=== PATIENT | male | born 1955 | race Caucasian/White ===

== ENCOUNTER → 2018-04-10 08:11 | Outpatient (CLI) | payer OTHER, SELFPAY ==
[2018-04-10 12:08] LABS: Absolute Lymphocyte Count 0.51 X10^3/ul (0.83-4.51); Absolute Neutrophil Count 2.6 X10^3/uL (2.0-7.7); Basophil# 0.02 X10^3/uL; Basophil% 0.5 % (0-1); Eosinophil# 0.17 X10^3/uL; Eosinophils% 4.5 % (0-5); Hematocrit 43.4 % (40-54); Hemoglobin 14.4 g/dl (13.0-16.5); Lymphocyte # 0.51 X10^3/ul (4.0); Lymphocyte % 13.5 % (19-41); Mean Corp Hgb Conc 33.2 g/gl (32-36); Mean Corpuscular Hgb 30.3 pg (27.0-32.0); Mean Corpuscular Volume 91.2 fL (80-94); Mean Platelet Vol. 11.1 fl (6.2-12.0); Monocyte# 0.42 X10^3/uL; Monocyte% 11.1 % (0-10); Neutrophil # 2.64 X10^3/uL (2.7-7.7); Neutrophil % 69.9 % (47-70); Platelet Count 196 K/mm3 (150-450); RBC Distribution Width CV 12.9 % (11.6-14.6); RBC Distribution Width SD 42.3 fl (35.1-43.9); Red Blood Count 4.76 M/mm3 (4.6-6.2); White Blood Count 3.8 K/mm3 (4.4-11.0)
[2018-04-10 12:10] LABS: Differential Indicated SCAN CRITERIA MET; POSITIVE COUNT NO; POSITIVE DIFFERENTIAL YES; POSITIVE MORPHOLOGY NO
[2018-04-10 12:25] LABS: Microalbumin,Random Urine 34.3 mg/L (NO RANGE EST.); Microalbumin:Creatinine Ratio 13.5 mg/g CRE (<30 mg/g CRE)
[2018-04-10 12:38] LABS: Platelet Estimate ADEQUATE (ADEQ); Platelet Morphology LARGE
[2018-04-10 12:39] LABS: Red Cell Morphology NORM C+C NORMAL (NORM C&C)
[2018-04-10 12:45] LABS: Hemoglobin A1c 6.4 % (4.2-6.3)
[2018-04-10 13:00] LABS: ALB/GLOB Ratio 1.1 RATIO (0.9-2.4); AST(SGOT) 25 U/L (15-37); Alanine Aminotransfer ALT/SGPT 38 U/L (16-61); Albumin, Serum 3.9 g/dL (3.2-5.0); Alkaline Phosphatase 65 U/L (45-117); Anion Gap 10 (5-15); BUN 17 mg/dL (7-18); BUN/Creat Ratio 16.2 RATIO (10-20); Calcium,Total 8.9 mg/dL (8.5-10.1); Chloride 104 mmol/L (98-107); Cholesterol 177 mg/dL (200); Creatinine, Serum 1.05 mg/dL (0.70-1.30); EST Glomerular Filtration Rate 76 mL/min (>60); Est Glom Filt Rate - Afr Amer 91 mL/min (>60); Globulin 3.7 g/dL (2.2-4.2); Glucose 123 mg/dL (74-106); High Density Lipoprotein 43 mg/dL; PSA,Total - Annual Screen 2.21 ng/mL (0.00-4.00); Potassium 3.9 mmol/L (3.5-5.1); Protein, Total 7.6 g/dL (6.4-8.2); Sodium Level 141 mmol/L (136-145); Triglycerides 83 mg/dL; Uric Acid 6.8 mg/dL (3.5-7.2); Very Low Density Lipoprotein 17 mg/dL (5-40)
== END ==
PROVIDERS: Family Provider Family Medicine; PCP Family Medicine; Visit Provider Family Medicine
DX: E11.9 Type 2 diabetes mellitus without complications (principal); I10 Essential (primary) hypertension; Z12.5 Encounter for screening for malignant neoplasm of prostate; M10.9 Gout, unspecified; Z78.9 Other specified health status
CPT/HCPCS: 36415; 80053; 80061; 82043; 82570; 83036; 84153; 84550; 85025; G0103

== ENCOUNTER → 2019-05-28 08:13 | Outpatient (CLI) | payer MEDICARE, OTHER, SELFPAY ==
[2016-09-01 06:32] VITALS: BMI 24.3
[2019-05-28 09:01] LABS: Absolute Lymphocyte Count 0.53 X10^3/uL (0.83-4.51); Absolute Neutrophil Count 4.1 X10^3/uL (2.0-7.7); Basophil# 0.03 X10^3/uL; Basophil% 0.6 % (0-1); Eosinophil# 0.18 X10^3/uL; Eosinophils% 3.3 % (0-5); Hematocrit 42.1 % (40-54); Hemoglobin 13.7 g/dL (13.0-16.5); Lymphocyte # 0.53 X10^3/ul (4.0); Lymphocyte % 9.7 % (19-41); Mean Corp Hgb Conc 32.5 g/dL (32-36); Mean Corpuscular Hgb 29.5 pg (27.0-32.0); Mean Corpuscular Volume 90.5 fL (80-94); Monocyte# 0.57 X10^3/uL; Monocyte% 10.5 % (0-10); NRBC Flagged by Analyzer 0 % (0-5); Neutrophil # 4.11 X10^3/uL (2.7-7.7); Neutrophil % 75.3 % (47-70); POSITIVE DIFFERENTIAL YES; Platelet Count 189 K/mm3 (150-450); RBC Distribution Width CV 12.8 % (11.6-14.6); RBC Distribution Width SD 42.1 fl (35.1-43.9); Red Blood Count 4.65 M/mm3 (4.6-6.2); White Blood Count 5.5 K/mm3 (4.4-11.0)
[2019-05-28 09:05] LABS: Differential Indicated SCAN CRITERIA MET
[2019-05-28 09:29] LABS: ALB/GLOB Ratio 1.2 RATIO (0.9-2.4); AST(SGOT) 23 U/L (15-37); Alanine Aminotransfer ALT/SGPT 53 U/L (16-61); Albumin, Serum 3.9 g/dL (3.2-5.0); Alkaline Phosphatase 69 U/L (45-117); Anion Gap 4 (5-15); BUN 19 mg/dL (7-18); BUN/Creat Ratio 17.8 RATIO (10-20); Calcium,Total 9.2 mg/dL (8.5-10.1); Chloride 106 mmol/L (98-107); Creatinine, Serum 1.07 mg/dL (0.70-1.30); EST Glomerular Filtration Rate 74 mL/min (>60); Est Glom Filt Rate - Afr Amer 89 mL/min (>60); Globulin 3.3 g/dL (2.2-4.2); Glucose 149 mg/dL (74-106); PSA,Total - Annual Screen 2.44 ng/mL (0.00-4.00); Potassium 3.5 mmol/L (3.5-5.1); Protein, Total 7.2 g/dL (6.4-8.2); Sodium Level 139 mmol/L (136-145)
[2019-05-28 09:30] LABS: Hemoglobin A1c 6.7 % (4.2-6.3)
[2019-05-28 09:36] LABS: Microalbumin,Random Urine 37.4 mg/L (NO RANGE EST.); Microalbumin:Creatinine Ratio 9.6 mg/g CRE (<30 mg/g CRE)
== END ==
LOC: LAB.FUTURE 08:19 → BFHLAB 08:39
PROVIDERS: Family Provider Family Medicine; PCP Family Medicine; Visit Provider Family Medicine
DX: Z00.00 Encounter for general adult medical examination without abnormal findings (principal); I10 Essential (primary) hypertension; E11.9 Type 2 diabetes mellitus without complications; M10.9 Gout, unspecified; Z12.5 Encounter for screening for malignant neoplasm of prostate
CPT/HCPCS: 36415; 80053; 82043; 82570; 83036; 84153; 84550; 85025; G0103

== ENCOUNTER → 2020-05-11 09:56 | Outpatient (CLI) | payer MEDICARE, OTHER, SELFPAY ==
[2020-05-11 12:59] LABS: Anion Gap 7 (5-15); BUN 17 mg/dL (7-18); Calcium,Total 9.6 mg/dL (8.5-10.1); Chloride 100 mmol/L (98-107); Creatinine, Serum 1.21 mg/dL (0.70-1.30); EST Glomerular Filtration Rate 64 mL/min (>60); Est Glom Filt Rate - Afr Amer 77 mL/min (>60); Glucose 164 mg/dL (74-106); Potassium 3.5 mmol/L (3.5-5.1); Sodium Level 138 mmol/L (136-145)
== END ==
PROVIDERS: PCP Family Medicine; Visit Provider Family Medicine
DX: I10 Essential (primary) hypertension (principal)
CPT/HCPCS: 36415; 80048

== ENCOUNTER → 2020-08-03 12:09 | Outpatient (CLI) | payer MEDICARE, OTHER, SELFPAY ==
--- NOTE | 2020-08-03 12:17 | EKG12_ITS ---
Test Reason : PREOP Blood Pressure : / mmHG Vent. Rate : 071 BPM Atrial Rate : 071 BPM P-R Int : 168 ms QRS Dur : 102 ms QT Int : 410 ms P-R-T Axes : 083 047 041 degrees QTc Int : 445 ms Normal sinus rhythm Nonspecific ST abnormality Abnormal ECG Confirmed by VIRIDIANA WHEAT, SANGITA ([id number]), features editor CHELSEA HARRINGTON ([id number]) on 08/04/2020 10:46:27 AM Referred By: Edmundo Nguyen Confirmed By:SANGITA KEMP MD
--- NOTE | 2020-08-03 12:17 | RAD_ITS ---
STUDY: X-RAY CHEST REASON FOR EXAM: Male, 65 years old. PRE OP TECHNIQUE: PA and lateral views of the chest. COMPARISON: None. FINDINGS: Hyperinflation. There is no demonstrated pleural abnormality. Normal size heart. Normal mediastinum and reyna. There is prominence of the pulmonary hilar arteries without peripheral pulmonary vascular congestion, suggesting pulmonary hypertension. Normal visualized aortic arch and descending thoracic aorta. There is a dextroscoliosis of the thoracic spine. Prior rotator cuff surgery of the left shoulder. There is no demonstrated abnormality of the visualized soft tissue structures of the upper abdomen. RAD/Chest PA and Lateral IMPRESSION: Hyperinflation. The lungs are clear. Electronically Signed: Bossman Oliveira MD at 13:52 EDT , Service support ,
[2020-08-03 13:45] LABS: Absolute Lymphocyte Count 0.59 X10^3/uL (0.83-4.51); Absolute Neutrophil Count 2.8 X10^3/uL (2.0-7.7); Basophil# 0.03 X10^3/uL; Basophil% 0.7 % (0-1); Eosinophil# 0.11 X10^3/uL; Eosinophils% 2.7 % (0-5); Hematocrit 41.9 % (40-54); Hemoglobin 13.9 g/dL (13.0-16.5); Lymphocyte # 0.59 X10^3/ul (4.0); Lymphocyte % 14.6 % (19-41); Mean Corp Hgb Conc 33.2 g/dL (32-36); Mean Corpuscular Hgb 30.5 pg (27.0-32.0); Mean Corpuscular Volume 92.1 fL (80-94); Mean Platelet Vol. 11.5 fl (6.2-12.0); Monocyte# 0.51 X10^3/uL; Monocyte% 12.6 % (0-10); NRBC Flagged by Analyzer 0 % (0-5); Neutrophil # 2.79 X10^3/uL (2.7-7.7); Neutrophil % 68.9 % (47-70); POSITIVE DIFFERENTIAL YES; Platelet Count 207 K/mm3 (150-450); RBC Distribution Width CV 12.3 % (11.6-14.6); RBC Distribution Width SD 41.6 fl (35.1-43.9); Red Blood Count 4.55 M/mm3 (4.6-6.2); White Blood Count 4.1 K/mm3 (4.4-11.0)
[2020-08-03 13:47] LABS: Differential Indicated SCAN CRITERIA MET
[2020-08-03 13:48] LABS: International Normalized Ratio 1.1; Prothrombin Time (Protime)PT. 13.1 SECONDS (11.7-14.9)
[2020-08-03 13:49] LABS: Partial Thromboplast Time 33.9 Seconds (24.1-36.2)
[2020-08-03 14:04] LABS: Differential Comment SCANNED
[2020-08-03 14:10] LABS: Anion Gap 5 (5-15); BUN 16 mg/dL (7-18); BUN/Creat Ratio 14.3 RATIO (10-20); Calcium,Total 9.5 mg/dL (8.5-10.1); Chloride 100 mmol/L (98-107); Creatinine, Serum 1.12 mg/dL (0.70-1.30); EST Glomerular Filtration Rate 70 mL/min (>60); Est Glom Filt Rate - Afr Amer 84 mL/min (>60); Glucose 163 mg/dL (74-106); Potassium 3.3 mmol/L (3.5-5.1); Sodium Level 138 mmol/L (136-145)
[2020-08-03 15:41] LABS: Probe Check PASS; Specimen Processing Control PASS
[2020-08-04 11:37] LABS: Pathologist Review Reviewed
== END ==
PROVIDERS: PCP Family Medicine; Referring Provider Orthopaedic Surgery; Visit Provider Orthopaedic Surgery
DX: Z01.818 Encounter for other preprocedural examination (principal); E11.9 Type 2 diabetes mellitus without complications; Z11.59 Encounter for screening for other viral diseases
CPT/HCPCS: 36415; 71046; 80048; 83036; 85025; 85610; 85730; 87635; 93005; C9803; U0002

== ENCOUNTER → 2020-08-28 15:33 | Outpatient (CLI) | payer MEDICARE, OTHER, SELFPAY ==
[2016-09-01 06:32] VITALS: BMI 24.3
== END ==
PROVIDERS: PCP Family Medicine; Visit Provider Orthopaedic Surgery
DX: Z98.890 Other specified postprocedural states (principal)
CPT/HCPCS: 87070; 87205

== ENCOUNTER 2020-11-15 06:11 | Emergency (ER) | payer MEDICARE, OTHER, SELFPAY ==
[2020-11-15 06:11] VITALS: BP 167/77; PULSE 68; RESP 16; TEMP 36.6; O2SAT 99; BMI 24.3
--- NOTE | 2020-11-15 06:27 | CT_ITS ---
STUDY: CT BRAIN WITHOUT CONTRAST REASON FOR EXAM: Male, 65 years old. vertigo RADIATION DOSAGE (If Supplied By Facility): CTDIvol = ( 44.99 ) mGy, DLP = ( 779.24 ) mGycm TECHNIQUE: Transaxial CT imaging of the brain was performed without administration of intravenous contrast material. Individualized dose optimization techniques were used for this CT. COMPARISON: 03/29/2014 FINDINGS: Normal soft tissue structures. Normal calvarium. Normal size ventricles and extra-axial spaces for the patient''s age. Normal white matter tracts of the cerebral hemispheres. Normal basal ganglia and thalami. Normal brainstem. Normal cerebellum. There is no intracranial hemorrhage. There are no findings of an acute ischemic infarction. Normal visualized paranasal sinuses. CT/Brain/Head without Contrast IMPRESSION: Normal unenhanced CT scan of the brain. Electronically Signed: Nikolai Mcdaniel MD at 7:19 EDT Tel , Service support ,
--- NOTE | 2020-11-15 06:28 | EKG12_ITS ---
Test Reason : DIZZINESS Blood Pressure : / mmHG Vent. Rate : 063 BPM Atrial Rate : 063 BPM P-R Int : 184 ms QRS Dur : 102 ms QT Int : 454 ms P-R-T Axes : 055 054 033 degrees QTc Int : 464 ms Normal sinus rhythm Nonspecific ST abnormality Abnormal ECG Confirmed by VIRIDIANA WHEAT, SANGITA ([id number]), health editor CHELSEA HARRINGTON ([id number]) on 11/18/2020 9:17:23 AM Referred By: JEVON Confirmed By:SANGITA KEMP MD
--- NOTE | 2020-11-15 06:31 | EX.ED.DYSGE1 ---
HPI History of Present Illness Chief Complaint: Dizziness Narrative Narrative: Patient presents with vertigo. This started this morning when he woke up he felt off balance. He feels like he cannot walk in a straight line. He has no vision changes. He has no weakness or paresthesias or confusion or any other neurological symptoms. [facility] Medical History (Updated 11/15/20 @ 06:[address] Kulwant Painter MD) Diabetes History of kidney stones Hypertension Lumbar stenosis Home Medications metformin 1,000 mg PO BIDCM 02/06/15 [History Last Taken 09/01/16] diltiazem HCl 240 mg PO DAILY 11/15/20 [History Last Taken Unknown] dulaglutide [Trulicity] 1.5 mg SUBCUT QWEEK 11/15/20 [History Last Taken 11/11/20] hydrochlorothiazide 25 mg PO DAILY 11/15/20 [History Last Taken Unknown] sitagliptin [Januvia] 100 mg PO DAILY 11/15/20 [History Last Taken Unknown] Allergy/AdvReac Type Severity Reaction Status Date / Time No Known Allergies Allergy Verified 11/15/20 06:15 Social History Smoking Status: Never smoker ROS ROS ED ROS Narrative Past medical history: Reviewed, includes diabetes, hypertension Medications: Reviewed Social history: Noncontributory Review of systems: All systems negative except as indicated General: No fever Eyes: No visual changes ENT: No upper airway congestion, normal voice Neck: No neck pain Cardiovascular: No chest pain Respiratory: No shortness of breath or cough Gastrointestinal: No abdominal pain, nausea vomiting or diarrhea Genitourinary: No dysuria Musculoskeletal: Denies myalgias no difficulty with ambulation Skin: No rash Neurological: No memory loss, confusion or any focal weakness. Vertigo as in HPI Psych: No recent behavioral changes Hematologic: No easy bleeding or easy bruising EXAM Physical Exam Narrative Exam Narrative: Physical exam General: Patient appears uncomfortable Head: Normocephalic, Atraumatic Eyes: Conjunctiva not pale ENT: Moist mucous membranes Neck: Supple, Nontender, No lymphadenopathy Cardiovascular: Regular rate, Regular rhythm Respiratory: No distress, CTA bilaterally Abdomen: Soft, Nontender, Nondistended Back: Nontender, Normal Inspection. Negative for: CVA tenderness Extremities: Nontender, No edema Skin: Normal color, No rash Neurological: Alert, Normal Strength, Normal Sensation. He has normal [id number], normal Romberg test. Psychological: Normal affect Const Vital Signs: 11/15/20 06:11 11/15/20 06:24 Temperature 97.8 F Temperature Source Oral Pulse Rate 68 Respiratory Rate 16 Respiratory Effort Normal Non-Labored Respiratory Pattern Normal Blood Pressure 167/77 H Blood Pressure Mean 107 Pulse Ox 99 Oxygen Delivery Method Room Air MDM MDM MDM Narrative Medical decision making narrative: Patient will be treated symptomatically, I will check a CT of the head, however because of his risk factors he will need an MRI. Patient care will be turned over to the oncoming ED physician. Discharge Plan Triage Chief Complaint: Dizziness ED Provider: Kulwant Painter Dx/Rx/DC Orders Clinical Impression: Vertigo Prescriptions: No Action metformin 1,000 MG tablet 1,000 mg PO BIDCM RF: 0 diltiazem HCl 240 mg Capsule,Extended Release 24 Hr 240 mg PO DAILY RF: 0 Januvia 100 mg Tablet 100 mg PO DAILY RF: 0 Trulicity 1.5 mg/0.5 mL Pen Injector 1.5 mg SUBCUT QWEEK RF: 0 hydrochlorothiazide 25 mg tablet 25 mg PO DAILY RF: 0 Primary Care Provider: Yury Orozco Referrals: Yury Orozco DO [Primary Care Provider] -
[2020-11-15] MEDS: Ondansetron 4 MG/2 ML Vial IV (06:42)
[2020-11-15] MEDS: 0.9% Normal Saline 1,000 ML 1000 ML IV (06:42)
[2020-11-15] MEDS: Meclizine HCl 25 MG Tablet PO (06:42)
[2020-11-15 06:53] LABS: Absolute Lymphocyte Count 0.53 X10^3/uL (0.83-4.51); Absolute Neutrophil Count 3.4 X10^3/uL (2.0-7.7); Basophil# 0.02 X10^3/uL; Basophil% 0.4 % (0-1); Eosinophil# 0.17 X10^3/uL; Eosinophils% 3.7 % (0-5); Hematocrit 39.7 % (40-54); Hemoglobin 13.4 g/dL (13.0-16.5); Lymphocyte # 0.53 X10^3/ul (0.83-4.51); Lymphocyte % 11.6 % (19-41); Mean Corp Hgb Conc 33.8 g/dL (32-36); Mean Corpuscular Hgb 30.5 pg (27.0-32.0); Mean Corpuscular Volume 90.4 fL (80-94); Mean Platelet Vol. 12.1 fl (6.2-12.0); Monocyte# 0.44 X10^3/uL; Monocyte% 9.6 % (0-10); NRBC Flagged by Analyzer 0 % (0-5); Neutrophil # 3.38 X10^3/uL (2.7-7.7); Neutrophil % 74.3 % (47-70); POSITIVE DIFFERENTIAL YES; Platelet Count 300 K/mm3 (150-450); RBC Distribution Width CV 12.2 % (11.6-14.6); RBC Distribution Width SD 40.3 fl (35.1-43.9); Red Blood Count 4.39 M/mm3 (4.6-6.2); White Blood Count 4.6 K/mm3 (4.4-11.0)
[2020-11-15 06:54] LABS: Differential Indicated SCAN CRITERIA MET
[2020-11-15 07:13] LABS: Troponin-I HS 7.2 pg/mL (3.0-78.5)
[2020-11-15 07:19] LABS: Differential Comment SCANNED
[2020-11-15 07:40] LABS: ALB/GLOB Ratio 1.1 RATIO (0.9-2.4); AST(SGOT) 29 U/L (15-37); Alanine Aminotransfer ALT/SGPT 38 U/L (16-61); Albumin, Serum 3.9 g/dL (3.2-5.0); Alkaline Phosphatase 68 U/L (45-117); Anion Gap 8 (5-15); BUN 21 mg/dL (7-18); BUN/Creat Ratio 19.6 RATIO (10-20); Calcium,Total 9.1 mg/dL (8.5-10.1); Chloride 101 mmol/L (98-107); Creatinine, Serum 1.07 mg/dL (0.70-1.30); EST Glomerular Filtration Rate 73 mL/min (>60); Est Glom Filt Rate - Afr Amer 89 mL/min (>60); Estimated Creatinine Clearance 83.37 ml/min; Globulin 3.4 g/dL (2.2-4.2); Glucose 214 mg/dL (74-106); Potassium 3.4 mmol/L (3.5-5.1); Protein, Total 7.3 g/dL (6.4-8.2); Sodium Level 138 mmol/L (136-145)
[2020-11-15 08:30] VITALS: BP 150/80; PULSE 61; RESP 15; O2SAT 97
--- NOTE | 2020-11-15 09:11 | PCM.CONS.GEN ---
Assessment & Plan Assessment/Plan (1) Vertigo: PLAN: 1. acute vertigo Symptoms now resolved With the previous history of similar symptoms, this is now resolved symptoms, his fatigue nystagmus. This is all consistent with benign paroxysmal positional vertigo. I will feel it is necessary for the patient, and have further imaging to rule out stroke as I feel the likelihood of this being stroke is extremely slim. I explained this to the patient and his and informed that we could bring him in to get an MRI but would like to be of low yield and I recommended discharge home with as needed meclizine and did recommend a checks and videos out in regards to performing the Aline maneuver in case this were to be protracted make a plan to try this at home. They are completely fine with going home. I did advise that he follow-up with his primary care physician in the next coming weeks just to make sure this continues to do okay in regards to this vertigo. Patient medically stable to be discharged. Discussed with Dr. Kay. HPI Consult Data Date of Consult: 11/15/20 HPI Narrative Reason for Consultation: dizziness HPI Narrative: CHANO MACEDO, is a 65 M who presents presents after waking up acutely dizzy. Patient was diaphoretic and nauseated but no vomiting. Symptoms were concerning and brought him to the emergency room. Patient received and also drawn as well as meclizine. Patient is currently feeling better at this time. Patient had similar symptoms years ago though is vertigo and these felt very similar. [facility] Medical History Diabetes History of kidney stones Hypertension Lumbar stenosis Home Medications metformin 1,000 mg PO BIDCM 02/06/15 [History Last Taken 09/01/16] diltiazem HCl 240 mg PO DAILY 11/15/20 [History Last Taken Unknown] dulaglutide [Trulicity] 1.5 mg SUBCUT QWEEK 11/15/20 [History Last Taken 11/11/20] hydrochlorothiazide 25 mg PO DAILY 11/15/20 [History Last Taken Unknown] meclizine 25 mg PO Q8H PRN PRN #20 tab 11/15/20 [Rx Last Taken Unknown] sitagliptin [Januvia] 100 mg PO DAILY 11/15/20 [History Last Taken Unknown] Allergy/AdvReac Type Severity Reaction Status Date / Time No Known Allergies Allergy Verified 11/15/20 06:15 Social History (Updated 11/15/20 @ 09:[address] Giancarlo Parker, DO) Smoking Status: Never smoker alcohol intake: never ROS ROS Narrative All review of systems were negative except as mentioned above in the history of present illness and the other review of systems. Physical Exam Const alert, no apparent distress, average body habitus and healthy appearing General Appearance: cooperative HEENT normocephalic, head/scalp atraumatic, hearing grossly normal bilaterally, moist oral mucous membranes and dentition normal Eyes PERRL and EOMs intact bilaterally Eyes Narrative: Patient did have bilateral nystagmus but more pronounced on the right but the nystagmus fatigued bilaterally. Resp normal respiratory effort, no use of accessory muscles and clear to auscultation bilaterally Cardio regular rate, regular rhythm, S1 normal heart sound and S2 normal heart sound GI normal to inspection, nondistended, normoactive bowel sounds, soft to palpation, non-tender and non-distended Extremity normal to inspection Neuro Sensorium / Orientation: awake Psych affect normal Lab / Micro Data Attestation: I reviewed the patient's lab results. Result Diagrams: 11/15/20 06:45 11/15/20 07:15 Labs: Laboratory Results - last 24 hr 11/15/20 11/15/20 11/15/20 06:45 06:45 06:45 WBC 4.6 RBC 4.39 L Hgb 13.4 Hct 39.7 L MCV 90.4 MCH 30.5 MCHC 33.8 RDW Std Deviation 40.3 RDW Coeff of Susy 12.2 Plt Count 300 MPV 12.1 H Immature Gran % (Auto) 0.400 Neut % (Auto) 74.3 H Lymph % (Auto) 11.6 L [place] % (Auto) 9.6 Eos % (Auto) 3.7 Baso % (Auto) 0.4 Absolute Neuts (auto) 3.4 Absolute Lymphs (auto) 0.53 L Nucleated RBC % 0 Differential Comment SCANNED Sodium Cancelled Potassium Cancelled Chloride Cancelled Carbon Dioxide Cancelled Anion Gap Cancelled BUN Cancelled Creatinine Cancelled Estim Creat Clear Calc Cancelled Est GFR (MDRD) Af Amer Cancelled Est GFR (MDRD) Non-Af Cancelled BUN/Creatinine Ratio Cancelled Glucose Cancelled Calcium Cancelled Total Bilirubin Cancelled AST Cancelled ALT Cancelled Alkaline Phosphatase Cancelled Troponin I High Sens 7.2 Total Protein Cancelled Albumin Cancelled Globulin Cancelled Albumin/Globulin Ratio Cancelled 11/15/20 07:15 WBC RBC Hgb Hct MCV MCH MCHC RDW Std Deviation RDW Coeff of Susy Plt Count MPV Immature Gran % (Auto) Neut % (Auto) Lymph % (Auto) [place] % (Auto) Eos % (Auto) Baso % (Auto) Absolute Neuts (auto) Absolute Lymphs (auto) Nucleated RBC % Differential Comment Sodium 138 Potassium 3.4 L Chloride 101 Carbon Dioxide 29.0 Anion Gap 8 BUN 21 H Creatinine 1.07 Estim Creat Clear Calc 83.37 Est GFR (MDRD) Af Amer 89 Est GFR (MDRD) Non-Af 73 BUN/Creatinine Ratio 19.6 Glucose 214 H Calcium 9.1 Total Bilirubin 0.50 AST 29 ALT 38 Alkaline Phosphatase 68 Troponin I High Sens Total Protein 7.3 Albumin 3.9 Globulin 3.4 Albumin/Globulin Ratio 1.1 EKG Initial EKG: Attestation: I personally reviewed and interpreted this EKG as follows: Prior EKG tracings: available for review EKG Rhythm Intrepretation: Sinus Rhythm Radiology Impression Brain CT 11/15/20 06:27 IMPRESSION: Normal unenhanced CT scan of the brain. Electronically Signed: Nikolai Mcdaniel MD at 7:19 EDT Tel , Service support , Charges/Coding Visit Charges Office Visits / Consults: [id number] OP Consult L3
[2020-11-15 09:19] VITALS: BP 171/82; PULSE 63; RESP 18; O2SAT 97
== END 2020-11-15 09:37 | disposition home or self-care (01) ==
PROVIDERS: Emergency Medicine; Emergency Provider Emergency Medicine; PCP Family Medicine
DX: R42 Dizziness and giddiness (principal); E11.9 Type 2 diabetes mellitus without complications; Z79.84 Long term (current) use of oral hypoglycemic drugs; Z79.899 Other long term (current) drug therapy; Z87.442 Personal history of urinary calculi
CPT/HCPCS: 70450; 80053; 84484; 85025; 93005; 96374; 99285; J7030; A4216; J2405

== ENCOUNTER → 2022-02-15 | Outpatient (CLI) | payer MEDICARE, OTHER, SELFPAY ==
[2022-02-15 12:28] LABS: Absolute Lymphocyte Count 0.57 X10^3/uL (0.83-4.51); Absolute Neutrophil Count 2.9 X10^3/uL (2.0-7.7); Basophil# 0.04 X10^3/uL; Eosinophil# 0.16 X10^3/uL; Eosinophils% 3.8 % (0-5); Hematocrit 41.4 % (40-54); Hemoglobin 13.6 g/dL (13.0-16.5); Lymphocyte # 0.57 X10^3/ul (0.83-4.51); Lymphocyte % 13.6 % (19-41); Mean Corp Hgb Conc 32.9 g/dL (32-36); Mean Corpuscular Hgb 30.5 pg (27.0-32.0); Mean Corpuscular Volume 92.8 fL (80-94); Mean Platelet Vol. 11.1 fl (6.2-12.0); Monocyte# 0.47 X10^3/uL; Monocyte% 11.2 % (0-10); NRBC Flagged by Analyzer 0 % (0-5); Neutrophil # 2.92 X10^3/uL (2.7-7.7); Neutrophil % 69.9 % (47-70); POSITIVE DIFFERENTIAL YES; Platelet Count 251 K/mm3 (150-450); RBC Distribution Width CV 12.1 % (11.6-14.6); RBC Distribution Width SD 41.3 fl (35.1-43.9); Red Blood Count 4.46 M/mm3 (4.6-6.2); White Blood Count 4.2 K/mm3 (4.4-11.0)
[2022-02-15 12:30] LABS: Differential Indicated SCAN CRITERIA MET
[2022-02-15 13:07] LABS: Platelet Estimate ADEQUATE (ADEQ); Red Cell Morphology NORM C+C NORMAL (NORM C&C)
[2022-02-15 13:09] LABS: ALB/GLOB Ratio 1.1 RATIO (0.9-2.4); AST(SGOT) 16 U/L (15-37); Alanine Aminotransfer ALT/SGPT 36 U/L (16-61); Alkaline Phosphatase 60 U/L (45-117); Anion Gap 8 (5-15); BUN 17 mg/dL (7-18); BUN/Creat Ratio 15.2 RATIO (10-20); Calcium,Total 9.7 mg/dL (8.5-10.1); Chloride 103 mmol/L (98-107); Cholesterol 198 mg/dL (200); Creatinine, Serum 1.12 mg/dL (0.70-1.30); EST Glomerular Filtration Rate 69 mL/min (>60); Est Glom Filt Rate - Afr Amer 84 mL/min (>60); Globulin 3.6 g/dL (2.2-4.2); Glucose 152 mg/dL (74-106); High Density Lipoprotein 40 mg/dL; PSA,Total - Annual Screen 3.19 ng/mL (0.00-4.00); Potassium 4.3 mmol/L (3.5-5.1); Protein, Total 7.6 g/dL (6.4-8.2); Sodium Level 139 mmol/L (136-145); Triglycerides 119 mg/dL; Very Low Density Lipoprotein 24 mg/dL (5-40)
[2022-02-15 13:20] LABS: Microalbumin,Random Urine 9.4 mg/L (NO RANGE EST.); Microalbumin:Creatinine Ratio 3.6 mg/g CRE (<30 mg/g CRE)
[2022-02-15 13:26] LABS: Hemoglobin A1c 6.6 % (3.8-5.6)
[2022-02-16 13:39] LABS: Pathologist Review Reviewed
== END | disposition home or self-care (01) ==
LOC: BFHLAB 08:41
PROVIDERS: PCP Family Medicine; Referring Provider Family Medicine; Visit Provider Family Medicine
DX: E11.9 Type 2 diabetes mellitus without complications (principal); I10 Essential (primary) hypertension; Z12.5 Encounter for screening for malignant neoplasm of prostate
CPT/HCPCS: 36415; 80053; 80061; 82043; 82570; 83036; 84153; 85025; G0103

== ENCOUNTER → 2023-02-23 | Outpatient (CLI) | payer MEDICARE, OTHER, SELFPAY ==
[2023-02-23 12:21] LABS: Absolute Neutrophil Count 4.5 X10^3/uL (2.0-7.7); Basophil# 0.02 X10^3/uL; Basophil% 0.3 % (0-1); Eosinophil# 0.15 X10^3/uL; Eosinophils% 2.5 % (0-5); Hematocrit 40.4 % (40-54); Hemoglobin 13.3 g/dL (13.0-16.5); Lymphocyte % 11.7 % (19-41); Mean Corp Hgb Conc 32.9 g/dL (32-36); Mean Corpuscular Hgb 30.4 pg (27.0-32.0); Mean Corpuscular Volume 92.4 fL (80-94); Mean Platelet Vol. 10.8 fl (6.2-12.0); NRBC Flagged by Analyzer 0 % (0-5); Platelet Count 268 K/mm3 (150-450); RBC Distribution Width CV 12.2 % (11.6-14.6); RBC Distribution Width SD 41.1 fl (35.1-43.9); Red Blood Count 4.37 M/mm3 (4.6-6.2)
[2023-02-23 12:39] LABS: Vitamin B12 445 pg/mL (211-911)
[2023-02-23 12:48] LABS: AST(SGOT) 17 U/L (15-37); Alanine Aminotransfer ALT/SGPT 36 U/L (16-61); Albumin, Serum 3.8 g/dL (3.2-5.0); Alkaline Phosphatase 72 U/L (45-117); Anion Gap 6 (5-15); BUN 19 mg/dL (7-18); BUN/Creat Ratio 15.7 RATIO (10-20); Calcium,Total 9.4 mg/dL (8.5-10.1); Chloride 103 mmol/L (98-107); Cholesterol 174 mg/dL (200); Creatinine, Serum 1.21 mg/dL (0.70-1.30); EST Glomerular Filtration Rate 63 mL/min (>60); Est Glom Filt Rate - Afr Amer 77 mL/min (>60); Globulin 3.7 g/dL (2.2-4.2); Glucose 141 mg/dL (74-106); High Density Lipoprotein 37 mg/dL; PSA,Total - Annual Screen 2.98 ng/mL (0.00-4.00); Potassium 3.5 mmol/L (3.5-5.1); Protein, Total 7.5 g/dL (6.4-8.2); Sodium Level 139 mmol/L (136-145); T4 Free Direct 1.09 ng/dL (0.76-1.46); Thyroid Stim Hormone (TSH) 1.17 uIU/mL (0.358-3.74); Triglycerides 133 mg/dL; Very Low Density Lipoprotein 27 mg/dL (5-40)
[2023-02-23 13:06] LABS: Microalbumin,Random Urine 9.7 mg/L (NO RANGE EST.); Microalbumin:Creatinine Ratio 3.8 mg/g CRE (<30 mg/g CRE)
[2023-02-23 18:24] LABS: Hemoglobin A1c 6.7 % (3.8-5.6)
== END | disposition home or self-care (01) ==
LOC: BFHLAB 11:13
PROVIDERS: PCP Family Medicine; Visit Provider Family Medicine
DX: E11.9 Type 2 diabetes mellitus without complications (principal); I10 Essential (primary) hypertension; Z12.5 Encounter for screening for malignant neoplasm of prostate
CPT/HCPCS: 36415; 80053; 80061; 82043; 82570; 82607; 83036; 84153; 84439; 84443; 85025; G0103

== ENCOUNTER → 2024-02-27 | Outpatient (CLI) | payer MEDICARE, OTHER, SELFPAY ==
[2024-02-27 12:28] LABS: Absolute Lymphocyte Count 0.84 X10^3/uL (0.83-4.51); Absolute Neutrophil Count 4.4 X10^3/uL (2.0-7.7); Basophil# 0.04 X10^3/uL; Basophil% 0.7 % (0-1); Eosinophil# 0.13 X10^3/uL; Eosinophils% 2.2 % (0-5); Hemoglobin 13.1 g/dL (13.0-16.5); Lymphocyte # 0.84 X10^3/ul (0.83-4.51); Lymphocyte % 14.1 % (19-41); Mean Corp Hgb Conc 32.8 g/dL (32-36); Mean Corpuscular Hgb 30.5 pg (27.0-32.0); Mean Corpuscular Volume 93.2 fL (80-94); Mean Platelet Vol. 11.3 fl (6.2-12.0); Monocyte# 0.54 X10^3/uL; NRBC Flagged by Analyzer 0 % (0-5); Neutrophil # 4.37 X10^3/uL (2.7-7.7); Neutrophil % 73.2 % (47-70); Platelet Count 269 K/mm3 (150-450); RBC Distribution Width CV 12.6 % (11.6-14.6); RBC Distribution Width SD 43.2 fl (35.1-43.9); Red Blood Count 4.29 M/mm3 (4.6-6.2)
[2024-02-27 12:37] LABS: Hemoglobin A1c 7.1 % (3.8-5.6)
[2024-02-27 12:42] LABS: ALB/GLOB Ratio 1.1 RATIO (0.9-2.4); AST(SGOT) 14 U/L (15-37); Alanine Aminotransfer ALT/SGPT 28 U/L (16-61); Alkaline Phosphatase 68 U/L (45-117); Anion Gap 6 (5-15); BUN 31 mg/dL (7-18); BUN/Creat Ratio 24.4 RATIO (10-20); Chloride 105 mmol/L (98-107); Cholesterol 195 mg/dL (200); Creatinine, Serum 1.27 mg/dL (0.70-1.30); EST Glomerular Filtration Rate 60 mL/min (>60); Est Glom Filt Rate - Afr Amer 72 mL/min (>60); Globulin 3.5 g/dL (2.2-4.2); Glucose 158 mg/dL (74-106); High Density Lipoprotein 44 mg/dL; Potassium 4.6 mmol/L (3.5-5.1); Protein, Total 7.5 g/dL (6.4-8.2); Sodium Level 141 mmol/L (136-145); Triglycerides 97 mg/dL; Very Low Density Lipoprotein 19 mg/dL (5-40)
[2024-02-27 13:09] LABS: Microalbumin,Random Urine 6.5 mg/L (NO RANGE EST.)
== END | disposition home or self-care (01) ==
LOC: BFHLAB 10:07
PROVIDERS: PCP Family Medicine; Referring Provider Family Medicine; Visit Provider Family Medicine
DX: E11.9 Type 2 diabetes mellitus without complications (principal); I10 Essential (primary) hypertension
CPT/HCPCS: 36415; 80053; 80061; 82043; 82570; 83036; 85025

== ENCOUNTER → 2024-12-05 | Outpatient (CLI) | payer MEDICARE, OTHER, SELFPAY ==
--- NOTE | 2024-12-05 16:35 | STRESSREP ---
Stress Test Report Exercise stress test. 69-year-old man with a history of dyspnea on exertion Stress protocol: Resting EKG demonstrates normal sinus rhythm with a rate of 73 bpm resting blood pressure is 122/80 mmHg. The patient exercised according to the regular Jarrod protocol for a total duration of 6 minutes attaining a maximum heart rate of 129 bpm which was 86% of maximum predicted heart rate; the maximum workload was 7 metabolic equivalents. At rest there were no ST or T wave changes noted to suggest ischemia and at peak exercise [address] depression were noted in leads II, III and aVF V5 and V6 associated with premature ventricular complexes especially during recovery. The patient did not experience any chest discomfort but shortness of breath was noted. The peak blood pressure was 174/80 mmHg. Rate-pressure product was 19,000. Conclusion: Exercise stress test with EKG changes suggestive of ischemia at a moderate workload. Mild functional aerobic impairment. Premature ventricular complexes noted during exercise.
== END | disposition home or self-care (01) ==
LOC: CVS 09:54
PROVIDERS: PCP Family Medicine; Referring Provider Family Medicine; Visit Provider Family Medicine
DX: R06.09 Other forms of dyspnea (principal)
CPT/HCPCS: 93017

== ENCOUNTER → 2024-12-11 | Outpatient (CLI) | payer MEDICARE, OTHER, SELFPAY ==
--- NOTE | 2024-12-11 14:06 | RAD_ITS ---
PROCEDURE: CHEST PA AND LATERAL 12/11/2024 REASON FOR EXAM: LOVING TECHNIQUE: CHEST PA AND LATERAL COMPARISON: PA and lateral chest 08/03/2020. RAD/Chest PA and Lateral IMPRESSION: Degenerative changes of the spine and dextroscoliosis again noted. Lungs appear clear of acute disease. No pleural effusion or pneumothorax is noted. The cardiomediastinal silhouette is stable, without evidence of cardiomegaly. No acute process is seen. Reading Location: [place] [id number]
[2024-12-11 14:35] LABS: Hematocrit 38.2 % (40-54); Hemoglobin 13.0 g/dL (13.0-16.5); Immature Granulocytes Count 0.080 X10^3/uL (0.0-0.0); Mean Corp Hgb Conc 34.0 g/dL (32-36); Mean Corpuscular Volume 91.6 fL (80-94); Mean Platelet Vol. 10.4 fl (6.2-12.0); NRBC Flagged by Analyzer 0 % (0-5); Platelet Count 289 K/mm3 (150-450); RBC Distribution Width CV 12.2 % (11.6-14.6); RBC Distribution Width SD 40.8 fl (35.1-43.9); Red Blood Count 4.17 M/mm3 (4.6-6.2); White Blood Count 8.6 K/mm3 (4.4-11.0)
[2024-12-11 15:54] LABS: Anion Gap 14 (5-15); BUN 25 mg/dL (4-19); BUN/Creat Ratio 20.8 RATIO (10-20); Calcium,Total 9.8 mg/dL (7.6-11.0); Carbon Dioxide 26.9 mmol/L (21.0-32.0); Chloride 99 mmol/L (98-108); Glucose 141 mg/dL (70-99); Potassium 3.9 mmol/L (3.3-5.1)
== END | disposition home or self-care (01) ==
LOC: RAD 14:05
PROVIDERS: PCP Family Medicine; Referring Provider Physician Assistant Medical; Visit Provider Physician Assistant Medical
DX: R94.39 Abnormal result of other cardiovascular function study (principal); R09.89 Other specified symptoms and signs involving the circulatory and respiratory systems; R06.09 Other forms of dyspnea
CPT/HCPCS: 36415; 71046; 80048; 85025

== ENCOUNTER 2024-12-25 06:55 | Day surgery (SDC) | payer MEDICARE, OTHER, SELFPAY ==
[2024-12-24 07:58] VITALS: BMI 24.5
--- OUTSIDE RECORDS SUMMARY | 2024-12-25 06:58 | XMS RPT_ITS | CCD ---
Author Organization [facility] Inform ion Partnership [facility] Care Team Providers Care Laster Hand Name Role Phone Pam LUKE, Dr. Cotton Primary Care Provider [phone] Pam LUKE, Dr. Cotton Attending Provider [phone] Pam LUKE, Dr. Cotton Referring Provider [phone] Pam LUKE, Dr. Cotton Other Provider Teri WHEAT, Dr. Ritter Attending Provider Radha Gutierrez Attending Provider [phone] Radha Gutierrez Referring Provider [phone] Radha Gutierrez Attending Unavail able Radha Gutierrez Referring Unavail able Yury Orozco Primary Care Unavailable PamYury hernandez Attending Unavailable PamYury Referring Unavailable PamYury Primary Care Unavailable PamYury hernandez Referring Unavailable Pam, Yury Primary Care Unavailable Yury Orozco Attending Unavailable Stone Williamson Attending Unavailable Teri [place] Referring Unavailable Pam, Yury Primary Care Unavailable PamYury Attending Unavailable Pam, Yury Referring Unavailable Pam, Yury Primary Care Unavailable Teri, Stone Attending Unavailable Pam, Yury Referring Unavailable Pam, Yury Primary Care Unavailable PamYury hernandez Consulting Unavailable Pam, Yury Referring Unavailable Radha Gutierrez Attending Unavail able PamYury hernandez Primary Care Unavailable Allergies Allergy Classification Reported Allergen(s) Allergy Type Date of Onset Reaction(s) Facility (3 sources) Enalapril Drug Allergy 12-11-2024 [facility] (3 sources) Pravastatin Drug Allergy 12-11-2024 fatigue [facility] (3 sources) rosuvastatin Drug Allergy 12-11-2024 fatigue [facility] (1 source) Enalapril Drug Allergy 12-11-2024 [facility] (1 source) Pravastatin Drug Allergy 12-11-2024 [facility] (1 source) rosuvastatin Drug Allergy 12-11-2024 [facility] Medications Current Medications Medication Drug Class(es) Dates Sig (Normalized) Sig (Original) aspirin 81 mg delayed release oral tablet (3 sources) Platelet Aggregation Inhibitor, Nonsteroidal Anti-inflammatory Drug Start: 12-11-2024 take 1 tablet by mouth once daily Aspirin (Adult Aspirin Regimen) 81 mg tablet,delayed release (DR/EC) Active 81 mg PO daily December 11, 2024 12:00am cholecalciferol 0.05 mg oral capsule (3 sources) Vitamin D Start: 12-11-2024 take 1 capsule by mouth once daily Cholecalciferol (Vitamin D3) 50 mcg (2,000 unit) capsule Active 50 ug PO daily December 11, 2024 12:00am 24 hr dilTIAZem hydrochloride 360 mg extended release oral capsule (8 sources) Calcium Channel Colleen Start: 12-11-2024 take 1 capsule by mouth every twenty-four hours Diltiazem Hcl 360 mg capsule,extended release 24hr Active mg PO December 11, 2024 12:00am Start: 11-15-2020 End: 12-11-2024 take 1 capsule by mouth once daily Diltiazem Hcl 240 mg Capsule,Extended Release 24 Hr Discontinued 240 mg PO DAILY November 15, 2020 12:00am December 11, 2024 7:59am ezetimibe 10 mg oral tablet (3 sources) Dietary Cholesterol Absorption Inhibitor Start: 12-11-2024 take 1 tablet by mouth once daily Ezetimibe (Zetia) 10 mg tablet Active 10 mg PO daily 06 04December 11, 2024 12:00am famotidine 40 mg oral tablet (3 sources) Histamine-2 Receptor Antagonist Start: 12-11-2024 take 1 tablet by mouth once daily Famotidine 40 mg tablet Active 40 mg PO daily December 11, 2024 12:00am glimepiride 2 mg oral tablet (6 sources) Sulfonylurea Start: 12-11-2024 End: 12-11-2024 take 1 tablet by mouth once daily Glimepiride 2 mg tablet Active 2 mg PO DAILY December 11, 2024 1:01pm hydroCHLOROthiazide 25 mg oral tablet (5 sources) Thiazide Diuretic Start: 11-15-2020 take 1 tablet by mouth once daily Hydrochlorothiazide 25 mg tablet Active 25 mg PO DAILY November 15, 2020 12:00am losartan potassium 100 mg oral tablet (3 sources) Angiotensin 2 Receptor Colleen Start: 12-11-2024 take 1 tablet by mouth once daily Losartan 100 mg tablet Active 100 mg PO daily December 11, 2024 12:00am metFORMIN hydrochloride 500 mg oral tablet (8 sources) Biguanide Start: 12-11-2024 Metformin 500 mg tablet Active mg PO December 11, 2024 12:00am Start: 02-06-2015 End: 12-11-2024 take 1 tablet by mouth twice daily at mealtime Metformin 1,000 MG tablet Discontinued 1000 mg PO TWICE DAILY WITH MEALS February 06, 2015 12:00am December 11, 2024 7:57am Multivitamin tablet (3 sources) Start: 12-11-2024 Multivitamin t ablet Active 1 {tbl} PO EVERY MORNING December 11, 2024 12:00am Semaglutide (3 sources) Start: 12-11-2024 Semaglutide (O zempic) 1 mg/dose (4 mg/3 mL) pen injector Active mg SC December 11, 2024 12:00am Type 2 diabetic ubidecarenone 100 mg oral capsule (3 sources) Start: 12-11-2024 take 10 capsules by mouth once daily Coenzyme Q10 100 mg capsule Active 100 mg PO daily December 11, 2024 12:00am Completed/Discontinued Medications Medication Drug Class(es) Dates Sig (Normalized) Sig (Original) 0.5 ml dulaglutide 3 mg/ml auto-injector (5 sources) GLP-1 Receptor Agonist Start: 11-15-2020 End: 12-11-2024 Dulaglutide (Trulicity) 1.5 mg/0.5 mL Pen Injector Discontinued 1.5 mg SC EVERY WEEK November 15, 2020 12:00am December 11, 2024 7:58am meclizine hydrochloride 25 mg oral tablet (5 sources) Antiemetic Start: 11-15-2020 End: 12-11-2024 take 1 tablet by mouth every eight hours as needed for dizziness Meclizine 25 MG tablet Discontinued 25 mg PO EVERY 8 HOURS NEEDED as needed for Dizziness 20 0 November 15, 2020 12:00am December 11, 2024 7:59am rosuvastatin calcium 5 mg oral tablet (3 sources) HMG-CoA Reductase Inhibitor Start: 12-11-2024 End: 12-11-2024 take 1 tablet by mouth once daily Rosuvastatin 5 mg tablet Discontinued 5 mg PO daily December 11, 2024 12:00am December 11, 2024 1:00pm SITagliptin 100 mg oral tablet (5 sources) Dipeptidyl Peptidase 4 Inhibitor Start: 11-15-2020 End: 12-11-2024 take 1 tablet by mouth once daily Sitagliptin Phosphate (Januvia) 100 mg Tablet Discontinued 100 mg PO DAILY November 15, 2020 12:00am December 11, 2024 7:59am Problems Problem Classification Problem Date Documented Date Episodic/Chronic Conditions associated with dizziness or vertigo (5 sources) Vertigo; Translations: [Dizziness and giddiness] 11-15-2020 Episodic Diabetes mellitus without complication (5 sources) Diabetes mellitus; Translations: [Type 2 diabetes mellitus without complications] Onset: 03-20-2024 12-11-2024 Chronic Disorders of lipid metabolism (6 sources) Hyperlipidemia; Translations: [Hyperlipidemia, unspecified] 12-11-2024 Chronic Esophageal disorders (3 sources) Gastroesophageal reflux disease; Translations: [Gastro-esophageal reflux disease without esophagitis] 12-11-2024 Chronic Essential hypertension (7 sources) Hypertensive disorder; Translations: [Essential (primary) hypertension] Onset: 12-11-2024 12-11-2024 Chronic Other circulatory disease (6 sources) Carotid bruit; Translations: [Other specified symptoms and signs involving the circulatory and respiratory systems] 12-11-2024 Episodic Other circulatory disease (1 source) Other specified symptoms and signs involving the circulatory and respiratory systems; Translations: [Other specified symptoms and signs involving the circulatory and respiratory systems] Onset: 12-11-2024 Episodic Other lower respiratory disease (6 sources) Dyspnea on exertion; Translations: [Other forms of dyspnea] 12-11-2024 Episodic Other lower respiratory disease (2 sources) Other forms of dyspnea; Translations: [Other forms of dyspnea] Onset: 12-11-2024 Episodic Other screening for suspected conditions (not mental disorders or infectious disease) (8 sources) Cardiovascular stress test abnormal; Translations: [Abnormal result of other cardiovascular function study] Onset: 12-11-2024 12-11-2024 Episodic Results Test Name Value Interpretation Reference Range Facility Absolute lymphocyte countOrd ered By: Radha Adame on 12-11-2024 Lymphocytes Auto (Unsp spec) [#/Vol] 1.08 10*3/uL 0.83-4.51 [facility] Absolute neutrophil countOrd ered By: Radha Adame on 12-11-2024 Neutrophils (Bld) [#/Vol] 6.5 10*3/uL 2.0-7.7 [facility] Anion gap in Serum or Plasma Ordered By: Radha Adame on 12-11-2024 Anion gap [Moles/Vol] 14 mmol/L 5-15 [facility] Automated lymphocyte count a s percentage of total leukocytesOrdered By: Radha Adame on 12-11-2024 Lymphocytes/100 WBC Auto (Unsp spec) 12.5 % Low 19-41 [facility] BUN/creatinine ratioOrdered By: Radha Adame on 12-11-2024 Urea nitrogen/Creatinine [Mass ratio] 20.8 mg/mg High 10-20 [facility] Basic Metabolic Profile (BMP )on 12-11-2024 BUN/CRE 20.8 RATIO High 10-20 [facility] Comment on above: Performed By: #### L 500.2500, L100.0100 #### [facility] [address] [place], [address] Calcium [Mass/Vol] 9.8 mg/dL Normal 7.6-11.0 [facility] Comment on above: Performed By: #### L 500.2500, L100.0100 #### [facility] [address] [place], [address] Chloride [Moles/Vol] 99 mmol/L Normal 98-108 [facility] Comment on above: Performed By: #### L 500.2500, L100.0100 #### [facility] [address] [place], [address] CO2 [Moles/Vol] 26.9 mmol/L Normal 21.0-32.0 [facility] Comment on above: Performed By: #### L 500.2500, L100.0100 #### [facility] [address] [place], [address] Creatinine [Mass/Vol] 1.19 mg/dL Normal 0.70-1.20 [facility] Comment on above: Performed By: #### L 500.2500, L100.0100 #### [facility] [address] [place], [address] GAP 14 Normal 5-15 [facility] Comment on above: Performed By: #### L 500.2500, L100.0100 #### [facility] [address] [place], [address] GFR/1.73 sq M.predicted among non-blacks MDRD (S/P/Bld) [Vol rate/Area] 66 mL/min/{1.73_m2} Normal >60 [facility] Comment on above: Result Comment: mL/m in/1.73m2 CKD-EPI Creatinine Equation (2020) Performed By: #### L 500.2500, L100.0100 #### [facility] [address] [place], [address] Glucose [Mass/Vol] 141 mg/dL High 70-99 [facility] Comment on above: Performed By: #### L 500.2500, L100.0100 #### [facility] [address] [place], [address] Potassium [Moles/Vol] 3.9 mmol/L Normal 3.3-5.1 [facility] Comment on above: Result Comment: Hemo lysis present, Results??could be affected. ?? Performed By: #### L 500.2500, L100.0100 #### [facility] [address] [place], [address] Sodium [Moles/Vol] 139 mmol/L Normal 133-145 [facility] Comment on above: Performed By: #### L 500.2500, L100.0100 #### [facility] [address] [place], [address] Urea nitrogen [Mass/Vol] 25 mg/dL High 4-19 [facility] Comment on above: Performed By: #### L 500.2500, L100.0100 #### [facility] [address] [place], [address] Basophil percentageOrdered B y: Radha Adame on 12-11-2024 Basophils/100 WBC (Bld) 0.3 % 0-1 [facility] CBC W/Diff, Automatedon Absolute Lymph 1.08 X10 3/uL Normal 0.83-4.51 [facility] Comment on above: Performed By: #### L 500.2500, L100.0100 #### [facility] [address] [place], [address] Absolute Neut 6.5 X10 3/uL Normal 2.0-7.7 [facility] Comment on above: Performed By: #### L 500.2500, L100.0100 #### [facility] [address] [place], [address] Basophils/100 WBC (Bld) 0.3 % Normal 0-1 [facility] Comment on above: Performed By: #### L 500.2500, L100.0100 #### [facility] [address] [place], [address] Eosinophils/100 WBC (Bld) 1.4 % Normal 0-5 [facility] Comment on above: Performed By: #### L 500.2500, L100.0100 #### [facility] [address] [place], [address] Erythrocyte distribution width (RBC) [Ratio] 12.2 % Normal 11.6-14.6 [facility] Comment on above: Performed By: #### L 500.2500, L100.0100 #### [facility] [address] [place], [address] Hematocrit (Bld) [Volume fraction] 38.2 % Low 40-54 [facility] Comment on above: Performed By: #### L 500.2500, L100.0100 #### [facility] [address] [place], [address] Hemoglobin (Bld) [Mass/Vol] 13.0 g/dL Normal 13.0-16.5 [facility] Comment on above: Performed By: #### L 500.2500, L100.0100 #### [facility] [address] [place], [address] IG% 0.900 Normal 0.0-0.9 [facility] Comment on above: Result Comment: IG% - Immature Granulocytes (promyelocytes, myelocytes and metamyelocytes) > 1% indicates that a LEFT SHIFT is Present. Performed By: #### L 500.2500, L100.0100 #### [facility] [address] [place], [address] Lymphocytes/100 WBC (Bld) 12.5 % Low 19-41 [facility] Comment on above: Performed By: #### L 500.2500, L100.0100 #### [facility] [address] [place], [address] MCH (RBC) [Entitic mass] 31.2 pg Normal 27.0-32.0 [facility] Comment on above: Performed By: #### L 500.2500, L100.0100 #### [facility] [address] [place], [address] MCHC (RBC) [Mass/Vol] 34.0 g/dL Normal 32-36 [facility] Comment on above: Performed By: #### L 500.2500, L100.0100 #### [facility] [address] [place], [address] MCV (RBC) [Entitic vol] 91.6 fL Normal 80-94 [facility] Comment on above: Performed By: #### L 500.2500, L100.0100 #### [facility] [address] [place], [address] Monocytes/100 WBC (Bld) 10.1 % High 0-10 [facility] Comment on above: Performed By: #### L 500.2500, L100.0100 #### [facility] [address] [place], [address] Neutrophils/100 WBC (Bld) 74.8 % High 47-70 [facility] Comment on above: Performed By: #### L 500.2500, L100.0100 #### [facility] [address] [place], [address] Nucleated RBC (Bld) [#/Vol] 0 10*3/uL Normal 0-5 [facility] Comment on above: Performed By: #### L 500.2500, L100.0100 #### [facility] [address] [place], [address] Platelet mean volume (Bld) [Entitic vol] 10.4 fL Normal 6.2-12.0 [facility] Comment on above: Performed By: #### L 500.2500, L100.0100 #### [facility] [address] [place], [address] Platelets (Bld) [#/Vol] 289 10*3/uL Normal 150-450 [facility] Comment on above: Performed By: #### L 500.2500, L100.0100 #### [facility] [address] [place], [address] RBC (Bld) [#/Vol] 4.17 10*6/uL Low 4.6-6.2 [facility] Comment on above: Performed By: #### L 500.2500, L100.0100 #### [facility] [address] [place], [address] RDW SD 40.8 fl Normal 35.1-43.9 [facility] Comment on above: Performed By: #### L 500.2500, L100.0100 #### [facility] [address] [place], [address] WBC (Bld) [#/Vol] 8.6 10*3/uL Normal 4.4-11.0 [facility] Comment on above: Performed By: #### L 500.2500, L100.0100 #### [facility] [address] [place], [address] Carbon dioxide, total [Moles /volume] in Central venous bloodOrdered By: Radha Adame on 12-11-2024 CO2 [Moles/Vol] 26.9 mmol/L 21.0-32.0 [facility] Chest PA and Lateralon 12-11 Chest PA and Lateral [facility] [address] [place] [address] Chest PA and Lateral MR#: [id number] Acct: [id number] Name: CHANO MACEDO Rep #: [id number] : 1955 M 69 From: Timothy Clark PCP: Dr. Yury Orozco, DO Status: REG CLI Study: Chest PA and Lateral Date of Exam: 12/11/24 Exam# [id number] Ordering Dr: Radha Adame PA PA ADDENDUM by Dr. Manuel Masters MD on 12/12/24 at 0406 . Reading Location: [place] [address] 12/12/24 0406 Date cc: Dr. Yury Orozco DO; GWYN Olivares * Signed PROCEDURE: CHEST PA AND LATERAL 12/11/2024 REASON FOR EXAM: LOVING TECHNIQUE: CHEST PA AND LATERAL COMPARISON: PA and lateral chest 08/03/2020. RAD/Chest PA and Lateral IMPRESSION: Degenerative changes of the spine and dextroscoliosis again noted. Lungs appear clear of acute disease. No pleural effusion or pneumothorax is noted. The cardiomediastinal silhouette is stable, without evidence of cardiomegaly. No acute process is seen. Reading Location: [place] [address] CC: Dr. Yury Orozco DO; GWYN Olivares Latex Dipper: Signed Normal [facility] Chloride assayOrdered By: Neida Adame on 12-11-2024 Chloride [Moles/Vol] 99 mmol/L 98-108 [facility] Eosinophil percentageOrdered By: Radha Adame on 12-11-2024 Eosinophils/100 WBC (Bld) 1.4 % 0-5 [facility] Erythrocyte distribution wid th ratioOrdered By: Radha Adame on 12-11-2024 Erythrocyte distribution width (RBC) [Ratio] 12.2 % 11.6-14.6 [facility] Erythrocyte distribution wid th standard deviationOrdered By: Radha Adame on 12-11-2024 Erythrocyte distribution width (RBC) [Ratio] 40.8 fl 35.1-43.9 [facility] Glomerular filtration rate ( GFR) estimation/1.73 sq m using serum, plasma, or whole bOrdered By: Radha Adame on 12-11-2024 GFR/1.73 sq M.predicted among non-blacks MDRD (S/P/Bld) [Vol rate/Area] 66 mL/min/{1.73_m2} >60 [facility] Comment on above: mL/min/1.73m2 CKD-EP I Creatinine Equation (2020) Hematocrit Auto (Bld) [Volum e fraction]Ordered By: Radha Adame on 12-11-2024 Hematocrit (Bld) [Volume fraction] 38.2 % Low 40-54 [facility] Hemoglobin measurementOrdere d By: Radha Adame on 12-11-2024 Hemoglobin (Bld) [Mass/Vol] 13.0 g/dL 13.0-16.5 [facility] Immature granulocytes/100 WB C Auto (Bld)Ordered By: Radha Adame on 12-11-2024 Immature granulocytes/100 WBC (Bld) 0.900 % 0.0-0.9 [facility] Comment on above: IG% - Immature Granu locytes (promyelocytes, myelocytes and metamyelocytes) > 1% indicates that a LEFT SHIFT is Present. MCV (mean corpuscular volume ) determinationOrdered By: Radha Adame on 12-11-2024 MCV (RBC) [Entitic vol] 91.6 fL 80-94 [facility] Mean corpuscular hemoglobin (MCH) determinationOrdered By: Radha Adame on 12-11-2024 MCH (RBC) [Entitic mass] 31.2 pg 27.0-32.0 [facility] Mean corpuscular hemoglobin concentration (MCHC) determinationOrdered By: Radha Adame on 12-11-2024 MCHC (RBC) [Mass/Vol] 34.0 g/dL 32-36 [facility] Mean platelet volume determi nationOrdered By: Radha Adame on 12-11-2024 Platelet mean volume (Bld) [Entitic vol] 10.4 fL 6.2-12.0 [facility] Monocyte percentageOrdered B y: Radha Adame on 12-11-2024 Monocytes/100 WBC (Bld) 10.1 % High 0-10 [facility] Neutrophil percentageOrdered By: Radha Adame on 12-11-2024 Neutrophils/100 WBC (Bld) 74.8 % High 47-70 [facility] Nucleated red blood cell per centageOrdered By: Radha Adame on 12-11-2024 Nucleated RBC/100 WBC (Bld) [Ratio] 0 % 0-5 [facility] Platelet countOrdered By: Neida Adame on 12-11-2024 Platelets (Bld) [#/Vol] 289 10*3/uL 150-450 [facility] Potassium measurement (mass/ volume)Ordered By: Radha Adame on 12-11-2024 Potassium (Unsp spec) [Mass/Vol] 3.9 mmol/L 3.3-5.1 [facility] Comment on above: Hemolysis present, R esults could be affected. RBC Auto (Bld) [#/Vol]Ordere d By: Radha Adame on 12-11-2024 RBC (Bld) [#/Vol] 4.17 10*6/uL Low 4.6-6.2 [facility] Serum creatinine measurement (mass/volume)Ordered By: Radha Adame on 12-11-2024 Creatinine [Mass/Vol] 1.19 mg/dL 0.70-1.20 [facility] Serum glucose measurement (m ass/volume)Ordered By: Radha Adame on 12-11-2024 Glucose [Mass/Vol] 141 mg/dL High 70-99 [facility] Serum or plasma calcium shea urement (mass/volume)Ordered By: Radha Adame on 12-11-2024 Calcium [Mass/Vol] 9.8 mg/dL 7.6-11.0 [facility] Serum or plasma urea nitroge n measurement (mass/volume)Ordered By: Radha Adame on 12-11-2024 Urea nitrogen [Mass/Vol] 25 mg/dL High 4-19 [facility] Sodium levelOrdered By: Kris Adame on 12-11-2024 Sodium [Moles/Vol] 139 mmol/L 133-145 [facility] White blood cell (WBC) count Ordered By: Radha Adame on 12-11-2024 WBC (Bld) [#/Vol] 8.6 10*3/uL 4.4-11.0 [facility] Cardiovascular stress test r eportOrdered By: Stone Williamson on 12-05-2024 Study report [facility] [address] [place] [address] MR#: [id number] Acct: [id number] Name: CHANO MACEDO Rep #: [id number] : 1955 69 From: Stone Williamson MD Primary Care: Dr. Yury Orozco DO Statu s: REG CLI Referring Dr: Yuyr Orozco DO Sex: M C Stress Test Report Exercise stress test. 69-year-old man with a history of dyspnea on exertion Stress protocol: Resting EKG demonstrates normal sinus rhythm with a rate of 73 bpm resting bloodpressure is 122/80 mmHg. The patient exercised according to the regular Jarrod protocol for a total duration of 6 minutes attaining a maximum heart rate of 129bpm which was 86% of maximum predicted heart rate; the maximum workload was 7 metabolic equivalents. At rest there were no ST or T wave changes noted to suggest ischemia and at peak exercise [address] depression were noted in leads II, III and aVF V5 and V6 associated with premature ventricular complexes especially during recovery. The patient did not experience any chest discomfort but shortness of breath was noted. The peak blood pressure was 174/80 mmHg. Rate-pressure product was 19,000. Conclusion: Exercise stress test with EKG changes suggestive of ischemia at a moderate workload. Mild functional aerobic impairment. Premature ventricular complexes noted during exercise. 12/05/241637 Date _ Stone Williamson MD CC: Dr. Yury Orozco DO ~ Date Dictated: 12/05/241634 Date Transcribed: 12/05/241634 Latex Dipper: CO Signed [facility] Work Phone: Stress Reporton 12-05-2024 Stress Report [facility] [address] [place] [address] MR#: [id number] Acct: [id number] Name: CHANO MACEDO Rep #: [id number] : 1955 69 From: Stone Williamson MD Primary Care: Dr. Yury Orozco DO Status: REG CLI Referring Dr: Yury Orozco DO Sex: M C Stress Test Report Exercise stress test. 69-year-old man with a history of dyspnea on exertion Stress protocol: Resting EKG demonstrates normal sinus rhythm with a rate of 73 bpm resting blood pressure is 122/80 mmHg. The patient exercised according to the regular Jarrod protocol for a total duration of 6 minutes attaining a maximum heart rate of 129 bpm which was 86% of maximum predicted heart rate; the maximum workload was 7 metabolic equivalents. At rest there were no ST or T wave changes noted to suggest ischemia and at peak exercise [address] depression were noted in leads II, III and aVF V5 and V6 associated with premature ventricular complexes especially during recovery. The patient did not experience any chest discomfort but shortness of breath was noted. The peak blood pressure was 174/80 mmHg. Rate-pressure product was 19,000. Conclusion: Exercise stress test with EKG changes suggestive of ischemia at a moderate workload. Mild functional aerobic impairment. Premature ventricular complexes noted during exercise. 12/05/241637 Date Stone Williamson MD CC: Dr. Yury Orozco, DO Date Dictated: 12/05/241634 Date Transcribed: 12/05/241634 Latex Dipper: CO Signed Normal [facility] CBC W/Diff, Automatedon 10-2 Absolute Lymph 0.84 X10 3/uL Normal 0.83-4.51 [facility] Comment on above: Performed By: #### L 100.0100, L502.0250, L500.4050, L501.9985, L500.4100 #### [facility] [address] [place], [place], [id number] Absolute Neut 4.4 X10 3/uL Normal 2.0-7.7 [facility] Comment on above: Performed By: #### L 100.0100, L502.0250, L500.4050, L501.9985, L500.4100 #### [facility] [address] [place], [address] Basophils/100 WBC (Bld) 0.7 % Normal 0-1 [facility] Comment on above: Performed By: #### L 100.0100, L502.0250, L500.4050, L501.9985, L500.4100 #### [facility] [address] [place], [address] Eosinophils/100 WBC (Bld) 2.2 % Normal 0-5 [facility] Comment on above: Performed By: #### L 100.0100, L502.0250, L500.4050, L501.9985, L500.4100 #### [facility] [address] [place], [address] Erythrocyte distribution width (RBC) [Ratio] 12.6 % Normal 11.6-14.6 [facility] Comment on above: Performed By: #### L 100.0100, L502.0250, L500.4050, L501.9985, L500.4100 #### [facility] [address] [place], [address] Hematocrit (Bld) [Volume fraction] 40.0 % Normal 40-54 [facility] Comment on above: Performed By: #### L 100.0100, L502.0250, L500.4050, L501.9985, L500.4100 #### [facility] [address] [place], [address] Hemoglobin (Bld) [Mass/Vol] 13.1 g/dL Normal 13.0-16.5 [facility] Comment on above: Performed By: #### L 100.0100, L502.0250, L500.4050, L501.9985, L500.4100 #### [facility] [address] [place], [address] IG% 0.800 Normal 0.0-0.9 [facility] Comment on above: Result Comment: IG% - Immature Granulocytes (promyelocytes, myelocytes and metamyelocytes) > 1% indicates that a LEFT SHIFT is Present. Performed By: #### L 100.0100, L502.0250, L500.4050, L501.9985, L500.4100 #### [facility] [address] [place], [address] Lymphocytes/100 WBC (Bld) 14.1 % Low 19-41 [facility] Comment on above: Performed By: #### L 100.0100, L502.0250, L500.4050, L501.9985, L500.4100 #### [facility] [address] [place], [address] MCH (RBC) [Entitic mass] 30.5 pg Normal 27.0-32.0 [facility] Comment on above: Performed By: #### L 100.0100, L502.0250, L500.4050, L501.9985, L500.4100 #### [facility] [address] [place], [address] MCHC (RBC) [Mass/Vol] 32.8 g/dL Normal 32-36 [facility] Comment on above: Performed By: #### L 100.0100, L502.0250, L500.4050, L501.9985, L500.4100 #### [facility] [address] [place], [address] MCV (RBC) [Entitic vol] 93.2 fL Normal 80-94 [facility] Comment on above: Performed By: #### L 100.0100, L502.0250, L500.4050, L501.9985, L500.4100 #### [facility] [address] [place], [address] Monocytes/100 WBC (Bld) 9.0 % Normal 0-10 [facility] Comment on above: Performed By: #### L 100.0100, L502.0250, L500.4050, L501.9985, L500.4100 #### [facility] [address] [place], [address] Neutrophils/100 WBC (Bld) 73.2 % High 47-70 [facility] Comment on above: Performed By: #### L 100.0100, L502.0250, L500.4050, L501.9985, L500.4100 #### [facility] [address] [place], [address] Nucleated RBC (Bld) [#/Vol] 0 10*3/uL Normal 0-5 [facility] Comment on above: Performed By: #### L 100.0100, L502.0250, L500.4050, L501.9985, L500.4100 #### [facility] [address] [place], [address] Platelet mean volume (Bld) [Entitic vol] 11.3 fL Normal 6.2-12.0 [facility] Comment on above: Performed By: #### L 100.0100, L502.0250, L500.4050, L501.9985, L500.4100 #### [facility] [address] [place], [address] Platelets (Bld) [#/Vol] 269 10*3/uL Normal 150-450 [facility] Comment on above: Performed By: #### L 100.0100, L502.0250, L500.4050, L501.9985, L500.4100 #### [facility] [address] [place], [address] RBC (Bld) [#/Vol] 4.29 10*6/uL Low 4.6-6.2 [facility] Comment on above: Performed By: #### L 100.0100, L502.0250, L500.4050, L501.9985, L500.4100 #### [facility] [address] [place], [address] RDW SD 43.2 fl Normal 35.1-43.9 [facility] Comment on above: Performed By: #### L 100.0100, L502.0250, L500.4050, L501.9985, L500.4100 #### [facility] [address] [place], [address] WBC (Bld) [#/Vol] 6.0 10*3/uL Normal 4.4-11.0 [facility] Comment on above: Performed By: #### L 100.0100, L502.0250, L500.4050, L501.9985, L500.4100 #### [facility] [address] [place], [address] Comprehensive Metabolic Prof [facility] 02-27-2024 Albumin [Mass/Vol] 4.0 g/dL Normal 3.2-5.0 [facility] Comment on above: Performed By: #### L 100.0100, L502.0250, L500.4050, L501.9985, L500.4100 #### [facility] [address] [place], [address] Albumin/Globulin [Mass ratio] 1.1 {ratio} Normal 0.9-2.4 [facility] Comment on above: Performed By: #### L 100.0100, L502.0250, L500.4050, L501.9985, L500.4100 #### [facility] [address] [place], [address] ALK P 68 U/L Normal 45-117 [facility] Comment on above: Performed By: #### L 100.0100, L502.0250, L500.4050, L501.9985, L500.4100 #### [facility] [address] [place], [address] ALT [Catalytic activity/Vol] 28 U/L Normal 16-61 [facility] Comment on above: Performed By: #### L 100.0100, L502.0250, L500.4050, L501.9985, L500.4100 #### [facility] [address] [place], [address] AST [Catalytic activity/Vol] 14 U/L Low 15-37 [facility] Comment on above: Performed By: #### L 100.0100, L502.0250, L500.4050, L501.9985, L500.4100 #### [facility] [address] [place], [address] Bilirubin [Mass/Vol] 0.40 mg/dL Normal 0.20-1.00 [facility] Comment on above: Result Comment: For patients on eltrombopag therapy, use of Dimension Smith TBIL is not recommended. Performed By: #### L 100.0100, L502.0250, L500.4050, L501.9985, L500.4100 #### [facility] [address] [place], [address] BUN/CRE 24.4 RATIO High 10-20 [facility] Comment on above: Performed By: #### L 100.0100, L502.0250, L500.4050, L501.9985, L500.4100 #### [facility] [address] [place], [address] CA,Total 10.0 mg/dL Normal 8.5-10.1 [facility] Comment on above: Performed By: #### L 100.0100, L502.0250, L500.4050, L501.9985, L500.4100 #### [facility] [address] [place], [address] Chloride [Moles/Vol] 105 mmol/L Normal 98-107 [facility] Comment on above: Performed By: #### L 100.0100, L502.0250, L500.4050, L501.9985, L500.4100 #### [facility] [address] [place], [address] CO2 [Moles/Vol] 29.0 mmol/L Normal 21.0-32.0 [facility] Comment on above: Performed By: #### L 100.0100, L502.0250, L500.4050, L501.9985, L500.4100 #### [facility] [address] [place], [address] Creatinine [Mass/Vol] 1.27 mg/dL Normal 0.70-1.30 [facility] Comment on above: Result Comment: The validity of the calculated GFR GFRAA in patients over 70 years has not been determined. Clinical correlation is essential. Performed By: #### L 100.0100, L502.0250, L500.4050, L501.9985, L500.4100 #### [facility] [address] [place], [address] EST GFR - AA 72 mL/min Normal >60 [facility] Comment on above: Result Comment: Afri can Tunisian GFR Calc Performed By: #### L 100.0100, L502.0250, L500.4050, L501.9985, L500.4100 #### [facility] [address] [place], [address] GAP 6 Normal 5-15 [facility] Comment on above: Performed By: #### L 100.0100, L502.0250, L500.4050, L501.9985, L500.4100 #### [facility] [address] [place], [address] GFR/1.73 sq M.predicted among non-blacks MDRD (S/P/Bld) [Vol rate/Area] 60 mL/min/{1.73_m2} Normal >60 [facility] Comment on above: Result Comment: Non- GFR Calc Performed By: #### L 100.0100, L502.0250, L500.4050, L501.9985, L500.4100 #### [facility] [address] [place], [address] Globulin (S) [Mass/Vol] 3.5 g/dL Normal 2.2-4.2 [facility] Comment on above: Performed By: #### L 100.0100, L502.0250, L500.4050, L501.9985, L500.4100 #### [facility] [address] [place], [address] Glucose [Mass/Vol] 158 mg/dL High 74-106 [facility] Comment on above: Result Comment: Fast ing Glucose result greater than or equal to 126 mg/dL suggests DIABETES MELLITUS per A.D.A. criteria. Performed By: #### L 100.0100, L502.0250, L500.4050, L501.9985, L500.4100 #### [facility] [address] [place], [address] Potassium [Moles/Vol] 4.6 mmol/L Normal 3.5-5.1 [facility] Comment on above: Performed By: #### L 100.0100, L502.0250, L500.4050, L501.9985, L500.4100 #### [facility] [address] [place], [address] Sodium [Moles/Vol] 141 mmol/L Normal 136-145 [facility] Comment on above: Performed By: #### L 100.0100, L502.0250, L500.4050, L501.9985, L500.4100 #### [facility] [address] [place], [address] T PROT 7.5 g/dL Normal 6.4-8.2 [facility] Comment on above: Performed By: #### L 100.0100, L502.0250, L500.4050, L501.9985, L500.4100 #### [facility] [address] [place], [address] Urea nitrogen [Mass/Vol] 31 mg/dL High 7-18 [facility] Comment on above: Performed By: #### L 100.0100, L502.0250, L500.4050, L501.9985, L500.4100 #### [facility] [address] [place], [address] Hemoglobin A1con 02-27-2024 HbA1c (Bld) [Mass fraction] 7.1 % High 3.8-5.6 [facility] Comment on above: Result Comment: Norm al < 5.7 % Prediabetic 5.7 - 6.4 % Diabetic >or= 6.5 % Please note range changes. Performed By: #### L 100.0100, L502.0250, L500.4050, L501.9985, L500.4100 #### [facility] [address] [place], [address] Lipid Profileon 02-27-2024 Cholesterol [Mass/Vol] 195 mg/dL Normal 200 [facility] Comment on above: Result Comment: <200 mg/dL Desirable 200-240 mg/dL Borderline >240 mg/dL High Risk Performed By: #### L 100.0100, L502.0250, L500.4050, L501.9985, L500.4100 #### [facility] [address] [place], [address] Cholesterol in HDL [Mass/Vol] 44 mg/dL Normal [facility] Comment on above: Result Comment: The drugs N-Acetylcysteine and Metamizole may falsely depress this assay. Reference Range HDL <40 mg/dL Low HDL Cholesterol HDL >or= 60 mg/dL High HDL Cholesterol Performed By: #### L 100.0100, L502.0250, L500.4050, L501.9985, L500.4100 #### [facility] [address] [place], [address] Cholesterol in LDL [Mass/Vol] 132 mg/dL High 0-130 [facility] Comment on above: Performed By: #### L 100.0100, L502.0250, L500.4050, L501.9985, L500.4100 #### [facility] [address] [place], [address] Cholesterol in VLDL [Mass/Vol] 19 mg/dL Normal 5-40 [facility] Comment on above: Performed By: #### L 100.0100, L502.0250, L500.4050, L501.9985, L500.4100 #### [facility] [address] [place], [address] Triglyceride [Mass/Vol] 97 mg/dL Normal [facility] Comment on above: Result Comment: The drugs N-Acetylcysteine and Metamizole may falsely depress this assay. Serum Triglycerides Reference Interval Normal <150 mg/dL Borderline high 150 - 199 mg/dL High 200 - 499 mg/dL Very High > or = 500 mg/dL Performed By: #### L 100.0100, L502.0250, L500.4050, L501.9985, L500.4100 #### [facility] [address] [place], [address] Microalb:Creat Ratio,Random URon 02-27-2024 Creatinine [Mass/Vol] 128.00 mg/dL Normal NO RANGE EST . [facility] Comment on above: Performed By: #### L 100.0100, L502.0250, L500.4050, L501.9985, L500.4100 #### [facility] [address] [place], [address] MALB:CRE 5.0 mg/g CRE Normal <30 mg/g CRE [facility] Comment on above: Performed By: #### L 100.0100, L502.0250, L500.4050, L501.9985, L500.4100 #### [facility] [address] [place], [address] MICROALBUMIN,UR 6.5 mg/L Normal NO RANGE EST. [facility] Comment on above: Performed By: #### L 100.0100, L502.0250, L500.4050, L501.9985, L500.4100 #### [facility] [address] [place], [address] Absolute lymphocyte countOrd ered By: Yury IslasPam on 02-23-2023 Lymphocytes Auto (Unsp spec) [#/Vol] 0.70 10*3/uL 0.83-4.51 [facility] Basophil percentageOrdered B y: Yury Pam on 02-23-2023 Basophils/100 WBC (Bld) 0.3 % 0-1 [facility] Bilirubin [Mass/Vol] 0.50 mg/dL 0.20-1.00 [facility] Comment on above: For patients on eltr ombopag therapy, use of Dimension Smith TBIL is not recommended. Chloride [Moles/Vol] 103 mmol/L 98-107 [facility] Cholesterol [Mass/Vol] 174 mg/dL <200 [facility] Comment on above: <200 mg/dL Desirable 200-240 mg/dL Borderline >240 mg/dL High Risk Eosinophils/100 WBC (Bld) 2.5 % 0-5 [facility] Glucose [Mass/Vol] 141 mg/dL 74-106 [facility] Comment on above: Fasting Glucose resu lt greater than or equal to 126 mg/dL suggests DIABETES MELLITUS per A.D.A. criteria. Neutrophils (Bld) [#/Vol] 4.5 10*3/uL 2.0-7.7 [facility] Neutrophils/100 WBC (Bld) 75.0 % 47-70 [facility] Potassium [Moles/Vol] 3.5 mmol/L 3.5-5.1 [facility] Protein [Mass/Vol] 7.5 g/dL 6.4-8.2 [facility] Sodium [Moles/Vol] 139 mmol/L 136-145 [facility] Triglyceride [Mass/Vol] 133 mg/dL <199 [facility] Comment on above: The drugs N-Acetylcy steine and Metamizole may falsely depress this assay.Serum Triglycerides Reference Interval Normal <150 mg/dL Borderline high 150 - 199 mg/dL High 200 - 499 mg/dL Very High > or = 500 mg/dL WBC (Bld) [#/Vol] 6.0 10*3/uL 4.4-11.0 [facility] Blood erythrocytes count (nu mber/volume)Ordered By: Yury Orozco on 02-23-2023 RBC (Bld) [#/Vol] 4.37 10*6/uL 4.6-6.2 [facility] Blood hemoglobin measurement (mass/volume)Ordered By: Yury Orozco on 02-23-2023 Hemoglobin (Bld) [Mass/Vol] 13.3 g/dL 13.0-16.5 [facility] Blood lymphocytes/100 leukoc ytesOrdered By: Yury Orozco on 02-23-2023 Lymphocytes/100 WBC (Bld) 11.7 % 19-41 [facility] Blood monocytes/100 leukocyt esOrdered By: Yury Orozco on 02-23-2023 Monocytes/100 WBC (Bld) 10.0 % 0-10 [facility] Blood platelet mean volumeOr dered By: Yury Orozco on 02-23-2023 Platelet mean volume (Bld) [Entitic vol] 10.8 fL 6.2-12.0 [facility] Determination of erythrocyte mean corpuscular volume (MCV)Ordered By: Yury Orozco on 02-23-2023 MCV (RBC) [Entitic vol] 92.4 fL 80-94 [facility] Hematocrit Auto (Bld) [Volum e fraction]Ordered By: Yury Orozco on 02-23-2023 Hematocrit (Bld) [Volume fraction] 40.4 % 40-54 [facility] - Chemistry and C hemistry - challengeOrdered By: Yury Orozco on 02-23-2023 ALP [Catalytic activity/Vol] 72 U/L 45-117 [facility] ALT [Catalytic activity/Vol] 36 U/L 16-61 [facility] CO2 [Moles/Vol] 30.0 mmol/L 21.0-32.0 [facility] Cobalamin (Vitamin B12) [Mass/Vol] 445 pg/mL 211-911 [facility] Free T4 [Mass/Vol] 1.09 ng/dL 0.76-1.46 [facility] Globulin (S) [Mass/Vol] 3.7 g/dL 2.2-4.2 [facility] Urea nitrogen/Creatinine [Mass ratio] 15.7 mg/mg 10-20 [facility] - Hematology and Cell countsOrdered By: Yury Orozco on 02-23-2023 Erythrocyte distribution width (RBC) [Entitic vol] 41.1 fL 35.1-43.9 [facility] Erythrocyte distribution width (RBC) [Ratio] 12.2 % 11.6-14.6 [facility] Immature granulocytes/100 WBC (Bld) 0.500 % 0.0-0.9 [facility] Comment on above: IG% - Immature Granu locytes (promyelocytes, myelocytes and metamyelocytes) > 1% indicates that a LEFT SHIFT is Present. MCH (RBC) [Entitic mass] 30.4 pg 27.0-32.0 [facility] Nucleated RBC/100 WBC (Bld) [Ratio] 0 % 0-5 [facility] MCHC Auto (RBC) [Mass/Vol]Or dered By: Yury Orozco on 02-23-2023 MCHC (RBC) [Mass/Vol] 32.9 g/dL 32-36 [facility] No Panel InformationOrdered By: Yury Orozco on 02-23-2023 Estimated GFR (MDRD) Amer 77 mL/min >60 [facility] Comment on above: GFR Calc Estimated GFR (MDRD) Non-Af Amer 63 mL/min >60 [facility] Comment on above: Non- GFR Calc Prostate Specific Antigen Screen 2.98 ng/mL 0.00-4.00 [facility] Comment on above: This test was perfor med using the TPSA assay method [facility]. Values obtained with differentassay methods cannot be used interchangably.When changing PSA assays in the course of monitoring apatient, additional sequential testing should be carriedout to confirm baseline values. Thyroid Stimulating Hormone (TSH) 1.17 uIU/mL 0.358-3.74 [facility] Urine Microalbumin/Creatinine Ratio 3.8 mg/g CRE <30 [facility] Platelets bldOrdered By: Jaylin Orozco on 02-23-2023 Platelets (Bld) [#/Vol] 268 10*3/uL 150-450 [facility] Serum or plasma albumin shea urement (mass/volume)Ordered By: Yury Orozco on 02-23-2023 Albumin [Mass/Vol] 3.8 g/dL 3.2-5.0 [facility] Serum or plasma albumin/glob ulin mass ratioOrdered By: Yury Orozco on 02-23-2023 Albumin/Globulin [Mass ratio] 1.0 {ratio} 0.9-2.4 [facility] Serum or plasma calcium shea urement (mass/volume)Ordered By: Yury Orozco on 02-23-2023 Calcium [Mass/Vol] 9.4 mg/dL 8.5-10.1 [facility] Serum or plasma cholesterol in HDL measurement (mass/volume)Ordered By: Yury Orozco on 02-23-2023 Cholesterol in HDL [Mass/Vol] 37 mg/dL >40 [facility] Comment on above: The drugs N-Acetylcy steine and Metamizole may falsely depress this assay. Reference Range HDL <40 mg/dL Low HDL Cholesterol HDL >or= 60 mg/dL High HDL Cholesterol Serum or plasma cholesterol in VLDL measurement (mass/volume)Ordered By: Yury Orozco on 02-23-2023 Cholesterol in VLDL [Mass/Vol] 27 mg/dL 5-40 [facility] Serum or plasma creatinine m easurement (mass/volume)Ordered By: Yury Orozco on 02-23-2023 Creatinine [Mass/Vol] 1.21 mg/dL 0.70-1.30 [facility] Comment on above: The validity of the calculated GFR & GFRAA in patients over 70 years has not been determined. Clinical correlation is essential. Serum or plasma low density lipoprotein (LDL) cholesterol measurement (mass/volume)Ordered By: Yury Orozco on 02-23-2023 Cholesterol in LDL [Mass/Vol] 110 mg/dL 0-130 [facility] Serum or plasma urea nitroge n measurement (mass/volume)Ordered By: Yury Orozco on 02-23-2023 Urea nitrogen [Mass/Vol] 19 mg/dL 7-18 [facility] Thin prep Papanicolaou smear with manual screeningOrdered By: Yury Orozco on 02-23-2023 Thin prep Papanicolaou smear with manual screening 17 U/L 15-37 [facility] Thin prep Papanicolaou smear with manual screening 6 5-15 [facility] Thin prep Papanicolaou smear with manual screening 9.7 mg/L NO RANGE EST. [facility] Urine creatinine measurement (mass/volume)Ordered By: Yury Orozco on 02-23-2023 Creatinine (U) [Mass/Vol] 253.00 mg/dL NO RANGE EST. [facility] Whole blood hemoglobin A1c/t otal hemoglobin ratio (mass fraction)Ordered By: Yury Orozco on 02-23-2023 HbA1c (Bld) [Mass fraction] 6.7 % 3.8-5.6 [facility] Comment on above: Normal < 5.7 % Predi abetic 5.7 - 6.4 % Diabetic >or= 6.5 % Please note range changes. Absolute lymphocyte counton 02-15-2022 Lymphocytes Auto (Unsp spec) [#/Vol] 0.57 10*3/uL 0.83-4.51 [facility] Work Phone: Basophil percentageon 2021 Basophils/100 WBC (Bld) 1.0 % 0-1 [facility] Work Phone: Bilirubin [Mass/Vol] 0.60 mg/dL 0.20-1.00 [facility] Work Phone: Comment on above: For patients on eltr ombopag therapy, use of Dimension Smith TBIL is not recommended. Chloride [Moles/Vol] 103 mmol/L 98-107 [facility] Work Phone: Cholesterol [Mass/Vol] 198 mg/dL <200 [facility] Work Phone: Comment on above: <200 mg/dL Desirable 200-240 mg/dL Borderline >240 mg/dL High Risk Eosinophils/100 WBC (Bld) 3.8 % 0-5 [facility] Work Phone: Glucose [Mass/Vol] 152 mg/dL 74-106 [facility] Work Phone: Comment on above: Fasting Glucose resu lt greater than or equal to 126 mg/dL suggests DIABETES MELLITUS per A.D.A. criteria. Neutrophils (Bld) [#/Vol] 2.9 10*3/uL 2.0-7.7 [facility] Work Phone: Neutrophils/100 WBC (Bld) 69.9 % 47-70 [facility] Work Phone: [phone] Potassium [Moles/Vol] 4.3 mmol/L 3.5-5.1 [facility] Work Phone: [phone] Protein [Mass/Vol] 7.6 g/dL 6.4-8.2 [facility] Work Phone: [phone] Sodium [Moles/Vol] 139 mmol/L 136-145 [facility] Work Phone: [phone] Triglyceride [Mass/Vol] 119 mg/dL <199 [facility] Work Phone: Comment on above: The drugs N-Acetylcy steine and Metamizole may falsely depress this assay.Serum Triglycerides Reference Interval Normal <150 mg/dL Borderline high 150 - 199 mg/dL High 200 - 499 mg/dL Very High > or = 500 mg/dL WBC (Bld) [#/Vol] 4.2 10*3/uL 4.4-11.0 [facility] Work Phone: Blood erythrocytes count (nu mber/volume)on 02-15-2022 RBC (Bld) [#/Vol] 4.46 10*6/uL 4.6-6.2 [facility] Work Phone: [phone] Blood hemoglobin measurement (mass/volume)on 02-15-2022 Hemoglobin (Bld) [Mass/Vol] 13.6 g/dL 13.0-16.5 [facility] Work Phone: Blood lymphocytes/100 leukoc yteson 02-15-2022 Lymphocytes/100 WBC (Bld) 13.6 % 19-41 [facility] Work Phone: Blood manual differential co mment interpretation (narrative result)on 02-15-2022 Manual differential comment Toby (Bld) [Interp] See comment [facility] Work Phone: Comment on above: LYMPHOPENIA NOTED Blood monocytes/100 leukocyt eson 02-15-2022 Monocytes/100 WBC (Bld) 11.2 % 0-10 [facility] Work Phone: Blood platelet adequacy dete ction by light microscopyon 02-15-2022 Platelets LM Ql (Bld) ADEQUATE ADEQ [facility] Work Phone: [phone] Blood platelet mean volumeon 02-15-2022 Platelet mean volume (Bld) [Entitic vol] 11.1 fL 6.2-12.0 [facility] Work Phone: Determination of erythrocyte mean corpuscular volume (MCV)on 02-15-2022 MCV (RBC) [Entitic vol] 92.8 fL 80-94 [facility] Work Phone: Hematocrit Auto (Bld) [Volum e fraction]on 02-15-2022 Hematocrit (Bld) [Volume fraction] 41.4 % 40-54 [facility] Work Phone: Laboratory - Chemistry and C hemistry - challengeon 02-15-2022 ALP [Catalytic activity/Vol] 60 U/L 45-117 [facility] Work Phone: ALT [Catalytic activity/Vol] 36 U/L 16-61 [facility] Work Phone: [phone] CO2 [Moles/Vol] 28.0 mmol/L 21.0-32.0 [facility] Work Phone: Globulin (S) [Mass/Vol] 3.6 g/dL 2.2-4.2 [facility] Work Phone: [phone] Urea nitrogen/Creatinine [Mass ratio] 15.2 mg/mg 10-20 [facility] Work Phone: [phone] Laboratory - Hematology and Cell countson 02-15-2022 Erythrocyte distribution width (RBC) [Entitic vol] 41.3 fL 35.1-43.9 [facility] Work Phone: [phone] Erythrocyte distribution width (RBC) [Ratio] 12.1 % 11.6-14.6 [facility] Work Phone: [phone] Immature granulocytes/100 WBC (Bld) 0.500 % 0.0-0.9 [facility] Work Phone: [phone] Comment on above: IG% - Immature Granu locytes (promyelocytes, myelocytes and metamyelocytes) > 1% indicates that a LEFT SHIFT is Present. MCH (RBC) [Entitic mass] 30.5 pg 27.0-32.0 [facility] Work Phone: [phone] Nucleated RBC/100 WBC (Bld) [Ratio] 0 % 0-5 [facility] Work Phone: [phone] MCHC Auto (RBC) [Mass/Vol]on 02-15-2022 MCHC (RBC) [Mass/Vol] 32.9 g/dL 32-36 [facility] Work Phone: [phone] No Panel Informationon 02-15 Estimated GFR (MDRD) Amer 84 mL/min >60 [facility] Work Phone: [phone] Comment on above: GFR Calc Estimated GFR (MDRD) Non-Af Amer 69 mL/min >60 [facility] Work Phone: [phone] Comment on above: Non- GFR Calc Prostate Specific Antigen Screen 3.19 ng/mL 0.00-4.00 [facility] Work Phone: [phone] Comment on above: This test was perfor med using the TPSA assay method for the[employer] chemistry system. Values obtained with differentassay methods cannot be used interchangably.When changing PSA assays in the course of monitoring apatient, additional sequential testing should be carriedout to confirm baseline values. Urine Microalbumin/Creatinine Ratio 3.6 mg/g CRE <30 [facility] Work Phone: Platelets bldon 02-15-2022 Platelets (Bld) [#/Vol] 251 10*3/uL 150-450 [facility] Work Phone: RBC morphologyon 02-15-2022 RBC morphology finding Nom (Bld) NORM C+C NORMAL NORM C&C [facility] Work Phone: [phone] Review by pathologiston 02-05 Pathologist review Toby (Unsp spec) [Interp] Reviewed [facility] Work Phone: Comment on above: Previous reported re sult: Karime petit Edited by: VIJAY on 02/16/22:1339 AMENDED REPORT 02/16/22 4055 PATH REV previously reported as: Karime petit Serum or plasma albumin shea urement (mass/volume)on 02-15-2022 Albumin [Mass/Vol] 4.0 g/dL 3.2-5.0 [facility] Work Phone: [phone] Serum or plasma albumin/glob ulin mass ratioon 02-15-2022 Albumin/Globulin [Mass ratio] 1.1 {ratio} 0.9-2.4 [facility] Work Phone: [phone] Serum or plasma calcium shea urement (mass/volume)on 02-15-2022 Calcium [Mass/Vol] 9.7 mg/dL 8.5-10.1 [facility] Work Phone: Serum or plasma cholesterol in HDL measurement (mass/volume)on 02-15-2022 Cholesterol in HDL [Mass/Vol] 40 mg/dL >40 [facility] Work Phone: [phone] Comment on above: The drugs N-Acetylcy steine and Metamizole may falsely depress this assay. Reference Range HDL <40 mg/dL Low HDL Cholesterol HDL >or= 60 mg/dL High HDL Cholesterol Serum or plasma cholesterol in VLDL measurement (mass/volume)on 02-15-2022 Cholesterol in VLDL [Mass/Vol] 24 mg/dL 5-40 [facility] Work Phone: Serum or plasma creatinine m easurement (mass/volume)on 02-15-2022 Creatinine [Mass/Vol] 1.12 mg/dL 0.70-1.30 [facility] Work Phone: Comment on above: The validity of the calculated GFR & GFRAA in patients over 70 years has not been determined. Clinical correlation is essential. Serum or plasma low density lipoprotein (LDL) cholesterol measurement (mass/volume)on 02-15-2022 Cholesterol in LDL [Mass/Vol] 134 mg/dL 0-130 [facility] Work Phone: Serum or plasma urea nitroge n measurement (mass/volume)on 02-15-2022 Urea nitrogen [Mass/Vol] 17 mg/dL 7-18 [facility] Work Phone: Thin prep Papanicolaou smear with manual screeningon 02-15-2022 Thin prep Papanicolaou smear with manual screening 16 U/L 15-37 [facility] Work Phone: Thin prep Papanicolaou smear with manual screening 8 5-15 [facility] Work Phone: Thin prep Papanicolaou smear with manual screening 9.4 mg/L NO RANGE EST. [facility] Work Phone: Urine creatinine measurement (mass/volume)on 02-15-2022 Creatinine (U) [Mass/Vol] 257.00 mg/dL NO RANGE EST. [facility] Work Phone: Whole blood hemoglobin A1c/t otal hemoglobin ratio (mass fraction)on 02-15-2022 HbA1c (Bld) [Mass fraction] 6.6 % 3.8-5.6 [facility] Work Phone: Comment on above: Normal < 5.7 % Predi abetic 5.7 - 6.4 % Diabetic >or= 6.5 % Please note range changes. Vital Signs Date Time Vital Sign Value Performing Clinician Celio peguero 12-11-2024 08:01-0400 Body height 193.[address] Yury Orozco DO Work Phone: [facility] 12-11-2024 08:01-0400 Body mass index (BMI) [Ratio] 24.5 kg/m2 Dr. Yury Orozco DO Work Phone: [facility] 12-11-2024 08:01-0400 Body weight 91.[address] Yury Orozco DO Work Phone: [facility] 12-11-2024 08:01-0400 Diastolic blood pressure 72 mm[Hg] Dr. Yury Orozco DO Work Phone: [facility] 12-11-2024 08:01-0400 Heart rate 77 /min Dr. Yury Orozco DO Work Phone: [facility] 12-11-2024 08:01-0400 Respiratory rate 18 /min Dr. Yury Orozco DO Work Phone: [facility] 12-11-2024 08:01-0400 Systolic blood pressure 127 mm[Hg] Dr. Yury Orozco DO Work Phone: [facility] Encounters Encounter Date Encounter Type Care Provider Facility Start: 02-24-2025 ambulatory Yury Orozco Facility: [facility] Start: 12-25-2024 ambulatory Stone Williamson Facility:[facility] Start: 12-11-2024 End: 12-11-[address] Yury Orozco DO Work Phone: -Radiology [facility] Start: 12-11-2024 End: 12-11-2024 Patient encounter procedure Radha PASCAL -Radiology [facility] Work Phone: Start: 12-11-2024 End: 12-11-2024 Patient encounter procedure Radha PASCAL -[facility] Work Phone: Start: 12-11-2024 End: 12-11-[address] Yury Orozco DO Work Phone: -[facility] Start: 12-11-2024 End: 12-11-2024 ambulatory Radha PASCAL Facility:[facility] Start: 12-05-2024 ambulatory Stone Williamson Facility:[facility] Start: 12-05-2024 Non-patient / Non-visit Dr. Tabitha WHEAT -[facility] Start: 12-05-2024 End: 12-05-[address] Yury Orozco DO Work Phone: -Cardiovascular Services Start: 12-05-2024 End: 12-05-[address] Yury Orozco DO -Cardiovascular Services Work Phone: Start: 12-05-2024 End: 12-05-2024 ambulatory Yury Orozco Facility:[facility] Start: 02-27-2024 End: 02-27-2024 ambulatory Yury Pam Facility:[facility] Start: 02-23-2023 End: 02-23-2023 ambulatory [facility] Work Phone: Start: 02-23-2023 End: 02-23-2023 [facility] Start: 02-15-2022 End: 02-15-2022 ambulatory [facility] Work Phone: Start: 02-15-2022 End: 02-15-2022 [facility] Procedures Date Procedure Procedure Detail Performing Clinician Start: 12-11-2024 X-ray of chest, PA a nd lateral views Dr. Yury Orozco DO Work Phone: Plan of Treatment Date Care Activity Detail Author Basic metabolic 2008 panel with ionized calcium - Serum or Plasma [facility] CBC W Auto Differential panel - Blood [facility] US Carotid arteries [facility] XR Chest PA and Lateral [facility] Payers Date Payer Category Payer Medicare [id number] 2024 Self-pay [id number] 2024 Unknown [id number] 2015 Unknown [id number] Unknown [id number] 2.16.8 [id number] Unknown [id number] 2.16.8 [id number] Unknown [id number] 2.16.8 [id number] Unknown [id number] 2.16.8 [id number] Unknown [id number] 2.16.8 [id number] Unknown [id number] 2.16.8 [id number] Unknown [id number] 2.16.8 [id number] Social History Date Type Detail Facility Start: 11-15-2020 Tobacco smoking stat [facility] Unknown if ever smoked [facility] Start: 1955 Sex Assigned At Male W [facility] Start: [facility]15[facility] Radiology Diagnostic study note 12-12-2024 Note Date & Type Note Facility 12-12-2024 Radiology Diagnostic study note [facility] Imaging Services [address], [place] [address] Chest PA and Lateral MR#: [id number] Acct: [id number] Name: CHANO MACEDO Rep #: [id number] : 1955 M 69 From: Nahun Palafox MD PCP: Dr. Yury Orozco, DO Status: REG CLI Study:Chest PA and Lateral Date of Exam: 12/11/24 Exam# [id number] Ordering Dr: Radha Santiago PA ADDENDUM by Dr. Manuel Masters MD on 12/12/24 at 0406 . Reading Location: [facility] 12/12/24 0406 Date cc: Dr. Yury Orozco DO; GWYN Olivares ~* Signed PROCEDURE: CHEST PA AND LATERAL 12/11/2024 REASON FOR EXAM: LOVING TECHNIQUE: CHEST PA AND LATERAL COMPARISON: PA and lateral chest 08/03/2020. RAD/Chest PA and Lateral IMPRESSION: Degenerative changes of the spine and dextroscoliosis again noted. Lungs appear clear of acute disease. No pleural effusion or pneumothorax is noted. The cardiomediastinal silhouette is stable, without evidence of cardiomegaly. No acute process is seen. Reading Location: [facility] CC: Dr. Yury Orozco DO; GWYN Olivares ~ Latex Dipper: Signed [facility] Evaluation note 12-11-2024 Note Date & Type Note Facility 12-11-2024 Evaluation note Diagnosis Onset Date Resolution Abnormal stress test acute 2024 12:51pm LOVING (dyspnea on exertion) acute December 11, 2024 12:51pm Hyperlipidemia acute December 12:51pm Left carotid bruit acute December 11, 2024 12:51pm Hypertension chronic December 11, 2024 12:51pm [facility] Work Phone: Evaluation note Note Date & Type Note Facility Evaluation note No assessment information availa ble [facility] Work Phone: Evaluation note Note Date & Type Note Facility Evaluation note Diagnosis Onset Date Resolution Abnormal stress test acute 2024 12:51pm LOVING (dyspnea on exertion) acute December 11, 2024 12:51pm Hyperlipidemia acute December 12:51pm Left carotid bruit acute December 11, 2024 12:51pm Hypertension chronic December 11, 2024 12:51pm [facility] Work Phone: Reason for referral (narrative) Note Date & Type Note Facility Reason for referral (narrative) No reason for referral information available [facility] Work Phone: Advance Directives No Advanced Directives Records Found Advance Directive Response Recorded Date/ Time Living Will Yes November 15, 2020 6:14am Power of Reel Tender Yes November 15 6:14am Chief Complaint and Reason for Visit Chief Complaint Admit Date DYSPNEA December 05, 2024 9:52 am DYSPNEA December 05, 2024 4:35 pm POS. STRESS (PAM) December 11, 2024 12:51pm Reason for Visit Admit Date Abnormal stress test December 11, 2024 12 :51pm LOVING (dyspnea on exertion) December 11 12:51pm Hyperlipidemia December 11, 2024 12: 51pm Left carotid bruit December 11, 2024 12: 51pm Hypertension December 11, 2024 12: 51pm Chief Complaint Admit Date DYSPNEA December 05, 2024 9:52 am DYSPNEA December 05, 2024 4:35 pm POS. STRESS (PAM) December 11, 2024 12:51pm EORDERS December 11, 2024 2:0 4pm Family History No Family History Records Found Relationship Condition Age at Onset Recorded Date/T marilee father Coronary artery disease Unknown Malignant neoplasm Unknown mother Diabetes mellitus Unknown brother Coronary artery disease Unknown Summary Purpose Additional Source Comments Goals (unrecognized section and content) Goals may be documented in a n alternate sectionGoals may be documented in an alternate sectionGoals may be documented in an alternate sectionGoals may be documented in an alternate sectionGoals may be documented in an alternate section Care Teams (unrecognized sec tion and content) Team Status: Active Member Role Status Dates Dr. Yury Orozco DO Family Provider Active Dr. Yury Orozco DO Primary Care Provider Active Team Status: Inactive Member Role Status Dates Dr. Yury Orozco DO Primary Care Provider, Attendin g Provider Active Team Status: Active Member Role/Relationship Status Dates Dr. Yury Orozco DO Primary Care Provider Active Team Status: Active Member Role/Relationship Status Dates Dr. Yury Orozco DO Primary Care Provider Active Start: December 05, 2024 Dr. Yury Orozco DO Attending Provider Active Start: December 05, 2024 Dr. Yury Orozco DO Referring Provider Active Start: December 05, 2024 Team Status: Active Member Role/Relationship Status Dates Dr. Yury Orozco DO Primary Care Provider Active Start: December 05, 2024 Dr. Yury Orozco DO Referring Provider Active Start: December 05, 2024 Dr. Yury Orozco DO Other Provider Active Sta rt: December 05, 2024 Dr. Stone Williamson MD Attending Provider Active S tart: December 05, 2024 Team Status: Inactive Member Role/Relationship Status Dates Dr. Yury Orozco DO Primary Care Provider Active Start: December 11, 2024 End: December 11, 2024 Dr. Yury Orozco DO Referring Provider Active Start: December 11, 2024 End: December 11, 2024 GWYN Preciado Attending Provider Active Start: December 11, 2024 End: December 11, 2024 Team Status: Inactive Member Role/Relationship Status Dates Dr. Yury Orozco DO Primary Care Provider Active Start: December 05, 2024 End: December 05, 2024 Dr. Yury Orozco DO Attending Provider Active Start: December 05, 2024 End: December 05, 2024 Dr. Yury Orozco DO Referring Provider Active Start: December 05, 2024 End: December 05, 2024 Team Status: Active Member Role/Relationship Status Dates Dr. Yury Orozco DO Primary Care Provider Active Start: December 11, 2024 GWYN Preciado Attending Provider Active Start: December 11, 2024 GWYN Preciado Referring Provider Active Start: December 11, 2024 Team Status: Inactive Member Role/Relationship Status Dates Dr. Yury Orozco DO Primary Care Provider Active Start: December 11, 2024 End: December 11, 2024 GWYN Preciado Attending Provider Active Start: December 11, 2024 End: December 11, 2024 GWYN Preciado Referring Provider Active Start: December 11, 2024 End: December 11, 2024 (unrecognized sect ion and content) No Status Records Found INFORMATION SOURCE (unrecogn ized section and content) DATE CREATED AUTHOR 12/24/2024 [facility] FOR RECORDS PERTAINING TO PATIENTS WHO ARE OR HAVE BEEN ENROLLED IN A CHEMICAL DEPENDENCY/SUBSTANCEABUSE PROGRAM, SOME INFORMATION MAY BE OMITTED. This clinical summary was aggregated from multiple sources. Caution should be exercised in using it in the provision of clinical care. This summary normalizes information from multiple sources, and as a consequence, information in this document may materially change the coding, format and clinical context of patient data. In addition, data may be omitted in some cases. CLINICAL DECISIONS SHOULD BE BASED ON THE PRIMARY CLINICAL RECORDS. [facility] [employer] [facility]. provides no warranty or guarantee of the accuracy or completeness of information in this document.
--- NOTE | 2024-12-25 08:30 | CL.D_ITS ---
Patient Name: CHANO MACEDO Study Date: 12/25/2024 Performing: Stone Williamson MD Ht: 76 inches 193.04 cm : 1955 Wt: 202.01 lbs 91.63 kg Age: 69 Gender: male BSA: 2.22 PROCEDURE(S) PERFORMED DC01-(84969)LHC/COR/LV CLINICAL PROFILE AND INDICATIONS Indications: Suspected CAD Heart Failure: None Stress/Imaging Standard Exercise Stress Test: Yes Result: Positive Intermediate Risk CAD Presentations: Stable angina. 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 RECOMMENDATIONS Will consider aggressive medical therapy versus surgical opinion. DESCRIPTION OF PROCEDURE The patient arrived to the procedure lab. The risks and benefits of the procedure as well as a full description of our services here and current unavailability of surgical backup were fully explained to the patient and/or their significant other prior to the catheterization. The Timeout was completed, verifying the correct patient and procedure. The patient's procedural site was prepped and draped in the usual fashion. Local anesthetic was given subcutaneously to right radial region with Lidocaine 2%. Using a modified Seldinger technique, arterial access was obtained via the right radial artery, a 6Fr sheath was inserted. Left Coronary Artery selective angiography was performed in multiple views using a 5 Fr. 4.0 Ruby catheter. Right Coronary Artery selective angiography was then performed in multiple views using a 5 Fr. 4.0 Ruby catheter. Left Ventriculography was performed in MASTERS projection using a 5 Fr. Pigtail catheter. LV to AO pullback pressures were then recorded.The arterial sheath was pulled and a TR Band was applied for hemostasis. 10cc air CORONARY ANGIOGRAPHY DOMINANCE: Co- Dominant LEFT HEART ASSESSMENT Left Ventricular Ejection Fraction: by LV Gram 45 % Anterior Hypokinesis - Mild. Lateral Hypokinesis - Moderate Depressed Left Ventricular systolic function LEFT MAIN: Angiographically normal LEFT ANTERIOR DESCENDING ARTERY: This vessel is calcified in the proximal and mid segment with moderate disease of approximately 70% involving long segment. The second diagonal ostium also has a 70% stenosis. The rest of the vessel appears to be mildly diseased only. Podd-ha-omuke collaterals are noted. CIRCUMFLEX ARTERY: Mild calcification, Codominant vessel. The proximal circumflex artery has a 70 to 80% stenotic lesion in the first obtuse marginal branch is subtotally occluded in the second obtuse marginal branch is calcified with a long 80% occlusion. Distal circumflex has mild disease and [id number] collaterals are noted. RIGHT CORONARY ARTERY: Codominant vessel and totally occluded in the midsegment. Distal collateralization is noted. COLLATERAL FLOW: Collateral flow from Left to Right COMPLICATIONS No Complications PROCEDURE MEDICATIONS Fentanyl 50 mcg IV Versed 1 mg IV Versed 1 mg IV Oxygen: 2 L/min via nasal cannula Heparin given IA 12/25/2024 08:01:32 Verapamil 2.5mg, Ntg 100mcgs, 3000 units of Heparin given IA 12/25/2024 08:01:32 SUMMARY OF HEMODYNAMIC DATA Time AIR REST ECG 07:52:18 Art 132/63 (84) 08:03:50 AO 132/69 (98) SA 08:07:00 LV 124/4, 12 08:15:07 LV 121/3, 9 08:15:14 Signed By Stone Williamson MD On 12/25/2024 08:30:06 Stone Williamson MD
== END 2024-12-25 10:00 | disposition home or self-care (01) ==
PROVIDERS: PCP Family Medicine; Referring Provider Internal Medicine Cardiovascular Disease; Visit Provider Internal Medicine Cardiovascular Disease
DX: I25.10 Atherosclerotic heart disease of native coronary artery without angina pectoris (principal); E11.9 Type 2 diabetes mellitus without complications; I10 Essential (primary) hypertension; R94.39 Abnormal result of other cardiovascular function study; R09.89 Other specified symptoms and signs involving the circulatory and respiratory systems; E78.5 Hyperlipidemia, unspecified; K21.9 Gastro-esophageal reflux disease without esophagitis; Z79.82 Long term (current) use of aspirin; Z79.84 Long term (current) use of oral hypoglycemic drugs; Z79.85 Long-term (current) use of injectable non-insulin antidiabetic drugs; Z79.899 Other long term (current) drug therapy
CPT/HCPCS: 93458; 99152; 99153; C1769; Q9967; C1894

== ENCOUNTER → 2025-01-16 | Outpatient (CLI) | payer MEDICARE, OTHER, SELFPAY ==
--- NOTE | 2025-01-16 12:50 | ECHOD_ITS ---
Reason For Study Reason For Study: ASHD Procedure This was a 2D Doppler, Color Flow transthoracic echocardiogram. Exam performed in department. Left Ventricle Normal LV size. Mid cavitary false tendon noted. Left ventricular systolic function is normal. The left ventricular ejection fraction is 55 %. Stage 1 diastolic dysfunction. No regional wall motion abnormalities noted. Right Ventricle Normal RV size. Normal systolic function. Atria Normal left atrium. Normal right atrium. Mitral Valve Normal mitral valve. Tricuspid Valve Normal tricuspid valve. Mild tricuspid valve insufficiency. Aortic Valve Normal aortic valve. Trisinus/trileaflet aortic valve. Pulmonic Valve Normal pulmonic valve. Great Vessels Normal aortic root. The pulmonary artery is normal size. Normal inferior vena cava. Pericardium/Pleural No pericardial effusion. MMode/2D Measurements & Calculations LVIDd: 4.8 cm IVSd: 1.2 cm Ao root diam: 3.5 cm LVIDs: 3.6 cm LVPWd: 1.1 cm RVDd: 3.0 cm FS: 25.7 % LAV(MOD-bp): 41.4 ml LVAd ap4: 27.8 cm2 SV(MOD-sp4): 29.2 ml LAV(MOD-bp) Indexed: 18.9 ml/m2 LVLd ap4: 8.9 cm SI(MOD-sp4): 13.3 ml/m2 LAV(MOD-sp2): 30.0 ml EDV(MOD-sp4): 74.0 ml LAV(MOD-sp4): 47.5 ml EDV(sp4-el): 74.5 ml LVAs ap4: 19.9 cm2 LVLs ap4: 7.7 cm ESV(MOD-sp4): 44.8 ml ESV(sp4-el): 43.6 ml EF(MOD-sp4): 39.5 % EF(sp4-el): 41.4 % SV(sp4-el): 30.8 ml LA A4 area: 17.3 cm2 LA dimension(2D): 3.6 cm RA A4 area: 16.3 cm2 Time Measurements MV dec time: 0.25 sec Doppler Measurements & Calculations MV E max carlos: 58.8 cm/sec Lat Peak E' Carlos: 11.4 cm/sec Med Peak E' Carlos: 10.1 cm/sec MV A max carlos: 99.8 cm/sec E/E' lat: 5.1 E/E' med: 5.8 MV E/A: 0.59 MV V2 max: 107.6 cm/sec Ao V2 max: 141.0 cm/sec MV max P.7 mmHg MV dec slope: 231.3 cm/sec2 Ao max P.0 mmHg MV V2 mean: 73.9 cm/sec Ao V2 mean: 103.1 cm/sec MV mean P.4 mmHg Ao mean P.7 mmHg MV V2 VTI: 31.8 cm Ao V2 VTI: 30.3 cm AV (velocity ratio): 0.89 LV V1 max: 133.8 cm/sec PA V2 max: 96.1 cm/sec LV V1 max P.2 mmHg PA V2 mean: 71.1 cm/sec LV V1 mean P.3 mmHg LV V1 mean: 98.2 cm/sec LV V1 VTI: 27.0 cm ECHO/Echo Complete Interpretation Summary Normal LV size. Left ventricular systolic function is normal. The left ventricular ejection fraction is 55 %. Stage 1 diastolic dysfunction. Ordering Physician: Giancarlo Herrera Referring Physician: Giancarlo Herrera Performed By: Violeta Le RCS
== END | disposition home or self-care (01) ==
LOC: CVS 12:47
PROVIDERS: PCP Family Medicine; Referring Provider Thoracic Surgery (Cardiothoracic Vascular Surgery); Visit Provider Thoracic Surgery (Cardiothoracic Vascular Surgery)
DX: I25.110 Atherosclerotic heart disease of native coronary artery with unstable angina pectoris (principal)
CPT/HCPCS: 93306

== ENCOUNTER → 2025-01-23 | Outpatient (CLI) | payer MEDICARE, OTHER, SELFPAY ==
--- NOTE | 2025-01-23 07:31 | CDU_ITS ---
Reason For Study Reason For Study: Bruit Rt. Velocities/BP Lt. Velocities/BP Prox CCA 71/9.5 cm/sec. Prox CCA 72.4/12.8 cm/sec. Mid CCA 72.1/17.1 cm/sec. Mid CCA 161.6/34.2 cm/sec. Dist CCA 114.3/13.9 cm/sec. Dist CCA 105.2/30.3 cm/sec. Bulb, 132.1/18.8 cm/sec. Prox ICA 81.8/16.7 cm/sec. Prox ICA 127.1/15.1 cm/sec. Mid ICA 63.3/19.3 cm/sec. Mid ICA 67.7/23.7 cm/sec. Dist ICA 52.3/16 cm/sec. Dist ICA 65.5/22.6 cm/sec. Lt. ICA/CCA = 0.51. Rt. ICA/CCA = 1.76. Prox ECA 148.4/14.5 cm/sec. Prox ECA 155.6/10.8 cm/sec. Lt. Vert. 52.5/14.7 cm/sec. Rt. Vert. 45.9/12.7 cm/sec. Right Extracranial There is homogeneous, smooth atherosclerotic plaque noted in the right common carotid artery. There is heterogeneous, irregular atherosclerotic plaque noted in the right internal carotid artery. There is intimal thickening but no significant atherosclerotic plaque noted in the right external carotid artery. Antegrade flow is noted in the right vertebral artery. There is homogeneous, irregular atherosclerotic plaque noted in the right bulb. Left Extracranial There is homogeneous, smooth atherosclerotic plaque noted in the left common carotid artery. There is heterogeneous, irregular atherosclerotic plaque noted in the left internal carotid artery. There is intimal thickening but no significant atherosclerotic plaque noted in the left external carotid artery. Antegrade flow is noted in the left vertebral artery. Procedure Carotid Duplex 15253. This is a Carotid Duplex examination using B-mode, color flow and specral Doppler. Exam performed in department. VL/Carotid Duplex Ultrasound Interpretation Summary Moderate (50-69%) stenosis right extracranial internal carotid. Mild (<50%) karishma nosis left extracranial internal carotid. Flow within the vertebral arteries is antegrade bilaterally. Ordering Physician: Giancarlo Herrera Referring Physician: Yury Orozco Performed By: Shavon Hurt RVT
--- OUTSIDE RECORDS SUMMARY | 2025-01-23 07:48 | XMS RPT_ITS | CCD ---
Author Organization [facility] Care Team Providers Care Online Content Coordinator Name Role Phone Dr. Miriam Orozco DO Primary Care Provider Dr. Miriam Orozco DO Attending Provider Dr. Miriam Orozco DO Referring Provider [phone] Pam LUKE, Dr. Cottno Other Provider Dr. Stone Williamson MD Attending Provider [phone] Radha Gutierrez Attending Provider Radha Gutierrez Referring Provider [phone] Dr. Stone Williamson MD Referring Provider [phone] Miriam Orozco Primary Care Provider HERRERA, RONNIE Attending Unavailable MIRIAM OROZCO Primary Care Unavailable HERRERA, RONNIE Attending Unavailable STONE WILLIAMSON Referring Unavailable MIRIAM OROZCO Primary Care Unavailable Dr. Ronnie Herrera MD Attending Provider Dr. Ronnie Herrera MD Referring Provider Miriam Orozco Primary Care Unavailable Stone Williamson Attending Unavailable Miriam Orozco Primary Care Unavailable PamMiriam hernandez Referring Unavailable Radha Gutierrez Attending Unavail able Miriam Orozco Primary Care Unavailable Herrera, Ronnie Referring Unavailable Herrera, Ronnie Attending Unavailable Radha Gutierrez Consulting Unavail able Miriam Orozco Referring Unavailable PamMiriam hernandez Attending Unavailable Pam, Miriam Primary Care Unavailable Pam, Miriam Primary Care Unavailable Herrera, Ronnie Attending Unavailable Herrera, Ronnie Referring Unavailable PamMiriam hernandez Primary Care Unavailable Teri, [place] Referring Unavailable Teri, Stone Attending Unavailable Miriam Orozco Primary Care Unavailable Radha Gutierrez Referring Unavail able Radha Gutierrez Attending Unavail able Miriam Orozco Referring Unavailable Miriam Orozco Attending Unavailable Miriam Orozco Primary Care Unavailable PamMiriam hernandez Referring Unavailable Miriam Orozco Attending Unavailable Miriam Orozco Primary Care Unavailable Miriam Orozco Primary Care Unavailable Teri, Stone Attending Unavailable Miriam Orozco Referring Unavailable Teri, [place] Attending Unavailable Miriam Orozco Consulting Unavailable Miriam Orozco Primary Care Unavailable Allergies Allergy Classification Reported Allergen(s) Allergy Type Date of Onset Reaction(s) Facility (10 sources) Enalapril Drug Allergy 12-11-2024 [facility] (10 sources) Pravastatin Drug Allergy 12-11-2024 [facility] (10 sources) rosuvastatin Drug Allergy 12-11-2024 [facility] (1 source) Enalapril Drug Allergy 12-11-2024 [facility] (1 source) Pravastatin Drug Allergy 12-11-2024 [facility] (1 source) rosuvastatin Drug Allergy 12-11-2024 [facility] Medications Current Medications Medication Drug Class(es) Dates Sig (Normalized) Sig (Original) aspirin 81 mg delayed release oral tablet (10 sources) Platelet Aggregation Inhibitor, Nonsteroidal Anti-inflammatory Drug Start: 12-11-2024 take 1 tablet by mouth once daily Aspirin (Adult Aspirin Regimen) 81 mg tablet,delayed release (DR/EC) Active 81 mg PO daily December 11, 2024 12:00am chlorhexidine gluconate 1.2 mg/ml mouthwash (1 source) Start: 01-14-2025 End: 01-14-2025 chlorhexidine (Peridex) 0.12 % solution Use 15 mL in the mouth or throat Once for 1 dose. Swish for 30 seconds and spit out the night before surgery. Do not swallow. 15 mL 01/14/2025 01/14/2025 Active cholecalciferol 0.05 mg oral capsule (10 sources) Vitamin D Start: 12-11-2024 take 1 capsule by mouth once daily Cholecalciferol (Vitamin D3) 50 mcg (2,000 unit) capsule Active 50 ug PO daily December 11, 2024 12:00am 24 hr dilTIAZem hydrochloride 360 mg extended release oral capsule (18 sources) Calcium Channel Colleen Start: 12-11-2024 take 1 capsule by mouth every twenty-four hours Diltiazem Hcl 360 mg capsule,extended release 24hr Active mg PO December 11, 2024 12:00am Start: 07-31-2024 take 1 capsule by mo [facility] once daily, then take 1 capsule by mouth every twenty-four hours dilTIAZem CD (Cardizem CD) 360 MG 24 hr capsule Take 360 mg by mouth daily. 07/31/2024 Active Start: 11-15-2020 End: 12-11-2024 take 1 capsule by mouth once daily Diltiazem Hcl 240 mg Capsule,Extended Release 24 Hr Discontinued 240 mg PO DAILY November 15, 2020 12:00am December 11, 2024 7:59am ezetimibe 10 mg oral tablet (10 sources) Dietary Cholesterol Absorption Inhibitor Start: 12-11-2024 take 1 tablet by mouth once daily Ezetimibe (Zetia) 10 mg tablet Active 10 mg PO daily 06 04December 11, 2024 12:00am famotidine 40 mg oral tablet (10 sources) Histamine-2 Receptor Antagonist Start: 12-11-2024 take 1 tablet by mouth once daily Famotidine 40 mg tablet Active 40 mg PO daily December 11, 2024 12:00am glimepiride 2 mg oral tablet (16 sources) Sulfonylurea Start: 12-11-2024 End: 12-11-2024 take 1 tablet by mouth once daily Glimepiride 2 mg tablet Active 2 mg PO DAILY December 11, 2024 1:01pm hydroCHLOROthiazide 25 mg oral tablet (12 sources) Thiazide Diuretic Start: 11-15-2020 take 1 tablet by mouth once daily hydroCHLOROthiazide (HYDRODiuril) 25 MG tablet Take 25 mg by mouth daily. 12/30/2024 Active losartan potassium 100 mg oral tablet (10 sources) Angiotensin 2 Receptor Colleen Start: 12-11-2024 take 1 tablet by mouth once daily Losartan 100 mg tablet Active 100 mg PO daily December 11, 2024 12:00am metFORMIN hydrochloride 500 mg oral tablet (18 sources) Biguanide Start: 12-11-2024 Metformin 500 mg tablet Active mg PO December 11, 2024 12:00am Start: 02-06-2015 End: 12-11-2024 take 1 tablet by mouth twice daily at mealtime Metformin 1,000 MG tablet Discontinued 1000 mg PO TWICE DAILY WITH MEALS February 06, 2015 12:00am December 11, 2024 7:57am Multivitamin tablet (6 sources) Start: 12-11-2024 Multivitamin tablet Active 1 {tbl} PO EVERY MORNING December 11, 2024 12:00am mupirocin 0.02 mg/mg topical ointment (1 source) RNA Synthetase Inhibitor Antibacterial Start: 01-14-2025 mupirocin (Bactroban) 2 % ointment Using a q-tip, place small fingertip size amount into each nostril the night before surgery. Do not occlude nasal passage. 1 g 01/14/2025 Active Ozempic, 1 MG/DOSE, 4 MG/3ML solution pen-injector (4 sources) inject 1 mg by subcutaneous injection every week Ozempic, 1 MG/DOSE, 4 MG/3ML solution pen-injector Inject 1 mg under the skin 1 (one) time per week. Active Semaglutide (6 sources) Start: 12-11-2024 Semaglutide (Ozempic) 1 mg/dose (4 mg/3 mL) pen injector Active mg SC December 11, 2024 12:00am Type 2 diabetic ubidecarenone 100 mg oral capsule (6 sources) Start: 12-11-2024 take 10 capsules by mouth once daily Coenzyme Q10 100 mg capsule Active 100 mg PO daily December 11, 2024 12:00am ubidecarenone 100 mg / vitamin e 5 unt oral capsule (4 sources) Start: 12-11-2024 take 1 capsule by mouth once daily coenzyme Q-10 100 MG capsule Take 100 mg by mouth daily. 12/11/2024 Active Completed/Discontinued Medications Medication Drug Class(es) Dates Sig (Normalized) Sig (Original) 0.5 ml dulaglutide 3 mg/ml auto-injector (8 sources) GLP-1 Receptor Agonist Start: 11-15-2020 End: 12-11-2024 Dulaglutide (Trulicity) 1.5 mg/0.5 mL Pen Injector Discontinued 1.5 mg SC EVERY WEEK November 15, 2020 12:00am December 11, 2024 7:58am meclizine hydrochloride 25 mg oral tablet (8 sources) Antiemetic Start: 11-15-2020 End: 12-11-2024 take 1 tablet by mouth every eight hours as needed for dizziness Meclizine 25 MG tablet Discontinued 25 mg PO EVERY 8 HOURS NEEDED as needed for Dizziness 20 0 November 15, 2020 12:00am December 11, 2024 7:59am rosuvastatin calcium 5 mg oral tablet (6 sources) HMG-CoA Reductase Inhibitor Start: 12-11-2024 End: 12-11-2024 take 1 tablet by mouth once daily Rosuvastatin 5 mg tablet Discontinued 5 mg PO daily December 11, 2024 12:00am December 11, 2024 1:00pm SITagliptin 100 mg oral tablet (8 sources) Dipeptidyl Peptidase 4 Inhibitor Start: 11-15-2020 End: 12-11-2024 take 1 tablet by mouth once daily Sitagliptin Phosphate (Januvia) 100 mg Tablet Discontinued 100 mg PO DAILY November 15, 2020 12:00am December 11, 2024 7:59am Problems Problem Classification Problem Date Documented Date Episodic/Chronic Conditions associated with dizziness or vertigo (8 sources) Vertigo; Translations: [Dizziness and giddiness] 11-15-2020 Episodic Coronary atherosclerosis and other heart disease (15 sources) Coronary arteriosclerosis; Translations: [Atherosclerotic heart disease of [place] coronary artery without angina pectoris] Onset: 01-14-2025 Chronic Diabetes mellitus with complications (4 sources) Insulin treated type 2 diabetes mellitus; Translations: [Type 2 diabetes mellitus with other circulatory complications] Onset: 01-14-2025 01-14-2025 Chronic Diabetes mellitus without complication (8 sources) Diabetes mellitus; Translations: [Type 2 diabetes mellitus without complications] Onset: 03-20-2024 12-11-2024 Chronic Disorders of lipid metabolism (12 sources) Hyperlipidemia; Translations: [Hyperlipidemia, unspecified] 12-11-2024 Chronic Esophageal disorders (6 sources) Gastroesophageal reflux disease; Translations: [Gastro-esophageal reflux disease without esophagitis] 12-11-2024 Chronic Essential hypertension (13 sources) Hypertensive disorder; Translations: [Essential (primary) hypertension] Onset: 12-11-2024 12-11-2024 Chronic Other aftercare (2 sources) 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; Translations: [correction (current) use of insulin (HCC)] Onset: 01-14-2025 Episodic Other circulatory disease (12 sources) Carotid bruit; Translations: [Other specified symptoms and signs involving the circulatory and respiratory systems] 12-11-2024 Episodic Other circulatory disease (2 sources) Other specified symptoms and signs involving the circulatory and respiratory systems; Translations: [Other specified symptoms and signs involving the circulatory and respiratory systems] Onset: 12-11-2024 Episodic Other lower respiratory disease (12 sources) Dyspnea on exertion; Translations: [Other forms of dyspnea] 12-11-2024 Episodic Other lower respiratory disease (2 sources) Other forms of dyspnea; Translations: [Other forms of dyspnea] Onset: 01-01-2025 Episodic Other screening for suspected conditions (not mental disorders or infectious disease) (14 sources) Cardiovascular stress test abnormal; Translations: [Abnormal result of other cardiovascular function study] Onset: 12-11-2024 12-11-2024 Episodic Unclassified (3 sources) Abnormal cardiovascular stress test Unclassified (3 sources) R94.39 - Abnormal result of other cardiovascular function study,I25.10 - Atherosclerotic heart disease of [place] coronary artery without angina pectoris Results Test Name Value Interpretation Reference Range Facility [id number] 01-20-2025 [id number] Medication List Accurate as of January 20, 2025 10:55 AM. Always use your most recent med list. aspirin 81 MG EC tablet Medication Adjustments for Surgery: Take morning of surgery cholecalciferol 50 MCG (1999 UT) capsule Commonly known as: Vitamin D-3 Medication Adjustments for Surgery: Hold morning of surgery coenzyme Q-10 100 MG capsule Medication Adjustments for Surgery: Other (Comment) Notes to patient: Continue holding until after surgery dilTIAZem CD 360 MG 24 hr capsule Commonly known as: Cardizem CD Medication Adjustments for Surgery: Take morning of surgery ezetimibe 10 MG tablet Commonly known as: Zetia Medication Adjustments for Surgery: Hold morning of surgery famotidine 40 MG tablet Commonly known as: Pepcid Medication Adjustments for Surgery: Take morning of surgery glimepiride 2 MG tablet Commonly known as: Amaryl Medication Adjustments for Surgery: Hold morning of surgery hydroCHLOROthiazide 25 MG tablet Commonly known as: HYDRODiuril Medication Adjustments for Surgery: Hold morning of surgery losartan 100 MG tablet Commonly known as: Cozaar Medication Adjustments for Surgery: Hold morning of surgery metFORMIN 500 MG tablet Commonly known as: Glucophage Medication Adjustments for Surgery: Stop 2 days before surgery multivitamin tablet Medication Adjustments for Surgery: Hold morning of surgery mupirocin 2 % ointment Commonly known as: Bactroban Using a q-tip, place small fingertip size amount into each nostril the night before surgery. Do not occlude nasal passage. Medication Adjustments for Surgery: Take night before surgery Ozempic (1 MG/DOSE) 4 MG/3ML solution pen-injector Generic drug: semaglutide Medication Adjustments for Surgery: Other (Comment) Notes to patient: STOP 7 DAYS PRIOR TO SURGERY. LAST DOSE WAS SUNDAY 01/14 ADDITIONAL INSTRUCTIONS: You may take Tylenol for pain. NO NSAIDS such as Motrin, Ibuprofen, Advil, Aleve or Naprosyn for 7 days prior to surgery or longer if instructed by your surgeon. IF YOU TAKE BLOOD THINNERS OR ASPIRIN: CONTINUE TAKING YOUR ASPIRIN field support rep Hibiclens (chlorahexadine soap) from any pharmacy or drug store. It is avaible over the counter. Shower with Hibiclens the night before and morning of surgery. Wear clean clothes to bed and put clean linen on the bed the night before surgery. No, lotion, powder, deodorant or body sprays. No hair products. Remove all jewelry and leave it at home. Wear loose comfortable clothing to go home in. You may brush your teeth morning of surgery. Do not wear contacts day of surgery. No marijuana (THC), smoking or alcohol for 24 hours prior to surgery. Please arrange for a responsible adult to drive you home after your surgery and that there is a responsible adult with you for 24 hours post discharge. Follow any instructions given to you by Dr. Herrera. If you have specific questions, please call your surgeon. We encourage you to write down any questions you may have for the surgeon, anesthesiologist, or other members of the surgical team and bring it with you the day of surgery. You will receive a call the day before your surgery to verify your arrival time and date. You will be asked to arrive at least two hours prior to your scheduled surgery time. Please bring photo ID and insurance information. DIET: NO food after midnight. You may have clear liquids up to 2 hours prior to surgery including: -water -apple or cranberry juice -black coffee or clear tea -soda/carbonated beverage -sports drinks (Gatorade, Powerade) NO orange juice, creamer, milk or dairy. NO soup, broth, or jello. NO candy, mints, or gum. Have up to 16 ounces of your favorite clear fluid, preferably a sports drink such as Gatorade or Powerade up to 2 hours before your surgery start time. For patients with diabetes, please opt for a zero sugar fluid. PARKING: NETWORK CONTROL OPERATORS SUPERVISOR AND PARKING IN THE MAIN DECK ARE FREE DAY OF SURGERY. PARKING IN THE DECK-- AFTER PARKING TAKE THE ELEVATOR TO LEVEL ONE AND TAKE THE BRIDGE TO THE HOSPITAL. GO TO THE RIGHT AND GO AROUND THE CORNER TO THE SAME DAY SURGERY DESK AND CHECK IN THERE. IF GOING IN THE MAIN ENTRANCE-- TURN LEFT AND GO DOWN THE [place]APPELL TO THE H ELEVATORS AND TAKE THEM TO ONE, LEFT OFF THE ELEVATOR AND GO AROUND TO THE SAME DAY DESK AND CHECK IN. Normal [facility] 36on 01-16-2025 36 Patient had the TTE done at [facility] today, having carotid US done 01/23 at [facility]. Exam requests canceled at [facility] sent 01/[address] [facility] Echo Completeon 01-16-2025 Echo Complete [facility] [address] [place] [address] Echo Complete 01/16/25 1309 MR#: [id number] Acct: [id number] Name: RYAN WICK Rep #: [id number] : 1955 69 From: Stone Williamson MD Attending Dr: Dr. Ronnie Herrera MD Status: DEP CLI Ordering Dr: Ronnie Herrera MD Date: 01/16/25 Location: [facility] Sex: M C Admitted: Reason For Study Reason For Study: ASHD Procedure This was a 2D Doppler, Color Flow transthoracic echocardiogram. Exam performed in department. Left Ventricle Normal LV size. Mid cavitary false tendon noted. Left ventricular systolic function is normal. The left ventricular ejection fraction is 55 %. Stage 1 diastolic dysfunction. No regional wall motion abnormalities noted. Right Ventricle Normal RV size. Normal systolic function. Atria Normal left atrium. Normal right atrium. Mitral Valve Normal mitral valve. Tricuspid Valve Normal tricuspid valve. Mild tricuspid valve insufficiency. Aortic Valve Normal aortic valve. Trisinus/trileaflet aortic valve. Pulmonic Valve Normal pulmonic valve. Great Vessels Normal aortic root. The pulmonary artery is normal size. Normal inferior vena cava. Pericardium/Pleural No pericardial effusion. MMode/2D Measurements Calculations LVIDd: 4.8 cm IVSd: 1.2 cm Ao root diam: 3.5 cm LVIDs: 3.6 cm LVPWd: 1.1 cm RVDd: 3.0 cm FS: 25.7 % LAV(MOD-bp): 41.4 ml LVAd ap4: 27.8 cm2 SV(MOD-sp4): 29.2 ml LAV(MOD-bp) Indexed: 18.9 ml/m2 LVLd ap4: 8.9 cm SI(MOD-sp4): 13.3 ml/m2 LAV(MOD-sp2): 30.0 ml EDV(MOD-sp4): 74.0 ml LAV(MOD-sp4): 47.5 ml EDV(sp4-el): 74.5 ml LVAs ap4: 19.9 cm2 LVLs ap4: 7.7 cm ESV(MOD-sp4): 44.8 ml ESV(sp4-el): 43.6 ml EF(MOD-sp4): 39.5 % EF(sp4-el): 41.4 % SV(sp4-el): 30.8 ml LA A4 area: 17.3 cm2 LA dimension(2D): 3.6 cm RA A4 area: 16.3 cm2 Time Measurements MV dec time: 0.25 sec Doppler Measurements Calculations MV E max carlos: 58.8 cm/sec Lat Peak E' Carlos: 11.4 cm/sec Med Peak E' Carlos: 10.1 cm/sec MV A max carlos: 99.8 cm/sec E/E' lat: 5.1 E/E' med: 5.8 MV E/A: 0.59 MV V2 max: 107.6 cm/sec Ao V2 max: 141.0 cm/sec MV max P.7 mmHg MV dec slope: 231.3 cm/sec2 Ao max P.0 mmHg MV V2 mean: 73.9 cm/sec Ao V2 mean: 103.1 cm/sec MV mean P.4 mmHg Ao mean P.7 mmHg MV V2 VTI: 31.8 cm Ao V2 VTI: 30.3 cm AV (velocity ratio): 0.89 LV V1 max: 133.8 cm/sec PA V2 max: 96.1 cm/sec LV V1 max P.2 mmHg PA V2 mean: 71.1 cm/sec LV V1 mean P.3 mmHg LV V1 mean: 98.2 cm/sec LV V1 VTI: 27.0 cm ECHO/Echo Complete Interpretation Summary Normal LV size. Left ventricular systolic function is normal. The left ventricular ejection fraction is 55 %. Stage 1 diastolic dysfunction. Ordering Physician: Ronnie Herrera Referring Physician: Ronnie Herrera Performed By: Violeta Le RCS 01/22/25637 Date Stone Wliliamson MD CC: Dr. Ronnie Herrera MD; Dr. 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 Instructed to hold NSAIDS 7 days prior to surgery. All other medications per PAT protocol. Pharmacy confirmed. All questions answered. Normal [facility] Progress Note [facility] CARDIOVASCULAR [facility] THORACIC SURGERY [address] [facility] [address] Dept: [phone] Dept Loc: [phone] Visit type: New Reason for Visit: Multivessel coronary artery disease-evaluate for CABG Assessment and plan 69-year-old patient with diabetes mellitus who has had exertional dyspnea underwent a stress test which was abnormal. A subsequent cardiac catheterization revealed multivessel coronary artery disease with a chronically occluded right coronary artery (with collateral reconstitution via [id number] collaterals), and 90% stenosis at the ostium of an obtuse marginal branch of the circumflex coronary artery, and a 70% proximal stenosis of the LAD. Multiple strategies for management were discussed including medical therapy, PCI/stent, and coronary bypass surgery. In a 69-year-old patient with diabetes and proximal LAD disease, we recommended coronary bypass surgery as the most durable solution that will result in the fewest number of postprocedural interventions. His perioperative risk was discussed and delineated in the STS risk calculator below. His operation would consist of a left internal mammary artery graft to the LAD, a vein graft to the distal right coronary artery system, and a vein graft to the obtuse marginal coronary artery with a proximal stenosis. He will require preprocedure evaluation with carotid ultrasound, surface echo, and a noncontrast CT scan of the chest. His lower extremities appear quite healthy; therefore, vein mapping will not be necessary. STS Risk Calculator Procedure Type: Isolated CABG Perioperative Outcome Estimate % Operative Mortality 0.56% Morbidity & Mortality 3.42% Stroke 0.632% Renal Failure 0.525% Reoperation 1.59% Prolonged Ventilation 1.64% Deep Sternal Wound Infection 0.129% Long Hospital Stay (>14 days) 1.91% Short Hospital Stay (<6 days)* 63.7% History of Present Illness Ryan Wick is a 69 y.o. male referred by Dr. Williamson for CABG. Per note, pt saw PCP with complaints of shortness of breath on exertion. A stress test was ordered which was abnormal with EKG changes suggestive of ischemia at a moderate workload. Pt was then referred to Cardiology who ordered a heart catheterization which pt underwent on 12/25/24 and demonstrated triple-vessel disease with severe disease involving the circumflex and RCA, moderately severe disease involving LAD with mild LV systolic dysfunction. A1C drawn in December 2024 was 6.7%. Pt is here now for an evaluation. Past Medical History Past Medical History: Diagnosis Date Diabetes mellitus (HCC) GERD (gastroesophageal reflux disease) Gout History of kidney stones Hyperlipidemia Hypertension Lumbar stenosis Osteoarthritis Past Surgical History Past Surgical History: Procedure Laterality Date BACK SURGERY KNEE SURGERY Right ROTATOR CUFF REPAIR Bilateral Family History Family History Problem Relation Name Age of Onset Diabetes Mother Coronary artery disease Father Melanoma Father Heart Surgery Father Coronary artery disease Brother Social History Social History Tobacco Use Smoking status: Never Smokeless tobacco: Never Substance Use Topics Alcohol use: Never Drug use: Never Allergies Allergies Allergen Reactions Enalapril Cough Rosuvastatin Other Reaction(s): fatigue Pravastatin Other Reaction(s): fatigue Medications Current Outpatient Medications: aspirin 81 MG EC tablet, Take 81 mg by mouth daily., Disp: , Rfl: cholecalciferol (Vitamin D-3) 50 MCG (1999 UT) capsule, Take 50 mcg by mouth daily., Disp: , Rfl: coenzyme Q-10 100 MG capsule, Take 100 mg by mouth daily., Disp: , Rfl: dilTIAZem CD (Cardizem CD) 360 MG 24 hr capsule, Take 360 mg by mouth daily., Disp: , Rfl: ezetimibe (Zetia) 10 MG tablet, Take 10 mg by mouth daily., Disp: , Rfl: famotidine (Pepcid) 40 MG tablet, Take 40 mg by mouth daily., Disp: , Rfl: glimepiride (Amaryl) 2 MG tablet, Take 2 mg by mouth daily., Disp: , Rfl: hydroCHLOROthiazide (HYDRODiuril) 25 MG tablet, Take 25 mg by mouth daily., Disp: , Rfl: losartan (Cozaar) 100 MG tablet, Take 100 mg by mouth daily., Disp: , Rfl: metFORMIN (Glucophage) 500 MG tablet, Take 500 mg by mouth daily (with breakfast)., Disp: , Rfl: Ozempic, 1 MG/DOSE, 4 MG/3ML solution pen-injector, Inject 1 mg under the skin 1 (one) time per week., Disp: , Rfl: Review of Systems Review of Systems Constitutional: Positive for fatigue. Respiratory: Positive for shortness of breath (on exertion). All other systems reviewed and are negative. Physical Exam Vitals: BP (!) 142/77 (BP Location: Left arm, Patient Position: Sitting, BP Cuff Size: Large adult) Pulse 67 Ht 1.93 m (6' 4) Wt 91.6 kg (202 lb) BMI 24.59 kg/m? Physical Exam Constitutional: General: He is not in acute distress. Appearance: Normal appearanc (more content not included)... Normal [facility] Cardiac Cath Diagnosticon Cardiac Cath Diagnostic [facility] Imaging Services [address] [place] [address] Cardiac Cath Diagnostic MR#: [id number] Acct: [id number] Name: RYAN WICK Rep #: [id number] : 1955 69 From: Stone Williamson MD PCP: Dr. Miriam Orozco, DO Status:[place] [facility] [place] Patient Name: RYAN WICK Study Date: 12/25/2024 Performing: Stone Williamson MD Ht: 76 inches 193.04 cm : 1955 Wt: 202.01 lbs 91.63 kg Age: 69 Gender: male BSA: 2.22 PROCEDURE(S) PERFORMED DC01-([id number])LHC/COR/LV CLINICAL PROFILE AND INDICATIONS Indications: Suspected CAD Heart Failure: None Stress/Imaging Standard Exercise Stress Test: Yes Result: Positive Intermediate Risk CAD Presentations: Stable angina. 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 RECOMMENDATIONS Will consider aggressive medical therapy versus surgical opinion. DESCRIPTION OF PROCEDURE The patient arrived to the procedure lab. The risks and benefits of the procedure as well as a full description of our services here and current unavailability of surgical backup were fully explained to the patient and/or their significant other prior to the catheterization. The Timeout was completed, verifying the correct patient and procedure. The patient's procedural site was prepped and draped in the usual fashion. Local anesthetic was given subcutaneously to right radial region with Lidocaine 2%. Using a modified Seldinger technique, arterial access was obtained via the right radial artery, a 6Fr sheath was inserted. Left Coronary Artery selective angiography was performed in multiple views using a 5 Fr. 4.0 [place] catheter. Right Coronary Artery selective angiography was then performed in multiple views using a 5 Fr. 4.0 [place] catheter. Left Ventriculography was performed in MASTERS projection using a 5 Fr. Pigtail catheter. LV to AO pullback pressures were then recorded.The arterial sheath was pulled and a TR Band was applied for hemostasis. 10cc air CORONARY ANGIOGRAPHY DOMINANCE: Co- Dominant LEFT HEART ASSESSMENT Left Ventricular Ejection Fraction: by LV Gram 45 % Anterior Hypokinesis - Mild. Lateral Hypokinesis - Moderate Depressed Left Ventricular systolic function LEFT MAIN: Angiographically normal LEFT ANTERIOR DESCENDING ARTERY: This vessel is calcified in the proximal and mid segment with moderate disease of approximately 70% involving long segment. The second diagonal ostium also has a 70% stenosis. The rest of the vessel appears to be mildly diseased only. [id number]-[id number] collaterals are noted. CIRCUMFLEX ARTERY: Mild calcification, Codominant vessel. The proximal circumflex artery has a 70 to 80% stenotic lesion in the first obtuse marginal branch is subtotally occluded in the second obtuse marginal branch is calcified with a long 80% occlusion. Distal circumflex has mild disease and [id number] collaterals are noted. RIGHT CORONARY ARTERY: Codominant vessel and totally occluded in the midsegment. Distal collateralization is noted. COLLATERAL FLOW: Collateral flow from Left to Right COMPLICATIONS No Complications PROCEDURE MEDICATIONS Fentanyl 50 mcg IV Versed 1 mg IV Versed 1 mg IV Oxygen: 2 L/min via nasal cannula Heparin given IA 12/25/2024 08:01:32 Verapamil 2.5mg, Ntg 100mcgs, 3000 units of Heparin given IA 12/25/2024 08:01:32 SUMMARY OF HEMODYNAMIC DATA Time AIR REST ECG 07:52:18 Art 132/63 (84) 08:03:50 AO 132/69 (98) SA 08:07:00 LV 124/4, 12 08:15:07 LV 121/3, 9 08:15:14 Signed By Stone Williamson MD On 12/25/2024 08:30:06 Stone Williamson MD 12/25/24 0830 Date Stone Williamson MD Cosigner Signature: Date (if indicated) CC: Dr. Stone Williamson MD; Dr. Miriam Orozco DO Date Dictated: 12/25/24 0758 Date Transcribed: 12/25/24829 Wood Tool Maker: [place] Signed Normal [facility] Cardiac catheterization repo rtOrdered By: Stone Williamson on 12-25-2024 Cardiac catheterization study [facility] Imaging Services [address] [place] [address] Cardiac Cath Diagnostic MR#: [id number] Acct: [id number] Name: RYAN WICK Rep #:[id number] : 1955 69 From: Stone Williamson MD PCP: Dr. Miriam Orozco DO Status:REG [facility] [place] Patient Name: RYAN WICK Study Date: 12/25/2024 Performing: Stone Williamson MD Ht: 76 inches 193.04 cm : 1955 Wt: 202.01 lbs 91.63 kg Age: 69 Gender: male BSA: 2.22 PROCEDURE(S) PERFORMED DC01-(31850)LHC/COR/LV CLINICAL PROFILE AND INDICATIONS Indications: Suspected CAD Heart Failure: None Stress/Imaging Standard Exercise Stress Test: Yes Result: Positive Intermediate Risk CAD Presentations: Stable angina. 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 RECOMMENDATIONS Will consider aggressive medical therapy versus surgical opinion. DESCRIPTION OF PROCEDURE The patient arrived to the procedure lab. The risks and benefits of the procedure as well as a full description of our services here and current unavailability of surgical backup were fully explained to the patient and/or their significant other prior to the catheterization. The Timeout was completed, verifying the correct patient and procedure. The patient's procedural site was prepped and draped in the usual fashion. Local anesthetic was given subcutaneously to right radial region with Lidocaine 2%. Using a modified Seldinger technique, arterial access was obtained via the right radial artery, a 6Fr sheath was inserted. Left Coronary Artery selective angiography was performed in multiple views using a 5 Fr. 4.0 [place] catheter. Right Coronary Artery selective angiography was then performed in multiple views using a 5 Fr. 4.0 [place] catheter. Left Ventriculography was performed in MASTERS projection using a 5 Fr. Pigtail catheter. LV to AO pullback pressures were then recorded.The arterial sheath was pulled and a TR Band was applied for hemostasis. 10cc air CORONARY ANGIOGRAPHY DOMINANCE: Co- Dominant LEFT HEART ASSESSMENT Left Ventricular Ejection Fraction: by LV Gram 45 % Anterior Hypokinesis - Mild. Lateral Hypokinesis - Moderate Depressed Left Ventricular systolic function LEFT MAIN: Angiographically normal LEFT ANTERIOR DESCENDING ARTERY: This vessel is calcified in the proximal and mid segment with moderate disease of approximately 70% involving long segment. The second diagonal ostium also has a 70% stenosis. The rest of the vessel appears to be mildly diseased only. [id number] collaterals are noted. CIRCUMFLEX ARTERY: Mild calcification, Codominant vessel. The proximal circumflex artery has a 70 to 80% stenotic lesion in the first obtuse marginal branch is subtotally occluded in the second obtuse marginal branch is calcified with a long 80% occlusion. Distal circumflex has mild disease and agmr-[id number] collaterals are noted. RIGHT CORONARY ARTERY: Codominant vessel and totally occluded in the midsegment. Distal collateralization is noted. COLLATERAL FLOW: Collateral flow from Left to Right COMPLICATIONS No Complications PROCEDURE MEDICATIONS Fentanyl 50 mcg IV Versed 1 mg IV Versed 1 mg IV Oxygen: 2 L/min via nasal cannula Heparin given IA 12/25/2024 08:01:32 Verapamil 2.5mg, Ntg 100mcgs, 3000 units of Heparin given IA 12/25/2024 08:01:32 SUMMARY OF HEMODYNAMIC DATA Time AIR REST ECG 07:52:18 Art 132/63 (84) 08:03:50 AO 132/69 (98) SA 08:07:00 LV 124/4, 12 08:15:07 LV 121/3, 9 08:15:14 Signed By Stone Williamson MD On 12/25/2024 08:30:06 Teri, [place] MD 12/25/24829 Date _ Stone Williamson MD Cosigner Signature: Date (if indicated) CC: Dr. Stone Williamson MD; Dr. Miriam Orozco DO ~ Date Dictated: 12/25/24757 Date Transcribed: 12/25/24829 Wood Tool Maker: [place] Signed [facility] Work Phone: Absolute lymphocyte countOrd ered By: Radha Adame on 12-11-2024 Lymphocytes Auto (Unsp spec) [#/Vol] 1.08 10*3/uL 0.83-4.51 [facility] Absolute neutrophil countOrd ered By: Radha Adame on 12-11-2024 Neutrophils (Bld) [#/Vol] 6.5 10*3/uL 2.0-7.7 [facility] Anion gap in Serum or Plasma Ordered By: Radha Adame on 12-11-2024 Anion gap [Moles/Vol] 14 mmol/L 5-15 [facility] Automated lymphocyte count a s percentage of total leukocytesOrdered By: Radha Adame on 12-11-2024 Lymphocytes/100 WBC Auto (Unsp spec) 12.5 % Low 19-41 [facility] BUN/creatinine ratioOrdered By: Radha Adame on 12-11-2024 Urea nitrogen/Creatinine [Mass ratio] 20.8 mg/mg High 02-24 [facility] Basic Metabolic Profile (BMP )on 12-11-2024 BUN/CRE 20.8 RATIO High 02-24 [facility] Comment on above: Performed By: #### L 500.2500, L100.0100 #### [facility] Laboratory [facility] [place], [address] Calcium [Mass/Vol] 9.8 mg/dL Normal 7.6-11.0 [facility] Comment on above: Performed By: #### L 500.2500, L100.0100 #### [facility] [address] [place], [address] Chloride [Moles/Vol] 99 mmol/L Normal 98-108 [facility] Comment on above: Performed By: #### L 500.2500, L100.0100 #### [facility] [address] [place], [address] CO2 [Moles/Vol] 26.9 mmol/L Normal 21.0-32.0 [facility] Comment on above: Performed By: #### L 500.2500, L100.0100 #### [facility] [address] [place], [address] Creatinine [Mass/Vol] 1.19 mg/dL Normal 0.70-1.20 [facility] Comment on above: Performed By: #### L 500.2500, L100.0100 #### [facility] [address] [place], [address] GAP 14 Normal 5-15 [facility] Comment on above: Performed By: #### L 500.2500, L100.0100 #### [facility] [address] [place], [address] GFR/1.73 sq M.predicted among non-blacks MDRD (S/P/Bld) [Vol rate/Area] 66 mL/min/{1.73_m2} Normal >60 [facility] Comment on above: Result Comment: mL/m in/1.73m2 CKD-EPI Creatinine Equation (2020) Performed By: #### L 500.2500, L100.0100 #### [facility] [address] [place], [address] Glucose [Mass/Vol] 141 mg/dL High 70-99 [facility] Comment on above: Performed By: #### L 500.2500, L100.0100 #### [facility] [address] [place], [address] Potassium [Moles/Vol] 3.9 mmol/L Normal 3.3-5.1 [facility] Comment on above: Result Comment: Hemo lysis present, Results??could be affected. ?? Performed By: #### L 500.2500, L100.0100 #### [facility] [address] [place], [address] Sodium [Moles/Vol] 139 mmol/L Normal 133-145 [facility] Comment on above: Performed By: #### L 500.2500, L100.0100 #### [facility] [address] [place], [address] Urea nitrogen [Mass/Vol] 25 mg/dL High 4-19 [facility] Comment on above: Performed By: #### L 500.2500, L100.0100 #### [facility] [address] [place], [address] Basophil percentageOrdered B y: Radha Adame on 12-11-2024 Basophils/100 WBC (Bld) 0.3 % 0-1 [facility] CBC W/Diff, Automatedon 08-0 Absolute Lymph 1.08 X10 3/uL Normal 0.83-4.51 [facility] Comment on above: Performed By: #### L 500.2500, L100.0100 #### [facility] [address] [place], [address] Absolute Neut 6.5 X10 3/uL Normal 2.0-7.7 [facility] Comment on above: Performed By: #### L 500.2500, L100.0100 #### [facility] [address] [place], [address] Basophils/100 WBC (Bld) 0.3 % Normal 0-1 [facility] Comment on above: Performed By: #### L 500.2500, L100.0100 #### [facility] [address] [place], [address] Eosinophils/100 WBC (Bld) 1.4 % Normal 0-5 [facility] Comment on above: Performed By: #### L 500.2500, L100.0100 #### [facility] [address] [place], [address] Erythrocyte distribution width (RBC) [Ratio] 12.2 % Normal 11.6-14.6 [facility] Comment on above: Performed By: #### L 500.2500, L100.0100 #### [facility] [address] [place], [address] Hematocrit (Bld) [Volume fraction] 38.2 % Low 40-54 [facility] Comment on above: Performed By: #### L 500.2500, L100.0100 #### [facility] [address] [place], [address] Hemoglobin (Bld) [Mass/Vol] 13.0 g/dL Normal 13.0-16.5 [facility] Comment on above: Performed By: #### L 500.2500, L100.0100 #### [facility] [address] [place], [address] IG% 0.900 Normal 0.0-0.9 [facility] Comment on above: Result Comment: IG% - Immature Granulocytes (promyelocytes, myelocytes and metamyelocytes) > 1% indicates that a LEFT SHIFT is Present. Performed By: #### L 500.2500, L100.0100 #### [facility] [address] [place], [address] Lymphocytes/100 WBC (Bld) 12.5 % Low 19-41 [facility] Comment on above: Performed By: #### L 500.2500, L100.0100 #### [facility] [address] [place], [address] MCH (RBC) [Entitic mass] 31.2 pg Normal 27.0-32.0 [facility] Comment on above: Performed By: #### L 500.2500, L100.0100 #### [facility] [address] [place], [address] MCHC (RBC) [Mass/Vol] 34.0 g/dL Normal 32-36 [facility] Comment on above: Performed By: #### L 500.2500, L100.0100 #### [facility] [address] [place], [address] MCV (RBC) [Entitic vol] 91.6 fL Normal 80-94 [facility] Comment on above: Performed By: #### L 500.2500, L100.0100 #### [facility] [address] [place], [address] Monocytes/100 WBC (Bld) 10.1 % High 0-10 [facility] Comment on above: Performed By: #### L 500.2500, L100.0100 #### [facility] [address] [place], [address] Neutrophils/100 WBC (Bld) 74.8 % High 47-70 [facility] Comment on above: Performed By: #### L 500.2500, L100.0100 #### [facility] [address] [place], [address] Nucleated RBC (Bld) [#/Vol] 0 10*3/uL Normal 0-5 [facility] Comment on above: Performed By: #### L 500.2500, L100.0100 #### [facility] [address] [place], [address] Platelet mean volume (Bld) [Entitic vol] 10.4 fL Normal 6.2-12.0 [facility] Comment on above: Performed By: #### L 500.2500, L100.0100 #### [facility] [address] [place], [address] Platelets (Bld) [#/Vol] 289 10*3/uL Normal 150-450 [facility] Comment on above: Performed By: #### L 500.2500, L100.0100 #### [facility] [address] [place], [address] RBC (Bld) [#/Vol] 4.17 10*6/uL Low 4.6-6.2 [facility] Comment on above: Performed By: #### L 500.2500, L100.0100 #### [facility] [address] [place], [address] RDW SD 40.8 fl Normal 35.1-43.9 [facility] Comment on above: Performed By: #### L 500.2500, L100.0100 #### [facility] [address] [place], [address] WBC (Bld) [#/Vol] 8.6 10*3/uL Normal 4.4-11.0 [facility] Comment on above: Performed By: #### L 500.2500, L100.0100 #### [facility] [address] [place], [address] Carbon dioxide, total [Moles /volume] in Central venous bloodOrdered By: Radha Adame on 12-11-2024 CO2 [Moles/Vol] 26.9 mmol/L 21.0-32.0 [facility] Cardiology Visit Reporton Cardiology Visit Report [facility] [address] [place] [address] OFFICE VISIT Date of Service: 12/11/24 MR#: [id number] Acct: [id number] Name: RYAN WICK Rep #: [id number] : 1955 Provider: GWYN Oliveros Age/Sex: 69/M Location: [facility] [place] [place] [facility] Status: Signed HPI HPI History of Present Illness Details: Ryan Wick is a 69 year old gentleman that presents here today to establish care for an abnormal stress. Patient does have shortness of breath with activity. He is also more short of breath with exertion. This is new or over the last few months. He did mention this to his primary care doctor and did undergo a stress test which is abnormal. That is why he is here today. Intake Vital Signs 11/15/20 06:11 12/11/24 08:01 Height 6 ft 4 in 6 ft 4 in Weight: 202 lb BMI 24.5 BP 127/72 H Blood Pressure Location Lt brachial Position Sitting Respiration 18 Pulse 77 Pulse Source Monitor Intake Visit Reasons: POS. STRESS ([facility]) Business Communications Instructor Required: No Accompanied by: Is patient in pain?: No Allergies pravastatin Allergy (Verified 12/11/24 13:04) fatigue enalapril Adverse Reaction (Intermediate, Verified 12/11/24 13:04) cough rosuvastatin (From Crestor) Adverse Reaction (Intermediate, Verified 12/11/24 13:21) fatigue Medications ???Medication ???Instructions ???Recorded ???Confirmed ???Type hydrochlorothiazide 25 mg tablet 25 mg PO DAILY 11/15/20 12/25/24 H istory aspirin 81 mg tablet,delayed 81 mg PO QDAY 12/11/24 12/25/24 Hi story release (Adult Aspirin Regimen) cholecalciferol (vitamin D3) 50 50 mcg PO QDAY 12/11/24 12/24/24 H istory mcg (2,000 unit) capsule coenzyme Q10 100 mg capsule 100 mg PO QDAY 12/11/24 12/24/24 H istory diltiazem HCl 360 mg mg PO 12/11/24 12/11/24 History capsule,extended release 24 hr ezetimibe 10 mg tablet (Zetia) 10 mg PO QDAY #30 tabs 12/11/24 Rx famotidine 40 mg tablet 40 mg PO QDAY 12/11/24 12/24/24 Hi story glimepiride 2 mg tablet 2 mg PO DAILY 12/11/24 12/25/24 Hi story losartan 100 mg tablet 100 mg PO QDAY 12/11/24 12/25/24 H istory metformin 500 mg tablet mg PO 12/11/24 12/11/24 History multivitamin 1 tab PO QAM 12/11/24 12/24/24 His tory semaglutide 1 mg/dose (4 mg/3 mL) mg subcut Type 2 diabetic 5 12/11/24 History subcutaneous pen injector (Ozempic) Have you fallen in the past year?: No PFSH Medical History (Updated 12/25/24 @ 09:[address] Stone Williamson MD) LOVING (dyspnea on exertion) Hyperlipidemia Osteoarthritis Gout GERD (gastroesophageal reflux disease) Lumbar stenosis History of kidney stones Diabetes Hypertension Surgical History (Updated 12/11/24 @ 07:50 by Radha PASCAL, PA) History of back surgery H/O right knee surgery S/P right rotator cuff repair S/P left rotator cuff repair Family History (Updated 12/11/24 @ 13:18 by Radha PASCAL, PA) Father CAD (coronary artery disease) Cancer melanoma Mother Diabetes Brother CAD (coronary artery disease) Social History (Updated 11/15/20 @ 09:[address] Ronnie Parker DO) Smoking Status: Never smoker alcohol intake: never ROS Const Const: Negative for fatigue or weakness Eyes Eyes: Negative for change in vision ENT ENT: Negative for dizziness or balance problems Cardio Chest Pain: No Palpitations: No Edema: None Resp Respiratory: Positive for SOB with activity (walking up flights of steps, noticed in the last few weeks. ) and other (more SOB mote noticed with yard work ); Negative for SOB at rest or SOB orthopnea SOB lying down GI GI: Negative nausea or heartburn Musc Musc: Negative for balance problems Neuro Neuro: Negative for dizziness, lightheadedness, near syncope, syncope or weakness Endo Endo: Negative for fatigue Cardiology Exam Const Appearance: cooperative, no acute distress and well developed Orientation: alert, awake and oriented x3 Head Head: normocephalic and atraumatic Mouth: moist mucous membranes Eyes General: appearance normal, both eyes and all related structures Conjunctivae: conjunctivae normal Pupils: PERRL EOM: EOM intact bilaterally Neck Neck: normal visual inspection, no lymphadenopathy and no JVD Carotids: bruit Left Neck Mass: Negative Neck mass Chest Chest inspection: normal inspection of the chest and symmetric chest movement Auscultation: Bilateral: Clear to Auscultation Cardio Palpation: normal PMI Rate: regular rate Rhythm: regular rhythm Heart sounds: S1 normal and S2 normal; Negative rub, gallop or murmur GI GI: normal to inspection, soft, no hepatosplenomegaly and bowel sounds present; Negative tender Neuro General: patient alert, patient awake, patient orient (more content not included)... Normal [facility] Chest PA and Lateralon 12-11 Chest PA and Lateral [facility] Imaging Services [address] [place], [place] [address] Chest PA and Lateral MR#: [id number] Acct: [id number] Name: RYAN WICK Rep #: [id number] : 1955 M 69 From: Timothy Clark PCP: Dr. Miriam Orozco DO Status: REG CLI Study: Chest PA and Lateral Date of Exam: 12/11/24 Exam# [id number] Ordering Dr: Radha Adame PA ADDENDUM by Dr. Manuel Masters MD on 12/12/24 at 0406 . Reading Location: [facility] 12/12/24 0406 Date cc: Dr. Miriam Orozco DO; GWYN Olivares * Signed PROCEDURE: [...] No acute process is seen. Reading Location: [facility] CC: Dr. Miriam Orozco DO; GWYN Olivares Wood Tool Maker: Signed Normal [facility] Chloride assayOrdered By: Neida Adame on 12-11-2024 Chloride [Moles/Vol] 99 mmol/L 98-108 [facility] Eosinophil percentageOrdered By: Radha Adame on 12-11-2024 Eosinophils/100 WBC (Bld) 1.4 % 0-5 [facility] Erythrocyte distribution wid th ratioOrdered By: Radha Adame on 12-11-2024 Erythrocyte distribution width (RBC) [Ratio] 12.2 % 11.6-14.6 [facility] Erythrocyte distribution wid th standard deviationOrdered By: Radha Adame on 12-11-2024 Erythrocyte distribution width (RBC) [Ratio] 40.8 fl 35.1-43.9 [facility] Glomerular filtration rate ( GFR) estimation/1.73 sq m using serum, plasma, or whole bOrdered By: Radha Adame on 12-11-2024 GFR/1.73 sq M.predicted among non-blacks MDRD (S/P/Bld) [Vol rate/Area] 66 mL/min/{1.73_m2} >60 [facility] Comment on above: mL/min/1.73m2 CKD-EP I Creatinine Equation (2020) Hematocrit Auto (Bld) [Volum e fraction]Ordered By: Radha Adame on 12-11-2024 Hematocrit (Bld) [Volume fraction] 38.2 % Low 40-54 [facility] Hemoglobin measurementOrdere d By: Radha Adame on 12-11-2024 Hemoglobin (Bld) [Mass/Vol] 13.0 g/dL 13.0-16.5 [facility] Immature granulocytes/100 WB C Auto (Bld)Ordered By: Radha Adame on 12-11-2024 Immature granulocytes/100 WBC (Bld) 0.900 % 0.0-0.9 [facility] Comment on above: IG% - Immature Granu locytes (promyelocytes, myelocytes and metamyelocytes) > 1% indicates that a LEFT SHIFT is Present. MCV (mean corpuscular volume ) determinationOrdered By: Radha Adame on 12-11-2024 MCV (RBC) [Entitic vol] 91.6 fL 80-94 [facility] Mean corpuscular hemoglobin (MCH) determinationOrdered By: Radha Adame on 12-11-2024 MCH (RBC) [Entitic mass] 31.2 pg 27.0-32.0 [facility] Mean corpuscular hemoglobin concentration (MCHC) determinationOrdered By: Radha Adame on 12-11-2024 MCHC (RBC) [Mass/Vol] 34.0 g/dL 32-36 [facility] Mean platelet volume determi nationOrdered By: Radha Adame on 12-11-2024 Platelet mean volume (Bld) [Entitic vol] 10.4 fL 6.2-12.0 [facility] Monocyte percentageOrdered B y: Radha Adame on 12-11-2024 Monocytes/100 WBC (Bld) 10.1 % High 0-10 [facility] Neutrophil percentageOrdered By: Radha Adame on 12-11-2024 Neutrophils/100 WBC (Bld) 74.8 % High 47-70 [facility] Nucleated red blood cell per centageOrdered By: Radha Adame on 12-11-2024 Nucleated RBC/100 WBC (Bld) [Ratio] 0 % 0-5 [facility] Platelet countOrdered By: Neida Adame on 12-11-2024 Platelets (Bld) [#/Vol] 289 10*3/uL 150-450 [facility] Potassium measurement (mass/ volume)Ordered By: Radha Adame on 12-11-2024 Potassium (Unsp spec) [Mass/Vol] 3.9 mmol/L 3.3-5.1 [facility] Comment on above: Hemolysis present, R esults could be affected. RBC Auto (Bld) [#/Vol]Ordere d By: Radha Adame on 12-11-2024 RBC (Bld) [#/Vol] 4.17 10*6/uL Low 4.6-6.2 [facility] Serum creatinine measurement (mass/volume)Ordered By: Radha Adame on 12-11-2024 Creatinine [Mass/Vol] 1.19 mg/dL 0.70-1.20 [facility] Serum glucose measurement (m ass/volume)Ordered By: Radha Adame on 12-11-2024 Glucose [Mass/Vol] 141 mg/dL High 70-99 [facility] Serum or plasma calcium shea urement (mass/volume)Ordered By: Radha Adame on 12-11-2024 Calcium [Mass/Vol] 9.8 mg/dL 7.6-11.0 [facility] Serum or plasma urea nitroge n measurement (mass/volume)Ordered By: Radha Adame on 12-11-2024 Urea nitrogen [Mass/Vol] 25 mg/dL High 4-19 [facility] Sodium levelOrdered By: Kris Adame on 12-11-2024 Sodium [Moles/Vol] 139 mmol/L 133-145 [facility] White blood cell (WBC) count Ordered By: Radha Adame on 12-11-2024 WBC (Bld) [#/Vol] 8.6 10*3/uL 4.4-11.0 [facility] Cardiovascular stress test r eportOrdered By: Stone Williamson on 12-05-2024 Study report [facility] [address] [place] [address] MR#: [id number] Acct: [id number] Name: RYAN WICK Rep #: [id number] : 1955 69 From: Stone Williamson MD Primary Care: Dr. Miriam Orozco DO Statu s: REG CLI Referring Dr: Miriam Orozco DO Sex: M C Stress Test [...] Date _ Stone Williamson MD CC: Dr. Miriam Orozco, ~ Date Dictated: 12/05/241634 Date Transcribed: 12/05/241634 [employer]: [place] Signed [facility] Work Phone: Stress Reporton 12-05-2024 Stress Report [facility] [address] [place] [id number] MR#: [id number] Acct: [id number] Name: RYAN WICK Rep #: [id number] : 1955 69 From: Stone Williamson MD Primary Care: Dr. Miriam Orozco DO Status: REG CLI Referring Dr: Miriam Orozco DO Sex: M C Stress Test [...] 12/05/241637 Date Stone Williamson MD CC: Dr. Miriam Orozco, DO Date Dictated: 12/05/241634 Date Transcribed: 12/05/241634 [employer]: [place] Signed Normal [facility] CBC W/Diff, Automatedon 10-2 Absolute Lymph 0.84 X10 3/uL Normal 0.83-4.51 [facility] Comment on above: Performed By: #### L 100.0100, L502.0250, L500.4050, L501.9985, L500.4100 #### [facility] [address] [place], [address] Absolute Neut 4.4 X10 3/uL Normal 2.0-7.7 [facility] Comment on above: Performed By: #### L 100.0100, L502.0250, L500.4050, L501.9985, L500.4100 #### [facility] [address] [place], [address] Basophils/100 WBC (Bld) 0.7 % Normal 0-1 [facility] Comment on above: Performed By: #### L 100.0100, L502.0250, L500.4050, L501.9985, L500.4100 #### [facility] [address] [place], [address] Eosinophils/100 WBC (Bld) 2.2 % Normal 0-5 [facility] Comment on above: Performed By: #### L 100.0100, L502.0250, L500.4050, L501.9985, L500.4100 #### [facility] [address] [place], [address] Erythrocyte distribution width (RBC) [Ratio] 12.6 % Normal 11.6-14.6 [facility] Comment on above: Performed By: #### L 100.0100, L502.0250, L500.4050, L501.9985, L500.4100 #### [facility] [address] [place], [address] Hematocrit (Bld) [Volume fraction] 40.0 % Normal 40-54 [facility] Comment on above: Performed By: #### L 100.0100, L502.0250, L500.4050, L501.9985, L500.4100 #### [facility] [address] [place], [address] Hemoglobin (Bld) [Mass/Vol] 13.1 g/dL Normal 13.0-16.5 [facility] Comment on above: Performed By: #### L 100.0100, L502.0250, L500.4050, L501.9985, L500.4100 #### [facility] [address] [place], [address] IG% 0.800 Normal 0.0-0.9 [facility] Comment on above: Result Comment: IG% - Immature Granulocytes (promyelocytes, myelocytes and metamyelocytes) > 1% indicates that a LEFT SHIFT is Present. Performed By: #### L 100.0100, L502.0250, L500.4050, L501.9985, L500.4100 #### [facility] [address] [place], [address] Lymphocytes/100 WBC (Bld) 14.1 % Low 19-41 [facility] Comment on above: Performed By: #### L 100.0100, L502.0250, L500.4050, L501.9985, L500.4100 #### [facility] [address] [place], [address] MCH (RBC) [Entitic mass] 30.5 pg Normal 27.0-32.0 [facility] Comment on above: Performed By: #### L 100.0100, L502.0250, L500.4050, L501.9985, L500.4100 #### [facility] [address] [place], [address] MCHC (RBC) [Mass/Vol] 32.8 g/dL Normal 32-36 [facility] Comment on above: Performed By: #### L 100.0100, L502.0250, L500.4050, L501.9985, L500.4100 #### [facility] [address] [place], [address] MCV (RBC) [Entitic vol] 93.2 fL Normal 80-94 [facility] Comment on above: Performed By: #### L 100.0100, L502.0250, L500.4050, L501.9985, L500.4100 #### [facility] [address] [place], [address] Monocytes/100 WBC (Bld) 9.0 % Normal 0-10 [facility] Comment on above: Performed By: #### L 100.0100, L502.0250, L500.4050, L501.9985, L500.4100 #### [facility] [address] [place], [address] Neutrophils/100 WBC (Bld) 73.2 % High 47-70 [facility] Comment on above: Performed By: #### L 100.0100, L502.0250, L500.4050, L501.9985, L500.4100 #### [facility] [address] [place], [address] Nucleated RBC (Bld) [#/Vol] 0 10*3/uL Normal 0-5 [facility] Comment on above: Performed By: #### L 100.0100, L502.0250, L500.4050, L501.9985, L500.4100 #### [facility] [address] [place], [address] Platelet mean volume (Bld) [Entitic vol] 11.3 fL Normal 6.2-12.0 [facility] Comment on above: Performed By: #### L 100.0100, L502.0250, L500.4050, L501.9985, L500.4100 #### [facility] [address] [place], [address] Platelets (Bld) [#/Vol] 269 10*3/uL Normal 150-450 [facility] Comment on above: Performed By: #### L 100.0100, L502.0250, L500.4050, L501.9985, L500.4100 #### [facility] [address] [place], [address] RBC (Bld) [#/Vol] 4.29 10*6/uL Low 4.6-6.2 [facility] Comment on above: Performed By: #### L 100.0100, L502.0250, L500.4050, L501.9985, L500.4100 #### [facility] [address] [place], [address] RDW SD 43.2 fl Normal 35.1-43.9 [facility] Comment on above: Performed By: #### L 100.0100, L502.0250, L500.4050, L501.9985, L500.4100 #### [facility] [address] [place], [address] WBC (Bld) [#/Vol] 6.0 10*3/uL Normal 4.4-11.0 [facility] Comment on above: Performed By: #### L 100.0100, L502.0250, L500.4050, L501.9985, L500.4100 #### [facility] [address] [place], [address] Comprehensive Metabolic Prof ilon 02-27-2024 Albumin [Mass/Vol] 4.0 g/dL Normal 3.2-5.0 [facility] Comment on above: Performed By: #### L 100.0100, L502.0250, L500.4050, L501.9985, L500.4100 #### [facility] [address] [place], [address] Albumin/Globulin [Mass ratio] 1.1 {ratio} Normal 0.9-2.4 [facility] Comment on above: Performed By: #### L 100.0100, L502.0250, L500.4050, L501.9985, L500.4100 #### [facility] [address] [place], [address] ALK P 68 U/L Normal 45-117 [facility] Comment on above: Performed By: #### L 100.0100, L502.0250, L500.4050, L501.9985, L500.4100 #### [facility] [address] [place], [address] ALT [Catalytic activity/Vol] 28 U/L Normal 16-61 [facility] Comment on above: Performed By: #### L 100.0100, L502.0250, L500.4050, L501.9985, L500.4100 #### [facility] [address] [place], [address] AST [Catalytic activity/Vol] 14 U/L Low 15-37 [facility] Comment on above: Performed By: #### L 100.0100, L502.0250, L500.4050, L501.9985, L500.4100 #### [facility] [address] [place], [address] Bilirubin [Mass/Vol] 0.40 mg/dL Normal 0.20-1.00 [facility] Comment on above: Result Comment: For patients on eltrombopag therapy, use of Dimension [place] TBIL is not recommended. Performed By: #### L 100.0100, L502.0250, L500.4050, L501.9985, L500.4100 #### [facility] [address] [place], [address] BUN/CRE 24.4 RATIO High 10-20 [facility] Comment on above: Performed By: #### L 100.0100, L502.0250, L500.4050, L501.9985, L500.4100 #### [facility] [address] [place], [address] CA,Total 10.0 mg/dL Normal 8.5-10.1 [facility] Comment on above: Performed By: #### L 100.0100, L502.0250, L500.4050, L501.9985, L500.4100 #### [facility] [address] [place], [address] Chloride [Moles/Vol] 105 mmol/L Normal 98-107 [facility] Comment on above: Performed By: #### L 100.0100, L502.0250, L500.4050, L501.9985, L500.4100 #### [facility] [address] [place], [address] CO2 [Moles/Vol] 29.0 mmol/L Normal 21.0-32.0 [facility] Comment on above: Performed By: #### L 100.0100, L502.0250, L500.4050, L501.9985, L500.4100 #### [facility] [address] [place], [address] Creatinine [Mass/Vol] 1.27 mg/dL Normal 0.70-1.30 [facility] Comment on above: Result Comment: The validity of the calculated GFR GFRAA in patients over 70 years has not been determined. Clinical correlation is essential. Performed By: #### L 100.0100, L502.0250, L500.4050, L501.9985, L500.4100 #### [facility] [address] [place], [address] EST GFR - AA 72 mL/min Normal >60 [facility] Comment on above: Result Comment: Afri can Citizen [place] GFR Calc Performed By: #### L 100.0100, L502.0250, L500.4050, L501.9985, L500.4100 #### [facility] [address] [place], [address] GAP 6 Normal 5-15 [facility] Comment on above: Performed By: #### L 100.0100, L502.0250, L500.4050, L501.9985, L500.4100 #### [facility] [address] [place], [place], [address] GFR/1.73 sq M.predicted among non-blacks MDRD (S/P/Bld) [Vol rate/Area] 60 mL/min/{1.73_m2} Normal >60 [facility] Comment on above: Result Comment: Non- GFR Calc Performed By: #### L 100.0100, L502.0250, L500.4050, L501.9985, L500.4100 #### [facility] [address] [place], [place], [address] Globulin (S) [Mass/Vol] 3.5 g/dL Normal 2.2-4.2 [facility] Comment on above: Performed By: #### L 100.0100, L502.0250, L500.4050, L501.9985, L500.4100 #### [facility] [address] [place], [address] Glucose [Mass/Vol] 158 mg/dL High 74-106 [facility] Comment on above: Result Comment: Fast ing Glucose result greater than or equal to 126 mg/dL suggests DIABETES MELLITUS per A.D.A. criteria. Performed By: #### L 100.0100, L502.0250, L500.4050, L501.9985, L500.4100 #### [facility] [address] [place], [address] Potassium [Moles/Vol] 4.6 mmol/L Normal 3.5-5.1 [facility] Comment on above: Performed By: #### L 100.0100, L502.0250, L500.4050, L501.9985, L500.4100 #### [facility] [address] [place], [address] Sodium [Moles/Vol] 141 mmol/L Normal 136-145 [facility] Comment on above: Performed By: #### L 100.0100, L502.0250, L500.4050, L501.9985, L500.4100 #### [facility] [address] [place], [address] T PROT 7.5 g/dL Normal 6.4-8.2 [facility] Comment on above: Performed By: #### L 100.0100, L502.0250, L500.4050, L501.9985, L500.4100 #### [facility] [address] [place], [address] Urea nitrogen [Mass/Vol] 31 mg/dL High 7-18 [facility] Comment on above: Performed By: #### L 100.0100, L502.0250, L500.4050, L501.9985, L500.4100 #### [facility] [address] [place], [address] Hemoglobin A1con 02-27-2024 HbA1c (Bld) [Mass fraction] 7.1 % High 3.8-5.6 [facility] Comment on above: Result Comment: Norm al < 5.7 % Prediabetic 5.7 - 6.4 % Diabetic >or= 6.5 % Please note range changes. Performed By: #### L 100.0100, L502.0250, L500.4050, L501.9985, L500.4100 #### [facility] [address] [place], [address] Lipid Profileon 02-27-2024 Cholesterol [Mass/Vol] 195 mg/dL Normal 200 [facility] Comment on above: Result Comment: <200 mg/dL Desirable 200-240 mg/dL Borderline >240 mg/dL High Risk Performed By: #### L 100.0100, L502.0250, L500.4050, L501.9985, L500.4100 ####[facility] [address] [place], [address] Cholesterol in HDL [Mass/Vol] 44 mg/dL Normal [facility] Comment on above: Result Comment: The drugs N-Acetylcysteine and Metamizole may falsely depress this assay. Reference Range HDL <40 mg/dL Low HDL Cholesterol HDL >or= 60 mg/dL High HDL Cholesterol Performed By: #### L 100.0100, L502.0250, L500.4050, L501.9985, L500.4100 ####[facility] [address] [place], [address] Cholesterol in LDL [Mass/Vol] 132 mg/dL High 0-130 [facility] Comment on above: Performed By: #### L 100.0100, L502.0250, L500.4050, L501.9985, L500.4100 ####[facility] [address] [place], [address] Cholesterol in VLDL [Mass/Vol] 19 mg/dL Normal 5-40 [facility] Comment on above: Performed By: #### L 100.0100, L502.0250, L500.4050, L501.9985, L500.4100 ####[facility] [address] [place], [address] Triglyceride [Mass/Vol] 97 mg/dL Normal [facility] Comment on above: Result Comment: The drugs N-Acetylcysteine and Metamizole may falsely depress this assay. Serum Triglycerides Reference Interval Normal <150 mg/dL Borderline high 150 - 199 mg/dL High 200 - 499 mg/dL Very High > or = 500 mg/dL Performed By: #### L 100.0100, L502.0250, L500.4050, L501.9985, L500.4100 ####[facility] [address] [place], [address] Microalb:Creat Ratio,Random URon 02-27-2024 Creatinine [Mass/Vol] 128.00 mg/dL Normal NO RAN GE EST. [facility] Comment on above: Performed By: #### L 100.0100, L502.0250, L500.4050, L501.9985, L500.4100 ####[facility] [address] [place], [address] MALB:CRE 5.0 mg/g CRE Normal <30 mg/g CRE [facility] Comment on above: Performed By: #### L 100.0100, L502.0250, L500.4050, L501.9985, L500.4100 ####[facility] [address] [place], [address] MICROALBUMIN,UR 6.5 mg/L Normal NO RANGE EST. [facility] Comment on above: Performed By: #### L 100.0100, L502.0250, L500.4050, L501.9985, L500.4100 ####[facility] [address] [place], [address] Absolute lymphocyte countOrd ered By: Miriam Orozco on 02-23-2023 Lymphocytes Auto (Unsp spec) [#/Vol] 0.70 10*3/uL 0.83-4.51 [facility] Basophil percentageOrdered B y: Miriam Orozco on 02-23-2023 Basophils/100 WBC (Bld) 0.3 % 0-1 [facility] Bilirubin [Mass/Vol] 0.50 mg/dL 0.20-1.00 [facility] Comment on above: For patients on eltr ombopag therapy, use of Dimension [place] TBIL is not recommended. Chloride [Moles/Vol] 103 mmol/L 98-107 [facility] Cholesterol [Mass/Vol] 174 mg/dL <200 [facility] Comment on above: <200 mg/dL Desirable 200-240 mg/dL Borderline >240 mg/dL High Risk Eosinophils/100 WBC (Bld) 2.5 % 0-5 [facility] Glucose [Mass/Vol] 141 mg/dL 74-106 [facility] Comment on above: Fasting Glucose resu lt greater than or equal to 126 mg/dL suggests DIABETES MELLITUS per A.D.A. criteria. Neutrophils (Bld) [#/Vol] 4.5 10*3/uL 2.0-7.7 [facility] Neutrophils/100 WBC (Bld) 75.0 % 47-70 [facility] Potassium [Moles/Vol] 3.5 mmol/L 3.5-5.1 [facility] Protein [Mass/Vol] 7.5 g/dL 6.4-8.2 [facility] Sodium [Moles/Vol] 139 mmol/L 136-145 [facility] Triglyceride [Mass/Vol] 133 mg/dL <199 [facility] Comment on above: The drugs N-Acetylcy steine and Metamizole may falsely depress this assay.Serum Triglycerides Reference Interval Normal <150 mg/dL Borderline high 150 - 199 mg/dL High 200 - 499 mg/dL Very High > or = 500 mg/dL WBC (Bld) [#/Vol] 6.0 10*3/uL 4.4-11.0 [facility] Blood erythrocytes count (nu mber/volume)Ordered By: Miriam Orozco on 02-23-2023 RBC (Bld) [#/Vol] 4.37 10*6/uL 4.6-6.2 [facility] Blood hemoglobin measurement (mass/volume)Ordered By: Miriam Orozco on 02-23-2023 Hemoglobin (Bld) [Mass/Vol] 13.3 g/dL 13.0-16.5 [facility] Blood lymphocytes/100 leukoc ytesOrdered By: Miriam Orozco on 02-23-2023 Lymphocytes/100 WBC (Bld) 11.7 % 19-41 [facility] Blood monocytes/100 leukocyt esOrdered By: Miriam Orozco on 02-23-2023 Monocytes/100 WBC (Bld) 10.0 % 0-10 [facility] Blood platelet mean volumeOr dered By: Miriam Orozco on 02-23-2023 Platelet mean volume (Bld) [Entitic vol] 10.8 fL 6.2-12.0 [facility] Determination of erythrocyte mean corpuscular volume (MCV)Ordered By: Miriam Orozco on 02-23-2023 MCV (RBC) [Entitic vol] 92.4 fL 80-94 [facility] Hematocrit Auto (Bld) [Volum e fraction]Ordered By: Miriam Orozco on 02-23-2023 Hematocrit (Bld) [Volume fraction] 40.4 % 40-54 [facility] - Chemistry and C hemistry - challengeOrdered By: Miriam Orozco on 02-23-2023 ALP [Catalytic activity/Vol] 72 U/L 45-117 [facility] ALT [Catalytic activity/Vol] 36 U/L 16-61 [facility] CO2 [Moles/Vol] 30.0 mmol/L 21.0-32.0 [facility] Cobalamin (Vitamin B12) [Mass/Vol] 445 pg/mL 211-911 [facility] Free T4 [Mass/Vol] 1.09 ng/dL 0.76-1.46 [facility] Globulin (S) [Mass/Vol] 3.7 g/dL 2.2-4.2 [facility] Urea nitrogen/Creatinine [Mass ratio] 15.7 mg/mg 10-20 [facility] - Hematology and Cell countsOrdered By: Miriam Orozco on 02-23-2023 Erythrocyte distribution width (RBC) [Entitic vol] 41.1 fL 35.1-43.9 [facility] Erythrocyte distribution width (RBC) [Ratio] 12.2 % 11.6-14.6 [facility] Immature granulocytes/100 WBC (Bld) 0.500 % 0.0-0.9 [facility] Comment on above: IG% - Immature Granu locytes (promyelocytes, myelocytes and metamyelocytes) > 1% indicates that a LEFT SHIFT is Present. MCH (RBC) [Entitic mass] 30.4 pg 27.0-32.0 [facility] Nucleated RBC/100 WBC (Bld) [Ratio] 0 % 0-5 [facility] MCHC Auto (RBC) [Mass/Vol]Or dered By: Miriam Orozco on 02-23-2023 MCHC (RBC) [Mass/Vol] 32.9 g/dL 32-36 [facility] No Panel InformationOrdered By: Miriam Orozco on 02-23-2023 Estimated GFR (MDRD) Amer 77 mL/min >60 [facility] Comment on above: GFR Calc Estimated GFR (MDRD) Non-Af Amer 63 mL/min >60 [facility] Comment on above: Non- GFR Calc Prostate Specific Antigen Screen 2.98 ng/mL 0.00-4.00 [facility] Comment on above: This test was perfor med using the TPSA assay method for the[facility] chemistry system. Values obtained with differentassay methods cannot be used interchangably.When changing PSA assays in the course of monitoring apatient, additional sequential testing should be carriedout to confirm baseline values. Thyroid Stimulating Hormone (TSH) 1.17 uIU/mL 0.358-3.74 [facility] Urine Microalbumin/Creatinine Ratio 3.8 mg/g CRE <30 [facility] Platelets bldOrdered By: Jaylin Orozco on 02-23-2023 Platelets (Bld) [#/Vol] 268 10*3/uL 150-450 [facility] Serum or plasma albumin shea urement (mass/volume)Ordered By: Miriam Orozco on 02-23-2023 Albumin [Mass/Vol] 3.8 g/dL 3.2-5.0 [facility] Serum or plasma albumin/glob ulin mass ratioOrdered By: Miriam Orozco on 02-23-2023 Albumin/Globulin [Mass ratio] 1.0 {ratio} 0.9-2.4 [facility] Serum or plasma calcium shea urement (mass/volume)Ordered By: Miriam Orozco on 02-23-2023 Calcium [Mass/Vol] 9.4 mg/dL 8.5-10.1 [facility] Serum or plasma cholesterol in HDL measurement (mass/volume)Ordered By: Miriam Orozco on 02-23-2023 Cholesterol in HDL [Mass/Vol] 37 mg/dL >40 [facility] Comment on above: The drugs N-Acetylcy steine and Metamizole may falsely depress this assay. Reference Range HDL <40 mg/dL Low HDL Cholesterol HDL >or= 60 mg/dL High HDL Cholesterol Serum or plasma cholesterol in VLDL measurement (mass/volume)Ordered By: Miriam Orozco on 02-23-2023 Cholesterol in VLDL [Mass/Vol] 27 mg/dL 5-40 [facility] Serum or plasma creatinine m easurement (mass/volume)Ordered By: Miriam Orozco on 02-23-2023 Creatinine [Mass/Vol] 1.21 mg/dL 0.70-1.30 [facility] Comment on above: The validity of the calculated GFR & GFRAA in patients over 70 years has not been determined. Clinical correlation is essential. Serum or plasma low density lipoprotein (LDL) cholesterol measurement (mass/volume)Ordered By: Miriam Orozco on 02-23-2023 Cholesterol in LDL [Mass/Vol] 110 mg/dL 0-130 [facility] Serum or plasma urea nitroge n measurement (mass/volume)Ordered By: Miriam Orozco on 02-23-2023 Urea nitrogen [Mass/Vol] 19 mg/dL 7-18 [facility] Thin prep Papanicolaou smear with manual screeningOrdered By: Miriam Orozco on 02-23-2023 Thin prep Papanicolaou smear with manual screening 17 U/L 15-37 [facility] Thin prep Papanicolaou smear with manual screening 6 5-15 [facility] Thin prep Papanicolaou smear with manual screening 9.7 mg/L NO RANGE EST. [facility] Urine creatinine measurement (mass/volume)Ordered By: Miriam Orozco on 02-23-2023 Creatinine (U) [Mass/Vol] 253.00 mg/dL NO RANGE EST. [facility] Whole blood hemoglobin A1c/t otal hemoglobin ratio (mass fraction)Ordered By: Miriam Orozco on 02-23-2023 HbA1c (Bld) [Mass fraction] 6.7 % 3.8-5.6 [facility] Comment on above: Normal < 5.7 % Predi abetic 5.7 - 6.4 % Diabetic >or= 6.5 % Please note range changes. Absolute lymphocyte counton 02-15-2022 Lymphocytes Auto (Unsp spec) [#/Vol] 0.57 10*3/uL 0.83-4.51 [facility] Work Phone: Basophil percentageon 2021 Basophils/100 WBC (Bld) 1.0 % 0-1 [facility] Work Phone: Bilirubin [Mass/Vol] 0.60 mg/dL 0.20-1.00 [facility] Work Phone: Comment on above: For patients on eltr ombopag therapy, use of Dimension [place] TBIL is not recommended. Chloride [Moles/Vol] 103 mmol/L 98-107 [facility] Work Phone: Cholesterol [Mass/Vol] 198 mg/dL <200 [facility] Work Phone: Comment on above: <200 mg/dL Desirable 200-240 mg/dL Borderline >240 mg/dL High Risk Eosinophils/100 WBC (Bld) 3.8 % 0-5 [facility] Work Phone: Glucose [Mass/Vol] 152 mg/dL 74-106 [facility] Work Phone: Comment on above: Fasting Glucose resu lt greater than or equal to 126 mg/dL suggests DIABETES MELLITUS per A.D.A. criteria. Neutrophils (Bld) [#/Vol] 2.9 10*3/uL 2.0-7.7 [facility] Work Phone: Neutrophils/100 WBC (Bld) 69.9 % 47-70 [facility] Work Phone: [phone] Potassium [Moles/Vol] 4.3 mmol/L 3.5-5.1 [facility] Work Phone: [phone] Protein [Mass/Vol] 7.6 g/dL 6.4-8.2 [facility] Work Phone: [phone] Sodium [Moles/Vol] 139 mmol/L 136-145 [facility] Work Phone: [phone] Triglyceride [Mass/Vol] 119 mg/dL <199 [facility] Work Phone: [phone] Comment on above: The drugs N-Acetylcy steine and Metamizole may falsely depress this assay.Serum Triglycerides Reference Interval Normal <150 mg/dL Borderline high 150 - 199 mg/dL High 200 - 499 mg/dL Very High > or = 500 mg/dL WBC (Bld) [#/Vol] 4.2 10*3/uL 4.4-11.0 [facility] Work Phone: Blood erythrocytes count (nu mber/volume)on 02-15-2022 RBC (Bld) [#/Vol] 4.46 10*6/uL 4.6-6.2 [facility] Work Phone: Blood hemoglobin measurement (mass/volume)on 02-15-2022 Hemoglobin (Bld) [Mass/Vol] 13.6 g/dL 13.0-16.5 [facility] Work Phone: Blood lymphocytes/100 leukoc yteson 02-15-2022 Lymphocytes/100 WBC (Bld) 13.6 % 19-41 [facility] Work Phone: Blood manual differential co mment interpretation (narrative result)on 02-15-2022 Manual differential comment Toby (Bld) [Interp] See comment [facility] Work Phone: Comment on above: LYMPHOPENIA NOTED Blood monocytes/100 leukocyt eson 02-15-2022 Monocytes/100 WBC (Bld) 11.2 % 0-10 [facility] Work Phone: Blood platelet adequacy dete ction by light microscopyon 02-15-2022 Platelets LM Ql (Bld) ADEQUATE ADEQ [facility] Work Phone: Blood platelet mean volumeon 02-15-2022 Platelet mean volume (Bld) [Entitic vol] 11.1 fL 6.2-12.0 [facility] Work Phone: Determination of erythrocyte mean corpuscular volume (MCV)on 02-15-2022 MCV (RBC) [Entitic vol] 92.8 fL 80-94 [facility] Work Phone: Hematocrit Auto (Bld) [Volum e fraction]on 02-15-2022 Hematocrit (Bld) [Volume fraction] 41.4 % 40-54 [facility] Work Phone: Laboratory - Chemistry and C hemistry - challengeon 02-15-2022 ALP [Catalytic activity/Vol] 60 U/L 45-117 [facility] Work Phone: ALT [Catalytic activity/Vol] 36 U/L 16-61 [facility] Work Phone: CO2 [Moles/Vol] 28.0 mmol/L 21.0-32.0 [facility] Work Phone: Globulin (S) [Mass/Vol] 3.6 g/dL 2.2-4.2 [facility] Work Phone: Urea nitrogen/Creatinine [Mass ratio] 15.2 mg/mg 10-20 [facility] Work Phone: Laboratory - Hematology and Cell countson 02-15-2022 Erythrocyte distribution width (RBC) [Entitic vol] 41.3 fL 35.1-43.9 [facility] Work Phone: Erythrocyte distribution width (RBC) [Ratio] 12.1 % 11.6-14.6 [facility] Work Phone: Immature granulocytes/100 WBC (Bld) 0.500 % 0.0-0.9 [facility] Work Phone: Comment on above: IG% - Immature Granu locytes (promyelocytes, myelocytes and metamyelocytes) > 1% indicates that a LEFT SHIFT is Present. MCH (RBC) [Entitic mass] 30.5 pg 27.0-32.0 [facility] Work Phone: Nucleated RBC/100 WBC (Bld) [Ratio] 0 % 0-5 [facility] Work Phone: MCHC Auto (RBC) [Mass/Vol]on 02-15-2022 MCHC (RBC) [Mass/Vol] 32.9 g/dL 32-36 [facility] Work Phone: No Panel Informationon 02-15 Estimated GFR (MDRD) Amer 84 mL/min >60 [facility] Work Phone: Comment on above: GFR Calc Estimated GFR (MDRD) Non-Af Amer 69 mL/min >60 [facility] Work Phone: Comment on above: Non- GFR Calc Prostate Specific Antigen Screen 3.19 ng/mL 0.00-4.00 [facility] Work Phone: Comment on above: This test was perfor med using the TPSA assay method for the[employer] chemistry system. Values obtained with differentassay methods cannot be used interchangably.When changing PSA assays in the course of monitoring apatient, additional sequential testing should be carriedout to confirm baseline values. Urine Microalbumin/Creatinine Ratio 3.6 mg/g CRE <30 [facility] Work Phone: Platelets bldon 02-15-2022 Platelets (Bld) [#/Vol] 251 10*3/uL 150-450 [facility] Work Phone: RBC morphologyon 02-15-2022 RBC morphology finding Nom (Bld) NORM C+C NORMAL NORM C&C [facility] Work Phone: Review by pathologiston 02-05 Pathologist review Toby (Unsp spec) [Interp] Reviewed [facility] Work Phone: Comment on above: Previous reported re sult: Karime petit Edited by: RGOOD on 02/16/22:1339 AMENDED REPORT 02/16/22 993 PATH REV previously reported as: Karime petit Serum or plasma albumin shea urement (mass/volume)on 02-15-2022 Albumin [Mass/Vol] 4.0 g/dL 3.2-5.0 [facility] Work Phone: Serum or plasma albumin/glob ulin mass ratioon 02-15-2022 Albumin/Globulin [Mass ratio] 1.1 {ratio} 0.9-2.4 [facility] Work Phone: Serum or plasma calcium shea urement (mass/volume)on 02-15-2022 Calcium [Mass/Vol] 9.7 mg/dL 8.5-10.1 [facility] Work Phone: Serum or plasma cholesterol in HDL measurement (mass/volume)on 02-15-2022 Cholesterol in HDL [Mass/Vol] 40 mg/dL >40 [facility] Work Phone: Comment on above: The drugs N-Acetylcy steine and Metamizole may falsely depress this assay. Reference Range HDL <40 mg/dL Low HDL Cholesterol HDL >or= 60 mg/dL High HDL Cholesterol Serum or plasma cholesterol in VLDL measurement (mass/volume)on 02-15-2022 Cholesterol in VLDL [Mass/Vol] 24 mg/dL 5-40 [facility] Work Phone: Serum or plasma creatinine m easurement (mass/volume)on 02-15-2022 Creatinine [Mass/Vol] 1.12 mg/dL 0.70-1.30 [facility] Work Phone: Comment on above: The validity of the calculated GFR & GFRAA in patients over 70 years has not been determined. Clinical correlation is essential. Serum or plasma low density lipoprotein (LDL) cholesterol measurement (mass/volume)on 02-15-2022 Cholesterol in LDL [Mass/Vol] 134 mg/dL 0-130 [facility] Work Phone: Serum or plasma urea nitroge n measurement (mass/volume)on 02-15-2022 Urea nitrogen [Mass/Vol] 17 mg/dL 7-18 [facility] Work Phone: Thin prep Papanicolaou smear with manual screeningon 02-15-2022 Thin prep Papanicolaou smear with manual screening 16 U/L 15-37 [facility] Work Phone: Thin prep Papanicolaou smear with manual screening 8 5-15 [facility] Work Phone: Thin prep Papanicolaou smear with manual screening 9.4 mg/L NO RANGE EST. [facility] Work Phone: Urine creatinine measurement (mass/volume)on 02-15-2022 Creatinine (U) [Mass/Vol] 257.00 mg/dL NO RANGE EST. [facility] Work Phone: Whole blood hemoglobin A1c/t otal hemoglobin ratio (mass fraction)on 02-15-2022 HbA1c (Bld) [Mass fraction] 6.6 % 3.8-5.6 [facility] Work Phone: Comment on above: Normal < 5.7 % Predi abetic 5.7 - 6.4 % Diabetic >or= 6.5 % Please note range changes. Vital Signs Date Time Vital Sign Value Performing Clinician Celio peguero 01-14-2025 08:02-0400 Diastolic blood pressure 77 mm[Hg] Ronnie Herrera MD Work Phone: [email or web address] 01-14-2025 08:02-0400 Heart rate 67 /min Ronnie Herrera MD Work Phone: [email or web address] 01-14-2025 08:02-0400 Systolic blood pressure 142 mm[Hg] Ronnie Herrera MD Work Phone: [employer] 01-14-2025 07:59-0400 Body height 193 cm Ronnie Herrera MD Work Phone: [email or web address] 01-14-2025 07:59-0400 Body mass index (BMI) [Ratio] 24.59 kg/m2 Ronnie Herrera MD Work Phone: [facility] 01-14-2025 07:59-0400 Body weight 91.63 kg Ronnie Herrera MD Work Phone: [facility] 12-25-2024 07:14-0400 Body height 193.[address] Miriam Orozco DO Work Phone: [facility] 12-25-2024 07:14-0400 Body weight 91.[address] Miriam Orozco DO Work Phone: [facility] 12-24-2024 07:58-0400 Body mass index (BMI) [Ratio] 24.5 kg/m2 Dr. Miriam Orozco DO Work Phone: [facility] 12-11-2024 08:01-0400 Body height 193.[address] Miriam Orozco DO Work Phone: [facility] 12-11-2024 08:01-0400 Body mass index (BMI) [Ratio] 24.5 kg/m2 Dr. Miriam Orozco DO Work Phone: [facility] 12-11-2024 08:01-0400 Body weight 91.[address] Miriam Orozco DO Work Phone: [facility] 12-11-2024 08:01-0400 Diastolic blood pressure 72 mm[Hg] Dr. Miriam Orozco DO Work Phone: [facility] 12-11-2024 08:01-0400 Heart rate 77 /min Dr. Miriam Orozco DO Work Phone: [facility] 12-11-2024 08:01-0400 Respiratory rate 18 /min Dr. Miriam Orozco DO Work Phone: [facility] 12-11-2024 08:01-0400 Systolic blood pressure 127 mm[Hg] Dr. Miriam Orozco DO Work Phone: [facility] Encounters Encounter Date Encounter Type Care Provider Facility Start: 02-24-2025 ambulatory Miriam Orozco Facility: [facility] Start: 01-23-2025 ambulatory Miriam IslasPam Facility: [facility] Start: 01-20-2025 End: 01-20-2025 ambulatory RONNIE HERRERA [facility] Start: 01-16-2025 End: 01-16-[address] Miriam Orozco DO Work Phone: -Cardiovascular Services Start: 01-16-2025 End: 01-16-[address] Ronnie Herrera MD -Cardiovascular Services Work Phone: Start: 01-16-2025 End: 01-16-2025 ambulatory Miriam Pam Facility:[facility] Start: 01-14-2025 End: 01-14-2025 Admission to same day surgery center Angela Mandel [employer] HE[employer] NURSE PRACTITIONER - [employer] Work Phone: [facility] Thor[facility] Comment on above: CAD in [place] artery (Primary Dx); Coronary artery disease due to calcified coronary lesion Start: 01-14-2025 End: 01-14-2025 Telephone encounter Ronnie Herrera MD Work Phone: [facility] Comment on above: Surgery Scheduling Start: 01-14-2025 End: 01-14-2025 Office outpatient new 60 minutes Ronnie Herrera MD Work Phone: [facility] Comment on above: Coronary artery dise ase due to calcified coronary lesion (Primary Dx); Type 2 diabetes mellitus with other circulatory complication, with long-term current use of insulin (HCC) Start: 01-14-2025 End: 01-14-2025 ambulatory Angeal Mandel [employer] N[employer]SE PRACTITIONER - [employer] Work Phone: [facility] Thoracic Surgery - [place] Start: 12-25-2024 Non-patient / Non-visit Dr. Stone Williamson MD -[facility] Start: 12-25-[address] Miriam garces DO Work Phone: -[facility] Start: 12-25-2024 End: 12-25-2024 Admission to same day surgery center Dr. Stone Williamson MD -[facility]/Special Procedures Work Phone: Start: 12-25-2024 End: 12-25-[address] Miriam Orozco DO Work Phone: -[facility]/Special Procedures Start: 12-11-2024 End: 12-11-[address] Miriam Orozco DO Work Phone: -Radiology [facility] Start: 12-11-2024 End: 12-11-2024 Patient encounter procedure Radha Adame PA -Radiology [facility] Work Phone: Start: 12-11-2024 End: 12-11-2024 Patient encounter procedure Radha Adame PA -[facility] Work Phone: Start: 12-11-2024 End: 12-11-[address] Miriam Orozco DO Work Phone: -[facility] Start: 12-11-2024 End: 12-11-2024 ambulatory Miriam Pam Facility:[facility] Start: 12-05-2024 ambulatory Miriam [facility] Facility: [facility] Start: 12-05-2024 Non-patient / Non-visit Dr. Stone Williamson MD -[facility] Start: 12-05-2024 End: 12-05-[address] Miriam Orozco DO Work Phone: -Cardiovascular Services Start: 12-05-2024 End: 12-05-[address] Miriam Orozco DO -Cardiovascular Services Work Phone: Start: 12-05-2024 End: 12-05-2024 ambulatory Miriam Orozco Facility:[facility] Start: 02-27-2024 End: 02-27-2024 ambulatory Miriam [facility] Facility:[facility] Start: 02-23-2023 End: 02-23-2023 ambulatory [facility] Work Phone: Start: 02-23-2023 End: 02-23-2023 Patient encounter procedure [facility]-Kelvin Crowder [facility] Start: 02-15-2022 End: 02-15-2022 ambulatory [facility] Work Phone: Start: 02-15-2022 End: 02-15-2022 Patient encounter procedure [facility]-Laboratory, Kelvin Warren [facility] Procedures Date Procedure Procedure Detail Performing Clinician Start: 12-11-2024 X-ray of chest, PA a nd lateral views Dr. Miriam Orozco DO Work Phone: Plan of Treatment Date Care Activity Detail Author Start: 01-27-2025 End: 01-27-2025 Admission to same day surgery center 01/27/2025 7:30 AM EDT - 01/27/2025 12:30 PM EDT Surgery [facility] MAIN [place] [address] [place] [address] Ronnie Herrera MD [address] [address] CORONARY ARTERY BYPASS GRAFT [34389 (CPT )] [facility] Comment on above: CORONARY ARTERY BYPA SS GRAFT [36841 (CPT )] Start: 01-27-2025 End: 01-27-2025 Cabg w/arterial graft three arterial grafts CORONARY ARTERY BYPASS GRAFT Atherosclerotic heart disease of [place] coronary artery with other forms of angina pectoris (HCC) 01/27/2025 7:30 AM EDT [facility] Operating Room Start: 01-27-2025 End: 01-27-2025 Echo transesophag r-t 2d w/prb img acquisj i&r ECHOCARDIOGRAM, TRANSESOPHAGEAL Atherosclerotic heart disease of [place] coronary artery with other forms of angina pectoris (HCC) 01/27/2025 7:30 AM EDT [facility] Operating Room Start: 01-27-2025 Subsequent hospital visit by physician 01/27/2025 7:30 AM EDT Hospital Encounter [facility] MA[facility] OR [address] [place] [address] Ronnie Herrera MD [address] [address] [facility] OR Start: 01-20-2025 End: 01-20-2025 Admission to establishment 01/20/2025 10:00 AM EDT Pre-Admission Testing [facility] Pre-Admit Testing [address] [place] [address] Ronnie Herrera MD [address] [place] [address] [facility] Pre-Admit Testing Start: 01-06-2025 COVID-19 Vaccine ( season) COVID-19 Vaccine ( season) [facility] Start: 01-06-2025 Influenza vaccination Influenza Vacc ine (#1) [facility] Start: 12-25-2024 Patient discharge [facility] Start: 2014 RSV Immunization for Adults (1 - Risk 60-74 years 1-dose series) RSV Immunization for Adults (1 - Risk 60-74 years 1-dose series) [facility] Start: 2004 Zoster Vaccines (1 o f 2) Zoster Vaccines (1 of 2) [facility] Start: 1973 DTaP/Tdap/Td Vaccine s (1 - Tdap) DTaP/Tdap/Td Vaccines (1 - Tdap) [facility] Start: 1972 Diabetes: Estimated Glomerular Filtration Rate for [facility]ney Health Diabetes: Estimated Glomerular Filtration Rate for Kidney Health [facility] Start: 1972 Diabetes: Urine Albumin-Creatinine Ratio for Kidney Health Diabetes: Urine Albumin-Creatinine Ratio for Kidney Health [facility] Start: 1972 Hepatitis C screening Hepatitis C Sc reening [facility] Start: 1966 Depression Screening Depression Scre ening [facility] Start: 1964 Diabetic foot examination Diabetes: Foot Exam [facility] Start: 1964 Glaucoma screening Diabetes: R etinopathy Screening [facility] Start: 1964 Preventive dental service Diabetes: Dental Exam [facility] Start: 1954 Hemoglobin A1c measurement Diabetes: Hemoglobin A1C [facility] Start: 1954 Lipid panel Lipid Panel [facility] Start: 1954 Medicare Annual Wellness (AWV) Medicare Annual Wellness (AWV) [facility] Start: 1954 Screening for malign ant neoplasm of colon [facility] Basic metabolic 2008 panel with ionized calcium - Serum or Plasma [facility] CBC W Auto Different ial panel - Blood [facility] US Carotid arteries [facility] XR Chest PA and Lateral os [facility] Immunizations Immunization Date Immunization Notes Care Provider Anupam luis 01-11-2024 influenza virus vacc ine, unspecified formulation Ronnie Herrera MD Work Phone: [email or web address] Payers Date Payer Category Payer Medicare supplementa l policy (as second payer) MMO MEDICARE SUPPLEMENT [id number] 2024 Self-pay [id number] 2024 Unknown [id number] 2019 Medicare MEDICARE PART A AND B [id number] 2019 Medicare [id number] 2015 Unknown [id number] Unknown [id number] Unknown [id number] Unknown [id number] Unknown [id number] Unknown [id number] Unknown [id number] Unknown [id number] Unknown [id number] Unknown [id number] Unknown [id number] Unknown [id number] Social History Date Type Detail Facility Start: 11-15-2020 Tobacco smoking stat [facility] Unknown if ever smoked [facility] Start: 1955 Sex Assigned At Male [facility] Start: 11-15-2020 End: 12-25-2024 Tobacco smoking status VAIS Never smoked tobacco (finding) [facility] Start: 01-14-2025 Tobacco use and exposure Smokeless tobacco non-user [facility] Start: 01-14-2025 Alcoholic beverage intake Lifetime non-drinker (finding) [facility] Start: 01-14-2025 History of Social function [facility] Start: 01-14-2025 Tobacco use panel [facility] Start: 1955 Sex assigned at Not on file [facility] Start: 12-06-2021 Sex Male (finding) [facility] Clinical Notes 12-11-2024 to 01-14-2025 Telephone Encounter - Angela Mandel, [employer] NURSE PRACTITIONER - [employer]IAN LOC[employer]IVE - 01/14/2025 11:09 AM EDTTelephone Encounter - Angela HARMONY Aranda CNP - 01/14/2025 11:09 AM EDT Note Date & Type Note Facility 01-14-2025 Telephone encounter Note Surg proc orders placed Angela HARMONY Aranda CNP 01/14/25 [facility] 01-14-2025 Miscellaneous Notes Surg proc orders placed Angela HARMONY Aranda CNP 01/14/25 Prep for Procedure Order Request: 01/14/25 Surgeon: Herrera Surgery/Procedure: CABG,ANA M Diagnosis: CAD Plan Admit: yes PAT Appointment: TBS Date if yes: Phone call Date of Surgery/Procedure: 01/27/25 7:30 am Medications: [] Hold as directed by CTS: [x] Per PAT protocol Medication needed prescribed: [] None [x] Nasal ointment and mouth rinse [] Other: documented in this encounter [facility] 01-14-2025 Note Prep for Procedure O rder Request: 01/14/25 Surgeon: Herrera Surgery/Procedure: CABG,ANA M Diagnosis: CAD Plan Admit: yes PAT Appointment: TBS Date if yes: Phone call Date of Surgery/Procedure: 01/27/25 7:30 am Medications: [] Hold as directed by CTS: [x] Per PAT protocol Medication needed prescribed: [] None [x] Nasal ointment and mouth rinse [] Other: [facility] 01-14-2025 Telephone encounter Note Prep for Procedure Order Request: 01/14/25 Surgeon: Herrera Surgery/Procedure: CABG,ANA M Diagnosis: CAD Plan Admit: yes PAT Appointment: TBS Date if yes: Phone call Date of Surgery/Procedure: 01/27/25 7:30 am Medications: [] Hold as directed by CTS: [x] Per PAT protocol Medication needed prescribed: [] None [x] Nasal ointment and mouth rinse [] Other: [facility] 01-14-2025 Note Orders Placed This E ncounter Procedures Transthoracic echocardiogram (TTE) complete with contrast, bubble, strain, and 3D PRN Standing Status: Future Expected Date: 01/14/2025 Expiration Date: 01/14/2027 Contrast Enhancement (Bubble Study, Definity, Optison) may be used if criteria listed in established evidence-based protocol has been identified.: Contrast and bubble study per evidence based protocol Vascular US carotid artery duplex bilateral Standing Status: Future Expected Date: 01/14/2025 Expiration Date: 01/14/2027 [facility] 01-14-2025 History of Presen t illness Narrative Images from the original note were not included. [facility] CARDIOVASCULAR & THORACIC SURGERY [address] [facility] [address] Dept: [phone] Dept Loc: [phone] Visit type: New Reason for Visit: Multivessel coronary artery disease-evaluate for CABG Assessment and plan 69-year-old patient with diabetes mellitus who has had exertional dyspnea underwent a stress test which was abnormal. A subsequent cardiac catheterization revealed multivessel coronary artery disease with a chronically occluded right coronary artery (with collateral reconstitution via [id number] collaterals), and 90% stenosis at the ostium of an obtuse marginal branch of the circumflex coronary artery, and a 70% proximal stenosis of the LAD. Multiple strategies for management were discussed including medical therapy, PCI/stent, and coronary bypass surgery. In a 69-year-old patient with diabetes and proximal LAD disease, we recommended coronary bypass surgery as the most durable solution that will result in the fewest number of postprocedural interventions. His perioperative risk was discussed and delineated in the STS risk calculator below. His operation would consist of a left internal mammary artery graft to the LAD, a vein graft to the distal right coronary artery system, and a vein graft to the obtuse marginal coronary artery with a proximal stenosis. He will require preprocedure evaluation with carotid ultrasound, surface echo, and a noncontrast CT scan of the chest. His lower extremities appear quite healthy; therefore, vein mapping will not be necessary. STS Risk Calculator Procedure Type: Isolated CABG Perioperative Outcome Estimate % Operative Mortality 0.56% Morbidity & Mortality 3.42% Stroke 0.632% Renal Failure 0.525% Reoperation 1.59% Prolonged Ventilation 1.64% Deep Sternal Wound Infection 0.129% Long Hospital Stay (>14 days) 1.91% Short Hospital Stay (<6 days)* 63.7% History of Present Illness Ryan Wick is a 69 y.o. male referred by Dr. Williamson for CABG. Per note, pt saw PCP with complaints of shortness of breath on exertion. A stress test was ordered which was abnormal with EKG changes suggestive of ischemia at a moderate workload. Pt was then referred to Cardiology who ordered a heart catheterization which pt underwent on 12/25/24 and demonstrated triple-vessel disease with severe disease involving the circumflex and RCA, moderately severe disease involving LAD with mild LV systolic dysfunction. A1C drawn in December 2024 was 6.7%. Pt is here now for an evaluation. Past Medical History Past Medical History: Diagnosis Date Diabetes mellitus (HCC) GERD (gastroesophageal reflux disease) Gout History of kidney stones Hyperlipidemia Hypertension Lumbar stenosis Osteoarthritis Past Surgical History Past Surgical History: Procedure Laterality Date BACK SURGERY KNEE SURGERY Right ROTATOR CUFF REPAIR Bilateral Family History Family History Problem Relation Name Age of Onset Diabetes Mother Coronary artery disease Father Melanoma Father Heart Surgery Father Coronary artery disease Brother Social History Social History Tobacco Use Smoking status: Never Smokeless tobacco: Never Substance Use Topics Alcohol use: Never Drug use: Never Allergies Allergies Allergen Reactions Enalapril Cough Rosuvastatin Other Reaction(s): fatigue Pravastatin Other Reaction(s): fatigue Medications Current Outpatient Medications: aspirin 81 MG EC tablet, Take 81 mg by mouth daily., Disp: , Rfl: cholecalciferol (Vitamin D-3) 50 MCG (1999) capsule, Take 50 mcg by mouth daily., Disp: , Rfl: coenzyme Q-10 100 MG capsule, Take 100 mg by mouth daily., Disp: , Rfl: dilTIAZem CD (Cardizem CD) 360 MG 24 hr capsule, Take 360 mg by mouth daily., Disp: , Rfl: ezetimibe (Zetia) 10 MG tablet, Take 10 mg by mouth daily., Disp: , Rfl: famotidine (Pepcid) 40 MG tablet, Take 40 mg by mouth daily., Disp: , Rfl: glimepiride (Amaryl) 2 MG tablet, Take 2 mg by mouth daily., Disp: , Rfl: hydroCHLOROthiazide (HYDRODiuril) 25 MG tablet, Take 25 mg by mouth daily., Disp: , Rfl: losartan (Cozaar) 100 MG tablet, Take 100 mg by mouth daily., Disp: , Rfl: metFORMIN (Glucophage) 500 MG tablet, Take 500 mg by mouth daily (with breakfast)., Disp: , Rfl: Ozempic, 1 MG/DOSE, 4 MG/3ML solution pen-injector, Inject 1 mg under the skin 1 (one) time per week., Disp: , Rfl: Review of Systems Review of Systems Constitutional: Positive for fatigue. Respiratory: Positive for shortness of breath (on exertion). All other systems reviewed and are negative. Physical Exam Vitals: BP (!) 142/77 (BP Location: Left arm, Patient Position: Sitting, BP Cuff Size: Large adult) Pulse 67 Ht 1.93 m (6' 4) Wt 91.6 kg (202 lb) BMI 24.59 kg/m Physical Exam Constitutional: General: He is not in acute distress. Appearance: Normal appearance. He is normal weight. He is not ill-appearing, toxic-appearing or diaphoretic. HENT: Head: Normocephalic. Eyes: Extraocular Movements: Extraocular movements intact. Cardiovascular: Rate and Rhythm: Normal rate and regular rhythm. Heart sounds: No murmur heard. No friction rub. No gallop. Pulmonary: Effort: Pulmonary effort is normal. No respiratory distress. Breath sounds: Normal breath sounds. No stridor. No wheezing, rhonchi or rales. Chest: Chest wall: No tenderness. Abdominal: General: Abdomen is flat. Musculoskeletal: General: Normal range of motion. Cervical back: Normal range of motion. Skin: General: Skin is warm and dry. Neurological: General: No focal deficit present. Mental Status: He is alert. Psychiatric: Mood and Affect: Mood normal. Behavior: Behavior normal. Thought Content: Thought content normal. Judgment: Judgment normal. Labs No results found for: WBC, HGB, PLT, NA, K, CREATININE Imaging Heart Catheterization 12/25/24 Chest Xray 12/12/24 Stress Test 12/05/24 Patient Care Team: PCP: Miriam Orozco, DO Cardiology: Stone Williamson MD ?? Comorbidity & SKILLED NURSING/CC Extraction Cardiac Multivessel CAD with chronic RCA occlusion ICD-10: I25.10 (atherosclerotic heart disease), I25.82 (chronic total occlusion) Evidence: cath showing RCA DAMAGE ASSESSOR, LAD 70% proximal stenosis, OM1 90% ostial. ? Well documented. Mild LV systolic dysfunction ICD-10: I51.9 or I42.x (if further defined) Evidence: cath report: mild LV systolic dysfunction. EF 45% via cardiac cath (needed for heart failure coding). Hypertension ICD-10: I10 Evidence: PMH, BP 142/77, meds (HCTZ, losartan). Hyperlipidemia ICD-10: E78.x Evidence: PMH, on ezetimibe. History of CAD intervention (PCI) ICD-10: Z95.5 (presence of coronary stent) Evidence: prior LAD/LCx stents. Metabolic/Endocrine Diabetes mellitus (on oral + injectable therapy) ICD-10: E11.9 (Type 2 DM), E11.65 (DM with hyperglycemia if uncontrolled) Evidence: PMH, meds (metformin, glimepiride, Ozempic), A1c 6.7%. Complication status ? coronary artery disease is present ICD-10: M10.9 (gout, unspecified) Evidence: PMH. Osteoarthritis, lumbar stenosis ICD-10: M19.90, M48.06 (lumbar) Not major risk factors but relevant for comorbidity capture. GERD ICD-10: K21.9 Evidence: PMH, on famotidine. History of kidney stones ICD-10: N20.0 (calculus of kidney) Evidence: PMH. Family History Diabetes (mother), CAD (father, brother), heart surgery (father). ICD-10: Z82.49 (family history of ischemic heart disease), Z83.3 (family history of diabetes). Social No tobacco, no alcohol, no drugs. Important negative risk factors. Allergies Enalapril ? cough Rosuvastatin, pravastatin ? fatigue Not comorbidities but impact med management. ?? SKILLED NURSING/CC Capture Class Condition ICD-10 Evidence Missing Specificity SKILLED NURSING None currently -- -- No acute renal failure, no resp failure, no shock documented CC Diabetes mellitus (Type 2) E11.9 A1c 6.7, on oral + GLP-1 Specify if complications present CC Mild LV systolic dysfunction ? possible CHF I50.x Cath report: mild LV dysfunction Clarify EF & HF type/acuity CC Hypertension I10 PMH, BP 142/77 No end-organ link CC Hyperlipidemia E78.x PMH None CC GERD K21.9 PMH None CC Anemia, malnutrition, CKD, COPD, KIRBY -- Not documented Query if present Disclaimer INFORMED CONSENT:The nature and purpose of the proposed treatment or procedure have been discussed. The risks and benefits of the proposed treatment or procedures have been reviewed. Alternatives have been reviewed in addition to the risks and benefits of not receiving treatments or undergoing procedures. Pursuant to this discussion, the patient agrees to undergo the proposed treatment or procedure. Captured images seen in this note from are not a substitute for a comprehensive interpretation of the entire data set as reflected by the interpreting physician with regard to radiology, echocardiography, and other diagnostic images. This note may have been dictated using [employer] Medical Practice Edition 2.6 and/or [employer] [place] Voice Recognition Feature. The document was proofread, however unrecognized voice recognition business ethics professor errors may be present. documented in this encounter [facility] 12-12-2024 Radiology Diagnostic study note [facility] Imaging Services [facility] [place], [place] [address] Chest PA and Lateral MR#: [id number] Acct: [id number] Name: RYAN WICK Rep #: [id number] : 1955 M 69 From: Nahun Palafox MD PCP: Dr. Miriam Orozco, DO Status: REG CLI Study:Chest PA and Lateral Date of Exam: 12/11/24 Exam# [id number] Ordering Dr: Radha Santiago PA ADDENDUM by Dr. Manuel Masters MD on 12/12/24 at 0406 . Reading Location: [facility] 12/12/24 0406 Date cc: Dr. Miriam Orozco DO; GWYN Olivares ~* Signed PROCEDURE: [...] No acute process is seen. Reading Location: [place] [address] CC: Dr. Miriam Orozco DO; GWYN Olivares ~ Wood Tool Maker: Signed [facility] 12-11-2024 Evaluation note Diagnosis Onset Date Resolution Abnormal stress test acute 2024 12:51pm LOVING (dyspnea on exertion) acute December 11, 2024 12:51pm Hyperlipidemia acute December 12:51pm Left carotid bruit acute December 11, 2024 12:51pm Hypertension chronic December 11, 2024 12:51pm [facility] Work Phone: Evaluation noteNo assessment information available [facility] Work Phone: Evaluation note* Diagnosis Onset Date Resolution Status Admit Date Abnormal stress test acute 2024 12:51pm LOVING (dyspnea on exertion) acute December 11, 2024 12:51pm Hyperlipidemia acute December 12:51pm Left carotid bruit acute December 11, 2024 12:51pm Hypertension chronic December 11, 2024 12:51pm [facility] Work Phone: Evaluation note* Diagnosis Coronary artery disease due to calcified coronary lesion- Primary Type 2 diabetes mellitus with other circulatory complication, 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 Discharge instructionsAmbulatory Orders* Cardiovascular/Thoracic Surgery Location: None Selected [facility] Work Phone: Reason for referral (narrative)No reason for referral [facility] Work Phone: Advance Directives No Advanced Directives Records Found Advance Directive Response Recorded Date/ Time Living Will Yes November 15, 2020 6:14am Power of Ground Host/Hostess Yes November 15 6:14am Advance Directive Response Recorded Date/ Time Advance Directives on File Yes Augus 2024 7:14am Living Will Yes December 25 7:14am Do you have a Healthcare Pow er of Ground Host/Hostess? Yes December 25, 2024 7:14am Name of Medical Power of Ground Host/Hostess Gela Roe davis December 25, 2024 7:14am Advance Directives Yes December 25, 2024 7:14am Chief Complaint and Reason for Visit Chief [...] 12:51pm EORDERS December 11, 2024 2:0 4pm Chief Complaint Admit Date DYSPNEA December 05, 2024 9:52 am DYSPNEA December 05, 2024 4:35 pm POS. STRESS (PAM) December 11, 2024 12:51pm EORDERS December 11, 2024 2:0 4pm ABN STRESS December 25, 2024 6: 55am Referral Order December 25, 2024 9: 46am Chief Complaint Admit Date DYSPNEA December 05, 2024 9:52 am DYSPNEA December 05, 2024 4:35 pm POS. STRESS (PAM) December 11, 2024 12:51pm EORDERS December 11, 2024 2:0 4pm ABN STRESS December 25, 2024 6: 55am Referral Order December 25, 2024 9: 46am I25.110 Atherosclerotic heart disease of [place] January 16, 2025 12:46pm Family History No Family History Records Found [...] Status: Active Member Role Status Dates Dr. Miriam Orozco DO Family Provider Active Dr. Miriam Orozco DO Primary Care Provider Active Team Status: Inactive Member Role Status Dates Dr. Miriam Orozco DO Primary Care Provider, Attendin g Provider Active Team Status: Active Member Role/Relationship Status Dates Dr. Miriam Orozco DO Primary Care Provider Active Team Status: Active Member Role/Relationship Status Dates Dr. Miriam Orozco DO Primary Care Provider Active Start: December 05, 2024 Dr. Miriam Orozco DO Attending Provider Active Start: December 05, 2024 Dr. Miriam Orozco DO Referring Provider Active Start: December 05, 2024 Team Status: Active Member Role/Relationship Status Dates Dr. Miriam Orozco DO Primary Care Provider Active Start: December 05, 2024 Dr. Miriam Orozco DO Referring Provider Active Start: December 05, 2024 Dr. Miriam Orozco DO Other Provider Active Sta rt: December 05, 2024 Dr. Stone Williamson MD Attending Provider Active S tart: December 05, 2024 Team Status: Inactive Member Role/Relationship Status Dates Dr. Miriam Orozco DO Primary Care Provider Active Start: December 11, 2024 End: December 11, 2024 Dr. Miriam Orozco DO Referring Provider Active Start: December 11, 2024 End: December 11, 2024 Radha Adame PA, PA Attending Provider Active Start: December 11, 2024 End: December 11, 2024 Team Status: Inactive Member Role/Relationship Status Dates Dr. Miriam Orozco DO Primary Care Provider Active Start: December 05, 2024 End: December 05, 2024 Dr. Miriam Orozco DO Attending Provider Active Start: December 05, 2024 End: December 05, 2024 Dr. Miriam Orozco DO Referring Provider Active Start: December 05, 2024 End: December 05, 2024 Team Status: Active Member Role/Relationship Status Dates Dr. Miriam Orozco DO Primary Care Provider Active Start: December 11, 2024 aRdha Adame PA, PA Attending Provider Active Start: December 11, 2024 Radha Adame PA, PA Referring Provider Active Start: December 11, 2024 Team Status: Inactive Member Role/Relationship Status Dates Dr. Miriam Orozco DO Primary Care Provider Active Start: December 11, 2024 End: December 11, 2024 Radha Adame PA, PA Attending Provider Active Start: December 11, 2024 End: December 11, 2024 Radha Adame PA, PA Referring Provider Active Start: December 11, 2024 End: December 11, 2024 Team Status: Active Member Role/Relationship Status Dates Dr. Miriam Orozco DO Primary Care Provider Active Start: December 25, 2024 Dr. Stone Williamson MD Attending Provider Active S tart: December 25, 2024 Dr. Stone Williamson MD Referring Provider Active S tart: December 25, 2024 Team Status: Active Member Role/Relationship Status Dates Dr. Miriam Orozco DO Primary Care Provider Active Start: December 25, 2024 Dr. Stone Williamson MD Attending Provider Active S tart: December 25, 2024 Team Status: Inactive Member Role/Relationship Status Dates Dr. Miriam Orozco DO Primary Care Provider Active Start: December 25, 2024 End: December 25, 2024 Dr. Stone Williamson MD Attending Provider Active S tart: December 25, 2024 End: December 25, 2024 Dr. Stone Williamson MD Referring Provider Active S tart: December 25, 2024 End: December 25, 2024 Online Content Coordinator Relationship Specialty Start Date End Date Miriam Orozco [address] [place] [address] PCP - General Family Medicine 01/14/25 Online Content Coordinator Relationship Specialty Start Date End Date Pam Miriam Angie [address] [place] [address] PCP - General Family Medicine 01/14/25 Team Status: Inactive Member Role/Relationship Status Dates Dr. Miriam Orozco DO Primary Care Provider Active Start: January 16, 2025 End: January 16, 2025 Dr. Ronnie Herrera MD Attending Provider Active Start: January 16, 2025 End: January 16, 2025 Dr. Ronnie Herrera MD Referring Provider Active Start: January 16, 2025 End: January 16, 2025 Reason for Visit (unrecogniz ed section and content) Reason Comments New Patient Specialty Diagnoses / Procedures Referred By Contac t Referred To Contact Cardiothoracic Surgery Diagnoses Abnormal result of other cardiovascular function study Atherosclerotic heart disease of [place] coronary artery without angina pectoris Procedures CT OFFICE/OUTPATIENT NEW HIGH MDM 60 MINUTES Stone Williamson [address] [place] [address] Phone: tel: fax: Ronnie Herrera MD [address] [facility] [address] [place] [address] Phone: tel:[phone] fax:[phone] Referral ID Status Reason Start Date Expiration Date Visits Re quested Visits Authorized [id number] Closed 12/31/2024 12/31/2025 1 1 Reason Onset Date Comments Surgery Scheduling 01/14/2025 (unrecognized sect ion and content) No Status Records FoundNo Status Records Found INFORMATION SOURCE (unrecogn ized section and content) DATE CREATED AUTHOR [facility]/21/20[email or web address] DATE CREATED AUTHOR AUTHOR'S AMA ATION 01/23/2025 [facility] FOR RECORDS PERTAINING TO PATIENTS WHO ARE [...] BE BASED ON THE PRIMARY CLINICAL RECORDS. [email or web address] provides no warranty or guarantee of the accuracy or completeness of information in this document.
== END | disposition home or self-care (01) ==
LOC: CVS 07:27
PROVIDERS: PCP Family Medicine; Referring Provider Thoracic Surgery (Cardiothoracic Vascular Surgery); Visit Provider Thoracic Surgery (Cardiothoracic Vascular Surgery)
DX: R09.89 Other specified symptoms and signs involving the circulatory and respiratory systems (principal)
CPT/HCPCS: 93880

== ENCOUNTER 2025-02-09 21:27 | Inpatient (IN) | payer MEDICARE, OTHER, SELFPAY ==
[2025-02-09 21:28] VITALS: BP 175/86; PULSE 73; RESP 18; TEMP 36.1; O2SAT 100; BMI 237.1
[2025-02-09 21:30] VITALS: BP 171/84; PULSE 67; RESP 13; TEMP 36.1; O2SAT 97
[2025-02-09 22:14] LABS: Hematocrit 30.5 % (40-54); Hemoglobin 10.1 g/dL (13.0-16.5); Immature Granulocytes Count 0.180 X10^3/uL (0.0-0.0); Mean Corp Hgb Conc 33.1 g/dL (32-36); Mean Corpuscular Volume 92.4 fL (80-94); Mean Platelet Vol. 9.6 fl (6.2-12.0); NRBC Flagged by Analyzer 0 % (0-5); Platelet Count 487 K/mm3 (150-450); RBC Distribution Width CV 12.7 % (11.6-14.6); RBC Distribution Width SD 42.5 fl (35.1-43.9); Red Blood Count 3.30 M/mm3 (4.6-6.2); White Blood Count 10.3 K/mm3 (4.4-11.0)
[2025-02-09 22:19] LABS: Mucous, Urine 0 SEEN /hpf (<or=2+)
[2025-02-09 22:23] LABS: Color, Urine Yellow (Yellow); Glucose, Dipstick Normal (Normal); Ketone-Dipstick Negative (Negative); Leukocyte Esterase-Dipstick Negative /ul (Negative); Nitrite-Dipstick Negative (Negative); Occult Blood-Urine Negative /ul (Negative); Protein-Dipstick 30 mg/dl (Negative); Specific Gravity, Urine 1.020 (1.002-1.030); Urine Bilirubin Dipstick Negative (Negative)
[2025-02-09 22:28] LABS: Prothrombin Time (Protime)PT. 14.5 SECONDS (11.7-14.9)
[2025-02-09 22:29] LABS: Partial Thromboplast Time 39.7 Seconds (24.1-36.2)
[2025-02-09 22:30] VITALS: BP 173/75; PULSE 65; RESP 14; TEMP 36.1; O2SAT 95
[2025-02-09] MEDS: 0.9% Normal Saline (1000mL) 1,000 ML 125 ML IV (22:30)
[2025-02-09 22:32] LABS: AST(SGOT) 22 U/L (<=37); Alanine Aminotransfer ALT/SGPT 20 U/L (<=46); Albumin, Serum 3.8 g/dL (3.4-4.8); Alkaline Phosphatase 106 U/L (40-129); Anion Gap 15 (5-15); BUN 17 mg/dL (4-19); BUN/Creat Ratio 13.3 RATIO (10-20); Calcium,Total 9.8 mg/dL (7.6-11.0); Carbon Dioxide 22.5 mmol/L (21.0-32.0); Chloride 100 mmol/L (98-108); Estimated Creatinine Clearance 311.35 ml/min (50-250); Globulin 3.2 g/dL (2.2-4.2); Glucose 152 mg/dL (70-99); Magnesium 1.5 mg/dL (1.5-2.2); Potassium 4.1 mmol/L (3.3-5.1)
--- OUTSIDE RECORDS SUMMARY | 2025-02-09 22:37 | XMS RPT_ITS | CCD ---
Author Organization [facility] Care Team Providers Care Director Of Physiotherapy Services Name Role Phone Dr. Miriam Gomez DO Primary Care Provider Dr. Miriam Gomez DO Attending Provider [phone] Dr. Miriam Gomez DO Referring Provider [phone] Jason ULKE, Dr. Cotton Other Provider Dr. Stone Williamson MD Attending Provider Radha Gutierrez Attending Provider Radha Gutierrez Referring Provider Teri WHEAT, Dr. Ritter Referring Provider Miriam Gomez Primary Care Provider Dr. Ronnie Herrera MD Attending Provider Dr. Ronnie Herrera MD Referring Provider [phone] Miriam Gomez Primary Care Unavailable Miriam Gomez Attending Unavailable Miriam Gomez Referring Unavailable HerreraRonnie Referring Unavailable HerreraRonnie Attending Unavailable JasonMiriam hernandez Primary Care Unavailable Miriam Gomez Primary Care Unavailable Stone Williamson Attending Unavailable Stone Williamson Referring Unavailable JasonMiriam hernandez Primary Care Unavailable Radha Gutierrez Attending Unavail able Radha Gutierrez Referring Unavail able Miriam Gomez Primary Care Unavailable JasonMiriam hernandez Attending Unavailable Miriam Gomez Referring Unavailable JasonMiriam hernandez Primary Care Unavailable Miriam Gomez Attending Unavailable Miriam Gomez Referring Unavailable Radha Gutierrez Consulting Unavail able Herrera, Ronnie Attending Unavailable Herrera, Ronnie Referring Unavailable Jason, Miriam Primary Care Unavailable Jason, Miriam Primary Care Unavailable Jason, Miriam Consulting Unavailable Teri, [place] Attending Unavailable Jason, Miriam Referring Unavailable Teri, [place] Attending Unavailable Jason, Miriam Primary Care Unavailable Teri, [place] Attending Unavailable Jason, Miriam Primary Care Unavailable Jason, Miriam Primary Care Unavailable Radha Gutierrez Attending Unavail able Jason, Miriam Referring Unavailable HERRERA, RONNIE Attending Unavailable JASON, MIRIAM Primary Care Unavailable HERRERA, RONNIE Attending Unavailable TERI, STONE Referring Unavailable JASON, MIRIAM Primary Care Unavailable HERRERA, RONNIE Admitting Unavailable HERRERA, RONNIE Attending Unavailable JASON, MIRIAM Primary Care Unavailable ZMEILI, MARTELL Consulting Unavailable Miriam Gomez A Primary Care Provider [phone] Jack OWENS, Nelly Unavailable Unavailable Jason LUKE, Dr. Cotton Primary Care Physician Dr. Miriam Gomez DO Attending Physician Dr. Miriam Gomez DO Nurse Practitioner Dr. Stone Williamson MD Attending Physician Radha Gutierrez Attending Physician Dr. Ronnie Herrera MD Attending Physician Radha Gutierrez Nurse Practitioner Benny WHEAT, Dr. Ke Adams Attending Physician Allergies Allergy Classification Reported Allergen(s) Allergy Type Date of Onset Reaction(s) Facility (15 sources) Enalapril Drug Allergy 12-11-2024 [facility] (15 sources) Pravastatin Drug Allergy 12-11-2024 [facility] (15 sources) rosuvastatin Drug Allergy 12-11-2024 [facility] (1 source) Enalapril Drug Allergy 12-11-2024 [facility] (1 source) Pravastatin Drug Allergy 12-11-2024 [facility] (1 source) rosuvastatin Drug Allergy 12-11-2024 [facility] Medications Current Medications Medication Drug Class(es) Dates Sig (Normalized) Sig (Original) acetaminophen 500 mg oral tablet (4 sources) Start: 02-04-2025 take 1000 mg by mouth every eight hours as needed for pain and pain Start: 01-29-2025 End: 02-04-2025 take 1 tablet by mouth every eight hours amiodarone hydrochloride 200 mg oral tablet (4 sources) Antiarrhythmic Start: 02-01-2025 End: 03-18-2025 cholecalciferol 0.05 mg oral capsule (15 sources) Vitamin D Start: 12-11-2024 24 hr dilTIAZem hydrochloride 360 mg extended release oral capsule (20 sources) Calcium Channel Aleksander Start: 07-31-2024 End: 02-04-2025 take 1 capsule by mouth every twenty-four hours Start: 07-31-2024 take 1 capsule by mo ut once daily, then take 1 capsule by mouth every twenty-four hours dilTIAZem CD (Cardizem CD) 360 MG 24 hr capsule Take 360 mg by mouth daily. 07/31/2024 Suspended Start: 11-15-2020 End: 12-11-2024 take 1 capsule by mouth once daily Diltiazem Hcl 240 mg Capsule,Extended Release 24 Hr Discontinued 240 mg PO DAILY November 15, 2020 12:00am December 11, 2024 7:59am famotidine 40 mg oral tablet (15 sources) Histamine-2 Receptor Antagonist Start: 12-11-2024 take 40 mg by mouth every twenty-four hours as needed for gastroesophageal reflux disease furosemide 40 mg oral tablet (8 sources) Loop Diuretic Start: 02-05-2025 End: 02-10-2025 Start: 02-03-2025 End: 02-04-2025 Start: 01-31-2025 End: 02-03-2025 glimepiride 2 mg oral tablet (20 sources) Sulfonylurea Start: 12-11-2024 End: 12-11-2024 take 1 tablet by mouth once daily metFORMIN hydrochloride 500 mg oral tablet (20 sources) Biguanide Start: 12-11-2024 Metformin 500 mg tablet Active mg PO December 11, 2024 12:00am Start: 02-06-2015 End: 12-11-2024 take 1 tablet by mouth twice daily at mealtime Metformin 1,000 MG tablet Discontinued 1000 mg PO TWICE DAILY WITH MEALS February 06, 2015 12:00am December 11, 2024 7:57am take 1 tablet by melanie th three times daily at mealtime metFORMIN (Glucophage) 500 MG tablet Take 500 mg by mouth 3 times daily (with meals). Suspended methocarbamol 500 mg oral tablet (4 sources) Muscle Relaxant Start: 01-30-2025 End: 02-14-2025 take 1000 mg by mouth every eight hours as needed metoprolol tartrate 50 mg oral tablet (8 sources) beta-Adrenergic Aleksander Start: 02-01-2025 End: 04-05-2025 Start: 01-30-2025 End: 02-01-2025 Multivitamin tablet (7 sources) Start: 12-11-2024 Start: 12-11-2024 Multivitamin t ablet Active 1 {tbl} PO EVERY MORNING December 11, 2024 12:00am oxyCODONE hydrochloride 5 mg oral tablet (2 sources) Opioid Agonist Start: 02-04-2025 End: 02-09-2025 microencapsulated potassium chloride 20 meq extended release oral tablet (4 sources) Start: 02-04-2025 End: 02-09-2025 Start: 01-30-2025 End: 02-04-2025 Semaglutide (7 sources) Start: 12-11-2024 Start: 12-11-2024 Semaglutide (O zempic) 1 mg/dose (4 mg/3 mL) pen injector Active mg SC December 11, 2024 12:00am Type 2 diabetic ubidecarenone 100 mg oral ca psule (7 sources) Start: 12-11-2024 take 10 capsules by mouth once daily ubidecarenone 100 mg / vitam in e 5 unt oral capsule (8 sources) Start: 12-11-2024 (2 sources) (2 sources) Completed/Discontinued Medications Medication Drug Class(es) Dates Sig (Normalized) Sig (Original) 20 ml albumin human, half-way 250 mg/ml injection (5 sources) Human Serum Albumin Start: 01-29-2025 End: 02-04-2025 Start: 01-29-2025 End: 01-29-2025 IntraVENous, As needed, Star ting on Mon01/29/25 at 1403, Anesthesia Intraprocedure albuterol 0.833 mg/ml / ipratropium bromide 0.167 mg/ml inhalation solution (2 sources) Anticholinergic, beta2-Adrenergic Agonist Start: 01-29-2025 End: 02-04-2025 ALPRAZolam 0.25 mg disintegrating oral tablet (2 sources) Benzodiazepine Start: 01-29-2025 End: 01-29-2025 aminocaproic acid (Amicar) 10g in sodium chloride 0.9% 290 mL infusion (1 source) Start: 01-29-2025 End: 01-29-2025 IntraVENous, As needed, Starting on Mon01/29/25 at 1255, Anesthesia Intraprocedure aspirin 81 mg chewable tablet (17 sources) Platelet Aggregation Inhibitor, Nonsteroidal Anti-inflammatory Drug Start: 01-30-2025 End: 02-04-2025 Start: 12-11-2024 10 ml calcium chloride 100 mg/ml prefilled syringe (1 source) Start: 01-29-2025 End: 01-29-2025 IntraVENous, As needed, Starting on Mon01/29/25 at 1503, Anesthesia Intraprocedure calcium chloride 0.0014 meq/ml / potassium chloride 0.004 meq/ml / sodium chloride 0.103 meq/ml / sodium lactate 0.028 meq/ml injectable solution (4 sources) Start: 01-29-2025 End: 02-04-2025 100 ml calcium gluconate 20 mg/ml injection (2 sources) Start: 01-29-2025 End: 02-04-2025 ceFAZolin 1000 mg injection (1 source) Cephalosporin Antibacterial Start: 01-29-2025 End: 01-29-2025 IntraVENous, As needed, Starting on Mon01/29/25 at 1244, Anesthesia Intraprocedure ceFAZolin (Ancef) 2,000 mg in sodium chloride 0.9 % 100 mL IVPB (2 sources) Start: 01-29-2025 End: 01-31-2025 take 2000 mg intravenously every eight hours Chlorhexidine (7 sources) Start: 01-30-2025 End: 02-03-2025 Start: 01-29-2025 End: 02-04-2025 Start: 01-14-2025 End: 01-14-2025 chlorhexidine (Peridex) 0.12 % solution Use 15 mL in the mouth or throat Once for 1 dose. Swish for 30 seconds and spit out the night before surgery. Do not swallow. 15 mL 01/14/2025 01/14/2025 Active cholecalciferol 9.52 unt/ml / glucose 357 mg/ml oral gel (2 sources) Vitamin D Start: 01-29-2025 End: 02-04-2025 100 ml dexmedetomidine 0.004 mg/ml injection (2 sources) Central alpha-2 Adrenergic Agonist Start: 01-29-2025 End: 01-30-2025 docusate sodium 50 mg / sennosides, half-way 8.6 mg oral tablet (2 sources) Start: 01-29-2025 End: 02-04-2025 0.5 ml dulaglutide 3 mg/ml auto-injector (9 sources) GLP-1 Receptor Agonist Start: 11-15-2020 End: 12-11-2024 Dulaglutide (Trulicity) 1.5 mg/0.5 mL Pen Injector Discontinued 1.5 mg SC EVERY WEEK November 15, 2020 12:00am December 11, 2024 7:58am 0.4 ml enoxaparin sodium 100 mg/ml prefilled syringe (2 sources) Low Molecular Weight Heparin Start: 01-30-2025 End: 02-04-2025 1 ml ePHEDrine sulfate 50 mg/ml injection (1 source) alpha-Adrenergic Agonist, beta-Adrenergic Agonist, Norepinephrine Releasing Agent Start: 01-29-2025 End: 01-29-2025 IntraVENous, As needed, Starting on Mon01/29/25 at 1306, Anesthesia Intraprocedure 10 ml esmolol hydrochloride 10 mg/ml injection (1 source) beta-Adrenergic Aleksander Start: 01-29-2025 End: 01-29-2025 IntraVENous, As needed, Starting on Mon01/29/25 at 1205, Anesthesia Intraprocedure 20 ml etomidate 2 mg/ml injection (1 source) General Anesthetic Start: 01-29-2025 End: 01-29-2025 IntraVENous, As needed, Starting on Mon01/29/25 at 1205, Anesthesia Intraprocedure ezetimibe 10 mg oral tablet (17 sources) Dietary Cholesterol Absorption Inhibitor Start: 12-11-2024 End: 02-04-2025 20 ml fentaNYL 0.05 mg/ml injection (1 source) Opioid Agonist Start: 01-29-2025 End: 01-29-2025 IntraVENous, As needed, Starting on Mon01/29/25 at 1205, Anesthesia Intraprocedure glucagon (rdna) 1 mg injection (2 sources) Antihypoglycemic Agent Start: 01-29-2025 End: 02-04-2025 50 ml glucose 50 mg/ml injection (4 sources) Start: 01-29-2025 End: 02-04-2025 Start: 01-29-2025 End: 02-04-2025 1 ml glycopyrrolate 0.2 mg/ml injection (1 source) Start: 01-29-2025 End: 01-29-2025 IntraVENous, As needed, Starting on Mon01/29/25 at 1304, Anesthesia Intraprocedure 1 ml heparin sodium, porcine 1000 unt/ml injection (1 source) Unfractionated Heparin, Anti-coagulant Start: 01-29-2025 End: 01-29-2025 IntraVENous, As needed, Starting on Mon01/29/25 at 1327, Anesthesia Intraprocedure hydroCHLOROthiazide 25 mg oral tablet (17 sources) Thiazide Diuretic Start: 11-15-2020 End: 02-04-2025 1 ml HYDROmorphone hydrochloride 1 mg/ml cartridge (2 sources) Opioid Agonist Start: 01-29-2025 End: 01-29-2025 Start: 01-29-2025 End: 01-29-2025 insulin glargine 100 unt/ml injectable solution (10 sources) Insulin Analog Start: 01-31-2025 End: 02-04-2025 insulin lispro 100 unt/ml injectable solution (12 sources) Insulin Analog Start: 01-31-2025 End: 02-04-2025 100 ml insulin, regular, human 1 unt/ml injection (3 sources) Insulin Start: 01-29-2025 End: 01-31-2025 1 ml ketorolac tromethamine 15 mg/ml cartridge (2 sources) Nonsteroidal Anti-inflammatory Drug, Cyclooxygenase Inhibitor Start: 02-01-2025 End: 02-01-2025 take 15 mg intravenously every six hours lidocaine 0.04 mg/mg medicated patch (4 sources) Antiarrhythmic, Amide Local Anesthetic Start: 01-29-2025 End: 02-04-2025 Start: 01-29-2025 End: 01-29-2025 Infiltration, As needed, Sta rting on Mon01/29/25 at 1439, Anesthesia Intraprocedure Start: 01-29-2025 End: 01-29-2025 IntraVENous, As needed, Star ting on Mon01/29/25 at 1205, Anesthesia Intraprocedure losartan potassium 100 mg oral tablet (15 sources) Angiotensin 2 Receptor Aleksander Start: 12-11-2024 End: 02-04-2025 magnesium hydroxide 80 mg/ml oral suspension (2 sources) Start: 02-01-2025 End: 02-03-2025 meclizine hydrochloride 25 mg oral tablet (9 sources) Antiemetic Start: 11-15-2020 End: 12-11-2024 take 1 tablet by mouth every eight hours as needed for dizziness Meclizine 25 MG tablet Discontinued 25 mg PO EVERY 8 HOURS NEEDED as needed for Dizziness 20 0 November 15, 2020 12:00am December 11, 2024 7:59am melatonin 3 mg oral tablet (2 sources) Start: 02-03-2025 End: 02-04-2025 2 ml midazolam 1 mg/ml injection (1 source) Benzodiazepine Start: 01-29-2025 End: 01-29-2025 IntraVENous, As needed, Starting on Mon01/29/25 at 1150, Anesthesia Intraprocedure 1 ml morphine sulfate 4 mg/ml cartridge (2 sources) Opioid Agonist Start: 01-29-2025 End: 01-29-2025 Start: 01-29-2025 End: 01-29-2025 Multiple Vitamin (multivitamin) tablet (1 source) take 1 tablet by mouth once daily Multiple Vitamin (multivitamin) tablet Take 1 tablet by mouth daily. Suspended mupirocin 0.02 mg/mg topical ointment (9 sources) RNA Synthetase Inhibitor Antibacterial Start: 01-30-20 End: 02-03-20 Start: 01-29-2025 End: 01-29-2025 Start: 01-14-2025 End: 02-04-2025 Start: 01-14-2025 mupirocin (Yusra troban) 2 % ointment Using a q-tip, place small fingertip size amount into each nostril the night before surgery. Do not occlude nasal passage. 1 g 01/14/2025 Suspended 1 ml naloxone hydrochloride 0.4 mg/ml injection (2 sources) Opioid Antagonist Start: 01-29-2025 End: 02-04-2025 norepinephrine (Levophed) 16 mg in 0.9% sodium chloride 250 mL infusion (weight based) (premix) (2 sources) Start: 01-29-2025 End: 01-30-2025 Ozempic, 1 MG/DOSE, 4 MG/3ML solution pen-injector (6 sources) inject 1 mg by subcutaneous injection every week in the morning Ozempic, 1 MG/DOSE, 4 MG/3ML solution pen-injector Inject 1 mg under the skin 1 (one) time per week. Tuesdays or Wednesdays am Suspended inject 1 mg by subcu taneous injection every week in the morning Ozempic, 1 MG/DOSE, 4 MG/3ML solution pen-injector Inject 1 mg under the skin 1 (one) time per week. Tuesdays or Wednesdays am Active inject 1 mg by subcu taneous injection every week Ozempic, 1 MG/DOSE, 4 MG/3ML solution pen-injector Inject 1 mg under the skin 1 (one) time per week. Active pantoprazole 40 mg delayed release oral tablet (2 sources) Proton Pump Inhibitor Start: 01-30-2025 End: 02-04-2025 pantoprazole (ProtoNix) 40 mg in sodium chloride (PF) 0.9 % 10 mL injection (2 sources) Start: 01-30-2025 End: 01-30-2025 perfusion prime builder (1 source) Start: 01-29-2025 End: 01-29-2025 Perfusion, Continuous PRN, Starting on Mon01/29/25 at 1353, Anesthesia Intraprocedure Phenylephrine HCl (Pressors) 1 MG/10ML injection (1 source) Start: 01-29-2025 End: 01-29-2025 IntraVENous, As needed, Starting on Mon01/29/25 at 1303, Anesthesia Intraprocedure polyethylene glycol 3350 10227 mg powder for oral solution (2 sources) Osmotic Laxative Start: 01-29-2025 End: 02-04-2025 prochlorperazine 5 mg/ml injectable solution (2 sources) Phenothiazine Start: 01-30-2025 End: 02-04-2025 take 5 mg intravenously every eight hours as needed for nausea and vomiting 100 ml propofol 10 mg/ml injection (3 sources) General Anesthetic Start: 01-29-2025 End: 01-30-2025 25 ml protamine sulfate (half-way) 10 mg/ml injection (1 source) Start: 01-29-2025 End: 01-29-2025 IntraVENous, As needed, Starting on Mon01/29/25 at 1509, Anesthesia Intraprocedure rocuronium bromide 10 mg/ml injectable solution (1 source) Nondepolarizing Neuromuscular Aleksander Start: 01-29-2025 End: 01-29-2025 IntraVENous, As needed, Starting on Mon01/29/25 at 1205, Anesthesia Intraprocedure rosuvastatin calcium 5 mg oral tablet (7 sources) HMG-CoA Reductase Inhibitor Start: 12-11-2024 End: 12-11-2024 take 1 tablet by mouth once daily Rosuvastatin 5 mg tablet Discontinued 5 mg PO daily December 11, 2024 12:00am December 11, 2024 1:00pm SITagliptin 100 mg oral tablet (9 sources) Dipeptidyl Peptidase 4 Inhibitor Start: 11-15-2020 End: 12-11-2024 take 1 tablet by mouth once daily Sitagliptin Phosphate (Januvia) 100 mg Tablet Discontinued 100 mg PO DAILY November 15, 2020 12:00am December 11, 2024 7:59am 5 ml sodium chloride 9 mg/ml injection (7 sources) Start: 01-29-2025 End: 02-01-2025 Start: 01-29-2025 End: 02-03-2025 take 5-40 mL intraluminal route every eight hours Start: 01-29-2025 End: 01-29-2025 5 ml sugammadex 100 mg/ml injection (2 sources) Start: 01-29-2025 End: 01-29-2025 (8 sources) Start: 02-03-2025 End: 02-04-2025 take 5 mg by mouth every six hours as needed for pain [Order 1 Start] Name: oxyCODONE (Roxicodone) immediate release tablet 5 mg Signed Summary: 5 mg, Oral, Every 6 hours PRN, moderate pain (4-6), Starting on Mon02/03/25 at 0730 [Order 1 End] [Order 2 Start] Name: oxyCODONE (Roxicodone) immediate release tablet 10 mg Signed Summary: 10 mg, Oral, Every 6 hours PRN, severe pain (7-10), Starting on Mon02/03/25 at 0730 [Order 2 End] Start: 01-29-2025 End: 02-04-2025 [Order 1 Start] Name: kiran ium sulfate IVPB premix 2,000 mg Signed Summary: 2,000 mg, IntraVENous, at 25 mL/hr, Administer over 2 Hours, As needed, Per Magnesium Replacement Protocol, Starting on Mon01/29/25 at 1621, Recovery & On Unit, Mg Lab Replacement Action 1.4-1.6 2 gram IVPB x 1 doses 1.0-1.3 4 gram IVPB x 1 doses Less than 1.0 CALL PHYSICIAN and 4 gram IVPB x 1 doses Infuse at 1 gram/hr. Repeat Mag level next AM. Not for use in Patients with CrCl less than 30 mL/min. [Order 1 End] [Order 2 Start] Name: magnesium sulfate IVPB 4,000 mg Signed Summary: 4,000 mg, IntraVENous, at 25 mL/hr, Administer over 4 Hours, As needed, Per Magnesium Replacement Protocol, Starting on Mon01/29/25 at 1621, Recovery & On Unit, Mg Lab Replacement Action 1.4-1.6 2 gram IVPB x 1 doses 1.0-1.3 4 gram IVPB x 1 doses Less than 1.0 CALL PHYSICIAN and 4 gram IVPB x 1 doses Infuse at 1 gram/hr. Repeat Mag level next AM. Not for use in Patients with CrCl less than 30 mL/min. [Order 2 End] Start: 01-29-2025 End: 02-04-2025 [Order 1 Start] Name: kianna ium chloride IVPB 20 mEq Signed Summary: 20 mEq, IntraVENous, at 50 mL/hr, Administer over 1 Hours, 3 times daily PRN, hypokalemia, Starting on Mon01/29/25 at 1621, Recovery & On Unit, For Central Line Use Only K Lab Replacement Action 3.1-3.5 20 mEq IVPB x 2 doses 2.7-3.0 20 mEq IVPB x 2 doses (40 mEq Total) less than 2.7 CALL PROVIDER and administer 20 mEq IVPB x 2 doses (40 mEq Total) Infuse at 20 mEq/hr Repeat Potassium lab 1 hour after final administration. Protocol not for use in Patients with CrCl less than 30mL/min For central line administration only. [Order 1 End] [Order 2 Start] Name: potassium chloride 20 mEq in NS 250 mL IVPB (premix) Signed Summary: 20 mEq, IntraVENous, Administer over 2 Hours, Every 8 hours PRN, hypokalemia, Starting on Mon01/29/25 at 1621, Recovery & On Unit, For Peripheral Line Use K Lab Replacement Action 3.1-3.5 20 mEq IVPB x 1 doses 2.7-3.0 40 mEq IVPB x 1 doses less than 2.7 CALL PROVIDER and administer 40 mEq IVPB x 1 dose Infuse at 10 mEq/hr Repeat Potassium lab 1 hour after administration. Protocol not for use in Patients with CrCl less than 30mL/min [Order 2 End] [Order 3 Start] Name: potassium chloride 40 mEq in NS 500 mL IVPB (premix) Signed Summary: 40 mEq, IntraVENous, at 125 mL/hr, Administer over 4 Hours, 3 times daily PRN, hypokalemia, Starting on Mon01/29/25 at 1621, Recovery & On Unit, For Peripheral Line Use. K Lab Replacement Action 3.1-3.5 20 mEq IVPB x 1 doses 2.7-3.0 40 mEq IVPB x 1 doses less than 2.7 CALL PROVIDER and administer 40 mEq IVPB x 1 dose Infuse at 10 mEq/hr Repeat Potassium lab 1 hour after administration. Protocol not for use in Patients with CrCl less than 30mL/min [Order 3 End] Start: 01-29-2025 End: 02-04-2025 take 4 mg by mouth every eight hours as needed for nausea and vomiting [Order 1 Start] Name: ondansetron ODT (Zofran-ODT) disintegrating tablet 4 mg Signed Summary: 4 mg, Oral, Every 8 hours PRN, nausea, vomiting, Starting on Mon01/29/25 at 1621, Recovery & On Unit, 1st Line. If inadequate response within 60 minutes, proceed to next-line agent or contact provider if no further options ordered. Patient should allow tablet to dissolve on tongue. Do not remove from blister pack until just before administering. [Order 1 End] [Order 2 Start] Name: ondansetron (Zofran) injection 4 mg Signed Summary: 4 mg, IntraVENous, Every 6 hours PRN, nausea, vomiting, Starting on Mon01/29/25 at 1621, Recovery & On Unit, 1st Line. Give IV if patient is unable to take orally. If inadequate response within 60 minutes, proceed to next-line agent or contact provider if no further options ordered. [Order 2 End] (2 sources) Start: 01-29-2025 End: 01-29-2025 Problems Problem Classification Problem Date Documented Date Episodic/Chronic Conditions associated with dizziness or vertigo (9 sources) Vertigo; Translations: [Dizziness and giddiness] 11-15-2020 Episodic Coronary atherosclerosis and other heart disease (20 sources) Coronary arteriosclerosis; Translations: [Atherosclerotic heart disease of [place] coronary artery without angina pectoris] Onset: 01-14-2025 Chronic Diabetes mellitus with complications (4 sources) Insulin treated type 2 diabetes mellitus; Translations: [Type 2 diabetes mellitus with other circulatory complications] Onset: 01-14-2025 01-14-2025 Chronic Diabetes mellitus without complication (9 sources) Diabetes mellitus; Translations: [Type 2 diabetes mellitus without complications] Onset: 03-20-2024 12-11-2024 Chronic Disorders of lipid metabolism (14 sources) Hyperlipidemia; Translations: [Hyperlipidemia, unspecified] 12-11-2024 Chronic Esophageal disorders (7 sources) Gastroesophageal reflux disease; Translations: [Gastro-esophageal reflux disease without esophagitis] 12-11-2024 Chronic Essential hypertension (15 sources) Hypertensive disorder; Translations: [Essential (primary) hypertension] Onset: 12-11-2024 12-11-2024 Chronic Other aftercare (2 sources) skilled nursing (current) use of insulin; Translations: [skilled nursing (current) use of insulin (HCC)] Onset: 01-14-2025 Episodic Other circulatory disease (14 sources) Carotid bruit; Translations: [Other specified symptoms and signs involving the circulatory and respiratory systems] 12-11-2024 Episodic Other circulatory disease (1 source) Other specified symptoms and signs involving the circulatory and respiratory systems; Translations: [Other specified symptoms and signs involving the circulatory and respiratory systems] Onset: 01-28-2025 Episodic Other lower respiratory disease (14 sources) Dyspnea on exertion; Translations: [Other forms of dyspnea] 12-11-2024 Episodic Other lower respiratory disease (2 sources) Other forms of dyspnea; Translations: [Other forms of dyspnea] Onset: 01-01-2025 Episodic Other screening for suspected conditions (not mental disorders or infectious disease) (17 sources) Cardiovascular stress test abnormal; Translations: [Abnormal result of other cardiovascular function study] Onset: 12-11-2024 12-11-2024 Episodic Unclassified (3 sources) Abnormal cardiovascular stress test Unclassified (4 sources) R94.39 - Abnormal result of other cardiovascular function study,I25.10 - Atherosclerotic heart disease of [place] coronary artery without angina pectoris Results Test Name Value Interpretation Reference Range Facility BASIC METABOLIC PANELon 09-3 Anion gap [Moles/Vol] 9 mmol/L Normal 3-13 [facility] Comment on above: Performed By: #### L [id number], [id number] ####[place] Mason: HIPOLITO WOODS ([id number])[facility])[address] [place] [address] Calcium [Mass/Vol] 9.1 mg/dL Normal 8.8-10.0 [facility] Comment on above: Performed By: #### L [id number], [id number] ####[place] Mason: HIPOLITO WOODS ([id number])[facility] ([facility])[address] [place] [address] Chloride [Moles/Vol] 104 mmol/L Normal 98-[address] [facility] Comment on above: Performed By: #### L AB15, [id number] ####[place] Mason: HIPOLITO WOODS ([id number])[facility])[address] [place] [address] CO2 [Moles/Vol] 24 mmol/L Normal 23-31 [facility] Comment on above: Performed By: #### L AB15, [id number] ####Monument Mason: HIPOLITO WOODS ([id number])[facility])[address] [place] [address] Creatinine [Mass/Vol] 1.03 mg/dL Normal 0.72-1.25 [facility] Comment on above: Performed By: #### L AB15, [id number] ####Monument Mason: HIPOLITO [id number])[facility])[address] [place] [address] GLOMERULAR FILTRATION RATE ML/MIN/1.73 SQ M.PREDICTED 78.1 mL/min/1.73m*2 Normal >60.0 [facility] Comment on above: Result Comment: Calc ulation based on the Chronic Kidney Disease Epidemiology Collaboration (CKD-EPI) equation refit without adjustment for race Performed By: #### L AB15, [id number] ####Monument Mason: HIPOLITO WOODS ([id number])[facility])[address] [place] [address] Glucose [Mass/Vol] 182 mg/dL High 82-115 [facility] Comment on above: Performed By: #### L AB15, [id number] ####Monument Mason: HIPOLITO WOODS ([id number])[address] Potassium [Moles/Vol] 3.7 mmol/L Normal 3.5-5.1 [facility] Comment on above: Result Comment: [facility] potassium values may be up to 0.5 mmol/L lower than serum values. Performed By: #### L AB15, [id number] ####Monument Mason: HIPOLITO WOODS ([id number])[facility])[address] [place] [address] [place] Sodium [Moles/Vol] 137 mmol/L Normal 136-145 [facility] Comment on above: Performed By: #### L AB15, [id number] ####Monument Mason: HIPOLITO WOODS ([id number])[facility])[address] [place] [address] [place] Urea nitrogen [Mass/Vol] 22 mg/dL Normal 9-23 [facility] Comment on above: Performed By: #### L AB15, [id number] ####Monument Mason: HIPOLITO WOODS ([id number])[facility])[address] [place] [address] Basic metabolic 1998 panelon 02-04-2025 Anion gap [Moles/Vol] 9 mmol/L 3 - 13 mmol/L [facility] Calcium [Mass/Vol] 9.1 mg/dL 8.8 - 10. 0 mg/dL [facility] Chloride [Moles/Vol] 104 mmol/L 98 - 10 7 mmol/L [facility] CO2 [Moles/Vol] 24 mmol/L 23 - 31 mmol/L [facility] Creatinine [Mass/Vol] 1.03 mg/dL 0.72 - 1.25 mg/dL [facility] GFR/1.73 sq M.predicted (S/P/Bld) [Vol rate/Area] 78.1 mL/min - PINF [facility] Glucose [Mass/Vol] 182 mg/dL High 82 - 115 mg/dL [facility] Interpretation and review of laboratory results Abnormal [facility] Potassium [Moles/Vol] 3.7 mmol/L 3.5 - 5.1 mmol/L [facility] Sodium [Moles/Vol] 137 mmol/L 136 - 145 mmol/L [facility] Urea nitrogen [Mass/Vol] 22 mg/dL 9 - 23 mg/d L [facility] CALCIUM, IONIZEDon CALCIUM IONIZED 4.50 mg/dL Normal 4.30-5.20 [facility] Comment on above: Order Comment: Obtai n PRN and check ionized Ca level if serum Ca level less than 8.0 Performed By: #### L AB54 ####Monument Mason: HIPOLITO WOODS ([id number])[address] PH, IONIZED CALCIUM 7.46 Normal 7.31-7.46 [facility] Comment on above: Order Comment: Obtai n PRN and check ionized Ca level if serum Ca level less than 8.0 Performed By: #### L AB54 ####Monument Mason: HIPOLITO WOODS ([id number])[address] CBC (HEMOGRAM)on 02-04-2025 Erythrocyte distribution width (RBC) [Ratio] 12.8 % Normal 11.5-15.0 [facility] Comment on above: Performed By: #### L AB103, LAB15 #### Monument Mason: HIPOLITO WOODS ([id number]) [facility] [address] [place] [address] Hematocrit (Bld) [Volume fraction] 26.9 % Low 40.0-52.0 [facility] Comment on above: Performed By: #### L AB103, LAB15 #### Monument Mason: HIPOLITO WOODS ([id number]) [facility] ([facility]) [address] [place] [address] Hemoglobin (Bld) [Mass/Vol] 8.9 g/dL Low 13.0-18.0 [facility] Comment on above: Performed By: #### L AB103, LAB15 #### Monument Mason: HIPOLITO WOODS ([id number]) [facility]) [address] [place] [address] MCH (RBC) [Entitic mass] 31.1 pg Normal 26.0-34.0 [facility] Comment on above: Performed By: #### L AB103, LAB15 #### Monument Mason: HIPOLITO WOODS ([id number]) [facility] ([facility]) [address] [place] [address] MCHC 33.1 % Normal 30.5-36.0 [facility] Comment on above: Performed By: #### L AB103, LAB15 #### Monument Mason: HIPOLITO WOODS ([id number]) [facility] ([facility]) [address] [place] [address] MCV (RBC) [Entitic vol] 94.1 fL Normal 77.0-99.0 [facility] Comment on above: Performed By: #### L AB103, LAB15 #### Monument Mason: HIPOLITO WOODS ([id number]) [facility] ([facility]) [address] [place] [address] Platelet mean volume (Bld) [Entitic vol] 10.4 fL Normal 9.0-12.7 [facility] Comment on above: Performed By: #### L AB103, LAB15 #### Monument Mason: HIOPLITO WOODS ([id number]) [facility]) [address] [place] [address] Platelets (Bld) [#/Vol] 285 10*3/uL Normal 140-440 [facility] Comment on above: Performed By: #### L AB103, LAB15 #### Monument Mason: HIPOLITO WOODS ([id number]) [facility] ([facility]) [address] [place] [address] RBC (Bld) [#/Vol] 2.86 10*6/uL Low 4.40-5.90 [facility] Comment on above: Performed By: #### L AB103, LAB15 #### Monument Mason: HIPOLITO WOODS ([id number]) [facility] ([facility]) [address] [place] [address] WBC (Bld) [#/Vol] 6.7 10*3/uL Normal 3.6-10.7 [facility] Comment on above: Performed By: #### L AB103, LAB15 #### Monument Mason: HIPOLITO WOODS ([id number]) [facility] ([facility]) [address] [place] [address] CBC panel Auto (Bld)Ordered By: German Aguilera on 02-04-2025 Erythrocyte distribution width (RBC) [Ratio] 12.8 % 11.5 - 15.0 % [facility] Hematocrit (Bld) [Volume fraction] 26.9 % Low 40.0 - 52.0 % [facility] Hemoglobin (Bld) [Mass/Vol] 8.9 g/dL Low 13.0 - 18.0 g/dL [facility] Interpretation and review of laboratory results Abnormal [facility] MCH (RBC) [Entitic mass] 31.1 pg 26. 0 - 34.0 pg [facility] MCHC (RBC) [Mass/Vol] 33.1 % 30.5 - 36.0 % [facility] MCV (RBC) [Entitic vol] 94.1 fL 77.0 - 99.0 fL [facility] Platelet mean volume (Bld) [Entitic vol] 10.4 fL 9.0 - 12.7 fL [facility] Platelets (Bld) [#/Vol] 285 10*3/uL 140 - 440 10*3/uL [facility] RBC (Bld) [#/Vol] 2.86 10*6/uL Low 4.40 - 5.9 0 10*6/uL [facility] WBC (Bld) [#/Vol] 6.7 10*3/uL 3.6 - 10.7 10*3/uL [facility] Calcium.ionized [Moles/Vol]O rdered By: Beronica Hill on 02-04-2025 Calcium.ionized (Bld) [Moles/Vol] 4.5 mg/dL 4.30 - 5.20 mg/dL [facility] Interpretation and review of laboratory results Normal [facility] PH, IONIZED CALCIUM 7.46 7.31 - 7.46 [facility] Laboratory - Chemistry and C hemistry - challengeon 02-04-2025 Glucose [Mass/Vol] 208 mg/dL High 70 - 100 mg/dL [facility] Magnesium [Mass/Vol] 1.8 mg/dL 1.6 - 2 .6 mg/dL [facility] MAGNESIUMon 02-04-2025 Magnesium [Mass/Vol] 1.8 mg/dL Normal 1.6-2.6 [facility] Comment on above: Result Comment: TOM Peterson COMMENTS: Higher values can be expected in females during menses. Performed By: #### L AB15, [id number] ####Monument Mason: HIPOLITO WOODS ([id number])[address] Magnesium [Mass/Vol]on 02-04 Interpretation and review of laboratory results Normal [facility] No Panel Informationon 02-04 Interpretation and review of laboratory results Abnormal [facility] Progress Noteon 02-04-2025 Progress Note Department of Internal Medicine Division of Endocrinology, Diabetes, & Metabolism Endocrinology Note Patient Name: Ryan Macedo : 1955 AGE: 69 y.o. Room/Bed: T1-121/T1-121 A Admission Date: 01/29/2025 Visit Date: 02/04/2025 Reason for Endocrine Consult: post heart Provider/Team Requesting Consult: cts PCP: MIRIAM GOMEZ Outpt Travel Assistant: No ASSESSMENT: Stress hyperglycemia DM2 with hyperglycemia without longterm insulin CABGx3 Htn/hld/cad PLAN: -Blood sugar variable - Continue lantus 22 daily - Keep Humalog to moderate sliding scale meals - Keep Humalog 10/10/10 units tid meals No insulin on discharge ICU goal <180 GMF goal <150 POCT BG ACHS Hypoglycemia management per protocol Carb controlled diet ANTICIPATED ENDOCRINE HOME GOING RECOMMENDATIONS: Optimized for Discharge from Endocrine standpoint: Yes Home Going Endocrine Rx Recommendations-- Continue Home regimen glimepiride, metformin, Ozempic (Discussed with patient to discuss with his PCP outpatient to stop his glimepiride, and increase Ozempic to 2 mg) Outpatient consider SGLT2 possibly Has home glucometer already Outpt Follow Up-- PCP SUBJECTIVE/HPI: CHIEF COMPLAINT: No chief complaint on file. S/p CABGx3 Noted hx of DM2 upon chart review, sees PCP for this. Not on insulin only oral medications No history of thyroid disease 02-04: Blood sugar variable, elevated this morning drinking regular Coke Counseled against drinking regular Coke or eating donuts Ate all of his breakfast Denies nausea vomiting abdominal pain Plan is for discharge today he will follow-up closely with his family doctor for his diabetes Interval events 02-03: Blood sugar elevated, insulin adjusted today Awake alert ambulating in room up in bathroom Vitals are stable Did eat a bagel this morning for breakfast No nausea vomiting noted Spoke with team and family in the room interval 02/02 Appetite improving, no abd pain, n/v. at bedside. POC glucose and insulin administration for last 24h reviewed. Interval 02/01 Ate bkfast, no abd pain, n/v. at bedside. POC glucose and insulin administration for last 24h reviewed. Interval events -: BGL stable on insulin gtt 1.5/hr-plan to tx off Up awake VSS RA Walking in halls CT in place Ate small bfast- burundian toast No nv noted Spoke with team Family present BGL below Stable on insulin gtt 3/hr No A1c in chart or Care Everywhere order placed to check lab level add on No pressors are currently on Patient is awake alert extubated VSS RA Family in room Confirmed his home diabetes medication regimen, sees PCP for this He is already on a GLP-1, states he has never been on Jardiance or Farxiga before Has a home glucometer, states that his ranges between 80-100 recently, no noted lows Did have some nausea vomiting this morning, had a few bites of breakfast X 2 chest tubes are in place Spoke with team Type of DM: 2 Onset of DM: Over 25 years ago Home DM Medication Regimen: glimipiride 2 mg daily, metformin 500 mg tid (2 tabs a.m., 1 tab lunch, 2 tabs p.m.), ozempic 1 mg weekly on Wednesdays DM control (last A1c/glucose data): Lab Results Component Value Date HGBA1C 6.8 (H) 01/30/2025 Glucose Date/Time Value Ref Range Status 02/04/2025 07:21 AM 208 (H) 70 - 100 mg/dL Final 02/03/2025 06:02 PM 187 (H) 70 - 100 mg/dL Final 02/03/2025 11:39 AM 290 (H) 70 - 100 mg/dL Final 02/03/2025 07:18 AM 220 (H) 70 - 100 mg/dL Final 02/02/2025 04:20 PM 240 (H) 70 - 100 mg/dL Final 02/02/2025 11:29 AM 289 (H) 70 - 100 mg/dL Final Review of Systems ROS negative except for those mentioned in HPI. OBJECTIVE: Vitals: 02/04/25 0100 02/04/25 0200 02/04/25 0300 02/04/25 0600 BP: 132/71 114/60 BP Location: Right arm Patient Position: Lying Pulse: 66 63 64 Resp: 18 Temp: 36.9 ?C (98.5 ?F) TempSrc: Temporal SpO2: 94% 94% 97% Weight: 206 lb 2.1 oz (93.5 kg) Height: Physical Exam Vitals and nursing note reviewed. Constitutional: General: He is not in acute distress. Appearance: He is not toxic-appearing or diaphoretic. Cardiovascular: Rate and Rhythm: Normal rate. Pulmonary: Effort: Pulmonary effort is normal. Abdominal: Tenderness: There is no guarding. Musculoskeletal: Cervical back: Normal range of motion. Skin: General: Skin is warm and dry. Coloration: Skin is pale. Comments: Intact incision Neurological: Mental Status: He is oriented to person, place, and time. Mental status is at baseline. Psychiatric: Mood and Affect: Mood normal. 24 hour intake/output:No intake or output data in the 24 hours ending 02/04/25 0904 Diet: Adult diet Regular; No Added Salt (3-4 gm); 5 carb choices (75 gm/meal) Medications (as per EMR): HomeMeds: Current Outpatient Medications Medication Instructions aspirin 81 mg, Daily cholecalciferol (VITAMIN D-3) 50 mcg, Pramod (more content not included)... Normal [facility] XR CHEST 1 VIEWon 02-04-2025 XR CHEST 1 VIEW Patient Name: RYAN MACEDO : 1955 Exam Date/Time: 02/04/2025 05:18 Procedure: XR CHEST 1 VIEW Ordering Provider: SHEIKH ANDREW Reason For Exam: Shortness of breath PORTABLE CHEST X-RAY CLINICAL INDICATION: Shortness of breath A portable frontal view of the chest was obtained. COMPARISON: 02/03/2025 FINDINGS: Heart size is at the upper limits of normal. Sternotomy wires are again noted. Mediastinal drain and bilateral chest tubes have been withdrawn. There is no evidence of pneumothorax. There is streaky bilateral basilar atelectasis, overall similar to the prior study. There are likely trace pleural effusions, also unchanged. No new areas of consolidation are seen. There are degenerative changes of the thoracic spine with dextroscoliosis. IMPRESSION: Mediastinal drain and bilateral chest tubes have been removed. Aeration within the lungs is grossly unchanged. Report Dictated on Electronically Signed By: Mark Anthony Frausto MD Electronically Signed Date/Time: 02/04/2025 7:48 AM EDT Normal [facility] XR Chest Single viewon 02-04 [facility] Radiology Study observation (narrative) [facility] XR Chest Single viewOrdered By: Mark Anthony Frausto on 02-04-2025 [facility] BASIC METABOLIC PANELon 01-07 Anion gap [Moles/Vol] 5 mmol/L Normal 3-13 [facility] Comment on above: Performed By: #### L AB103, LAB15 ####Monument Mason: HIPOLITO WOODS ([id number])[facility] [place] [address] [place] Calcium [Mass/Vol] 7.6 mg/dL Low 8.8-10.0 [facility] Comment on above: Performed By: #### L AB103, LAB15 ####Monument Mason: HIPOLITO WOODS ([id number])[facility] [place] [address] [place] Chloride [Moles/Vol] 111 mmol/L High 98-[address] [facility] Comment on above: Performed By: #### L AB103, LAB15 ####Monument Mason: HIPOLITO WOODS ([id number])[facility] ([facility])[address] [place] [address] CO2 [Moles/Vol] 22 mmol/L Low 23-31 [facility] Comment on above: Performed By: #### L AB103, LAB15 ####Monument Mason: HIPOLITO WOODS ([id number])[facility] ([facility])[address] [place] [address] Creatinine [Mass/Vol] 0.86 mg/dL Normal 0.72-1.25 [facility] Comment on above: Performed By: #### L AB103, LAB15 ####Monument Mason: HIPOLITO WOODS ([id number])[facility] ([facility])[address] [place] [address] GLOMERULAR FILTRATION RATE ML/MIN/1.73 SQ M.PREDICTED >90.0 Normal >60.0 [facility] Comment on above: Result Comment: Calc ulation based on the Chronic Kidney Disease Epidemiology Collaboration (CKD-EPI) equation refit without adjustment for race Performed By: #### L AB103, LAB15 ####Monument Mason: HIPOLITO WOODS ([id number])[facility] ([facility])[address] [place] [address] [place] Glucose [Mass/Vol] 200 mg/dL High 82-115 [facility] Comment on above: Performed By: #### L AB103, LAB15 ####Monument Mason: HIPOLITO WOODS ([id number])[facility] [place] [address] Potassium [Moles/Vol] 3.4 mmol/L Low 3.5-5.1 [facility] Comment on above: Result Comment: [facility] potassium values may be up to 0.5 mmol/L lower than serum values. Performed By: #### L AB103, LAB15 ####Monument Mason: HIPOLITO WOODS ([id number])[facility] ([facility])[address] [place] [address] Sodium [Moles/Vol] 138 mmol/L Normal 136-145 [facility] Comment on above: Performed By: #### L AB103, LAB15 ####Monument Mason: HIPOLITO WOODS ([id number])[facility] ([facility])[address] [place] [address] Urea nitrogen [Mass/Vol] 24 mg/dL High 9-23 [facility] Comment on above: Performed By: #### L AB103, LAB15 ####Monument Mason: HIPOLITO WOODS ([id number])[facility] [place] [address] Basic metabolic 1998 panelon 02-03-2025 Anion gap [Moles/Vol] 5 mmol/L 3 - 13 mmol/L [facility] Calcium [Mass/Vol] 7.6 mg/dL Low 8.8 - 10. 0 mg/dL [facility] Chloride [Moles/Vol] 111 mmol/L High 98 - 10 7 mmol/L [facility] CO2 [Moles/Vol] 22 mmol/L Low 23 - 31 mmol/L [facility] Creatinine [Mass/Vol] 0.86 mg/dL 0.72 - 1.25 mg/dL [facility] GFR/1.73 sq M.predicted (S/P/Bld) [Vol rate/Area] - PINF [facility] Glucose [Mass/Vol] 200 mg/dL High 82 - 115 mg/dL [facility] Interpretation and review of laboratory results Abnormal [facility] Potassium [Moles/Vol] 3.4 mmol/L Low 3.5 - 5.1 mmol/L [facility] Sodium [Moles/Vol] 138 mmol/L 136 - 145 mmol/L [facility] Urea nitrogen [Mass/Vol] 24 mg/dL High 9 - 23 mg/d L [facility] CBC (HEMOGRAM)on 02-03-2025 Erythrocyte distribution width (RBC) [Ratio] 12.7 % Normal 11.5-15.0 [facility] Comment on above: Performed By: #### L AB294 ####Monument Mason: HIPOLITO WOODS ([id number])[facility])[address] [place] [address] Hematocrit (Bld) [Volume fraction] 23.0 % Low 40.0-52.0 [facility] Comment on above: Performed By: #### L AB294 ####Monument Mason: HIPOLITO WOODS ([id number])[address] Hemoglobin (Bld) [Mass/Vol] 7.5 g/dL Low 13.0-18.0 [facility] Comment on above: Performed By: #### L AB294 ####Monument Mason: HIPOLITO WOODS ([id number])[address] MCH (RBC) [Entitic mass] 31.0 pg Normal 26.0-34.0 [facility] Comment on above: Performed By: #### L AB294 ####Monument Mason: HIPOLITO WOODS ([id number])[address] MCHC 32.6 % Normal 30.5-36.0 [facility] Comment on above: Performed By: #### L AB294 ####Monument Mason: HIPOLITO WOODS ([id number])[address] MCV (RBC) [Entitic vol] 95.0 fL Normal 77.0-99.0 [facility] Comment on above: Performed By: #### L AB294 ####Monument Mason: HIPOLITO [id number])[facility] [address] Platelet mean volume (Bld) [Entitic vol] 10.6 fL Normal 9.0-12.7 [facility] Comment on above: Performed By: #### L AB294 ####Monument Mason: HIPOLITO WOODS ([id number])[facility] ([facility])[address] [place] [address] Platelets (Bld) [#/Vol] 213 10*3/uL Normal 140-440 [facility] Comment on above: Performed By: #### L AB294 ####Monument Mason: HIPOLITO WOODS ([id number])[facility] ([facility])[address] [place] [address] RBC (Bld) [#/Vol] 2.42 10*6/uL Low 4.40-5.90 [facility] Comment on above: Performed By: #### L AB294 ####Monument Mason: HIPOLITO WOODS ([id number])[facility] ([facility])[address] [place] [address] WBC (Bld) [#/Vol] 5.7 10*3/uL Normal 3.6-10.7 [facility] Comment on above: Performed By: #### L AB294 ####Monument Mason: HIPOLITO WOODS ([id number])[facility] ([facility])[address] [place] [address] CBC panel Auto (Bld)on 02-03 Erythrocyte distribution width (RBC) [Ratio] 12.7 % 11.5 - 15.0 % [facility] Hematocrit (Bld) [Volume fraction] 23 % Low 40.0 - 52.0 % [facility] Hemoglobin (Bld) [Mass/Vol] 7.5 g/dL Low 13.0 - 18.0 g/dL [facility] Interpretation and review of laboratory results Abnormal [facility] MCH (RBC) [Entitic mass] 31 pg 26. 0 - 34.0 pg [facility] MCHC (RBC) [Mass/Vol] 32.6 % 30.5 - 36.0 % [facility] MCV (RBC) [Entitic vol] 95 fL 77.0 - 99.0 fL [facility] Platelet mean volume (Bld) [Entitic vol] 10.6 fL 9.0 - 12.7 fL [facility] Platelets (Bld) [#/Vol] 213 10*3/uL 140 - 440 10*3/uL [facility] RBC (Bld) [#/Vol] 2.42 10*6/uL Low 4.40 - 5.9 0 10*6/uL [facility] WBC (Bld) [#/Vol] 5.7 10*3/uL 3.6 - 10.7 10*3/uL [facility] Laboratory - Chemistry and C hemistry - challengeon 02-03-2025 Glucose [Mass/Vol] 187 mg/dL High 70 - 100 mg/dL [facility] Glucose [Mass/Vol] 290 mg/dL High 70 - 100 mg/dL [facility] Glucose [Mass/Vol] 220 mg/dL High 70 - 100 mg/dL [facility] Magnesium [Mass/Vol] 1.6 mg/dL 1.6 - 2 .6 mg/dL [facility] MAGNESIUMon 02-03-2025 Magnesium [Mass/Vol] 1.6 mg/dL Normal 1.6-2.6 [facility] Comment on above: Result Comment: TOM Peterson COMMENTS: Higher values can be expected in females during menses. Performed By: #### L AB103, LAB15 ####Monument Mason: HIPOLITO WOODS ([id number])[facility] ([address] Magnesium [Mass/Vol]on 02-03 Interpretation and review of laboratory results Normal [facility] No Panel Informationon 02-03 Interpretation and review of laboratory results Abnormal [facility] Interpretation and review of laboratory results Abnormal [facility] Interpretation and review of laboratory results Abnormal [facility] Nursing Noteon 02-03-2025 Nursing Note Wound Care consulted for Pressure Injury Prevention. Pt's Marcin= 20, pt is no longer at risk at this time. Skin Care Precaution order set in place. Dietitian consult in place. PT/OT consults in place. Will continue to follow peripherally. Please vocera or secure chat message with any questions. Tatiana ISLASN, RN [facility] Progress Noteon 02-03-2025 Progress Note OCCUPATIONAL THERAPY [facility] Name/MRN: Ryna Macedo ([id number]) Date: 02/03/2025 Pt is alert and oriented to where they can understand that therapy was being offered to them. Evaluation was offered and patient refused. The reason stated by patient for refusal was due to feeling tired/fatigued. The therapist explained the proposed treatment, the expected benefits and outcome of the treatment and possible medical consequences/risks of refusal. Fam Dorsey OT [facility] Progress Note PHYSICAL THERAPY [facility] Treatment Note Name/MRN: Ryan Macedo ([id number]) Date of : 1955 Age: 69 y.o. Room/Bed: T1-121/T1-121 A Discharge Recommendation: Home with assist PRN, Home with Home health PT Equipment Needed: Yes Mobility Devices: Walker Walker: Rolling Prior Level of Function Prior Level of ADL Function: Independent Prior Level of Mobility: Independent; Device: None Prior Level of Transfers: Independent Assessment Pt requires CGA for ambulation, SBA for transfers and gait. No PT goals met this session. Recommend home with assist and HHPT. Subjective Pt is sitting up in the chair, agrees to PT. Pain: Wick-Erickson Pain Ratin = Hurts a little bit Pain Location: chest/incision Medical Precautions: No active isolations Proper PPE donned/doffed in accordance with facility standards. Fall Risk: Staley Fall Risk Score: 35 (Medium Risk) Precautions/Restricti ons: Sternal Precautions: No lifting greater than 10 lbs. Ok for modified UE precautions using Keep Your Move in the Tube technique Lines/Drains/Airways: x2 chest tubes, sanchez, tele, on RA initially, R I.I triple lumen Overall Cognitive Status: WFL Overall Orientation Status: Oriented to Place and Oriented to Person Family/Caregiver Present: none Objective Transfers/Mobility Sit to stand: SBA Stand to sit: SBA Ambulation Ambulation 1 Assistive device(s) used: None Assist level: Contact Guard Distance (ft): 100 ft x 2, 150 ft Balance During Session: Static stand without device with SBA Stairs Stairs 1 Assistive device(s) used: None Assist level: SBA # of steps: 4 Rails: right Additional factors: reciprocal going up, reciprocal going down Plan Continue acute PT per plan of care. Safety/Education Safety Safety Devices in place: All fall risk precautions in place, call light within reach, left in chair, and no alarms engaged upon entry Restraints: No Education Education Given To: patient Education Provided: PT Role, PT Goals, Gait Training, Plan of Care, Home Exercise Program, Precautions, Transfer Training, and Discharge Recommendations Education Method: Verbal Barriers to Learning: None Education Outcome: Verbalized Understanding and Continued Education Needed Outcome Measures AM-PAC AM-PAC Inpatient Mobility Raw Score : 17 AM-PAC Inpatient Mobility Raw Score (No Stairs) : 14 JH-HLM JH-HLM Scale: Walked 250 ft or more (i.e. several laps on unit) Goals Patient Stated Goal: To reduce pain and nausea and be Indep again Encounter Problems Encounter Problems (Active) Cardiac Patient will perform bed mobility with independence in order to improve independence and prepare for out of bed mobility. (Not Addressed) Start: 01/30/25 Expected End: 02/13/25 Patient will complete sit to stand transfer with independence to none in order to improve safety and prepare for out of bed mobility. (Progressing) Start: 01/30/25 Expected End: 02/13/25 Patient will ambulate 300 feet or ambulate 5 minutes with modified independence with RPE of 14 or lower. (Progressing) Start: 01/30/25 Expected End: 02/13/25 Patient will ascend and descend 4 # stairs with modified independence rail for balance only. (Progressing) Start: 01/30/25 Expected End: 02/13/25 Patient will be independent with P&C exercises. (Progressing) Start: 01/30/25 Expected End: 02/13/25 Patient will be independent with managing secretions and home walking program. (Progressing) Start: 01/30/25 Expected End: 02/13/25 Therapy Time Individual Co-treatment Time In 1057 Time Out 1115 Minutes 18 Timed Code Treatment Minutes: (gt) Miguelina Ortiz PTA [facility] Progress Note - Attestation signed by Martell Mora MD at 02/03/2025 1:47 PM I have personally performed a face to face diagnostic evaluation on this patient. In addition, I have reviewed the resident's/SAW SETTER/SAS CLINICAL PROGRAMMER's care plan and agree with those findings I have performed a substantive portion of the the medical decision making. My findings are as follows: Patient takes 2 mg daily at 12 with metformin and Ozempic 1 mg weekly A1c before surgery 6.8% Reported reasonable blood sugar readings at home Status post CABG Now on basal bolus insulin during hospitalization Blood sugar readings are elevated Vitals: BP 124/62 (BP Location: Right arm, Patient Position: Sitting) Pulse 62 Temp 36.2 ?C (97.2 ?F) (Temporal) Resp 16 Ht 6' 4 (1.93 m) Wt 207 lb 3.7 oz (94 kg) SpO2 98% BMI 25.23 kg/m? 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 I counseled patient in the future that is appropriate to consider increasing Ozempic to 2 mg weekly and discontinuing the glimepiride. Also he could benefit from SGLT2 inhibitor I spent 35 minutes with the pt which involved in coordination of care, medical evaluation, review of records, and/or counseling of the pt regarding his/her condition/disease state/prognosis on the date of this note. Old records including available PCP, ED notes and or other specialists notes are reviewed. LABs and/or imaging are reviewed as detailed in the resident's/SAW SETTER/SAS CLINICAL PROGRAMMER's note Department of Internal Medicine Division of Endocrinology, Diabetes, & Metabolism Endocrinology Note Patient Name: Ryan Macedo : 1955 AGE: 69 y.o. Room/Bed: T1-121/T1-121 A Admission Date: 01/29/2025 Visit Date: 02/03/2025 Reason for Endocrine Consult: post heart Provider/Team Requesting Consult: cts PCP: MIRIAM GOMEZ Outpt Travel Assistant: No ASSESSMENT: Stress hyperglycemia DM2 with hyperglycemia without exterminator termite insulin CABGx3 Htn/hld/cad PLAN: -Blood sugar elevated -Increase lantus 220 daily -Increase Humalog to moderate sliding scale meals -Increase Humalog 10/10/10 units tid meals ICU goal <180 GMF goal <150 POCT BG ACHS Hypoglycemia management per protocol Carb controlled diet ANTICIPATED ENDOCRINE HOME GOING RECOMMENDATIONS: Optimized for Discharge from Endocrine standpoint: No Home Going Endocrine Rx Recommendations-- TBD-Home regimen glimepiride, metformin, Ozempic Consider SGLT2 possibly Has home glucometer already Outpt Follow Up-- PCP SUBJECTIVE/HPI: CHIEF COMPLAINT: No chief complaint on file. S/p CABGx3 Noted hx of DM2 upon chart review, sees PCP for this. Not on insulin only oral medications No history of thyroid disease Interval events 02-03: Blood sugar elevated, insulin adjusted today Awake alert ambulating in room up in bathroom Vitals are stable Did eat a bagel this morning for breakfast No nausea vomiting noted Spoke with team and family in the room interval 02/02 Appetite improving, no abd pain, n/v. at bedside. POC glucose and insulin administration for last 24h reviewed. Interval 02/01 Ate bkfast, no abd pain, n/v. at bedside. POC glucose and insulin administration for last 24h reviewed. Interval events 01-31: BGL stable on insulin gtt 1.5/hr-plan to tx off Up awake VSS RA Walking in halls CT in place Ate small bfast- burundian toast No nv noted Spoke with team Family present BGL below Stable on insulin gtt 3/hr No A1c in chart or Care Everywhere order placed to check lab level add on No pressors are currently on Patient is awake alert extubated VSS RA Family in room Confirmed his home diabetes medication regimen, sees PCP for this He is already on a GLP-1, states he has never been on Jardiance or Farxiga before Has a home glucometer, states that his ranges between 80-100 recently, no noted lows Did have some nausea vomiting this morning, had a few bites of breakfast X 2 chest tubes are in place Spoke with team Type of DM: 2 Onset of DM: Over 25 years ago Home DM Medication Regimen: glimipiride 2 mg daily, metformin 500 mg tid (2 tabs a.m., 1 tab lunch, 2 tabs p.m.), ozempic 1 mg weekly on Wednesdays DM control (last A1c/glucose data): (more content not included)... Normal [facility] Progress Note Chest tubes assessed , no air leak. Chest tube removed without issues. Discussed with nursing and patient. Angela Mandel, OUTDOOR FITNESS TRAINER - ELECTRICAL ENGINEERING PROFESSOR 02/03/25 Normal [facility] XR CHEST 1 VIEWon 02-03-2025 XR CHEST 1 VIEW Patient Name: RYAN MACEDO : 1955 Exam Date/Time: 02/03/2025 05:15 Procedure: XR CHEST 1 VIEW Ordering Provider: SHEIKH ANDREW Reason For Exam: Shortness of breath CHEST - PORTABLE: CLINICAL INDICATION: Shortness of breath. TECHNIQUE: Portable AP COMPARISON: One day ago FINDINGS: Tubes, lines and devices: Chest tubes and mediastinal drain Heart/Mediastinum: Unchanged Lungs/Pleura: No new consolidation. There is some increased density at the lung bases, probably atelectasis The costophrenic angles are obscured. IMPRESSION: Atelectasis remains at the lung bases Report Dictated on Electronically Signed By: Edmundo Cordoba MD Electronically Signed Date/Time: 02/03/2025 5:58 AM EDT Normal [facility] XR Chest Single viewon 02-03 [facility] Radiology Study observation (narrative) [facility] BASIC METABOLIC PANELon 01-07 Anion gap [Moles/Vol] 12 mmol/L Normal 3-13 [facility] Comment on above: Performed By: #### L AB103, LAB15 #### Monument Mason: HIPOLITO WOODS ([id number]) [facility] [address] [place] [address] Calcium [Mass/Vol] 8.9 mg/dL Normal 8.8-10.0 [facility] Comment on above: Performed By: #### L AB103, LAB15 #### Monument Mason: HIPOLITO WOODS ([id number]) [facility] [address] [place] [address] Chloride [Moles/Vol] 103 mmol/L Normal 98-[address] [facility] Comment on above: Performed By: #### L AB103, LAB15 #### Monument Mason: HIPOLITO WOODS ([id number]) [facility] [address] [place] [address] CO2 [Moles/Vol] 21 mmol/L Low 23-31 [facility] Comment on above: Performed By: #### L AB103, LAB15 #### Monument Mason: HIPOLITO WOODS ([id number]) [facility] [address] [place] [address] Creatinine [Mass/Vol] 1.10 mg/dL Normal 0.72-1.25 [facility] Comment on above: Performed By: #### L AB103, LAB15 #### Monument Mason: HIPOLITO WOODS ([id number]) [facility] [address] [place] [address] GLOMERULAR FILTRATION RATE ML/MIN/1.73 SQ M.PREDICTED 72.2 mL/min/1.73m*2 Normal >60.0 [facility] Comment on above: Result Comment: Calc ulation based on the Chronic Kidney Disease Epidemiology Collaboration (CKD-EPI) equation refit without adjustment for race Performed By: #### L AB103, LAB15 #### Monument Mason: HIPOLITO WOODS ([id number]) [facility] [address] [place] [address] [place] Glucose [Mass/Vol] 336 mg/dL High 82-115 [facility] Comment on above: Performed By: #### L AB103, LAB15 #### Monument Mason: HIPOLITO WOODS ([id number]) [facility] ([facility]) [address] [place] [address] Potassium [Moles/Vol] 3.7 mmol/L Normal 3.5-5.1 [facility] Comment on above: Result Comment: [facility] potassium values may be up to 0.5 mmol/L lower than serum values. Performed By: #### L AB103, LAB15 #### Monument Mason: HIPOLITO WOODS ([id number]) [facility] ([facility]) [address] [place] [address] Sodium [Moles/Vol] 136 mmol/L Normal 136-145 [facility] Comment on above: Performed By: #### L AB103, LAB15 #### Monument Mason: HIPOLITO WOODS ([id number]) [facility] [address] [place] [address] [place] Urea nitrogen [Mass/Vol] 25 mg/dL High 9-23 [facility] Comment on above: Performed By: #### L AB103, LAB15 #### Monument Mason: HIPOLITO WOODS ([id number]) [facility] [address] [place] [address] Anion gap [Moles/Vol] 7 mmol/L Normal 3-13 [facility] Comment on above: Performed By: #### L AB103, LAB15 #### Monument Mason: HIPOLITO WOODS ([id number]) [facility] [address] [place] [address] [place] Calcium [Mass/Vol] 7.8 mg/dL Low 8.8-10.0 [facility] Comment on above: Performed By: #### L AB103, LAB15 #### Monument Mason: HIPOLITO WOODS ([id number]) [facility] ([facility]) [address] [place] [address] [place] Chloride [Moles/Vol] 109 mmol/L High 98-[address] [facility] Comment on above: Performed By: #### L AB103, LAB15 #### Monument Mason: HIPOLITO WOODS ([id number]) [facility]) [address] [place] [address] CO2 [Moles/Vol] 22 mmol/L Low 23-31 [facility] Comment on above: Performed By: #### L AB103, LAB15 #### Monument Mason: HIPOLITO WOODS ([id number]) [facility] ([facility]) [address] [place] [address] Creatinine [Mass/Vol] 0.95 mg/dL Normal 0.72-1.25 [facility] Comment on above: Performed By: #### L AB103, LAB15 #### Monument Mason: HIPOLITO WOODS ([id number]) [facility] ([facility]) [address] [place] [address] [place] GLOMERULAR FILTRATION RATE ML/MIN/1.73 SQ M.PREDICTED 86.1 mL/min/1.73m*2 Normal >60.0 [facility] Comment on above: Result Comment: Calc ulation based on the Chronic Kidney Disease Epidemiology Collaboration (CKD-EPI) equation refit without adjustment for race Performed By: #### L AB103, LAB15 #### Monument Mason: HIPOLITO WOODS ([id number]) [facility] ([facility]) [address] [place] [address] [place] Glucose [Mass/Vol] 194 mg/dL High 82-115 [facility] Comment on above: Performed By: #### L AB103, LAB15 #### Monument Mason: HIPOLITO WOODS ([id number]) [facility]) [address] [place] [address] [place] Potassium [Moles/Vol] 3.3 mmol/L Low 3.5-5.1 [facility] Comment on above: Result Comment: [facility] potassium values may be up to 0.5 mmol/L lower than serum values. Performed By: #### L AB103, LAB15 #### Monument Mason: HIPOLITO WOODS ([id number]) [facility] [address] [place] [address] Sodium [Moles/Vol] 138 mmol/L Normal 136-145 [facility] Comment on above: Performed By: #### L AB103, LAB15 #### Monument Mason: HIPOLITO WOODS ([id number]) [facility] ([facility]) [address] [place] [address] Urea nitrogen [Mass/Vol] 24 mg/dL High 9-23 [facility] Comment on above: Performed By: #### L AB103, LAB15 #### Monument Mason: HIPOLITO WOODS ([id number]) [facility] [address] [place] [address] Basic metabolic 1998 panelon 02-02-2025 Anion gap [Moles/Vol] 12 mmol/L 3 - 13 mmol/L [facility] Calcium [Mass/Vol] 8.9 mg/dL 8.8 - 10. 0 mg/dL [facility] Chloride [Moles/Vol] 103 mmol/L 98 - 10 7 mmol/L [facility] CO2 [Moles/Vol] 21 mmol/L Low 23 - 31 mmol/L [facility] Creatinine [Mass/Vol] 1.1 mg/dL 0.72 - 1.25 mg/dL [facility] GFR/1.73 sq M.predicted (S/P/Bld) [Vol rate/Area] 72.2 mL/min - PINF [facility] Glucose [Mass/Vol] 336 mg/dL High 82 - 115 mg/dL [facility] Interpretation and review of laboratory results Abnormal [facility] Potassium [Moles/Vol] 3.7 mmol/L 3.5 - 5.1 mmol/L [facility] Sodium [Moles/Vol] 136 mmol/L 136 - 145 mmol/L [facility] Urea nitrogen [Mass/Vol] 25 mg/dL High 9 - 23 mg/d L [facility] Anion gap [Moles/Vol] 7 mmol/L 3 - 13 mmol/L [facility] Calcium [Mass/Vol] 7.8 mg/dL Low 8.8 - 10. 0 mg/dL [facility] Chloride [Moles/Vol] 109 mmol/L High 98 - 10 7 mmol/L [facility] CO2 [Moles/Vol] 22 mmol/L Low 23 - 31 mmol/L [facility] Creatinine [Mass/Vol] 0.95 mg/dL 0.72 - 1.25 mg/dL [facility] GFR/1.73 sq M.predicted (S/P/Bld) [Vol rate/Area] 86.1 mL/min - PINF [facility] Glucose [Mass/Vol] 194 mg/dL High 82 - 115 mg/dL [facility] Interpretation and review of laboratory results Abnormal [facility] Potassium [Moles/Vol] 3.3 mmol/L Low 3.5 - 5.1 mmol/L [facility] Sodium [Moles/Vol] 138 mmol/L 136 - 145 mmol/L [facility] Urea nitrogen [Mass/Vol] 24 mg/dL High 9 - 23 mg/d L [facility] CALCIUM, IONIZEDon CALCIUM IONIZED 4.40 mg/dL Normal 4.30-5.20 [facility] Comment on above: Order Comment: Obtai n PRN and check ionized Ca level if serum Ca level less than 8.0 Performed By: #### L AB54 ####Monument Mason: HIPOLITO WOODS ([id number])[address] PH, IONIZED CALCIUM 7.48 High 7.31-7.46 [facility] Comment on above: Order Comment: Obtai n PRN and check ionized Ca level if serum Ca level less than 8.0 Performed By: #### L AB54 ####Monument Mason: HIPOLITO WOODS ([id number])[facility] ([facility])[address] [place] [address] CBC (HEMOGRAM)on 02-02-2025 Erythrocyte distribution width (RBC) [Ratio] 12.8 % Normal 11.5-15.0 [facility] Comment on above: Performed By: #### L [id number] ####Monument Mason: HIPOLITO WOODS ([id number])[facility] ([facility])[address] [place] [address] Hematocrit (Bld) [Volume fraction] 28.1 % Low 40.0-52.0 [facility] Comment on above: Performed By: #### L [id number] ####Monument Mason: HIPOLITO WOODS ([id number])[facility] ([facility])[address] [place] [address] Hemoglobin (Bld) [Mass/Vol] 9.4 g/dL Low 13.0-18.0 [facility] Comment on above: Performed By: #### L [id number] ####Monument Mason: HIPOLITO WOODS ([id number])[facility] ([facility])[address] [place] [address] MCH (RBC) [Entitic mass] 31.3 pg Normal 26.0-34.0 [facility] Comment on above: Performed By: #### L [id number] ####Monument Mason: HIPOLITO WOODS ([id number])[facility])[address] [place] [address] MCHC 33.5 % Normal 30.5-36.0 [facility] Comment on above: Performed By: #### L [id number] ####Monument Mason: HIPOLITO WOODS ([id number])[facility] ([facility])[address] [place] [address] MCV (RBC) [Entitic vol] 93.7 fL Normal 77.0-99.0 [facility] Comment on above: Performed By: #### L [id number] ####Monument Mason: HIPOLITO WOODS ([id number])[facility] ([facility])[address] [place] [address] Platelet mean volume (Bld) [Entitic vol] 11.6 fL Normal 9.0-12.7 [facility] Comment on above: Performed By: #### L [id number] ####Monument Mason: HIPOLITO WOODS ([id number])[facility])[address] [place] [address] Platelets (Bld) [#/Vol] 231 10*3/uL Normal 140-440 [facility] Comment on above: Performed By: #### L [id number] ####Monument Mason: HIPOLITO WOODS ([id number])[facility])[address] [place] [address] RBC (Bld) [#/Vol] 3.00 10*6/uL Low 4.40-5.90 [facility] Comment on above: Performed By: #### L [id number] ####Monument Mason: HIPOLITO WOODS ([id number])[facility])[address] [place] [address] WBC (Bld) [#/Vol] 7.3 10*3/uL Normal 3.6-10.7 [facility] Comment on above: Performed By: #### L [id number] ####Monument Mason: HIPOLITO WOODS ([id number])[facility])[address] [place] [address] Erythrocyte distribution width (RBC) [Ratio] 12.7 % Normal 11.5-15.0 [facility] Comment on above: Performed By: #### L AB294 ####Monument Mason: HIPOLITO WOODS ([id number])[facility])[address] [place] [address] Hematocrit (Bld) [Volume fraction] 21.4 % Low 40.0-52.0 [facility] Comment on above: Performed By: #### L [id number] ####Monument Mason: HIPOLITO WOODS ([id number])[address] Hemoglobin (Bld) [Mass/Vol] 7.0 g/dL Low 13.0-18.0 [facility] Comment on above: Performed By: #### L [id number] ####Monument Mason: HIPOLITO WOODS ([id number])[facility])[address] [place] [address] MCH (RBC) [Entitic mass] 31.0 pg Normal 26.0-34.0 [facility] Comment on above: Performed By: #### L [id number] ####Monument Mason: HIPOLITO WOODS ([id number])[facility])[address] [place] [address] MCHC 32.7 % Normal 30.5-36.0 [facility] Comment on above: Performed By: #### L [id number] ####Monument Mason: HIPOLITO WOODS ([id number])[facility] ([facility])[address] [place] [address] MCV (RBC) [Entitic vol] 94.7 fL Normal 77.0-99.0 [facility] Comment on above: Performed By: #### L [id number] ####Monument Mason: HIPOLITO WOODS ([id number])[facility])[address] [place] [address] Platelet mean volume (Bld) [Entitic vol] 11.8 fL Normal 9.0-12.7 [facility] Comment on above: Performed By: #### L [id number] ####Monument Mason: HIPOLITO WOODS ([id number])[facility] ([facility])[address] [place] [address] Platelets (Bld) [#/Vol] 150 10*3/uL Normal 140-440 [facility] Comment on above: Performed By: #### L [id number] ####Monument Mason: HIPOLITO WOODS ([id number])[facility] ([facility])[address] [place] [address] RBC (Bld) [#/Vol] 2.26 10*6/uL Low 4.40-5.90 [facility] Comment on above: Performed By: #### L [id number] ####Monument Mason: HIPOLITO WOODS ([id number])[facility] ([facility])[address] [place] [address] WBC (Bld) [#/Vol] 5.2 10*3/uL Normal 3.6-10.7 [facility] Comment on above: Performed By: #### L [id number] ####Monument Mason: HIPOLITO WOODS ([id number])[facility])[address] [place] [address] CBC panel Auto (Bld)Ordered By: Liat Diego on 02-02-2025 Erythrocyte distribution width (RBC) [Ratio] 12.8 % 11.5 - 15.0 % [facility] Hematocrit (Bld) [Volume fraction] 28.1 % Low 40.0 - 52.0 % [facility] Hemoglobin (Bld) [Mass/Vol] 9.4 g/dL Low 13.0 - 18.0 g/dL [facility] Interpretation and review of laboratory results Abnormal [facility] MCH (RBC) [Entitic mass] 31.3 pg 26. 0 - 34.0 pg [facility] MCHC (RBC) [Mass/Vol] 33.5 % 30.5 - 36.0 % [facility] MCV (RBC) [Entitic vol] 93.7 fL 77.0 - 99.0 fL [facility] Platelet mean volume (Bld) [Entitic vol] 11.6 fL 9.0 - 12.7 fL [facility] Platelets (Bld) [#/Vol] 231 10*3/uL 140 - 440 10*3/uL [facility] RBC (Bld) [#/Vol] 3 10*6/uL Low 4.40 - 5.9 0 10*6/uL [facility] WBC (Bld) [#/Vol] 7.3 10*3/uL 3.6 - 10.7 10*3/uL [facility] CBC panel Auto (Bld)on 02-02 Erythrocyte distribution width (RBC) [Ratio] 12.7 % 11.5 - 15.0 % [facility] Hematocrit (Bld) [Volume fraction] 21.4 % Low 40.0 - 52.0 % [facility] Hemoglobin (Bld) [Mass/Vol] 7 g/dL Low 13.0 - 18.0 g/dL [facility] Interpretation and review of laboratory results Abnormal [facility] MCH (RBC) [Entitic mass] 31 pg 26. 0 - 34.0 pg [facility] MCHC (RBC) [Mass/Vol] 32.7 % 30.5 - 36.0 % [facility] MCV (RBC) [Entitic vol] 94.7 fL 77.0 - 99.0 fL [facility] Platelet mean volume (Bld) [Entitic vol] 11.8 fL 9.0 - 12.7 fL [facility] Platelets (Bld) [#/Vol] 150 10*3/uL 140 - 440 10*3/uL [facility] RBC (Bld) [#/Vol] 2.26 10*6/uL Low 4.40 - 5.9 0 10*6/uL [facility] WBC (Bld) [#/Vol] 5.2 10*3/uL 3.6 - 10.7 10*3/uL [facility] Calcium.ionized [Moles/Vol]O rdered By: Liat Bueno on 02-02-2025 Calcium.ionized (Bld) [Moles/Vol] 4.4 mg/dL 4.30 - 5.20 mg/dL [facility] Interpretation and review of laboratory results Abnormal [facility] PH, IONIZED CALCIUM 7.48 High 7.31 - 7.46 [facility] Laboratory - Chemistry and C hemistry - challengeon 02-02-2025 Glucose [Mass/Vol] 240 mg/dL High 70 - 100 mg/dL [facility] Glucose [Mass/Vol] 289 mg/dL High 70 - 100 mg/dL [facility] Glucose [Mass/Vol] 200 mg/dL High 70 - 100 mg/dL [facility] Magnesium [Mass/Vol] 1.8 mg/dL 1.6 - 2 .6 mg/dL [facility] MAGNESIUMon 02-02-2025 Magnesium [Mass/Vol] 1.8 mg/dL Normal 1.6-2.6 [facility] Comment on above: Result Comment: TOM Peterson COMMENTS: Higher values can be expected in females during menses. Performed By: #### L AB103, LAB15 #### Monument Mason: HPIOLITO WOODS ([id number]) [facility] ([facility]) [address] [place] [address] Magnesium [Mass/Vol]on 02-02 Interpretation and review of laboratory results Normal [facility] No Panel Informationon 02-02 Interpretation and review of laboratory results Abnormal [facility] Interpretation and review of laboratory results Abnormal [facility] Interpretation and review of laboratory results Abnormal [facility] Blood Expiration Date [id number] S [facility] Crossmatch interpretation COMP [facility] Dispense Status Released from Binary Thumb [facility] [employer] Product Blood Type 5100 [facility] PRODUCT CODE [id number] [facility] Health Unit ABO O [facility] Unit Number [id number] [facility] Unit Number [id number] [facility] RH Positive [facility] Unit Volume 300 mL [facility] Progress Noteon 02-02-2025 Progress Note PHYSICAL THERAPY [facility] Treatment Note Name/MRN: Ryan Macedo ([id number]) Date of : 1955 Age: 69 y.o. Room/Bed: T1-121/T1-121 A Discharge Recommendation: Home with assist PRN, Home with Home health PT Equipment Needed: (TBD) Prior Level of Function Prior Level of ADL Function: Independent Prior Level of Mobility: Independent; Device: None Prior Level of Transfers: Independent Assessment Patient able to ambulate without Nezzie except for chest tubes and tele, so we did use Nezzie. P&c therex looked good, tends to perform very small ranges of motion but that is okay given that he still has chest tubes in and has discomfort. Is adamant about regaining his independence, prefers not to be told what to do. Discharge recommendation home with assist as needed and home health PT. Subjective Patient in bed and agreeable to therapy. Pain: Pt denies any current pain. Medical Precautions: No active isolations Proper PPE donned/doffed in accordance with facility standards. Fall Risk: Staley Fall Risk Score: 50 (High Risk) Precautions/Restricti ons: Sternal Precautions: No lifting greater than 10 lbs. Ok for modified UE precautions using Keep Your Move in the Tube technique Lines/Drains/Airways: x2 chest tubes, tele Overall Cognitive Status: WNL Overall Orientation Status: Oriented x4 Family/Caregiver Present: spouse Objective Bed Mobility Supine to sit: Supervision Scooting: Supervision HOB Elevated Transfers/Mobility Sit to stand: SBA Stand to sit: SBA Sitting balance: Modified Independent Standing balance: SBA Device(s) used: Nezzie Ambulation Ambulation 1 Assistive device(s) used: Nezzie Assist level: Contact Guard Distance (ft): 355 Quality of gait: No gait deviations Exercises Exercises Upper Extremity: P&C exercises #'s 1-9, all 10x each Plan Continue acute PT per plan of care. Safety/Education Safety Safety Devices in place: call light within reach, left in chair, and nurse notified Restraints: No Education Education Given To: patient Education Provided: Home Exercise Program Education Method: Verbal, Demonstration, and Printed Information Barriers to Learning: Agitation Education Outcome: Verbalized Understanding and Demonstrated Understanding Outcome Measures AM-PAC AM-PAC Inpatient Mobility Raw Score : 18 AM-PAC Inpatient Mobility Raw Score (No Stairs) : 14 JH-HLM JH-HLM Scale: Walked 250 ft or more (i.e. several laps on unit) Goals Patient Stated Goal: To go home Encounter Problems Encounter Problems (Active) Cardiac Patient will perform bed mobility with independence in order to improve independence and prepare for out of bed mobility. (Not Addressed) Start: 01/30/25 Expected End: 02/13/25 Patient will complete sit to stand transfer with independence to none in order to improve safety and prepare for out of bed mobility. (Progressing) Start: 01/30/25 Expected End: 02/13/25 Patient will ambulate 300 feet or ambulate 5 minutes with modified independence with RPE of 14 or lower. (Progressing) Start: 01/30/25 Expected End: 02/13/25 Patient will ascend and descend 4 # stairs with modified independence rail for balance only. (Progressing) Start: 01/30/25 Expected End: 02/13/25 Patient will be independent with P&C exercises. (Progressing) Start: 01/30/25 Expected End: 02/13/25 Patient will be independent with managing secretions and home walking program. (Progressing) Start: 01/30/25 Expected End: 02/13/25 Therapy Time Individual Co-treatment Time In 1034 Time Out 1057 Minutes 23 Timed Code Treatment Minutes: 23 Minutes (Gt, TP) Shavon Jones PTA [facility] Progress Note Department of Internal Medicine Division of Endocrinology, Diabetes, & Metabolism Endocrinology Note Patient Name: Ryan Macedo : 1955 AGE: 69 y.o. Room/Bed: T1-121/T1-121 A Admission Date: 01/29/2025 Visit Date: 02/02/2025 Reason for Endocrine Consult: post heart Provider/Team Requesting Consult: cts PCP: MIRIAM GOMEZ Outpt Travel Assistant: No ASSESSMENT: Stress hyperglycemia DM2 with hyperglycemia without exterminator termite insulin CABGx3 Htn/hld/cad PLAN: -Increase lantus 17 -Humalog low SSI -Increase Humalog 6 meals-hold if npo -Do not plan on sending home on insulin, but will remain on insulin while inpatient ICU goal <180 GMF goal <150 POCT BG ACHS Hypoglycemia management per protocol Carb controlled diet ANTICIPATED ENDOCRINE HOME GOING RECOMMENDATIONS: Optimized for Discharge from Endocrine standpoint: No Home Going Endocrine Rx Recommendations-- TBD-Home regimen glimepiride, metformin, Ozempic Consider SGLT2 possibly Has home glucometer already Outpt Follow Up-- PCP SUBJECTIVE/HPI: CHIEF COMPLAINT: No chief complaint on file. S/p CABGx3 Noted hx of DM2 upon chart review, sees PCP for this. Not on insulin only oral medications No history of thyroid disease Interval 02/02 Appetite improving, no abd pain, n/v. at bedside. POC glucose and insulin administration for last 24h reviewed. Interval 02/01 Ate bkfast, no abd pain, n/v. at bedside. POC glucose and insulin administration for last 24h reviewed. Interval events -: BGL stable on insulin gtt 1.5/hr-plan to tx off Up awake VSS RA Walking in halls CT in place Ate small bfast- burundian toast No nv noted Spoke with team Family present BGL below Stable on insulin gtt 3/hr No A1c in chart or Care Everywhere order placed to check lab level add on No pressors are currently on Patient is awake alert extubated VSS RA Family in room Confirmed his home diabetes medication regimen, sees PCP for this He is already on a GLP-1, states he has never been on Jardiance or Farxiga before Has a home glucometer, states that his ranges between 80-100 recently, no noted lows Did have some nausea vomiting this morning, had a few bites of breakfast X 2 chest tubes are in place Spoke with team Type of DM: 2 Onset of DM: Over 25 years ago Home DM Medication Regimen: glimipiride 2 mg daily, metformin 500 mg tid (2 tabs a.m., 1 tab lunch, 2 tabs p.m.), ozempic 1 mg weekly on Wednesdays DM control (last A1c/glucose data): Lab Results Component Value Date HGBA1C 6.8 (H) 01/30/2025 Glucose Date/Time Value Ref Range Status 02/02/2025 07:43 AM 200 (H) 70 - 100 mg/dL Final 02/01/2025 04:49 PM 182 (H) 70 - 100 mg/dL Final 02/01/2025 11:45 AM 212 (H) 70 - 100 mg/dL Final 02/01/2025 07:53 AM 182 (H) 70 - 100 mg/dL Final 01/31/2025 06:22 PM 230 (H) 70 - 100 mg/dL Final 01/31/2025 12:20 PM 206 (H) 70 - 100 mg/dL Final Review of Systems ROS negative except for those mentioned in HPI. OBJECTIVE: Vitals: 02/02/25 0700 02/02/25 0800 02/02/25 0930 02/02/25 1000 BP: 145/87 145/76 128/65 112/61 BP Location: Right arm Patient Position: Sitting Pulse: 74 71 78 66 Resp: 20 Temp: 36.5 ?C (97.7 ?F) TempSrc: Temporal SpO2: 98% 97% 99% 97% Weight: Height: Physical Exam Vitals and nursing note reviewed. Constitutional: General: He is not in acute distress. Appearance: He is ill-appearing. He is not toxic-appearing or diaphoretic. HENT: Mouth/Throat: Mouth: Mucous membranes are moist. Cardiovascular: Rate and Rhythm: Normal rate. Pulmonary: Effort: Pulmonary effort is normal. Abdominal: Tenderness: There is no guarding. Musculoskeletal: Cervical back: Normal range of motion. Skin: General: Skin is warm and dry. Coloration: Skin is pale. Comments: Intact incision Neurological: Mental Status: He is oriented to person, place, and time. Mental status is at baseline. Psychiatric: Mood and Affect: Mood normal. Behavior: Behavior normal. 24 hour intake/output: Intake/Output Summary (Last 24 hours) at 02/02/2025 1024 Last data filed at 02/02/2025 0900 Gross per 24 hour Intake 747 ml Output 805 ml Net -58 ml Diet: Adult diet Regular; No Added Salt (3-4 gm); 5 carb choices (75 gm/meal) Medications (as per EMR): HomeMeds: Current Outpatient Medications Medication Instructions aspirin 81 mg, Daily cholecalciferol (VITAMIN D-3) 50 mcg, Daily coenzyme Q-10 100 mg, Daily dilTIAZem CD (CARDIZEM CD) 360 mg, Daily ezetimibe (ZETIA) 10 mg, Daily famotidine (PEPCID) 40 mg, Daily PRN glimepiride (AMARYL) 2 mg, Daily hydroCHLOROthiazide (HYDRODIURIL) 25 mg, Daily losartan (COZAAR) 100 mg, Daily metFORMIN (GLUCOPHAGE) 500 mg, 3 times daily with meals Multiple Vitamin (multivitamin) tablet 1 tablet, Daily mupirocin (Bactroban) 2 % ointment Using a q-tip, place small fingertip size amount into each nost (more content not included)... Normal [facility] XR CHEST 1 VIEWon 02-02-2025 XR CHEST 1 VIEW Patient Name: RYAN MACEDO : 1955 Exam Date/Time: 02/02/2025 05:26 Procedure: XR CHEST 1 VIEW Ordering Provider: SHEIKH ANDREW Reason For Exam: Shortness of breath CLINICAL INFORMATION: CABG. Chest tubes. Follow-up study. Portable view of the chest at 0530 hours is provided and compared to a previous study dated February 01, 2025. FINDINGS: The patient is status post CABG with the usual sternal wires and surgical clips. The cardiac silhouette and mediastinum are otherwise unremarkable. Mediastinal and bilateral chest tubes are in place. There is a tiny right apical pneumothorax. IMPRESSION: 1. Postoperative changes (CABG). 2. Chest tubes with a tiny right apical pneumothorax. Report Dictated on Electronically Signed By: Edmundo Xiao MD Electronically Signed Date/Time: 02/02/2025 8:18 AM EDT Normal [facility] XR Chest Single viewon 02-02 [facility] SYSTEM [facility] Radiology Study observation (narrative) [facility] XR Chest Single viewOrdered By: Edmundo Xiao on 02-02-2025 [facility] [employer] Work Phone: BASIC METABOLIC PANELon 01-07 Anion gap [Moles/Vol] 9 mmol/L Normal 3-13 [facility] Comment on above: Performed By: #### L AB15 ####Monument Mason: HIPOLITO WOODS ([id number])[facility] ([facility])[address] [place] [address] Calcium [Mass/Vol] 9.0 mg/dL Normal 8.8-10.0 [facility] Comment on above: Performed By: #### L AB15 ####Monument Mason: HIPOLITO WOODS ([id number])[facility] [place] [address] Chloride [Moles/Vol] 102 mmol/L Normal 98-[address] [facility] Comment on above: Performed By: #### L AB15 ####Monument Mason: HIPOLITO WOODS ([id number])[facility] [place] [address] CO2 [Moles/Vol] 24 mmol/L Normal 23-31 [facility] Comment on above: Performed By: #### L AB15 ####Monument Mason: HIPOLITO WOODS ([id number])[facility] ([facility])[address] [place] [address] Creatinine [Mass/Vol] 1.06 mg/dL Normal 0.72-1.25 [facility] Comment on above: Performed By: #### L AB15 ####Monument Mason: HIPOLITO WOODS ([id number])[facility] ([facility])[address] [place] [address] [place] GLOMERULAR FILTRATION RATE ML/MIN/1.73 SQ M.PREDICTED 75.5 mL/min/1.73m*2 Normal >60.0 [facility] Comment on above: Result Comment: Calc ulation based on the Chronic Kidney Disease Epidemiology Collaboration (CKD-EPI) equation refit without adjustment for race Performed By: #### L AB15 ####Monument Mason: HIPOLITO WOODS ([id number])[facility] [place] [address] [place] Glucose [Mass/Vol] 189 mg/dL High 82-115 [facility] Comment on above: Performed By: #### L AB15 ####Monument Mason: HIPOLITO WOODS ([id number])[facility] [place] [address] Potassium [Moles/Vol] 3.7 mmol/L Normal 3.5-5.1 [facility] Comment on above: Result Comment: [facility] potassium values may be up to 0.5 mmol/L lower than serum values. Performed By: #### L AB15 ####Monument Mason: HIPOLITO WOODS ([id number])[facility] [place] [address] Sodium [Moles/Vol] 135 mmol/L Low 136-145 [facility] Comment on above: Performed By: #### L AB15 ####Monument Mason: HIPOLITO WOODS ([id number])[facility] [place] [address] Urea nitrogen [Mass/Vol] 21 mg/dL Normal 9-23 [facility] Comment on above: Performed By: #### L AB15 ####Monument Mason: HIPOLITO WOODS ([id number])[facility] [place] [address] Anion gap [Moles/Vol] 6 mmol/L Normal 3-13 [facility] Comment on above: Performed By: #### L AB103, LAB15 #### Monument Mason: HIPOLITO WOODS ([id number]) [facility] [address] [place] [address] [place] Calcium [Mass/Vol] 7.2 mg/dL Low 8.8-10.0 [facility] Comment on above: Performed By: #### L AB103, LAB15 #### Monument Mason: HIPOLITO WOODS ([id number]) [facility] [address] [place] [address] [place] Chloride [Moles/Vol] 111 mmol/L High 98-107 [facility] Comment on above: Performed By: #### L AB103, LAB15 #### Monument Mason: HIPOLITO WOODS ([id number]) [facility] ([facility]) [address] [place] [address] [place] CO2 [Moles/Vol] 20 mmol/L Low 23-31 [facility] Comment on above: Performed By: #### L AB103, LAB15 #### Monument Mason: HIPOLITO WOODS ([id number]) [facility] [address] [place] [address] Creatinine [Mass/Vol] 0.82 mg/dL Normal 0.72-1.25 [facility] Comment on above: Performed By: #### L AB103, LAB15 #### Monument Mason: HIPOLITO WOODS ([id number]) [facility] ([facility]) [address] [place] [address] GLOMERULAR FILTRATION RATE ML/MIN/1.73 SQ M.PREDICTED >90.0 Normal >60.0 [facility] Comment on above: Result Comment: Calc ulation based on the Chronic Kidney Disease Epidemiology Collaboration (CKD-EPI) equation refit without adjustment for race Performed By: #### L AB103, LAB15 #### Monument Mason: HIPOLITO WOODS ([id number]) [facility] ([facility]) [address] [place] [address] [place] Glucose [Mass/Vol] 190 mg/dL High 82-115 [facility] Comment on above: Performed By: #### L AB103, LAB15 #### Monument Mason: HIPOLITO WOODS ([id number]) [facility] ([facility]) [address] [place] [address] Potassium [Moles/Vol] 3.0 mmol/L Low 3.5-5.1 [facility] Comment on above: Result Comment: [facility] potassium values may be up to 0.5 mmol/L lower than serum values. Performed By: #### L AB103, LAB15 #### Monument Mason: HIPOLITO WOODS ([id number]) [facility] [address] [place] [address] Sodium [Moles/Vol] 137 mmol/L Normal 136-145 [facility] Comment on above: Performed By: #### L AB103, LAB15 #### Monument Mason: HIPOLITO WOODS ([id number]) [facility] ([facility]) [address] [place] [address] Urea nitrogen [Mass/Vol] 18 mg/dL Normal 9-23 [facility] Comment on above: Performed By: #### L AB103, LAB15 #### Monument Mason: HIPOLITO WOODS ([id number]) [facility] [address] [place] [address] Basic metabolic 1998 panelon 02-01-2025 Anion gap [Moles/Vol] 9 mmol/L 3 - 13 mmol/L [facility] Calcium [Mass/Vol] 9 mg/dL 8.8 - 10. 0 mg/dL [facility] Chloride [Moles/Vol] 102 mmol/L 98 - 10 7 mmol/L [facility] CO2 [Moles/Vol] 24 mmol/L 23 - 31 mmol/L [facility] Creatinine [Mass/Vol] 1.06 mg/dL 0.72 - 1.25 mg/dL [facility] GFR/1.73 sq M.predicted (S/P/Bld) [Vol rate/Area] 75.5 mL/min - PINF [facility] Glucose [Mass/Vol] 189 mg/dL High 82 - 115 mg/dL [facility] Interpretation and review of laboratory results Abnormal [facility] Potassium [Moles/Vol] 3.7 mmol/L 3.5 - 5.1 mmol/L [facility] Sodium [Moles/Vol] 135 mmol/L Low 136 - 145 mmol/L [facility] Urea nitrogen [Mass/Vol] 21 mg/dL 9 - 23 mg/d L [facility] Anion gap [Moles/Vol] 6 mmol/L 3 - 13 mmol/L [facility] Calcium [Mass/Vol] 7.2 mg/dL Low 8.8 - 10. 0 mg/dL [facility] Chloride [Moles/Vol] 111 mmol/L High 98 - 10 7 mmol/L [facility] CO2 [Moles/Vol] 20 mmol/L Low 23 - 31 mmol/L [facility] Creatinine [Mass/Vol] 0.82 mg/dL 0.72 - 1.25 mg/dL [facility] GFR/1.73 sq M.predicted (S/P/Bld) [Vol rate/Area] - PINF [facility] Glucose [Mass/Vol] 190 mg/dL High 82 - 115 mg/dL [facility] Potassium [Moles/Vol] 3 mmol/L Low 3.5 - 5.1 mmol/L [facility] Sodium [Moles/Vol] 137 mmol/L 136 - 145 mmol/L [facility] Urea nitrogen [Mass/Vol] 18 mg/dL 9 - 23 mg/d L [facility] CALCIUM, IONIZEDon CALCIUM IONIZED 4.60 mg/dL Normal 4.30-5.20 [facility] Comment on above: Performed By: #### L AB54 ####Monument Mason: HIPOLITO WOODS ([id number])[facility])[address] [place] [address] PH, IONIZED CALCIUM 7.43 Normal 7.31-7.46 [facility] Comment on above: Performed By: #### L AB54 ####Monument Mason: HIPOLITO WOODS ([id number])[facility])[address] [place] [address] CBC (HEMOGRAM)on 02-01-2025 Erythrocyte distribution width (RBC) [Ratio] 12.9 % Normal 11.5-15.0 [facility] Comment on above: Performed By: #### L AB103, LAB15 #### Monument Mason: HIPOLITO WOODS ([id number]) [facility]) [address] [place] [address] Hematocrit (Bld) [Volume fraction] 25.2 % Low 40.0-52.0 [facility] Comment on above: Performed By: #### L AB103, LAB15 #### Monument Mason: HIPOLITO [id number]) [facility]) [address] [place] [address] Hemoglobin (Bld) [Mass/Vol] 8.4 g/dL Low 13.0-18.0 [facility] Comment on above: Performed By: #### L AB103, LAB15 #### Monument Mason: HIPOLITO [id number]) [facility] [address] [place] [address] MCH (RBC) [Entitic mass] 31.5 pg Normal 26.0-34.0 [facility] Comment on above: Performed By: #### L AB103, LAB15 #### Monument Mason: HIPOLITO WOODS ([id number]) [facility] ([facility]) [address] [place] [address] MCHC 33.3 % Normal 30.5-36.0 [facility] Comment on above: Performed By: #### L AB103, LAB15 #### Monument Mason: HIPOLITO WOODS ([id number]) [facility] ([facility]) [address] [place] [address] MCV (RBC) [Entitic vol] 94.4 fL Normal 77.0-99.0 [facility] Comment on above: Performed By: #### L AB103, LAB15 #### Monument Mason: HIPOLITO WOODS ([id number]) [facility] ([facility]) [address] [place] [address] Platelet mean volume (Bld) [Entitic vol] 11.5 fL Normal 9.0-12.7 [facility] Comment on above: Performed By: #### L AB103, LAB15 #### Monument Mason: HIPOLITO WOODS ([id number]) [facility] ([facility]) [address] [place] [address] Platelets (Bld) [#/Vol] 153 10*3/uL Normal 140-440 [facility] Comment on above: Performed By: #### L AB103, LAB15 #### Monument Mason: HIPOLITO WOODS ([id number]) [facility] ([facility]) [address] [place] [address] RBC (Bld) [#/Vol] 2.67 10*6/uL Low 4.40-5.90 [facility] Comment on above: Performed By: #### L AB103, LAB15 #### Monument Mason: HIPOLITO WOODS ([id number]) [facility] ([facility]) [address] WBC (Bld) [#/Vol] 8.8 10*3/uL Normal 3.6-10.7 [facility] Comment on above: Performed By: #### L AB103, LAB15 #### Monument Mason: HIPOLITO WOODS ([id number]) [facility] ([facility]) [address] [place] [address] CBC panel Auto (Bld)on 02-01 Erythrocyte distribution width (RBC) [Ratio] 12.9 % 11.5 - 15.0 % [facility] Hematocrit (Bld) [Volume fraction] 25.2 % Low 40.0 - 52.0 % [facility] Hemoglobin (Bld) [Mass/Vol] 8.4 g/dL Low 13.0 - 18.0 g/dL [facility] Interpretation and review of laboratory results Abnormal [facility] MCH (RBC) [Entitic mass] 31.5 pg 26. 0 - 34.0 pg [facility] MCHC (RBC) [Mass/Vol] 33.3 % 30.5 - 36.0 % [facility] MCV (RBC) [Entitic vol] 94.4 fL 77.0 - 99.0 fL [facility] Platelet mean volume (Bld) [Entitic vol] 11.5 fL 9.0 - 12.7 fL [facility] Platelets (Bld) [#/Vol] 153 10*3/uL 140 - 440 10*3/uL [facility] RBC (Bld) [#/Vol] 2.67 10*6/uL Low 4.40 - 5.9 0 10*6/uL [facility] WBC (Bld) [#/Vol] 8.8 10*3/uL 3.6 - 10.7 10*3/uL [facility] Calcium.ionized [Moles/Vol]o n 02-01-2025 Calcium.ionized (Bld) [Moles/Vol] 4.6 mg/dL 4.30 - 5.20 mg/dL [facility] Interpretation and review of laboratory results Normal [facility] PH, IONIZED CALCIUM 7.43 7.31 - 7.46 [facility] - Chemistry and C hemistry - challengeon 02-01-2025 Glucose [Mass/Vol] 182 mg/dL High 70 - 100 mg/dL [facility] Glucose [Mass/Vol] 212 mg/dL High 70 - 100 mg/dL [facility] Glucose [Mass/Vol] 182 mg/dL High 70 - 100 mg/dL [facility] Magnesium [Mass/Vol] 1.3 mg/dL Low 1.6 - 2 .6 mg/dL [facility] MAGNESIUMon 02-01-2025 Magnesium [Mass/Vol] 1.3 mg/dL Low 1.6-2.[address] [facility] [address] [facility] Comment on above: Result Comment: TOM Peterson COMMENTS: Higher values can be expected in females during menses. Performed By: #### L [id number], [id number] #### Monument Mason: HIPOLITO WOODS ([id number]) [facility] ([facility]) [address] [place] [address] Magnesium [Mass/Vol]on 02-01 [facility] No Panel Informationon 02-01 Interpretation and review of laboratory results Abnormal [facility] Interpretation and review of laboratory results Abnormal [facility] Interpretation and review of laboratory results Abnormal [facility] Interpretation and review of laboratory results Abnormal [facility] Progress Noteon 02-01-2025 Progress Note PHYSICAL THERAPY [facility] Treatment Note Name/MRN: Ryan Macedo ([id number]) Date of : 1955 Age: 69 y.o. Room/Bed: T1-121/T1-121 A Discharge Recommendation: Home with assist PRN, Home with Home health PT Equipment Needed: (TBD) Prior Level of Function Prior Level of ADL Function: Independent Prior Level of Mobility: Independent; Device: None Prior Level of Transfers: Independent Assessment Pt demonstrates increased gait distance and strength with transfers. Pt required Saroj for STS from EOB and required SBA for 355ft c Nezzie. Pt demonstrates good richa and safety awareness with sternal precautions. Pt would benefit from HHPT with PRN assist to increase strength and mobility with overall functional mobility. Subjective Pt sitting on EOB set up for ambulating with RN, pt agreeable to walking with PT. Pt very pleasant. Pain: RN managing pain. Medical Precautions: No active isolations Proper PPE donned/doffed in accordance with facility standards. Fall Risk: Staley Fall Risk Score: 60 (High Risk) Precautions/Restricti ons: Sternal Precautions: No lifting greater than 10 lbs. Ok for modified UE precautions using Keep Your Move in the Tube technique Lines/Drains/Airways: x2 chest tubes, tele, on RA initially, R I.I triple lumen Overall Cognitive Status: WNL Overall Orientation Status: Oriented x4 Family/Caregiver Present: significant other Objective Bed Mobility Scooting: Contact Guard Transfers/Mobility Sit to stand: Min Assist Stand to sit: Min Assist Sitting balance: SBA Standing balance: SBA, Contact Guard Pt required 3 rocks for momentum to perform STS from EOB, pt required minimal assist at end of stand d/t post lean. Pt demonstrates good safety awareness with sternal precautions. Device(s) used: [employer] Ambulation Ambulation 1 Assistive device(s) used: [employer] Assist level: SBA Distance (ft): 355ft Quality of gait: narrow DEBBY Pt ambulated around unit with SBA, pt demonstrates kyphotic posture with positioning on Nezzie (attempted to increase julius height but unable). No standing rest breaks needed. Balance During Session: Posture: fair Sitting - Static: SBA Sitting - Dynamic: SBA Standing - Static: SBA Standing - Dynamic: Contact Guard Stairs Stairs 1 Assistive device(s) used: None Assist level: Supervision # of steps: 8 Rails: left Additional factors: reciprocal going up, reciprocal going down Pt required supervision for ascending and descending stairs. No LOB or SOB noted. Exercises Exercises Upper Extremity: P&C exercises reviewed, pt fatigue from ambulation. Comments: I.S. 500-750 mL Plan Continue acute PT per plan of care. Safety/Education Safety Safety Devices in place: All fall risk precautions in place, call light within reach, left in chair, and nurse notified Restraints: No Education Education Given To: patient Education Provided: PT Role, PT Goals, Gait Training, Home Exercise Program, Precautions, Transfer Training, Energy Conservation, Family Education, and Equipment Education Method: Verbal Barriers to Learning: None Education Outcome: Verbalized Understanding Outcome Measures AM-PAC AM-PAC Inpatient Mobility Raw Score : 18 AM-PAC Inpatient Mobility Raw Score (No Stairs) : 14 JH-HLM JH-HLM Scale: Walked 250 ft or more (i.e. several laps on unit) Goals Patient Stated Goal: To go home Encounter Problems Encounter Problems (Active) Cardiac Patient will perform bed mobility with independence in order to improve independence and prepare for out of bed mobility. (Not Addressed) Start: 01/30/25 Expected End: 02/13/25 Patient will complete sit to stand transfer with independence to none in order to improve safety and prepare for out of bed mobility. (Progressing) Start: 01/30/25 Expected End: 02/13/25 Patient will ambulate 300 feet or ambulate 5 minutes with modified independence with RPE of 14 or lower. (Progressing) Start: 01/30/25 Expected End: 02/13/25 Patient will ascend and descend 4 # stairs with modified independence rail for balance only. (Progressing) Start: 01/30/25 Expected End: 02/13/25 Patient will be independent with P&C exercises. (Progressing) Start: 01/30/25 Expected End: 02/13/25 Patient will be independent with managing secretions and home walking program. (Progressing) Start: 01/30/25 Expected End: 02/13/25 Therapy Time Individual Co-treatment Time In 1347 Time Out 1410 Minutes 23 Timed Code Treatment Minutes: 23 Minutes (gtx1 fax1) Dafne Alexander PTA [facility] Progress Note Department of Internal Medicine Division of Endocrinology, Diabetes, & Metabolism Endocrinology Note Patient Name: Ryan Macedo : 1955 AGE: 69 y.o. Room/Bed: T1-121/T1-121 A Admission Date: 01/29/2025 Visit Date: 02/01/2025 Reason for Endocrine Consult: post heart Provider/Team Requesting Consult: cts PCP: MIRIAM GOMEZ Outpt Travel Assistant: No ASSESSMENT: Stress hyperglycemia DM2 with hyperglycemia without longterm insulin CABGx3 Htn/hld/cad PLAN: -Increase lantus 14 -Humalog low SSI -Increase Humalog 5 meals-hold if npo -Do not plan on sending home on insulin, but will remain on insulin while inpatient ICU goal <180 GMF goal <150 POCT BG ACHS Hypoglycemia management per protocol Carb controlled diet ANTICIPATED ENDOCRINE HOME GOING RECOMMENDATIONS: Optimized for Discharge from Endocrine standpoint: No Home Going Endocrine Rx Recommendations-- TBD-Home regimen glimepiride, metformin, Ozempic Consider SGLT2 possibly Has home glucometer already Outpt Follow Up-- PCP SUBJECTIVE/HPI: CHIEF COMPLAINT: No chief complaint on file. S/p CABGx3 Noted hx of DM2 upon chart review, sees PCP for this. Not on insulin only oral medications No history of thyroid disease Interval 02/01 Ate bkfast, no abd pain, n/v. at bedside. POC glucose and insulin administration for last 24h reviewed. Interval events -: BGL stable on insulin gtt 1.5/hr-plan to tx off Up awake VSS RA Walking in halls CT in place Ate small bfast- burundian toast No nv noted Spoke with team Family present BGL below Stable on insulin gtt 3/hr No A1c in chart or Care Everywhere order placed to check lab level add on No pressors are currently on Patient is awake alert extubated VSS RA Family in room Confirmed his home diabetes medication regimen, sees PCP for this He is already on a GLP-1, states he has never been on Jardiance or Farxiga before Has a home glucometer, states that his ranges between 80-100 recently, no noted lows Did have some nausea vomiting this morning, had a few bites of breakfast X 2 chest tubes are in place Spoke with team Type of DM: 2 Onset of DM: Over 25 years ago Home DM Medication Regimen: glimipiride 2 mg daily, metformin 500 mg tid (2 tabs a.m., 1 tab lunch, 2 tabs p.m.), ozempic 1 mg weekly on Wednesdays DM control (last A1c/glucose data): Lab Results Component Value Date HGBA1C 6.8 (H) 01/30/2025 Glucose Date/Time Value Ref Range Status 02/01/2025 07:53 AM 182 (H) 70 - 100 mg/dL Final 01/31/2025 06:22 PM 230 (H) 70 - 100 mg/dL Final 01/31/2025 12:20 PM 206 (H) 70 - 100 mg/dL Final 01/31/2025 11:10 AM 152 (H) 70 - 100 mg/dL Final 01/31/2025 10:06 AM 188 (H) 70 - 100 mg/dL Final 01/31/2025 09:12 AM 230 (H) 70 - 100 mg/dL Final Review of Systems ROS negative except for those mentioned in HPI. OBJECTIVE: Vitals: 02/01/25 0600 02/01/25 0700 02/01/25 0800 02/01/25 0844 BP: 139/71 142/74 106/70 (!) 130/107 Pulse: 69 71 78 78 Resp: Temp: TempSrc: SpO2: 93% 97% 99% Weight: 207 lb 3.7 oz (94 kg) Height: Physical Exam Vitals and nursing note reviewed. Constitutional: General: He is not in acute distress. Appearance: He is ill-appearing. He is not toxic-appearing or diaphoretic. HENT: Mouth/Throat: Mouth: Mucous membranes are moist. Cardiovascular: Rate and Rhythm: Normal rate. Pulmonary: Effort: Pulmonary effort is normal. Abdominal: Tenderness: There is no guarding. Musculoskeletal: Cervical back: Normal range of motion. Skin: General: Skin is warm and dry. Coloration: Skin is pale. Comments: Intact incision Neurological: Mental Status: He is oriented to person, place, and time. Mental status is at baseline. Psychiatric: Mood and Affect: Mood normal. Behavior: Behavior normal. 24 hour intake/output: Intake/Output Summary (Last 24 hours) at 02/01/2025 1031 Last data filed at 02/01/2025 1010 Gross per 24 hour Intake 505.73 ml Output 1335 ml Net -829.27 ml Diet: Adult diet Regular; No Added Salt (3-4 gm); 5 carb choices (75 gm/meal) Medications (as per EMR): HomeMeds: Current Outpatient Medications Medication Instructions aspirin 81 mg, Daily cholecalciferol (VITAMIN D-3) 50 mcg, Daily coenzyme Q-10 100 mg, Daily dilTIAZem CD (CARDIZEM CD) 360 mg, Daily ezetimibe (ZETIA) 10 mg, Daily famotidine (PEPCID) 40 mg, Daily PRN glimepiride (AMARYL) 2 mg, Daily hydroCHLOROthiazide (HYDRODIURIL) 25 mg, Daily losartan (COZAAR) 100 mg, Daily metFORMIN (GLUCOPHAGE) 500 mg, 3 times daily with meals Multiple Vitamin (multivitamin) tablet 1 tablet, Daily mupirocin (Bactroban) 2 % ointment Using a q-tip, place small fingertip size amount into each nostril the night before surgery. Do not occlude nasal passage. Ozempic (1 MG/DOSE) 1 mg, Weekly Scheduled Meds:Scheduled Meds[1] Continuous Infusions:Continuous Meds[2] PRN Meds:PRN Me (more content not included)... Normal [facility] XR CHEST 1 VIEWon 02-01-2025 XR CHEST 1 VIEW Patient Name: RYAN MACEDO : 1955 Exam Date/Time: 02/01/2025 05:39 Procedure: XR CHEST 1 VIEW Ordering Provider: SHEIKH ANDREW Reason For Exam: Shortness of breath CHEST - PORTABLE: CLINICAL INDICATION: Shortness of breath. TECHNIQUE: Portable AP COMPARISON: One day ago FINDINGS: Tubes, lines and devices: Right jugular venous catheter along with the mediastinal drain and chest tubes Heart/Mediastinum: Unchanged Lungs/Pleura: Tiny right apical pneumothorax without change. Ill-defined consolidation in the right lower hemithorax. No other lobar consolidation on the left. Reticular type opacities remain throughout the lungs. The costophrenic angles are obscured. IMPRESSION: Tiny right apical pneumothorax. Consolidation in the right lower hemithorax Report Dictated on Electronically Signed By: Edmundo Cordoba MD Electronically Signed Date/Time: 02/01/2025 6:51 AM EDT Normal [facility] XR Chest Single viewon 02-01 [facility] Radiology Study observation (narrative) Theodore new [id number] 01-31-2025 [id number] Patient Choice Patient Name: RYAN MACEDO Date of : 1955 All Providers Sent Referral Name: [facility] Phone: [phone] Address: [address] [place] [address] Normal [facility] BASIC METABOLIC PANELon 01-07 Anion gap [Moles/Vol] 9 mmol/L Normal 3-13 [facility] Comment on above: Performed By: #### L [id number], [id number] ####Monument Mason: HIPOLITO WOODS ([id number])[facility] [place] [address] Calcium [Mass/Vol] 9.1 mg/dL Normal 8.8-10.0 [facility] Comment on above: Performed By: #### L AB15, [id number] ####Monument Mason: HIPOLITO WOODS ([id number])[facility] [place] [address] Chloride [Moles/Vol] 106 mmol/L Normal 98-[address] [facility] Comment on above: Performed By: #### L AB15, [id number] ####Monument Mason: HIPOLITO WOODS ([id number])[facility] ([facility])[address] [place] [address] CO2 [Moles/Vol] 24 mmol/L Normal 23-31 [facility] Comment on above: Performed By: #### L AB15, [id number] ####Monument Mason: HIPOLITO WOODS ([id number])[facility] ([facility])[address] [place] [address] Creatinine [Mass/Vol] 1.06 mg/dL Normal 0.72-1.25 [facility] Comment on above: Performed By: #### L AB15, [id number] ####Monument Mason: HIPOLITO WOODS ([id number])[facility] ([facility])[address] [place] [address] [place] GLOMERULAR FILTRATION RATE ML/MIN/1.73 SQ M.PREDICTED 75.5 mL/min/1.73m*2 Normal >60.0 [facility] Comment on above: Result Comment: Calc ulation based on the Chronic Kidney Disease Epidemiology Collaboration (CKD-EPI) equation refit without adjustment for race Performed By: #### L AB15, [id number] ####Monument Mason: HIPOLITO WOODS ([id number])[facility] ([facility])[address] [place] [address] [place] Glucose [Mass/Vol] 124 mg/dL High 82-115 [facility] Comment on above: Performed By: #### L AB15, [id number] ####Monument Mason: HIPOLITO [id number])[facility] ([facility])[address] [place] [address] Potassium [Moles/Vol] 3.5 mmol/L Normal 3.5-5.1 [facility] Comment on above: Result Comment: [facility] potassium values may be up to 0.5 mmol/L lower than serum values. Performed By: #### L AB15, [id number] ####Monument Mason: HIPOLITO WOODS ([id number])[facility] [place] [address] Sodium [Moles/Vol] 139 mmol/L Normal 136-145 [facility] Comment on above: Performed By: #### L AB15, [id number] ####Monument Mason: HIPOLITO WOODS ([id number])[facility] [place] [address] Urea nitrogen [Mass/Vol] 20 mg/dL Normal 9-23 [facility] Comment on above: Performed By: #### L AB15, [id number] ####Monument Mason: HIPOLITO WOODS ([id number])[facility] [place] [address] Basic metabolic 1998 panelon 01-31-2025 Anion gap [Moles/Vol] 9 mmol/L 3 - 13 mmol/L [facility] Calcium [Mass/Vol] 9.1 mg/dL 8.8 - 10. 0 mg/dL [facility] Chloride [Moles/Vol] 106 mmol/L 98 - 10 7 mmol/L [facility] CO2 [Moles/Vol] 24 mmol/L 23 - 31 mmol/L [facility] Creatinine [Mass/Vol] 1.06 mg/dL 0.72 - 1.25 mg/dL [facility] GFR/1.73 sq M.predicted (S/P/Bld) [Vol rate/Area] 75.5 mL/min - PINF [facility] Glucose [Mass/Vol] 124 mg/dL High 82 - 115 mg/dL [facility] Interpretation and review of laboratory results Abnormal [facility] Potassium [Moles/Vol] 3.5 mmol/L 3.5 - 5.1 mmol/L [facility] Sodium [Moles/Vol] 139 mmol/L 136 - 145 mmol/L [facility] Urea nitrogen [Mass/Vol] 20 mg/dL 9 - 23 mg/d L [facility] CBC (HEMOGRAM)on 01-31-2025 Erythrocyte distribution width (RBC) [Ratio] 13.0 % Normal 11.5-15.0 [facility] Comment on above: Performed By: #### L [id number] ####Monument Mason: HIPOLITO WOODS ([id number])[facility])[address] [place] [address] Hematocrit (Bld) [Volume fraction] 28.5 % Low 40.0-52.0 [facility] Comment on above: Performed By: #### L [id number] ####Monument Mason: HIPOLITO WOODS ([id number])[address] Hemoglobin (Bld) [Mass/Vol] 9.3 g/dL Low 13.0-18.0 [facility] Comment on above: Performed By: #### L [id number] ####Monument Mason: HIPOLITO WOODS ([id number])[facility])[address] [place] [address] MCH (RBC) [Entitic mass] 31.1 pg Normal 26.0-34.0 [facility] Comment on above: Performed By: #### L [id number] ####Monument Mason: HIPOLITO WOODS ([id number])[address] MCHC 32.6 % Normal 30.5-36.0 [facility] Comment on above: Performed By: #### L [id number] ####Monument Mason: HIPOLITO [id number])[address] MCV (RBC) [Entitic vol] 95.3 fL Normal 77.0-99.0 [facility] Comment on above: Performed By: #### L [id number] ####Monument Mason: HIPOLITO [id number])[facility] ([facility])[address] [place] [address] Platelet mean volume (Bld) [Entitic vol] 11.4 fL Normal 9.0-12.7 [facility] Comment on above: Performed By: #### L [id number] ####Monument Mason: HIPOLITO WOODS ([id number])[facility])[address] [place] [address] Platelets (Bld) [#/Vol] 170 10*3/uL Normal 140-440 [facility] Comment on above: Performed By: #### L [id number] ####Monument Mason: HIPOLITO WOODS ([id number])[facility])[address] [place] [address] RBC (Bld) [#/Vol] 2.99 10*6/uL Low 4.40-5.90 [facility] Comment on above: Performed By: #### L [id number] ####Monument Mason: HIPOLITO WOODS ([id number])[facility] ([facility])[address] [place] [address] WBC (Bld) [#/Vol] 11.3 10*3/uL High 3.6-10.7 [facility] Comment on above: Performed By: #### L [id number] ####Monument Mason: HIPOLITO WOODS ([id number])[facility])[address] [place] [address] CBC panel Auto (Bld)on 01-31 Erythrocyte distribution width (RBC) [Ratio] 13 % 11.5 - 15.0 % [facility] Hematocrit (Bld) [Volume fraction] 28.5 % Low 40.0 - 52.0 % [facility] Hemoglobin (Bld) [Mass/Vol] 9.3 g/dL Low 13.0 - 18.0 g/dL [facility] Interpretation and review of laboratory results Abnormal [facility] MCH (RBC) [Entitic mass] 31.1 pg 26. 0 - 34.0 pg [facility] MCHC (RBC) [Mass/Vol] 32.6 % 30.5 - 36.0 % [facility] MCV (RBC) [Entitic vol] 95.3 fL 77.0 - 99.0 fL [facility] Platelet mean volume (Bld) [Entitic vol] 11.4 fL 9.0 - 12.7 fL [facility] Platelets (Bld) [#/Vol] 170 10*3/uL 140 - 440 10*3/uL [facility] RBC (Bld) [#/Vol] 2.99 10*6/uL Low 4.40 - 5.9 0 10*6/uL [facility] WBC (Bld) [#/Vol] 11.3 10*3/uL High 3.6 - 10.7 10*3/uL [facility] ECG 12-LEADon 01-31-2025 ECG 12-LEAD IMPRESSION: Sinus rhythm BORDERLINE ST ELEVATION, ANTERIOR LEADS Electronically Signed On 01-31-2025 10:39:50 EDT by [facility] ECG 12-LEAD IMPRESSION: Poor Baseline Suspect Atrial fibrillation less likely MAT Electronically Signed On 01-31-2025 10:24:10 EDT by [facility] Laboratory - Chemistry and C hemistry - challengeon 01-31-2025 Glucose [Mass/Vol] 230 mg/dL High 70 - 100 mg/dL [facility] Glucose [Mass/Vol] 206 mg/dL High 70 - 100 mg/dL [facility] Glucose [Mass/Vol] 152 mg/dL High 70 - 100 mg/dL [facility] Glucose [Mass/Vol] 188 mg/dL High 70 - 100 mg/dL [facility] Glucose [Mass/Vol] 230 mg/dL High 70 - 100 mg/dL [facility] Glucose [Mass/Vol] 191 mg/dL High 70 - 100 mg/dL [facility] Glucose [Mass/Vol] 156 mg/dL High 70 - 100 mg/dL [facility] Magnesium [Mass/Vol] 1.9 mg/dL 1.6 - 2 .6 mg/dL [facility] Glucose [Mass/Vol] 143 mg/dL High 70 - 100 mg/dL [facility] Glucose [Mass/Vol] 140 mg/dL High 70 - 100 mg/dL [facility] Glucose [Mass/Vol] 110 mg/dL High 70 - 100 mg/dL [facility] Laboratory - Coagulationon 0 01-31-2025 aPTT Coag (PPP) [Time] 32.9 s High 20.0 - 30.5 s [facility] INR Coag (PPP) [Relative time] 1.2 {INR} High 0.9 - 1.1 [facility] PT Coag (Bld) [Time] 12.4 s High 9.0 - 12.0 s [facility] MAGNESIUMon 01-31-2025 Magnesium [Mass/Vol] 1.9 mg/dL Normal 1.6-2.[address] [facility] Comment on above: Result Comment: TOM Peterson COMMENTS: Higher values can be expected in females during menses. Performed By: #### L AB15, [id number] ####Monument Mason: HIPOLITO WOODS ([id number])[facility] ([address] Magnesium [Mass/Vol]on 01-31 Interpretation and review of laboratory results Normal [facility] No Panel Informationon 01-31 Interpretation and review of laboratory results Abnormal [facility] Interpretation and review of laboratory results Abnormal [facility] Interpretation and review of laboratory results Abnormal [facility] P [place] 84 degrees [facility] Interval 149 ms [facility] QRS [place] 4 degrees [facility] QRSD Interval 91 ms [facility] h QT Interval 383 ms [facility] QTC Interval 466 ms [facility] T Wave [place] 45 degrees [facility] CV EPIPHANY [facility] P [place] 0 degrees [facility] [place] Interval 172 ms [facility] QRS [place] 10 degrees [facility] QRSD [facility]val [address] [facility] Interval 322 ms [facility] QTC Interval 454 ms [facility] T Wave [place] 0 degrees [facility] CV EPIPHANY [facility] Interpretation and review of laboratory results Abnormal [facility] Interpretation and review of laboratory results Abnormal [facility] Interpretation and review of laboratory results Abnormal [facility] Interpretation and review of laboratory results Abnormal [facility] Interpretation and review of laboratory results Abnormal [facility] Interpretation and review of laboratory results Abnormal [facility] Interpretation and review of laboratory results Abnormal [facility] Interpretation and review of laboratory results Abnormal [facility] Nursing Noteon 01-31-2025 Nursing Note Patient up in chair from approx 0245 to 0500. Returned to bed per pt request d/t discomfort. Pt denying to ambulate at this time. Normal [facility] PROTIME AND APTTon aPTT Coag (Bld) [Time] 32.9 s High 20.0-30.5 [facility] Comment on above: Performed By: #### L [id number] ####Monument Mason: HIPOLITO WOODS ([id number])[facility])[address] [place] [address] INR Coag (PPP) [Relative time] 1.2 {INR} High 0.9-1.1 [facility] Comment on above: Result Comment: Mino mmended Anticoagulant Therapy: SEE BELOW ----- INR of 2.0 - 3.0 : - Prophylaxis of Venous Thrombosis (high-risk surgery) - Treatment of Venous Thrombosis - Treatment of Pulmonary Embolism (Includes tissue heart valves, Acute Myocardial Infarction to prevent systemic embolism, Valvular Heart Disease, and Atrial Fibrillation) ----- INR of 2.5 - 3.5 : - Mechanical Prosthetic Valves (high risk) - If oral anticoagulant therapy is used to prevent Myocardial Infarction Performed By: #### L [id number] ####[place]ument Mason: HIPOLITO WOODS ([id number])[address] PT Coag (PPP) [Time] 12.4 s High 9.0-12.[address] [facility] Comment on above: Performed By: #### L [id number] ####[place] Mason: HIPOLITO WOODS ([id number])[address] Progress Noteon 01-31-2025 Progress Note Physician Response Please review the following and provide your response below. Please clarify which of the following accurately describes the patient's lab value: Acquired Hypofibrinogenemia This documentation will become part of the patient's medical record. Normal [facility] Progress Note PHYSICAL THERAPY [facility] Treatment Note Name/MRN: Ryan Macedo ([id number]) Date of : 1955 Age: 69 y.o. Room/Bed: T1-121/T1-121 A Discharge Recommendation: Home with assist PRN, Home with Home health PT Equipment Needed: (TBD) Prior Level of Function Prior Level of ADL Function: Independent Prior Level of Mobility: Independent; Device: None Prior Level of Transfers: Independent Assessment Pt was able to complete P&C exercises within his available range. No PT goals met this session. Recommend home with assist and HHPT at discharge. Subjective Pt is supine in the bed, agrees to PT for exercises only with encouragement. Declined mobility. Pain: Wick-Erickson Pain Ratin = Hurts whole lot Pain Location: chest/incision, but does not want pain meds Medical Precautions: No active isolations Proper PPE donned/doffed in accordance with facility standards. Fall Risk: Staley Fall Risk Score: 45 (High Risk) Precautions/Restricti ons: Sternal Precautions: No lifting greater than 10 lbs. Ok for modified UE precautions using Keep Your Move in the Tube technique Lines/Drains/Airways: x2 chest tubes, sanchez, tele, on RA initially, R I.I triple lumen Overall Cognitive Status: WFL Overall Orientation Status: Oriented to Place and Oriented to Person Family/Caregiver Present: spouse Objective Exercises Exercises Upper Extremity: P&C exercises 1-9 x 6-8 reps each. limited shoulder flexion/ROM secomdary to previous injury Comments: I.S. 500-750 mL Plan Continue acute PT per plan of care. Safety/Education Safety Safety Devices in place: All fall risk precautions in place, call light within reach, left in bed, and no alarms engaged upon entry Restraints: No Education Education Given To: patient and spouse Education Provided: PT Role, PT Goals, Plan of Care, Precautions, and Discharge Recommendations Education Method: Verbal Barriers to Learning: None Education Outcome: Verbalized Understanding and Continued Education Needed Outcome Measures AM-PAC AM-PAC Inpatient Mobility Raw Score (No Stairs) : 14 JH-HLM JH-HLM Scale: Bed activity Goals Patient Stated Goal: To reduce pain and nausea and be Indep again Encounter Problems Encounter Problems (Active) Cardiac Patient will perform bed mobility with independence in order to improve independence and prepare for out of bed mobility. (Not Addressed) Start: 01/30/25 Expected End: 02/13/25 Patient will complete sit to stand transfer with independence to none in order to improve safety and prepare for out of bed mobility. (Not Addressed) Start: 01/30/25 Expected End: 02/13/25 Patient will ambulate 300 feet or ambulate 5 minutes with modified independence with RPE of 14 or lower. (Not Addressed) Start: 01/30/25 Expected End: 02/13/25 Patient will ascend and descend 4 # stairs with modified independence rail for balance only. (Not Addressed) Start: 01/30/25 Expected End: 02/13/25 Patient will be independent with P&C exercises. (Progressing) Start: 01/30/25 Expected End: 02/13/25 Patient will be independent with managing secretions and home walking program. (Progressing) Start: 01/30/25 Expected End: 02/13/25 Therapy Time Individual Co-treatment Time In 1439 Time Out 1452 Minutes 13 Timed Code Treatment Minutes: (TP) Miguelina Ortiz PTA [facility] Progress Note Department of Internal Medicine Division of Endocrinology, Diabetes, & Metabolism Endocrinology Note Patient Name: Ryan Macedo : 1955 AGE: 69 y.o. Room/Bed: T1-121/T1-121 A Admission Date: 01/29/2025 Visit Date: 01/31/2025 Reason for Endocrine Consult: post heart Provider/Team Requesting Consult: cts PCP: MIRIAM GOMEZ Outpt Travel Assistant: No ASSESSMENT: Stress hyperglycemia DM2 with hyperglycemia without exterminator termite insulin CABGx3 Htn/hld/cad PLAN: -Give lantus 12 x1 now- stop insulin gtt one hour -Start lantus 12 daily am- tomorrow -Humalog low SSI -Humalog meals-hold if npo -Do not plan on sending home on insulin, but will remain on insulin while inpatient ICU goal <180 GMF goal <150 POCT BG ACHS Hypoglycemia management per protocol Carb controlled diet ANTICIPATED ENDOCRINE HOME GOING RECOMMENDATIONS: Optimized for Discharge from Endocrine standpoint: No Home Going Endocrine Rx Recommendations-- TBD-Home regimen glimepiride, metformin, Ozempic Consider SGLT2 possibly Has home glucometer already Outpt Follow Up-- PCP SUBJECTIVE/HPI: CHIEF COMPLAINT: No chief complaint on file. S/p CABGx3 Noted hx of DM2 upon chart review, sees PCP for this. Not on insulin only oral medications No history of thyroid disease Interval events 01-31: BGL stable on insulin gtt 1.5/hr-plan to tx off Up awake VSS RA Walking in halls CT in place Ate small bfast- burundian toast No nv noted Spoke with team Family present BGL below Stable on insulin gtt 3/hr No A1c in chart or Care Everywhere order placed to check lab level add on No pressors are currently on Patient is awake alert extubated VSS RA Family in room Confirmed his home diabetes medication regimen, sees PCP for this He is already on a GLP-1, states he has never been on Jardiance or Farxiga before Has a home glucometer, states that his ranges between 80-100 recently, no noted lows Did have some nausea vomiting this morning, had a few bites of breakfast X 2 chest tubes are in place Spoke with team Type of DM: 2 Onset of DM: Over 25 years ago Home DM Medication Regimen: glimipiride 2 mg daily, metformin 500 mg tid (2 tabs a.m., 1 tab lunch, 2 tabs p.m.), ozempic 1 mg weekly on Wednesdays DM control (last A1c/glucose data): Lab Results Component Value Date HGBA1C 6.8 (H) 01/30/2025 Glucose Date/Time Value Ref Range Status 01/31/2025 09:12 AM 230 (H) 70 - 100 mg/dL Final 01/31/2025 08:09 AM 191 (H) 70 - 100 mg/dL Final 01/31/2025 06:07 AM 156 (H) 70 - 100 mg/dL Final 01/31/2025 04:22 AM 143 (H) 70 - 100 mg/dL Final 01/31/2025 01:55 AM 140 (H) 70 - 100 mg/dL Final 01/31/2025 12:14 AM 110 (H) 70 - 100 mg/dL Final Review of Systems ROS negative except for those mentioned in HPI. OBJECTIVE: Vitals: 01/31/25 0620 01/31/25 0700 01/31/25 0800 01/31/25 0810 BP: (!) 130/110 137/72 140/69 140/69 BP Location: Right arm Patient Position: Lying Pulse: 109 85 78 81 Resp: 16 18 18 Temp: 36.4 ?C (97.6 ?F) TempSrc: Temporal SpO2: 96% 93% 95% Weight: Height: Physical Exam Vitals and nursing note reviewed. Constitutional: General: He is not in acute distress. Appearance: He is ill-appearing. He is not toxic-appearing or diaphoretic. HENT: Mouth/Throat: Mouth: Mucous membranes are moist. Cardiovascular: Rate and Rhythm: Normal rate. Pulmonary: Effort: Pulmonary effort is normal. Abdominal: Tenderness: There is no guarding. Musculoskeletal: Cervical back: Normal range of motion. Skin: General: Skin is warm and dry. Coloration: Skin is pale. Comments: Intact incision Neurological: Mental Status: He is oriented to person, place, and time. Mental status is at baseline. Psychiatric: Mood and Affect: Mood normal. Behavior: Behavior normal. 24 hour intake/output: Intake/Output Summary (Last 24 hours) at 01/31/2025 0912 Last data filed at 01/31/2025 0630 Gross per 24 hour Intake 1041 ml Output 1120 ml Net -79 ml Diet: Adult diet Regular; No Added Salt (3-4 gm); 5 carb choices (75 gm/meal) Medications (as per EMR): HomeMeds: Current Outpatient Medications Medication Instructions aspirin 81 mg, Daily cholecalciferol (VITAMIN D-3) 50 mcg, Daily coenzyme Q-10 100 mg, Daily dilTIAZem CD (CARDIZEM CD) 360 mg, Daily ezetimibe (ZETIA) 10 mg, Daily famotidine (PEPCID) 40 mg, Daily PRN glimepiride (AMARYL) 2 mg, Daily hydroCHLOROthiazide (HYDRODIURIL) 25 mg, Daily losartan (COZAAR) 100 mg, Daily metFORMIN (GLUCOPHAGE) 500 mg, 3 times daily with meals Multiple Vitamin (multivitamin) tablet 1 tablet, Daily mupirocin (Bactroban) 2 % ointment Using a q-tip, place small fingertip size amount into each nostril the night before surgery. Do not occlude nasal passage. Ozempic (1 MG/DOSE) 1 mg, Weekly Scheduled Meds:Scheduled Meds[1] Continuous Infusions:Continuous Meds[2] PRN Meds:PRN Meds[3] (more content not included)... Normal [facility] Vital signson 01-31-2025 Heart rate 89 /min bpm [facility] Heart rate 119 /min bpm [facility] XR CHEST 1 VIEWon 01-31-2025 XR CHEST 1 VIEW Patient Name: [facility] 1955 [id number] Exam Date/Time: 01/31/2025 05:20 Procedure: XR CHEST 1 VIEW Ordering Provider: SHEIKH ANDREW Reason For Exam: Shortness of breath Examination: Portable chest Indication: Shortness of breath Comparison: Previous day Findings: Mild cardiomegaly with median sternotomy. Mild interstitial prominence in both lungs and suspected mild right basilar infiltrate. Chest tube overlies the right lower hemithorax. Suspect small right apical pneumothorax. Suspect left basilar atelectasis. Left basilar chest tube present. Right IJ catheter is similar. IMPRESSION: Impression: Probable small right apical pneumothorax. Bilateral chest tubes with median sternotomy. Report Dictated on Electronically Signed By: Viviana Cohen MD Electronically Signed Date/Time: 01/31/2025 6:58 AM EDT Normal [facility] XR Chest Single viewon 01-31 [facility] Radiology Study observation (narrative) [facility] XR Chest Single viewOrdered By: Viviana Cohen on 01-31-2025 [facility] Work Phone: BASIC METABOLIC PANELon 01-07 Anion gap [Moles/Vol] 5 mmol/L Normal 3-13 [facility] Comment on above: Performed By: #### L AB15, [id number] ####Monument Mason: HIPOLITO WOODS ([id number])[facility] ([address] Calcium [Mass/Vol] 8.4 mg/dL Low 8.8-10.0 [facility] Comment on above: Performed By: #### L AB15, [id number] ####Monument Mason: HIPOLITO WOODS ([id number])[facility] ([facility] [place] [address] [place] Chloride [Moles/Vol] 112 mmol/L High 98-[address] [facility] Comment on above: Performed By: #### L AB15, [id number] ####[place] Mason: HIPOLITO WOODS ([id number])[facility] [place] [address] [place] CO2 [Moles/Vol] 24 mmol/L Normal 23-31 [facility] Comment on above: Performed By: #### L AB15, [id number] ####[place] Mason: HIPOLITO WOODS ([id number])[facility] ([facility])[address] [place] [address] Creatinine [Mass/Vol] 1.03 mg/dL Normal 0.72-1.25 [facility] Comment on above: Performed By: #### L AB15, [id number] ####[place] Mason: HIPOLITO WOODS ([id number])[facility] ([facility])[address] [place] [address] [place] GLOMERULAR FILTRATION RATE ML/MIN/1.73 SQ M.PREDICTED 78.1 mL/min/1.73m*2 Normal >60.0 [facility] Comment on above: Result Comment: Calc ulation based on the Chronic Kidney Disease Epidemiology Collaboration (CKD-EPI) equation refit without adjustment for race Performed By: #### L AB15, [id number] ####[place] Mason: HIPOLITO WOODS ([id number])[facility] ([facility])[address] [place] [address] [place] Glucose [Mass/Vol] 151 mg/dL High 82-115 [facility] Comment on above: Performed By: #### L AB15, [id number] ####[place] Mason: HIPOLITO WOODS ([id number])[facility])[address] [place] [address] Potassium [Moles/Vol] 3.9 mmol/L Normal 3.5-5.1 [facility] Comment on above: Result Comment: [facility] potassium values may be up to 0.5 mmol/L lower than serum values. Performed By: #### L AB15, [id number] ####Monument Mason: HIPOLITO WOODS ([id number])[facility])[address] [place] [address] Sodium [Moles/Vol] 141 mmol/L Normal 136-145 [facility] Comment on above: Performed By: #### L AB15, [id number] ####[place] Mason: HIPOLITO WOODS ([id number])[facility] ([facility])[address] [place] [address] Urea nitrogen [Mass/Vol] 19 mg/dL Normal 9-23 [facility] Comment on above: Performed By: #### L AB15, [id number] ####[place] Mason: HIPOLITO WOODS ([id number])[facility] ([facility])[address] [place] [address] Basic metabolic 1998 panelon 01-30-2025 Anion gap [Moles/Vol] 5 mmol/L 3 - 13 mmol/L [facility] Calcium [Mass/Vol] 8.4 mg/dL Low 8.8 - 10. 0 mg/dL [facility] Chloride [Moles/Vol] 112 mmol/L High 98 - 10 7 mmol/L [facility] CO2 [Moles/Vol] 24 mmol/L 23 - 31 mmol/L [facility] Creatinine [Mass/Vol] 1.03 mg/dL 0.72 - 1.25 mg/dL [facility] GFR/1.73 sq M.predicted (S/P/Bld) [Vol rate/Area] 78.1 mL/min - PINF [facility] Glucose [Mass/Vol] 151 mg/dL High 82 - 115 mg/dL [facility] Interpretation and review of laboratory results Abnormal [facility] Potassium [Moles/Vol] 3.9 mmol/L 3.5 - 5.1 mmol/L [facility] Sodium [Moles/Vol] 141 mmol/L 136 - 145 mmol/L [facility] Urea nitrogen [Mass/Vol] 19 mg/dL 9 - 23 mg/d L [facility] CALCIUM, IONIZEDon CALCIUM IONIZED 4.40 mg/dL Normal 4.30-5.[address] [facility] Comment on above: Order Comment: Obtai n PRN and check ionized Ca level if serum Ca level less than 8.0 Performed By: #### L AB54 ####Mon[place] Mason: HIPOLITO WOODS ([id number])[facility])[address] [place] [address] PH, IONIZED CALCIUM 7.40 Normal 7.31-7.46 [facility] Comment on above: Order Comment: Obtai n PRN and check ionized Ca level if serum Ca level less than 8.0 Performed By: #### L AB54 ####Monument Mason: HIPOLITO WOODS ([id number])[facility])[address] [place] [address] CBC (HEMOGRAM)on 01-30-2025 Erythrocyte distribution width (RBC) [Ratio] 12.5 % Normal 11.5-15.0 [facility] Comment on above: Performed By: #### L AB103, LAB15 #### [place] Mason: HIPOLITO WOODS ([id number]) [facility] ([facility]) [address] [place] [address] Hematocrit (Bld) [Volume fraction] 26.9 % Low 40.0-52.0 [facility] Comment on above: Performed By: #### L AB103, LAB15 #### [place] Mason: HIPOLITO WOODS ([id number]) [address] Hemoglobin (Bld) [Mass/Vol] 8.9 g/dL Low 13.0-18.0 [facility] Comment on above: Performed By: #### L AB103, LAB15 #### [place] Mason: HIPOLITO WOODS ([id number]) [facility]) [address] [place] [address] MCH (RBC) [Entitic mass] 30.7 pg Normal 26.0-34.0 [facility] Comment on above: Performed By: #### L AB103, LAB15 #### [place] Mason: HIPOLITO WOODS ([id number]) [facility]) [address] [place] [address] MCHC 33.1 % Normal 30.5-36.0 [facility] Comment on above: Performed By: #### L AB103, LAB15 #### [place]ument Mason: HIPOLITO WOODS ([id number]) [facility] ([facility]) [address] [place] [address] MCV (RBC) [Entitic vol] 92.8 fL Normal 77.0-99.0 [facility] Comment on above: Performed By: #### L AB103, LAB15 #### [place] Mason: HIPOLITO WOODS ([id number]) [facility]) [address] [place] [address] Platelet mean volume (Bld) [Entitic vol] 10.8 fL Normal 9.0-12.7 [facility] Comment on above: Performed By: #### L AB103, LAB15 #### [place] Mason: HIPOLITO WODOS ([id number]) [facility] ([facility]) [address] [place] [address] Platelets (Bld) [#/Vol] 151 10*3/uL Normal 140-440 [facility] Comment on above: Performed By: #### L AB103, LAB15 #### [place] Mason: HIPOLITO WOODS ([id number]) [facility] ([facility]) [address] [place] [address] RBC (Bld) [#/Vol] 2.90 10*6/uL Low 4.40-5.90 [facility] Comment on above: Performed By: #### L AB103, LAB15 #### [place] Mason: HIPOLITO WOODS ([id number]) [facility] ([facility]) [address] [place] [address] WBC (Bld) [#/Vol] 8.6 10*3/uL Normal 3.6-10.7 [facility] Comment on above: Performed By: #### L AB103, LAB15 #### [place] Mason: HIPOLITO WOODS ([id number]) [facility]) [address] [place] [address] CBC panel Auto (Bld)on 01-30 Erythrocyte distribution width (RBC) [Ratio] 12.5 % 11.5 - 15.0 % [facility] Hematocrit (Bld) [Volume fraction] 26.9 % Low 40.0 - 52.0 % [facility] Hemoglobin (Bld) [Mass/Vol] 8.9 g/dL Low 13.0 - 18.0 g/dL [facility] Interpretation and review of laboratory results Abnormal [facility] MCH (RBC) [Entitic mass] 30.7 pg 26. 0 - 34.0 pg [facility] MCHC (RBC) [Mass/Vol] 33.1 % 30.5 - 36.0 % [facility] MCV (RBC) [Entitic vol] 92.8 fL 77.0 - 99.0 fL [facility] Platelet mean volume (Bld) [Entitic vol] 10.8 fL 9.0 - 12.7 fL [facility] Platelets (Bld) [#/Vol] 151 10*3/uL 140 - 440 10*3/uL [facility] RBC (Bld) [#/Vol] 2.9 10*6/uL Low 4.40 - 5.9 0 10*6/uL [facility] WBC (Bld) [#/Vol] 8.6 10*3/uL 3.6 - 10.7 10*3/uL [facility] Calcium.ionized [Moles/Vol]o n 01-30-2025 Calcium.ionized (Bld) [Moles/Vol] 4.4 mg/dL 4.30 - 5.20 mg/dL [facility] Interpretation and review of laboratory results Normal [facility] PH, IONIZED CALCIUM 7.4 7.31 - 7.46 [facility] Consulton 01-30-2025 Consult - Attestation signed by Olaf Schaeffer at 01/30/2025 1:28 PM I discussed management with the Nurse Practitioner (SAS CLINICAL PROGRAMMER). I reviewed the SAS CLINICAL PROGRAMMER's note and agree with the documented findings and plan of care. Thank you so much for the consult. Should you have any questions please don?t hesitate to contact us. Department of Internal Medicine Division of Endocrinology, Diabetes, & Metabolism Endocrinology Note Patient Name: Ryan Macedo : 1955 AGE: 69 y.o. Room/Bed: T1-121/T1-121 A Admission Date: 01/29/2025 Visit Date: 01/30/2025 Reason for Endocrine Consult: post heart Provider/Team Requesting Consult: cts PCP: MIRIAM GOMEZ Outpt Travel Assistant: No ASSESSMENT: Stress hyperglycemia DM2 with hyperglycemia without longterm insulin CABGx3 Htn/hld/cad PLAN: For now continue on insulin drip Will watch trends closely to see if we can transition off later today Check A1c level ICU goal <180 GMF goal <150 POCT BG ACHS Hypoglycemia management per protocol Carb controlled diet ANTICIPATED ENDOCRINE HOME GOING RECOMMENDATIONS: Optimized for Discharge from Endocrine standpoint: No Home Going Endocrine Rx Recommendations-- TBD-Home regimen glimepiride, metformin, Ozempic Consider SGLT2 possibly Has home glucometer Outpt Follow Up-- PCP SUBJECTIVE/HPI: CHIEF COMPLAINT: No chief complaint on file. S/p CABGx3 Noted hx of DM2 upon chart review, sees PCP for this. Not on insulin only oral medications No history of thyroid disease BGL below Stable on insulin gtt 3/hr No A1c in chart or Care Everywhere order placed to check lab level add on No pressors are currently on Patient is awake alert extubated VSS RA Family in room Confirmed his home diabetes medication regimen, sees PCP for this He is already on a GLP-1, states he has never been on Jardiance or Farxiga before Has a home glucometer, states that his ranges between 80-100 recently, no noted lows Did have some nausea vomiting this morning, had a few bites of breakfast X 2 chest tubes are in place Spoke with team Type of DM: 2 Onset of DM: Over 25 years ago Home DM Medication Regimen: glimipiride 2 mg daily, metformin 500 mg tid (2 tabs a.m., 1 tab lunch, 2 tabs p.m.), ozempic 1 mg weekly on Wednesdays DM control (last A1c/glucose data): No results found for: HGBA1C Glucose Date/Time Value Ref Range Status 01/30/2025 09:15 AM 126 (H) 70 - 100 mg/dL Final 01/30/2025 08:10 AM 129 (H) 70 - 100 mg/dL Final 01/30/2025 07:01 AM 163 (H) 70 - 100 mg/dL Final 01/30/2025 06:23 AM 171 (H) 70 - 100 mg/dL Final 01/30/2025 05:27 AM 130 (H) 70 - 100 mg/dL Final 01/30/2025 04:00 AM 145 (H) 70 - 100 mg/dL Final Review of Systems ROS negative except for those mentioned in HPI. OBJECTIVE: Vitals: 01/30/25 0600 01/30/25 0700 01/30/25 0800 01/30/25 0810 BP: 138/75 144/73 127/66 BP Location: Right arm Patient Position: Sitting Pulse: 82 77 74 Resp: 18 15 12 Temp: (!) 35.9 ?C (96.7 ?F) TempSrc: Temporal SpO2: 97% 93% 98% Weight: Height: Physical Exam Vitals and nursing note reviewed. Constitutional: General: He is not in acute distress. Appearance: He is ill-appearing. He is not toxic-appearing or diaphoretic. HENT: Mouth/Throat: Mouth: Mucous membranes are moist. Cardiovascular: Rate and Rhythm: Normal rate. Pulmonary: Effort: Pulmonary effort is normal. Abdominal: Tenderness: There is no guarding. Musculoskeletal: Cervical back: Normal range of motion. Skin: General: Skin is warm and dry. Coloration: Skin is pale. Comments: Intact incision Neurological: Mental Status: He is oriented to person, place, and time. Mental status is at baseline. Psychiatric: Mood and Affect: Mood normal. Behavior: Behavior normal. 24 hour intake/output: Intake/Output Summary (Last 24 hours) at 01/30/2025924 Last data filed at 01/30/2025 0900 Gross per 24 hour Intake 4395 ml Output 3693 ml Net 702 ml Diet: Adult diet Regular; No Added Salt (3-4 gm); 5 carb choices (75 gm/meal) Medications (as per EMR): HomeMeds: Current Outpatient Medications Medication Instructions aspirin 81 mg, Daily cholecalciferol (VITAMIN D-3) 50 mcg, Daily coenzyme Q-10 100 mg, Daily dilTIAZem CD (CARDIZEM CD) 360 mg, Daily ezetimibe (ZETIA) 10 mg, Daily famotidine (PEPCID) 40 mg, Daily PRN glimepiride (AMARYL) 2 mg, Daily hydroCHLOROthiazide (HYDRODIURIL) 25 mg, Daily losartan (COZAAR) 100 mg, Daily metFORMIN (GLUCOPHAGE) 500 mg, 3 times daily with meals Multiple Vitamin (multivitamin) tablet 1 tablet, Daily mupirocin (Bactroban) 2 % ointment Using a q-tip, place small fingertip size amount into each nostril the night before surgery. Do not occlude nasal passage. Ozempic ( (more content not included)... Normal [facility] ECG 12-LEADon 01-30-2025 ECG 12-LEAD IMPRESSION: Sinus rhythm Borderline ST elevation, anterior leads Compared to ECG 01/29/2025 16:30:[address] elevation noted Electronically Signed On 01-30-2025 11:46:29 EDT by Ryan Barksdale Normal [facility] HEMOGLOBIN A1Con 01-30-2025 Glucose [Mass/Vol] 148 mg/dL Normal [facility] Comment on above: Result Comment: TOM Peterson COMMENTS: HbA1c values of 5.7-6.4 percent indicate an increased risk for developing diabetes mellitus. HbA1c values greater than or equal to 6.5 percent are diagnostic of diabetes mellitus. For diagnosis of diabetes in individuals without unequivocal hyperglycemia, results should be confirmed by repeat testing. Performed By: #### L AB90 ####[place] Mason: HIPOLITO WOODS ([id number])[facility] ([address] HEMOGLOBIN A1C 6.8 %HbA1C High <5.7 [facility] Comment on above: Result Comment: Norm al less than 5.7% Prediabetes 5.7% to 6.4% Diabetes 6.5% or higher --HgbA1C levels may not be accurate in patients who have renal disease, received recent blood transfusions, are anemic, or who have dyshemoglobinemia. Performed By: #### L AB90 ####[place] Mason: HIPOLITO WOODS ([id number])[facility] ([id number] Laboratory - Chemistry and C hemistry - challengeon 01-30-2025 Glucose [Mass/Vol] 126 mg/dL High 70 - 100 mg/dL [facility] Glucose [Mass/Vol] 134 mg/dL High 70 - 100 mg/dL [facility] Glucose [Mass/Vol] 160 mg/dL High 70 - 100 mg/dL [facility] Glucose [Mass/Vol] 152 mg/dL High 70 - 100 mg/dL [facility] Glucose [Mass/Vol] 177 mg/dL High 70 - 100 mg/dL [facility] Glucose [Mass/Vol] 151 mg/dL High 70 - 100 mg/dL [facility] Glucose [Mass/Vol] 131 mg/dL High 70 - 100 mg/dL [facility] Glucose [Mass/Vol] 129 mg/dL High 70 - 100 mg/dL [facility] Average glucose Estimated from glycated hemoglobin (Bld) [Mass/Vol] 148 mg/dL [facility] Glucose [Mass/Vol] 117 mg/dL High 70 - 100 mg/dL [facility] Glucose [Mass/Vol] 115 mg/dL High 70 - 100 mg/dL [facility] Glucose [Mass/Vol] 101 mg/dL High 70 - 100 mg/dL [facility] Glucose [Mass/Vol] 128 mg/dL High 70 - 100 mg/dL [facility] Glucose [Mass/Vol] 120 mg/dL High 70 - 100 mg/dL [facility] Glucose [Mass/Vol] 114 mg/dL High 70 - 100 mg/dL [facility] Glucose [Mass/Vol] 126 mg/dL High 70 - 100 mg/dL [facility] Glucose [Mass/Vol] 129 mg/dL High 70 - 100 mg/dL [facility] Glucose [Mass/Vol] 163 mg/dL High 70 - 100 mg/dL [facility] Glucose [Mass/Vol] 171 mg/dL High 70 - 100 mg/dL [facility] Glucose [Mass/Vol] 130 mg/dL High 70 - 100 mg/dL [facility] Glucose [Mass/Vol] 145 mg/dL High 70 - 100 mg/dL [facility] Glucose [Mass/Vol] 138 mg/dL High 70 - 100 mg/dL [facility] Glucose [Mass/Vol] 133 mg/dL High 70 - 100 mg/dL [facility] Glucose [Mass/Vol] 133 mg/dL High 70 - 100 mg/dL [facility] Magnesium [Mass/Vol] 2 mg/dL 1.6 - 2 .6 mg/dL [facility] Glucose [Mass/Vol] 174 mg/dL High 70 - 100 mg/dL [facility] Laboratory - Coagulationon 0 01-30-2025 aPTT Coag (PPP) [Time] 32.5 s High 20.0 - 30.5 s [facility] INR Coag (PPP) [Relative time] 1.2 {INR} High 0.9 - 1.1 [facility] PT Coag (Bld) [Time] 12.6 s High 9.0 - 12.0 s [facility] Laboratory - Hematology and Cell countson 01-30-2025 HbA1c (Bld) [Mass fraction] 6.8 % High NINF [facility] MAGNESIUMon 01-30-2025 Magnesium [Mass/Vol] 2.0 mg/dL Normal 1.6-2.6 [facility] Comment on above: Result Comment: TOM Peterson COMMENTS: Higher values can be expected in females during menses. Performed By: #### L AB15, [id number] ####[place] Mason: HIPOLITO WOODS ([id number])[facility] ([id number] Magnesium [Mass/Vol]on 01-30 Interpretation and review of laboratory results Normal [facility] No Panel Informationon 01-30 Interpretation and review of laboratory results Abnormal [facility] Interpretation and review of laboratory results Abnormal [facility] Interpretation and review of laboratory results Abnormal [facility] Interpretation and review of laboratory results Abnormal [facility] Interpretation and review of laboratory results Abnormal [facility] Interpretation and review of laboratory results Abnormal [facility] Interpretation and review of laboratory results Abnormal [facility] Interpretation and review of laboratory results Abnormal [facility] Interpretation and review of laboratory results Abnormal [facility] Interpretation and review of laboratory results Abnormal [facility] Interpretation and review of laboratory results Abnormal [facility] Interpretation and review of laboratory results Abnormal [facility] Interpretation and review of laboratory results Abnormal [facility] Interpretation and review of laboratory results Abnormal [facility] Interpretation and review of laboratory results Abnormal [facility] Interpretation and review of laboratory results Abnormal [facility] Interpretation and review of laboratory results Abnormal [facility] Interpretation and review of laboratory results Abnormal [facility] Interpretation and review of laboratory results Abnormal [facility] Interpretation and review of laboratory results Abnormal [facility] Interpretation and review of laboratory results Abnormal [facility] Interpretation and review of laboratory results Abnormal [facility] Interpretation and review of laboratory results Abnormal [facility] Interpretation and review of laboratory results Abnormal [facility] Interpretation and review of laboratory results Abnormal [facility] Interpretation and review of laboratory results Abnormal [facility] No Panel InformationOrdered By: Ryan Barksdale on 01-30-2025 P [place] 70 degrees [facility] Work Phone: NV Interval 181 ms [facility] Work Phone: QRS [place] 6 degrees [facility] Work Phone: QRSD Interval 101 ms [facility] Work Phone: QT Interval 397 ms [facility] Work Phone: QTC Interval 448 ms [facility] Work Phone: [phone] Wave [place] 39 degrees [facility] Work Phone: [phone] [facility] Work Phone: [phone] PROTIME AND APTTon aPTT Coag (Bld) [Time] 32.5 s High 20.0-30.5 [facility] Comment on above: Performed By: #### Curly [id number], LAB15 #### [place] Mason: HIPOLITO WOODS ([id number]) [facility] ([facility]) [address] [place] [address] INR Coag (PPP) [Relative time] 1.2 {INR} High 0.9-1.1 [facility] Comment on above: Result Comment: Mino mmended Anticoagulant Therapy: SEE BELOW ----- INR of 2.0 - 3.0 : - Prophylaxis of Venous Thrombosis (high-risk surgery) - Treatment of Venous Thrombosis - Treatment of Pulmonary Embolism (Includes tissue heart valves, Acute Myocardial Infarction to prevent systemic embolism, Valvular Heart Disease, and Atrial Fibrillation) ----- INR of 2.5 - 3.5 : - Mechanical Prosthetic Valves (high risk) - If oral anticoagulant therapy is used to prevent Myocardial Infarction Performed By: #### Curly RAMIREZ, LAB15 #### [place] Mason: HIPOLITO WOODS ([id number]) [facility]) [address] [place] [address] PT Coag (PPP) [Time] 12.6 s High 9.0-12.[address] [facility] Comment on above: Performed By: #### Curly [id number], LAB15 #### [place] Mason: HIPOLITO WOODS ([id number]) [facility]) [address] [place] [address] Progress Noteon 01-30-2025 Progress Note OCCUPATIONAL THERAPY [facility] Name/MRN: Ryan Macedo ([id number]) Date: 01/30/2025 Evaluation is being deferred at present because pt states he just worked with PT and is politely declining OT eval due to fatigue . Pt agreeable to OT eval at a later date. Will continue to assess. Fam Dorsey, OT Normal [facility] Progress Note - Attestation signed by Sunny Youssef DO at 01/30/2025 10:12 AM I have personally performed a [id number] diagnostic evaluation on this patient on date of service 01/30/25. History, labs, imaging studies, and electronic medical record have been reviewed by me. This note documented by the []Critical Care Fellow []store warehouse associate [x]KIM reflects my history, exam, and medical decision making. I have reviewed and agree with the care plan. Changes were made in the orders as necessary. ROS documentation was reviewed and negative unless otherwise stated in HPI. Additional pertinent interval history, ROS, and physical exam findings: AdmitDate = 01/29/2025 LOS: 1 No chief complaint on file. ON Event(s): No Glucose at goal on insulin gtt. 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 T2DM with stress hyperglyemia HTN Gerd Plan: Agree with plan in KIM note. Disposition: Unchanged. Critical Care Time: 25min Or Noncritical Care Time: n/a Total time caring for this patient including direct patient contact, review of data including imaging and labs, discussions with other team members and physicians, excluding procedures. Electronically signed by Sunny Youssef DO Cardiothoracic Surgery/CCM Progress Note PATIENT NAME: Ryan Macedo DATE: 01/30/25 HPI: 69 y.o.male with pmHx of GERD, HTN, HLD, OA, Gout and DM was seen in the OP setting by CTS for potential CABG. Initially patient underwent a stress test which was suggestive of ischemia at a moderate workload. He then underwent a cardiac cath which noted: MVCAD with severe disease involving the circumflex and RCA, moderately severe disease involving the LAD and mild LV systolic dysfunction. He consented and was taken to the operating room on 01/29/25 for CABG x [address] Herrera. Surgery/Procedure: 01/29/25- CABG x3 (FAIR-LAD, SVG-OM1, SVG-RPDA), LLE EVH with Dr. Herrera Interval History: 01/30/25, POD# 1: VSS, no pressors overnight. Afebrile, NSR on tele, on 1L NC. Resting in chair, having nausea and vomiting episode x2 overnight. He reports issues with N/V after previous surgeries. Review of Systems Constitutional: Positive for activity change, appetite change and fatigue. Negative for diaphoresis and fever. Respiratory: Negative for cough, shortness of breath and wheezing. Cardiovascular: Negative for chest pain, palpitations and leg swelling. Gastrointestinal: Positive for nausea and vomiting. Negative for abdominal distention and abdominal pain. Skin: Negative for color change, pallor and rash. Objective: CT output cc/24hrs: 580 mL UO cc/24hrs: 2,235 mL Vitals: BP: 138/75, MAP (mmHg): 93, BP Method: Arterial line Heart Rate: 82 Resp: 18 Temp: 36.6 ?C (97.8 ?F), Temp Source: Axillary BMI (Calculated): 25.02 CXR: BMP: Recent Labs 01/29/25 1521 01/29/25 1748 01/30/25 0021 NA 143 143 141 K 3.2* 3.1* 3.9 CL 112* 109* 112* CO2 23 23 24 BUN 19 20 19 CREATININE 1.05 1.12 1.03 CALCIUM 9.0 8.7* 8.4* MG 2.7* 2.1 2.0 PHOS 2.4 -- -- CBC: Recent Labs 01/29/25 1521 01/29/25 1748 01/30/25 0021 WBC 7.6 9.8 8.6 HGB 8.3 8.0* 9.6* 8.9* HCT 23.9* 29.2* 26.9* PLT 169 164 151 MCV 93.4 95.1 92.8 RDW 12.5 12.5 12.5 INR: Recent Labs 01/29/25 1521 01/29/25 1748 01/30/25 0021 INR 1.6* 1.3* 1.2* Physical Exam Cardiovascular: Rate and Rhythm: Normal rate and regular rhythm. Heart sounds: No murmur heard. Friction rub present. Pulmonary: Effort: Pulmonary effort is normal. Breath sounds: No decreased breath sounds, wheezing or rhonchi. Abdominal: General: Bowel sounds are decreased. Palpations: Abdomen is soft. Tenderness: There is no abdominal tenderness. Genitourinary: Comments: Sanchze catheter to straight drain Musculoskeletal: Right lower leg: No edema. Left lower leg: No edema. Skin: General: Skin is warm and dry. Capillary Refill: Capillary refill takes less than 2 seconds. Findings: Bruising and ecchymosis present. Comments: Surgical Incisions: well approximate; clean dry with no drainage noted. Surrounding skin no redness, warmth, or signs of infection noted. Neurological: Mental Status: He is alert. Psychiatric: Behavior: Behavior is cooperative. Assessment: MVCAD s/p CABGx3 GERD HTN HLD OA DM Post operative Pulm Management: Normal Post-operative Course Post-operative Atrial Fibrillation: []Yes [x] No Acute blood loss anemia Plan: Patient status: ICU Medications: ASA/Zetia BB- Metoprolol 12.5mg BID Bowel regimen: Miralax, senna GI prophy: PO protonix DVT prophy: (more content not included)... Normal [facility] US Heart Transesophagealon 0 01-30-2025 CV CPACS HEMO US Heart TransesophagealOrde red By: Manuel Espana on 01-30-2025 [employer] Work Phone: Vital signsOrdered By: Rachelle Barksdale on 01-30-2025 Heart rate 77 /min bpm [employer] Work Phone: XR CHEST 1 VIEWon 01-30-2025 XR CHEST 1 VIEW Patient Name: [facility] 1955 [id number] Exam Date/Time: 01/30/2025 05:12 Procedure: XR CHEST 1 VIEW Ordering Provider: SHEIKH ANDREW Reason For Exam: Shortness of breath CHEST - PORTABLE: CLINICAL INDICATION: Shortness of breath. TECHNIQUE: Portable AP COMPARISON: One day ago FINDINGS: Tubes, lines and devices: Right jugular venous catheter along with the mediastinal drain and chest tubes Heart/Mediastinum: Unchanged Lungs/Pleura: Atelectasis at the left lung base. No other consolidation or pneumothorax. Costophrenic angles are sharp. IMPRESSION: Tubes in adequate position. Left basilar atelectasis Report Dictated on Electronically Signed By: Edmundo Cordoba MD Electronically Signed Date/Time: 01/30/2025 6:18 AM EDT Normal [facility] XR Chest Single viewon 01-30 [facility] Radiology Study observation (narrative) [facility] XR Chest Single viewOrdered By: Edmundo Cordoba on 01-30-2025 [facility] Work Phone: ABO and Rh group Confirm Nom (Bld)on 01-29-2025 ABO group Nom (Bld) O [facility] D Ag Ql (RBC) Positive [facility] Airwayon 01-29-2025 HARMONY Naik CRNA 01/29/2025 1:10 PM Airway Date/Time: 01/29/2025 12:08 PM Reason: scheduled Airway not difficult General Information and Staff Patient location during procedure: Procedural Anesthesiologist: Elías Diaz DO Resident/CVT RN: HARMONY Naik CRNA Performed: SRNA Patient Condition Indications for airway management: anesthesia and airway protection Patient position: sniffing MILS maintained throughout Sedation level: Asleep Final Airway Details Preoxygenated: yes Final airway type: endotracheal airway Successful airway: ETT Cuffed: yes Successful intubation technique: direct laryngoscopy Adjuncts used in placement: intubating stylet Endotracheal tube insertion site: oral Blade: Barbra Blade size: #4 ETT size (mm): 8.0 Cormack-Lehane Classification: grade IIa - partial view of glottis Placement verified by: chest auscultation, capnometry and palpation of cuff Measured from: gums ETT to gums (cm): 22 Number of attempts at approach: 1 Number of other approaches attempted: 0 [facility] Arterial Lineon 01-29-2025 HARMONY Naik CRNA 01/29/2025 1:11 PM Arterial Line: Date/Time: 01/29/2025 12:05 PM An arterial line was placed in the Procedural for the following indication(s): continuous blood pressure monitoring and blood sampling needed. The procedure was performed using ultrasound guidance . A 20 gauge (size), 1 and 3/4 inch (length), Arrow (type) catheter was placed, into the Left radial artery, secured by Tegaderm and tape. Events: patient tolerated procedure well with no complications. Staffing Performed: [facility] Anesthesiologist: Elías Diaz DO Resident/CVT RN: HARMONY Naik CRNA [facility] BASIC METABOLIC PANELon 01-07 Anion gap [Moles/Vol] 8 mmol/L Normal 3-13 [facility] Comment on above: Performed By: #### L AB113, LAB15, [id number] ####Monument Mason: HIPOLITO WOODS ([id number])[facility])[address] [place] [address] Calcium [Mass/Vol] 9.0 mg/dL Normal 8.8-10.0 [facility] Comment on above: Performed By: #### L AB113, LAB15, [id number] ####[place] Mason: HIPOLITO WOODS ([id number])[facility] ([facility])[address] [place] [address] [place] Chloride [Moles/Vol] 112 mmol/L High 98-107 [facility] Comment on above: Performed By: #### L AB113, LAB15, [id number] ####[place] Mason: HIPOLITO WOODS ([id number])[facility] [place] [address] [place] CO2 [Moles/Vol] 23 mmol/L Normal 23-[address] [facility] Comment on above: Performed By: #### L AB113, LAB15, [id number] ####[place] Mason: HIPOLITO WOODS ([id number])[facility])[address] [place] [address] Creatinine [Mass/Vol] 1.05 mg/dL Normal 0.72-1.25 [facility] Comment on above: Performed By: #### L AB113, LAB15, [id number] ####[place] Mason: HIPOLITO WOOSD ([id number])[facility])[address] [place] [address] GLOMERULAR FILTRATION RATE ML/MIN/1.73 SQ M.PREDICTED 76.4 mL/min/1.73m*2 Normal >60.0 [facility] Comment on above: Result Comment: Calc ulation based on the Chronic Kidney Disease Epidemiology Collaboration (CKD-EPI) equation refit without adjustment for race Performed By: #### L AB113, LAB15, [id number] ####[place] Mason: HIPOLITO WOODS ([id number])[facility])[address] [place] [address] Glucose [Mass/Vol] 113 mg/dL Normal 82-115 [facility] Comment on above: Performed By: #### L AB113, LAB15, [id number] ####[place] Mason: HIPOLITO WOODS ([id number])[address] Potassium [Moles/Vol] 3.2 mmol/L Low 3.5-5.1 [facility] Comment on above: Result Comment: [facility] potassium values may be up to 0.5 mmol/L lower than serum values. Performed By: #### L AB113, LAB15, [id number] ####[place] Mason: HIPOLITO WOODS ([id number])[facility])[address] [place] [address] [place] Sodium [Moles/Vol] 143 mmol/L Normal 136-145 [facility] Comment on above: Performed By: #### L AB113, LAB15, [id number] ####[place] Mason: HIPOLITO WOODS ([id number])[facility] [place] [address] Urea nitrogen [Mass/Vol] 19 mg/dL Normal 9-23 [facility] Comment on above: Performed By: #### L AB113, LAB15, [id number] ####Mon[place] Mason: HIPOLITO WOODS ([id number])[facility] ([facility])[address] [place] [address] BLOOD GAS ARTERIALon 24-2 025 AMOUNT OF OXYGEN 100 Normal [facility] Comment on above: Performed By: #### L AB76 ####[place] Mason: HIPOLITO WOODS ([id number])[facility] ([facility])[address] [place] [address] Base excess Calc (Bld) [Moles/Vol] -1.1000 mmol/L Normal -3.0-3.0 [facility] Comment on above: Performed By: #### L AB76 ####[place] Mason: HIPOLITO WOODS ([id number])[facility] ([facility])[address] [place] [address] CO2 [Moles/Vol] 24.1 mmol/L Normal 23.0-27.0 [facility] Comment on above: Performed By: #### L AB76 ####[place] Mason: HIPOLITO WOODS ([id number])[facility] ([facility])[address] [place] [address] HCO3 (Bld) [Moles/Vol] 23.0 mmol/L Normal 21.0-25.0 [facility] Comment on above: Performed By: #### L AB76 ####Mon[place] Mason: HIPOLITO WOODS ([id number])[facility] ([facility])[address] [place] [address] Hemoglobin (Bld) [Mass/Vol] 8.3 g/dL Normal Screen only [facility] Comment on above: Performed By: #### L AB76 ####Monument Mason: HIPOLITO WOODS ([id number])[facility] ([facility])[address] [place] [address] OXYGEN SATURATION (%) IN ARTERIAL BLOOD 99.2 % Normal 95.0-100.0 [facility] Comment on above: Performed By: #### L AB76 ####Monument Mason: HIPOLITO WOODS ([id number])[facility])[address] [place] [address] PCO2 ARTERIAL 35.4 mm Hg Normal >35.0-<45.0 [facility] Comment on above: Performed By: #### L AB76 ####Monument Mason: HIPOLITO WOODS ([id number])[facility] ([facility])[address] [place] [address] PH ARTERIAL 7.430 Normal 7.350-7.450 [facility] Comment on above: Performed By: #### L AB76 ####Monument Mason: HIPOLITO WOODS ([id number])[facility] ([facility])[address] [place] [address] PO2 ARTERIAL 324.4 mm Hg High 80.0-100.0 [facility] Comment on above: Performed By: #### L AB76 ####Monument Mason: HIPOLITO WOODS ([id number])[facility])[address] [place] [address] SOURCE OF OXYGEN Ventilator Normal [facility] Comment on above: Performed By: #### L AB76 ####[place] Mason: HIPOLITO WOODS ([id number])[facility] ([facility])[address] [place] [address] BLOOD TYPE AND SCREEN GELon 01-29-2025 ABO GROUPING O Normal [facility] Comment on above: Performed By: #### L AB103, LAB15 #### [place] Mason: HIPOLITO WOODS ([id number]) [facility]) [address] [place] [address] RH TYPE IN BLOOD Positive Normal [facility] Comment on above: Performed By: #### L AB103, LAB15 #### [place] Mason: HIPOLITO WOODS ([id number]) [facility]) [address] [place] [address] Basic metabolic 1998 panelon 01-29-2025 Anion gap [Moles/Vol] 8 mmol/L 3 - 13 mmol/L [facility] Calcium [Mass/Vol] 9 mg/dL 8.8 - 10. 0 mg/dL [facility] Chloride [Moles/Vol] 112 mmol/L High 98 - 10 7 mmol/L [facility] CO2 [Moles/Vol] 23 mmol/L 23 - 31 mmol/L [facility] Creatinine [Mass/Vol] 1.05 mg/dL 0.72 - 1.25 mg/dL [facility] GFR/1.73 sq M.predicted (S/P/Bld) [Vol rate/Area] 76.4 mL/min - PINF [facility] Glucose [Mass/Vol] 113 mg/dL 82 - 115 mg/dL [facility] Interpretation and review of laboratory results Abnormal [facility] Potassium [Moles/Vol] 3.2 mmol/L Low 3.5 - 5.1 mmol/L [facility] Sodium [Moles/Vol] 143 mmol/L 136 - 145 mmol/L [facility] Urea nitrogen [Mass/Vol] 19 mg/dL 9 - 23 mg/d L [facility] Blood type and Crossmatch pa teja (Bld)on 01-29-2025 ABO group Nom (Bld) O [facility] Blood group antibody screen GEL Ql Negative [facility] D Ag Ql (RBC) Positive [facility] CALCIUM, IONIZEDon 5 CALCIUM IONIZED 4.50 mg/dL Normal 4.30-5.20 [facility] Comment on above: Performed By: #### L AB103, LAB15 #### [place] Mason: HIPOLITO WOODS ([id number]) [facility] [address] [place] [address] PH, IONIZED CALCIUM 7.30 Low 7.31-7.46 [facility] Comment on above: Performed By: #### L AB103, LAB15 #### Monument Mason: HIPOLITO WOODS ([id number]) [facility] [address] [place] [address] CALCIUM IONIZED 4.80 mg/dL Normal 4.30-5.20 [facility] Comment on above: Performed By: #### L AB54 ####Monument Mason: HIPOLITO WOODS ([id number])[facility])[address] [place] [address] PH, IONIZED CALCIUM 7.44 Normal 7.31-7.46 [facility] Comment on above: Performed By: #### L AB54 ####Monument Mason: HIPOLITO WOODS ([id number])[facility])[address] [place] [address] CBC (HEMOGRAM)on 01-29-2025 Erythrocyte distribution width (RBC) [Ratio] 12.5 % Normal 11.5-15.0 [facility] Comment on above: Performed By: #### L AB294 #### Monument Mason: HIPOLITO WOODS ([id number]) [facility]) [address] [place] [address] Hematocrit (Bld) [Volume fraction] 29.2 % Low 40.0-52.0 [facility] Comment on above: Performed By: #### L AB294 #### Monument Mason: HIPOLITO WOODS ([id number]) [facility]) [address] [place] [address] Hemoglobin (Bld) [Mass/Vol] 9.6 g/dL Low 13.0-18.0 [facility] Comment on above: Performed By: #### L AB294 #### Monument Mason: HIPOLITO WOODS ([id number]) [facility]) [address] [place] [address] MCH (RBC) [Entitic mass] 31.3 pg Normal 26.0-34.0 [facility] Comment on above: Performed By: #### L AB294 #### Monument Mason: HIPOLITO WOODS ([id number]) [facility]) [address] [place] [address] MCHC 32.9 % Normal 30.5-36.0 [facility] Comment on above: Performed By: #### L AB294 #### Monument Mason: HIPOLITO WOODS ([id number]) [facility] [address] [place] [address] MCV (RBC) [Entitic vol] 95.1 fL Normal 77.0-99.0 [facility] Comment on above: Performed By: #### L AB294 #### Monument Mason: HIPOLITO WOODS ([id number]) [facility] ([facility]) [address] [place] [address] Platelet mean volume (Bld) [Entitic vol] 11.0 fL Normal 9.0-12.7 [facility] Comment on above: Performed By: #### L AB294 #### Monument Mason: HIPOLITO WOODS ([id number]) [facility] ([facility]) [address] [place] [address] Platelets (Bld) [#/Vol] 164 10*3/uL Normal 140-440 [facility] Comment on above: Performed By: #### L AB294 #### Monument Mason: HIPOLITO WOODS ([id number]) [facility] ([facility]) [address] [place] [address] RBC (Bld) [#/Vol] 3.07 10*6/uL Low 4.40-5.90 [facility] Comment on above: Performed By: #### L AB294 #### Monument Mason: HIPOLITO WOODS ([id number]) [facility]) [address] [place] [address] WBC (Bld) [#/Vol] 9.8 10*3/uL Normal 3.6-10.7 [facility] Comment on above: Performed By: #### L AB294 #### Monument Mason: HIPOLITO WOODS ([id number]) [facility]) [address] [place] [address] Erythrocyte distribution width (RBC) [Ratio] 12.5 % Normal 11.5-15.0 [facility] Comment on above: Performed By: #### L AB103, LAB15 #### Monument Mason: HIPOLITO WOODS ([id number]) [facility] ([facility]) [address] [place] [address] Hematocrit (Bld) [Volume fraction] 23.9 % Low 40.0-52.0 [facility] Comment on above: Performed By: #### L AB103, LAB15 #### Monument Mason: HIPOLITO WOODS ([id number]) [facility]) [address] [place] [address] Hemoglobin (Bld) [Mass/Vol] 8.0 g/dL Low 13.0-18.0 [facility] Comment on above: Performed By: #### L AB103, LAB15 #### Monument Mason: HIPOLITO WOODS ([id number]) [facility] ([facility]) [address] [place] [address] MCH (RBC) [Entitic mass] 31.3 pg Normal 26.0-34.0 [facility] Comment on above: Performed By: #### L AB103, LAB15 #### Monument Mason: HIPOLITO WOOSD ([id number]) [facility] ([facility]) [address] [place] [address] MCHC 33.5 % Normal 30.5-36.0 [facility] Comment on above: Performed By: #### L AB103, LAB15 #### Monument Mason: HIPOLITO WOODS ([id number]) [facility]) [address] [place] [address] MCV (RBC) [Entitic vol] 93.4 fL Normal 77.0-99.0 [facility] Comment on above: Performed By: #### L AB103, LAB15 #### Monument Mason: HIPOLITO WOODS ([id number]) [facility] ([facility]) [address] [place] [address] Platelet mean volume (Bld) [Entitic vol] 11.2 fL Normal 9.0-12.7 [facility] Comment on above: Performed By: #### L AB103, LAB15 #### Monument Mason: HIPOLITO WOODS ([id number]) [facility]) [address] [place] [address] [place] Platelets (Bld) [#/Vol] 169 10*3/uL Normal 140-440 [facility] Comment on above: Performed By: #### L AB103, LAB15 #### Monument Mason: HIPOLITO WOODS ([id number]) [facility]) [address] [place] [address] RBC (Bld) [#/Vol] 2.56 10*6/uL Low 4.40-5.90 [facility] Comment on above: Performed By: #### L AB103, LAB15 #### Monument Mason: HIPOLITO WOODS ([id number]) [facility] ([facility]) [address] [place] [address] WBC (Bld) [#/Vol] 7.6 10*3/uL Normal 3.6-10.7 [facility] Comment on above: Performed By: #### L AB103, LAB15 #### Monument Mason: HIPOLITO WOODS ([id number]) [facility]) [address] [place] [address] Erythrocyte distribution width (RBC) [Ratio] 12.4 % Normal 11.5-15.0 [facility] Comment on above: Performed By: #### L AB294 ####Monument Mason: HIPOLITO WOODS ([id number])[facility])[address] [place] [address] Hematocrit (Bld) [Volume fraction] 37.9 % Low 40.0-52.0 [facility] Comment on above: Performed By: #### L AB294 ####Monument Mason: HIPOLITO WOODS ([id number])[facility])[address] [place] [address] Hemoglobin (Bld) [Mass/Vol] 12.9 g/dL Low 13.0-18.0 [facility] Comment on above: Performed By: #### L AB294 ####Monument Mason: HIPOLITO WOODS ([id number])[facility])[address] [place] [address] MCH (RBC) [Entitic mass] 30.9 pg Normal 26.0-34.0 [facility] Comment on above: Performed By: #### L AB294 ####Monument Mason: HIPOLITO WOODS ([id number])[facility])[address] [place] [address] MCHC 34.0 % Normal 30.5-36.0 [facility] Comment on above: Performed By: #### L AB294 ####Monument Mason: HIPOLITO WOODS ([id number])[facility])[address] [place] [address] MCV (RBC) [Entitic vol] 90.9 fL Normal 77.0-99.0 [facility] Comment on above: Performed By: #### L AB294 ####Monument Mason: HIPOLITO WOODS ([id number])[facility])[address] [place] [address] Platelet mean volume (Bld) [Entitic vol] 10.9 fL Normal 9.0-12.7 [facility] Comment on above: Performed By: #### L AB294 ####Monument Mason: HIPOLITO WOODS ([id number])[facility] ([facility])[address] [place] [address] Platelets (Bld) [#/Vol] 261 10*3/uL Normal 140-440 [facility] Comment on above: Performed By: #### L AB294 ####Monument Mason: HIPOLITO WOODS ([id number])[facility])[address] [place] [address] RBC (Bld) [#/Vol] 4.17 10*6/uL Low 4.40-5.90 [facility] Comment on above: Performed By: #### L AB294 ####Monument Mason: HIPOLITO WOODS ([id number])[facility])[address] [place] [address] WBC (Bld) [#/Vol] 5.5 10*3/uL Normal 3.6-10.7 [facility] Comment on above: Performed By: #### L AB294 ####Monument Mason: HIPOLITO WOODS ([id number])[facility] ([address] CBC panel Auto (Bld)on 01-29 Erythrocyte distribution width (RBC) [Ratio] 12.5 % 11.5 - 15.0 % [facility] Hematocrit (Bld) [Volume fraction] 29.2 % Low 40.0 - 52.0 % [facility] Hemoglobin (Bld) [Mass/Vol] 9.6 g/dL Low 13.0 - 18.0 g/dL [facility] Interpretation and review of laboratory results Abnormal [facility] MCH (RBC) [Entitic mass] 31.3 pg 26. 0 - 34.0 pg [facility] MCHC (RBC) [Mass/Vol] 32.9 % 30.5 - 36.0 % [facility] MCV (RBC) [Entitic vol] 95.1 fL 77.0 - 99.0 fL [facility] Platelet mean volume (Bld) [Entitic vol] 11 fL 9.0 - 12.7 fL [facility] Platelets (Bld) [#/Vol] 164 10*3/uL 140 - 440 10*3/uL [facility] RBC (Bld) [#/Vol] 3.07 10*6/uL Low 4.40 - 5.9 0 10*6/uL [facility] WBC (Bld) [#/Vol] 9.8 10*3/uL 3.6 - 10.7 10*3/uL [facility] Erythrocyte distribution width (RBC) [Ratio] 12.4 % 11.5 - 15.0 % [facility] Hematocrit (Bld) [Volume fraction] 37.9 % Low 40.0 - 52.0 % [facility] Hemoglobin (Bld) [Mass/Vol] 12.9 g/dL Low 13.0 - 18.0 g/dL [facility] Interpretation and review of laboratory results Abnormal [facility] th MCH (RBC) [Entitic mass] 30.9 pg 26. 0 - 34.0 pg [facility] MCHC (RBC) [Mass/Vol] 34 % 30.5 - 36.0 % [facility] MCV (RBC) [Entitic vol] 90.9 fL 77.0 - 99.0 fL [facility] Platelet mean volume (Bld) [Entitic vol] 10.9 fL 9.0 - 12.7 fL [facility] Platelets (Bld) [#/Vol] 261 10*3/uL 140 - 440 10*3/uL [facility] RBC (Bld) [#/Vol] 4.17 10*6/uL Low 4.40 - 5.9 0 10*6/uL [facility] WBC (Bld) [#/Vol] 5.5 10*3/uL 3.6 - 10.7 10*3/uL [facility] CBC panel Auto (Bld)Ordered By: Fara Moise on 01-29-2025 Erythrocyte distribution width (RBC) [Ratio] 12.5 % 11.5 - 15.0 % [facility] Hematocrit (Bld) [Volume fraction] 23.9 % Low 40.0 - 52.0 % [facility] Hemoglobin (Bld) [Mass/Vol] 8 g/dL Low 13.0 - 18.0 g/dL [facility] Interpretation and review of laboratory results Abnormal [facility] MCH (RBC) [Entitic mass] 31.3 pg 26. 0 - 34.0 pg [facility] MCHC (RBC) [Mass/Vol] 33.5 % 30.5 - 36.0 % [facility] MCV (RBC) [Entitic vol] 93.4 fL 77.0 - 99.0 fL [facility] Platelet mean volume (Bld) [Entitic vol] 11.2 fL 9.0 - 12.7 fL [facility] Platelets (Bld) [#/Vol] 169 10*3/uL 140 - 440 10*3/uL [facility] RBC (Bld) [#/Vol] 2.56 10*6/uL Low 4.40 - 5.9 0 10*6/uL [facility] WBC (Bld) [#/Vol] 7.6 10*3/uL 3.6 - 10.7 10*3/uL [facility] COMPREHENSIVE METABOLIC PANE Anthony 01-29-2025 Albumin [Mass/Vol] 3.7 g/dL Normal 3.4-4.8 [facility] Comment on above: Performed By: #### L AB17, [id number] ####Monument Mason: HIPOLITO WOODS ([id number])[facility])[address] [place] [address] [place] ALP [Catalytic activity/Vol] 38 U/L Low 40-150 [facility] Comment on above: Performed By: #### L AB17, [id number] ####Monument Mason: HIPOLITO WOODS ([id number])[facility])[address] [place] [address] [place] ALT [Catalytic activity/Vol] 6 U/L Normal <40 [facility] Comment on above: Performed By: #### L AB17, [id number] ####Monument Mason: HIPOLITO WOODS ([id number])[facility] ([facility])[address] [place] [address] Anion gap [Moles/Vol] 11 mmol/L Normal 3-13 [facility] Comment on above: Performed By: #### L AB17, [id number] ####Monument Mason: HIPOLITO WOODS ([id number])[facility] ([facility])[address] [place] [address] AST [Catalytic activity/Vol] 29 U/L Normal <34 [facility] Comment on above: Performed By: #### L AB17, [id number] ####Monument Mason: HIPOLITO WOODS ([id number])[facility] ([facility])[address] [place] [address] Bilirubin [Mass/Vol] 0.9 mg/dL Normal <1.2 [facility] Comment on above: Performed By: #### L AB17, [id number] ####Monument Mason: HIPOLITO WOODS ([id number])[facility] ([facility])[address] [place] [address] Calcium [Mass/Vol] 8.7 mg/dL Low 8.8-10.0 [facility] Comment on above: Performed By: #### L AB17, [id number] ####Monument Mason: HIPOLITO WOODS ([id number])[facility] ([facility])[address] [place] [address] [place] Chloride [Moles/Vol] 109 mmol/L High 98-[address] [facility] Comment on above: Performed By: #### L AB17, [id number] ####Monument Mason: HIPOLITO WOODS ([id number])[facility])[address] [place] [address] CO2 [Moles/Vol] 23 mmol/L Normal 23-31 [facility] Comment on above: Performed By: #### L AB17, [id number] ####Monument Mason: HIPOLITO WOODS ([id number])[facility])[address] [place] [address] Creatinine [Mass/Vol] 1.12 mg/dL Normal 0.72-1.25 [facility] Comment on above: Performed By: #### L AB17, [id number] ####Monument Mason: HIPOLITO WOODS ([id number])[facility])[address] [place] [address] GLOMERULAR FILTRATION RATE ML/MIN/1.73 SQ M.PREDICTED 70.7 mL/min/1.73m*2 Normal >60.0 [facility] Comment on above: Result Comment: Calc ulation based on the Chronic Kidney Disease Epidemiology Collaboration (CKD-EPI) equation refit without adjustment for race Performed By: #### L AB17, [id number] ####Monument Mason: HIPOLITO WOODS ([id number])[facility])[address] [place] [address] Glucose [Mass/Vol] 139 mg/dL High 82-115 [facility] Comment on above: Performed By: #### L AB17, [id number] ####Monument Mason: HIPOLITO WOODS ([id number])[facility])[address] [place] [address] [place] Potassium [Moles/Vol] 3.1 mmol/L Low 3.5-5.1 [facility] Comment on above: Result Comment: [facility] potassium values may be up to 0.5 mmol/L lower than serum values. Performed By: #### L AB17, [id number] ####Monument Mason: HIPOLITO WOODS ([id number])[facility])[address] [place] [address] Protein [Mass/Vol] 5.2 g/dL Low 6.4-8.3 [facility] Comment on above: Performed By: #### L AB17, [id number] ####Monument Mason: HIPOLITO WOODS ([id number])[facility] ([facility])[address] [place] [address] Sodium [Moles/Vol] 143 mmol/L Normal 136-145 [facility] Comment on above: Performed By: #### L AB17, [id number] ####Monument Mason: HIPOLITO WOODS ([id number])[facility])[address] [place] [address] Urea nitrogen [Mass/Vol] 20 mg/dL Normal 9-23 [facility] Comment on above: Performed By: #### L AB17, [id number] ####Monument Mason: HIPOLITO WOODS ([id number])[facility])[address] [place] [address] Albumin [Mass/Vol] 3.7 g/dL Normal 3.4-4.8 [facility] Comment on above: Performed By: #### L AB17 ####Monument Mason: HIPOLITO WOODS ([id number])[facility] ([facility])[address] [place] [address] ALP [Catalytic activity/Vol] 62 U/L Normal 40-150 [facility] Comment on above: Performed By: #### L AB17 ####Monument Mason: HIPOLITO WOODS ([id number])[facility])[address] [place] [address] [place] ALT [Catalytic activity/Vol] 19 U/L Normal <40 [facility] Comment on above: Performed By: #### L AB17 ####Monument Mason: HIPOLITO WOODS ([id number])[facility])[address] [place] [address] Anion gap [Moles/Vol] 7 mmol/L Normal 3-13 [facility] Comment on above: Performed By: #### L AB17 ####Monument Mason: HIPOLITO WOODS ([id number])[facility] [place] [address] [place] AST [Catalytic activity/Vol] 22 U/L Normal <34 [facility] Comment on above: Performed By: #### L AB17 ####Monument Mason: HIPOLITO WODOS ([id number])[facility] [place] [address] [place] Bilirubin [Mass/Vol] 0.6 mg/dL Normal <1.2 [facility] Comment on above: Performed By: #### L AB17 ####Monument Mason: HIPOLITO WOODS ([id number])[facility] ([facility])[address] [place] [address] Calcium [Mass/Vol] 9.0 mg/dL Normal 8.8-10.0 [facility] Comment on above: Performed By: #### L AB17 ####Monument Mason: HIPOLITO WOODS ([id number])[facility] [place] [address] [place] Chloride [Moles/Vol] 108 mmol/L High 98-107 [facility] Comment on above: Performed By: #### L AB17 ####Monument Mason: HIPOLITO WOODS ([id number])[facility] [place] [address] [place] CO2 [Moles/Vol] 25 mmol/L Normal 23-[address] [facility] Comment on above: Performed By: #### L AB17 ####Monument Mason: HIPOLITO WOODS ([id number])[facility] [place] [address] [place] Creatinine [Mass/Vol] 1.21 mg/dL Normal 0.72-1.25 [facility] Comment on above: Performed By: #### L AB17 ####Monument Mason: HIPOLITO WOODS ([id number])[facility] [place] [address] [place] GLOMERULAR FILTRATION RATE ML/MIN/1.73 SQ M.PREDICTED 64.4 mL/min/1.73m*2 Normal >60.0 [facility] Comment on above: Result Comment: Calc ulation based on the Chronic Kidney Disease Epidemiology Collaboration (CKD-EPI) equation refit without adjustment for race Performed By: #### L AB17 ####Monument Mason: HIPOLITO WOODS ([id number])[facility])[address] [place] [address] Glucose [Mass/Vol] 171 mg/dL High 82-115 [facility] Comment on above: Performed By: #### L AB17 ####Monument Mason: HIPOLITO WOODS ([id number])[facility])[address] [place] [address] Potassium [Moles/Vol] 3.4 mmol/L Low 3.5-5.1 [facility] Comment on above: Result Comment: [facility] potassium values may be up to 0.5 mmol/L lower than serum values. Performed By: #### L AB17 ####Monument Mason: HIPOLITO WOODS ([id number])[facility])[address] [place] [address] Protein [Mass/Vol] 6.5 g/dL Normal 6.4-8.3 [facility] Comment on above: Performed By: #### L AB17 ####Monument Mason: HIPOLITO WOODS ([id number])[facility])[address] [place] [address] Sodium [Moles/Vol] 140 mmol/L Normal 136-145 [facility] Comment on above: Performed By: #### L AB17 ####Monument Mason: HIPOLITO WOODS ([id number])[facility])[address] [place] [address] [place] Urea nitrogen [Mass/Vol] 21 mg/dL Normal 9-23 [facility] Comment on above: Performed By: #### L AB17 ####Monument Mason: HIPOLITO WOODS ([id number])[facility])[address] [place] [address] Calcium.ionized [Moles/Vol]O rdered By: Meryl Buitrago on 01-29-2025 Calcium.ionized (Bld) [Moles/Vol] 4.5 mg/dL 4.30 - 5.20 mg/dL [facility] Interpretation and review of laboratory results Abnormal [facility] PH, IONIZED CALCIUM 7.3 Low 7.31 - 7.46 [facility] Calcium.ionized [Moles/Vol]o n 01-29-2025 Calcium.ionized (Bld) [Moles/Vol] 4.8 mg/dL 4.30 - 5.20 mg/dL [facility] Interpretation and review of laboratory results Normal [facility] PH, IONIZED CALCIUM 7.44 7.31 - 7.46 [facility] Central Venous Lineon 2024 HARMONY Naik CRNA 01/29/2025 1:12 PM Central Venous Line: Date/Time: 01/29/2025 12:25 PM A central venous line was placed in the Procedural for the following indication(s): Sterility preparation included the following: provider hand hygiene performed prior to central venous catheter insertion, all 5 sterile barriers used (gloves, gown, cap, mask, large sterile drape) during central venous catheter insertion, antiseptic used during central venous catheter insertion and skin prep agent completely dried prior to procedure. Medical reason for not performing maximal sterile barrier technique: no The patient was placed in Trendelenburg position. Right The site was prepped with Chlorhexidine. Size: 8.5 Fr Catheter type: introducer During the procedure, the following specific steps were taken: target vein identified, needle advanced into vein and blood aspirated and guidewire advanced into vein.The procedure was performed using ultrasound guidance . Sterile gel and probe cover used in ultrasound-guided central venous catheter insertion. Intravenous verification was obtained by ultrasound. Post insertion care included: all ports aspirated, all ports flushed easily, guidewire removed intact, Biopatch applied, line sutured in place and dressing applied. During the procedure the patient experienced: patient tolerated procedure well with no complications. Staffing Performed: SRNA and anesthesiologist Anesthesiologist: Elías Diaz DO [facility] Comprehensive metabolic 1998 panelon 01-29-2025 Albumin [Mass/Vol] 3.7 g/dL 3.4 - 4.8 g/dL [facility] ALP [Catalytic activity/Vol] 38 U/L Low 40 - 150 U/L [facility] ALT [Catalytic activity/Vol] 6 U/L NINF - 40 U/L [facility] Anion gap [Moles/Vol] 11 mmol/L 3 - 13 mmol/L [facility] AST [Catalytic activity/Vol] 29 U/L NINF - 34 U/L [facility] Bilirubin [Mass/Vol] 0.9 mg/dL NINF - 1.2 mg/dL [facility] Calcium [Mass/Vol] 8.7 mg/dL Low 8.8 - 10. 0 mg/dL [facility] Chloride [Moles/Vol] 109 mmol/L High 98 - 10 7 mmol/L [facility] CO2 [Moles/Vol] 23 mmol/L 23 - 31 mmol/L [facility] Creatinine [Mass/Vol] 1.12 mg/dL 0.72 - 1.25 mg/dL [facility] GFR/1.73 sq M.predicted (S/P/Bld) [Vol rate/Area] 70.7 mL/min - PINF [facility] Glucose [Mass/Vol] 139 mg/dL High 82 - 115 mg/dL [facility] Interpretation and review of laboratory results Abnormal [facility] th Potassium [Moles/Vol] 3.1 mmol/L Low 3.5 - 5.1 mmol/L [facility] Protein [Mass/Vol] 5.2 g/dL Low 6.4 - 8.3 g/dL [facility] Sodium [Moles/Vol] 143 mmol/L 136 - 145 mmol/L [facility] Urea nitrogen [Mass/Vol] 20 mg/dL 9 - 23 mg/d L [facility] Albumin [Mass/Vol] 3.7 g/dL 3.4 - 4.8 g/dL [facility] ALP [Catalytic activity/Vol] 62 U/L 40 - 150 U/L [facility] ALT [Catalytic activity/Vol] 19 U/L NINF - 40 U/L [facility] Anion gap [Moles/Vol] 7 mmol/L 3 - 13 mmol/L [facility] AST [Catalytic activity/Vol] 22 U/L NINF - 34 U/L [facility] Bilirubin [Mass/Vol] 0.6 mg/dL NINF - 1.2 mg/dL [facility] Calcium [Mass/Vol] 9 mg/dL 8.8 - 10. 0 mg/dL [facility] Chloride [Moles/Vol] 108 mmol/L High 98 - 10 7 mmol/L [facility] CO2 [Moles/Vol] 25 mmol/L 23 - 31 mmol/L [facility] Creatinine [Mass/Vol] 1.21 mg/dL 0.72 - 1.25 mg/dL [facility] GFR/1.73 sq M.predicted (S/P/Bld) [Vol rate/Area] 64.4 mL/min - PINF [facility] Glucose [Mass/Vol] 171 mg/dL High 82 - 115 mg/dL [facility] Interpretation and review of laboratory results [facility] [facility] Potassium [Moles/Vol] 3.4 mmol/L Low 3.5 - 5.1 mmol/L [facility] Protein [Mass/Vol] 6.5 g/dL 6.4 - 8.3 g/dL [facility] Sodium [Moles/Vol] 140 mmol/L 136 - 145 mmol/L [facility] Urea nitrogen [Mass/Vol] 21 mg/dL 9 - 23 mg/d L [facility] Consulton 01-29-2025 Consult - Attestation signed by Sunny Youssef DO at 01/29/2025 6:18 PM I have personally performed a [id number] diagnostic evaluation on this patient on date of service 01/29/25. History, labs, imaging studies, and electronic medical record have been reviewed by me. This note documented by the []Critical Care Fellow []store warehouse associate [x]KIM reflects my history, exam, and medical decision making. I have reviewed and agree with the care plan. Changes were made in the orders as necessary. ROS documentation was reviewed and negative unless otherwise stated in HPI. Additional pertinent interval history, ROS, and physical exam findings: AdmitDate = 01/29/2025 LOS: 0 POD0 CABGx3 for MVCAD. Agree w/ remainder of info in KIM consult note. Assessment: MVCAD s/p CABGx3 Post op pulm mgmt. T2DM with stress hyperglyemia HTN Gerd Plan: Agree with plan in kim note. Attempt to fast track extubation in 6 hr window. Repeat CXR at 1999 for PTX monitoring. Pt has CT's in place. Disposition: in HLU post op Critical Care Time: 25min Or Noncritical Care Time: n/a Total time caring for this patient including direct patient contact, review of data including imaging and labs, discussions with other team members and physicians, excluding procedures. [facility]: Critical Care Consultation Note Date: 01/29/25 PATIENT NAME: Ryan Macedo : 1955 (69 y.o.) Reason for Consult: Critical Care & Vent Management Cardiology: Dr. Williamson HPI: 69 y.o.male with pmHx of GERD, HTN, HLD, OA, Gout and DM was seen in the OP setting by CTS for potential CABG. Initially patient underwent a stress test which was suggestive of ischemia at a moderate workload. He then underwent a cardiac cath which noted: MVCAD with severe disease involving the circumflex and RCA, moderately severe disease involving the LAD and mild LV systolic dysfunction. He consented and was taken to the operating room on 01/29/25 for CABG x [address] Herrera. Surgery: : s/p CABGx3 [address] Dr[address] Herrera Interval History: 01/29/25: POD #0: Patient arrived to the unit, intubated and sedated. Surgical hand off completed below. Surgery Hand Off: Arrival Time in CTVICU: 1613 Complications/Pertine nt Events: none noted Last Paralytic:1345 Medications given in route: none noted Gtts OR report Propofol: 50 Insulin: 2.5 Amicar: 29 Current gtts upon arrival Propofol: 50 Insulin: 2.5 Amicar: 29 Devices: Epicardial wires: yes [] no [x] Blood Transfusions Intra Op: yes [] no [x] CellSaver: yes Additional Interventions/Misc during Handoff None noted Review of Systems Unable to perform ROS: Intubated Allergies: Enalapril, Rosuvastatin, and Pravastatin Past Medical History: has a past medical history of Diabetes mellitus (HCC), GERD (gastroesophageal reflux disease), Gout, History of kidney stones, Hyperlipidemia, Hypertension, Lumbar stenosis, Osteoarthritis, and PONV (postoperative nausea and vomiting). Past Surgical History: has a past surgical history that includes Back surgery; Knee surgery (Right); and Rotator cuff repair (Left). Social History: reports that he has never smoked. He has never used smokeless tobacco. He reports that he does not drink alcohol and does not use drugs. Family History: family history includes Coronary artery disease in his brother and father; Diabetes in his mother; Heart Surgery in his father; Melanoma in his father. Medications: Prior to Admission medications Medication Sig Start Date End Date Taking? Authorizing Provider aspirin 81 MG EC tablet Take 81 mg by mouth daily. 12/11/24 Yes Historical Provider, dilTIAZem CD (Cardizem CD) 360 MG 24 hr capsule Take 360 mg by mouth daily. 07/31/24 Yes Historical Provider, ezetimibe (Zetia) 10 MG tablet Take 10 mg by mouth daily. Yes Historical Provider, famotidine (Pepcid) 40 MG tablet Take 40 mg by mouth Daily as needed for indigestion or heartburn. 12/11/24 Yes Historical Provider, glimepiride (Amaryl) 2 MG tablet Take 2 mg by mouth daily. Yes Historical Provider, hydroCHLOROthiazide (HYDRODiuril) 25 MG tablet Take 25 mg by mouth daily. 12/30/24 Yes Historical Provider, losartan (Cozaar) 100 MG tablet Take 100 mg by mouth daily. 12/11/24 Yes Historical Provider, mupirocin (Bactroban) 2 % ointment Using a q-tip, place small fingertip size amount into each nostril the night before surgery. Do not occlude nasal passage. 01/14/25 Yes Angela Mandel, OUTDOOR FITNESS TRAINER - ELECTRICAL ENGINEERING PROFESSOR cholecalciferol (Vitamin D-3) 50 MCG (1999) capsule Take 50 mcg by mouth daily. 12/11/24 Historical Provider, coenzyme Q-10 100 MG capsule Take 100 mg by mouth daily. 12/11/24 Historical Provi (more content not included)... Normal [facility] ECG 12-LEADon 01-29-2025 ECG 12-LEAD IMPRESSION: Sinus rhythm Borderline prolonged NV interval NS ST changes diffusely Electronically Signed On 01-29-2025 16:38:12 EDT by Lorne Staton Normal [facility] FIBRINOGENon 01-29-2025 FIBRINOGEN 116 mg/dL Low 200-400 [facility] Comment on above: Performed By: #### L [id number], [id number] ####Monument Mason: HIPOLITO WOODS ([id number])[address] FIBRINOGEN 105 mg/dL Low 200-400 [facility] Comment on above: Performed By: #### L [id number], [id number] ####Monument Mason: HIPOLITO WOODS ([id number])[facility] ([facility])[address] [place] [address] Fibrinogen Coag (PPP) [Mass/ Vol]Ordered By: Chloe Finch on 01-29-2025 Interpretation and review of laboratory results Abnormal [facility] Fibrinogen Coag (PPP) [Mass/ Vol]on 01-29-2025 Interpretation and review of laboratory results Abnormal [facility] Laboratory - Chemistry and C hemistry - challengeon 01-29-2025 Glucose [Mass/Vol] 206 mg/dL High 70 - 100 mg/dL [facility] Glucose [Mass/Vol] 225 mg/dL High 70 - 100 mg/dL [facility] Glucose [Mass/Vol] 230 mg/dL High 70 - 100 mg/dL [facility] Glucose [Mass/Vol] 218 mg/dL High 70 - 100 mg/dL [facility] Magnesium [Mass/Vol] 2.1 mg/dL 1.6 - 2 .6 mg/dL [facility] Glucose [Mass/Vol] 109 mg/dL High 70 - 100 mg/dL [facility] Glucose [Mass/Vol] 94 mg/dL 70 - 100 mg/dL [facility] Magnesium [Mass/Vol] 2.7 mg/dL High 1.6 - 2 .6 mg/dL [facility] Glucose [Mass/Vol] 111 mg/dL High 70 - 100 mg/dL [facility] Glucose [Mass/Vol] 167 mg/dL High 70 - 100 mg/dL [facility] Laboratory - Chemistry and C hemistry - challengeOrdered By: Vida Mcdaniel on 01-29-2025 Base excess Calc (Bld) [Moles/Vol] -1.1000 mmol/L -3.0 - 3.0 mmol/L [facility] CO2 (Bld) [Partial pressure] 35.4 mm[Hg] - PINF [facility] CO2 [Moles/Vol] 24.1 mmol/L 23.0 - 27.0 mmol/L [facility] HCO3 (Bld) [Moles/Vol] 23 mmol/L 21.0 - 25.0 mmol/L [facility] Oxygen (Bld) [Partial pressure] 324.4 mm[Hg] High [facility] pH (Bld) 7.43 [pH] 7.350 - 7.450 [facility] Laboratory - CoagulationOrde red By: Chloe Finch on 01-29-2025 Fibrinogen Coag (PPP) [Mass/Vol] 116 mg/dL Low 200 - 400 mg/dL [facility] Laboratory - Coagulationon 0 01-29-2025 aPTT Coag (PPP) [Time] 29 s 20.0 - 30.5 s [facility] INR Coag (PPP) [Relative time] 1.3 {INR} High 0.9 - 1.1 [facility] PT Coag (Bld) [Time] 13.8 s High 9.0 - 12.0 s [facility] Fibrinogen Coag (PPP) [Mass/Vol] 105 mg/dL Low 200 - 400 mg/dL [facility] aPTT Coag (PPP) [Time] 30.5 s 20.0 - 30.5 s [facility] INR Coag (PPP) [Relative time] 1.6 {INR} High 0.9 - 1.1 [facility] PT Coag (Bld) [Time] 16.2 s High 9.0 - 12.0 s [facility] aPTT Coag (PPP) [Time] 27.4 s 20.0 - 30.5 s [facility] INR Coag (PPP) [Relative time] 1.1 {INR} 0.9 - 1.1 [facility] PT Coag (Bld) [Time] 11.5 s 9.0 - 12.0 s [facility] Laboratory - Hematology and Cell countsOrdered By: Vida Mcdaniel on 01-29-2025 Hemoglobin (Bld) [Mass/Vol] 8.3 g/dL 7.0 g/dl [facility] MAGNESIUMon 01-29-2025 Magnesium [Mass/Vol] 2.1 mg/dL Normal 1.6-2.[address] [facility] Comment on above: Result Comment: TOM Peterson COMMENTS: Higher values can be expected in females during menses. Performed By: #### L [id number], [id number] ####Monument Mason: HIPOLITO WOODS ([id number])[address] Magnesium [Mass/Vol] 2.7 mg/dL High 1.6-2.[address] [facility] Comment on above: Result Comment: TOM Peterson COMMENTS: Higher values can be expected in females during menses. Performed By: #### L [id number], [id number], [id number] ####Monument Mason: HIPOLITO WOODS ([id number])[facility])[address] [place] [address] Magnesium [Mass/Vol]on 01-29 Interpretation and review of laboratory results Normal [facility] Interpretation and review of laboratory results Abnormal [facility] No Panel Informationon 01-29 Interpretation and review of laboratory results Abnormal [facility] Interpretation and review of laboratory results Abnormal [facility] Interpretation and review of laboratory results Abnormal [facility] Interpretation and review of laboratory results Abnormal [facility] Interpretation and review of laboratory results Abnormal [facility] Interpretation and review of laboratory results Abnormal [facility] Interpretation and review of laboratory results Normal [facility] CV EPIPHANY [facility] Interpretation and review of laboratory results Abnormal [facility] Interpretation and review of laboratory results Abnormal [facility] Interpretation and review of laboratory results Normal [facility] Interpretation and review of laboratory results Abnormal [facility] No Panel InformationOrdered By: Lorne Staton on 01-29-2025 P [place] 86 degrees [facility] Work Phone: [phone] NV Interval 215 ms [facility] Work Phone: QRS [place] 58 degrees [facility] Work Phone: [phone] QRSD Interval 111 ms [facility] Work Phone: QT Interval 456 ms [facility] Work Phone: QTC Interval 473 ms [facility] Work Phone: [phone] T Wave [place] 0 degrees [facility] Work Phone: [phone] [facility] Work Phone: [phone] No Panel InformationOrdered By: Vida Mcdaniel on 01-29-2025 Am[facility] Of Oxygen 100 [facility] Interpretation and review of laboratory results Abnormal [facility] Source Of Oxygen Ventilator [facility] Nursing Noteon 01-29-2025 Nursing Note Stop sign placed at computer Normal [facility] Op Noteon 01-29-2025 Op Note Cardiothoracic Surgery Operative Report Pre-operative Diagnosis: Multivessel coronary artery disease Post-operative Diagnosis: Multivessel coronary artery disease Procedure: Coronary revascularization x 3: Left internal mammary artery grafted to left anterior descending coronary artery, reverse saphenous vein graft graft to the first obtuse marginal coronary artery, reverse saphenous vein graft grafted to the right posterior descending coronary artery; endoscopic vein harvesting left lower extremity; intraoperative transesophageal echocardiography Surgeon: Ronnie Herrera MD Medical Transcriber(s): [] Alex Sims [] Juan Leong [x] Angie Rasmussen [x] [] Other Anesthesia: General Estimated blood loss: Difficult to estimate due to the nature of the surgery. Cell Saver and pump suction utilized. Total IV fluids: See anesthesia and perfusion record Blood Transfusion?: None Drains: Bilateral pleural and mediastinal drains Specimens: None Complications: None Condition: Stable upon transfer to the intensive care unit Prophylactic Antibiotics: Yes 1st or 2nd generation cephalosporin given (or other antibiotic in the event of an allergy) within 1 hour of surgical incision (two hours if receiving Vancomycin or flouroquinolone) If NO, indication reason why: [] Patient on continuous antibiotics for documented preoperative infection [] Other: The STS Risk Calculator score was calculated and discussed with the patient/family prior to surgery. Yes: [x] No: [] Not a risk calculated procedure [] Emergent or Emergent/Salvage Used of PARAS: Yes No due to: [] Subclavian stenosis [] Emergent or Emergent/Salvage [] Prior cardiothoracic surgery [] Prior mediastinal radiation [] No bypassable LAD disease, LAD not needed/bypassed: (This can include clean LAD, diffusely diseased LAD or other condition resulting in the LAD not being bypassed). Beta-aleksander within 24 hours prior to surgical incision: [x] Yes - please see documentation in EMR [] No [] Allergy [] Heart block [] COPD [] Hypotension BP: [] Bradycardia HR: INDICATIONS FOR SURGERY: 69-year-old patient with diabetes mellitus who has had exertional dyspnea underwent a stress test which was abnormal. A subsequent cardiac catheterization revealed multivessel coronary artery disease with a chronically occluded right coronary artery (with collateral reconstitution via [id number]-[id number] collaterals), and 90% stenosis at the ostium [...] in the fewest number of postprocedural interventions. The proposed operation would consist of a left internal mammary artery graft to the LAD, a vein graft to the distal right coronary artery system, and a vein graft to the obtuse marginal coronary artery with a proximal stenosis. DESCRIPTION OF PROCEDURE: Procedure Preparation: Patient was taken to the operative suite and placed under general endotracheal anesthesia. Monitoring lines were inserted by the department of anesthesia. Intraoperative transesophageal echocardiography was performed. The findings will follow under a separate dictation. The patient was positioned prepped and draped. Pressure and contact points were protected. An appropriate timeout was conducted. [facility]it [place] [facility] Cardiopulmonary Bypass: A LEFT lower extremity incision was made and the greater saphenous vein was procured using an endoscopic vein harvesting technique. The vein was prepared in the usual fashion and the incisions were closed in the usual manner. The vein had ADEQUATE caliber and size and had ADEQUATE flow. Simultaneously, a median sternotomy was employed and the left internal mammary artery was harvested in a skeletonized and pedicled fashion. The internal mammary artery had adequate caliber and flow. Prior to division of the left internal mammary artery, heparin was administered to obtain an ACT of greater than 400 seconds. The pericardium was open, marsupialized, and pursestrings were placed in preparation for central cannulation. Central cannulation progressed with a standard aortic cannula in the distal ascending aorta, a cardioplegia needle in the proximal ascending aorta and a multistage venous cannula via the right atrium into the inferior vena cava. Once cardiopulmonary bypass had been established examination of the heart, the coronary arteries, and overall anatomy was undertaken. Bypass graft length measurements were obtained with a heart full to adequately measure the length of the bypass grafts. Subsequently, the aorta was crossclamped and cardioplegia was admini (more content not included)... Normal [facility] PHOSPHORUSon 01-29-2025 Phosphate [Mass/Vol] 2.4 mg/dL Normal 2.3-4.[address] [facility] Comment on above: Performed By: #### L AB113, LAB15, [id number] ####Monument Mason: HIPOLITO WOODS ([id number])[address] PROTIME AND APTTon aPTT Coag (Bld) [Time] 29.0 s Normal 20.0-30.5 [facility] Comment on above: Performed By: #### L [id number], [id number] ####Monument Mason: HIPOLITO WOODS ([id number])[facility] ([facility])[address] [place] [address] INR Coag (PPP) [Relative time] 1.3 {INR} High 0.9-1.1 [facility] Comment on above: Result Comment: Mino mmended Anticoagulant Therapy: SEE BELOW ----- INR of 2.0 - 3.0 : - Prophylaxis of Venous Thrombosis (high-risk surgery) - Treatment of Venous Thrombosis - Treatment of Pulmonary Embolism (Includes tissue heart valves, Acute Myocardial Infarction to prevent systemic embolism, Valvular Heart Disease, and Atrial Fibrillation) ----- INR of 2.5 - 3.5 : - Mechanical Prosthetic Valves (high risk) - If oral anticoagulant therapy is used to prevent Myocardial Infarction Performed By: #### L [id number], [id number] ####Monument Mason: HIPOLITO WOODS ([id number])[facility])[address] [place] [address] PT Coag (PPP) [Time] 13.8 s High 9.0-12.[address] [facility] Comment on above: Performed By: #### L [id number], [id number] ####Monument Mason: HIPOLITO WOODS ([id number])[address] aPTT Coag (Bld) [Time] 30.5 s Normal 20.0-30.5 [facility] Comment on above: Performed By: #### L [id number], [id number] ####Monument Mason: HIPOLITO WOODS ([id number])[address] INR Coag (PPP) [Relative time] 1.6 {INR} High 0.9-1.1 [facility] Comment on above: Result Comment: Mino mmended Anticoagulant Therapy: SEE BELOW ----- INR of 2.0 - 3.0 : - Prophylaxis of Venous Thrombosis (high-risk surgery) - Treatment of Venous Thrombosis - Treatment of Pulmonary Embolism (Includes tissue heart valves, Acute Myocardial Infarction to prevent systemic embolism, Valvular Heart Disease, and Atrial Fibrillation) ----- INR of 2.5 - 3.5 : - Mechanical Prosthetic Valves (high risk) - If oral anticoagulant therapy is used to prevent Myocardial Infarction Performed By: #### L [id number], [id number] ####Monument Mason: HIPOLITO WOODS ([id number])[facility])[address] [place] [address] PT Coag (PPP) [Time] 16.2 s High 9.0-12.[address] [facility] Comment on above: Performed By: #### L [id number], [id number] ####Monument Mason: HIPOLITO WOODS ([id number])[facility] ([facility])[address] [place] [address] aPTT Coag (Bld) [Time] 27.4 s Normal 20.0-30.5 [facility] Comment on above: Performed By: #### L AB103, LAB15 #### Monument Mason: HIPOLITO WOODS ([id number]) [facility] ([facility]) [address] [place] [address] INR Coag (PPP) [Relative time] 1.1 {INR} Normal 0.9-1.1 [facility] Comment on above: Result Comment: Mino mmended Anticoagulant Therapy: SEE BELOW ----- INR of 2.0 - 3.0 : - Prophylaxis of Venous Thrombosis (high-risk surgery) - Treatment of Venous Thrombosis - Treatment of Pulmonary Embolism (Includes tissue heart valves, Acute Myocardial Infarction to prevent systemic embolism, Valvular Heart Disease, and Atrial Fibrillation) ----- INR of 2.5 - 3.5 : - Mechanical Prosthetic Valves (high risk) - If oral anticoagulant therapy is used to prevent Myocardial Infarction Performed By: #### Curly [id number], [id number] #### Monument Mason: HIPOLITO WOODS ([id number]) [facility] ([facility]) [address] [place] [address] PT Coag (PPP) [Time] 11.5 s Normal 9.0-12.[address] [facility] Comment on above: Performed By: #### Curly [id number], LAB15 #### Monument Mason: HIPOLITO WOODS ([id number]) [facility] ([facility]) [address] [place] [address] Phosphate [Moles/Vol]on 01-07 Interpretation and review of laboratory results Normal [facility] Phosphate [Mass/Vol] 2.4 mg/dL 2.3 - 4 .7 mg/dL [facility] Vital signsOrdered By: Lorne Staton on 01-29-2025 Heart rate 65 /min bpm [facility] [employer] Work Phone: XR CHEST 1 VIEWon 01-29-2025 XR CHEST 1 VIEW Patient Name: RYAN MACEDO : 1955 Exam Date/Time: 01/29/2025 20:00 Procedure: XR CHEST 1 VIEW Ordering Provider: YOUSSEF RYAN Reason For Exam: monitoring for PTX SINGLE FRONTAL VIEW OF THE CHEST CLINICAL INDICATION: monitoring for PTX TECHNIQUE: Single frontal view of the chest COMPARISON: Earlier today FINDINGS: Small right-sided pneumothorax not significantly changed. RIGHT central venous catheter tip in the SVC. Status post CABG. Bibasilar chest tubes. Mediastinal drain. LEFT basilar atelectasis. Mild cardiac enlargement. Scoliosis convex to the RIGHT. IMPRESSION: 1. Tubes and lines as described. Small right-sided pneumothorax not significantly different. LEFT basilar atelectasis. Report Dictated on Electronically Signed By: Tony Ziegler MD Electronically Signed Date/Time: 01/29/2025 8:54 PM EDT [facility] XR CHEST 1 VIEW Patient Name: RYAN MACEDO : 1955 Exam Date/Time: 01/29/2025 16:37 Procedure: XR CHEST 1 VIEW Ordering Provider: SHEIKH ANDREW Reason For Exam: Post op open heart surgery; ETT placement Gender: Male Age: 69 years History: Post op open heart surgery; ETT placement Exam: XR CHEST 1 VIEW COMPARISON: None. FINDINGS: The endotracheal tube tip is approximately 4 cm above the level of the scott. A right IJ vascular catheter tip overlies the superior vena cava. The endotracheal tube tip is below the hemidiaphragm but excluded from [id number]. A mediastinal drain and bilateral chest tubes are present. The trachea is midline. Median sternotomy wires and clips are present. The heart is not enlarged. A small right apical pneumothorax is present, likely postsurgical in etiology. There is no confluent consolidation or sizable pleural effusion. IMPRESSION: 1. Postsurgical changes (CABG). 2. Small right apical pneumothorax (likely postsurgical). Bilateral chest tubes and mediastinal drain present. 3. Support devices, as above.. Report Dictated on Electronically Signed By: Angela Arias MD Electronically Signed Date/Time: 01/29/2025 5:31 PM EDT Normal [facility] XR Chest Single viewon 01-29 [facility] RADIOLOGY [facility] Radiology Study observation (narrative) [facility] Radiology Study observation (narrative) Summangie Morgan [facility] XR Chest Single viewOrdered By: Tony Ziegler on 01-29-2025 [facility] Work Phone: XR Chest Single viewOrdered By: Angela Arias on 01-29-2025 [facility] [employer] Work Phone: Carotid Duplex Ultrasoundon 01-23-2025 Carotid Duplex Ultrasound [facility] [address] [place] [address] Carotid Duplex Ultrasound 01/23/25 0811 MR#: [id number] Acct: [id number] Name: RYAN MACEDO Rep #: [id number] : 1955 69 From: Ke Zapata MD Attending Dr: Dr. Ronnie Herrera MD Status: REG CLI Ordering Dr: Ronnie Herrera MD Date: 01/23/25 Location: CVS Sex: M C Admitted: Reason For Study Reason For Study: Bruit Rt. Velocities/BP Lt. Velocities/BP Prox CCA 71/9.5 cm/sec. Prox CCA 72.4/12.8 cm/sec. Mid CCA 72.1/17.1 cm/sec. Mid CCA 161.6/34.2 cm/sec. Dist CCA 114.3/13.9 cm/sec. Dist CCA 105.2/30.3 cm/sec. Bulb, 132.1/18.8 cm/sec. Prox ICA 81.8/16.7 cm/sec. Prox ICA 127.1/15.1 cm/sec. Mid ICA 63.3/19.3 cm/sec. Mid ICA 67.7/23.7 cm/sec. Dist ICA 52.3/16 cm/sec. Dist ICA 65.5/22.6 cm/sec. Lt. ICA/CCA = 0.51. Rt. ICA/CCA = 1.76. Prox ECA 148.4/14.5 cm/sec. Prox ECA 155.6/10.8 cm/sec. Lt. Vert. 52.5/14.7 cm/sec. Rt. Vert. 45.9/12.7 cm/sec. Right Extracranial There is homogeneous, smooth atherosclerotic plaque noted in the right common carotid artery. There is heterogeneous, irregular atherosclerotic plaque noted in the right internal carotid artery. There is intimal thickening but no significant atherosclerotic plaque noted in the right external carotid artery. Antegrade flow is noted in the right vertebral artery. There is homogeneous, irregular atherosclerotic plaque noted in the right bulb. Left Extracranial There is homogeneous, smooth atherosclerotic plaque noted in the left common carotid artery. There is heterogeneous, irregular atherosclerotic plaque noted in the left internal carotid artery. There is intimal thickening but no significant atherosclerotic plaque noted in the left external carotid artery. Antegrade flow is noted in the left vertebral artery. Procedure Carotid Duplex 48811. This is a Carotid Duplex examination using B-mode, color flow and specral Doppler. Exam performed in department. VL/Carotid Duplex Ultrasound Interpretation Summary Moderate (50-69%) stenosis right extracranial internal carotid. Mild (<50%) stenosis left extracranial internal carotid. Flow within the vertebral arteries is antegrade bilaterally. Ordering Physician: Ronnie Herrera Referring Physician: Miriam Gomez Performed By: Shavon Hurt RVT 01/23/25 1327 Date Ke Zapata MD CC: Dr. Ronnie Herrera MD; Dr. Miriam Gomez DO Date Dictated: 01/23/2511 Date Transcribed: 01/23/25 132 Exterminator Termite: Signed [facility] Duplex ultrasound of carotid artery reportOrdered By: Ke Zapata on 01-23-2025 Study report [facility] [address] [place] [address] Carotid Duplex Ultrasound 01/23/25 0811 MR#: [id number] Acct: [id number] Name: RYAN MACEDO Rep #:[id number] : 1955 69 From: Ke Zapata MD Attending Dr: Dr. Ronnie Herrera MD Status: REG CLI Ordering Dr: Ronnie Herrera MD Date: Location: CVS Sex: M C Admitted: Reason For Study Reason For Study: Bruit Rt. Velocities/BP Lt. Velocities/BP Prox CCA 71/9.5 cm/sec. Prox CCA 72.4/12.8 cm/sec. Mid CCA 72.1/17.1 cm/sec. Mid CCA 161.6/34.2 cm/sec. Dist CCA 114.3/13.9 cm/sec. Dist CCA 105.2/30.3 cm/sec. Bulb, 132.1/18.8 cm/sec. Prox ICA 81.8/16.7 cm/sec. Prox ICA 127.1/15.1 cm/sec. Mid ICA 63.3/19.3 cm/sec. Mid ICA 67.7/23.7 cm/sec. Dist ICA 52.3/16 cm/sec. Dist ICA 65.5/22.6 cm/sec. Lt. ICA/CCA = 0.51. Rt. ICA/CCA = 1.76. Prox ECA 148.4/14.5 cm/sec. Prox ECA 155.6/10.8 cm/sec. Lt. Vert. 52.5/14.7 cm/sec. Rt. Vert. 45.9/12.7 cm/sec. Right Extracranial There is homogeneous, smooth atherosclerotic plaque noted in the right common carotid artery. There is heterogeneous, irregular atherosclerotic plaque noted in the right internal carotid artery. There is intimal thickening but no significant atherosclerotic plaque noted in the right external carotid artery. Antegrade flow is noted in the right vertebral artery. There is homogeneous, irregular atherosclerotic plaque noted in the right bulb. Left Extracranial There is homogeneous, smooth atherosclerotic plaque noted in the left common carotid artery. There is heterogeneous, irregular atherosclerotic plaque noted in the left internal carotid artery. There is intimal thickening but no significant atherosclerotic plaque noted in the left external carotid artery. Antegrade flow is noted in the left vertebral artery. Procedure Carotid Duplex 28751. This is a Carotid Duplex examination using B-mode, color flow and specral Doppler. Exam performed in department. VL/Carotid Duplex Ultrasound Interpretation Summary Moderate (50-69%) stenosis right extracranial internal carotid. Mild (<50%) stenosis left extracranial internal carotid. Flow within the vertebral arteries is antegrade bilaterally. Ordering Physician: Ronnie Herrera Referring Physician: Miriam Gomez Performed By: Shavon Hurt RVT 01/23/25 1327 Date _ Ke Zapata MD CC: Dr. Ronnie Herrera MD; Dr. Miriam Gomez, ~ Date Dictated: 01/23/25 0811 Date Transcribed: 01/23/25 1327 Exterminator Termite: Signed [facility] Work Phone: [phone] 01-20-2025 [id number] Medication List Accurate as of January 20, [...] THINNERS OR ASPIRIN: CONTINUE TAKING YOUR ASPIRIN food preparation supervisor Hibiclens (chlorahexadine soap) from any pharmacy or [...] opt for a zero sugar fluid. PARKING: COMPUTER PROGRAMMER ANALYST AND PARKING IN THE MAIN DECK ARE [...] SAME DAY DESK AND CHECK IN. Normal [facility] 36on 01-16-2025 36 Patient had the TTE done at [facility] today, having carotid US done 01/23 at [facility]. Exam requests canceled at [facility] sent 01/16 LAR [facility] Echo Completeon 01-16-2025 Echo Complete [facility] [address] [place] [address] Echo Complete 01/16/25 1309 MR#: [id number] Acct: [id number] Name: RYAN MACEDO Rep #: [id number] : 1955 69 From: Stone Williamson MD Attending Dr: Dr. Ronnie Herrera MD Status: DEP CLI Ordering Dr: Ronnie Herrera MD Date: 01/16/25 Location: [facility] Sex: M C Admitted: Reason For [...] sec Doppler Measurements Calculations MV E max ryne: 58.8 cm/sec Lat Peak E' Ryne: 11.4 cm/sec Med Peak E' Ryne: 10.1 cm/sec MV A max ryne: 99.8 cm/sec E/E' lat: 5.1 E/E' med: [...] By: Violeta Le RCS 01/22/25637 Date Stone Williamson MD CC: Dr. Ronnie Herrera MD; Dr. Miriam Gomez DO Date Dictated: 01/16/25 1309 Date Transcribed: 01/22/25637 Exterminator Termite: Signed [facility] 36on 01-14-2025 36 Surg proc orders placed Angela Mandel APRN - ELECTRICAL ENGINEERING PROFESSOR 09/09/25 [facility] Progress Noteon 01-14-2025 Progress Note Pre op teaching done with patient. Instructed to hold NSAIDS 7 days prior to surgery. All other medications per [facility] protocol. Pharmacy confirmed. All questions answered. Normal [facility] Progress Note [facility]ARD[facility] SURGERY [address] [facility] [address] Dept: [phone] Dept Loc: [phone] Visit type: New Reason for Visit: Multivessel coronary artery disease-evaluate for CABG Assessment and plan 69-year-old patient with diabetes mellitus who has had exertional dyspnea underwent a stress test which was abnormal. A subsequent cardiac catheterization revealed multivessel coronary artery disease with a chronically occluded right coronary artery (with collateral reconstitution via mrrh-rw-tsnia collaterals), and 90% stenosis at the ostium [...] days)* 63.7% History of Present Illness Ryan Macedo is a 69 y.o. male referred by [...] Normal appearanc (more content not included)... Normal [facility] Cardiac Cath Diagnosticon Cardiac Cath Diagnostic [facility] Imaging Services [address] [place] [address] Cardiac Cath Diagnostic MR#: [id number] Acct: [id number] Name: RYAN MACEDO Rep #: [id number] : 1955 69 From: Stone Williamson MD PCP: Dr. Miriam Gomez, DO Status:REG [facility] Patient Name: RYAN MACEDO Study Date: 12/25/2024 Performing: Stone Williamson MD Ht: 76 inches 193.04 cm : 1955 Wt: 202.01 lbs 91.63 kg Age: 69 Gender: male BSA: 2.22 PROCEDURE(S) PERFORMED DC01-(58167)LHC/COR/L V CLINICAL PROFILE AND INDICATIONS Indications: Suspected CAD [...] multiple views using a 5 Fr. 4.0 Usk catheter. Right Coronary Artery selective angiography was then performed in multiple views using a 5 Fr. 4.0 Usk catheter. Left Ventriculography was performed in MASTERS [...] vessel appears to be mildly diseased only. Bpir-mp-xnsvw collaterals are noted. CIRCUMFLEX ARTERY: Mild calcification, Codominant vessel. The proximal circumflex artery has a 70 to 80% stenotic lesion in the first obtuse marginal branch is subtotally occluded in the second obtuse marginal branch is calcified with a long 80% occlusion. Distal circumflex has mild disease and piey-sw-qqegx collaterals are noted. RIGHT CORONARY ARTERY: Codominant [...] MD On 12/25/2024 08:30:06 Stone Williamson MD 12/25/24829 Date Stone Williamson MD Cosigner Signature: Date (if indicated) CC: Dr. Stone Williamson MD; Dr. Miriam Gomez, DO Date Dictated: 12/25/24757 Date Transcribed: 12/25/24829 Exterminator Termite: CO Signed Normal [facility] Cardiac catheterization repo rtOrdered By: Stone Williamson on 12-25-2024 Cardiac catheterization study [facility] Imaging Services [address] [place] [address] Cardiac Cath Diagnostic MR#: [id number] Acct: [id number] Name: RYAN MACEDO Rep #:[id number] : 1955 69 From: Stone Willaimson MD PCP: Dr. Miriam Gomez, DO Status:[facility] Patient Name: RYAN MACEDO Study Date: 12/25/2024 Performing: Stone Williamson MD Ht: 76 inches 193.04 cm : 1955 Wt: 202.01 lbs 91.63 kg Age: 69 Gender: male BSA: 2.22 PROCEDURE(S) PERFORMED DC01-10091)LHC/COR/L V CLINICAL PROFILE AND INDICATIONS Indications: Suspected CAD [...] multiple views using a 5 Fr. 4.0 Usk catheter. Right Coronary Artery selective angiography was then performed in multiple views using a 5 Fr. 4.0 Usk catheter. Left Ventriculography was performed in MASTERS [...] vessel appears to be mildly diseased only. Lvbj-ht-vhice collaterals are noted. CIRCUMFLEX ARTERY: Mild calcification, Codominant vessel. The proximal circumflex artery has a 70 to 80% stenotic lesion in the first obtuse marginal branch is subtotally occluded in the second obtuse marginal branch is calcified with a long 80% occlusion. Distal circumflex has mild disease and ykcm-ny-kzofo collaterals are noted. RIGHT CORONARY ARTERY: Codominant [...] 08:30:06 Stone Williamson MD 12/25/24 0830 Date _ Stone Williamson MD Cosigner Signature: Date (if indicated) CC: Dr. Stone Williamson MD; Dr. Miriam Gomez DO ~ Date Dictated: 12/25/24757 Date Transcribed: 12/25/24829 Exterminator Termite: CO Signed [facility] Work Phone: Absolute lymphocyte countOrd ered By: Radha Adame on 12-11-2024 Lymphocytes Auto (Unsp spec) [#/Vol] 1.08 10*3/uL 0.83-4.51 [facility] Absolute neutrophil countOrd ered By: Radha Adame on 12-11-2024 Neutrophils (Bld) [#/Vol] 6.5 10*3/uL 2.0-7.7 [facility] Anion gap in Serum or Plasma Ordered By: Radha Adame on 12-11-2024 Anion gap [Moles/Vol] 14 mmol/L 5-15 [facility] Automated lymphocyte count a s percentage of total leukocytesOrdered By: Radha Adame on 12-11-2024 Lymphocytes/100 WBC Auto (Unsp spec) 12.5 % Low 19-41 [facility] BUN/creatinine ratioOrdered By: Radha Adame on 12-11-2024 Urea nitrogen/Creatinine [Mass ratio] 20.8 mg/mg High 10-20 [facility] Basic Metabolic Profile (BMP )on 12-11-2024 BUN/CRE 20.8 RATIO High - [facility] Comment on above: Performed By: #### L 500.2500, L100.0100 #### [facility] Laboratory [address] [place], [address] Calcium [Mass/Vol] 9.8 mg/dL Normal 7.6-11.0 [facility] Comment on above: Performed By: #### L 500.2500, L100.0100 #### [facility] Laboratory [address] [place], [address] Chloride [Moles/Vol] 99 mmol/L Normal 98-108 [facility] Comment on above: Performed By: #### L 500.2500, L100.0100 #### [facility] Laboratory [address] [place], [address] CO2 [Moles/Vol] 26.9 mmol/L Normal 21.0-32.0 [facility] Comment on above: Performed By: #### L 500.2500, L100.0100 #### [facility] Laboratory [address] [place], [address] Creatinine [Mass/Vol] 1.19 mg/dL Normal 0.70-1.20 [facility] Comment on above: Performed By: #### L 500.2500, L100.0100 #### [facility] Laboratory [address] [place], [address] GAP 14 Normal 5-15 [facility] Comment on above: Performed By: #### L 500.2500, L100.0100 #### [facility] Laboratory [address] [place], [address] GFR/1.73 sq M.predicted among non-blacks MDRD (S/P/Bld) [Vol rate/Area] 66 mL/min/{1.73_m2} Normal >60 [facility] Comment on above: Result Comment: mL/m in/1.73m2 CKD-EPI Creatinine Equation (2020) Performed By: #### L 500.2500, L100.0100 #### [facility] Laboratory [address] [place], [address] Glucose [Mass/Vol] 141 mg/dL High 70-99 [facility] Comment on above: Performed By: #### L 500.2500, L100.0100 #### [facility] Laboratory [address] [place], [address] Potassium [Moles/Vol] 3.9 mmol/L Normal 3.3-5.1 [facility] Comment on above: Result Comment: Hemo lysis present, Results??could be affected. ?? Performed By: #### L 500.2500, L100.0100 #### [facility] Laboratory [address] [place], [address] Sodium [Moles/Vol] 139 mmol/L Normal 133-145 [facility] Comment on above: Performed By: #### L 500.2500, L100.0100 #### [facility] Laboratory [address] [place], [address] Urea nitrogen [Mass/Vol] 25 mg/dL High 4-19 [facility] Comment on above: Performed By: #### L 500.2500, L100.0100 #### [facility] Laboratory [address] [place], [address] Basophil percentageOrdered B y: Radha Adame on 12-11-2024 Basophils/100 WBC (Bld) 0.3 % 0-1 [facility] CBC W/Diff, Automatedon 08-0 Absolute Lymph 1.08 X10 3/uL Normal 0.83-4.51 [facility] Comment on above: Performed By: #### L 500.2500, L100.0100 #### [facility] Laboratory [address] [place], [address] Absolute Neut 6.5 X10 3/uL Normal 2.0-7.7 [facility] Comment on above: Performed By: #### L 500.2500, L100.0100 #### [facility] Laboratory [address] [place], [address] Basophils/100 WBC (Bld) 0.3 % Normal 0-1 [facility] Comment on above: Performed By: #### L 500.2500, L100.0100 #### [facility] Laboratory [address] [place], [address] Eosinophils/100 WBC (Bld) 1.4 % Normal 0-5 [facility] Comment on above: Performed By: #### L 500.2500, L100.0100 #### [facility] Laboratory [address] [place], [address] Erythrocyte distribution width (RBC) [Ratio] 12.2 % Normal 11.6-14.6 [facility] Comment on above: Performed By: #### L 500.2500, L100.0100 #### [facility] Laboratory [address] [place], [address] Hematocrit (Bld) [Volume fraction] 38.2 % Low 40-54 [facility] Comment on above: Performed By: #### L 500.2500, L100.0100 #### [facility] Laboratory [address] [place], [address] Hemoglobin (Bld) [Mass/Vol] 13.0 g/dL Normal 13.0-16.5 [facility] Comment on above: Performed By: #### L 500.2500, L100.0100 #### [facility] Laboratory [address] [place], [address] IG% 0.900 Normal 0.0-0.9 [facility] Comment on above: Result Comment: IG% - Immature Granulocytes (promyelocytes, myelocytes and metamyelocytes) > 1% indicates that a LEFT SHIFT is Present. Performed By: #### L 500.2500, L100.0100 #### [facility] Laboratory [address] [place], [address] Lymphocytes/100 WBC (Bld) 12.5 % Low 19-41 [facility] Comment on above: Performed By: #### L 500.2500, L100.0100 #### [facility] [address] [place], [address] MCH (RBC) [Entitic mass] 31.2 pg Normal 27.0-32.0 [facility] Comment on above: Performed By: #### L 500.2500, L100.0100 #### [facility] Laboratory [address] [place], [address] MCHC (RBC) [Mass/Vol] 34.0 g/dL Normal 32-36 [facility] Comment on above: Performed By: #### L 500.2500, L100.0100 #### [facility] Laboratory [address] [place], [address] MCV (RBC) [Entitic vol] 91.6 fL Normal 80-94 [facility] Comment on above: Performed By: #### L 500.2500, L100.0100 #### [facility] [address] [place], [address] Monocytes/100 WBC (Bld) 10.1 % High 0-10 [facility] Comment on above: Performed By: #### L 500.2500, L100.0100 #### [facility] [address] [place], [address] Neutrophils/100 WBC (Bld) 74.8 % High 47-70 [facility] Comment on above: Performed By: #### L 500.2500, L100.0100 #### [facility] Laboratory [address] [place], [address] Nucleated RBC (Bld) [#/Vol] 0 10*3/uL Normal 0-5 [facility] Comment on above: Performed By: #### L 500.2500, L100.0100 #### [facility] Laboratory [address] [place], [address] Platelet mean volume (Bld) [Entitic vol] 10.4 fL Normal 6.2-12.0 [facility] Comment on above: Performed By: #### L 500.2500, L100.0100 #### [facility] Laboratory [address] [place], [address] Platelets (Bld) [#/Vol] 289 10*3/uL Normal 150-450 [facility] Comment on above: Performed By: #### L 500.2500, L100.0100 #### [facility] Laboratory [address] [place], [address] RBC (Bld) [#/Vol] 4.17 10*6/uL Low 4.6-6.2 [facility] Comment on above: Performed By: #### L 500.2500, L100.0100 #### [facility] Laboratory [address] [place], [address] RDW SD 40.8 fl Normal 35.1-43.9 [facility] Comment on above: Performed By: #### L 500.2500, L100.0100 #### [facility] Laboratory [address] [place], [address] WBC (Bld) [#/Vol] 8.6 10*3/uL Normal 4.4-11.0 [facility] Comment on above: Performed By: #### L 500.2500, L100.0100 #### [facility] Laboratory [address] [place], [address] Carbon dioxide, total [Moles /volume] in Central venous bloodOrdered By: Radha Adame on 12-11-2024 CO2 [Moles/Vol] 26.9 mmol/L 21.0-32.0 [facility] Cardiology Visit Reporton Cardiology Visit Report [facility] [address] [place] [address] OFFICE VISIT Date of Service: 12/11/24 MR#: [id number] Acct: [id number] Name: RYAN MACEDO Rep #: [id number] : 1955 Provider: GWYN Oliveros Age/Sex: 69/M Location: [facility] [place] Status: Signed HPI HPI History of Present Illness Details: Ryan Macedo is a 69 year old gentleman that [...] Source Monitor Intake Visit Reasons: POS. STRESS ([facility]) Abstract Manager Required: No Accompanied by: Is patient in [...] History (Updated 12/11/24 @ 07:50 by Radha PASCAL PA) History of back surgery H/O right knee surgery S/P right rotator cuff repair S/P left rotator cuff repair Family History (Updated 12/11/24 @ 13:18 by GWYN Preciado) Father CAD (coronary artery disease) Cancer melanoma [...] patient orient (more content not included)... Normal [facility] Chest PA and Lateralon 12-11 Chest PA and Lateral [facility] Imaging Services [address] [place], [place] [address] Chest PA and Lateral MR#: [id number] Acct: [id number] Name: RYAN MACEDO Rep #: [id number] : 1955 M 69 From: Timothy Clark PCP: Dr. Miriam Gomez DO Status: REG CLI Study: Chest PA and Lateral Date of Exam: 12/11/24 Exam# [id number] Ordering Dr: Radha Adame PA ADDENDUM by Dr. Manuel Masters MD on 12/12/24 at 0406 . Reading Location: [facility] 12/12/24 0406 Date cc: Dr. Miriam Gomez DO; GWYN Olivares * Signed PROCEDURE: CHEST [...] No acute process is seen. Reading Location: [place] [address] CC: Dr. Miriam Gomez, DO; GWYN Olivares Exterminator Termite: Signed Normal [facility] Chloride assayOrdered By: Neida Adame on 12-11-2024 Chloride [Moles/Vol] 99 mmol/L 98-108 [facility] Eosinophil percentageOrdered By: Radha Adame on 12-11-2024 Eosinophils/100 WBC (Bld) 1.4 % 0-5 [facility] Erythrocyte distribution wid th ratioOrdered By: Radha Adame on 12-11-2024 Erythrocyte distribution width (RBC) [Ratio] 12.2 % 11.6-14.6 [facility] Erythrocyte distribution wid th standard deviationOrdered By: Radha Adame on 12-11-2024 Erythrocyte distribution width (RBC) [Ratio] 40.8 fl 35.1-43.9 [facility] Glomerular filtration rate ( GFR) estimation/1.73 sq m using serum, plasma, or whole bOrdered By: Radha Adame on 12-11-2024 GFR/1.73 sq M.predicted among non-blacks MDRD (S/P/Bld) [Vol rate/Area] 66 mL/min/{1.73_m2} >60 [facility] Comment on above: mL/min/1.73m2 CKD-EP I Creatinine Equation (2020) Hematocrit Auto (Bld) [Volum e fraction]Ordered By: Radha Adame on 12-11-2024 Hematocrit (Bld) [Volume fraction] 38.2 % Low 40-54 [facility] Hemoglobin measurementOrdere d By: Radha Adame on 12-11-2024 Hemoglobin (Bld) [Mass/Vol] 13.0 g/dL 13.0-16.5 [facility] Immature granulocytes/100 WB C Auto (Bld)Ordered By: Radha Adame on 12-11-2024 Immature granulocytes/100 WBC (Bld) 0.900 % 0.0-0.9 [facility] Comment on above: IG% - Immature Granu locytes (promyelocytes, myelocytes and metamyelocytes) > 1% indicates that a LEFT SHIFT is Present. MCV (mean corpuscular volume ) determinationOrdered By: Radha Adame on 12-11-2024 MCV (RBC) [Entitic vol] 91.6 fL 80-94 [facility] Mean corpuscular hemoglobin (MCH) determinationOrdered By: Radha Adame on 12-11-2024 MCH (RBC) [Entitic mass] 31.2 pg 27.0-32.0 [facility] Mean corpuscular hemoglobin concentration (MCHC) determinationOrdered By: Radha Adame on 12-11-2024 MCHC (RBC) [Mass/Vol] 34.0 g/dL 32-36 [facility] Mean platelet volume determi nationOrdered By: Radha Adame on 12-11-2024 Platelet mean volume (Bld) [Entitic vol] 10.4 fL 6.2-12.0 [facility] Monocyte percentageOrdered B y: Radha Adame on 12-11-2024 Monocytes/100 WBC (Bld) 10.1 % High 0-10 [facility] Neutrophil percentageOrdered By: Radha Adame on 12-11-2024 Neutrophils/100 WBC (Bld) 74.8 % High 47-70 [facility] Nucleated red blood cell per centageOrdered By: Radha Adame on 12-11-2024 Nucleated RBC/100 WBC (Bld) [Ratio] 0 % 0-5 [facility] Platelet countOrdered By: Neida Adame on 12-11-2024 Platelets (Bld) [#/Vol] 289 10*3/uL 150-450 [facility] Potassium measurement (mass/ volume)Ordered By: Radha Adame on 12-11-2024 Potassium (Unsp spec) [Mass/Vol] 3.9 mmol/L 3.3-5.1 [facility] Comment on above: Hemolysis present, R esults could be affected. RBC Auto (Bld) [#/Vol]Ordere d By: Radha Adame on 12-11-2024 RBC (Bld) [#/Vol] 4.17 10*6/uL Low 4.6-6.2 [facility] Serum creatinine measurement (mass/volume)Ordered By: Radha Adame on 12-11-2024 Creatinine [Mass/Vol] 1.19 mg/dL 0.70-1.20 [facility] Serum glucose measurement (m ass/volume)Ordered By: Radha Adame on 12-11-2024 Glucose [Mass/Vol] 141 mg/dL High 70-99 [facility] Serum or plasma calcium shea urement (mass/volume)Ordered By: Radha Adame on 12-11-2024 Calcium [Mass/Vol] 9.8 mg/dL 7.6-11.0 [facility] Serum or plasma urea nitroge n measurement (mass/volume)Ordered By: Radha Adame on 12-11-2024 Urea nitrogen [Mass/Vol] 25 mg/dL High 4-19 [facility] Sodium levelOrdered By: Kris Adame on 12-11-2024 Sodium [Moles/Vol] 139 mmol/L 133-145 [facility] White blood cell (WBC) count Ordered By: Radha Adame on 12-11-2024 WBC (Bld) [#/Vol] 8.6 10*3/uL 4.4-11.0 [facility] Cardiovascular stress test r eportOrdered By: Stone Williamson on 12-05-[address] [facility] Cardiovascular Services [address] [place] [address] MR#: [id number] Acct: [id number] Name: RYAN MACEDO Rep #: [id number] : 1955 69 From: Stone Williamson MD Primary Care: Dr. Miriam Gomez DO Statu s: REG CLI Referring Dr: Miriam Gomez DO Sex: M C Stress Test Report [...] _ Stone Williamson MD CC: Dr. Miriam Gomez DO ~ Date Dictated: 12/05/241634 Date Transcribed: 12/05/241634 [employer]: [place] Signed [facility] Work Phone: Stress Reporton 12-05-[address] Stress [address] [facility] [address] [place] [id number] MR#: [id number] Acct: [id number] Name: RYAN MACEDO Rep #: [id number] : 1955 69 From: Stone Williamson MD Primary Care: Dr. Miriam Gomez DO Status: REG CLI Referring Dr: Miriam Gomez DO Sex: M C Stress Test Report [...] Date Stone Williamson MD CC: Dr. Miriam Gomez, DO Date Dictated: 12/05/241634 Date Transcribed: 12/05/241634 [employer]: [place] Signed Normal [facility] CBC W/Diff, Automatedon 02-06 Absolute Lymph 0.84 X10 3/uL Normal 0.83-4.51 [facility] Comment on above: Performed By: #### L 100.0100, L502.0250, L500.4050, L501.9985, L500.4100 #### [facility] [address] [place], [address] Absolute Neut 4.4 X10 3/uL Normal 2.0-7.7 [facility] Comment on above: Performed By: #### L 100.0100, L502.0250, L500.4050, L501.9985, L500.4100 #### [facility] [address] [place], [address] Basophils/100 WBC (Bld) 0.7 % Normal 0-1 [facility] Comment on above: Performed By: #### L 100.0100, L502.0250, L500.4050, L501.9985, L500.4100 #### [facility] [address] [place], [address] Eosinophils/100 WBC (Bld) 2.2 % Normal 0-5 [facility] Comment on above: Performed By: #### L 100.0100, L502.0250, L500.4050, L501.9985, L500.4100 #### [facility] [address] [place], [address] Erythrocyte distribution width (RBC) [Ratio] 12.6 % Normal 11.6-14.6 [facility] Comment on above: Performed By: #### L 100.0100, L502.0250, L500.4050, L501.9985, L500.4100 #### [facility] [address] [place], [address] Hematocrit (Bld) [Volume fraction] 40.0 % Normal 40-54 [facility] Comment on above: Performed By: #### L 100.0100, L502.0250, L500.4050, L501.9985, L500.4100 #### [facility] [address] [place], [address] Hemoglobin (Bld) [Mass/Vol] 13.1 g/dL Normal 13.0-16.5 [facility] Comment on above: Performed By: #### L 100.0100, L502.0250, L500.4050, L501.9985, L500.4100 #### [facility] [address] [place], [address] IG% 0.800 Normal 0.0-0.9 [facility] Comment on above: Result Comment: IG% - Immature Granulocytes (promyelocytes, myelocytes and metamyelocytes) > 1% indicates that a LEFT SHIFT is Present. Performed By: #### L 100.0100, L502.0250, L500.4050, L501.9985, L500.4100 #### [facility] [address] [place], [address] Lymphocytes/100 WBC (Bld) 14.1 % Low 19-41 [facility] Comment on above: Performed By: #### L 100.0100, L502.0250, L500.4050, L501.9985, L500.4100 #### [facility] [address] [place], [address] MCH (RBC) [Entitic mass] 30.5 pg Normal 27.0-32.0 [facility] Comment on above: Performed By: #### L 100.0100, L502.0250, L500.4050, L501.9985, L500.4100 #### [facility] [address] [place], [address] MCHC (RBC) [Mass/Vol] 32.8 g/dL Normal 32-36 [facility] Comment on above: Performed By: #### L 100.0100, L502.0250, L500.4050, L501.9985, L500.4100 #### [facility] [address] [place], [address] MCV (RBC) [Entitic vol] 93.2 fL Normal 80-94 [facility] Comment on above: Performed By: #### L 100.0100, L502.0250, L500.4050, L501.9985, L500.4100 #### [facility] [address] [place], [address] Monocytes/100 WBC (Bld) 9.0 % Normal 0-10 [facility] Comment on above: Performed By: #### L 100.0100, L502.0250, L500.4050, L501.9985, L500.4100 #### [facility] [address] [place], [address] Neutrophils/100 WBC (Bld) 73.2 % High 47-70 [facility] Comment on above: Performed By: #### L 100.0100, L502.0250, L500.4050, L501.9985, L500.4100 #### [facility] [address] [place], [address] Nucleated RBC (Bld) [#/Vol] 0 10*3/uL Normal 0-5 [facility] Comment on above: Performed By: #### L 100.0100, L502.0250, L500.4050, L501.9985, L500.4100 #### [facility] [address] [place], [address] Platelet mean volume (Bld) [Entitic vol] 11.3 fL Normal 6.2-12.0 [facility] Comment on above: Performed By: #### L 100.0100, L502.0250, L500.4050, L501.9985, L500.4100 #### [facility] [address] [place], [address] Platelets (Bld) [#/Vol] 269 10*3/uL Normal 150-450 [facility] Comment on above: Performed By: #### L 100.0100, L502.0250, L500.4050, L501.9985, L500.4100 #### [facility] [address] [place], [address] RBC (Bld) [#/Vol] 4.29 10*6/uL Low 4.6-6.2 [facility] Comment on above: Performed By: #### L 100.0100, L502.0250, L500.4050, L501.9985, L500.4100 #### [facility] [address] [place], [address] RDW SD 43.2 fl Normal 35.1-43.9 [facility] Comment on above: Performed By: #### L 100.0100, L502.0250, L500.4050, L501.9985, L500.4100 #### [facility] [address] [place], [address] WBC (Bld) [#/Vol] 6.0 10*3/uL Normal 4.4-11.0 [facility] Comment on above: Performed By: #### L 100.0100, L502.0250, L500.4050, L501.9985, L500.4100 #### [facility] [address] [place], [address] Comprehensive Metabolic [facility] ilon 02-27-2024 Albumin [Mass/Vol] 4.0 g/dL Normal 3.2-5.0 [facility] Comment on above: Performed By: #### L 100.0100, L502.0250, L500.4050, L501.9985, L500.4100 #### [facility] [address] [place], [address] Albumin/Globulin [Mass ratio] 1.1 {ratio} Normal 0.9-2.4 [facility] Comment on above: Performed By: #### L 100.0100, L502.0250, L500.4050, L501.9985, L500.4100 #### [facility] [address] [place], [address] ALK P 68 U/L Normal 45-117 [facility] Comment on above: Performed By: #### L 100.0100, L502.0250, L500.4050, L501.9985, L500.4100 #### [facility] [address] [place], [address] ALT [Catalytic activity/Vol] 28 U/L Normal 16-61 [facility] Comment on above: Performed By: #### L 100.0100, L502.0250, L500.4050, L501.9985, L500.4100 #### [facility] [address] [place], [address] AST [Catalytic activity/Vol] 14 U/L Low 15-37 [facility] Comment on above: Performed By: #### L 100.0100, L502.0250, L500.4050, L501.9985, L500.4100 #### [facility] [address] [place], [address] Bilirubin [Mass/Vol] 0.40 mg/dL Normal 0.20-1.00 [facility] Comment on above: Result Comment: For patients on eltrombopag therapy, use of Dimension [place] TBIL is not recommended. Performed By: #### L 100.0100, L502.0250, L500.4050, L501.9985, L500.4100 #### [facility] [address] [place], [address] BUN/CRE 24.4 RATIO High 10-20 [facility] Comment on above: Performed By: #### L 100.0100, L502.0250, L500.4050, L501.9985, L500.4100 #### [facility] [address] [place], [address] CA,Total 10.0 mg/dL Normal 8.5-10.1 [facility] Comment on above: Performed By: #### L 100.0100, L502.0250, L500.4050, L501.9985, L500.4100 #### [facility] [address] [place], [address] Chloride [Moles/Vol] 105 mmol/L Normal 98-107 [facility] Comment on above: Performed By: #### L 100.0100, L502.0250, L500.4050, L501.9985, L500.4100 #### [facility] [address] [place], [address] CO2 [Moles/Vol] 29.0 mmol/L Normal 21.0-32.0 [facility] Comment on above: Performed By: #### L 100.0100, L502.0250, L500.4050, L501.9985, L500.4100 #### [facility] [address] [place], [address] Creatinine [Mass/Vol] 1.27 mg/dL Normal 0.70-1.30 [facility] Comment on above: Result Comment: The validity of the calculated GFR GFRAA in patients over 70 years has not been determined. Clinical correlation is essential. Performed By: #### L 100.0100, L502.0250, L500.4050, L501.9985, L500.4100 #### [facility] [address] [place], [address] EST GFR - AA 72 mL/min Normal >60 [facility] Comment on above: Result Comment: Afri can [place] GFR Calc Performed By: #### L 100.0100, L502.0250, L500.4050, L501.9985, L500.4100 #### [facility] [address] [place], [address] GAP 6 Normal 5-15 [facility] Comment on above: Performed By: #### L 100.0100, L502.0250, L500.4050, L501.9985, L500.4100 #### [facility] [address] [place], [address] GFR/1.73 sq M.predicted among non-blacks MDRD (S/P/Bld) [Vol rate/Area] 60 mL/min/{1.73_m2} Normal >60 [facility] Comment on above: Result Comment: Non- GFR Calc Performed By: #### L 100.0100, L502.0250, L500.4050, L501.9985, L500.4100 #### [facility] [address] [place], [address] Globulin (S) [Mass/Vol] 3.5 g/dL Normal 2.2-4.2 [facility] Comment on above: Performed By: #### L 100.0100, L502.0250, L500.4050, L501.9985, L500.4100 #### [facility] [address] [place], [address] Glucose [Mass/Vol] 158 mg/dL High 74-106 [facility] Comment on above: Result Comment: Fast ing Glucose result greater than or equal to 126 mg/dL suggests DIABETES MELLITUS per A.D.A. criteria. Performed By: #### L 100.0100, L502.0250, L500.4050, L501.9985, L500.4100 #### [facility] [address] [place], [address] Potassium [Moles/Vol] 4.6 mmol/L Normal 3.5-5.1 [facility] Comment on above: Performed By: #### L 100.0100, L502.0250, L500.4050, L501.9985, L500.4100 #### [facility] [address] [place], [address] Sodium [Moles/Vol] 141 mmol/L Normal 136-145 [facility] Comment on above: Performed By: #### L 100.0100, L502.0250, L500.4050, L501.9985, L500.4100 #### [facility] [address] [place], [address] T PROT 7.5 g/dL Normal 6.4-8.2 [facility] Comment on above: Performed By: #### L 100.0100, L502.0250, L500.4050, L501.9985, L500.4100 #### [facility] [address] [place], [address] Urea nitrogen [Mass/Vol] 31 mg/dL High 7-18 [facility] Comment on above: Performed By: #### L 100.0100, L502.0250, L500.4050, L501.9985, L500.4100 #### [facility] [address] [place], [address] Hemoglobin A1con 02-27-2024 HbA1c (Bld) [Mass fraction] 7.1 % High 3.8-5.6 [facility] Comment on above: Result Comment: Norm al < 5.7 % Prediabetic 5.7 - 6.4 % Diabetic >or= 6.5 % Please note range changes. Performed By: #### L 100.0100, L502.0250, L500.4050, L501.9985, L500.4100 #### [facility] [address] [place], [address] Lipid Profileon 02-27-2024 Cholesterol [Mass/Vol] 195 mg/dL Normal 200 [facility] Comment on above: Result Comment: <200 mg/dL Desirable 200-240 mg/dL Borderline >240 mg/dL High Risk Performed By: #### L 100.0100, L502.0250, L500.4050, L501.9985, L500.4100 ####[facility] [address] [place], [address] Cholesterol in HDL [Mass/Vol] 44 mg/dL Normal [facility] Comment on above: Result Comment: The drugs N-Acetylcysteine and Metamizole may falsely depress this assay. Reference Range HDL <40 mg/dL Low HDL Cholesterol HDL >or= 60 mg/dL High HDL Cholesterol Performed By: #### L 100.0100, L502.0250, L500.4050, L501.9985, L500.4100 ####[facility] [address] [place], [address] Cholesterol in LDL [Mass/Vol] 132 mg/dL High 0-130 [facility] Comment on above: Performed By: #### L 100.0100, L502.0250, L500.4050, L501.9985, L500.4100 ####[facility] [address] [place], [address] Cholesterol in VLDL [Mass/Vol] 19 mg/dL Normal 5-40 [facility] Comment on above: Performed By: #### L 100.0100, L502.0250, L500.4050, L501.9985, L500.4100 ####[facility] [address] [place], [address] Triglyceride [Mass/Vol] 97 mg/dL Normal [facility] Comment on above: Result Comment: The drugs N-Acetylcysteine and Metamizole may falsely depress this assay. Serum Triglycerides Reference Interval Normal <150 mg/dL Borderline high 150 - 199 mg/dL High 200 - 499 mg/dL Very High > or = 500 mg/dL Performed By: #### L 100.0100, L502.0250, L500.4050, L501.9985, L500.4100 ####[facility] [address] [place], [address] Microalb:Creat Ratio,Random URon 02-27-2024 Creatinine [Mass/Vol] 128.00 mg/dL Normal NO RAN GE EST. [facility] Comment on above: Performed By: #### L 100.0100, L502.0250, L500.4050, L501.9985, L500.4100 ####[facility] [address] [place], [address] MALB:CRE 5.0 mg/g CRE Normal <30 mg/g CRE [facility] Comment on above: Performed By: #### L 100.0100, L502.0250, L500.4050, L501.9985, L500.4100 ####[facility] [address] [place], [address] MICROALBUMIN,UR 6.5 mg/L Normal NO RANGE EST. [facility] Comment on above: Performed By: #### L 100.0100, L502.0250, L500.4050, L501.9985, L500.4100 ####[facility] [address] [place], [address] Absolute lymphocyte countOrd ered By: Miriam Gomez on 02-23-2023 Lymphocytes Auto (Unsp spec) [#/Vol] 0.70 10*3/uL 0.83-4.51 [facility] Basophil percentageOrdered B y: Miriam Gomez on 02-23-2023 Basophils/100 WBC (Bld) 0.3 % 0-1 [facility] Bilirubin [Mass/Vol] 0.50 mg/dL 0.20-1.00 [facility] Comment on above: For patients on eltr ombopag therapy, use of Dimension [place] TBIL is not recommended. Chloride [Moles/Vol] 103 mmol/L 98-107 [facility] Cholesterol [Mass/Vol] 174 mg/dL <200 [facility] Comment on above: <200 mg/dL Desirable 200-240 mg/dL Borderline >240 mg/dL High Risk Eosinophils/100 WBC (Bld) 2.5 % 0-5 [facility] Glucose [Mass/Vol] 141 mg/dL 74-106 [facility] Comment on above: Fasting Glucose resu lt greater than or equal to 126 mg/dL suggests DIABETES MELLITUS per A.D.A. criteria. Neutrophils (Bld) [#/Vol] 4.5 10*3/uL 2.0-7.7 [facility] Neutrophils/100 WBC (Bld) 75.0 % 47-70 [facility] Potassium [Moles/Vol] 3.5 mmol/L 3.5-5.1 [facility] Protein [Mass/Vol] 7.5 g/dL 6.4-8.2 [facility] Sodium [Moles/Vol] 139 mmol/L 136-145 [facility] Triglyceride [Mass/Vol] 133 mg/dL <199 [facility] Comment on above: The drugs N-Acetylcy steine and Metamizole may falsely depress this assay.Serum Triglycerides Reference Interval Normal <150 mg/dL Borderline high 150 - 199 mg/dL High 200 - 499 mg/dL Very High > or = 500 mg/dL WBC (Bld) [#/Vol] 6.0 10*3/uL 4.4-11.0 [facility] Blood erythrocytes count (nu mber/volume)Ordered By: Miriam Gomez on 02-23-2023 RBC (Bld) [#/Vol] 4.37 10*6/uL 4.6-6.2 [facility] Blood hemoglobin measurement (mass/volume)Ordered By: Miriam Gomez on 02-23-2023 Hemoglobin (Bld) [Mass/Vol] 13.3 g/dL 13.0-16.5 [facility] Blood lymphocytes/100 leukoc ytesOrdered By: Miriam Gomez on 02-23-2023 Lymphocytes/100 WBC (Bld) 11.7 % 19-41 [facility] Blood monocytes/100 leukocyt esOrdered By: Miriam Gomez on 02-23-2023 Monocytes/100 WBC (Bld) 10.0 % 0-10 [facility] Blood platelet mean volumeOr dered By: Miriam Gomez on 02-23-2023 Platelet mean volume (Bld) [Entitic vol] 10.8 fL 6.2-12.0 [facility] Determination of erythrocyte mean corpuscular volume (MCV)Ordered By: Miriam Gomez on 02-23-2023 MCV (RBC) [Entitic vol] 92.4 fL 80-94 [facility] Hematocrit Auto (Bld) [Volum e fraction]Ordered By: Miriam Gomez on 02-23-2023 Hematocrit (Bld) [Volume fraction] 40.4 % 40-54 [facility] Laboratory - Chemistry and C hemistry - challengeOrdered By: Miriam Gomez on 02-23-2023 ALP [Catalytic activity/Vol] 72 U/L 45-117 [facility] ALT [Catalytic activity/Vol] 36 U/L 16-61 [facility] CO2 [Moles/Vol] 30.0 mmol/L 21.0-32.0 [facility] Cobalamin (Vitamin B12) [Mass/Vol] 445 pg/mL 211-911 [facility] Free T4 [Mass/Vol] 1.09 ng/dL 0.76-1.46 [facility] Globulin (S) [Mass/Vol] 3.7 g/dL 2.2-4.2 [facility] Urea nitrogen/Creatinine [Mass ratio] 15.7 mg/mg 10- [facility] - Hematology and Cell countsOrdered By: Miriam Gomez on 02-23-2023 Erythrocyte distribution width (RBC) [Entitic vol] 41.1 fL 35.1-43.9 [facility] Erythrocyte distribution width (RBC) [Ratio] 12.2 % 11.6-14.6 [facility] Immature granulocytes/100 WBC (Bld) 0.500 % 0.0-0.9 [facility] Comment on above: IG% - Immature Granu locytes (promyelocytes, myelocytes and metamyelocytes) > 1% indicates that a LEFT SHIFT is Present. MCH (RBC) [Entitic mass] 30.4 pg 27.0-32.0 [facility] Nucleated RBC/100 WBC (Bld) [Ratio] 0 % 0-5 [facility] MCHC Auto (RBC) [Mass/Vol]Or dered By: Miriam Gomez on 02-23-2023 MCHC (RBC) [Mass/Vol] 32.9 g/dL 32-36 [facility] No Panel InformationOrdered By: Miriam Gomez on 02-23-2023 Estimated GFR (MDRD) Amer 77 mL/min >60 [facility] Comment on above: GFR Calc Estimated GFR (MDRD) Non-Af Amer 63 mL/min >60 [facility] Comment on above: Non- GFR Calc Prostate Specific Antigen Screen 2.98 ng/mL 0.00-4.00 [facility] Comment on above: This test was perfor med using the TPSA assay method for theDSTLD chemistry system. Values obtained with differentassay methods cannot be used interchangably.When changing PSA assays in the course of monitoring apatient, additional sequential testing should be carriedout to confirm baseline values. Thyroid Stimulating Hormone (TSH) 1.17 uIU/mL 0.358-3.74 [facility] Urine Microalbumin/Creatinine Ratio 3.8 mg/g CRE <30 [facility] Platelets bldOrdered By: Jaylin Gomez on 02-23-2023 Platelets (Bld) [#/Vol] 268 10*3/uL 150-450 [facility] Serum or plasma albumin shea urement (mass/volume)Ordered By: Miriam Gomez on 02-23-2023 Albumin [Mass/Vol] 3.8 g/dL 3.2-5.0 [facility] Serum or plasma albumin/glob ulin mass ratioOrdered By: Miriam Gomez on 02-23-2023 Albumin/Globulin [Mass ratio] 1.0 {ratio} 0.9-2.4 [facility] Serum or plasma calcium shea urement (mass/volume)Ordered By: Miriam Gomez on 02-23-2023 Calcium [Mass/Vol] 9.4 mg/dL 8.5-10.1 [facility] Serum or plasma cholesterol in HDL measurement (mass/volume)Ordered By: Miriam Gomez on 02-23-2023 Cholesterol in HDL [Mass/Vol] 37 mg/dL >40 [facility] Comment on above: The drugs N-Acetylcy steine and Metamizole may falsely depress this assay. Reference Range HDL <40 mg/dL Low HDL Cholesterol HDL >or= 60 mg/dL High HDL Cholesterol Serum or plasma cholesterol in VLDL measurement (mass/volume)Ordered By: Miriam Gomez on 02-23-2023 Cholesterol in VLDL [Mass/Vol] 27 mg/dL 5-40 [facility] Serum or plasma creatinine m easurement (mass/volume)Ordered By: Miriam Gomze on 02-23-2023 Creatinine [Mass/Vol] 1.21 mg/dL 0.70-1.30 [facility] Comment on above: The validity of the calculated GFR & GFRAA in patients over 70 years has not been determined. Clinical correlation is essential. Serum or plasma low density lipoprotein (LDL) cholesterol measurement (mass/volume)Ordered By: Miriam Gomez on 02-23-2023 Cholesterol in LDL [Mass/Vol] 110 mg/dL 0-130 [facility] Serum or plasma urea nitroge n measurement (mass/volume)Ordered By: Miriam Gomez on 02-23-2023 Urea nitrogen [Mass/Vol] 19 mg/dL 7-18 [facility] Thin prep Papanicolaou smear with manual screeningOrdered By: Miriam Gomez on 02-23-2023 Thin prep Papanicolaou smear with manual screening 17 U/L 15-37 [facility] Thin prep Papanicolaou smear with manual screening 6 5-15 [facility] Thin prep Papanicolaou smear with manual screening 9.7 mg/L NO RANGE EST. [facility] Urine creatinine measurement (mass/volume)Ordered By: Miriam Gomez on 02-23-2023 Creatinine (U) [Mass/Vol] 253.00 mg/dL NO RANGE EST. [facility] Whole blood hemoglobin A1c/t otal hemoglobin ratio (mass fraction)Ordered By: Miriam Gomez on 02-23-2023 HbA1c (Bld) [Mass fraction] 6.7 % 3.8-5.6 [facility] Comment on above: Normal < 5.7 % Predi abetic 5.7 - 6.4 % Diabetic >or= 6.5 % Please note range changes. Absolute lymphocyte counton 02-15-2022 Lymphocytes Auto (Unsp spec) [#/Vol] 0.57 10*3/uL 0.83-4.51 [facility] Work Phone: Basophil percentageon 2021 Basophils/100 WBC (Bld) 1.0 % 0-1 [facility] Work Phone: [phone] Bilirubin [Mass/Vol] 0.60 mg/dL 0.20-1.00 [facility] Work Phone: Comment on above: For patients on eltr ombopag therapy, use of Dimension [place] TBIL is not recommended. Chloride [Moles/Vol] 103 mmol/L 98-107 [facility] Work Phone: Cholesterol [Mass/Vol] 198 mg/dL <200 [facility] Work Phone: Comment on above: <200 mg/dL Desirable 200-240 mg/dL Borderline >240 mg/dL High Risk Eosinophils/100 WBC (Bld) 3.8 % 0-5 [facility] Work Phone: [phone] Glucose [Mass/Vol] 152 mg/dL 74-106 [facility] Work Phone: [phone] Comment on above: Fasting Glucose resu lt greater than or equal to 126 mg/dL suggests DIABETES MELLITUS per A.D.A. criteria. Neutrophils (Bld) [#/Vol] 2.9 10*3/uL 2.0-7.7 [facility] Work Phone: [phone] Neutrophils/100 WBC (Bld) 69.9 % 47-70 [facility] Work Phone: [phone] Potassium [Moles/Vol] 4.3 mmol/L 3.5-5.1 [facility] Work Phone: [phone] Protein [Mass/Vol] 7.6 g/dL 6.4-8.2 [facility] Work Phone: [phone] Sodium [Moles/Vol] 139 mmol/L 136-145 [facility] Work Phone: [phone] Triglyceride [Mass/Vol] 119 mg/dL <199 [facility] Work Phone: [phone] Comment on above: The drugs N-Acetylcy steine and Metamizole may falsely depress this assay.Serum Triglycerides Reference Interval Normal <150 mg/dL Borderline high 150 - 199 mg/dL High 200 - 499 mg/dL Very High > or = 500 mg/dL WBC (Bld) [#/Vol] 4.2 10*3/uL 4.4-11.0 [facility] Work Phone: [phone] Blood erythrocytes count (nu mber/volume)on 02-15-2022 RBC (Bld) [#/Vol] 4.46 10*6/uL 4.6-6.2 [facility] Work Phone: [phone] Blood hemoglobin measurement (mass/volume)on 02-15-2022 Hemoglobin (Bld) [Mass/Vol] 13.6 g/dL 13.0-16.5 [facility] Work Phone: [phone] Blood lymphocytes/100 leukoc yteson 02-15-2022 Lymphocytes/100 WBC (Bld) 13.6 % 19-41 [facility] Work Phone: Blood manual differential co mment interpretation (narrative result)on 02-15-2022 Manual differential comment Toby (Bld) [Interp] See comment [facility] Work Phone: Comment on above: LYMPHOPENIA NOTED Blood monocytes/100 leukocyt eson 02-15-2022 Monocytes/100 WBC (Bld) 11.2 % 0-10 [facility] Work Phone: Blood platelet adequacy dete ction by light microscopyon 02-15-2022 Platelets LM Ql (Bld) ADEQUATE ADEQ [facility] Work Phone: Blood platelet mean volumeon 02-15-2022 Platelet mean volume (Bld) [Entitic vol] 11.1 fL 6.2-12.0 [facility] Work Phone: Determination of erythrocyte mean corpuscular volume (MCV)on 02-15-2022 MCV (RBC) [Entitic vol] 92.8 fL 80-94 [facility] Work Phone: Hematocrit Auto (Bld) [Volum e fraction]on 02-15-2022 Hematocrit (Bld) [Volume fraction] 41.4 % 40-54 [facility] Work Phone: Laboratory - Chemistry and C hemistry - challengeon 02-15-2022 ALP [Catalytic activity/Vol] 60 U/L 45-117 [facility] Work Phone: ALT [Catalytic activity/Vol] 36 U/L 16-61 [facility] Work Phone: CO2 [Moles/Vol] 28.0 mmol/L 21.0-32.0 [facility] Work Phone: Globulin (S) [Mass/Vol] 3.6 g/dL 2.2-4.2 [facility] Work Phone: Urea nitrogen/Creatinine [Mass ratio] 15.2 mg/mg 10-20 [facility] Work Phone: [phone] Laboratory - Hematology and Cell countson 02-15-2022 Erythrocyte distribution width (RBC) [Entitic vol] 41.3 fL 35.1-43.9 [facility] Work Phone: [phone] Erythrocyte distribution width (RBC) [Ratio] 12.1 % 11.6-14.6 [facility] Work Phone: [phone] Immature granulocytes/100 WBC (Bld) 0.500 % 0.0-0.9 [facility] Work Phone: [phone] Comment on above: IG% - Immature Granu locytes (promyelocytes, myelocytes and metamyelocytes) > 1% indicates that a LEFT SHIFT is Present. MCH (RBC) [Entitic mass] 30.5 pg 27.0-32.0 [facility] Work Phone: [phone] Nucleated RBC/100 WBC (Bld) [Ratio] 0 % 0-5 [facility] Work Phone: [phone] MCHC Auto (RBC) [Mass/Vol]on 02-15-2022 MCHC (RBC) [Mass/Vol] 32.9 g/dL 32-36 [facility] Work Phone: [phone] No Panel Informationon 02-15 Estimated GFR (MDRD) Amer 84 mL/min >60 [facility] Work Phone: [phone] Comment on above: GFR Calc Estimated GFR (MDRD) Non-Af Amer 69 mL/min >60 [facility] Work Phone: [phone] Comment on above: Non- GFR Calc Prostate Specific Antigen Screen 3.19 ng/mL 0.00-4.00 [facility] Work Phone: [phone] Comment on above: This test was perfor med using the TPSA assay method for the[facility] chemistry system. Values obtained with differentassay methods cannot be used interchangably.When changing PSA assays in the course of monitoring apatient, additional sequential testing should be carriedout to confirm baseline values. Urine Microalbumin/Creatinine Ratio 3.6 mg/g CRE <30 [facility] Work Phone: Platelets bldon 02-15-2022 Platelets (Bld) [#/Vol] 251 10*3/uL 150-450 [facility] Work Phone: RBC morphologyon 02-15-2022 RBC morphology finding Nom (Bld) NORM C+C NORMAL NORM C&C [facility] Work Phone: Review by pathologiston 02-05 Pathologist review Toby (Unsp spec) [Interp] Reviewed [facility] Work Phone: Comment on above: Previous reported re sult: Karime petit Edited by: RGOOD on 02/16/22:1339 AMENDED REPORT 02/16/225 PATH REV previously reported as: Karime petit Serum or plasma albumin shea urement (mass/volume)on 02-15-2022 Albumin [Mass/Vol] 4.0 g/dL 3.2-5.0 [facility] Work Phone: [phone] Serum or plasma albumin/glob ulin mass ratioon 02-15-2022 Albumin/Globulin [Mass ratio] 1.1 {ratio} 0.9-2.4 [facility] Work Phone: Serum or plasma calcium shea urement (mass/volume)on 02-15-2022 Calcium [Mass/Vol] 9.7 mg/dL 8.5-10.1 [facility] Work Phone: Serum or plasma cholesterol in HDL measurement (mass/volume)on 02-15-2022 Cholesterol in HDL [Mass/Vol] 40 mg/dL >40 [facility] Work Phone: Comment on above: The drugs N-Acetylcy steine and Metamizole may falsely depress this assay. Reference Range HDL <40 mg/dL Low HDL Cholesterol HDL >or= 60 mg/dL High HDL Cholesterol Serum or plasma cholesterol in VLDL measurement (mass/volume)on 02-15-2022 Cholesterol in VLDL [Mass/Vol] 24 mg/dL 5-40 [facility] Work Phone: [phone] Serum or plasma creatinine m easurement (mass/volume)on 02-15-2022 Creatinine [Mass/Vol] 1.12 mg/dL 0.70-1.30 [facility] Work Phone: Comment on above: The validity of the calculated GFR & GFRAA in patients over 70 years has not been determined. Clinical correlation is essential. Serum or plasma low density lipoprotein (LDL) cholesterol measurement (mass/volume)on 02-15-2022 Cholesterol in LDL [Mass/Vol] 134 mg/dL 0-130 [facility] Work Phone: Serum or plasma urea nitroge n measurement (mass/volume)on 02-15-2022 Urea nitrogen [Mass/Vol] 17 mg/dL 7-18 [facility] Work Phone: Thin prep Papanicolaou smear with manual screeningon 02-15-2022 Thin prep Papanicolaou smear with manual screening 16 U/L 15-37 [facility] Work Phone: Thin prep Papanicolaou smear with manual screening 8 5-15 [facility] Work Phone: Thin prep Papanicolaou smear with manual screening 9.4 mg/L NO RANGE EST. [facility] Work Phone: Urine creatinine measurement (mass/volume)on 02-15-2022 Creatinine (U) [Mass/Vol] 257.00 mg/dL NO RANGE EST. [facility] Work Phone: Whole blood hemoglobin A1c/t otal hemoglobin ratio (mass fraction)on 02-15-2022 HbA1c (Bld) [Mass fraction] 6.6 % 3.8-5.6 [facility] Work Phone: Comment on above: Normal < 5.7 % Predi abetic 5.7 - 6.4 % Diabetic >or= 6.5 % Please note range changes. Vital Signs Date Time Vital Sign Value Performing Clinician Veritoi sudhir 02-04-2025 09:00-0400 Body temperature 98.6 [degF] Ronnie Herrera MD Work Phone: [employer] 02-04-2025 09:00-0400 Diastolic blood pressure 83 mm[Hg] Ronnie Herrera MD Work Phone: [employer] 02-04-2025 09:00-0400 Heart rate 76 /min Ronnie Herrera Work Phone: [employer] 02-04-2025 09:00-0400 Respiratory rate 18 /min Ronnie Herrera Work Phone: [employer] 02-04-2025 09:00-0400 SaO2% (BldA) [Mass fraction] 99 % Ronnie Herrera Work Phone: [employer] 02-04-2025 09:00-0400 Systolic blood pressure 134 mm[Hg] Ronnie Herrera MD Work Phone: [employer] 02-04-2025 06:00-0400 Body mass index (BMI) [Ratio] 25.09 kg/m2 Ronnie Herrera MD Work Phone: [employer] 02-04-2025 06:00-0400 Body weight 93.5 kg Ronnie Herrera Work Phone: [employer] 01-30-2025 12:22-0400 Body height 193 cm Ronnie Herrera MD Work Phone: [employer] 01-29-2025 16:03-0400 SaO2% (BldA) [Mass fraction] 99.2 % Ronnie Herrera Work Phone: [employer] 01-14-2025 08:02-0400 Diastolic blood pressure 77 mm[Hg] Ronnie Herrera Work Phone: [employer] 01-14-2025 08:02-0400 Heart rate 67 /min Ronnie Herrera Work Phone: [employer] 01-14-2025 08:02-0400 Systolic blood pressure 142 mm[Hg] Ronnie Herrera Work Phone: [employer] 01-14-2025 07:59-0400 Body height 193 cm Ronnie Herrera Work Phone: [employer] 01-14-2025 07:59-0400 Body mass index (BMI) [Ratio] 24.59 kg/m2 Ronnie Herrera Work Phone: [facility] 01-14-2025 07:59-0400 Body weight 91.63 kg Ronnie Herrera MD Work Phone: [facility] 12-25-2024 07:14-0400 Body height 193.[address] Miriam Gomez DO Work Phone: [facility] 12-25-2024 07:14-0400 Body weight 91.[address] Miriam Gomez DO Work Phone: [facility] 12-24-2024 07:58-0400 Body mass index (BMI) [Ratio] 24.5 kg/m2 Dr. Miriam Gomez DO Work Phone: [facility] 12-11-2024 08:01-0400 Body height 193.[address] Miriam Gomez DO Work Phone: [facility] 12-11-2024 08:01-0400 Body mass index (BMI) [Ratio] 24.5 kg/m2 Dr. Miriam Gomez DO Work Phone: [facility] 12-11-2024 08:01-0400 Body weight 91.[address] Miriam Gomez DO Work Phone: [facility] 12-11-2024 08:01-0400 Diastolic blood pressure 72 mm[Hg] Dr. Miriam Gomez DO Work Phone: [facility] 12-11-2024 08:01-0400 Heart rate 77 /min Dr. Miriam Gomez DO Work Phone: [facility] 12-11-2024 08:01-0400 Respiratory rate 18 /min Dr. Miriam Gomez DO Work Phone: [facility] 12-11-2024 08:01-0400 Systolic blood pressure 127 mm[Hg] Dr. Miriam Gomez DO Work Phone: [facility] Encounters Encounter Date Encounter Type Care Provider Facility Start: 02-24-2025 ambulatory Miriam Gomez Facility: [facility] Start: 01-29-2025 End: 01-29-2025 Evaluation and management of inpatient Elías Diaz DO Work Phone: [facility] Start: 01-29-2025 End: 02-04-2025 Evaluation and management of inpatient [facility] Start: 01-23-2025 End: 01-23-[address] Miriam Gomez DO Work Phone: -Cardiovascular Services Start: 01-23-2025 End: 01-23-[address] Ronnie Herrera MD -Cardiovascular Services Work Phone: Start: 01-23-2025 End: 01-23-2025 ambulatory Radha PASCAL Facility:[facility] Start: 01-20-2025 End: 01-20-2025 ambulatory [facility] Start: 01-16-2025 End: 01-25-2025 Telephone encounter Ronnie Herrera MD Work Phone: [facility] Central Scheduling Start: 01-16-2025 Non-patient / Non-visit Dr. Stone Williamson MD -[facility] Start: 01-16-2025 End: 01-16-[address] Miriam Gomez DO Work Phone: -Cardiovascular Services Start: 01-16-2025 End: 01-16-[address] Ronnie Herrera MD -Cardiovascular Services Work Phone: Start: 01-16-2025 End: 01-16-2025 ambulatory Ronnie Herrera Facility:[facility] Start: 01-14-2025 End: 01-14-2025 Admission to same day surgery center Angela Garcia CNP Work Phone: [facility] Cardiovascular Thoracic Surgery - [place] Comment on above: CAD in [place] artery (Primary Dx); Coronary artery disease due to calcified coronary lesion Start: 01-14-2025 End: 01-14-2025 Telephone encounter Ronnie Herrera MD Work Phone: [facility] [place] Comment on above: Surgery Scheduling Start: 01-14-2025 End: 01-14-2025 Office outpatient new 60 minutes Ronnie Herrera MD Work Phone: [facility] [place] Comment on above: Coronary artery dise ase due to calcified coronary lesion (Primary Dx); Type 2 diabetes mellitus with other circulatory complication, with long-term current use of insulin (HCC) Start: 01-14-2025 End: 01-14-2025 ambulatory Angela Albertina Mandel APRN - ELECTRICAL ENGINEERING PROFESSOR Work Phone: [facility] [place] Start: 12-25-2024 Non-patient / Non-visit Dr. Stone Williamson MD -[facility] Start: 12-25-[address] Miriam garces DO Work Phone: -[facility] Start: 12-25-2024 End: 12-25-2024 Admission to same day surgery center Dr. Stone Williamson MD -Business Services Administrator/Special Procedures Work Phone: Start: 12-25-2024 End: 12-25-[address] Miriam Gomez DO Work Phone: -Business Services Administrator/Special Procedures Start: 12-11-2024 End: 12-11-[address] Miriam Gomez DO Work Phone: -Radiology [facility] Start: 12-11-2024 End: 12-11-2024 Patient encounter procedure Radha PASCAL -Radiology [facility] Work Phone: Start: 12-11-2024 End: 12-11-2024 Patient encounter procedure Radha PASCAL -[facility] Work Phone: Start: 12-11-2024 End: 12-11-[address] Miriam Gomez DO Work Phone: -[facility] Start: 12-11-2024 End: 12-11-2024 ambulatory Miriam Gomez Facility:[facility] Start: 12-05-2024 ambulatory Miriam Gomez Facility: [facility] Start: 12-05-2024 Non-patient / Non-visit Dr. Stone Williamson MD -[facility] Start: 12-05-2024 End: 12-05-[address] Miriam Gomez DO Work Phone: -Cardiovascular Services Start: 12-05-2024 End: 12-05-[address] Miriam Gomez DO -Cardiovascular Services Work Phone: Start: 12-05-2024 End: 12-05-2024 ambulatory Miriam [facility] Facility:[facility] Start: 02-27-2024 End: 02-27-2024 ambulatory [facility] Facility:[facility] Start: 02-23-2023 End: 02-23-2023 ambulatory [facility] Work Phone: Start: 02-23-2023 End: 02-23-2023 Patient encounter procedure [facility] Start: 02-15-2022 End: 02-15-2022 ambulatory [facility] Work Phone: Start: 02-15-2022 End: 02-15-2022 Patient encounter procedure [facility], [facility] Procedures Date Procedure Procedure Detail Performing Clinician Start: 02-04-2025 Glucose quantitative blood xcpt reagent strip Ronnie Herrera MD Work Phone: Start: 02-04-2025 End: 02-04-2025 Basic metabolic panel calcium total Nura Garcia CNP Work Phone: Start: 02-04-2025 Radiologic exam ches t single view Nura Garcia CNP Work Phone: Start: 02-03-2025 Glucose quantitative blood xcpt reagent strip Ronnie Herrera MD Work Phone: Start: 02-03-2025 Glucose quantitative blood xcpt reagent strip Ronnie Herrera MD Work Phone: Start: 02-03-2025 Glucose quantitative blood xcpt reagent strip Ronnie Herrera MD Work Phone: Start: 02-03-2025 Radiologic exam ches t single view Nura Kori ANTUNEZ - ELECTRICAL ENGINEERING PROFESSOR Work Phone: Start: 02-03-2025 Basic metabolic pane l calcium total Nura Sheikh OUTDOOR FITNESS TRAINER - ELECTRICAL ENGINEERING PROFESSOR Work Phone: Start: 02-02-2025 Glucose quantitative blood xcpt reagent strip Ronnie Herrera MD Work Phone: Start: 02-02-2025 Glucose quantitative blood xcpt reagent strip Ronnie Herrera MD Work Phone: Start: 02-02-2025 Basic metabolic pane l calcium total James Ho OUTDOOR FITNESS TRAINER - ELECTRICAL ENGINEERING PROFESSOR Work Phone: Start: 02-02-2025 Glucose quantitative blood xcpt reagent strip Ronnie Herrera MD Work Phone: Start: 02-02-2025 Basic metabolic pane l calcium total Nuratavo Sheikh APRN - ELECTRICAL ENGINEERING PROFESSOR Work Phone: Start: 02-02-2025 Radiologic exam ches t single view Nuratavo Sheikh APRN - ELECTRICAL ENGINEERING PROFESSOR Work Phone: Start: 02-02-2025 Compatibility each u nit electronic Ronnie Herrera MD Work Phone: Start: 02-01-2025 Glucose quantitative blood xcpt reagent strip Ronnie Herrera MD Work Phone: Start: 02-01-2025 End: 02-01-2025 Basic metabolic panel calcium total James Ho OUTDOOR FITNESS TRAINER - ELECTRICAL ENGINEERING PROFESSOR Work Phone: Start: 02-01-2025 Glucose quantitative blood xcpt reagent strip Ronnie Hererra MD Work Phone: Start: 02-01-2025 Radiologic exam ches t single view Nura Sheikh APRN - ELECTRICAL ENGINEERING PROFESSOR Work Phone: Start: 02-01-2025 Basic metabolic pane l calcium total Nura Sheikh APRN - ELECTRICAL ENGINEERING PROFESSOR Work Phone: Start: 01-31-2025 Glucose quantitative blood xcpt reagent strip Ronnie Herrera MD Work Phone: Start: 01-31-2025 Glucose quantitative blood xcpt reagent strip Ronnie Herrera MD Work Phone: Start: 01-31-2025 Glucose quantitative blood xcpt reagent strip Ronnie Herrera MD Work Phone: Start: 01-31-2025 End: 01-31-2025 Glucose quantitative blood xcpt reagent strip Ronnie Herrera MD Work Phone: Start: 01-31-2025 Glucose quantitative blood xcpt reagent strip Ronnie Herrera MD Work Phone: Start: 01-31-2025 Ecg routine ecg w/le ast 12 lds trcg only w/o i&r Angela Mandel OUTDOOR FITNESS TRAINER - ELECTRICAL ENGINEERING PROFESSOR Work Phone: Start: 01-31-2025 Glucose quantitative blood xcpt reagent strip Ronnie Herrera MD Work Phone: Start: 01-31-2025 Radiologic exam ches t single view Nura Sheikh APRN - ELECTRICAL ENGINEERING PROFESSOR Work Phone: Start: 01-31-2025 Ecg routine ecg w/le ast 12 lds trcg only w/o i&r Nura Sheikh APRN - ELECTRICAL ENGINEERING PROFESSOR Work Phone: Start: 01-31-2025 End: 01-31-2025 Basic metabolic panel calcium total Nura Sheikh APRN - ELECTRICAL ENGINEERING PROFESSOR Work Phone: Start: 01-31-2025 Glucose quantitative blood xcpt reagent strip Ronnie Herrera MD Work Phone: Start: 01-30-2025 End: 01-31-2025 Glucose quantitative blood xcpt reagent strip Ronnie Herrera MD Work Phone: Start: 01-30-2025 End: 01-30-2025 Glucose quantitative blood xcpt reagent strip Ronnie Herrera MD Work Phone: Start: 01-30-2025 Glucose quantitative blood xcpt reagent strip Ronnie Herrera MD Work Phone: Start: 01-30-2025 End: 01-30-2025 Glucose quantitative blood xcpt reagent strip Ronnie Herrera MD Work Phone: Start: 01-30-2025 Glucose quantitative blood xcpt reagent strip Ronnie Herrera MD Work Phone: Start: 01-30-2025 Glucose quantitative blood xcpt reagent strip Ronnie Herrera MD Work Phone: Start: 01-30-2025 End: 01-30-2025 Hemoglobin glycosylated a1c Khushi E Curly fowler OUTDOOR FITNESS TRAINER - [facility] Work Phone: Start: 01-30-2025 End: 01-30-2025 Glucose quantitative blood xcpt reagent strip Ronnie Herrera MD Work Phone: Start: 01-30-2025 End: 01-30-2025 Glucose quantitative blood xcpt reagent strip Ronnie Herrera MD Work Phone: Start: 01-30-2025 End: 01-30-2025 Glucose quantitative blood xcpt reagent strip Ronnie Herrera MD Work Phone: Start: 01-30-2025 Glucose quantitative blood xcpt reagent strip Ronnie Herrera MD Work Phone: Start: 01-30-2025 Ecg routine ecg w/le ast 12 lds trcg only w/o i&r Nura Sheikh OUTDOOR FITNESS TRAINER - [facility] Work Phone: Start: 01-30-2025 Glucose quantitative blood xcpt reagent strip Ronnie Herrera MD Work Phone: Start: 01-30-2025 End: 01-30-2025 Glucose quantitative blood xcpt reagent strip Ronnie Herrera MD Work Phone: Start: 01-30-2025 Radiologic exam ches t single view Nura Sheikh OUTDOOR FITNESS TRAINER - [facility] Work Phone: Start: 01-30-2025 End: 01-30-2025 Glucose quantitative blood xcpt reagent strip Ronnie Herrera MD Work Phone: Start: 01-30-2025 Glucose quantitative blood xcpt reagent strip Ronnie Herrera MD Work Phone: Start: 01-30-2025 End: 01-30-2025 Basic metabolic panel calcium total Nura Garcia ELECTRICAL ENGINEERING PROFESSOR Work Phone: Start: 01-29-2025 Glucose quantitative blood xcpt reagent strip Ronnie Herrera MD Work Phone: Start: 01-29-2025 End: 01-29-2025 Glucose quantitative blood xcpt reagent strip Ronnie Herrera MD Work Phone: Start: 01-29-2025 Radiologic exam ches t single view Sunny Youssef DO Work Phone: Start: 01-29-2025 End: 01-29-2025 Basic metabolic panel calcium total Angela Mandel APRN - ELECTRICAL ENGINEERING PROFESSOR Work Phone: Start: 01-29-2025 Radiologic exam ches t single view Nura Sheikh APRN - ELECTRICAL ENGINEERING PROFESSOR Work Phone: Start: 01-29-2025 Ecg routine ecg w/le ast 12 lds trcg only w/o i&r Nura Sheikh APRN - ELECTRICAL ENGINEERING PROFESSOR Work Phone: Start: 01-29-2025 Blood gases any comb ination ph pco2 po2 co2 hco3 Ronnie Herrera MD Work Phone: Start: 01-29-2025 End: 01-29-2025 Comprehensive metabolic panel Ronnie Herrera MD Work Phone: Start: 01-29-2025 Echo transesophag r- t 2d w/prb img acquisj i&r Angela Mandel OUTDOOR FITNESS TRAINER - ELECTRICAL ENGINEERING PROFESSOR Work Phone: Start: 01-29-2025 ANESTHESIA CENTRAL V ENOUS LINE PLACEMENT Hay Mahajan APRN - CVT RN Work Phone: Start: 01-29-2025 ANESTHESIA INTUBATION Kati Mahajan APRN - CVT RN Work Phone: Start: 01-29-2025 Artl cathj/cannulj mntr/transfusion spx prq Hay Mahajan APRN - CVT RN Work Phone: Start: 01-29-2025 End: 01-29-2025 Cabg w/arterial graft three arterial grafts Ronnie Herrera MD Work Phone: Start: 01-29-2025 End: 01-29-2025 Echo transesophag r-t 2d w/prb img acquisj i&r Ronnie Herrera MD Work Phone: Start: 01-29-2025 Antibody screen RONNIE KANG Comment on above: Performed By: #### L [id number], LAB15 #### [place] Mason: HIPOLITO WOODS ([id number]) [facility] ([address] Start: 01-29-2025 ABO and Rh group [Ty pe] in Blood by Confirmatory method Nura Sheikh OUTDOOR FITNESS TRAINER - ELECTRICAL ENGINEERING PROFESSOR Work Phone: Start: 01-29-2025 Blood typing serologic abo Nura Sheihk APRN - ELECTRICAL ENGINEERING PROFESSOR Work Phone: Start: 01-29-2025 End: 01-29-2025 Comprehensive metabolic panel Nura Sheikh OUTDOOR FITNESS TRAINER - ELECTRICAL ENGINEERING PROFESSOR Work Phone: Start: 12-11-2024 X-ray of chest, PA a nd lateral views Dr. Miriam Gomez DO Work Phone: Plan of Treatment Date Care Activity Detail Author Start: 02-04-2026 [facility] Start: 01-30-2026 Diabetes: Estimated Glomerular Filtration Rate for Kidney Health Diabetes: Estimated Glomerular Filtration Rate for Kidney Health [facility] Start: 01-30-2026 Hemoglobin A1c measurement [facility] Start: 02-13-2025 End: 02-13-2025 ambulatory [facility] Cardiovascular Thoracic Surgery [facility] Start: 01-29-2025 End: 01-29-2025 Admission to same day surgery center 01/29/2025 12:00 PM EDT - 01/29/2025 5:00 PM EDT Surgery [facility] [address] [place] [id number] Ronnie Herrera MD [address] [place] [id number] CORONARY ARTERY BYPASS GRAFT [[id number] (CPT )] [facility] Comment on above: CORONARY ARTERY BYPASS GRAFT [63068 (CPT )] Start: 01-29-2025 End: 01-29-2025 Anesthesia consultation 01/29/2025 12:00 PM EDT Anesthesia Event [facility] [address] [place] [address] Gurdeep Guillen MD [address], [place] [id number] Chloe Miller, OUTDOOR FITNESS TRAINER - ELECTRICAL ENGINEERING PROFESSOR [address] [place], [place] [phone] [facility] Start: 01-29-2025 End: 01-29-2025 Cabg w/arterial graft three arterial grafts CORONARY ARTERY BYPASS GRAFT Atherosclerotic heart disease of [place] coronary artery with other forms of angina pectoris (HCC) 01/29/2025 12:00 PM EDT [facility] Start: 01-29-2025 End: 01-29-2025 Echo transesophag r-t 2d w/prb img acquisj i&r ECHOCARDIOGRAM, TRANSESOPHAGEAL Atherosclerotic heart disease of [place] coronary artery with other forms of angina pectoris (HCC) 01/29/2025 12:00 PM EDT [facility] Start: 01-29-2025 Subsequent hospital visit by physician 01/29/2025 12:00 PM EDT Hospital Encounter [facility] [address] [place] [address] Ronnie Herrera MD [address] [address] [facility] Start: 01-27-2025 End: 01-27-2025 Admission to same day surgery center 01/27/2025 7:30 AM EDT - 01/27/2025 12:30 PM EDT Surgery [facility] [address] [place] [id number] Ronnie Herrera MD [address] [id number] CORONARY ARTERY BYPASS GRAFT [[id number] (CPT )] [facility] Comment on above: CORONARY ARTERY BYPASS GRAFT [[id number] (CPT )] Start: 01-27-2025 End: 01-27-2025 Cabg w/arterial graft three arterial grafts CORONARY ARTERY BYPASS GRAFT Atherosclerotic heart disease of [place] coronary artery with other forms of angina pectoris (HCC) 01/27/2025 7:30 AM EDT [facility] Operating Room Start: 01-27-2025 End: 01-27-2025 Echo transesophag r-t 2d w/prb img acquisj i&r ECHOCARDIOGRAM, TRANSESOPHAGEAL Atherosclerotic heart disease of [place] coronary artery with other forms of angina pectoris (HCC) 01/27/2025 7:30 AM EDT [facility] Operating Room Start: 01-27-2025 Subsequent hospital visit by physician 01/27/2025 7:30 AM EDT Hospital Encounter [facility] [place] [place] [address] [place] [id number] Ronnie Herrera MD [address] [place] [id number] [facility] Start: 01-20-2025 End: 01-20-2025 Admission to establishment 01/20/2025 10:00 AM EDT Pre-Admission Testing [facility] Pre-Admit Testing [address] [place] [address] Ronnie Herrera MD [address] [address] [facility] Pre-Admit Testing Start: 01-06-2025 COVID-19 Vaccine ( season) COVID-19 Vaccine ( season) [facility] Start: 01-06-2025 Influenza vaccination Influenza Vaccine (#1) [facility] Start: 01-06-2025 [facility] Start: 12-25-2024 Patient discharge [facility] Start: 2014 RSV Immunization for Adults (1 - Risk 60-74 years 1-dose series) RSV Immunization for Adults (1 - Risk 60-74 years 1-dose series) [facility] Start: 2014 [facility] Start: 2004 Zoster Vaccines (1 of 2) Zoster Vaccines (1 of 2) [facility] Start: 2004 [facility] Start: 1973 DTaP/Tdap/Td Vaccines (1 - Tdap) DTaP/Tdap/Td Vaccines (1 - Tdap) [facility] Start: 1973 [facility] Start: 1972 Diabetes: Estimated Glomerular Filtration Rate for Kidney Health Diabetes: Estimated Glomerular Filtration Rate for Kidney Health [facility] Start: 1972 Diabetes: Urine Albumin-Creatinine Ratio for Kidney Health Diabetes: Urine Albumin-Creatinine Ratio for Kidney Health [facility] Start: 1972 Hepatitis C screening [facility] Start: 1972 [facility] Start: 1966 Depression Screening Depression Screening [facility] Start: 1966 [facility] Start: 1964 Diabetic foot examination [facility] Start: 1964 Glaucoma screening [facility] Start: 1964 Preventive dental service [facility] Start: 1954 Hemoglobin A1c measurement Diabetes: Hemoglobin A1C [facility] Start: 1954 Lipid panel [facility] Start: 1954 Medicare Annual Wellness (AWV) Medicare Annual Wellness (AWV) [facility] Start: 1954 Screening for malignant neoplasm of colon [facility] Start: 1954 Thyroid stimulating hormone measurement [facility] Start: 1954 [facility] Basic metabolic 2008 panel with ionized calcium - Serum or Plasma [facility] CBC W Auto Differential panel - Blood [facility] End: 01-29-2025 Prothrombin time (PT) in Blood by Coagulation assay [facility] System Work Phone: [place] Carotid arteries [facility] XR Chest PA and Lateral [facility] Immunizations Immunization Date Immunization Notes Care Provider Fa cility 01-11-2024 influenza virus vacc ine, unspecified formulation Ronnie Herrera MD Work Phone: [facility] Payers Date Payer Category Payer Medicare supplementa l policy (as second payer) [id number] 2024 Self-pay [id number] Unknown [id number] 2019 Medicare [id number] 2019 Medicare [id number] 2015 Unknown [id number] Unknown [id number] Unknown [id number] Unknown [id number] Unknown [id number] Unknown [id number] Unknown [id number] Unknown [id number] Unknown [id number] Unknown [id number] Unknown [id number] Unknown [id number] Social History Date Type Detail Facility Start: 11-15-2020 Tobacco smoking stat [facility] Unknown if ever smoked [facility] Start: 1955 Sex Assigned At Male [facility] Start: 11-15-2020 End: 12-25-2024 Tobacco smoking status NHIS Never smoked tobacco (finding) [facility] Start: 01-14-2025 Tobacco use and exposure Smokeless tobacco non-user [facility] Start: 01-14-2025 End: 01-29-2025 Alcoholic beverage intake Lifetime non-drinker (finding) [facility] Start: 01-14-2025 End: 01-29-2025 History of Social function [facility] Start: 01-14-2025 End: 01-29-2025 Tobacco use panel [facility] Start: 1955 Sex assigned at Not on file [facility] Start: 12-06-2021 Sex Male (finding) [facility] Start: 01-29-2025 Gender identity Identifies as male gender (finding) [facility] Start: 01-29-2025 Sexual orientation Heterosexual (fin ding) [facility] Clinical Notes 12-11-2024 to 02-04-2025 Fam Dorsey, OT - 02/04/2025 9:35 AM EDTCaroseth Rothman, OUTDOOR FITNESS TRAINER - ELECTRICAL ENGINEERING PROFESSOR - 02/04/2025 9:04 AM EDTFam Dorsey, OT - 02/03/2025 2:14 PM Melva Ortiz, OPERATIONS INSPECTOR - 02/03/2025 2:00 PM EDTAttachments Note Date & Type Note Facility 02-04-2025 Note OCCUPATIONAL THERAPY [facility] Initial Evaluation Name/MRN: Ryan Macedo ([id number]) Evaluation Date: 02/04/2025 Date of : 1955 Admission Date: 01/29/2025 9:13 AM Age: 69 y.o. Room/Bed: T1-121/T1-121 A Discharge Recommendation: Home with assist PRN, Home with Home health OT Equipment Needed: No Assessment IMPRESSION: Pt presented with CAD in [place] artery upon admission, S/p CABG x 3 on 01/29/25. Per pt, he is independent at baseline for ADL's and functional ambulation w/o device, currently presenting slightly below baseline. Pt recalls sternal precautions at beginning of session. Pt is currently SBA for transfers and CGA-SBA for functional ambulation w/o device to/from bathroom and short distance in hallway. No overt LOB but pt noted to be slightly unsteady. Pt also noted to be slightly SOB at end of session. Pt is also CGA-supervision for ADL's. Educated pt on adaptive equipment such as sock aid and geothermal heat pump machinist for energy conversation. Recommending home with assist as needed, is able to provide and home health OT to address slight functional deficits. Pt will continue to benefit from acute OT services while admitted to increase functional independence. Admitting Diagnosis: CAD in [place] artery, S/p CABG x 3 on 01/29/25. Performance Deficits /Impairments: Decreased Functional Mobility, Decreased ADL status, Decreased Endurance, Decreased Balance, and Decreased High Level IADLs Prognosis: Good Decision Making: Low Complexity Subjective RN cleared for therapy. Pt sitting in recliner upon OT arrival; agreeable to OT eval. Pt sitting in recliner at end of session with call light within reach and RN notified. Pain: Pt denies any current pain. Past Medical History: Medical History[1] Past Surgical History: Surgical History[2] Admission Diagnosis: Patient Active Problem List Diagnosis Date Noted CAD in [place] artery 01/29/2025 Medical Precautions: No active isolations Proper PPE donned/doffed in accordance with facility standards. Fall Risk: Staley Fall Risk Score: 35 (Medium Risk) Precautions/Restrictions: Sternal Precautions: No lifting greater than 10 lbs. Ok for modified UE precautions using Keep Your Move in the Tube technique Family/Caregiver Present: none Overall Cognitive Status: WFL Overall Orientation Status: Oriented x4 Social/Functional History Patient admitted from home. Lives With: Spouse Type of Home: single family home Home Layout: Two Level Home and Able to Live on Main Level (sleeps in a recliner on the first floor at baseline and has a full bath downstairs) Home Access: a few steps Bathroom Shower/Tub: both tub and walk in, shower chair Toilet: Standard, grab bars Home Equipment: none Homemaking Responsibilities: Independent Receives Help From: None Active District Home Economics Agent: Yes Prior Level of Function Prior Level of ADL Function: Independent Prior Level of Mobility: Independent; Device: None Prior Level of Transfers: Independent Objective ADLs LE Dressing: SBA, Pt demonstrates being able to reach B feet sitting in recliner in figure four position. Upper Extremity Assessment AROM: Limited by sternal precautions, B shoulder flexion able to maintain 90 degrees, distally WFL. PROM: Not assessed this session Strength: Limited by sternal precautions, animal assisted therapist strength grossly 4+/5 Bed Mobility Pt up in chair upon arrival Transfers/Mobility Sit to stand: SBA Stand to sit: SBA Toilet: SBA Sitting balance: Supervision Standing balance: SBA, Contact Guard Functional mobility: SBA, Contact Guard Pt is currently SBA for transfers and CGA-SBA for functional ambulation w/o device to/from bathroom and short distance in hallway. No overt LOB but pt noted to be slightly unsteady. Pt also noted to be slightly SOB at end of session. Device(s) used: None AM-PAC AM-PAC Inpatient Daily Activity Raw Score: 20 ADL Inpatient CMS G-Code Modifier: CJ Plan Pt would benefit from skilled acute OT services to address Strengthening, Balance Training, Self-Care/ADL Training, Functional Mobility Training, Endurance Training, Safety Education and Training, and Equipment Evaluation/Education Frequency: 4x/week for 4 weeks Barriers: Impaired balance, Lower extremity weakness, Decreased endurance, and New weightbearing/ROM restrictions Safety/Education Safety Safety Devices in place: call light within reach, left in chair, nurse notified, and no alarms engaged upon entry Restraints: No Education Education Given To: patient Education Provided: OT Role, Plan of Care, Precautions, Transfer Training, Equipment, and Discharge Recommendations Education Method: Verbal Barriers to Learning: None Education Outcome: Verbalized Understanding and Continued Education Needed Goals Patient Stated Goal: To go home. Encounter Problems Encounter Problems (Active) Balance Patient will maintain dynamic standing balance for 10 (more content not included)... [facility] 02-04-2025 History of Presen t illness Narrative Images from the original note were not included. OCCUPATIONAL THERAPY [facility] Initial Evaluation Name/MRN: Ryan Macedo ([id number]) Evaluation Date: 02/04/2025 Date of : 1955 Admission Date: 01/29/2025 9:13 AM Age: 69 y.o. Room/Bed: T1-121/T1-121 A Discharge Recommendation: Home with assist PRN, Home with Home health OT Equipment Needed: No Assessment IMPRESSION: Pt presented with CAD in [place] artery upon admission, S/p CABG x 3 on 01/29/25. Per pt, he is independent at baseline for ADL's and functional ambulation w/o device, currently presenting slightly below baseline. Pt recalls sternal precautions at beginning of session. Pt is currently SBA for transfers and CGA-SBA for functional ambulation w/o device to/from bathroom and short distance in hallway. No overt LOB but pt noted to be slightly unsteady. Pt also noted to be slightly SOB at end of session. Pt is also CGA-supervision for ADL's. Educated pt on adaptive equipment such as sock aid and geothermal heat pump machinist for energy conversation. Recommending home with assist as needed, is able to provide and home health OT to address slight functional deficits. Pt will continue to benefit from acute OT services while admitted to increase functional independence. Admitting Diagnosis: CAD in [place] artery, S/p CABG x 3 on 01/29/25. Performance Deficits /Impairments: Decreased Functional Mobility, Decreased ADL status, Decreased Endurance, Decreased Balance, and Decreased High Level IADLs Prognosis: Good Decision Making: Low Complexity Subjective RN cleared for therapy. Pt sitting in recliner upon OT arrival; agreeable to OT eval. Pt sitting in recliner at end of session with call light within reach and RN notified. Pain: Pt denies any current pain. Past Medical History: Medical History[1] Past Surgical History: Surgical History[2] Admission Diagnosis: Patient Active Problem List Diagnosis Date Noted CAD in [place] artery 01/29/2025 Medical Precautions: No active isolations Proper PPE donned/doffed in accordance with facility standards. Fall Risk: Staley Fall Risk Score: 35 (Medium Risk) Precautions/Restrictions: Sternal Precautions: No lifting greater than 10 lbs. Ok for modified UE precautions using Keep Your Move in the Tube technique Family/Caregiver Present: none Overall Cognitive Status: WFL Overall Orientation Status: Oriented x4 Social/Functional History Patient admitted from home. Lives With: Spouse Type of Home: single family home Home Layout: Two Level Home and Able to Live on Main Level (sleeps in a recliner on the first floor at baseline and has a full bath downstairs) Home Access: a few steps Bathroom Shower/Tub: both tub and walk in, shower chair Toilet: Standard, grab bars Home Equipment: none Homemaking Responsibilities: Independent Receives Help From: None Active District Home Economics Agent: Yes Prior Level of Function Prior Level of ADL Function: Independent Prior Level of Mobility: Independent; Device: None Prior Level of Transfers: Independent Objective ADLs LE Dressing: SBA, Pt demonstrates being able to reach B feet sitting in recliner in figure four position. Upper Extremity Assessment AROM: Limited by sternal precautions, B shoulder flexion able to maintain 90 degrees, distally WFL. PROM: Not assessed this session Strength: Limited by sternal precautions, animal assisted therapist strength grossly 4+/5 Bed Mobility Pt up in chair upon arrival Transfers/Mobility Sit to stand: SBA Stand to sit: SBA Toilet: SBA Sitting balance: Supervision Standing balance: SBA, Contact Guard Functional mobility: SBA, Contact Guard Pt is currently SBA for transfers and CGA-SBA for functional ambulation w/o device to/from bathroom and short distance in hallway. No overt LOB but pt noted to be slightly unsteady. Pt also noted to be slightly SOB at end of session. Device(s) used: None AM-PAC AM-PAC Inpatient Daily Activity Raw Score: 20 ADL Inpatient CMS G-Code Modifier: CJ Plan Pt would benefit from skilled acute OT services to address Strengthening, Balance Training, Self-Care/ADL Training, Functional Mobility Training, Endurance Training, Safety Education and Training, and Equipment Evaluation/Education Frequency: 4x/week for 4 weeks Barriers: Impaired balance, Lower extremity weakness, Decreased endurance, and New weightbearing/ROM restrictions Safety/Education Safety Safety Devices in place: call light within reach, left in chair, nurse notified, and no alarms engaged upon entry Restraints: No Education Education Given To: patient Education Provided: OT Role, Plan of Care, Precautions, Transfer Training, Equipment, and Discharge Recommendations Education Method: Verbal Barriers to Learning: None Education Outcome: Verbalized Understanding and Continued Education Needed Goals Patient Stated Goal: To go home. Encounter Problems Encounter Problems (Active) Balance Patient will maintain dynamic standing balance for 10+ minutes with independence in order to demonstrate decreased risk of falling. Start: 02/04/25 Expected End: 03/04/25 Dressings Lower Extremities Patient will dress lower body with Mod I Start: 02/04/25 Expected End: 03/04/25 Grooming Patient will complete daily grooming tasks with Mod I Start: 02/04/25 Expected End: 03/04/25 Instrumental Activities of Daily Living Patient will verbalize use of energy conservation techniques to increase functional independence Start: 02/04/25 Expected End: 03/04/25 Mobility Patient will demonstrate functional ambulation with independence Start: 02/04/25 Expected End: 03/04/25 Safety Patient will recall/demonstrate sternal precautions with all functional mobility in order to promote healing and safety with functional tasks. Start: 02/04/25 Expected End: 03/04/25 Toileting Patient will complete toileting tasks at standard toilet with independence. Start: 02/04/25 Expected End: 03/04/25 Transfers Patient will complete functional transfer with no assistive device with independence in order to prepare for ambulation. Start: 02/04/25 Expected End: 03/04/25 Patient will perform bed mobility with modified independence in order to improve independence and prepare for out of bed mobility. Start: 02/04/25 Expected End: 03/04/25 Therapy Time Individual Co-Treatment Co-Evaluation Time In 900 Time Out 09 Minutes 8 Fam Dorsey OT Patient's Occupational Therapy Plan of Care supervision is transferred to a [facility] Therapy Services Occupational Therapist. Goals and/or treatment plan was established in collaboration with patient/family/other representatives. [1] Past Medical History: Diagnosis Date Diabetes mellitus (HCC) GERD (gastroesophageal reflux disease) Gout History of kidney stones Hyperlipidemia Hypertension Lumbar stenosis Osteoarthritis PONV (postoperative nausea and vomiting) [2] Past Surgical History: Procedure Laterality Date BACK SURGERY lumbar KNEE SURGERY Right arthroscopy for meniscus tear ROTATOR CUFF REPAIR Left Department of Internal Medicine Division of Endocrinology, Diabetes, & Metabolism Endocrinology Note Patient Name: Ryan Macedo : 1955 AGE: 69 y.o. Room/Bed: T1-121/T1-121 A Admission Date: 01/29/2025 Visit Date: 02/04/2025 Reason for Endocrine Consult: post heart Provider/Team Requesting Consult: cts PCP: MIRIAM GOMEZ Outpt Travel Assistant: No ASSESSMENT: Stress hyperglycemia DM2 with hyperglycemia without exterminator termite insulin CABGx3 Htn/hld/cad PLAN: -Blood sugar variable - Continue lantus 22 daily - Keep Humalog to moderate sliding scale meals - Keep Humalog /10 units tid meals No insulin on discharge ICU goal <180 GMF goal <150 POCT BG [facility] Hypoglycemia management per protocol Carb controlled diet ANTICIPATED ENDOCRINE HOME GOING RECOMMENDATIONS: Optimized for Discharge from Endocrine standpoint: Yes Home Going Endocrine Rx Recommendations-- Continue Home regimen glimepiride, metformin, Ozempic (Discussed with patient to discuss with his PCP outpatient to stop his glimepiride, and increase Ozempic to 2 mg) Outpatient consider SGLT2 possibly Has home glucometer already Outpt Follow Up-- PCP SUBJECTIVE/HPI: CHIEF COMPLAINT: No chief complaint on file. S/p CABGx3 Noted hx of DM2 upon chart review, sees PCP for this. Not on insulin only oral medications No history of thyroid disease 02-04: Blood sugar variable, elevated this morning drinking regular Coke Counseled against drinking regular Coke or eating donuts Ate all of his breakfast Denies nausea vomiting abdominal pain Plan is for discharge today he will follow-up closely with his family doctor for his diabetes Interval events 02-03: Blood sugar elevated, insulin adjusted today Awake alert ambulating in room up in bathroom Vitals are stable Did eat a bagel this morning for breakfast No nausea vomiting noted Spoke with team and family in the room interval 02/02 Appetite improving, no abd pain, n/v. at bedside. POC glucose and insulin administration for last 24h reviewed. Interval 02/01 Ate bkfast, no abd pain, n/v. at bedside. POC glucose and insulin administration for last 24h reviewed. Interval events 01-31: BGL stable on insulin gtt 1.5/hr-plan to tx off Up awake VSS RA Walking in halls CT in place Ate small bfast- burundian toast No nv noted Spoke with team Family present BGL below Stable on insulin gtt 3/hr No A1c in chart or Care Everywhere order placed to check lab level add on No pressors are currently on Patient is awake alert extubated VSS RA Family in room Confirmed his home diabetes medication regimen, sees PCP for this He is already on a GLP-1, states he has never been on Jardiance or Farxiga before Has a home glucometer, states that his ranges between 80-100 recently, no noted lows Did have some nausea vomiting this morning, had a few bites of breakfast X 2 chest tubes are in place Spoke with team Type of DM: 2 Onset of DM: Over 25 years ago Home DM Medication Regimen: glimipiride 2 mg daily, metformin 500 mg tid (2 tabs a.m., 1 tab lunch, 2 tabs p.m.), ozempic 1 mg weekly on Wednesdays DM control (last A1c/glucose data): Lab Results Component Value Date HGBA1C 6.8 (H) 01/30/2025 Glucose Date/Time Value Ref Range Status 02/04/2025 07:21 AM 208 (H) 70 - 100 mg/dL Final 02/03/2025 06:02 PM 187 (H) 70 - 100 mg/dL Final 02/03/2025 11:39 AM 290 (H) 70 - 100 mg/dL Final 02/03/2025 07:18 AM 220 (H) 70 - 100 mg/dL Final 02/02/2025 04:20 PM 240 (H) 70 - 100 mg/dL Final 02/02/2025 11:29 AM 289 (H) 70 - 100 mg/dL Final Review of Systems ROS negative except for those mentioned in HPI. OBJECTIVE: Vitals: 02/04/25 0100 02/04/25 0200 02/04/25 0300 02/04/25 0600 BP: 132/71 114/60 BP Location: Right arm Patient Position: Lying Pulse: 66 63 64 Resp: 18 Temp: 36.9 C (98.5 F) TempSrc: Temporal SpO2: 94% 94% 97% Weight: 206 lb 2.1 oz (93.5 kg) Height: Physical Exam Vitals and nursing note reviewed. Constitutional: General: He is not in acute distress. Appearance: He is not toxic-appearing or diaphoretic. Cardiovascular: Rate and Rhythm: Normal rate. Pulmonary: Effort: Pulmonary effort is normal. Abdominal: Tenderness: There is no guarding. Musculoskeletal: Cervical back: Normal range of motion. Skin: General: Skin is warm and dry. Coloration: Skin is pale. Comments: Intact incision Neurological: Mental Status: He is oriented to person, place, and time. Mental status is at baseline. Psychiatric: Mood and Affect: Mood normal. 24 hour intake/output:No intake or output data in the 24 hours ending 02/04/25 0904 Diet: Adult diet Regular; No Added Salt (3-4 gm); 5 carb choices (75 gm/meal) Medications (as per EMR): HomeMeds: Current Outpatient Medications Medication Instructions aspirin 81 mg, Daily cholecalciferol (VITAMIN D-3) 50 mcg, Daily coenzyme Q-10 100 mg, Daily dilTIAZem CD (CARDIZEM CD) 360 mg, Daily ezetimibe (ZETIA) 10 mg, Daily famotidine (PEPCID) 40 mg, Daily PRN glimepiride (AMARYL) 2 mg, Daily hydroCHLOROthiazide (HYDRODIURIL) 25 mg, Daily losartan (COZAAR) 100 mg, Daily metFORMIN (GLUCOPHAGE) 500 mg, 3 times daily with meals Multiple Vitamin (multivitamin) tablet 1 tablet, Daily mupirocin (Bactroban) 2 % ointment Using a q-tip, place small fingertip size amount into each nostril the night before surgery. Do not occlude nasal passage. Ozempic (1 MG/DOSE) 1 mg, Weekly Scheduled Meds:Scheduled Meds[1] Continuous Infusions:Continuous Meds[2] PRN Meds:PRN Meds[3] Diagnostic Workup: I reviewed pertinent Laboratory results, Radiographic results, and Other Clinical Notes at the time of today's encounter. Labs: No components found for: LABA1C No components found for: EAG Lab Results Component Value Date NA 137 02/04/2025 K 3.7 02/04/2025 CL 104 02/04/2025 CO2 24 02/04/2025 BUN 22 02/04/2025 CREATININE 1.03 02/04/2025 GLUCOSE 182 (H) 02/04/2025 CALCIUM 9.1 02/04/2025 No results found for: CHLPL, CHOL No results found for: TRIG No results found for: HDL No results found for: LDLCALC No results found for: VLDL No results found for: CHOLHDLRATIO No results found for: NFZC45AVE No results found for: TSH, U1QCHYZ, B3TBTBM, THYROIDAB Radiology reportsas per the Radiologist Radiology: Transesophageal echocardiogram (ANA M) with contrast and 3D PRN Result Date: 01/30/2025 Left Ventricle: Left ventricle size is normal. Mildly increased wall thickness. Low normal left ventricular systolic function. The EF by visual approximation is 50%. Normal wall motion. Right Ventricle: Right ventricle size is normal. Normal systolic function. Left Atrium: Windsock appendage. No left atrial appendage thrombus noted. No left atrial appendage mass noted. No significant valvular abnormalities. POCT glucose meter Result Date: 01/30/2025 Performed by: [facility], [address] [place] [address] CLIA ID: [id number] POCT glucose meter Result Date: 01/30/2025 Performed by: [facility], [address] [place] [address] CLIA ID: [id number] ECG 12 lead Sinus rhythm Lateral infarct, acute Borderline ST elevation, anterior leads POCT glucose meter Result Date: 01/30/2025 Performed by: [address] [address] CLIA ID: [id number] POCT glucose meter Result Date: 01/30/2025 Performed by: [facility], [address] [place] [address], [facility] [address] CLIA ID: [id number] XR chest 1 view Result Date: 01/30/2025 [facility] Name[facility] 1955 [id number] Exam Date/Time: 01/30/2025 05:12 Procedure: XR CHEST 1 VIEW Ordering Provider: SHEIKH ANDREW Reason For Exam: Shortness of breath CHEST - PORTABLE: CLINICAL INDICATION: Shortness of breath. TECHNIQUE: Portable AP COMPARISON: One day ago FINDINGS: Tubes, lines and devices: Right jugular venous catheter along with the mediastinal drain and chest tubes Heart/Mediastinum: Unchanged Lungs/Pleura: Atelectasis at the left lung base. No other consolidation or pneumothorax. Costophrenic angles are sharp. Tubes in adequate position. Left basilar atelectasis Report Dictated on Electronically Signed By: Edmundo Cordoba MD Electronically Signed Date/Time: 01/30/2025 6:18 AM EDT POCT glucose meter Result Date: 01/30/2025 Performed by: [address] [address] CLIA ID: [id number] POCT glucose meter Result Date: 01/30/2025 Performed by: [address] [address] CLIA ID: [id number] POCT glucose meter Result Date: 01/30/2025 Performed by: [facility], [address] [place] [address], [place] [address] CLIA ID: [id number] POCT glucose meter Result Date: 01/30/2025 Performed by: [facility], [address] [place] [address], [place] [address] CLIA ID: [id number] POCT glucose meter Result Date: 01/30/2025 Performed by: [facility], [address] [place] [address] [place] [address] CLIA ID: [id number] POCT glucose meter Result Date: 01/30/2025 Performed by: [facility], [address] [place] [address], [facility] [address] CLIA ID: [id number] POCT glucose meter Result Date: 01/29/2025 Performed by: [facility], [address] [place] [address] CLIA ID: [id number] POCT glucose meter Result Date: 01/29/2025 Performed by: [facility], [address] [place] [address], [facility] [address] CLIA ID: [id number] POCT glucose meter Result Date: 01/29/2025 Performed by: [facility], [address] [place] [address], [facility] [address] CLIA ID: [id number] XR chest 1 view Result Date: 01/29/2025 Patient Name: RYAN MACEDO : 1955 [facility]#: [id number] Exam Date/Time: 01/29/2025 20:00 Procedure: XR CHEST 1 VIEW Ordering Provider: YOUSSEF RYAN Reason For Exam: monitoring for PTX SINGLE FRONTAL VIEW OF THE CHEST CLINICAL INDICATION: monitoring for PTX TECHNIQUE: Single frontal view of the chest COMPARISON: Earlier today FINDINGS: Small right-sided pneumothorax not significantly changed. RIGHT central venous catheter tip in the SVC. Status post CABG. Bibasilar chest tubes. Mediastinal drain. LEFT basilar atelectasis. Mild cardiac enlargement. Scoliosis convex to the RIGHT. 1. Tubes and lines as described. Small right-sided pneumothorax not significantly different. LEFT basilar atelectasis. Report Dictated on Electronically Signed By: Tony Ziegler MD Electronically Signed Date/Time: 01/29/2025 8:54 PM EDT POCT glucose meter Result Date: 01/29/2025 Performed by: [facility], [address] [place] [address] CLIA ID: [id number] POCT glucose meter Result Date: 01/29/2025 Performed by: [address] [address] CLIA ID: [id number] XR chest 1 view Result Date: 01/29/2025 Patient Name: RYAN MACEDO : 1955 Exam Date/Time: 01/29/2025 16:37 Procedure: XR CHEST 1 VIEW Ordering Provider: SHEIKH ANDREW Reason For Exam: Post op open heart surgery; ETT placement Gender: Male Age: 69 years History: Post op open heart surgery; ETT placement Exam: XR CHEST 1 VIEW COMPARISON: None. FINDINGS: The endotracheal tube tip is approximately 4 cm above the level of the scott. A right IJ vascular catheter tip overlies the superior vena cava. The endotracheal tube tip is below the hemidiaphragm but excluded from [id number]-ej-[id number]. A mediastinal drain and bilateral chest tubes are present. The trachea is midline. Median sternotomy wires and clips are present. The heart is not enlarged. A small right apical pneumothorax is present, likely postsurgical in etiology. There is no confluent consolidation or sizable pleural effusion. 1. Postsurgical changes (CABG). 2. Small right apical pneumothorax (likely postsurgical). Bilateral chest tubes and mediastinal drain present. 3. Support devices, as above.. Report Dictated on Electronically Signed By: Angela Arias MD Electronically Signed Date/Time: 01/29/2025 5:31 PM EDT POCT glucose meter Result Date: 01/29/2025 Performed by: [facility], [address] [place] [address] CLIA ID: [id number] ECG 12 lead Sinus rhythm Borderline prolonged NV interval NS ST changes diffusely Electronically Signed On 01-29-2025 16:38:12 EDT by Lorne Staton POCT glucose meter Result Date: 01/29/2025 Performed by: [address] [address] CLIA ID: [id number] POCT glucose meter Result Date: 01/29/2025 Performed by: [facility], [address] [place] [address] CLIA ID: [id number] History/Other: Past Medical History: Medical History[4] Past Surgical History: Surgical History[5] Allergy(ies): Allergies[6] Family History: Family History[7] Social History: Social History[8] Portions of the information within this encounter were entered using an electronic dictation system. Best attempts were made to edit/proofread the information prior to note completion. Despite the review of information, some errors may remain. If there are questions related to the information contained within the note please contact the signing physician directly. Total time spent 35 minutes with the pt which involved coordination of care, medical evaluation, review of records, and/or counseling of the pt regarding his/her condition/disease state/prognosis on the date of this note. [1] acetaminophen, 1,000 mg, Oral, q8h amiodarone, 400 mg, Oral, BID aspirin, 81 mg, Oral, Daily chlorhexidine, 15 mL, Mouth/Throat, BID enoxaparin, 40 mg, SubCUTAneous, Daily ezetimibe, 10 mg, Oral, Nightly furosemide, 40 mg, Oral, Daily insulin glargine, 22 Units, SubCUTAneous, q AM insulin lispro, 0-12 Units, SubCUTAneous, TID WC insulin lispro, 10 Units, SubCUTAneous, TID WC Lidocaine, 1 patch, Topical, Daily methocarbamol, 1,000 mg, Oral, 3 times per day metoprolol tartrate, 50 mg, Oral, BID pantoprazole, 40 mg, Oral, qAM AC polyethylene glycol (PEG) 3350, 17 g, Oral, Daily senna-docusate sodium, 2 tablet, Oral, Nightly [2] lactated ringers, 250 mL, Last Rate: Stopped (01/30/25 0254) [3] PRN medications: albumin human, calcium gluconate, dextrose, dextrose, glucagon (rDNA), glucose, ipratropium-albuterol, lactated ringers, magnesium sulfate OR magnesium sulfate, melatonin, naloxone, ondansetron ODT OR ondansetron, oxyCODONE OR oxyCODONE, potassium chloride OR potassium chloride OR potassium chloride, potassium chloride CR, prochlorperazine [4] Past Medical History: Diagnosis Date Diabetes mellitus (HCC) GERD (gastroesophageal reflux disease) Gout History of kidney stones Hyperlipidemia Hypertension Lumbar stenosis Osteoarthritis PONV (postoperative nausea and vomiting) [5] Past Surgical History: Procedure Laterality Date BACK SURGERY lumbar KNEE SURGERY Right arthroscopy for meniscus tear ROTATOR CUFF REPAIR Left [6] Allergies Allergen Reactions Enalapril Cough Rosuvastatin Other Reaction(s): fatigue Pravastatin Other Reaction(s): fatigue [7] Family History Problem Relation Name Age of Onset Diabetes Mother Coronary artery disease Father Melanoma Father Heart Surgery Father Coronary artery disease Brother [8] Social History Tobacco Use Smoking status: Never Smokeless tobacco: Never Vaping Use Vaping status: Never Used Substance Use Topics Alcohol use: Never Drug use: Never Images from the original note were not included. OCCUPATIONAL THERAPY [facility] Name/MRN: Ryan Macedo ([id number]) Date: 02/03/2025 Pt is alert and oriented to where they can understand that therapy was being offered to them. Evaluation was offered and patient refused. The reason stated by patient for refusal was due to feeling tired/fatigued. The therapist explained the proposed treatment, the expected benefits and outcome of the treatment and possible medical consequences/risks of refusal. Fam Dorsey OT Images from the original note were not included. PHYSICAL THERAPY [facility] Treatment Note Name/MRN: Ryan Macedo ([id number]) Date of : 1955 Age: 69 y.o. Room/Bed: T1-121/T1-121 A Discharge Recommendation: Home with assist PRN, Home with Home health PT Equipment Needed: Yes Mobility Devices: Walker Walker: Rolling Prior Level of Function Prior Level of ADL Function: Independent Prior Level of Mobility: Independent; Device: None Prior Level of Transfers: Independent Assessment Pt requires CGA for ambulation, SBA for transfers and gait. No PT goals met this session. Recommend home with assist and HHPT. Subjective Pt is sitting up in the chair, agrees to PT. Pain: Wick-Erickson Pain Ratin = Hurts a little bit Pain Location: chest/incision Medical Precautions: No active isolations Proper PPE donned/doffed in accordance with facility standards. Fall Risk: Staley Fall Risk Score: 35 (Medium Risk) Precautions/Restrictions: Sternal Precautions: No lifting greater than 10 lbs. Ok for modified UE precautions using Keep Your Move in the Tube technique Lines/Drains/Airways: x2 chest tubes, sanchez, tele, on RA initially, R I.I triple lumen Overall Cognitive Status: WFL Overall Orientation Status: Oriented to Place and Oriented to Person Family/Caregiver Present: none Objective Transfers/Mobility Sit to stand: SBA Stand to sit: SBA Ambulation Ambulation 1 Assistive device(s) used: None Assist level: Contact Guard Distance (ft): 100 ft x 2, 150 ft Balance During Session: Static stand without device with SBA Stairs Stairs 1 Assistive device(s) used: None Assist level: SBA # of steps: 4 Rails: right Additional factors: reciprocal going up, reciprocal going down Plan Continue acute PT per plan of care. Safety/Education Safety Safety Devices in place: All fall risk precautions in place, call light within reach, left in chair, and no alarms engaged upon entry Restraints: No Education Education Given To: patient Education Provided: PT Role, PT Goals, Gait Training, Plan of Care, Home Exercise Program, Precautions, Transfer Training, and Discharge Recommendations Education Method: Verbal Barriers to Learning: None Education Outcome: Verbalized Understanding and Continued Education Needed Outcome Measures AM-PAC AM-PAC Inpatient Mobility Raw Score : 17 AM-PAC Inpatient Mobility Raw Score (No Stairs) : 14 JH-HLM JH-HLM Scale: Walked 250 ft or more (i.e. several laps on unit) Goals Patient Stated Goal: To reduce pain and nausea and be Indep again Encounter Problems Encounter Problems (Active) Cardiac Patient will perform bed mobility with independence in order to improve independence and prepare for out of bed mobility. (Not Addressed) Start: 01/30/25 Expected End: 02/13/25 Patient will complete sit to stand transfer with independence to none in order to improve safety and prepare for out of bed mobility. (Progressing) Start: 01/30/25 Expected End: 02/13/25 Patient will ambulate 300 feet or ambulate 5 minutes with modified independence with RPE of 14 or lower. (Progressing) Start: 01/30/25 Expected End: 02/13/25 Patient will ascend and descend 4 # stairs with modified independence rail for balance only. (Progressing) Start: 01/30/25 Expected End: 02/13/25 Patient will be independent with P&C exercises. (Progressing) Start: 01/30/25 Expected End: 02/13/25 Patient will be independent with managing secretions and home walking program. (Progressing) Start: 01/30/25 Expected End: 02/13/25 Therapy Time Individual Co-treatment Time In 1057 Time Out 1115 Minutes 18 Timed Code Treatment Minutes: (gt) Miguelina Ortiz PTA Cosigned by Doreen Kerns PT at 02/03/2025 3:42 PM EDT Department of Internal Medicine Division of Endocrinology, Diabetes, & Metabolism Endocrinology Note Patient Name: Ryan Macedo : 1955 AGE: 69 y.o. Room/Bed: T1-121/T1-121 A Admission Date: 01/29/2025 Visit Date: 02/03/2025 Reason for Endocrine Consult: post heart Provider/Team Requesting Consult: cts PCP: MIRIAM GOMEZ Outpt Travel Assistant: No ASSESSMENT: Stress hyperglycemia DM2 with hyperglycemia without exterminator termite insulin CABGx3 Htn/hld/cad PLAN: -Blood sugar elevated -Increase lantus 220 daily -Increase Humalog to moderate sliding scale meals -Increase Humalog 02/14/10 units tid meals ICU goal <180 GMF goal <150 POCT BG ACHS Hypoglycemia management per protocol Carb controlled diet ANTICIPATED ENDOCRINE HOME GOING RECOMMENDATIONS: Optimized for Discharge from Endocrine standpoint: No Home Going Endocrine Rx Recommendations-- TBD-Home regimen glimepiride, metformin, Ozempic Consider SGLT2 possibly Has home glucometer already Outpt Follow Up-- PCP SUBJECTIVE/HPI: CHIEF COMPLAINT: No chief complaint on file. S/p CABGx3 Noted hx of DM2 upon chart review, sees PCP for this. Not on insulin only oral medications No history of thyroid disease Interval events -: Blood sugar elevated, insulin adjusted today Awake alert ambulating in room up in bathroom Vitals are stable Did eat a bagel this morning for breakfast No nausea vomiting noted Spoke with team and family in the room interval 02/02 Appetite improving, no abd pain, n/v. at bedside. POC glucose and insulin administration for last 24h reviewed. Interval 02/01 Ate bkfast, no abd pain, n/v. at bedside. POC glucose and insulin administration for last 24h reviewed. Interval events -: BGL stable on insulin gtt 1.5/hr-plan to tx off Up awake VSS RA Walking in halls CT in place Ate small bfast- burundian toast No nv noted Spoke with team Family present BGL below Stable on insulin gtt 3/hr No A1c in chart or Care Everywhere order placed to check lab level add on No pressors are currently on Patient is awake alert extubated VSS RA Family in room Confirmed his home diabetes medication regimen, sees PCP for this He is already on a GLP-1, states he has never been on Jardiance or Farxiga before Has a home glucometer, states that his ranges between 80-100 recently, no noted lows Did have some nausea vomiting this morning, had a few bites of breakfast X 2 chest tubes are in place Spoke with team Type of DM: 2 Onset of DM: Over 25 years ago Home DM Medication Regimen: glimipiride 2 mg daily, metformin 500 mg tid (2 tabs a.m., 1 tab lunch, 2 tabs p.m.), ozempic 1 mg weekly on Wednesdays DM control (last A1c/glucose data): Lab Results Component Value Date HGBA1C 6.8 (H) 01/30/2025 Glucose Date/Time Value Ref Range Status 02/03/2025 07:18 AM 220 (H) 70 - 100 mg/dL Final 02/02/2025 04:20 PM 240 (H) 70 - 100 mg/dL Final 02/02/2025 11:29 AM 289 (H) 70 - 100 mg/dL Final 02/02/2025 07:43 AM 200 (H) 70 - 100 mg/dL Final 02/01/2025 04:49 PM 182 (H) 70 - 100 mg/dL Final 02/01/2025 11:45 AM 212 (H) 70 - 100 mg/dL Final Review of Systems ROS negative except for those mentioned in HPI. OBJECTIVE: Vitals: 02/03/25 0400 02/03/25 0500 02/03/25 0600 02/03/25 0700 BP: BP Location: Patient Position: Pulse: 63 63 61 61 Resp: Temp: 36.1 C (97 F) TempSrc: Temporal SpO2: 94% 96% 97% 100% Weight: Height: Physical Exam Vitals and nursing note reviewed. Constitutional: General: He is not in acute distress. Appearance: He is not toxic-appearing or diaphoretic. Cardiovascular: Rate and Rhythm: Normal rate. Pulmonary: Effort: Pulmonary effort is normal. Abdominal: Tenderness: There is no guarding. Musculoskeletal: Cervical back: Normal range of motion. Skin: General: Skin is warm and dry. Coloration: Skin is pale. Comments: Intact incision Neurological: Mental Status: He is oriented to person, place, and time. Mental status is at baseline. Psychiatric: Mood and Affect: Mood normal. 24 hour intake/output: Intake/Output Summary (Last 24 hours) at 02/03/2025 0903 Last data filed at 02/03/2025 0600 Gross per 24 hour Intake 480 ml Output 580 ml Net -100 ml Diet: Adult diet Regular; No Added Salt (3-4 gm); 5 carb choices (75 gm/meal) Medications (as per EMR): HomeMeds: Current Outpatient Medications Medication Instructions aspirin 81 mg, Daily cholecalciferol (VITAMIN D-3) 50 mcg, Daily coenzyme Q-10 100 mg, Daily dilTIAZem CD (CARDIZEM CD) 360 mg, Daily ezetimibe (ZETIA) 10 mg, Daily famotidine (PEPCID) 40 mg, Daily PRN glimepiride (AMARYL) 2 mg, Daily hydroCHLOROthiazide (HYDRODIURIL) 25 mg, Daily losartan (COZAAR) 100 mg, Daily metFORMIN (GLUCOPHAGE) 500 mg, 3 times daily with meals Multiple Vitamin (multivitamin) tablet 1 tablet, Daily mupirocin (Bactroban) 2 % ointment Using a q-tip, place small fingertip size amount into each nostril the night before surgery. Do not occlude nasal passage. Ozempic (1 MG/DOSE) 1 mg, Weekly Scheduled Meds:Scheduled Meds[1] Continuous Infusions:Continuous Meds[2] PRN Meds:PRN Meds[3] Diagnostic Workup: I reviewed pertinent Laboratory results, Radiographic results, and Other Clinical Notes at the time of today's encounter. Labs: No components found for: LABA1C No components found for: EAG Lab Results Component Value Date NA 138 02/03/2025 K 3.4 (L) 02/03/2025 CL 111 (H) 02/03/2025 CO2 22 (L) 02/03/2025 BUN 24 (H) 02/03/2025 CREATININE 0.86 02/03/2025 GLUCOSE 200 (H) 02/03/2025 CALCIUM 7.6 (L) 02/03/2025 No results found for: CHLPL, CHOL No results found for: TRIG No results found for: HDL No results found for: LDLCALC No results found for: VLDL No results found for: CHOLHDLRATIO No results found for: OGPR81UKA No results found for: TSH, T5YZWEP, J2QOOSR, THYROIDAB Radiology reportsas per the Radiologist Radiology: Transesophageal echocardiogram (ANA M) with contrast and 3D PRN Result Date: 01/30/2025 Left Ventricle: Left ventricle size is normal. Mildly increased wall thickness. Low normal left ventricular systolic function. The EF by visual approximation is 50%. Normal wall motion. Right Ventricle: Right ventricle size is normal. Normal systolic function. Left Atrium: Windsock appendage. No left atrial appendage thrombus noted. No left atrial appendage mass noted. No significant valvular abnormalities. POCT glucose meter Result Date: 01/30/2025 Performed by: [facility], [address] [facility] [address] CLIA ID: [id number] POCT glucose meter Result Date: 01/30/2025 Performed by: [facility], [address] [place] [address] CLIA ID: [id number] ECG 12 lead Sinus rhythm Lateral infarct, acute Borderline ST elevation, anterior leads POCT glucose meter Result Date: 01/30/2025 Performed by: [address] [address] CLIA ID: [id number] POCT glucose meter Result Date: 01/30/2025 Performed by: [facility], [address] [place] [address] CLIA ID: [id number] XR chest 1 view Result Date: 01/30/2025 Patient Name: RYAN MACEDO : 1955 Exam Date/Time: 01/30/2025 05:12 Procedure: XR CHEST 1 VIEW Ordering Provider: SHEIKH ANDREW Reason For Exam: Shortness of breath CHEST - PORTABLE: CLINICAL INDICATION: Shortness of breath. TECHNIQUE: Portable AP COMPARISON: One day ago FINDINGS: Tubes, lines and devices: Right jugular venous catheter along with the mediastinal drain and chest tubes Heart/Mediastinum: Unchanged Lungs/Pleura: Atelectasis at the left lung base. No other consolidation or pneumothorax. Costophrenic angles are sharp. Tubes in adequate position. Left basilar atelectasis Report Dictated on Electronically Signed By: Edmundo Cordoba MD Electronically Signed Date/Time: 01/30/2025 6:18 AM EDT POCT glucose meter Result Date: 01/30/2025 Performed by: [address] [address] CLIA ID: [id number] POCT glucose meter Result Date: 01/30/2025 Performed by: [address] [address] CLIA ID: [id number] POCT glucose meter Result Date: 01/30/2025 Performed by: [address] [address] CLIA ID: [id number] POCT glucose meter Result Date: 01/30/2025 Performed by: [facility], [address] [place] [address], [place] [address] CLIA ID: [id number] POCT glucose meter Result Date: 01/30/2025 Performed by: [facility], [address] [place] [address], [place] [address] CLIA ID: [id number] POCT glucose meter Result Date: 01/30/2025 Performed by: [facility], [address] [place] [address], [place] [address] CLIA ID: [id number] POCT glucose meter Result Date: 01/29/2025 Performed by: [facility], [address] [place] [address], [place] [address] CLIA ID: [id number] POCT glucose meter Result Date: 01/29/2025 Performed by: [facility], [address] [place] [address], [place] [address] CLIA ID: [id number] POCT glucose meter Result Date: 01/29/2025 Performed by: [facility], [address] [place] [address], [facility] [address] CLIA ID: [id number] XR chest 1 view Result Date: 01/29/2025 Patient Name: RYAN MACEDO : 1955 [facility]#: [id number] Exam Date/Time: 01/29/2025 20:00 Procedure: XR CHEST 1 VIEW Ordering Provider: YOUSSEF RYAN Reason For Exam: monitoring for PTX SINGLE FRONTAL VIEW OF THE CHEST CLINICAL INDICATION: monitoring for PTX TECHNIQUE: Single frontal view of the chest COMPARISON: Earlier today FINDINGS: Small right-sided pneumothorax not significantly changed. RIGHT central venous catheter tip in the SVC. Status post CABG. Bibasilar chest tubes. Mediastinal drain. LEFT basilar atelectasis. Mild cardiac enlargement. Scoliosis convex to the RIGHT. 1. Tubes and lines as described. Small right-sided pneumothorax not significantly different. LEFT basilar atelectasis. Report Dictated on Electronically Signed By: Tony Ziegler MD Electronically Signed Date/Time: 01/29/2025 8:54 PM EDT POCT glucose meter Result Date: 01/29/2025 Performed by: [address] [address] CLIA ID: [id number] POCT glucose meter Result Date: 01/29/2025 Performed by: [address] [address] CLIA ID: [id number] XR chest 1 view Result Date: 01/29/2025 [facility] Name[facility] 1955 [id number] Exam Date/Time: 01/29/2025 16:37 Procedure: XR CHEST 1 VIEW Ordering Provider: SHEIKH ANDREW Reason For Exam: Post op open heart surgery; ETT placement Gender: Male Age: 69 years History: Post op open heart surgery; ETT placement Exam: XR CHEST 1 VIEW COMPARISON: None. FINDINGS: The endotracheal tube tip is approximately 4 cm above the level of the scott. A right IJ vascular catheter tip overlies the superior vena cava. The endotracheal tube tip is below the hemidiaphragm but excluded from uygna-sf-ukzy. A mediastinal drain and bilateral chest tubes are present. The trachea is midline. Median sternotomy wires and clips are present. The heart is not enlarged. A small right apical pneumothorax is present, likely postsurgical in etiology. There is no confluent consolidation or sizable pleural effusion. 1. Postsurgical changes (CABG). 2. Small right apical pneumothorax (likely postsurgical). Bilateral chest tubes and mediastinal drain present. 3. Support devices, as above.. Report Dictated on Electronically Signed By: Angela Arias MD Electronically Signed Date/Time: 01/29/2025 5:31 PM EDT POCT glucose meter Result Date: 01/29/2025 Performed by: [address] [address] CLIA ID: [id number] ECG 12 lead Sinus rhythm Borderline prolonged NV interval NS ST changes diffusely Electronically Signed On 01-29-2025 16:38:12 EDT by Lorne Staton POCT glucose meter Result Date: 01/29/2025 Performed by: [address] [id number] CLIA ID: [id number] POCT glucose meter Result Date: 01/29/2025 Performed by: [facility], [address] [place] [address], [place] [id number] CLIA ID: [id number] History/Other: Past Medical History: Medical History[4] Past Surgical History: Surgical History[5] Allergy(ies): Allergies[6] Family History: Family History[7] Social History: Social History[8] Portions of the information within this encounter were entered using an electronic dictation system. Best attempts were made to edit/proofread the information prior to note completion. Despite the review of information, some errors may remain. If there are questions related to the information contained within the note please contact the signing physician directly. Total time spent 15 minutes with the pt which involved coordination of care, medical evaluation, review of records, and/or counseling of the pt regarding his/her condition/disease state/prognosis on the date of this note. [1] acetaminophen, 1,000 mg, Oral, q8h amiodarone, 400 mg, Oral, BID aspirin, 81 mg, Oral, Daily chlorhexidine, 15 mL, Mouth/Throat, BID enoxaparin, 40 mg, SubCUTAneous, Daily ezetimibe, 10 mg, Oral, Nightly furosemide, 40 mg, Oral, Daily insulin glargine, 17 Units, SubCUTAneous, q AM insulin lispro, 0-6 Units, SubCUTAneous, TID WC insulin lispro, 6 Units, SubCUTAneous, TID WC Lidocaine, 1 patch, Topical, Daily methocarbamol, 1,000 mg, Oral, 3 times per day metoprolol tartrate, 50 mg, Oral, BID pantoprazole, 40 mg, Oral, qAM AC polyethylene glycol (PEG) 3350, 17 g, Oral, Daily senna-docusate sodium, 2 tablet, Oral, Nightly [2] lactated ringers, 250 mL, Last Rate: Stopped (01/30/25 0254) [3] PRN medications: albumin human, calcium gluconate, dextrose, dextrose, glucagon (rDNA), glucose, ipratropium-albuterol, lactated ringers, magnesium sulfate OR magnesium sulfate, naloxone, ondansetron ODT OR ondansetron, oxyCODONE OR oxyCODONE, potassium chloride OR potassium chloride OR potassium chloride, potassium chloride CR, prochlorperazine [4] Past Medical History: Diagnosis Date Diabetes mellitus (HCC) GERD (gastroesophageal reflux disease) Gout History of kidney stones Hyperlipidemia Hypertension Lumbar stenosis Osteoarthritis PONV (postoperative nausea and vomiting) [5] Past Surgical History: Procedure Laterality Date BACK SURGERY lumbar KNEE SURGERY Right arthroscopy for meniscus tear ROTATOR CUFF REPAIR Left [6] Allergies Allergen Reactions Enalapril Cough Rosuvastatin Other Reaction(s): fatigue Pravastatin Other Reaction(s): fatigue [7] Family History Problem Relation Name Age of Onset Diabetes Mother Coronary artery disease Father Melanoma Father Heart Surgery Father Coronary artery disease Brother [8] Social History Tobacco Use Smoking status: Never Smokeless tobacco: Never Vaping Use Vaping status: Never Used Substance Use Topics Alcohol use: Never Drug use: Never Cosigned by Martell Mora MD at 02/03/2025 1:47 PM EDT Associated attestation - Martell Mora MD - 02/03/2025 1:47 PM EDT I have personally performed a face to face diagnostic evaluation on this patient. In addition, I have reviewed the resident's/SAW SETTER/SAS CLINICAL PROGRAMMER's care plan and agree with those findings I have performed a substantive portion of the the medical decision making. My findings are as follows: Patient takes 2 mg daily at 12 with metformin and Ozempic 1 mg weekly A1c before surgery 6.8% Reported reasonable blood sugar readings at home Status post CABG Now on basal bolus insulin during hospitalization Blood sugar readings are elevated Vitals: BP 124/62 (BP Location: Right arm, Patient Position: Sitting) Pulse 62 Temp 36.2 C (97.2 F) (Temporal) Resp 16 Ht 6' 4 (1.93 m) Wt 207 lb 3.7 oz (94 kg) SpO2 98% BMI 25.23 kg/m Constitutional: Well developed Eyes: Conjunctiva clear, Pupils equal Neck: No masses, No thyromegaly Respiratory: No respiratory distress Cardiovascular System:No lower extremity edema Psychiatric: Conscious, alert, oriented to time, place and person A/P Type 2 diabetes with hyperglycemia without long-term insulin use Type 2 diabetes with cardiac complication status post CABG Blood glucose readings are elevated so we will recommend to increase Lantus to 22 units every morning and Humalog to 10 units before meals with medium dose correction before meals Patient can be discharged on his home regimen. I counseled patient in the future that is appropriate to consider increasing Ozempic to 2 mg weekly and discontinuing the glimepiride. Also he could benefit from SGLT2 inhibitor I spent 35 minutes with the pt which involved in coordination of care, medical evaluation, review of records, and/or counseling of the pt regarding his/her condition/disease state/prognosis on the date of this note. Old records including available PCP, ED notes and or other specialists notes are reviewed. LABs and/or imaging are reviewed as detailed in the resident's/SAW SETTER/SAS CLINICAL PROGRAMMER's note Chest tubes assessed, no air leak. Chest tube removed without issues. Discussed with nursing and patient. HARMONY Paulino CNP 02/03/25 Images from the original note were not included. Cardiothoracic Surgery/CCM Progress Note PATIENT NAME: Ryan Macedo DATE: 02/03/25 HPI: 69 y.o.male with pmHx of GERD, HTN, HLD, OA, Gout and DM was seen in the OP setting by CTS for potential CABG. Initially patient underwent a stress test which was suggestive of ischemia at a moderate workload. He then underwent a cardiac cath which noted: MVCAD with severe disease involving the circumflex and RCA, moderately severe disease involving the LAD and mild LV systolic dysfunction. He consented and was taken to the operating room on 01/29/25 for CABG x [address] Herrera. Surgery/Procedure: 01/29/25- CABG x3 (FAIR-LAD, SVG-OM1, SVG-RPDA), LLE EVH with Dr. Herrera Interval History: 02/03/25, POD# 5: VSS, afebrile, NSR on tele. On RA. Resting in bed, having some muscle soreness after working with PT yesterday. Discussed likely d/c tomorrow, he is agreeable to that plan. Review of Systems Constitutional: Negative for activity change, appetite change, diaphoresis, fatigue and fever. Respiratory: Negative for cough, shortness of breath and wheezing. Cardiovascular: Negative for chest pain, palpitations and leg swelling. Gastrointestinal: Negative for abdominal distention, abdominal pain, nausea and vomiting. Musculoskeletal: Positive for arthralgias. Skin: Negative for color change, pallor and rash. Objective: CT output cc/24hrs: 260 mL Last BM Date: 02/02/25 Vitals: BP: 153/83, MAP (mmHg): 103, BP Method: Automatic Heart Rate: 63 Resp: 20 Temp: 36.1 C (97 F), Temp Source: Temporal BMI (Calculated): 25.24 CXR: BMP: Recent Labs 02/01/25 0453 02/01/25 1203 02/02/25 0555 02/02/25 1005 02/03/25 0320 NA 137 < > 138 136 138 K 3.0* < > 3.3* 3.7 3.4* CL 111* < > 109* 103 111* CO2 20* < > 22* 21* 22* BUN 18 < > 24* 25* 24* CREATININE 0.82 < > 0.95 1.10 0.86 CALCIUM 7.2* < > 7.8* 8.9 7.6* MG 1.3* -- 1.8 -- 1.6 < > = values in this interval not displayed. CBC: Recent Labs 02/02/25 0555 02/02/25 1005 02/03/25 0320 WBC 5.2 7.3 5.7 HGB 7.0* 9.4* 7.5* HCT 21.4* 28.1* 23.0* PLT 150 231 213 MCV 94.7 93.7 95.0 RDW 12.7 12.8 12.7 INR: No results for input(s): INR in the last 72 hours. Physical Exam Cardiovascular: Rate and Rhythm: Normal rate and regular rhythm. Heart sounds: No murmur heard. No friction rub. Pulmonary: Effort: Pulmonary effort is normal. Breath sounds: No decreased breath sounds, wheezing or rhonchi. Abdominal: General: Bowel sounds are normal. Palpations: Abdomen is soft. Tenderness: There is no abdominal tenderness. Musculoskeletal: Right lower leg: No edema. Left lower leg: No edema. Skin: General: Skin is warm and dry. Capillary Refill: Capillary refill takes less than 2 seconds. Findings: Bruising and ecchymosis present. Comments: Surgical Incisions: well approximate; clean dry with no drainage noted. Surrounding skin no redness, warmth, or signs of infection noted. Neurological: Mental Status: He is alert. Psychiatric: Behavior: Behavior is cooperative. Assessment: MVCAD s/p CABGx3 GERD HTN HLD OA DM Post operative Pulm Management: Normal Post-operative Course Post-operative Atrial Fibrillation: []Yes [x] No Acute blood loss anemia Plan: Patient status: tele Medications: ASA/Zetia BB- Metoprolol 50mg BID Amio 400mg BID Lasix 40mg PO daily Bowel regimen: Miralax, senna GI prophy: PO protonix DVT prophy:TEDs, SCDs, and Lovenox SubQ Interventions: D/C CTs Encourage progressive mobility Pulmonary hygiene: IS and Acapella Consults: Endocrine following for insulin management PT/OT: PT: Home with assist PRN, Home with Home health PT TCC/Discharge Planning Likely d/c tomorrow Central Line: []Yes [x] No Arterial Line: []Yes [x] No Sanchez: []Yes [x] No Restraints: []Yes [x] No Patient discussed and plan of day developed from multidisciplinary rounds between Cardiothoracic Surgery (Cardiothoracic Surgeon, KIM) and Critical Care Attending Tele Status A total of 33 minutes were spent between the [id number]-hz-[id number] encounter, physical exam, reviewing the medical history, coordinating the patient's care, counseling/educating the patient, ordering medications/test/procedures, interpreting results and documenting clinical information in the patients electronic health record on the day of the encounter. The patient was seen and examined Cardiac Core Medications: ASA, BB, and No statin due to allergy EF: LVEF- 55% preop Blood Conservation: None noted in post-operative period Process Safety Management Engineer: [facility] Cosigned by Sunny Youssef DO at 02/03/2025 8:10 PM EDT Images from the original note were not included. Cardiothoracic Surgery/[facility] Progress Note PATIENT NAME: Ryan Macedo DATE: 02/02/25 HPI: 69 y.o.male with pmHx of GERD, HTN, HLD, OA, Gout and DM was seen in the OP setting by CTS for potential CABG. Initially patient underwent a stress test which was suggestive of ischemia at a moderate workload. He then underwent a cardiac cath which noted: MVCAD with severe disease involving the circumflex and RCA, moderately severe disease involving the LAD and mild LV systolic dysfunction. He consented and was taken to the operating room on 01/29/25 for CABG x [address] Herrera. Surgery/Procedure: 01/29/25- CABG x3 (FAIR-LAD, SVG-OM1, SVG-RPDA), LLE EVH with Dr. Herrera Interval History: 02/02/25, POD# 04. Afebrile, NSR on tele, BP stable, on RA. No acute issues noted. Pain controlled. Objective: CT output cc/24hrs: 415 Vitals: BP: 101/53, MAP (mmHg): 68, BP Method: Automatic Heart Rate: 66 Resp: 18 Temp: 36 C (96.8 F), Temp Source: Temporal BMI (Calculated): 25.24 BMP: Recent Labs 01/31/25 0411 02/01/25 0453 02/01/25 1203 02/02/25 0555 02/02/25 1005 NA 139 137 135* 138 136 K 3.5 3.0* 3.7 3.3* 3.7 CL 106 111* 102 109* 103 CO2 24 20* 24 22* 21* BUN 20 18 21 24* 25* CREATININE 1.06 0.82 1.06 0.95 1.10 CALCIUM 9.1 7.2* 9.0 7.8* 8.9 MG 1.9 1.3* -- 1.8 -- CBC: Recent Labs 02/01/25 0453 02/02/25 0555 02/02/25 1005 WBC 8.8 5.2 7.3 HGB 8.4* 7.0* 9.4* HCT 25.2* 21.4* 28.1* PLT 153 150 231 MCV 94.4 94.7 93.7 RDW 12.9 12.7 12.8 INR: Recent Labs 01/31/25 0411 INR 1.2* Physical Exam Vitals reviewed. Constitutional: General: He is not in acute distress. Appearance: He is not ill-appearing or diaphoretic. Neck: Comments: Central line. Cardiovascular: Rate and Rhythm: Normal rate and regular rhythm. Pulses: Normal pulses. Heart sounds: No murmur heard. Pulmonary: Effort: Pulmonary effort is normal. Breath sounds: No wheezing, rhonchi or rales. Abdominal: General: There is no distension. Palpations: Abdomen is soft. Comments: Chest tubes. Musculoskeletal: General: Swelling present. Skin: General: Skin is warm and dry. Capillary Refill: Capillary refill takes less than 2 seconds. Findings: Bruising present. Comments: Surgical incisions well approximated. No redness, warmth or drainage noted. Neurological: General: No focal deficit present. Mental Status: He is alert and oriented to person, place, and time. Assessment: MVCAD s/p CABGx3 GERD HTN HLD OA DM Post operative Pulm Management: Normal Post-operative Course Post-operative Atrial Fibrillation: [x]Yes [] No Acute blood loss anemia Plan: Patient status: PCU Continue aspirin and BB. Zetia, no statin. Amio 400mg BID. Lasix 40mg IV daily. Re-check lab work after electrolyte repletion. -Check Hgb. Bowel regimen +MOM. -Consider lactulose if no BM today. Monitor chest tubes, if output low after ambulation, consider removing. Remove central line. Daily labs and CXR. Out of bed, progressive mobility. GI prophy: PO protonix DVT prophy:TEDs, SCDs, and Lovenox SubQ Pulmonary hygiene: IS and Acapella Consults: Endocrinology. PT/OT: Home with assist PRN (01/31/25) TCC/Discharge Planning: TBD. Central Line: [x]Yes [] No Arterial Line: []Yes [x] No Sanchez: []Yes [x] No Restraints: []Yes [x] No Patient discussed and plan of day developed from multidisciplinary rounds between Cardiothoracic Surgery (Cardiothoracic Surgeon, KIM) and Critical Care Attending A total of 20 minutes were spent between the [id number]-nwjd encounter, physical exam, reviewing the medical history, coordinating the patient's care, counseling/educating the patient, ordering medications/test/procedures, interpreting results and documenting clinical information in the patients electronic health record on the day of the encounter. The patient was seen and examined. Cardiac Core Medications: ASA, BB, and No statin due to allergy EF: LVEF- 55% preop Blood Conservation: None noted in post-operative period Process Safety Management Engineer: [facility] Cosigned by Sunny Youssef DO at 02/02/2025 6:14 PM EDT Images from the original note were not included. PHYSICAL THERAPY [facility] Treatment Note Name/MRN: Ryan Macedo ([id number]) Date of : 1955 Age: 69 y.o. Room/Bed: T1-121/T1121 A Discharge Recommendation: Home with assist PRN, Home with Home health PT Equipment Needed: (TBD) Prior Level of Function Prior Level of ADL Function: Independent Prior Level of Mobility: Independent; Device: None Prior Level of Transfers: Independent Assessment Patient able to ambulate without Nezzie except for chest tubes and tele, so we did use Nezzie. P&c therex looked good, tends to perform very small ranges of motion but that is okay given that he still has chest tubes in and has discomfort. Is adamant about regaining his independence, prefers not to be told what to do. Discharge recommendation home with assist as needed and home health PT. Subjective Patient in bed and agreeable to therapy. Pain: Pt denies any current pain. Medical Precautions: No active isolations Proper PPE donned/doffed in accordance with facility standards. Fall Risk: Staley Fall Risk Score: 50 (High Risk) Precautions/Restrictions: Sternal Precautions: No lifting greater than 10 lbs. Ok for modified UE precautions using Keep Your Move in the Tube technique Lines/Drains/Airways: x2 chest tubes, tele Overall Cognitive Status: WNL Overall Orientation Status: Oriented x4 Family/Caregiver Present: spouse Objective Bed Mobility Supine to sit: Supervision Scooting: Supervision HOB Elevated Transfers/Mobility Sit to stand: SBA Stand to sit: SBA Sitting balance: Modified Independent Standing balance: SBA Device(s) used: [employer] Ambulation Ambulation 1 Assistive device(s) used: [employer] Assist level: Contact Guard Distance (ft): 355 Quality of gait: No gait deviations Exercises Exercises Upper Extremity: P&C exercises #'s 1-9, all 10x each Plan Continue acute PT per plan of care. Safety/Education Safety Safety Devices in place: call light within reach, left in chair, and nurse notified Restraints: No Education Education Given To: patient Education Provided: Home Exercise Program Education Method: Verbal, Demonstration, and Printed Information Barriers to Learning: Agitation Education Outcome: Verbalized Understanding and Demonstrated Understanding Outcome Measures AM-PAC AM-PAC Inpatient Mobility Raw Score : 18 AM-PAC Inpatient Mobility Raw Score (No Stairs) : 14 JH-HLM JH-HLM Scale: Walked 250 ft or more (i.e. several laps on unit) Goals Patient Stated Goal: To go home Encounter Problems Encounter Problems (Active) Cardiac Patient will perform bed mobility with independence in order to improve independence and prepare for out of bed mobility. (Not Addressed) Start: 01/30/25 Expected End: 02/13/25 Patient will complete sit to stand transfer with independence to none in order to improve safety and prepare for out of bed mobility. (Progressing) Start: 01/30/25 Expected End: 02/13/25 Patient will ambulate 300 feet or ambulate 5 minutes with modified independence with RPE of 14 or lower. (Progressing) Start: 01/30/25 Expected End: 02/13/25 Patient will ascend and descend 4 # stairs with modified independence rail for balance only. (Progressing) Start: 01/30/25 Expected End: 02/13/25 Patient will be independent with P&C exercises. (Progressing) Start: 01/30/25 Expected End: 02/13/25 Patient will be independent with managing secretions and home walking program. (Progressing) Start: 01/30/25 Expected End: 02/13/25 Therapy Time Individual Co-treatment Time In 1034 Time Out 1057 Minutes 23 Timed Code Treatment Minutes: 23 Minutes (Gt, TP) Shavon Jones OPERATIONS INSPECTOR Cosigned by Doreen Kerns PT at 02/02/2025 4:41 PM EDT Department of Internal Medicine Division of Endocrinology, Diabetes, & Metabolism Endocrinology Note Patient Name: Ryan Macedo : 1955 AGE: 69 y.o. 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 insulin CABGx3 Htn/hld/cad PLAN: -Increase lantus 17 -Humalog low SSI -Increase Humalog 6 meals-hold if npo -Do not plan on sending home on insulin, but will remain on insulin while inpatient ICU goal <180 GMF goal <150 POCT BG ACHS Hypoglycemia management per protocol Carb controlled diet ANTICIPATED ENDOCRINE HOME GOING RECOMMENDATIONS: Optimized for Discharge from Endocrine standpoint: No Home Going Endocrine Rx Recommendations-- TBD-Home regimen glimepiride, metformin, Ozempic Consider SGLT2 possibly Has home glucometer already Outpt Follow Up-- PCP SUBJECTIVE/HPI: CHIEF COMPLAINT: No chief complaint on file. S/p CABGx3 Noted hx of DM2 upon chart review, sees PCP for this. Not on insulin only oral medications No history of thyroid disease Interval 02/02 Appetite improving, no abd pain, n/v. at bedside. POC glucose and insulin administration for last 24h reviewed. Interval 02/01 Ate bkfast, no abd pain, n/v. at bedside. POC glucose and insulin administration for last 24h reviewed. Interval events -: BGL stable on insulin gtt 1.5/hr-plan to tx off Up awake VSS RA Walking in halls CT in place Ate small bfast- burundian toast No nv noted Spoke with team Family present BGL below Stable on insulin gtt 3/hr No A1c in chart or Care Everywhere order placed to check lab level add on No pressors are currently on Patient is awake alert extubated VSS RA Family in room Confirmed his home diabetes medication regimen, sees PCP for this He is already on a GLP-1, states he has never been on Jardiance or Farxiga before Has a home glucometer, states that his ranges between 80-100 recently, no noted lows Did have some nausea vomiting this morning, had a few bites of breakfast X 2 chest tubes are in place Spoke with team Type of DM: 2 Onset of DM: Over 25 years ago Home DM Medication Regimen: glimipiride 2 mg daily, metformin 500 mg tid (2 tabs a.m., 1 tab lunch, 2 tabs p.m.), ozempic 1 mg weekly on Wednesdays DM control (last A1c/glucose data): Lab Results Component Value Date HGBA1C 6.8 (H) 01/30/2025 Glucose Date/Time Value Ref Range Status 02/02/2025 07:43 AM 200 (H) 70 - 100 mg/dL Final 02/01/2025 04:49 PM 182 (H) 70 - 100 mg/dL Final 02/01/2025 11:45 AM 212 (H) 70 - 100 mg/dL Final 02/01/2025 07:53 AM 182 (H) 70 - 100 mg/dL Final 01/31/2025 06:22 PM 230 (H) 70 - 100 mg/dL Final 01/31/2025 12:20 PM 206 (H) 70 - 100 mg/dL Final Review of Systems ROS negative except for those mentioned in HPI. OBJECTIVE: Vitals: 02/02/25 0700 02/02/25 0800 02/02/25 0930 02/02/25 1000 BP: 145/87 145/76 128/65 112/61 BP Location: Right arm Patient Position: Sitting Pulse: 74 71 78 66 Resp: 20 Temp: 36.5 C (97.7 F) TempSrc: Temporal SpO2: 98% 97% 99% 97% Weight: Height: Physical Exam Vitals and nursing note reviewed. Constitutional: General: He is not in acute distress. Appearance: He is ill-appearing. He is not toxic-appearing or diaphoretic. HENT: Mouth/Throat: Mouth: Mucous membranes are moist. Cardiovascular: Rate and Rhythm: Normal rate. Pulmonary: Effort: Pulmonary effort is normal. Abdominal: Tenderness: There is no guarding. Musculoskeletal: Cervical back: Normal range of motion. Skin: General: Skin is warm and dry. Coloration: Skin is pale. Comments: Intact incision Neurological: Mental Status: He is oriented to person, place, and time. Mental status is at baseline. Psychiatric: Mood and Affect: Mood normal. Behavior: Behavior normal. 24 hour intake/output: Intake/Output Summary (Last 24 hours) at 02/02/2025 1024 Last data filed at 02/02/2025 0900 Gross per 24 hour Intake 747 ml Output 805 ml Net -58 ml Diet: Adult diet Regular; No Added Salt (3-4 gm); 5 carb choices (75 gm/meal) Medications (as per EMR): HomeMeds: Current Outpatient Medications Medication Instructions aspirin 81 mg, Daily cholecalciferol (VITAMIN D-3) 50 mcg, Daily coenzyme Q-10 100 mg, Daily dilTIAZem CD (CARDIZEM CD) 360 mg, Daily ezetimibe (ZETIA) 10 mg, Daily famotidine (PEPCID) 40 mg, Daily PRN glimepiride (AMARYL) 2 mg, Daily hydroCHLOROthiazide (HYDRODIURIL) 25 mg, Daily losartan (COZAAR) 100 mg, Daily metFORMIN (GLUCOPHAGE) 500 mg, 3 times daily with meals Multiple Vitamin (multivitamin) tablet 1 tablet, Daily mupirocin (Bactroban) 2 % ointment Using a q-tip, place small fingertip size amount into each nostril the night before surgery. Do not occlude nasal passage. Ozempic (1 MG/DOSE) 1 mg, Weekly Scheduled Meds:Scheduled Meds[1] Continuous Infusions:Continuous Meds[2] PRN Meds:PRN Meds[3] Diagnostic Workup: I reviewed pertinent Laboratory results, Radiographic results, and Other Clinical Notes at the time of today's encounter. Labs: No components found for: LABA1C No components found for: EAG Lab Results Component Value Date NA 138 02/02/2025 K 3.3 (L) 02/02/2025 CL 109 (H) 02/02/2025 CO2 22 (L) 02/02/2025 BUN 24 (H) 02/02/2025 CREATININE 0.95 02/02/2025 GLUCOSE 194 (H) 02/02/2025 CALCIUM 7.8 (L) 02/02/2025 No results found for: CHLPL, CHOL No results found for: TRIG No results found for: HDL No results found for: LDLCALC No results found for: VLDL No results found for: CHOLHDLRATIO No results found for: [id number] No results found for: TSH, K1DHYLW, P9JUROG, THYROIDAB Radiology reportsas per the Radiologist Radiology: Transesophageal echocardiogram (ANA M) with contrast and 3D PRN Result Date: 01/30/2025 Left Ventricle: Left ventricle size is normal. Mildly increased wall thickness. Low normal left ventricular systolic function. The EF by visual approximation is 50%. Normal wall motion. Right Ventricle: Right ventricle size is normal. Normal systolic function. Left Atrium: Windsock appendage. No left atrial appendage thrombus noted. No left atrial appendage mass noted. No significant valvular abnormalities. POCT glucose meter Result Date: 01/30/2025 Performed by: [address] [address] CLIA ID: [id number] POCT glucose meter Result Date: 01/30/2025 [facility]formed [facility]: [facility] [address] [address] CLIA ID: [id number] ECG 12 lead Sinus rhythm Lateral infarct, acute Borderline ST elevation, anterior leads POCT glucose meter Result Date: 01/30/2025 Performed by: [address] [address] CLIA ID: [id number] POCT glucose meter Result Date: 01/30/2025 Performed by: [address] [address] CLIA ID: [id number] XR chest 1 view Result Date: 01/30/2025 Patient Name: RYAN MACEDO : 1955 [facility]#: [id number] Exam Date/Time: 01/30/2025 05:12 Procedure: XR CHEST 1 VIEW Ordering Provider: SHEIKH ANDREW Reason For Exam: Shortness of breath CHEST - PORTABLE: CLINICAL INDICATION: Shortness of breath. TECHNIQUE: Portable AP COMPARISON: One day ago FINDINGS: Tubes, lines and devices: Right jugular venous catheter along with the mediastinal drain and chest tubes Heart/Mediastinum: Unchanged Lungs/Pleura: Atelectasis at the left lung base. No other consolidation or pneumothorax. Costophrenic angles are sharp. Tubes in adequate position. Left basilar atelectasis Report Dictated on Electronically Signed By: Edmundo Cordoba MD Electronically Signed Date/Time: 01/30/2025 6:18 AM EDT POCT glucose meter Result Date: 01/30/2025 Performed by: [facility], [address] [place] [address] CLIA ID: [id number] POCT glucose meter Result Date: 01/30/2025 Performed by: [facility], [address] [place] [address] CLIA ID: [id number] POCT glucose meter Result Date: 01/30/2025 Performed by: [facility], [address] [place] [address] CLIA ID: [id number] POCT glucose meter Result Date: 01/30/2025 Performed by: [facility] [place] [address] CLIA ID: [id number] POCT glucose meter Result Date: 01/30/2025 Performed by: [facility] [address] [address] CLIA ID: [id number] POCT glucose meter Result Date: 01/30/2025 Performed by: [facility], [address] [place] [address] CLIA ID: [id number] POCT glucose meter Result Date: 01/29/2025 Performed by: [facility] [place] [address] [address] CLIA ID: [id number] POCT glucose meter Result Date: 01/29/2025 Performed by: [address] [address] CLIA ID: [id number] POCT glucose meter Result Date: 01/29/2025 Performed by: [facility], [address] [place] [address] CLIA ID: [id number] XR chest 1 view Result Date: 01/29/2025 Patient Name: RYAN MACEDO : 1955 Exam Date/Time: 01/29/2025 20:00 Procedure: XR CHEST 1 VIEW Ordering Provider: YOUSSEF RYAN Reason For Exam: monitoring for PTX SINGLE FRONTAL VIEW OF THE CHEST CLINICAL INDICATION: monitoring for PTX TECHNIQUE: Single frontal view of the chest COMPARISON: Earlier today FINDINGS: Small right-sided pneumothorax not significantly changed. RIGHT central venous catheter tip in the SVC. Status post CABG. Bibasilar chest tubes. Mediastinal drain. LEFT basilar atelectasis. Mild cardiac enlargement. Scoliosis convex to the RIGHT. 1. Tubes and lines as described. Small right-sided pneumothorax not significantly different. LEFT basilar atelectasis. Report Dictated on Electronically Signed By: Tony Ziegler MD Electronically Signed Date/Time: 01/29/2025 8:54 PM EDT POCT glucose meter Result Date: 01/29/2025 Performed by: [address] [address] CLIA ID: [id number] POCT glucose meter Result Date: 01/29/2025 Performed by: [address] [address] CLIA ID: [id number] XR chest 1 view Result Date: 01/29/2025 Patient Name: RYAN MACEDO : 1955 Exam Date/Time: 01/29/2025 16:37 Procedure: XR CHEST 1 VIEW Ordering Provider: SHEIKH ANDREW Reason For Exam: Post op open heart surgery; ETT placement Gender: Male Age: 69 years History: Post op open heart surgery; ETT placement Exam: XR CHEST 1 VIEW COMPARISON: None. FINDINGS: The endotracheal tube tip is approximately 4 cm above the level of the scott. A right IJ vascular catheter tip overlies the superior vena cava. The endotracheal tube tip is below the hemidiaphragm but excluded from [id number]. A mediastinal drain and bilateral chest tubes are present. The trachea is midline. Median sternotomy wires and clips are present. The heart is not enlarged. A small right apical pneumothorax is present, likely postsurgical in etiology. There is no confluent consolidation or sizable pleural effusion. 1. Postsurgical changes (CABG). 2. Small right apical pneumothorax (likely postsurgical). Bilateral chest tubes and mediastinal drain present. 3. Support devices, as above.. Report Dictated on Electronically Signed By: Angela Arias MD Electronically Signed Date/Time: 01/29/2025 5:31 PM EDT POCT glucose meter Result Date: 01/29/2025 Performed by: [address] [address] CLIA ID: [id number] ECG 12 lead Sinus rhythm Borderline prolonged NV interval NS ST changes diffusely Electronically Signed On 01-29-2025 16:38:12 EDT by Lorne Staton POCT glucose meter Result Date: 01/29/2025 Performed by: [address] [address] CLIA ID: [id number] POCT glucose meter Result Date: 01/29/2025 Performed by: [address] [address] CLIA ID: [id number] History/Other: Past Medical History: Medical History[4] Past Surgical History: Surgical History[5] Allergy(ies): Allergies[6] Family History: Family History[7] Social History: Social History[8] Portions of the information within this encounter were entered using an electronic dictation system. Best attempts were made to edit/proofread the information prior to note completion. Despite the review of information, some errors may remain. If there are questions related to the information contained within the note please contact the signing physician directly. Total time spent 35 minutes with the pt which involved coordination of care, medical evaluation, review of records, and/or counseling of the pt regarding his/her condition/disease state/prognosis on the date of this note. [1] acetaminophen, 1,000 mg, Oral, q8h amiodarone, 400 mg, Oral, BID aspirin, 81 mg, Oral, Daily chlorhexidine, , Topical, Daily chlorhexidine, 15 mL, Mouth/Throat, BID enoxaparin, 40 mg, SubCUTAneous, Daily ezetimibe, 10 mg, Oral, Nightly furosemide, 40 mg, IntraVENous, Daily insulin glargine, 14 Units, SubCUTAneous, q AM insulin lispro, 0-6 Units, SubCUTAneous, TID WC insulin lispro, 5 Units, SubCUTAneous, TID WC Lidocaine, 1 patch, Topical, Daily magnesium hydroxide, 30 mL, Oral, Daily methocarbamol, 1,000 mg, Oral, 3 times per day metoprolol tartrate, 50 mg, Oral, BID pantoprazole, 40 mg, Oral, qAM AC polyethylene glycol (PEG) 3350, 17 g, Oral, Daily senna-docusate sodium, 2 tablet, Oral, Nightly sodium chloride 0.9%, 5-40 mL, IntraCATHeter, q8h [2] lactated ringers, 250 mL, Last Rate: Stopped (01/30/25 0254) [3] PRN medications: albumin human, calcium gluconate, dextrose, dextrose, glucagon (rDNA), glucose, HYDROmorphone OR HYDROmorphone, ipratropium-albuterol, lactated ringers, magnesium sulfate OR magnesium sulfate, naloxone, ondansetron ODT OR ondansetron, oxyCODONE OR oxyCODONE, potassium chloride OR potassium chloride OR potassium chloride, potassium chloride CR, prochlorperazine, sodium chloride 0.9% [4] Past Medical History: Diagnosis Date Diabetes mellitus (HCC) GERD (gastroesophageal reflux disease) Gout History of kidney stones Hyperlipidemia Hypertension Lumbar stenosis Osteoarthritis PONV (postoperative nausea and vomiting) [5] Past Surgical History: Procedure Laterality Date BACK SURGERY lumbar KNEE SURGERY Right arthroscopy for meniscus tear ROTATOR CUFF REPAIR Left [6] Allergies Allergen Reactions Enalapril Cough Rosuvastatin Other Reaction(s): fatigue Pravastatin Other Reaction(s): fatigue [7] Family History Problem Relation Name Age of Onset Diabetes Mother Coronary artery disease Father Melanoma Father Heart Surgery Father Coronary artery disease Brother [8] Social History Tobacco Use Smoking status: Never Smokeless tobacco: Never Vaping Use Vaping status: Never Used Substance Use Topics Alcohol use: Never Drug use: Never Images from the original note were not included. PHYSICAL THERAPY [facility] Treatment Note Name/MRN: Ryan Macedo ([id number]) Date of : 1955 Age: 69 y.o. Room/Bed: T1-121/T1-121 A Discharge Recommendation: Home with assist PRN, Home with Home health PT Equipment Needed: (TBD) Prior Level of Function Prior Level of ADL Function: Independent Prior Level of Mobility: Independent; Device: None Prior Level of Transfers: Independent Assessment Pt demonstrates increased gait distance and strength with transfers. Pt required Saroj for STS from EOB and required SBA for 355ft c Nezzie. Pt demonstrates good richa and safety awareness with sternal precautions. Pt would benefit from HHPT with PRN assist to increase strength and mobility with overall functional mobility. Subjective Pt sitting on EOB set up for ambulating with RN, pt agreeable to walking with PT. Pt very pleasant. Pain: RN managing pain. Medical Precautions: No active isolations Proper PPE donned/doffed in accordance with facility standards. Fall Risk: Staley Fall Risk Score: 60 (High Risk) Precautions/Restrictions: Sternal Precautions: No lifting greater than 10 lbs. Ok for modified UE precautions using Keep Your Move in the Tube technique Lines/Drains/Airways: x2 chest tubes, tele, on RA initially, R I.I triple lumen Overall Cognitive Status: WNL Overall Orientation Status: Oriented x4 Family/Caregiver Present: significant other Objective Bed Mobility Scooting: Contact Guard Transfers/Mobility Sit to stand: Min Assist Stand to sit: Min Assist Sitting balance: SBA Standing balance: SBA, Contact Guard Pt required 3 rocks for momentum to perform STS from EOB, pt required minimal assist at end of stand d/t post lean. Pt demonstrates good safety awareness with sternal precautions. Device(s) used: Nezzie Ambulation Ambulation 1 Assistive device(s) used: Nezzie Assist level: SBA Distance (ft): 355ft Quality of gait: narrow DEBBY Pt ambulated around unit with SBA, pt demonstrates kyphotic posture with positioning on Nezzie (attempted to increase julius height but unable). No standing rest breaks needed. Balance During Session: Posture: fair Sitting - Static: SBA Sitting - Dynamic: SBA Standing - Static: SBA Standing - Dynamic: Contact Guard Stairs Stairs 1 Assistive device(s) used: None Assist level: Supervision # of steps: 8 Rails: left Additional factors: reciprocal going up, reciprocal going down Pt required supervision for ascending and descending stairs. No LOB or SOB noted. Exercises Exercises Upper Extremity: P&C exercises reviewed, pt fatigue from ambulation. Comments: I.S. 500-750 mL Plan Continue acute PT per plan of care. Safety/Education Safety Safety Devices in place: All fall risk precautions in place, call light within reach, left in chair, and nurse notified Restraints: No Education Education Given To: patient Education Provided: PT Role, PT Goals, Gait Training, Home Exercise Program, Precautions, Transfer Training, Energy Conservation, Family Education, and Equipment Education Method: Verbal Barriers to Learning: None Education Outcome: Verbalized Understanding Outcome Measures AM-PAC AM-PAC Inpatient Mobility Raw Score : 18 AM-PAC Inpatient Mobility Raw Score (No Stairs) : 14 JH-HLM JH-HLM Scale: Walked 250 ft or more (i.e. several laps on unit) Goals Patient Stated Goal: To go home Encounter Problems Encounter Problems (Active) Cardiac Patient will perform bed mobility with independence in order to improve independence and prepare for out of bed mobility. (Not Addressed) Start: 01/30/25 Expected End: 02/13/25 Patient will complete sit to stand transfer with independence to none in order to improve safety and prepare for out of bed mobility. (Progressing) Start: 01/30/25 Expected End: 02/13/25 Patient will ambulate 300 feet or ambulate 5 minutes with modified independence with RPE of 14 or lower. (Progressing) Start: 01/30/25 Expected End: 02/13/25 Patient will ascend and descend 4 # stairs with modified independence rail for balance only. (Progressing) Start: 01/30/25 Expected End: 02/13/25 Patient will be independent with P&C exercises. (Progressing) Start: 01/30/25 Expected End: 02/13/25 Patient will be independent with managing secretions and home walking program. (Progressing) Start: 01/30/25 Expected End: 02/13/25 Therapy Time Individual Co-treatment Time In 1347 Time Out 1410 Minutes 23 Timed Code Treatment Minutes: 23 Minutes (gtx1 fax1) Dafne Alexander PTA Cosigned by Denton Cortés PT at 02/02/2025 7:31 AM EDT Department of Internal Medicine Division of Endocrinology, Diabetes, & Metabolism Endocrinology Note Patient Name: Ryan Macedo : 1955 AGE: 69 y.o. Room/Bed: [facility]/[address] Admission Date: 01/29/2025 Visit Date: 02/01/2025 Reason for Endocrine Consult: post heart Provider/Team Requesting Consult: cts PCP: MIRIAM GOMEZ Outpt Travel Assistant: No ASSESSMENT: Stress hyperglycemia DM2 with hyperglycemia without longterm insulin CABGx3 Htn/hld/cad PLAN: -Increase lantus 14 -Humalog low SSI -Increase Humalog 5 meals-hold if npo -Do not plan on sending home on insulin, but will remain on insulin while inpatient ICU goal <180 GMF goal <150 POCT BG ACHS Hypoglycemia management per protocol Carb controlled diet ANTICIPATED ENDOCRINE HOME GOING RECOMMENDATIONS: Optimized for Discharge from Endocrine standpoint: No Home Going Endocrine Rx Recommendations-- TBD-Home regimen glimepiride, metformin, Ozempic Consider SGLT2 possibly Has home glucometer already Outpt Follow Up-- PCP SUBJECTIVE/HPI: CHIEF COMPLAINT: No chief complaint on file. S/p CABGx3 Noted hx of DM2 upon chart review, sees PCP for this. Not on insulin only oral medications No history of thyroid disease Interval 02/01 Ate bkfast, no abd pain, n/v. at bedside. POC glucose and insulin administration for last 24h reviewed. Interval events -: BGL stable on insulin gtt 1.5/hr-plan to tx off Up awake VSS RA Walking in halls CT in place Ate small bfast- burundian toast No nv noted Spoke with team Family present BGL below Stable on insulin gtt 3/hr No A1c in chart or Care Everywhere order placed to check lab level add on No pressors are currently on Patient is awake alert extubated VSS RA Family in room Confirmed his home diabetes medication regimen, sees PCP for this He is already on a GLP-1, states he has never been on Jardiance or Farxiga before Has a home glucometer, states that his ranges between 80-100 recently, no noted lows Did have some nausea vomiting this morning, had a few bites of breakfast X 2 chest tubes are in place Spoke with team Type of DM: 2 Onset of DM: Over 25 years ago Home DM Medication Regimen: glimipiride 2 mg daily, metformin 500 mg tid (2 tabs a.m., 1 tab lunch, 2 tabs p.m.), ozempic 1 mg weekly on Wednesdays DM control (last A1c/glucose data): Lab Results Component Value Date HGBA1C 6.8 (H) 01/30/2025 Glucose Date/Time Value Ref Range Status 02/01/2025 07:53 AM 182 (H) 70 - 100 mg/dL Final 01/31/2025 06:22 PM 230 (H) 70 - 100 mg/dL Final 01/31/2025 12:20 PM 206 (H) 70 - 100 mg/dL Final 01/31/2025 11:10 AM 152 (H) 70 - 100 mg/dL Final 01/31/2025 10:06 AM 188 (H) 70 - 100 mg/dL Final 01/31/2025 09:12 AM 230 (H) 70 - 100 mg/dL Final Review of Systems ROS negative except for those mentioned in HPI. OBJECTIVE: Vitals: 02/01/25 0600 02/01/25 0700 02/01/25 0800 02/01/25 0844 BP: 139/71 142/74 106/70 (!) 130/107 Pulse: 69 71 78 78 Resp: Temp: TempSrc: SpO2: 93% 97% 99% Weight: 207 lb 3.7 oz (94 kg) Height: Physical Exam Vitals and nursing note reviewed. Constitutional: General: He is not in acute distress. Appearance: He is ill-appearing. He is not toxic-appearing or diaphoretic. HENT: Mouth/Throat: Mouth: Mucous membranes are moist. Cardiovascular: Rate and Rhythm: Normal rate. Pulmonary: Effort: Pulmonary effort is normal. Abdominal: Tenderness: There is no guarding. Musculoskeletal: Cervical back: Normal range of motion. Skin: General: Skin is warm and dry. Coloration: Skin is pale. Comments: Intact incision Neurological: Mental Status: He is oriented to person, place, and time. Mental status is at baseline. Psychiatric: Mood and Affect: Mood normal. Behavior: Behavior normal. 24 hour intake/output: Intake/Output Summary (Last 24 hours) at 02/01/2025 1031 Last data filed at 02/01/2025 1010 Gross per 24 hour Intake 505.73 ml Output 1335 ml Net -829.27 ml Diet: Adult diet Regular; No Added Salt (3-4 gm); 5 carb choices (75 gm/meal) Medications (as per EMR): HomeMeds: Current Outpatient Medications Medication Instructions aspirin 81 mg, Daily cholecalciferol (VITAMIN D-3) 50 mcg, Daily coenzyme Q-10 100 mg, Daily dilTIAZem CD (CARDIZEM CD) 360 mg, Daily ezetimibe (ZETIA) 10 mg, Daily famotidine (PEPCID) 40 mg, Daily PRN glimepiride (AMARYL) 2 mg, Daily hydroCHLOROthiazide (HYDRODIURIL) 25 mg, Daily losartan (COZAAR) 100 mg, Daily metFORMIN (GLUCOPHAGE) 500 mg, 3 times daily with meals Multiple Vitamin (multivitamin) tablet 1 tablet, Daily mupirocin (Bactroban) 2 % ointment Using a q-tip, place small fingertip size amount into each nostril the night before surgery. Do not occlude nasal passage. Ozempic (1 MG/DOSE) 1 mg, Weekly Scheduled Meds:Scheduled Meds[1] Continuous Infusions:Continuous Meds[2] PRN Meds:PRN Meds[3] Diagnostic Workup: I reviewed pertinent Laboratory results, Radiographic results, and Other Clinical Notes at the time of today's encounter. Labs: No components found for: LABA1C No components found for: EAG Lab Results Component Value Date NA 137 02/01/2025 K 3.0 (L) 02/01/2025 CL 111 (H) 02/01/2025 CO2 20 (L) 02/01/2025 BUN 18 02/01/2025 CREATININE 0.82 02/01/2025 GLUCOSE 190 (H) 02/01/2025 CALCIUM 7.2 (L) 02/01/2025 No results found for: CHLPL, CHOL No results found for: TRIG No results found for: HDL No results found for: LDLCALC No results found for: VLDL No results found for: CHOLHDLRATIO No results found for: WTJN60VTB No results found for: TSH, L3ZUDRU, I6ZPNEH, THYROIDAB Radiology reportsas per the Radiologist Radiology: Transesophageal echocardiogram (ANA M) with contrast and 3D PRN Result Date: 01/30/2025 Left Ventricle: Left ventricle size is normal. Mildly increased wall thickness. Low normal left ventricular systolic function. The EF by visual approximation is 50%. Normal wall motion. Right Ventricle: Right ventricle size is normal. Normal systolic function. Left Atrium: Windsock appendage. No left atrial appendage thrombus noted. No left atrial appendage mass noted. No significant valvular abnormalities. POCT glucose meter Result Date: 01/30/2025 Performed by: [address] [address] CLIA ID: [id number] POCT glucose meter Result Date: 01/30/2025 Performed by: [address] [address] CLIA ID: [id number] ECG 12 lead Sinus rhythm Lateral infarct, acute Borderline ST elevation, anterior leads POCT glucose meter Result Date: 01/30/2025 Performed by: [address] [address] CLIA ID: [id number] POCT glucose meter Result Date: 01/30/2025 Performed by: [address] [address] CLIA ID: [id number] XR chest 1 view Result Date: 01/30/2025 Patient Name: RYAN MACEDO : 1955 Exam Date/Time: 01/30/2025 05:12 Procedure: XR CHEST 1 VIEW Ordering Provider: SHEIKH ANDREW Reason For Exam: Shortness of breath CHEST - PORTABLE: CLINICAL INDICATION: Shortness of breath. TECHNIQUE: Portable AP COMPARISON: One day ago FINDINGS: Tubes, lines and devices: Right jugular venous catheter along with the mediastinal drain and chest tubes Heart/Mediastinum: Unchanged Lungs/Pleura: Atelectasis at the left lung base. No other consolidation or pneumothorax. Costophrenic angles are sharp. Tubes in adequate position. Left basilar atelectasis Report Dictated on Electronically Signed By: Edmundo Cordoba MD Electronically Signed Date/Time: 01/30/2025 6:18 AM EDT POCT glucose meter Result Date: 01/30/2025 Performed by: [facility], [address] [place] [address] CLIA ID: [id number] POCT glucose meter Result Date: 01/30/2025 Performed by: [facility], [address] [place] [address] CLIA ID: [id number] POCT glucose meter Result Date: 01/30/2025 Performed by: [facility], [address] [place], [place] [address] [place] [address] CLIA ID: [id number] POCT glucose meter Result Date: 01/30/2025 Performed by: [facility], [address] [place], [place] [address] [address] CLIA ID: [id number] POCT glucose meter Result Date: 01/30/2025 Performed by: [address] [place] [address] CLIA ID: [id number] POCT glucose meter Result Date: 01/30/2025 Performed by: [address] [place] [address] CLIA ID: [id number] POCT glucose meter Result Date: 01/29/2025 Performed by: [facility], [address] [place], [place] [address] [place] [address] CLIA ID: [id number] POCT glucose meter Result Date: 01/29/2025 Performed by: [facility], [address] [place], [place] [address] [place] [address] CLIA ID: [id number] POCT glucose meter Result Date: 01/29/2025 Performed by: [address] [address] CLIA ID: [id number] XR chest 1 view Result Date: 01/29/2025 Patient Name: RYAN MACEDO : 1955 Exam Date/Time: 01/29/2025 20:00 Procedure: XR CHEST 1 VIEW Ordering Provider: YOUSSEF RYAN Reason For Exam: monitoring for PTX SINGLE FRONTAL VIEW OF THE CHEST CLINICAL INDICATION: monitoring for PTX TECHNIQUE: Single frontal view of the chest COMPARISON: Earlier today FINDINGS: Small right-sided pneumothorax not significantly changed. RIGHT central venous catheter tip in the SVC. Status post CABG. Bibasilar chest tubes. Mediastinal drain. LEFT basilar atelectasis. Mild cardiac enlargement. Scoliosis convex to the RIGHT. 1. Tubes and lines as described. Small right-sided pneumothorax not significantly different. LEFT basilar atelectasis. Report Dictated on Electronically Signed By: Tony Ziegler MD Electronically Signed Date/Time: 01/29/2025 8:54 PM EDT POCT glucose meter Result Date: 01/29/2025 Performed by: [address] [address] CLIA ID: [id number] POCT glucose meter Result Date: 01/29/2025 Performed by: [address] [address] CLIA ID: [id number] XR chest 1 view Result Date: 01/29/2025 Patient Name: RYAN MACEDO : 1955 Exam Date/Time: 01/29/2025 16:37 Procedure: XR CHEST 1 VIEW Ordering Provider: SHEIKH ANDREW Reason For Exam: Post op open heart surgery; ETT placement Gender: Male Age: 69 years History: Post op open heart surgery; ETT placement Exam: XR CHEST 1 VIEW COMPARISON: None. FINDINGS: The endotracheal tube tip is approximately 4 cm above the level of the scott. A right IJ vascular catheter tip overlies the superior vena cava. The endotracheal tube tip is below the hemidiaphragm but excluded from [id number]. A mediastinal drain and bilateral chest tubes are present. The trachea is midline. Median sternotomy wires and clips are present. The heart is not enlarged. A small right apical pneumothorax is present, likely postsurgical in etiology. There is no confluent consolidation or sizable pleural effusion. 1. Postsurgical changes (CABG). 2. Small right apical pneumothorax (likely postsurgical). Bilateral chest tubes and mediastinal drain present. 3. Support devices, as above.. Report Dictated on Electronically Signed By: Angela Arias MD Electronically Signed Date/Time: 01/29/2025 5:31 PM EDT POCT glucose meter Result Date: 01/29/2025 Performed by: [facility], [address] [place] [address] CLIA ID: [id number] ECG 12 lead Sinus rhythm Borderline prolonged NV interval NS ST changes diffusely Electronically Signed On 01-29-2025 16:38:12 EDT by Lorne Staton POCT glucose meter Result Date: 01/29/2025 Performed by: [address] [address] CLIA ID: [id number] POCT glucose meter Result Date: 01/29/2025 Performed by: [address] [address] CLIA ID: [id number] History/Other: Past Medical History: Medical History[4] Past Surgical History: Surgical History[5] Allergy(ies): Allergies[6] Family History: Family History[7] Social History: Social History[8] Portions of the information within this encounter were entered using an electronic dictation system. Best attempts were made to edit/proofread the information prior to note completion. Despite the review of information, some errors may remain. If there are questions related to the information contained within the note please contact the signing physician directly. Total time spent 35 minutes with the pt which involved coordination of care, medical evaluation, review of records, and/or counseling of the pt regarding his/her condition/disease state/prognosis on the date of this note. [1] acetaminophen, 1,000 mg, Oral, q8h aspirin, 81 mg, Oral, Daily chlorhexidine, , Topical, Daily chlorhexidine, 15 mL, Mouth/Throat, BID enoxaparin, 40 mg, SubCUTAneous, Daily ezetimibe, 10 mg, Oral, Nightly insulin glargine, 12 Units, SubCUTAneous, q AM insulin lispro, 0-6 Units, SubCUTAneous, TID WC insulin lispro, 4 Units, SubCUTAneous, TID WC ketorolac, 15 mg, IntraVENous, q6h Lidocaine, 1 patch, Topical, Daily magnesium hydroxide, 30 mL, Oral, Daily methocarbamol, 1,000 mg, Oral, 3 times per day metoprolol tartrate, 25 mg, Oral, BID mupirocin, , Nasal, BID pantoprazole, 40 mg, Oral, qAM AC polyethylene glycol (PEG) 3350, 17 g, Oral, Daily senna-docusate sodium, 2 tablet, Oral, Nightly sodium chloride 0.9%, 5-40 mL, IntraCATHeter, q8h [2] amiodarone, 1 mg/min, Last Rate: 1 mg/min (02/01/25 0219) lactated ringers, 250 mL, Last Rate: Stopped (01/30/25 0254) sodium chloride, 20 mL/hr, Last Rate: 20 mL/hr (01/29/25 1730) [3] PRN medications: albumin human, calcium gluconate, dextrose, dextrose, glucagon (rDNA), glucose, HYDROmorphone OR HYDROmorphone, ipratropium-albuterol, lactated ringers, magnesium sulfate OR magnesium sulfate, naloxone, ondansetron ODT OR ondansetron, oxyCODONE OR oxyCODONE, potassium chloride OR potassium chloride OR potassium chloride, potassium chloride CR, prochlorperazine, sodium chloride 0.9% [4] Past Medical History: Diagnosis Date Diabetes mellitus (HCC) GERD (gastroesophageal reflux disease) Gout History of kidney stones Hyperlipidemia Hypertension Lumbar stenosis Osteoarthritis PONV (postoperative nausea and vomiting) [5] Past Surgical History: Procedure Laterality Date BACK SURGERY lumbar KNEE SURGERY Right arthroscopy for meniscus tear ROTATOR CUFF REPAIR Left [6] Allergies Allergen Reactions Enalapril Cough Rosuvastatin Other Reaction(s): fatigue Pravastatin Other Reaction(s): fatigue [7] Family History Problem Relation Name Age of Onset Diabetes Mother Coronary artery disease Father Melanoma Father Heart Surgery Father Coronary artery disease Brother [8] Social History Tobacco Use Smoking status: Never Smokeless tobacco: Never Vaping Use Vaping status: Never Used Substance Use Topics Alcohol use: Never Drug use: Never Images from the original note were not included. Cardiothoracic Surgery/CCM Progress Note PATIENT NAME: Ryan Macedo DATE: 02/01/25 HPI: 69 y.o.male with pmHx of GERD, HTN, HLD, OA, Gout and DM was seen in the OP setting by CTS for potential CABG. Initially patient underwent a stress test which was suggestive of ischemia at a moderate workload. He then underwent a cardiac cath which noted: MVCAD with severe disease involving the circumflex and RCA, moderately severe disease involving the LAD and mild LV systolic dysfunction. He consented and was taken to the operating room on 01/29/25 for CABG x [address] Herrera. Surgery/Procedure: 01/29/25- CABG x3 (FAIR-LAD, SVG-OM1, SVG-RPDA), LLE EVH with Dr. Herrera Interval History: 02/01/25, POD# 03: Afebrile, NSR on tele, BP stable, on RA. Afib yesterday AM, converted with amio, no re-occurrence. Pain in back this AM. Current IV Drips: Amio- 1mg/min Objective: CT output cc/24hrs: 570 UO cc/24hrs: 1650 Vitals: BP: 139/71, MAP (mmHg): 92, BP Method: Automatic Heart Rate: 69 Resp: 17 Temp: 36.5 C (97.7 F), Temp Source: Temporal BMI (Calculated): 25.24 BMP: Recent Labs 01/29/25 1521 01/29/25 1748 01/30/25 0021 01/31/25 0411 02/01/253 NA 143 < > 141 139 137 K 3.2* < > 3.9 3.5 3.0* CL 112* < > 112* 106 111* CO2 23 < > 24 24 20* BUN 19 < > 19 20 18 CREATININE 1.05 < > 1.03 1.06 0.82 CALCIUM 9.0 < > 8.4* 9.1 7.2* MG 2.7* < > 2.0 1.9 1.3* PHOS 2.4 -- -- -- -- < > = values in this interval not displayed. CBC: Recent Labs 01/30/25 0021 01/31/251 02/01/253 WBC 8.6 11.3* 8.8 HGB 8.9* 9.3* 8.4* HCT 26.9* 28.5* 25.2* PLT 151 170 153 MCV 92.8 95.3 94.4 RDW 12.5 13.0 12.9 INR: Recent Labs 01/29/25 1748 01/30/25 0021 01/31/25410 INR 1.3* 1.2* 1.2* Physical Exam Vitals reviewed. Constitutional: General: He is not in acute distress. Appearance: He is not ill-appearing or diaphoretic. Neck: Comments: Central line. Cardiovascular: Rate and Rhythm: Normal rate and regular rhythm. Pulses: Normal pulses. Heart sounds: No murmur heard. Pulmonary: Effort: Pulmonary effort is normal. Breath sounds: No wheezing, rhonchi or rales. Abdominal: General: There is no distension. Palpations: Abdomen is soft. Comments: Chest tubes. Musculoskeletal: General: Swelling present. Skin: General: Skin is warm and dry. Capillary Refill: Capillary refill takes less than 2 seconds. Findings: Bruising present. Comments: Surgical incisions well approximated. No redness, warmth or drainage noted. Neurological: General: No focal deficit present. Mental Status: He is alert and oriented to person, place, and time. Assessment: MVCAD s/p CABGx3 GERD HTN HLD OA DM Post operative Pulm Management: Normal Post-operative Course Post-operative Atrial Fibrillation: []Yes [x] No Acute blood loss anemia Plan: Patient status: PCU Continue aspirin and BB. -Increase BB to 50mg BID. Zetia, no statin. Transition to PO amio 400mg BID. -If re-occurrence of afib, will restart gtt. Lasix 40mg IV daily. Toradol 15mg q6h for 3 doses. Bowel regimen +MOM. Maintain chest tubes for today. Re-check BMP after electrolyte repletion. Daily labs and CXR. GI prophy: PO protonix DVT prophy:TEDs, SCDs, and Lovenox SubQ Pulmonary hygiene: IS and Acapella Consults: Endocrinology. PT/OT: Home with assist PRN (01/31/25) TCC/Discharge Planning: TBD. Central Line: [x]Yes [] No Arterial Line: []Yes [x] No Sanchez: []Yes [x] No Restraints: []Yes [x] No Patient discussed and plan of day developed from multidisciplinary rounds between Cardiothoracic Surgery (Cardiothoracic Surgeon, KIM) and Critical Care Attending A total of 20 minutes were spent between the ofwl-pe-xhmw encounter, physical exam, reviewing the medical history, coordinating the patient's care, counseling/educating the patient, ordering medications/test/procedures, interpreting results and documenting clinical information in the patients electronic health record on the day of the encounter. The patient was seen and examined. Cardiac Core Medications: ASA, BB, and No statin due to allergy EF: LVEF- 55% preop Blood Conservation: None noted in post-operative period Process Safety Management Engineer: [facility] Cosigned by Sunny Youssef DO at 02/01/2025 2:02 PM EDT Physician Response Please review the following and provide your response below. Please clarify which of the following accurately describes the patient's lab value: Acquired Hypofibrinogenemia This documentation will become part of the patient's medical record. Images from the original note were not included. PHYSICAL THERAPY [facility] Treatment Note Name/MRN: Ryan Macedo ([id number]) Date of : 1955 Age: 69 y.o. Room/Bed: T1-121/T1-121 A Discharge Recommendation: Home with assist PRN, Home with Home health PT Equipment Needed: (TBD) Prior Level of Function Prior Level of ADL Function: Independent Prior Level of Mobility: Independent; Device: None Prior Level of Transfers: Independent Assessment Pt was able to complete P&C exercises within his available range. No PT goals met this session. Recommend home with assist and HHPT at discharge. Subjective Pt is supine in the bed, agrees to PT for exercises only with encouragement. Declined mobility. Pain: Wick-Erickson Pain Ratin = Hurts whole lot Pain Location: chest/incision, but does not want pain meds Medical Precautions: No active isolations Proper PPE donned/doffed in accordance with facility standards. Fall Risk: Staley Fall Risk Score: 45 (High Risk) Precautions/Restrictions: Sternal Precautions: No lifting greater than 10 lbs. Ok for modified UE precautions using Keep Your Move in the Tube technique Lines/Drains/Airways: x2 chest tubes, sanchez, tele, on RA initially, R I.I triple lumen Overall Cognitive Status: WFL Overall Orientation Status: Oriented to Place and Oriented to Person Family/Caregiver Present: spouse Objective Exercises Exercises Upper Extremity: P&C exercises 1-9 x 6-8 reps each. limited shoulder flexion/ROM secomdary to previous injury Comments: I.S. 500-750 mL Plan Continue acute PT per plan of care. Safety/Education Safety Safety Devices in place: All fall risk precautions in place, call light within reach, left in bed, and no alarms engaged upon entry Restraints: No Education Education Given To: patient and spouse Education Provided: PT Role, PT Goals, Plan of Care, Precautions, and Discharge Recommendations Education Method: Verbal Barriers to Learning: None Education Outcome: Verbalized Understanding and Continued Education Needed Outcome Measures AM-PAC AM-PAC Inpatient Mobility Raw Score (No Stairs) : 14 JH-HLM JH-HLM Scale: Bed activity Goals Patient Stated Goal: To reduce pain and nausea and be Indep again Encounter Problems Encounter Problems (Active) Cardiac Patient will perform bed mobility with independence in order to improve independence and prepare for out of bed mobility. (Not Addressed) Start: 01/30/25 Expected End: 02/13/25 Patient will complete sit to stand transfer with independence to none in order to improve safety and prepare for out of bed mobility. (Not Addressed) Start: 01/30/25 Expected End: 02/13/25 Patient will ambulate 300 feet or ambulate 5 minutes with modified independence with RPE of 14 or lower. (Not Addressed) Start: 01/30/25 Expected End: 02/13/25 Patient will ascend and descend 4 # stairs with modified independence rail for balance only. (Not Addressed) Start: 01/30/25 Expected End: 02/13/25 Patient will be independent with P&C exercises. (Progressing) Start: 01/30/25 Expected End: 02/13/25 Patient will be independent with managing secretions and home walking program. (Progressing) Start: 01/30/25 Expected End: 02/13/25 Therapy Time Individual Co-treatment Time In 1439 Time Out 1452 Minutes 13 Timed Code Treatment Minutes: (TP) Miguelina Ortiz PTA Cosigned by Dany Olguin PT at 01/31/2025 3:25 PM EDT Department of Internal Medicine Division of Endocrinology, Diabetes, & Metabolism Endocrinology Note Patient Name: Ryan Macedo : 1955 AGE: 69 y.o. Room/Bed: T1-121/T1-121 A Admission Date: 01/29/2025 Visit Date: 01/31/2025 Reason for Endocrine Consult: post heart Provider/Team Requesting Consult: cts PCP: MIRIAM GOMEZ Outpt Travel Assistant: No ASSESSMENT: Stress hyperglycemia DM2 with hyperglycemia without exterminator termite insulin CABGx3 Htn/hld/cad PLAN: -Give lantus 12 x1 now- stop insulin gtt one hour -Start lantus 12 daily am- tomorrow -Humalog low SSI -Humalog meals-hold if npo -Do not plan on sending home on insulin, but will remain on insulin while inpatient ICU goal <180 GMF goal <150 POCT BG ACHS Hypoglycemia management per protocol Carb controlled diet ANTICIPATED ENDOCRINE HOME GOING RECOMMENDATIONS: Optimized for Discharge from Endocrine standpoint: No Home Going Endocrine Rx Recommendations-- TBD-Home regimen glimepiride, metformin, Ozempic Consider SGLT2 possibly Has home glucometer already Outpt Follow Up-- PCP SUBJECTIVE/HPI: CHIEF COMPLAINT: No chief complaint on file. S/p CABGx3 Noted hx of DM2 upon chart review, sees PCP for this. Not on insulin only oral medications No history of thyroid disease Interval events 01-31: BGL stable on insulin gtt 1.5/hr-plan to tx off Up awake VSS RA Walking in halls CT in place Ate small bfast- burundian toast No nv noted Spoke with team Family present BGL below Stable on insulin gtt 3/hr No A1c in chart or Care Everywhere order placed to check lab level add on No pressors are currently on Patient is awake alert extubated VSS RA Family in room Confirmed his home diabetes medication regimen, sees PCP for this He is already on a GLP-1, states he has never been on Jardiance or Farxiga before Has a home glucometer, states that his ranges between 80-100 recently, no noted lows Did have some nausea vomiting this morning, had a few bites of breakfast X 2 chest tubes are in place Spoke with team Type of DM: 2 Onset of DM: Over 25 years ago Home DM Medication Regimen: glimipiride 2 mg daily, metformin 500 mg tid (2 tabs a.m., 1 tab lunch, 2 tabs p.m.), ozempic 1 mg weekly on Wednesdays DM control (last A1c/glucose data): Lab Results Component Value Date HGBA1C 6.8 (H) 01/30/2025 Glucose Date/Time Value Ref Range Status 01/31/2025 09:12 AM 230 (H) 70 - 100 mg/dL Final 01/31/2025 08:09 AM 191 (H) 70 - 100 mg/dL Final 01/31/2025 06:07 AM 156 (H) 70 - 100 mg/dL Final 01/31/2025 04:22 AM 143 (H) 70 - 100 mg/dL Final 01/31/2025 01:55 AM 140 (H) 70 - 100 mg/dL Final 01/31/2025 12:14 AM 110 (H) 70 - 100 mg/dL Final Review of Systems ROS negative except for those mentioned in HPI. OBJECTIVE: Vitals: 01/31/25 0620 01/31/25 0700 01/31/25 0800 01/31/25 0810 BP: (!) 130/110 137/72 140/69 140/69 BP Location: Right arm Patient Position: Lying Pulse: 109 85 78 81 Resp: 16 18 18 Temp: 36.4 C (97.6 F) TempSrc: Temporal SpO2: 96% 93% 95% Weight: Height: Physical Exam Vitals and nursing note reviewed. Constitutional: General: He is not in acute distress. Appearance: He is ill-appearing. He is not toxic-appearing or diaphoretic. HENT: Mouth/Throat: Mouth: Mucous membranes are moist. Cardiovascular: Rate and Rhythm: Normal rate. Pulmonary: Effort: Pulmonary effort is normal. Abdominal: Tenderness: There is no guarding. Musculoskeletal: Cervical back: Normal range of motion. Skin: General: Skin is warm and dry. Coloration: Skin is pale. Comments: Intact incision Neurological: Mental Status: He is oriented to person, place, and time. Mental status is at baseline. Psychiatric: Mood and Affect: Mood normal. Behavior: Behavior normal. 24 hour intake/output: Intake/Output Summary (Last 24 hours) at 01/31/2025 0912 Last data filed at 01/31/2025 0630 Gross per 24 hour Intake 1041 ml Output 1120 ml Net -79 ml Diet: Adult diet Regular; No Added Salt (3-4 gm); 5 carb choices (75 gm/meal) Medications (as per EMR): HomeMeds: Current Outpatient Medications Medication Instructions aspirin 81 mg, Daily cholecalciferol (VITAMIN D-3) 50 mcg, Daily coenzyme Q-10 100 mg, Daily dilTIAZem CD (CARDIZEM CD) 360 mg, Daily ezetimibe (ZETIA) 10 mg, Daily famotidine (PEPCID) 40 mg, Daily PRN glimepiride (AMARYL) 2 mg, Daily hydroCHLOROthiazide (HYDRODIURIL) 25 mg, Daily losartan (COZAAR) 100 mg, Daily metFORMIN (GLUCOPHAGE) 500 mg, 3 times daily with meals Multiple Vitamin (multivitamin) tablet 1 tablet, Daily mupirocin (Bactroban) 2 % ointment Using a q-tip, place small fingertip size amount into each nostril the night before surgery. Do not occlude nasal passage. Ozempic (1 MG/DOSE) 1 mg, Weekly Scheduled Meds:Scheduled Meds[1] Continuous Infusions:Continuous Meds[2] PRN Meds:PRN Meds[3] Diagnostic Workup: I reviewed pertinent Laboratory results, Radiographic results, and Other Clinical Notes at the time of today's encounter. Labs: No components found for: LABA1C No components found for: EAG Lab Results Component Value Date NA 139 01/31/2025 K 3.5 01/31/2025 CL 106 01/31/2025 CO2 24 01/31/2025 BUN 20 01/31/2025 CREATININE 1.06 01/31/2025 GLUCOSE 124 (H) 01/31/2025 CALCIUM 9.1 01/31/2025 No results found for: CHLPL, CHOL No results found for: TRIG No results found for: HDL No results found for: LDLCALC No results found for: VLDL No results found for: CHOLHDLRATIO No results found for: DTLW92PMW No results found for: TSH, H7OSVQQ, K0MWOLX, THYROIDAB Radiology reportsas per the Radiologist Radiology: Transesophageal echocardiogram (ANA M) with contrast and 3D PRN Result Date: 01/30/2025 Left Ventricle: Left ventricle size is normal. Mildly increased wall thickness. Low normal left ventricular systolic function. The EF by visual approximation is 50%. Normal wall motion. Right Ventricle: Right ventricle size is normal. Normal systolic function. Left Atrium: Windsock appendage. No left atrial appendage thrombus noted. No left atrial appendage mass noted. No significant valvular abnormalities. POCT glucose meter Result Date: 01/30/2025 Performed by: [facility] [address] [address] CLIA ID: [id number] POCT glucose meter Result Date: 01/30/2025 Performed by: [facility] [address] [address] CLIA ID: [id number] ECG 12 lead Sinus rhythm Lateral infarct, acute Borderline ST elevation, anterior leads POCT glucose meter Result Date: 01/30/2025 Performed by: [facility], [address] [place] [address] [place] [address] CLIA ID: [id number] POCT glucose meter Result Date: 01/30/2025 Performed by: [facility], [address] [place] [address] CLIA ID: [id number] XR chest 1 view Result Date: 01/30/2025 Patient Name: RYAN MACEDO : 1955 [facility]#: [id number] Exam Date/Time: 01/30/2025 05:12 Procedure: XR CHEST 1 VIEW Ordering Provider: SHEIKH ANDREW Reason For Exam: Shortness of breath CHEST - PORTABLE: CLINICAL INDICATION: Shortness of breath. TECHNIQUE: Portable AP COMPARISON: One day ago FINDINGS: Tubes, lines and devices: Right jugular venous catheter along with the mediastinal drain and chest tubes Heart/Mediastinum: Unchanged Lungs/Pleura: Atelectasis at the left lung base. No other consolidation or pneumothorax. Costophrenic angles are sharp. Tubes in adequate position. Left basilar atelectasis Report Dictated on Electronically Signed By: Edmundo Cordoba MD Electronically Signed Date/Time: 01/30/2025 6:18 AM EDT POCT glucose meter Result Date: 01/30/2025 Performed by: [facility], [address] [place] [id number] CLIA ID: [id number] POCT glucose meter Result Date: 01/30/2025 Performed by: [address] [address] CLIA ID: [id number] POCT glucose meter Result Date: 01/30/2025 Performed by: [address] [address] CLIA ID: [id number] POCT glucose meter Result Date: 01/30/2025 Performed by: [address] [place] [address] CLIA ID: [id number] POCT glucose meter Result Date: 01/30/2025 Performed by: [address] [address] CLIA ID: [id number] POCT glucose meter Result Date: 01/30/2025 Performed by: [facility], [address] [place] [address], [facility] [id number] CLIA ID: [id number] POCT glucose meter Result Date: 01/29/2025 Performed by: [facility], [address] [place] [address], [facility] [id number] CLIA ID: [id number] POCT glucose meter Result Date: 01/29/2025 Performed by: [facility], [address] [place] [address], [facility] [address] CLIA ID: [id number] POCT glucose meter Result Date: 01/29/2025 Performed by: [facility], [address] [place] [address], [facility] [id number] CLIA ID: [id number] XR chest 1 view Result Date: 01/29/2025 [facility] Name[facility] : 1955 [id number] Exam Date/Time: 01/29/2025 20:00 Procedure: XR CHEST 1 VIEW Ordering Provider: YOUSSEF RYAN Reason For Exam: monitoring for PTX SINGLE FRONTAL VIEW OF THE CHEST CLINICAL INDICATION: monitoring for PTX TECHNIQUE: Single frontal view of the chest COMPARISON: Earlier today FINDINGS: Small right-sided pneumothorax not significantly changed. RIGHT central venous catheter tip in the SVC. Status post CABG. Bibasilar chest tubes. Mediastinal drain. LEFT basilar atelectasis. Mild cardiac enlargement. Scoliosis convex to the RIGHT. 1. Tubes and lines as described. Small right-sided pneumothorax not significantly different. LEFT basilar atelectasis. Report Dictated on Electronically Signed By: Tony Ziegler MD Electronically Signed Date/Time: 01/29/2025 8:54 PM EDT POCT glucose meter Result Date: 01/29/2025 Performed by: [address] [address] CLIA ID: [id number] POCT glucose meter Result Date: 01/29/2025 Performed by: [address] [address] CLIA ID: [id number] XR chest 1 view Result Date: 01/29/2025 Patient Name: RYAN MACEDO : 1955 [facility]#: [id number] Exam Date/Time: 01/29/2025 16:37 Procedure: XR CHEST 1 VIEW Ordering Provider: SHEIKH ANDREW Reason For Exam: Post op open heart surgery; ETT placement Gender: Male Age: 69 years History: Post op open heart surgery; ETT placement Exam: XR CHEST 1 VIEW COMPARISON: None. FINDINGS: The endotracheal tube tip is approximately 4 cm above the level of the scott. A right IJ vascular catheter tip overlies the superior vena cava. The endotracheal tube tip is below the hemidiaphragm but excluded from [id number]. A mediastinal drain and bilateral chest tubes are present. The trachea is midline. Median sternotomy wires and clips are present. The heart is not enlarged. A small right apical pneumothorax is present, likely postsurgical in etiology. There is no confluent consolidation or sizable pleural effusion. 1. Postsurgical changes (CABG). 2. Small right apical pneumothorax (likely postsurgical). Bilateral chest tubes and mediastinal drain present. 3. Support devices, as above.. Report Dictated on Electronically Signed By: Angela Arias MD Electronically Signed Date/Time: 01/29/2025 5:31 PM EDT POCT glucose meter Result Date: 01/29/2025 [facility] [address] [address] CLIA ID: [id number] ECG 12 lead Sinus rhythm Borderline prolonged NV interval NS ST changes diffusely Electronically Signed On 01-29-2025 16:38:12 EDT by Lorne Staton POCT glucose meter Result Date: 01/29/2025 [facility] [address] [address] CLIA ID: [id number] POCT glucose meter Result Date: 01/29/2025 Performed by: [address] [address] CLIA ID: [id number] History/Other: Past Medical History: Medical History[4] Past Surgical History: Surgical History[5] Allergy(ies): Allergies[6] Family History: Family History[7] Social History: Social History[8] Portions of the information within this encounter were entered using an electronic dictation system. Best attempts were made to edit/proofread the information prior to note completion. Despite the review of information, some errors may remain. If there are questions related to the information contained within the note please contact the signing physician directly. I spent 35 minutes with the pt which involved coordination of care, medical evaluation, review of records, and/or counseling of the pt regarding his/her condition/disease state/prognosis on the date of this note. [1] acetaminophen, 1,000 mg, Oral, q8h aspirin, 81 mg, Oral, Daily chlorhexidine, , Topical, Daily chlorhexidine, 15 mL, Mouth/Throat, BID enoxaparin, 40 mg, SubCUTAneous, Daily ezetimibe, 10 mg, Oral, Nightly Lidocaine, 1 patch, Topical, Daily methocarbamol, 1,000 mg, Oral, 3 times per day metoprolol tartrate, 25 mg, Oral, BID mupirocin, , Nasal, BID pantoprazole, 40 mg, Oral, qAM AC polyethylene glycol (PEG) 3350, 17 g, Oral, Daily senna-docusate sodium, 2 tablet, Oral, Nightly sodium chloride 0.9%, 5-40 mL, IntraCATHeter, q8h [2] amiodarone, 1 mg/min, Last Rate: 1 mg/min (01/31/25 0635) insulin regular, 0.5-50 Units/hr, Last Rate: 1.5 Units/hr (01/31/25 0819) lactated ringers, 250 mL, Last Rate: Stopped (01/30/25 0254) sodium chloride, 20 mL/hr, Last Rate: 20 mL/hr (01/29/25 1730) [3] PRN medications: albumin human, calcium gluconate, dextrose, dextrose, glucagon (rDNA), glucose, HYDROmorphone OR HYDROmorphone, ipratropium-albuterol, lactated ringers, magnesium hydroxide, magnesium sulfate OR magnesium sulfate, naloxone, ondansetron ODT OR ondansetron, oxyCODONE OR oxyCODONE, potassium chloride OR potassium chloride OR potassium chloride, potassium chloride CR, prochlorperazine, sodium chloride 0.9% [4] Past Medical History: Diagnosis Date Diabetes mellitus (HCC) GERD (gastroesophageal reflux disease) Gout History of kidney stones Hyperlipidemia Hypertension Lumbar stenosis Osteoarthritis PONV (postoperative nausea and vomiting) [5] Past Surgical History: Procedure Laterality Date BACK SURGERY lumbar KNEE SURGERY Right arthroscopy for meniscus tear ROTATOR CUFF REPAIR Left [6] Allergies Allergen Reactions Enalapril Cough Rosuvastatin Other Reaction(s): fatigue Pravastatin Other Reaction(s): fatigue [7] Family History Problem Relation Name Age of Onset Diabetes Mother Coronary artery disease Father Melanoma Father Heart Surgery Father Coronary artery disease Brother [8] Social History Tobacco Use Smoking status: Never Smokeless tobacco: Never Vaping Use Vaping status: Never Used Substance Use Topics Alcohol use: Never Drug use: Never Images from the original note were not included. Cardiothoracic Surgery/[facility] Progress Note PATIENT NAME: Ryan Macedo DATE: 01/31/25 HPI: 69 y.o.male with pmHx of GERD, HTN, HLD, OA, Gout and DM was seen in the OP setting by CTS for potential CABG. Initially patient underwent a stress test which was suggestive of ischemia at a moderate workload. He then underwent a cardiac cath which noted: MVCAD with severe disease involving the circumflex and RCA, moderately severe disease involving the LAD and mild LV systolic dysfunction. He consented and was taken to the operating room on 01/29/25 for CABG x [address] Herrera. Surgery/Procedure: 01/29/25- CABG x3 (FAIR-LAD, SVG-OM1, SVG-RPDA), E EV with Dr. Herrera Interval History: 01/31/25, POD# 2: In Afib RVR this am. Other VSS, afebrile, on RA. Resting in bed, states he was up to the chair from 2-5am. Nausea has improved. Review of Systems Constitutional: Positive for activity change, appetite change and fatigue. Negative for diaphoresis and fever. Respiratory: Negative for cough, shortness of breath and wheezing. Cardiovascular: Negative for chest pain, palpitations and leg swelling. Gastrointestinal: Positive for nausea and vomiting. Negative for abdominal distention and abdominal pain. Skin: Negative for color change, pallor and rash. Objective: CT output cc/24hrs: 620 mL UO cc/24hrs: 708 mL Vitals: BP: 132/67, MAP (mmHg): 86, BP Method: Automatic Heart Rate: 104 Resp: 19 Temp: 36.2 C (97.2 F), Temp Source: Temporal BMI (Calculated): 26.77 CXR: BMP: Recent Labs 01/29/25 1521 01/29/258 01/30/25 0021 01/31/25 0411 NA 143 143 141 139 K 3.2* 3.1* 3.9 3.5 CL 112* 109* 112* 106 CO2 23 23 24 24 BUN 19 20 19 20 CREATININE 1.05 1.12 1.03 1.06 CALCIUM 9.0 8.7* 8.4* 9.1 MG 2.7* 2.1 2.0 1.9 PHOS 2.4 -- -- -- CBC: Recent Labs 01/29/25174701/30/25 0021 01/31/25 0411 WBC 9.8 8.6 11.3* HGB 9.6* 8.9* 9.3* HCT 29.2* 26.9* 28.5* PLT 164 151 170 MCV 95.1 92.8 95.3 RDW 12.5 12.5 13.0 INR: Recent Labs 01/29/25174701/30/25 0021 01/31/25 0411 INR 1.3* 1.2* 1.2* Physical Exam Cardiovascular: Rate and Rhythm: Tachycardia present. Rhythm irregular. Heart sounds: No murmur heard. Friction rub present. Pulmonary: Effort: Pulmonary effort is normal. Breath sounds: No decreased breath sounds, wheezing or rhonchi. Abdominal: General: Bowel sounds are normal. Palpations: Abdomen is soft. Tenderness: There is no abdominal tenderness. Genitourinary: Comments: Sanchez catheter to straight drain Musculoskeletal: Right lower leg: No edema. Left lower leg: No edema. Skin: General: Skin is warm and dry. Capillary Refill: Capillary refill takes less than 2 seconds. Findings: Bruising and ecchymosis present. Comments: Surgical Incisions: well approximate; clean dry with no drainage noted. Surrounding skin no redness, warmth, or signs of infection noted. Neurological: Mental Status: He is alert. Psychiatric: Behavior: Behavior is cooperative. Assessment: MVCAD s/p CABGx3 GERD HTN HLD OA DM Post operative Pulm Management: Normal Post-operative Course Post-operative Atrial Fibrillation: []Yes [x] No Acute blood loss anemia Plan: Patient status: tele Medications: ASA/Zetia BB- increased Metoprolol 25mg BID Amio bolus/gtt Lasix 40mg IVP x1 Bowel regimen: Miralax, senna GI prophy: PO protonix DVT prophy:TEDs, SCDs, and Lovenox SubQ Interventions: D/C sanchez Encourage progressive mobility Pulmonary hygiene: IS and Acapella Consults: Endocrine following for insulin management PT/OT: needs assessment TCC/Discharge Planning TBD Central Line: [x]Yes [] No Arterial Line: []Yes [x] No Sanchez: [x]Yes [] No Restraints: []Yes [x] No Patient discussed and plan of day developed from multidisciplinary rounds between Cardiothoracic Surgery (Cardiothoracic Surgeon, KIM) and Critical Care Attending Tele Status A total of 33 minutes were spent between the [id number] encounter, physical exam, reviewing the medical history, coordinating the patient's care, counseling/educating the patient, ordering medications/test/procedures, interpreting results and documenting clinical information in the patients electronic health record on the day of the encounter. The patient was seen and examined Cardiac Core Medications: ASA, BB, and No statin due to allergy EF: LVEF- 55% preop Blood Conservation: None noted in post-operative period Process Safety Management Engineer: [facility] Cosigned by Sunny Youssef DO at 01/31/2025 6:49 PM EDT Images from the original note were not included. PHYSICAL THERAPY [facility] Initial Evaluation Name/MRN: Ryan Macedo ([id number]) Evaluation Date: 01/30/2025 Date of : 1955 Admission Date: 01/29/2025 9:13 AM Age: 69 y.o. Room/Bed: T1-121/T1-121 A Discharge Recommendation: Home with assist PRN, Home with Home health PT Equipment Needed: No Assessment IMPRESSION: Pt is s/p CABG x 3 on 01/30/24. He is currently Min assist for transfers and ambulation with the [employer]ent[employer] cart. Limited d/t fatigue, nausea and SOB. He is Indep at baseline and lives at home with his . Anticipate he will progress throughout LOS to return to home with assist from family and home health PT. Admitting Diagnosis: CAD in [place] artery. S/p CABG x 3 01/29/25 Prognosis: good Performance Deficits /Impairments: Increased Pain, Decreased Functional Mobility, Decreased ADL status, Decreased Endurance, Decreased Balance, and Decreased High Level IADLs Decision Making: Medium Complexity Subjective RN OK with PT to see pt. Pt in the recliner and agreeable to PT. Wishing to lie back down soon. Reported feeling nauseas this morning but does not think he is throwing up anymore. Pain: RN managing pain. Wick-Erickson Pain Ratin = Hurts even more Pain Location: Sternum/ chest tube Past Medical History: Medical History[1] Past Surgical History: Surgical History[2] Admission Diagnosis: Patient Active Problem List Diagnosis Date Noted CAD in [place] artery 01/29/2025 Medical Precautions: No active isolations Proper PPE donned/doffed in accordance with facility standards. Fall Risk: Staley Fall Risk Score: 45 (High Risk) Precautions/Restrictions: Sternal Precautions: No lifting greater than 10 lbs. Ok for modified UE precautions using Keep Your Move in the Tube technique Lines/Drains/Airways: x2 chest tubes, sanchez, tele, on RA initially, R I.I triple lumen Family/Caregiver Present: none Overall Cognitive Status: WNL Overall Orientation Status: Oriented x4 Vision: Not Assessed Hearing: normal Social/Functional History Patient admitted from home. 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: Yes Prior Level of Function Prior Level of ADL Function: Independent Prior Level of Mobility: Independent; Device: None Prior Level of Transfers: Independent Objective Lower Extremity Assessment AROM: WNL PROM: Not assessed this session Strength: WFL Sensation: Not assessed this session Balance: Balance During Session: Posture: good Sitting - Static: Independent Sitting - Dynamic: SBA Standing - Static: Contact Guard Standing - Dynamic: Min Assist- only tolerated standing approx 1 minute with nausea and fatigue Bed Mobility: Sit to supine: Max Assist, x2 Person Assist Increased assist to return to bed d/t pain. Transfers Sit to stand: Min Assist Stand to sit: Min Assist Ambulation Ambulation 1 Assistive device(s) used: Talentoday Assist level: Min Assist Distance (ft): 10 ft around the bed Quality of gait: slow richa, pt reported feeling more fatigued and light headed with nausea. Returned pt to sitting EOB. Pt declined further activity. SpO2 88% on RA after walking, briefly donned 3L/min O2 for recovery but then able to wean back to RA with some seated rest. Outcome Measures AM-PAC How much HELP from another person do you currently need Turning from your back to your side while in a flat bed without using bedrails?: A Little Moving from lying on your back to sitting on the side of a flat bed without using bedrails?: A Lot Moving to and from a bed to a chair (including a wheelchair)?: A Little Standing up from a chair using your arms (wheelchair or bedside chair)?: A Little Walking in a hospital room?: A Little Stair climbing assessed?: No AM-PAC Inpatient Mobility Raw Score (No Stairs) : 14 JH-HLM JH-HLM Scale: Walked 10 steps or more (i.e. walked to restroom) Plan Pt would benefit from skilled acute PT services to address Strengthening, ROM, Gait Training, Balance Training, Self-Care/ADL Training, Functional Mobility Training, Endurance Training, Stair Training, and Positioning. Frequency: 5x/weekfor 2 weeks Barriers: Pain, Impaired balance, Decreased endurance, New weightbearing/ROM restrictions, and Medical complications Safety/Education Safety Safety Devices in place: call light within reach, left in bed, patient at risk for falls, and Left in room with RN Restraints: No Education Education Given To: patient Education Provided: PT Role, PT Goals, Gait Training, Plan of Care, Home Exercise Program, Precautions, Transfer Training, Discharge Recommendations, Benefits of Increasing Activity, and Breathing Techniques Education Method: Verbal and Demonstration Barriers to Learning: None Education Outcome: Verbalized Understanding What to expect after heart surgery booklet with P&C's. Sternal precautions. Use of IS hourly. Ambulating 3-4x daily. Discharge planning. Goals Patient Stated Goal: To reduce pain and nausea and be Indep again Encounter Problems Encounter Problems (Active) Cardiac Patient will perform bed mobility with independence in order to improve independence and prepare for out of bed mobility. Start: 01/30/25 Expected End: 02/13/25 Patient will complete sit to stand transfer with independence to none in order to improve safety and prepare for out of bed mobility. Start: 01/30/25 Expected End: 02/13/25 Patient will ambulate 300 feet or ambulate 5 minutes with modified independence with RPE of 14 or lower. Start: 01/30/25 Expected End: 02/13/25 Patient will ascend and descend 4 # stairs with modified independence rail for balance only. Start: 01/30/25 Expected End: 02/13/25 Patient will be independent with P&C exercises. Start: 01/30/25 Expected End: 02/13/25 Patient will be independent with managing secretions and home walking program. Start: 01/30/25 Expected End: 02/13/25 Therapy Time Individual Co-Treatment Co-Evaluation Time In 0845 Time Out 0906 Minutes 21 Doreen Kerns PT Patient's Physical Therapy Plan of Care supervision is transferred to a [facility] Therapy Services Physical Therapist. Goals and/or treatment plan was established in collaboration with patient/family/other representatives. [1] Past Medical History: Diagnosis Date Diabetes mellitus (HCC) GERD (gastroesophageal reflux disease) Gout History of kidney stones Hyperlipidemia Hypertension Lumbar stenosis Osteoarthritis PONV (postoperative nausea and vomiting) [2] Past Surgical History: Procedure Laterality Date BACK SURGERY lumbar KNEE SURGERY Right arthroscopy for meniscus tear ROTATOR CUFF REPAIR Left Images from the original note were not included. OCCUPATIONAL THERAPY [facility] Name/MRN: Ryan Macedo ([id number]) Date: 01/30/2025 Evaluation is being deferred at present because pt states he just worked with PT and is politely declining OT eval due to fatigue . Pt agreeable to OT eval at a later date. Will continue to assess. Fam Dorsey OT Images from the original note were not included. Cardiothoracic Surgery/[facility] Progress Note PATIENT NAME: Ryan Macedo DATE: 01/30/25 HPI: 69 y.o.male with pmHx of GERD, HTN, HLD, OA, Gout and DM was seen in the OP setting by CTS for potential CABG. Initially patient underwent a stress test which was suggestive of ischemia at a moderate workload. He then underwent a cardiac cath which noted: MVCAD with severe disease involving the circumflex and RCA, moderately severe disease involving the LAD and mild LV systolic dysfunction. He consented and was taken to the operating room on 01/29/25 for CABG x [address] Herrera. Surgery/Procedure: 01/29/25- CABG x3 (FAIR-LAD, SVG-OM1, SVG-RPDA), LLE [facility] with Dr. Herrera Interval History: 01/30/25, POD# 1: VSS, no pressors overnight. Afebrile, NSR on tele, on 1L NC. Resting in chair, having nausea and vomiting episode x2 overnight. He reports issues with N/V after previous surgeries. Review of Systems Constitutional: Positive for activity change, appetite change and fatigue. Negative for diaphoresis and fever. Respiratory: Negative for cough, shortness of breath and wheezing. Cardiovascular: Negative for chest pain, palpitations and leg swelling. Gastrointestinal: Positive for nausea and vomiting. Negative for abdominal distention and abdominal pain. Skin: Negative for color change, pallor and rash. Objective: CT output cc/24hrs: 580 mL UO cc/24hrs: 2,235 mL Vitals: BP: 138/75, MAP (mmHg): 93, BP Method: Arterial line Heart Rate: 82 Resp: 18 Temp: 36.6 C (97.8 F), Temp Source: Axillary BMI (Calculated): 25.02 CXR: BMP: Recent Labs 01/29/25 1521 01/29/25 1748 01/30/25 0021 NA 143 143 141 K 3.2* 3.1* 3.9 CL 112* 109* 112* CO2 23 23 24 BUN 19 20 19 CREATININE 1.05 1.12 1.03 CALCIUM 9.0 8.7* 8.4* MG 2.7* 2.1 2.0 PHOS 2.4 -- -- CBC: Recent Labs 01/29/25 1521 01/29/25 1748 01/30/25 0021 WBC 7.6 9.8 8.6 HGB 8.3 8.0* 9.6* 8.9* HCT 23.9* 29.2* 26.9* PLT 169 164 151 MCV 93.4 95.1 92.8 RDW 12.5 12.5 12.5 INR: Recent Labs 01/29/25 1521 01/29/25 1748 01/30/25 0021 INR 1.6* 1.3* 1.2* Physical Exam Cardiovascular: Rate and Rhythm: Normal rate and regular rhythm. Heart sounds: No murmur heard. Friction rub present. Pulmonary: Effort: Pulmonary effort is normal. Breath sounds: No decreased breath sounds, wheezing or rhonchi. Abdominal: General: Bowel sounds are decreased. Palpations: Abdomen is soft. Tenderness: There is no abdominal tenderness. Genitourinary: Comments: Sanchez catheter to straight drain Musculoskeletal: Right lower leg: No edema. Left lower leg: No edema. Skin: General: Skin is warm and dry. Capillary Refill: Capillary refill takes less than 2 seconds. Findings: Bruising and ecchymosis present. Comments: Surgical Incisions: well approximate; clean dry with no drainage noted. Surrounding skin no redness, warmth, or signs of infection noted. Neurological: Mental Status: He is alert. Psychiatric: Behavior: Behavior is cooperative. Assessment: MVCAD s/p CABGx3 GERD HTN HLD OA DM Post operative Pulm Management: Normal Post-operative Course Post-operative Atrial Fibrillation: []Yes [x] No Acute blood loss anemia Plan: Patient status: ICU Medications: ASA/Zetia BB- Metoprolol 12.5mg BID Bowel regimen: Miralax, senna GI prophy: PO protonix DVT prophy:TEDs, SCDs, and Lovenox SubQ Interventions: D/C Lisa & sanchez Encourage progressive mobility Pulmonary hygiene: IS and Acapella Consults: Endocrine following for insulin management PT/OT: needs assessment TCC/Discharge Planning TBD Central Line: [x]Yes [] No Arterial Line: [x]Yes [] No Sanchez: [x]Yes [] No Restraints: []Yes [x] No Patient discussed and plan of day developed from multidisciplinary rounds between Cardiothoracic Surgery (Cardiothoracic Surgeon, KIM) and Critical Care Attending Critical Care time spent 35 minutes. The time involved in the performance of this care was exclusive of separately billable procedures, teaching time and treating other patients. The time was spent personally by myself for the following activities: examination of the patient, ordering and/or performing treatment, reviewing the laboratory and radiographic studies, and if applicable, ventilator management and blood gas interpretation. Cardiac Core Medications: ASA, BB, and No statin due to allergy EF: LVEF- 55% preop Blood Conservation: None noted in post-operative period Process Safety Management Engineer: [facility] Cosigned by Sunny Youssef DO at 01/30/2025 10:12 AM EDT Associated attestation - Sunny Youssef DO - 01/30/2025 10:12 AM EDT Images from the original note were not included. I have personally performed a baqw-on-[id number] diagnostic evaluation on this patient on date of service 01/30/25. History, labs, imaging studies, and electronic medical record have been reviewed by me. This note documented by the []Critical Care Fellow []store warehouse associate [x]KIM reflects my history, exam, and medical decision making. I have reviewed and agree with the care plan. Changes were made in the orders as necessary. ROS documentation was reviewed and negative unless otherwise stated in HPI. Additional pertinent interval history, ROS, and physical exam findings: AdmitDate = 01/29/2025 LOS: 1 No chief complaint on file. ON Event(s): No Glucose at goal on insulin gtt. 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 T2DM with stress hyperglyemia HTN Gerd Plan: Agree with plan in KIM note. Disposition: Unchanged. Critical Care Time: 25min Or Noncritical Care Time: n/a Total time caring for this patient including direct patient contact, review of data including imaging and labs, discussions with other team members and physicians, excluding procedures. Electronically signed by Sunny Youssef DO [facility] Respiratory Care Department Progress Note Spontaneous Awakening Trial Wean Screen Safety Screen Spontaneous Breathing Trial (SBT - RT) : Proceed with SBT - No exclusion criteria met (01/29/251727) Spontaneous Breathing Trial Weaning Start Time: 1728 (01/29/25 172) Weaning Tidal Volume: 446 mL (01/29/25 172) Weaning Respiratory Rate: 17 (01/29/251727) Spontaneous Minute Volume (MV): 7.6 (01/29/25 172) Weaning Tolerance: Good (01/29/251727) Weaning Stop Time: 1807 (01/29/25 172) Weaning Duration (min): 40 (01/29/25 172) Spontaneous Breathing Trial (SBT - RT) Outcome: SBT Passed (01/29/251727) Vent Settings Vent Mode: Spontaneous (01/29/251727) Mandatory Type: VC+ (01/29/251727) Resp Rate (Set): 16 (01/29/251727) Vt (Set, mL): 400 mL (01/29/251727) FiO2 (%): 40 % (01/29/251727) PEEP/CPAP (cm H2O): 8 cm H20 (01/29/25 172) Inspiratory Time (sec): 0.9 sec (01/29/251727) Vitals Suctioning/Secretions ABG results Recent Labs 01/29/25 1521 PHART 7.430 [id number] 35.4 PO2ART 324.4* [id number] 23.0 [id number] Ventilator Does this patient meet criteria for termination of mechanical ventilation Yes- Notified physician below Name of physician notified via secure chat or in person : David (NA if patient did not meet criteria) Comments: Thank you for involving Respiratory in the care of this patient, documented in this encounter [facility] 02-04-2025 Note Discharge Summary: C ardiothoracic Surgery Ryan Macedo, 69 y.o., 1955 ADMIT DATE: 01/29/2025 DISCHARGE DATE: 02/04/2025 VISIT STATUS: Admission CODE STATUS: Full Code DISCHARGING SURGEON: Ronnie Herrera MD, Office Number: [phone] DISCHARGE DIAGNOSES: MVCAD s/p CABGx3 GERD HTN HLD OA DM Post operative Pulm Management: Normal Post-operative Course Post-operative Atrial Fibrillation: Yes Acute blood loss anemia BMI CLASSIFICATION:Overweight (BMI 25.0-29.9) TREATMENT TEAM: Primary Care Physician: MIRIAM GOMEZ Process Safety Management Engineer: Dr. Vika Ye cardiology SURGERY: 01/29/25- CABG x3 (FAIR-LAD, SVG-OM1, SVG-RPDA), [facility] with Dr. Herrera HOSPITAL COURSE: 69 y.o.male with pmHx of GERD, HTN, HLD, OA, Gout and DM was seen in the OP setting by CTS for potential CABG. Initially patient underwent a stress test which was suggestive of ischemia at a moderate workload. He then underwent a cardiac cath which noted: MVCAD with severe disease involving the circumflex and RCA, moderately severe disease involving the LAD and mild LV systolic dysfunction. He consented and was taken to the operating room on 01/29/25 for CABG x [address] Herrera. His postoperative course was largely uncomplicated. He did have x1 episode of Afib which resolved with Amio. He was discharged on Amio PO taper. Will also discharge on 5 day course of lasix with K supp. Medications: ASA/Zetia BB- Metoprolol 50mg BID Amio 400mg BID Lasix 40mg PO daily BRIEF PE ON DAY OF DISCHARGE: Physical Exam Cardiovascular: Rate and Rhythm: Normal rate and regular rhythm. Heart sounds: No murmur heard. No friction rub. Pulmonary: Effort: Pulmonary effort is normal. Breath sounds: No decreased breath sounds, wheezing or rhonchi. Abdominal: General: Bowel sounds are normal. Palpations: Abdomen is soft. Tenderness: There is no abdominal tenderness. Musculoskeletal: Right lower leg: No edema. Left lower leg: No edema. Skin: General: Skin is warm and dry. Capillary Refill: Capillary refill takes less than 2 seconds. Findings: Bruising and ecchymosis present. Comments: Surgical Incisions: well approximate; clean dry with no drainage noted. Surrounding skin no redness, warmth, or signs of infection noted. Neurological: Mental Status: He is alert. Psychiatric: Behavior: Behavior is cooperative. DIAGNOSTICS: BP 114/60 (BP Location: Right arm, Patient Position: Lying) Pulse 64 Temp 36.9 ?C (98.5 ?F) (Temporal) Resp 18 Ht 6' 4 (1.93 m) Wt 206 lb 2.1 oz (93.5 kg) SpO2 97% BMI 25.09 kg/m? Recent Labs 02/02/25 1005 02/03/25 0320 02/04/25 0530 CREATININE 1.10 0.86 1.03 HGB 9.4* 7.5* 8.9* PLT 231 213 285 WBC 7.3 5.7 6.7 NA 136 138 137 K 3.7 3.4* 3.7 DISCHARGE MEDICATIONS: Medication List START taking these medications acetaminophen 500 MG tablet Commonly known as: Tylenol Take 2 tablets (1,000 mg) by mouth every 8 hours as needed for mild pain (1-3) or moderate pain (4-6). amiodarone 200 MG tablet Commonly known as: Pacerone Take 2 tablets (400 mg) by mouth 2 times daily for 5 days, THEN 2 tablets (400 mg) daily for 7 days, THEN 1 tablet (200 mg) daily. Start taking on: February 04, 2025 furosemide 40 MG tablet Commonly known as: Lasix Take 1 tablet (40 mg) by mouth daily for 5 days. Start taking on: February 05, 2025 Methocarbamol 1000 MG tablet Take 1,000 mg by mouth every 8 hours as needed for muscle spasms for up to 10 days. metoprolol tartrate 50 MG tablet Commonly known as: Lopressor Take 1 tablet (50 mg) by mouth 2 times daily. oxyCODONE 5 MG immediate release tablet Commonly known as: Roxicodone Take 1 tablet (5 mg) by mouth every 6 hours as needed for severe pain (7-10) for up to 5 days. potassium chloride CR 20 MEQ ER tablet Commonly known as: Klor-Con M20 Take 1 tablet (20 mEq) by mouth daily for 5 days. Do not crush or chew. CONTINUE taking these medications aspirin 81 MG EC tablet cholecalciferol 50 MCG (2000 UT) capsule Commonly known as: Vitamin D-3 coenzyme Q-10 100 MG capsule ezetimibe 10 MG tablet Commonly known as: Zetia famotidine 40 MG tablet Commonly known as: Pepcid glimepiride 2 MG tablet Commonly known as: Amaryl metFORMIN 500 MG tablet Commonly known as: Glucophage multivitamin tablet Ozempic (1 MG/DOSE) 4 MG/3ML solution pen-injector Generic drug: semaglutide STOP taking these medications dilTIAZem CD 360 MG 24 hr capsule Commonly known as: Cardizem CD hydroCHLOROthiazide 25 MG tablet Commonly known as: HYDRODiuril losartan 100 MG tablet Commonly known as: Cozaar mupirocin 2 % ointment Commonly known as: Bactroban Where to Get Your Medications These medications were sent to [facility] [address] [place] [address] Hours: Monday to Monday 10 am to 6 pm acetaminophen 500 MG tablet amiodarone 200 MG tablet naif (more content not included)... [facility] 02-04-2025 Hospital course Narrative Images from the original note were not included. Discharge Summary: Cardiothoracic Surgery Ryan Macedo, 69 y.o., 1955 ADMIT DATE: 01/29/2025 DISCHARGE DATE: 02/04/2025 VISIT STATUS: Admission CODE STATUS: Full Code DISCHARGING SURGEON: Ronnie Herrera MD, Office Number: [phone] DISCHARGE DIAGNOSES: MVCAD s/p CABGx3 GERD HTN HLD OA DM Post operative Pulm Management: Normal Post-operative Course Post-operative Atrial Fibrillation: Yes Acute blood loss anemia BMI CLASSIFICATION:Overweight (BMI 25.0-29.9) TREATMENT TEAM: Primary Care Physician: MIRIAM GOMEZ Process Safety Management Engineer[facility]: 01/29/25- CABG x3 (FAIR-LAD, SVG-OM1, SVG-RPDA), LLE EV with Dr. Herrera HOSPITAL COURSE: 69 y.o.male with pmHx of GERD, HTN, HLD, OA, Gout and DM was seen in the OP setting by CTS for potential CABG. Initially patient underwent a stress test which was suggestive of ischemia at a moderate workload. He then underwent a cardiac cath which noted: MVCAD with severe disease involving the circumflex and RCA, moderately severe disease involving the LAD and mild LV systolic dysfunction. He consented and was taken to the operating room on 01/29/25 for CABG x [address] Herrera. His postoperative course was largely uncomplicated. He did have x1 episode of Afib which resolved with Amio. He was discharged on Amio PO taper. Will also discharge on 5 day course of lasix with K supp. Medications: ASA/Zetia BB- Metoprolol 50mg BID Amio 400mg BID Lasix 40mg PO daily BRIEF PE ON DAY OF DISCHARGE: Physical Exam Cardiovascular: Rate and Rhythm: Normal rate and regular rhythm. Heart sounds: No murmur heard. No friction rub. Pulmonary: Effort: Pulmonary effort is normal. Breath sounds: No decreased breath sounds, wheezing or rhonchi. Abdominal: General: Bowel sounds are normal. Palpations: Abdomen is soft. Tenderness: There is no abdominal tenderness. Musculoskeletal: Right lower leg: No edema. Left lower leg: No edema. Skin: General: Skin is warm and dry. Capillary Refill: Capillary refill takes less than 2 seconds. Findings: Bruising and ecchymosis present. Comments: Surgical Incisions: well approximate; clean dry with no drainage noted. Surrounding skin no redness, warmth, or signs of infection noted. Neurological: Mental Status: He is alert. Psychiatric: Behavior: Behavior is cooperative. DIAGNOSTICS: BP 114/60 (BP Location: Right arm, Patient Position: Lying) Pulse 64 Temp 36.9 C (98.5 F) (Temporal) Resp 18 Ht 6' 4 (1.93 m) Wt 206 lb 2.1 oz (93.5 kg) SpO2 97% BMI 25.09 kg/m Recent Labs 02/02/25 1005 02/03/25 0320 02/04/25 0530 CREATININE 1.10 0.86 1.03 HGB 9.4* 7.5* 8.9* PLT 231 213 285 WBC 7.3 5.7 6.7 NA 136 138 137 K 3.7 3.4* 3.7 DISCHARGE MEDICATIONS: Medication List START taking these medications acetaminophen 500 MG tablet Commonly known as: Tylenol Take 2 tablets (1,000 mg) by mouth every 8 hours as needed for mild pain (1-3) or moderate pain (4-6). amiodarone 200 MG tablet Commonly known as: Pacerone Take 2 tablets (400 mg) by mouth 2 times daily for 5 days, THEN 2 tablets (400 mg) daily for 7 days, THEN 1 tablet (200 mg) daily. Start taking on: February 04, 2025 furosemide 40 MG tablet Commonly known as: Lasix Take 1 tablet (40 mg) by mouth daily for 5 days. Start taking on: February 05, 2025 Methocarbamol 1000 MG tablet Take 1,000 mg by mouth every 8 hours as needed for muscle spasms for up to 10 days. metoprolol tartrate 50 MG tablet Commonly known as: Lopressor Take 1 tablet (50 mg) by mouth 2 times daily. oxyCODONE 5 MG immediate release tablet Commonly known as: Roxicodone Take 1 tablet (5 mg) by mouth every 6 hours as needed for severe pain (7-10) for up to 5 days. potassium chloride CR 20 MEQ ER tablet Commonly known as: Klor-Con M20 Take 1 tablet (20 mEq) by mouth daily for 5 days. Do not crush or chew. CONTINUE taking these medications aspirin 81 MG EC tablet cholecalciferol 50 MCG (2000 UT) capsule Commonly known as: Vitamin D-3 coenzyme Q-10 100 MG capsule ezetimibe 10 MG tablet Commonly known as: Zetia famotidine 40 MG tablet Commonly known as: Pepcid glimepiride 2 MG tablet Commonly known as: Amaryl metFORMIN 500 MG tablet Commonly known as: Glucophage multivitamin tablet Ozempic (1 MG/DOSE) 4 MG/3ML solution pen-injector Generic drug: semaglutide STOP taking these medications dilTIAZem CD 360 MG 24 hr capsule Commonly known as: Cardizem CD hydroCHLOROthiazide 25 MG tablet Commonly known as: HYDRODiuril losartan 100 MG tablet Commonly known as: Cozaar mupirocin 2 % ointment Commonly known as: Bactroban Where to Get Your Medications These medications were sent to [facility] [address] [place] [address] Hours: Monday to Monday 10 am to 6 pm acetaminophen 500 MG tablet amiodarone 200 MG tablet furosemide 40 MG tablet Methocarbamol 1000 MG tablet metoprolol tartrate 50 MG tablet oxyCODONE 5 MG immediate release tablet potassium chloride CR 20 MEQ ER tablet ACTIVITY: activity as tolerated, strict post-sternotomy/post-thoracotomy sternal precautions as outlined in the home going instructions, and no driving or operating heavy machinery until released by provider STRICT POST-STERNOTOMY/POST-THORACOTOMY PRECAUTIONS OUTLINED IN THE HOME GOING INSTRUCTIONS FOLLOW UP: Rebeca Mandel APRN 02/13/25 @ 10am [address] [place], [place] [id number] Dept: [phone] Dept CORE CARDIAC MEDICATIONS PRESCRIBED AT DISCHARGE: Beta-aleksander prescribed at discharge: [x] Yes [] No - reason why: ACEi or ARB prescribed at discharge: [] Yes [x] No - reason why: n/a Statin prescribed at discharge: [] Yes [x] No - reason why: allergy Anti-platelet agent prescribed at discharge: [x] Yes [] No - reason why: Post-operative Atrial Fibrillation: [x]Yes [] No OAC: [] Yes [x] No Initial Post-op RBC transfusion date/reason: none noted during post-operative course Chronic Lung Disease: Unknown DISPOSITION: Home A copy of the discharge instructions which included the medications at the time of discharge, follow-up appointments, phone numbers to call with questions, activity, restrictions, and limitations was provided to the patient or their family. We greatly appreciate the opportunity to participate in the care of your patient. If you have any additional questions or concerns regarding any aspects of their care or management please do not hesitate to contact us. SIGNED: HARMONY Paulino CNP 02/04/2025, 9:22 AM Cosigned by Ronnie Herrera MD at 02/04/2025 1:46 PM EDT documented in this encounter [facility] 02-04-2025 Hospital Discharg e instructions HARMONY Paulino CNP - 02/04/2025 9:12 AM EDT Images from the original note were not included. [facility]: Cardiothoracic Surgery [address] [place] [address]. [address] [facility] #[phone] Notify us if the following occur - Increased tenderness, redness, or swelling of your incisions. - Any drainage from the chest incision (clear or pink drainage from the leg incision or chest tube site is common). - Angina symptoms like those you had before surgery - Sharp pain in chest, neck or shoulder that is worse when taking a deep breath - Persistent fever greater than 100 degrees F or 38 degrees C - Flu-like symptoms-chills, aches, fever, increased fatigue - Heart rate faster than 150 beats/minute with shortness of breath or new irregular heart rate. - Any unusual bleeding - Shortness of breath not relieved by rest - Weight gain of three pounds in one day or five pounds over one week Activity Instructions - Sternal Precautions for 6 weeks - Do not lift, push, or pull anything heavier than 10 pounds for 6 weeks (a gallon of milk weighs 8 pounds). - Do not drive until you have been given permission by your surgeon/provider and until you are off narcotic/opioid pain medication - It is ok to sleep on your side if you prop pillows to support your back. Do not sleep on your stomach. - Walk at least 4 times a day, start with 5 minute intervals, increase minutes walked each day. Do not walk on a treadmill - Balance rest and activity during your recovery - Use the stairs, but go slowly, Use the handrail for balance but do not pull yourself up with your arms. - Shower daily. Do not take your heart medication right before you shower. You could become lightheaded from your blood pressure and heart medication. Always have someone nearby to assist you. - Do not take a tub bath or use a hot tub until all incision are completely healed (no scab). - Put ismael hose on in AM and remove at bedtime. Elevate your feet above level of heart when you are sitting. - Cough and deep breathe and use incentive spirometer every hour (10x/hour while awake for two weeks). Other Instructions - Weigh yourself daily at the same time (after you urinate but before breakfast) - Keep a record of your daily weight, and bring to your first post op office visit - Take all medications as prescribed. Bring all your medication bottles to any follow up office visit Incision Care - Wash your sternal incision with anti-bacterial soap and warm water. Pat dry, and leave open to air. Do not use any lotions, or powders, or ointments. Cardiothoracic Surgery: Symptom Management Office phone number: [phone] Office is open 8:30 am -4 pm. If you need assistance after hours, this will direct you to a nursing hotline. GREEN ZONE: All Clear- Your Symptoms Are Under Control Incisional pain is managed by taking Acetaminophen and/or pain medication No increase in shortness of breath No increase in leg swelling or weight gain No frequent lightheadedness/dizziness No redness or drainage from incisions. Small amount of thin, blood tinged or yellow drainage is not uncommon for few days post discharge This Means You Should: Continue current plan of care Continue taking your medications as prescribed Continue activity as tolerated, including 4 walks daily and PT exercised Eat healthy diet, no caffeine Keep all follow-up appointments No smoking YELLOW ZONE: Caution Incisional pain that is getting worse and/or not managed by pain medication Increase in shortness of breath, especially when at rest Increased leg swelling or new leg swelling Weight gain (more than 3lb in 1 day or 5lb in 1 week) Lightheadedness, dizziness, or heavy sweating Redness and/or thick drainage from incision Fever/chills This Means You Should: Call cardiothoracic surgery line for further instructions: [phone] Office is open 8:30 am -4 pm. If you need assistance after hours, this will direct you to a nursing hotline. RED ZONE: Medical Alert Severe shortness of breath at rest Severe chest pain/pressure or pain that radiates to neck, jaw, back, and/or arm that is NOT relieved with rest and pain medication. May be similar to pain prior to surgery Passing out or fainting This Means You Should: call EMS or seek care in Emergency Department Sharonda Lawrence RN - 01/31/2025 11:38 AM EDT Images from the original note were not included. Continuity of Care Form Patient Name: Ryan Macedo : 1955 Admit date: 01/29/2025 Discharge date: Code Status Order: Full Code Advance Directives: Y Admitting Physician: Ronnie Herrera MD PCP: MIRIAM GOMEZ Discharging Nurse: Discharging Hospital Unit/Room#: T1-121/T1-121 A Discharging Unit Phone Number: Emergency Contact: Extended Emergency Contact Information Primary Emergency Contact: Gela Macedo Relation: Spouse Past Surgical History: Past Surgical History: Procedure Laterality Date BACK SURGERY lumbar KNEE SURGERY Right arthroscopy for meniscus tear ROTATOR CUFF REPAIR Left Immunization History: Immunization History Administered Date(s) Administered Covid-19, Moderna Bivalent Booster, (Age 6y-11y) 03/24/2022 Moderna SARS-CoV-2 Vaccination 07/02/2020, 07/30/2020, 03/10/2021, 09/20/2021 Active Problems: Medical Problems Problem List * (Principal) CAD in [place] artery Isolation/Infection: No active isolations No active infections Nurse Assessment: Last Vital Signs: BP 130/69 Pulse 73 Temp 36.4 C (97.6 F) (Temporal) Resp 18 Ht 1.93 m (6' 4) Wt 99.7 kg (219 lb 12.8 oz) SpO2 94% BMI 26.75 kg/m Last documented pain score (0-10 scale): Last Weight: Wt Readings from Last 1 Encounters: 01/31/25 99.7 kg (219 lb 12.8 oz) Mental Status: {BALBINA Patient Mental Status:80688} IV Access: {BALBINA IV Access:66614} Nursing Mobility/ADLs: Walking {LASHONDA ADL:66123::Independent} Transfer {LASHONDA ADL:48470::Independent} Bathing {LASHONDA ADL:88423::Independent} Dressing {LASHONDA ADL:17229::Independent} Toileting {LASHONDA ADL:::Independent} Feeding {LASHONDA ADL:17392::Independent} Cotton Factor {LASHONDA ADL:::Independent} Med Delivery {yes/no:56795} Wound Care Documentation and Therapy: Wound/Incision 01/29/25 Incision Sternum Mid (Active) Site Assessment Clean;Dry;Intact 01/31/25 0800 Eugenia-Wound Assessment Clean;Dry;Intact 01/31/25 0800 Odor None 01/31/25 0800 Drainage Amount None 01/31/25 0800 Treatments Cleansed 01/30/25 0600 Primary Dressing Liquid dressing adhesive 01/31/25 0800 Dressing Status Clean, dry & intact 01/31/25 0800 Number of days: 1 Wound/Incision 01/29/25 Incision Calf Anterior;Left (Active) Site Assessment Clean;Dry;Intact 01/31/25 0800 Eugenia-Wound Assessment Clean;Dry;Intact 01/31/25 0800 Odor None 01/31/25 0800 Drainage Amount None 01/31/25 0800 Treatments Cleansed 01/30/25 0600 Primary Dressing Liquid dressing adhesive 01/31/25 0800 Dressing Status Clean, dry & intact 01/31/25 0800 Number of days: 1 Elimination: Continence: Bowel: {yes/no:95850} Bladder: {yes/no:96986} Urinary Catheter: {BALBINA Urinary Catheter:23797} Colostomy/Ileostomy/Ileal Conduit: {YES / NO:} Date of Last BM: Intake/Output Summary (Last 24 hours) at 01/31/2025 1138 Last data filed at 01/31/2025 1000 Gross per 24 hour Intake 1041 ml Output 2140 ml Net -1099 ml I/O last 3 completed shifts: In: 3078 (30.9 mL/kg) [I.V.:3078 (30.9 mL/kg)] Out: 3041 (30.5 mL/kg) [Urine:1958 (0.5 mL/kg/hr); Emesis/NG output:190; Chest Tube:893] Weight: 99.7 kg Safety Concerns: {BALBINA Safety Concerns:08306} Impairments/Disabilities: {BALBINA Impairments/Disabilities:33528} Nutrition Therapy: Current Nutrition Therapy: {BALBINA Diet List:38813} Routes of Feeding: {routes of feedin} Liquids: {liquid consistency:86820} Daily Fluid Restriction: {daily fluid restriction:25344} Last Modified Barium Swallow with Video (Video Swallowing Test): {done not done:57304} Treatments at the Time of Hospital Discharge: Respiratory Treatments: Oxygen Therapy: {Therapy; copd oxygen:35786} Ventilator: {BALBINA Ventilator:54789} Rehab Therapies: {GEN THERAPY DISCIPLINE SCAL:7721239} Weight Bearing Status/Restrictions: {POD WEIGHT BEARIN} Other Medical Equipment (for information only, NOT a DME order): {Assistive Devices DME:00770} Other Treatments: Patient's personal belongings (please select all that are sent with patient): {BALBINA Patient Belongings:93073} RN SIGNATURE: {E-signature:56518} CASE MANAGEMENT/SOCIAL WORK SECTION Inpatient Status Date: Discharging to Facility/ Agency Name: [facility] Address: [address] [place] [address] Dialysis Facility (if applicable) Name: Address: Dialysis Schedule: Phone: Fax: Rn Telemetry/[place] signature: {E-signature:91293} PHYSICIAN SECTION Name: Ryan Macedo Prognosis: {Rehab Prognosis:09108} Condition at Discharge: {Patient Condition:77202} Rehab Potential (if transferring to Rehab): {Rehab Prognosis:39326} Recommended Labs or Other Treatments After Discharge: The individual is being admitted to a nursing facility directly from an [facility] or a unit of a [facility] that is not operated by or licensed by [facility] under section 5119.14 or 5160-3-15.1 5 The individual requires the level of services provided by a nursing facility for the condition for which he or she was treated in the hospital and, Physician Certification: I certify the above information and transfer of Ryan Macedo is necessary for the continuing treatment of the diagnosis listed and that he requires {BALBINA Level of Care:89662} for {greater less than:84017} 30 days. Update Admission H&P: {BALBINA Changes in H&P:21023} PHYSICIAN SIGNATURE: {E-signature:00975} The following attachments cannot be sent through Care Everywhere.Heart Healthy Diet ([place] Citizen)Dietary Fats ([place] Citizen)documented in this encounter [facility] 02-03-2025 Note Care Management Prog ress Note Short Medical why still here: CABG x 3 0n 01/29. PT rec HHC and HHC liaison following. OT eval pending. Endo following for insulin needs. CT surgery plans for likely Dc tomorrow. Planned Discharge Disposition: Home Health Services Barriers/Today we still Wait: Clinical stability Length of Stay (Days): 5 GMLOS: 5.8 TCC will continue to follow for discharge planning. Care Managment Initial Assessment Date: 02/03/2025 Patient Name: Ryan Macedo : 1955 Patient Information Source of Information: Patient Cognition/Language: WFL - Within Functional Limits Permission given to speak with patient sales representative electric service/caregiver as indicated: Yes (Included Gela in conversation) Confirmation of Payer with patient/family: Yes Payer Name: [employer] A [employer] B with MMO Medicare supplement [place]: No Confirmation of Primary Care Physician: Confirmed PCP Name: Dr. Miriam garces, [facility] Seen in last 2 years?: Yes Primary Caregiver: Self If assistance needed, confirmed caregiver ready, willing and able to care for patient at discharge: Yes Confirmed with: Living Arrangements Current Residence: House Number of Floors 2 Number of Entry Steps: 2 Bed/Bath Levels: Both second floor Lives with: Spouse/significant other Support Systems: Spouse/significant other Activities of Daily Living Ambulation: Independent Bathing/Dressing: Independent Elimination/Continence/Toileting: Independent Feeding: Independent Who Assists with Activities of Daily Living: No assistance needed Instrumental Activities of Daily Living Prescription Coverage: Yes Pharmacy Used: [facility] [place], [place] Medication Management: Independent Transportation/Shopping: Independent Transportation Mode: Car Needs Assistance with Transportation at Discharge: No Meal Preparation: Independent Laundry/Cleaning: Independent Finances/Bill Paying: Independent Communication: Independent Types of Care Services/Equipment Utilized Care Services: (N/A) Dialysis Type: NA Durable Medical Equipment: Glucometer Patient's Goal/Discharge Plan Patient expects to be discharged to: Home with Discharge Planning Actions: No needs identified Patient's Choice Rights and [employer] and Collaborative Relationships Disclosed as Indicated for Post-Acute Care: NA Interdisciplinary Team Engagement: (N/A) Social Work Referral for: (N/A) Additional Information: Covering TCC met with patient and to introduce self/role. He reports being fully independent prior to surgery and is planning home with [facility] at discharge. He denied any TCC needs at this time. TCC team will continue to follow. Rajwinder Gasca RN [facility] 02-03-2025 Miscellaneous Notes Care Management Progress Note Short Medical why still here: CABG x 3 0n 01/29. PT rec HHC and C liaison following. OT eval pending. Endo following for insulin needs. CT surgery plans for likely Dc tomorrow. Planned Discharge Disposition: Home Health Services Barriers/Today we still Wait: Clinical stability Length of Stay (Days): 5 GMLOS: 5.8 TCC will continue to follow for discharge planning. Care Managment Initial Assessment Date: 02/03/2025 Patient Name: Ryan Macedo : 1955 Patient Information Source of Information: Patient Cognition/Language: WFL - Within Functional Limits Permission given to speak with patient sales representative electric service/caregiver as indicated: Yes (Included Gela in conversation) Confirmation of Payer with patient/family: Yes Payer Name: [facility] A & B with MMO Medicare supplement : No Confirmation of Primary Care Physician: Confirmed PCP Name: Dr. Miriam Wiggins [place], [facility] Seen in last 2 years?: Yes Primary Caregiver: Self If assistance needed, confirmed caregiver ready, willing and able to care for patient at discharge: Yes Confirmed with: Living Arrangements Current Residence: House Number of Floors 2 Number of Entry Steps: 2 Bed/Bath Levels: Both second floor Lives with: Spouse/significant other Support Systems: Spouse/significant other Activities of Daily Living Ambulation: Independent Bathing/Dressing: Independent Elimination/Continence/Toileting: Independent Feeding: Independent Who Assists with Activities of Daily Living: No assistance needed Instrumental Activities of Daily Living Prescription Coverage: Yes Pharmacy Used: [facility] Medication Management: Independent Transportation/Shopping: Independent Transportation Mode: Car Needs Assistance with Transportation at Discharge: No Meal Preparation: Independent Laundry/Cleaning: Independent Finances/Bill Paying: Independent Communication: Independent Types of Care Services/Equipment Utilized Care Services: (N/A) Dialysis Type: NA Durable Medical Equipment: Glucometer Patient's Goal/Discharge Plan Patient expects to be discharged to: Home with Discharge Planning Actions: No needs identified Patient's Choice Rights and [employer] and Collaborative Relationships Disclosed as Indicated for Post-Acute Care: NA Interdisciplinary Team Engagement: (N/A) Social Work Referral for: (N/A) Additional Information: Covering TCC met with patient and to introduce self/role. He reports being fully independent prior to surgery and is planning home with [facility] at discharge. He denied any TCC needs at this time. TCC team will continue to follow. Rajwinder Gasca RN Patient Choice Patient Name: RYAN MACEDO Date of : 1955 All Providers Sent Referral Name: [facility] Phone: [phone] Address: [address] [place] [id number] Start PACC Note Home Health Referral Educated patient and on Home Care and services available. Patient offered choice of available HHC and agreeable to SN/PT services with [facility]. Care Types: None Isolation Precautions: No active isolations Social Determinates of Health: Tobacco Use: Low Risk (01/29/2025) Patient History Smoking Tobacco Use: Never Smokeless Tobacco Use: Never Passive Exposure: Not on file Social History Substance and Sexual Activity Alcohol Use Never Social History Substance and Sexual Activity Drug Use Never Does the patient have any financial resource strain? No Does the patient have any food insecurities? No Does the patient have any housing instabilities? No If any of the above is noted as yes - consider a MACHINE SCALLOP CUTTER evaluation once the patient returns home. START PATIENT REGISTRATION INFORMATION Order Information Order Signing Physician: Ronnie Herrera MD Service Ordered RN ?: Yes Service Ordered PT ?: Yes Service Ordered OT ?: No Service Ordered ST ?: No Service Ordered MACHINE SCALLOP CUTTER?:No Service Ordered AUTO CARRIER DRIVER?: No Following Physician: Ronnie Herrera MD Following Physician Overseeing Physician: Ronnie Herrera MD (Required for Residents only) Agreeable to Follow? Yes Date/Time of Call 01/31/25 11:39 AM, Spoke with: cts protocol Care Coordination Same Day SOC?: No Primary Care Physician: MIRIAM GOMEZ Primary Care Physician Primary Care Physician Address: [address] [place] [address] Angie / [place] [id number] Visit Instructions: N/A Service Discharge Location Type: Home with Home Care Service Facility Name: N/A Service Floor Facility: N/A Service Room No: N/A Demographics Patient Last Name: Delano Patient First Name: Ryan Language/Communication Barrier: no Service Address: [address] [place] [address]: [facility] ST: [place] Service ZIP: [id number] Service Other phone numbers: Telephone Information: Emergency Contact: Extended Emergency Contact Information Primary Emergency Contact: Gela Macedo Relation: Spouse Admission Information Admit Date: 01/29/2025 Patient status at discharge: Inpatient Admitting Diagnosis: Atherosclerotic heart disease of [place] coronary artery with other forms of angina pectoris (HCC) [I25.118] CAD in [place] artery [I25.10] Caregiver Information Caregiver First Name: na Caregiver Last Name: na Caregiver Relationship to Patient na Caregiver Phone Number: na Caregiver Notes: N/A [email or web address] List HIGHTECH: [place] - NEXT DAY REQUEST Requests Next Available SOC/ADILENE END PATIENT REGISTRATION INFORMATION Pt Home Health goal go home COVID Status 1. Do you have any upper respiratory symptoms (cough, SOB, Fever)? No 2. Have you been exposed to anyone with COVID-19 Virus? No Answer only if pending or positive for COVID-19? 1. Agreeable to wear PPE at each visit? No 2. Is the hospital supplying them with PPE upon Discharge? No Start PACC Summary General Report/ Additional Comments Wound care/dressing changes: -Surgical incisions leave open to air, cleanse daily with mild soap & warm water, pat dry, no lotion or powders on incision. -Surgical tape/dsg removal 10 days from surgery date Respiratory Care: -Cough and Deep Breath; Use incentive spirometry 10 times every hour while awake for 2 weeks. Additional Orders: -Sternal precautions (no lifting, pushing, pulling >10 lbs) for 6 weeks-use heart pillow -Vitals per home health protocol-call for fever and chills -Daily weights- call for weight gain: 2-3lbs in one day; 5lbs in 3 days. -Wear TEDs during day and off at night. Lab Work: -If Diabetic: blood glucose testing as directed by PCP/Travel Assistant -For recent heart surgery if patient discharged on Coumadin verify need for INR draw on visit. Activity/Weight Bearing: -Up with assistance: up in chair for all meals, ambulate 3-4 times a day -Stretching exercises per PT discharge instructions Discharge Date: pending Referral Source-PACC: (Hospital/Unit): [facility] / [id number]/[id number] A End PACC Note Care Management Progress Note Short Medical why still here: Tcc chart review complete, ot eval pend, iv amio and insulin, right internal jugular triple lumen, right internal jugular introducer, sanchez, chest tube x3, HR and BP elevated, tcc to follow Planned Discharge Disposition: Home or Self Care Barriers/Today we still Wait: Administering IV medications, Clinical stability, Assistant Laboratory Director recommendations (comment), Symptomatic control Length of Stay (Days): 2 GMLOS: 5.8 Images from the original note were not included. Cardiothoracic Surgery Operative Report Pre-operative Diagnosis: Multivessel coronary artery disease Post-operative Diagnosis: Multivessel coronary artery disease Procedure: Coronary revascularization x 3: Left internal mammary artery grafted to left anterior descending coronary artery, reverse saphenous vein graft graft to the first obtuse marginal coronary artery, reverse saphenous vein graft grafted to the right posterior descending coronary artery; endoscopic vein harvesting left lower extremity; intraoperative transesophageal echocardiography Surgeon: Ronnie Herrera MD Medical Transcriber(s): [] Alex Sims [] Juan Leong [x] Angie Rasmussen [x] [] Other Anesthesia: General Estimated blood loss: Difficult to estimate due to the nature of the surgery. Cell Saver and pump suction utilized. Total IV fluids: See anesthesia and perfusion record Blood Transfusion?: None Drains: Bilateral pleural and mediastinal drains Specimens: None Complications: None Condition: Stable upon transfer to the intensive care unit Prophylactic Antibiotics: Yes 1st or 2nd generation cephalosporin given (or other antibiotic in the event of an allergy) within 1 hour of surgical incision (two hours if receiving Vancomycin or flouroquinolone) If NO, indication reason why: [] Patient on continuous antibiotics for documented preoperative infection [] Other: The STS Risk Calculator score was calculated and discussed with the patient/family prior to surgery. Yes: [x] No: [] Not a risk calculated procedure [] Emergent or Emergent/Salvage Used of PARAS: Yes No due to: [] Subclavian stenosis [] Emergent or Emergent/Salvage [] Prior cardiothoracic surgery [] Prior mediastinal radiation [] No bypassable LAD disease, LAD not needed/bypassed: (This can include clean LAD, diffusely diseased LAD or other condition resulting in the LAD not being bypassed). Beta-aleksander within 24 hours prior to surgical incision: [x] Yes - please see documentation in EMR [] No [] Allergy [] Heart block [] COPD [] Hypotension BP: [] Bradycardia HR: INDICATIONS FOR SURGERY: 69-year-old patient with diabetes mellitus who has had exertional dyspnea underwent a stress test which was abnormal. A subsequent cardiac catheterization revealed multivessel coronary artery disease with a chronically occluded right coronary artery (with collateral reconstitution via [id number] collaterals), and 90% stenosis at the ostium [...] in the fewest number of postprocedural interventions. The proposed operation would consist of a left internal mammary artery graft to the LAD, a vein graft to the distal right coronary artery system, and a vein graft to the obtuse marginal coronary artery with a proximal stenosis. DESCRIPTION OF PROCEDURE: Procedure Preparation: Patient was taken to the operative suite and placed under general endotracheal anesthesia. Monitoring lines were inserted by the department of anesthesia. Intraoperative transesophageal echocardiography was performed. The findings will follow under a separate dictation. The patient was positioned prepped and draped. Pressure and contact points were protected. An appropriate timeout was conducted. Conduit [place] and Institution of Cardiopulmonary Bypass: A LEFT lower extremity incision was made and the greater saphenous vein was procured using an endoscopic vein harvesting technique. The vein was prepared in the usual fashion and the incisions were closed in the usual manner. The vein had ADEQUATE caliber and size and had ADEQUATE flow. Simultaneously, a median sternotomy was employed and the left internal mammary artery was harvested in a skeletonized and pedicled fashion. The internal mammary artery had adequate caliber and flow. Prior to division of the left internal mammary artery, heparin was administered to obtain an ACT of greater than 400 seconds. The pericardium was open, marsupialized, and pursestrings were placed in preparation for central cannulation. Central cannulation progressed with a standard aortic cannula in the distal ascending aorta, a cardioplegia needle in the proximal ascending aorta and a multistage venous cannula via the right atrium into the inferior vena cava. Once cardiopulmonary bypass had been established examination of the heart, the coronary arteries, and overall anatomy was undertaken. Bypass graft length measurements were obtained with a heart full to adequately measure the length of the bypass grafts. Subsequently, the aorta was crossclamped and cardioplegia was administered. A minimum of 1 L of cardioplegia was initially administered and then intermittent aliquots of cold blood were given between each distal anastomosis. Coronary Artery Bypass Grafting: All DISTAL ANASTOMOSES were performed first in a similar fashion as follows: The target coronary artery was identified, an arteriotomy was performed, and the bypass conduit was grafted end-to-side with a running 7-0 Prolene suture in an open fashion. Each anastomosis was probed prior to completion with a 1.5 mm probe to assure patency and then infused with saline at the conclusion of the anastomosis to assure adequate flow. Once we had weaned off cardiopulmonary bypass, all bypass conduits were interrogated with a Doppler to assure excellent flow. Bypass #1: A reverse saphenous vein graft grafted to the posterior descending branch of the right coronary artery. The target coronary artery was fairly small. The graft had ADEQUATE caliber. This anastomosis proceeded smoothly and there was good flow. Bypass #2: A reverse saphenous vein graft grafted to the first obtuse marginal coronary artery. The target coronary artery was ADEQUATE and the graft had ADEQUATE caliber. This anastomosis proceeded smoothly and there was good flow. Bypass #3: A pedicled and skeletonized left internal mammary artery grafted to the mid left anterior descending coronary artery The target coronary artery was ADEQUATE and the graft had ADEQUATE caliber. This anastomosis proceeded smoothly and there was good flow. A hotshot was administered and the cross-clamp was removed. A partial occluding clamp was placed on the ascending aorta and proximal anastomoses were constructed end-to-side with the ascending aorta. The bypass grafts were grafted end-to-side to the ascending aorta with a running fine Prolene suture. Care was taken to avoid kinking or twisting of the grafts. Adequate tension was visualized. Radiopaque markers (hemoclips) were placed on each proximal anastomosis. Inspection of all anastomoses was undertaken prior to weaning from cardiopulmonary bypass. Weaning and Separation from Cardiopulmonary Bypass and Closure: We weaned and from cardiopulmonary bypass. Ongoing support with vasoactive agents was but needed. Once adequate cardiac function had been identified, protamine was administered. Decannulation ensued and purse strings were secured. Temporary pacing wires were not needed. Chest tubes were inserted in the mediastinum and within each pleural space. Once hemostasis was achieved ,we proceeded with closure. The sternum was reapproximated [id number] wires and the overlying tissues were closed in multiple layers. The patient was transported to the intensive care unit in serious but stable condition. Stop sign placed at computer documented in this encounter [facility] 02-03-2025 Note Cardiothoracic Surge ry/CCM Progress Note PATIENT NAME: Ryan Macdeo DATE: 02/03/25 HPI: 69 y.o.male with pmHx of GERD, HTN, HLD, OA, Gout and DM was seen in the OP setting by CTS for potential CABG. Initially patient underwent a stress test which was suggestive of ischemia at a moderate workload. He then underwent a cardiac cath which noted: MVCAD with severe disease involving the circumflex and RCA, moderately severe disease involving the LAD and mild LV systolic dysfunction. He consented and was taken to the operating room on 01/29/25 for CABG x [address] Herrera. Surgery/Procedure: 01/29/25- CABG x3 (FAIR-LAD, SVG-OM1, SVG-RPDA), LLE EV with Dr. Herrera Interval History: 02/03/25, POD# 5: VSS, afebrile, NSR on tele. On RA. Resting in bed, having some muscle soreness after working with PT yesterday. Discussed likely d/c tomorrow, he is agreeable to that plan. Review of Systems Constitutional: Negative for activity change, appetite change, diaphoresis, fatigue and fever. Respiratory: Negative for cough, shortness of breath and wheezing. Cardiovascular: Negative for chest pain, palpitations and leg swelling. Gastrointestinal: Negative for abdominal distention, abdominal pain, nausea and vomiting. Musculoskeletal: Positive for arthralgias. Skin: Negative for color change, pallor and rash. Objective: CT output cc/24hrs: 260 mL Last BM Date: 02/02/25 Vitals: BP: 153/83, MAP (mmHg): 103, BP Method: Automatic Heart Rate: 63 Resp: 20 Temp: 36.1 ?C (97 ?F), Temp Source: Temporal BMI (Calculated): 25.24 CXR: BMP: Recent Labs 02/01/25 0453 02/01/25 1203 02/02/25 0555 02/02/25 1005 02/03/25 0320 NA 137 < > 138 136 138 K 3.0* < > 3.3* 3.7 3.4* CL 111* < > 109* 103 111* CO2 20* < > 22* 21* 22* BUN 18 < > 24* 25* 24* CREATININE 0.82 < > 0.95 1.10 0.86 CALCIUM 7.2* < > 7.8* 8.9 7.6* MG 1.3* -- 1.8 -- 1.6 < > = values in this interval not displayed. CBC: Recent Labs 02/02/25 0555 02/02/25 1005 02/03/25 0320 WBC 5.2 7.3 5.7 HGB 7.0* 9.4* 7.5* HCT 21.4* 28.1* 23.0* PLT 150 231 213 MCV 94.7 93.7 95.0 RDW 12.7 12.8 12.7 INR: No results for input(s): INR in the last 72 hours. Physical Exam Cardiovascular: Rate and Rhythm: Normal rate and regular rhythm. Heart sounds: No murmur heard. No friction rub. Pulmonary: Effort: Pulmonary effort is normal. Breath sounds: No decreased breath sounds, wheezing or rhonchi. Abdominal: General: Bowel sounds are normal. Palpations: Abdomen is soft. Tenderness: There is no abdominal tenderness. Musculoskeletal: Right lower leg: No edema. Left lower leg: No edema. Skin: General: Skin is warm and dry. Capillary Refill: Capillary refill takes less than 2 seconds. Findings: Bruising and ecchymosis present. Comments: Surgical Incisions: well approximate; clean dry with no drainage noted. Surrounding skin no redness, warmth, or signs of infection noted. Neurological: Mental Status: He is alert. Psychiatric: Behavior: Behavior is cooperative. Assessment: MVCAD s/p CABGx3 GERD HTN HLD OA DM Post operative Pulm Management: Normal Post-operative Course Post-operative Atrial Fibrillation: []Yes [x] No Acute blood loss anemia Plan: Patient status: tele Medications: ASA/Zetia BB- Metoprolol 50mg BID Amio 400mg BID Lasix 40mg PO daily Bowel regimen: Miralax, senna GI prophy: PO protonix DVT prophy:TEDs, SCDs, and Lovenox SubQ Interventions: D/C CTs Encourage progressive mobility Pulmonary hygiene: IS and Acapella Consults: Endocrine following for insulin management PT/OT: PT: Home with assist PRN, Home with Home health PT TCC/Discharge Planning Likely d/c tomorrow Central Line: []Yes [x] No Arterial Line: []Yes [x] No Sanchez: []Yes [x] No Restraints: []Yes [x] No Patient discussed and plan of day developed from multidisciplinary rounds between Cardiothoracic Surgery (Cardiothoracic Surgeon, KIM) and Critical Care Attending Tele Status A total of 33 minutes were spent between the ebpr-es-[id number] encounter, physical exam, reviewing the medical history, coordinating the patient's care, counseling/educating the patient, ordering medications/test/procedures, interpreting results and documenting clinical information in the patients electronic health record on the day of the encounter. The patient was seen and examined Cardiac Core Medications: ASA, BB, and No statin due to allergy EF: LVEF- 55% preop Blood Conservation: None noted in post-operative period Process Safety Management Engineer: [facility] 02-03-2025 Nurse Note Wound Care consulted for Pressure Injury Prevention. Pt's Marcin= 20, pt is no longer at risk at this time. Skin Care Precaution order set in place. Dietitian consult in place. PT/OT consults in place. Will continue to follow peripherally. Please vocera or secure chat message with any questions. Tatiana ERIC, RN Patient up in chair from approx 0245 to 0500. Returned to bed per pt request d/t discomfort. Pt denying to ambulate at this time. documented in this encounter [facility] 02-02-2025 Note Cardiothoracic Surge ry/CCM Progress Note PATIENT NAME: Ryan Macedo DATE: 02/02/25 HPI: 69 y.o.male with pmHx of GERD, HTN, HLD, OA, Gout and DM was seen in the OP setting by CTS for potential CABG. Initially patient underwent a stress test which was suggestive of ischemia at a moderate workload. He then underwent a cardiac cath which noted: MVCAD with severe disease involving the circumflex and RCA, moderately severe disease involving the LAD and mild LV systolic dysfunction. He consented and was taken to the operating room on 01/29/25 for CABG x [address] Herrera. Surgery/Procedure: 01/29/25- CABG x3 (FAIR-LAD, SVG-OM1, SVG-RPDA), LLE EVH with Dr. Herrera Interval History: 02/02/25, POD# 04. Afebrile, NSR on tele, BP stable, on RA. No acute issues noted. Pain controlled. Objective: CT output cc/24hrs: 415 Vitals: BP: 101/53, MAP (mmHg): 68, BP Method: Automatic Heart Rate: 66 Resp: 18 Temp: 36 ?C (96.8 ?F), Temp Source: Temporal BMI (Calculated): 25.24 BMP: Recent Labs 01/31/25 0411 02/01/25 0453 02/01/25 1203 02/02/25 0555 02/02/25 1005 NA 139 137 135* 138 136 K 3.5 3.0* 3.7 3.3* 3.7 CL 106 111* 102 109* 103 CO2 24 20* 24 22* 21* BUN 20 18 21 24* 25* CREATININE 1.06 0.82 1.06 0.95 1.10 CALCIUM 9.1 7.2* 9.0 7.8* 8.9 MG 1.9 1.3* -- 1.8 -- CBC: Recent Labs 02/01/25 0453 02/02/25 0555 02/02/25 1005 WBC 8.8 5.2 7.3 HGB 8.4* 7.0* 9.4* HCT 25.2* 21.4* 28.1* PLT 153 150 231 MCV 94.4 94.7 93.7 RDW 12.9 12.7 12.8 INR: Recent Labs 01/31/25 0411 INR 1.2* Physical Exam Vitals reviewed. Constitutional: General: He is not in acute distress. Appearance: He is not ill-appearing or diaphoretic. Neck: Comments: Central line. Cardiovascular: Rate and Rhythm: Normal rate and regular rhythm. Pulses: Normal pulses. Heart sounds: No murmur heard. Pulmonary: Effort: Pulmonary effort is normal. Breath sounds: No wheezing, rhonchi or rales. Abdominal: General: There is no distension. Palpations: Abdomen is soft. Comments: Chest tubes. Musculoskeletal: General: Swelling present. Skin: General: Skin is warm and dry. Capillary Refill: Capillary refill takes less than 2 seconds. Findings: Bruising present. Comments: Surgical incisions well approximated. No redness, warmth or drainage noted. Neurological: General: No focal deficit present. Mental Status: He is alert and oriented to person, place, and time. Assessment: MVCAD s/p CABGx3 GERD HTN HLD OA DM Post operative Pulm Management: Normal Post-operative Course Post-operative Atrial Fibrillation: [x]Yes [] No Acute blood loss anemia Plan: Patient status: PCU Continue aspirin and BB. Zetia, no statin. Amio 400mg BID. Lasix 40mg IV daily. Re-check lab work after electrolyte repletion. -Check Hgb. Bowel regimen +MOM. -Consider lactulose if no BM today. Monitor chest tubes, if output low after ambulation, consider removing. Remove central line. Daily labs and CXR. Out of bed, progressive mobility. GI prophy: PO protonix DVT prophy:TEDs, SCDs, and Lovenox SubQ Pulmonary hygiene: IS and Acapella Consults: Endocrinology. PT/OT: Home with assist PRN (01/31/25) TCC/Discharge Planning: TBD. Central Line: [x]Yes [] No Arterial Line: []Yes [x] No Sanchez: []Yes [x] No Restraints: []Yes [x] No Patient discussed and plan of day developed from multidisciplinary rounds between Cardiothoracic Surgery (Cardiothoracic Surgeon, KIM) and Critical Care Attending A total of 20 minutes were spent between the empu-jc-[id number] encounter, physical exam, reviewing the medical history, coordinating the patient's care, counseling/educating the patient, ordering medications/test/procedures, interpreting results and documenting clinical information in the patients electronic health record on the day of the encounter. The patient was seen and examined. Cardiac Core Medications: ASA, BB, and No statin due to allergy EF: LVEF- 55% preop Blood Conservation: None noted in post-operative period Process Safety Management Engineer: [facility] 02-01-2025 Note Cardiothoracic Surge ry/CCM Progress Note PATIENT NAME: Ryan Macedo DATE: 02/01/25 HPI: 69 y.o.male with pmHx of GERD, HTN, HLD, OA, Gout and DM was seen in the OP setting by CTS for potential CABG. Initially patient underwent a stress test which was suggestive of ischemia at a moderate workload. He then underwent a cardiac cath which noted: MVCAD with severe disease involving the circumflex and RCA, moderately severe disease involving the LAD and mild LV systolic dysfunction. He consented and was taken to the operating room on 01/29/25 for CABG x [address] Herrera. Surgery/Procedure: 01/29/25- CABG x3 (FAIR-LAD, SVG-OM1, SVG-RPDA), LLE EVH with Dr. Herrera Interval History: 02/01/25, POD# 03: Afebrile, NSR on tele, BP stable, on RA. Afib yesterday AM, converted with amio, no re-occurrence. Pain in back this AM. Current IV Drips: Amio- 1mg/min Objective: CT output cc/24hrs: 570 UO cc/24hrs: 1650 Vitals: BP: 139/71, MAP (mmHg): 92, BP Method: Automatic Heart Rate: 69 Resp: 17 Temp: 36.5 ?C (97.7 ?F), Temp Source: Temporal BMI (Calculated): 25.24 BMP: Recent Labs 01/29/25 1521 01/29/25 1748 01/30/25 0021 01/31/25 0411 02/01/25 0453 NA 143 < > 141 139 137 K 3.2* < > 3.9 3.5 3.0* CL 112* < > 112* 106 111* CO2 23 < > 24 24 20* BUN 19 < > 19 20 18 CREATININE 1.05 < > 1.03 1.06 0.82 CALCIUM 9.0 < > 8.4* 9.1 7.2* MG 2.7* < > 2.0 1.9 1.3* PHOS 2.4 -- -- -- -- < > = values in this interval not displayed. CBC: Recent Labs 01/30/25 0021 01/31/25 0411 02/01/25 0453 WBC 8.6 11.3* 8.8 HGB 8.9* 9.3* 8.4* HCT 26.9* 28.5* 25.2* PLT 151 170 153 MCV 92.8 95.3 94.4 RDW 12.5 13.0 12.9 INR: Recent Labs 01/29/25 1748 01/30/25 0021 01/31/25 0411 INR 1.3* 1.2* 1.2* Physical Exam Vitals reviewed. Constitutional: General: He is not in acute distress. Appearance: He is not ill-appearing or diaphoretic. Neck: Comments: Central line. Cardiovascular: Rate and Rhythm: Normal rate and regular rhythm. Pulses: Normal pulses. Heart sounds: No murmur heard. Pulmonary: Effort: Pulmonary effort is normal. Breath sounds: No wheezing, rhonchi or rales. Abdominal: General: There is no distension. Palpations: Abdomen is soft. Comments: Chest tubes. Musculoskeletal: General: Swelling present. Skin: General: Skin is warm and dry. Capillary Refill: Capillary refill takes less than 2 seconds. Findings: Bruising present. Comments: Surgical incisions well approximated. No redness, warmth or drainage noted. Neurological: General: No focal deficit present. Mental Status: He is alert and oriented to person, place, and time. Assessment: MVCAD s/p CABGx3 GERD HTN HLD OA DM Post operative Pulm Management: Normal Post-operative Course Post-operative Atrial Fibrillation: []Yes [x] No Acute blood loss anemia Plan: Patient status: PCU Continue aspirin and BB. -Increase BB to 50mg BID. Zetia, no statin. Transition to PO amio 400mg BID. -If re-occurrence of afib, will restart gtt. Lasix 40mg IV daily. Toradol 15mg q6h for 3 doses. Bowel regimen +MOM. Maintain chest tubes for today. Re-check BMP after electrolyte repletion. Daily labs and CXR. GI prophy: PO protonix DVT prophy:TEDs, SCDs, and Lovenox SubQ Pulmonary hygiene: IS and Acapella Consults: Endocrinology. PT/OT: Home with assist PRN (01/31/25) TCC/Discharge Planning: TBD. Central Line: [x]Yes [] No Arterial Line: []Yes [x] No Sanchez: []Yes [x] No Restraints: []Yes [x] No Patient discussed and plan of day developed from multidisciplinary rounds between Cardiothoracic Surgery (Cardiothoracic Surgeon, KIM) and Critical Care Attending A total of 20 minutes were spent between the vorz-oq-[id number] encounter, physical exam, reviewing the medical history, coordinating the patient's care, counseling/educating the patient, ordering medications/test/procedures, interpreting results and documenting clinical information in the patients electronic health record on the day of the encounter. The patient was seen and examined. Cardiac Core Medications: ASA, BB, and No statin due to allergy EF: LVEF- 55% preop Blood Conservation: None noted in post-operative period Process Safety Management Engineer: [facility] 01-31-2025 Note Start PACC Note Home Health Referral Educated patient and on Home Care and services available. Patient offered choice of available HHC and agreeable to SN/PT services with [facility]. Care Types: None Isolation Precautions: No active isolations Social Determinates of Health: Tobacco Use: Low Risk (01/29/2025) Patient History Smoking Tobacco Use: Never Smokeless Tobacco Use: Never Passive Exposure: Not on file Social History Substance and Sexual Activity Alcohol Use Never Social History Substance and Sexual Activity Drug Use Never Does the patient have any financial resource strain? No Does the patient have any food insecurities? No Does the patient have any housing instabilities? No If any of the above is noted as yes - consider a MACHINE SCALLOP CUTTER evaluation once the patient returns home. START PATIENT REGISTRATION INFORMATION Order Information Order Signing Physician: Ronnie Herrera MD Service Ordered RN ?: Yes Service Ordered PT ?: Yes Service Ordered OT ?: No Service Ordered ST ?: No Service Ordered MACHINE SCALLOP CUTTER?:No Service Ordered AUTO CARRIER DRIVER?: No Following Physician: Ronnie Herrera MD Following Physician Overseeing Physician: Ronnie Herrera MD (Required for Residents only) Agreeable to Follow? Yes Date/Time of Call 01/31/25 11:39 AM, Spoke with: cts protocol Care Coordination Same Day SOC?: No Primary Care Physician: MIRIAM GOMEZ Primary Care Physician Primary Care Physician Address: [address] [place] [phone] Visit Instructions: N/A Service Discharge Location Type: Home with Home Care Service Facility Name: N/A Service Floor Facility: N/A Service Room No: N/A Demographics Patient Last Name: Delano Patient First Name: Ryan Language/Communication Barrier: no Service Address: [address] [place] [address] Service City: [facility] ST: [place] Service ZIP: [address] Service Other phone numbers: Telephone Information: Emergency Contact: Extended Emergency Contact Information Primary Emergency Contact: DelanoGela Relation: Spouse Admission Information Admit Date: 01/29/2025 Patient status at discharge: Inpatient Admitting Diagnosis: Atherosclerotic heart disease of [place] coronary artery with other forms of angina pectoris (HCC) [I25.118] CAD in [place] artery [I25.10] Caregiver Information Caregiver First Name: na Caregiver Last Name: brian Caregiver Relationship to Patient na Caregiver Phone Number: brian Caregiver Notes: N/A [employer] List HIGHTECH: HI TECH - NEXT DAY REQUEST Requests Next Available SOC/ADILENE END PATIENT REGISTRATION INFORMATION Pt Home Health goal go home COVID Status 1. Do you have any upper respiratory symptoms (cough, SOB, Fever)? No 2. Have you been exposed to anyone with COVID-19 Virus? No Answer only if pending or positive for COVID-19? 1. Agreeable to wear PPE at each visit? No 2. Is the hospital supplying them with PPE upon Discharge? No Start PACC Summary General Report/ Additional Comments Wound care/dressing changes: -Surgical incisions leave open to air, cleanse daily with mild soap & warm water, pat dry, no lotion or powders on incision. -Surgical tape/dsg removal 10 days from surgery date Respiratory Care: -Cough and Deep Breath; Use incentive spirometry 10 times every hour while awake for 2 weeks. Additional Orders: -Sternal precautions (no lifting, pushing, pulling >10 lbs) for 6 weeks-use heart pillow -Vitals per home health protocol-call for fever and chills -Daily weights- call for weight gain: 2-3lbs in one day; 5lbs in 3 days. -Wear TEDs during day and off at night. Lab Work: -If Diabetic: blood glucose testing as directed by PCP/Travel Assistant -For recent heart surgery if patient discharged on Coumadin verify need for INR draw on visit. Activity/Weight Bearing: -Up with assistance: up in chair for all meals, ambulate 3-4 times a day -Stretching exercises per PT discharge instructions Discharge Date: pending Referral Source-PACC: (Hospital/Unit): [facility] / / A End PACC Note [facility] 01-31-2025 Note Received referral an d reviewed chart. Phase II Cardiopulmonary Rehab Referral discussed with Ryan Macedo. Patient prefers cardiopulmonary rehab at [place]. Given information on program at preferred location. [facility] 01-31-2025 Consult note Formatting of th is note might be different from the original. Received referral and reviewed chart. Phase II Cardiopulmonary Rehab Referral discussed with Ryan Macedo. Patient prefers cardiopulmonary rehab at [place]. Given information on program at preferred location. Associated Order(s): IP CONSULT TO DIETITIAN; IP CONSULT TO DIETITIAN Nutrition Assessment Type and Reason for Visit: Initial, Consult, Patient Education (s/p open heart surgery) Nutrition Recommendations/Plan: Continue 5 carb choices (75 g/meal) JESSICA diet as ordered. Per MNT protocol, will order Glucerna Shake BID to promote post-op PO intake and healing. Heart healthy diet information is added to pt's discharge information. Will assess diet education needs at follow up visit as today is POD 1. RD will monitor overall nutrition status and will follow weekly. Malnutrition Assessment: Malnutrition Status: At risk for malnutrition (Comment) (N/V s/p open heart surgery) Nutrition Assessment: Per chart: pt with pmHx of GERD, HTN, HLD, OA, Gout and DM was seen in the OP setting by CTS for potential CABG. Initially patient underwent a stress test which was suggestive of ischemia at a moderate workload. He then underwent a cardiac cath which noted: MVCAD with severe disease involving the circumflex and RCA, moderately severe disease involving the LAD and mild LV systolic dysfunction. He consented and was taken to the operating room on 01/29/25 for CABG x [address] Herrera. POD# 1. Extubated with diet ordered. Noted N/V epsiodes overnight. Estimated Daily Nutrient Needs: Energy Requirements Based On: Kcal/kg Weight Used for Energy Requirements: [place] Weight for Energy Calculation (kg): 91.6 kg (25-30 kcal/kg) Total Energy Requirements (kcals/day): 4292-0776 Weight Used for Protein Requirements: [place] Weight in Kg Used for Protein Requirements: 91.6 kg (1.2-1.5 g/kg) Estimated Total Protein (g/day): 110-137 Estimated Daily Total Fluid (ml/day): per MD Nutrition Related Findings: Marcin Scale Score: 18. Wound Type: Surgical Incision Net IO Since Admission: 567 mL [01/30/25 1235] Edema: RUE Edema: None, LUE Edema: None, RLE Edema: None, LLE Edema: None Bowel Sounds (All Quadrants): Hypoactive Abdomen Inspection: Soft O2 Delivery Method: Nasal cannula, FiO2 (%): 40 %, O2 Flow Rate (L/min): 1 L/min Labs and meds reviewed: Scheduled Meds[1] Continuous Meds[2] BMP: Recent Labs 01/29/25 1521 01/29/25 1748 01/30/25 0021 NA 143 143 141 K 3.2* 3.1* 3.9 CL 112* 109* 112* CO2 23 23 24 BUN 19 20 19 CREATININE 1.05 1.12 1.03 GLUCOSE 113 139* 151* CALCIUM 9.0 8.7* 8.4* MG 2.7* 2.1 2.0 PHOS 2.4 -- -- Recent Labs 01/30/25 0701 01/30/25 0810 01/30/25 0915 01/30/25 1005 01/30/25 1109 01/30/25 1154 POCGLU 163* 129* 126* 114* 120* 128* Current Nutrition Therapies: Adult diet Regular; No Added Salt (3-4 gm); 5 carb choices (75 gm/meal) Anthropometric Measures: Height: 193 cm (6' 4) Current Body Weight: 93.2 kg (205 lb 7.5 oz) Admission Body Weight: 88.9 kg (196 lb) [place] Body Weight (lbs) (Calculated): 202 lbs [place] Body Weight (Kg) (Calculated): 92 kg % [place] Body Weight (Calculated): 101.7 % BMI (kg/m2) (Calculated): 25 BMI Categories: Overweight (BMI 25.0-29.9) Wt Readings from Last 10 Encounters: 01/30/25 93.2 kg (205 lb 7.5 oz) 01/20/25 88.9 kg (196 lb) 01/14/25 91.6 kg (202 lb) Nutrition Diagnosis: Increased nutrient needs related to increase demand for energy/nutrients as evidenced by (surgical wounds s/p open heart surgery) Nutrition Interventions: Food and/or Nutrient Delivery: Continue Current Diet, Start Oral Nutrition Supplement Nutrition Education/Counseling: Education needed, Education initiated Coordination of Nutrition Care: Continue to monitor while inpatient Goals: Goals: PO intake 75% or greater, by next RD assessment Nutrition Monitoring and Evaluation: Behavioral-Environmental Outcomes: Knowledge or Skill Food/Nutrient Intake Outcomes: Food and Nutrient Intake, Supplement Intake Physical Signs/Symptoms Outcomes: Biochemical Data, GI Status, Fluid Status or Edema, Nutrition Focused Physical Findings, Skin, Weight Discharge Planning: Too soon to determine Sarah Tom RD, LD Contact: *[phone] or via [employer] chat [1] acetaminophen, 1,000 mg, Oral, q8h aspirin, 81 mg, Oral, Daily ceFAZolin, 2,000 mg, IntraVENous, q8h chlorhexidine, , Topical, Daily chlorhexidine, 15 mL, Mouth/Throat, BID enoxaparin, 40 mg, SubCUTAneous, Daily ezetimibe, 10 mg, Oral, Nightly Lidocaine, 1 patch, Topical, Daily metoprolol tartrate, 12.5 mg, Oral, BID mupirocin, , Nasal, BID pantoprazole, 40 mg, Oral, qAM AC polyethylene glycol (PEG) 3350, 17 g, Oral, Daily senna-docusate sodium, 2 tablet, Oral, Nightly sodium chloride 0.9%, 5-40 mL, IntraCATHeter, q8h [2] insulin regular, 0.5-50 Units/hr, Last Rate: 2 Units/hr (01/30/25 1154) lactated ringers, 250 mL, Last Rate: Stopped (01/30/25 0254) sodium chloride, 20 mL/hr, Last Rate: 20 mL/hr (01/29/25 1730) Associated Order(s): IP CONSULT TO CARDIAC REHAB Received referral and reviewed chart. Unable to discuss Phase II Cardiopulmonary Rehab Referral with Ryan Macedo at this time. Will follow to discuss program when appropriate. Patient will be contacted at home if discharged prior to discussion. Associated Order(s): IP CONSULT TO ENDOCRINOLOGY Department of Internal Medicine Division of Endocrinology, Diabetes, & Metabolism Endocrinology Note Patient Name: Ryan Macedo : 1955 AGE: 69 y.o. Room/Bed: [facility]121/[facility] A Admission Date: 01/29/2025 Visit Date: 01/30/2025 Reason for Endocrine Consult: post heart Provider/Team Requesting Consult: cts PCP: MIRIAM GOMEZ Outpt Travel Assistant: No ASSESSMENT: Stress hyperglycemia DM2 with hyperglycemia without exterminator termite insulin CABGx3 Htn/hld/cad PLAN: For now continue on insulin drip Will watch trends closely to see if we can transition off later today Check A1c level ICU goal <180 GMF goal <150 POCT BG ACHS Hypoglycemia management per protocol Carb controlled diet ANTICIPATED ENDOCRINE HOME GOING RECOMMENDATIONS: Optimized for Discharge from Endocrine standpoint: No Home Going Endocrine Rx Recommendations-- TBD-Home regimen glimepiride, metformin, Ozempic Consider SGLT2 possibly Has home glucometer Outpt Follow Up-- PCP SUBJECTIVE/HPI: CHIEF COMPLAINT: No chief complaint on file. S/p CABGx3 Noted hx of DM2 upon chart review, sees PCP for this. Not on insulin only oral medications No history of thyroid disease BGL below Stable on insulin gtt 3/hr No A1c in chart or Care Everywhere order placed to check lab level add on No pressors are currently on Patient is awake alert extubated VSS RA Family in room Confirmed his home diabetes medication regimen, sees PCP for this He is already on a GLP-1, states he has never been on Jardiance or Farxiga before Has a home glucometer, states that his ranges between 80-100 recently, no noted lows Did have some nausea vomiting this morning, had a few bites of breakfast X 2 chest tubes are in place Spoke with team Type of DM: 2 Onset of DM: Over 25 years ago Home DM Medication Regimen: glimipiride 2 mg daily, metformin 500 mg tid (2 tabs a.m., 1 tab lunch, 2 tabs p.m.), ozempic 1 mg weekly on Wednesdays DM control (last A1c/glucose data): No results found for: HGBA1C Glucose Date/Time Value Ref Range Status 01/30/2025 09:15 AM 126 (H) 70 - 100 mg/dL Final 01/30/2025 08:10 AM 129 (H) 70 - 100 mg/dL Final 01/30/2025 07:01 AM 163 (H) 70 - 100 mg/dL Final 01/30/2025 06:23 AM 171 (H) 70 - 100 mg/dL Final 01/30/2025 05:27 AM 130 (H) 70 - 100 mg/dL Final 01/30/2025 04:00 AM 145 (H) 70 - 100 mg/dL Final Review of Systems ROS negative except for those mentioned in HPI. OBJECTIVE: Vitals: 01/30/25 0601/30/25 0701/30/25 0801/30/25 0810 BP: 138/75 144/73 127/66 BP Location: Right arm Patient Position: Sitting Pulse: 82 77 74 Resp: 18 15 12 Temp: (!) 35.9 C (96.7 F) TempSrc: Temporal SpO2: 97% 93% 98% Weight: Height: Physical Exam Vitals and nursing note reviewed. Constitutional: General: He is not in acute distress. Appearance: He is ill-appearing. He is not toxic-appearing or diaphoretic. HENT: Mouth/Throat: Mouth: Mucous membranes are moist. Cardiovascular: Rate and Rhythm: Normal rate. Pulmonary: Effort: Pulmonary effort is normal. Abdominal: Tenderness: There is no guarding. Musculoskeletal: Cervical back: Normal range of motion. Skin: General: Skin is warm and dry. Coloration: Skin is pale. Comments: Intact incision Neurological: Mental Status: He is oriented to person, place, and time. Mental status is at baseline. Psychiatric: Mood and Affect: Mood normal. Behavior: Behavior normal. 24 hour intake/output: Intake/Output Summary (Last 24 hours) at 01/30/2025924 Last data filed at 01/30/2025 09 Gross per 24 hour Intake 4395 ml Output 3693 ml Net 702 ml Diet: Adult diet Regular; No Added Salt (3-4 gm); 5 carb choices (75 gm/meal) Medications (as per EMR): HomeMeds: Current Outpatient Medications Medication Instructions aspirin 81 mg, Daily cholecalciferol (VITAMIN D-3) 50 mcg, Daily coenzyme Q-10 100 mg, Daily dilTIAZem CD (CARDIZEM CD) 360 mg, Daily ezetimibe (ZETIA) 10 mg, Daily famotidine (PEPCID) 40 mg, Daily PRN glimepiride (AMARYL) 2 mg, Daily hydroCHLOROthiazide (HYDRODIURIL) 25 mg, Daily losartan (COZAAR) 100 mg, Daily metFORMIN (GLUCOPHAGE) 500 mg, 3 times daily with meals Multiple Vitamin (multivitamin) tablet 1 tablet, Daily mupirocin (Bactroban) 2 % ointment Using a q-tip, place small fingertip size amount into each nostril the night before surgery. Do not occlude nasal passage. Ozempic (1 MG/DOSE) 1 mg, Weekly Scheduled Meds:Scheduled Meds[1] Continuous Infusions:Continuous Meds[2] PRN Meds:PRN Meds[3] Diagnostic Workup: I reviewed pertinent Laboratory results, Radiographic results, and Other Clinical Notes at the time of today's encounter. Labs: No components found for: LABA1C No components found for: EAG Lab Results Component Value Date NA 141 01/30/2025 K 3.9 01/30/2025 CL 112 (H) 01/30/2025 CO2 24 01/30/2025 BUN 19 01/30/2025 CREATININE 1.03 01/30/2025 GLUCOSE 151 (H) 01/30/2025 CALCIUM 8.4 (L) 01/30/2025 No results found for: CHLPL, CHOL No results found for: TRIG No results found for: HDL No results found for: LDLCALC No results found for: VLDL No results found for: CHOLHDLRATIO No results found for: [id number] No results found for: TSH, H5YWXKW, I2PMWGA, THYROIDAB Radiology reportsas per the Radiologist Radiology: Transesophageal echocardiogram (ANA M) with contrast and 3D PRN Result Date: 01/30/2025 Left Ventricle: Left ventricle size is normal. Mildly increased wall thickness. Low normal left ventricular systolic function. The EF by visual approximation is 50%. Normal wall motion. Right Ventricle: Right ventricle size is normal. Normal systolic function. Left Atrium: Windsock appendage. No left atrial appendage thrombus noted. No left atrial appendage mass noted. No significant valvular abnormalities. POCT glucose meter Result Date: 01/30/2025 Performed by: [address] [address] CLIA ID: [id number] POCT glucose meter Result Date: 01/30/2025 Performed by: [address] [address] CLIA ID: [id number] ECG 12 lead Sinus rhythm Lateral infarct, acute Borderline ST elevation, anterior leads POCT glucose meter Result Date: 01/30/2025 Performed by: [facility], [address] [place] [address] CLIA ID: [id number] POCT glucose meter Result Date: 01/30/2025 Performed by: [facility], [address] [place] [address] CLIA ID: [id number] XR chest 1 view Result Date: 01/30/2025 [facility] Name[facility] 1955 [id number] Exam Date/Time: 01/30/2025 05:12 Procedure: XR CHEST 1 VIEW Ordering Provider: SHEIKH ANDREW Reason For Exam: Shortness of breath CHEST - PORTABLE: CLINICAL INDICATION: Shortness of breath. TECHNIQUE: Portable AP COMPARISON: One day ago FINDINGS: Tubes, lines and devices: Right jugular venous catheter along with the mediastinal drain and chest tubes Heart/Mediastinum: Unchanged Lungs/Pleura: Atelectasis at the left lung base. No other consolidation or pneumothorax. Costophrenic angles are sharp. Tubes in adequate position. Left basilar atelectasis Report Dictated on Electronically Signed By: Edmundo Cordoba MD Electronically Signed Date/Time: 01/30/2025 6:18 AM EDT POCT glucose meter Result Date: 01/30/2025 Performed by: [facility], [address] [place] [address] CLIA ID: [id number] POCT glucose meter Result Date: 01/30/2025 Performed by: [address] [address] CLIA ID: [id number] POCT glucose meter Result Date: 01/30/2025 Performed by: [facility], [address] [place] [address], [place] [address] CLIA ID: [id number] POCT glucose meter Result Date: 01/30/2025 Performed by: [facility], [address] [place] [address], [place] [address] CLIA ID: [id number] POCT glucose meter Result Date: 01/30/2025 Performed by: [facility], [address] [place] [address], [place] [address] CLIA ID: [id number] POCT glucose meter Result Date: 01/30/2025 Performed by: [facility], [address] [place] [address], [place] [address] CLIA ID: [id number] POCT glucose meter Result Date: 01/29/2025 Performed by: [facility], [address] [place] [address], [place] [address] CLIA ID: [id number] POCT glucose meter Result Date: 01/29/2025 Performed by: [facility], [address] [place] [address], [place] [address] CLIA ID: [id number] POCT glucose meter Result Date: 01/29/2025 Performed by: [facility], [address] [place] [address], [place] [address] CLIA ID: [id number] XR chest 1 view Result Date: 01/29/2025 Patient Name: RYAN MACEDO : 1955 [facility]#: [id number] Exam Date/Time: 01/29/2025 20:00 Procedure: XR CHEST 1 VIEW Ordering Provider: YOUSSEF RYAN Reason For Exam: monitoring for PTX SINGLE FRONTAL VIEW OF THE CHEST CLINICAL INDICATION: monitoring for PTX TECHNIQUE: Single frontal view of the chest COMPARISON: Earlier today FINDINGS: Small right-sided pneumothorax not significantly changed. RIGHT central venous catheter tip in the SVC. Status post CABG. Bibasilar chest tubes. Mediastinal drain. LEFT basilar atelectasis. Mild cardiac enlargement. Scoliosis convex to the RIGHT. 1. Tubes and lines as described. Small right-sided pneumothorax not significantly different. LEFT basilar atelectasis. Report Dictated on Electronically Signed By: Tony Ziegler MD Electronically Signed Date/Time: 01/29/2025 8:54 PM EDT POCT glucose meter Result Date: 01/29/2025 Performed by: [address] [address] CLIA ID: [id number] POCT glucose meter Result Date: 01/29/2025 Performed by: [address] [address] CLIA ID: [id number] XR chest 1 view Result Date: 01/29/2025 Patient Name: RYAN MACEDO : 1955 Exam Date/Time: 01/29/2025 16:37 Procedure: XR CHEST 1 VIEW Ordering Provider: SHEIKH ANDREW Reason For Exam: Post op open heart surgery; ETT placement Gender: Male Age: 69 years History: Post op open heart surgery; ETT placement Exam: XR CHEST 1 VIEW COMPARISON: None. FINDINGS: The endotracheal tube tip is approximately 4 cm above the level of the scott. A right IJ vascular catheter tip overlies the superior vena cava. The endotracheal tube tip is below the hemidiaphragm but excluded from [id number]. A mediastinal drain and bilateral chest tubes are present. The trachea is midline. Median sternotomy wires and clips are present. The heart is not enlarged. A small right apical pneumothorax is present, likely postsurgical in etiology. There is no confluent consolidation or sizable pleural effusion. 1. Postsurgical changes (CABG). 2. Small right apical pneumothorax (likely postsurgical). Bilateral chest tubes and mediastinal drain present. 3. Support devices, as above.. Report Dictated on Electronically Signed By: Angela Arias MD Electronically Signed Date/Time: 01/29/2025 5:31 PM EDT POCT glucose meter Result Date: 01/29/2025 Performed by: [facility], [address] [place] [address] CLIA ID: [id number] ECG 12 lead Sinus rhythm Borderline prolonged NV interval NS ST changes diffusely Electronically Signed On 01-29-2025 16:38:12 EDT by Lorne Staton POCT glucose meter Result Date: 01/29/2025 Performed by: [address] [address] CLIA ID: [id number] POCT glucose meter Result Date: 01/29/2025 Performed by: [facility], [address] [place] [address] CLIA ID: [id number] History/Other: Past Medical History: Medical History[4] Past Surgical History: Surgical History[5] Allergy(ies): Allergies[6] Family History: Family History[7] Social History: Social History[8] Portions of the information within this encounter were entered using an electronic dictation system. Best attempts were made to edit/proofread the information prior to note completion. Despite the review of information, some errors may remain. If there are questions related to the information contained within the note please contact the signing physician directly. I spent 75 minutes with the pt which involved coordination of care, medical evaluation, review of records, and/or counseling of the pt regarding his/her condition/disease state/prognosis on the date of this note. [1] acetaminophen, 1,000 mg, Oral, q8h aspirin, 81 mg, Oral, Daily ceFAZolin, 2,000 mg, IntraVENous, q8h chlorhexidine, , Topical, Daily chlorhexidine, 15 mL, Mouth/Throat, BID enoxaparin, 40 mg, SubCUTAneous, Daily ezetimibe, 10 mg, Oral, Nightly Lidocaine, 1 patch, Topical, Daily metoprolol tartrate, 12.5 mg, Oral, BID mupirocin, , Nasal, BID pantoprazole, 40 mg, Oral, qAM AC polyethylene glycol (PEG) 3350, 17 g, Oral, Daily senna-docusate sodium, 2 tablet, Oral, Nightly sodium chloride 0.9%, 5-40 mL, IntraCATHeter, q8h [2] insulin regular, 0.5-50 Units/hr, Last Rate: 3 Units/hr (01/30/25 0916) lactated ringers, 250 mL, Last Rate: Stopped (01/30/25 0254) sodium chloride, 20 mL/hr, Last Rate: 20 mL/hr (01/29/25 1730) [3] PRN medications: albumin human, calcium gluconate, dextrose, dextrose, glucagon (rDNA), glucose, HYDROmorphone OR HYDROmorphone, ipratropium-albuterol, lactated ringers, magnesium hydroxide, magnesium sulfate OR magnesium sulfate, methocarbamol, naloxone, ondansetron ODT OR ondansetron, oxyCODONE OR oxyCODONE, potassium chloride OR potassium chloride OR potassium chloride, potassium chloride CR, prochlorperazine, sodium chloride 0.9% [4] Past Medical History: Diagnosis Date Diabetes mellitus (HCC) GERD (gastroesophageal reflux disease) Gout History of kidney stones Hyperlipidemia Hypertension Lumbar stenosis Osteoarthritis PONV (postoperative nausea and vomiting) [5] Past Surgical History: Procedure Laterality Date BACK SURGERY lumbar KNEE SURGERY Right arthroscopy for meniscus tear ROTATOR CUFF REPAIR Left [6] Allergies Allergen Reactions Enalapril Cough Rosuvastatin Other Reaction(s): fatigue Pravastatin Other Reaction(s): fatigue [7] Family History Problem Relation Name Age of Onset Diabetes Mother Coronary artery disease Father Melanoma Father Heart Surgery Father Coronary artery disease Brother [8] Social History Tobacco Use Smoking status: Never Smokeless tobacco: Never Vaping Use Vaping status: Never Used Substance Use Topics Alcohol use: Never Drug use: Never Cosigned by Olaf Schaeffer at 01/30/2025 1:28 PM EDT Associated attestation - Olaf Schaeffer - 01/30/2025 1:28 PM EDT I discussed management with the Nurse Practitioner (SAS CLINICAL PROGRAMMER). I reviewed the SAS CLINICAL PROGRAMMER's note and agree with the documented findings and plan of care. Thank you so much for the consult. Should you have any questions please don t hesitate to contact us. Images from the original note were not included. [facility]: Critical Care Consultation Note Date: 01/29/25 PATIENT NAME: Ryan Macedo : 1955 (69 y.o.) Reason for Consult: Critical Care & Vent Management Cardiology: Dr. Williamson HPI: 69 y.o.male with pmHx of GERD, HTN, HLD, OA, Gout and DM was seen in the OP setting by CTS for potential CABG. Initially patient underwent a stress test which was suggestive of ischemia at a moderate workload. He then underwent a cardiac cath which noted: MVCAD with severe disease involving the circumflex and RCA, moderately severe disease involving the LAD and mild LV systolic dysfunction. He consented and was taken to the operating room on 01/29/25 for CABG x [address] Herrera. Surgery: : s/p CABGx[address] Herrera Interval History: 01/29/25: POD #0: Patient arrived to the unit, intubated and sedated. Surgical hand off completed below. Surgery Hand Off: Arrival Time in CTVICU: 1613 Complications/Pertinent Events: none noted Last Paralytic:1345 Medications given in route: none noted Gtts OR report Propofol: 50 Insulin: 2.5 Amicar: 29 Current gtts upon arrival Propofol: 50 Insulin: 2.5 Amicar: 29 Devices: Epicardial wires: yes [] no [x] Blood Transfusions Intra Op: yes [] no [x] CellSaver: yes Additional Interventions/Misc during Handoff None noted Review of Systems Unable to perform ROS: Intubated Allergies: Enalapril, Rosuvastatin, and Pravastatin Past Medical History: has a past medical history of Diabetes mellitus (HCC), GERD (gastroesophageal reflux disease), Gout, History of kidney stones, Hyperlipidemia, Hypertension, Lumbar stenosis, Osteoarthritis, and PONV (postoperative nausea and vomiting). Past Surgical History: has a past surgical history that includes Back surgery; Knee surgery (Right); and Rotator cuff repair (Left). Social History: reports that he has never smoked. He has never used smokeless tobacco. He reports that he does not drink alcohol and does not use drugs. Family History: family history includes Coronary artery disease in his brother and father; Diabetes in his mother; Heart Surgery in his father; Melanoma in his father. Medications: Prior to Admission medications Medication Sig Start Date End Date Taking? Authorizing Provider aspirin 81 MG EC tablet Take 81 mg by mouth daily. 12/11/24 Yes Historical Provider, dilTIAZem CD (Cardizem CD) 360 MG 24 hr capsule Take 360 mg by mouth daily. 07/31/24 Yes Historical Provider, ezetimibe (Zetia) 10 MG tablet Take 10 mg by mouth daily. Yes Historical Provider, famotidine (Pepcid) 40 MG tablet Take 40 mg by mouth Daily as needed for indigestion or heartburn. 12/11/24 Yes Historical Provider, glimepiride (Amaryl) 2 MG tablet Take 2 mg by mouth daily. Yes Historical Provider, hydroCHLOROthiazide (HYDRODiuril) 25 MG tablet Take 25 mg by mouth daily. 12/30/24 Yes Historical Provider, losartan (Cozaar) 100 MG tablet Take 100 mg by mouth daily. 12/11/24 Yes Historical Provider, mupirocin (Bactroban) 2 % ointment Using a q-tip, place small fingertip size amount into each nostril the night before surgery. Do not occlude nasal passage. 01/14/25 Yes Angela Mandel, OUTDOOR FITNESS TRAINER - ELECTRICAL ENGINEERING PROFESSOR cholecalciferol (Vitamin D-3) 50 MCG (1999) capsule Take 50 mcg by mouth daily. 12/11/24 Historical Provider, coenzyme Q-10 100 MG capsule Take 100 mg by mouth daily. 12/11/24 Historical Provider, metFORMIN (Glucophage) 500 MG tablet Take 500 mg by mouth 3 times daily (with meals). Historical Provider, Multiple Vitamin (multivitamin) tablet Take 1 tablet by mouth daily. Historical Provider, Ozempic, 1 MG/DOSE, 4 MG/3ML solution pen-injector Inject 1 mg under the skin 1 (one) time per week. Tuesdays pm or Wednesdays am Historical ProviderMD Objective: BP (!) 149/82 Pulse 74 Temp (!) 35.6 C (96.1 F) Resp 16 Ht 6' 4 (1.93 m) Wt 196 lb (88.9 kg) SpO2 99% BMI 23.86 kg/m Intake/Output Summary (Last 24 hours) at 01/29/2025 1600 Last data filed at 01/29/2025 1557 Gross per 24 hour Intake 1358 ml Output 730 ml Net 628 ml Physical Exam Constitutional: Interventions: He is sedated and intubated. HENT: Mouth/Throat: Comments: ETT in place Neck: Vascular: No JVD. Trachea: Trachea normal. Cardiovascular: Rate and Rhythm: Normal rate and regular rhythm. Pulses: Radial pulses are 2+ on the right side and 2+ on the left side. Heart sounds: Normal heart sounds, S1 normal and S2 normal. Pulmonary: Effort: He is intubated. Breath sounds: Decreased breath sounds present. Abdominal: General: Bowel sounds are absent. Genitourinary: Comments: Sanchez catheter to straight drain Musculoskeletal: Right lower leg: No edema. Left lower leg: No edema. Skin: Findings: Bruising and ecchymosis present. Comments: Surgical dressing dry and intact Diagnostics: Reviewed in EMR Labs: Reviewed in EMR BMP: Recent Labs 01/29/25 1022 NA 140 K 3.4* CL 108* CO2 25 BUN 21 CREATININE 1.21 CALCIUM 9.0 CBC: Recent Labs 01/29/25 1022 WBC 5.5 HGB 12.9* HCT 37.9* PLT 261 MCV 90.9 RDW 12.4 INR: Recent Labs 01/29/25 1022 INR 1.1 Assessment: MVCAD s/p CABGx3 GERD HTN HLD OA DM Post operative Pulm Management: Normal Post-operative Course Post-operative Atrial Fibrillation: []Yes [x] No Acute blood loss anemia Plan: - Sugamadex - Hemodynamic goals: SBP 90-130 mmHg, MAP 60-75 - PRN Hypertension Nipride -PRN Hypotension Levophed gtt - Chest tubes: no air leak or fluctuation noted, suction - Cefazolin - surgical prophy for 5 doses total - Wean to Extubation: Arrival Time in unit: 1613 - Vent: ACVC+, TV 6ml/kg/min, rate 12, fio2 100% PEEP 8 VAP protocol: HOB >30 degrees; peridex BID - Insulin gtt; per endo/protocol - GI prophy: Protonix IV daily Critical Care time spent 15 minutes. The time involved in the performance of this care was exclusive of separately billable procedures, teaching time and treating other patients. The time was spent personally by myself for the following activities: examination of the patient, ordering and/or performing treatment, reviewing the laboratory and radiographic studies, and if applicable, ventilator management and blood gas interpretation. Patient treatment plan and plan of care discuss with Dr. Sunny Youssef Cosigned by Sunny Youssef DO at 01/29/2025 6:18 PM EDT Associated attestation - Sunny Youssef DO - 01/29/2025 6:18 PM EDT I have personally performed a [id number] diagnostic evaluation on this patient on date of service 01/29/25. History, labs, imaging studies, and electronic medical record have been reviewed by me. This note documented by the []Critical Care Fellow []store warehouse associate [x]KIM reflects my history, exam, and medical decision making. I have reviewed and agree with the care plan. Changes were made in the orders as necessary. ROS documentation was reviewed and negative unless otherwise stated in HPI. Additional pertinent interval history, ROS, and physical exam findings: AdmitDate = 01/29/2025 LOS: 0 POD0 CABGx3 for MVCAD. Agree w/ remainder of info in KIM consult note. Assessment: MVCAD s/p CABGx3 Post op pulm mgmt. T2DM with stress hyperglyemia HTN Gerd Plan: Agree with plan in kim note. Attempt to fast track extubation in 6 hr window. Repeat CXR at 1999 for PTX monitoring. Pt has CT's in place. Disposition: in HLU post op Critical Care Time: 25min Or Noncritical Care Time: n/a Total time caring for this patient including direct patient contact, review of data including imaging and labs, discussions with other team members and physicians, excluding procedures. documented in this encounter [facility] 01-31-2025 Note Care Management Prog ress Note Short Medical why still here: Tcc chart review complete, ot eval pend, iv amio and insulin, right internal jugular triple lumen, right internal jugular introducer, sanchez, chest tube x3, HR and BP elevated, tcc to follow Planned Discharge Disposition: Home or Self Care Barriers/Today we still Wait: Administering IV medications, Clinical stability, Assistant Laboratory Director recommendations (comment), Symptomatic control Length of Stay (Days): 2 GMLOS: 5.8 [facility] 01-31-2025 Note Cardiothoracic Surge ry/CCM Progress Note PATIENT NAME: Ryan Macedo DATE: 01/31/25 HPI: 69 y.o.male with pmHx of GERD, HTN, HLD, OA, Gout and DM was seen in the OP setting by CTS for potential CABG. Initially patient underwent a stress test which was suggestive of ischemia at a moderate workload. He then underwent a cardiac cath which noted: MVCAD with severe disease involving the circumflex and RCA, moderately severe disease involving the LAD and mild LV systolic dysfunction. He consented and was taken to the operating room on 01/29/25 for CABG x [address] Herrera. Surgery/Procedure: 01/29/25- CABG x3 (FAIR-LAD, SVG-OM1, SVG-RPDA), LLE EVH with Dr. Herrera Interval History: 01/31/25, POD# 2: In Afib RVR this am. Other VSS, afebrile, on RA. Resting in bed, states he was up to the chair from 2-5am. Nausea has improved. Review of Systems Constitutional: Positive for activity change, appetite change and fatigue. Negative for diaphoresis and fever. Respiratory: Negative for cough, shortness of breath and wheezing. Cardiovascular: Negative for chest pain, palpitations and leg swelling. Gastrointestinal: Positive for nausea and vomiting. Negative for abdominal distention and abdominal pain. Skin: Negative for color change, pallor and rash. Objective: CT output cc/24hrs: 620 mL UO cc/24hrs: 708 mL Vitals: BP: 132/67, MAP (mmHg): 86, BP Method: Automatic Heart Rate: 104 Resp: 19 Temp: 36.2 ?C (97.2 ?F), Temp Source: Temporal BMI (Calculated): 26.77 CXR: BMP: Recent Labs 01/29/25 1521 01/29/25 1748 01/30/25 0021 01/31/25 0411 NA 143 143 141 139 K 3.2* 3.1* 3.9 3.5 CL 112* 109* 112* 106 CO2 24 BUN 19 20 19 20 CREATININE 1.05 1.12 1.03 1.06 CALCIUM 9.0 8.7* 8.4* 9.1 MG 2.7* 2.1 2.0 1.9 PHOS 2.4 -- -- -- CBC: Recent Labs 01/29/25 1748 01/30/25 0021 01/31/25 0411 WBC 9.8 8.6 11.3* HGB 9.6* 8.9* 9.3* HCT 29.2* 26.9* 28.5* PLT 164 151 170 MCV 95.1 92.8 95.3 RDW 12.5 12.5 13.0 INR: Recent Labs 01/29/25174701/30/25 0021 01/31/251 INR 1.3* 1.2* 1.2* Physical Exam Cardiovascular: Rate and Rhythm: Tachycardia present. Rhythm irregular. Heart sounds: No murmur heard. Friction rub present. Pulmonary: Effort: Pulmonary effort is normal. Breath sounds: No decreased breath sounds, wheezing or rhonchi. Abdominal: General: Bowel sounds are normal. Palpations: Abdomen is soft. Tenderness: There is no abdominal tenderness. Genitourinary: Comments: Sanchez catheter to straight drain Musculoskeletal: Right lower leg: No edema. Left lower leg: No edema. Skin: General: Skin is warm and dry. Capillary Refill: Capillary refill takes less than 2 seconds. Findings: Bruising and ecchymosis present. Comments: Surgical Incisions: well approximate; clean dry with no drainage noted. Surrounding skin no redness, warmth, or signs of infection noted. Neurological: Mental Status: He is alert. Psychiatric: Behavior: Behavior is cooperative. Assessment: MVCAD s/p CABGx3 GERD HTN HLD OA DM Post operative Pulm Management: Normal Post-operative Course Post-operative Atrial Fibrillation: []Yes [x] No Acute blood loss anemia Plan: Patient status: tele Medications: ASA/Zetia BB- increased Metoprolol 25mg BID Amio bolus/gtt Lasix 40mg IVP x1 Bowel regimen: Miralax, senna GI prophy: PO protonix DVT prophy:TEDs, SCDs, and Lovenox SubQ Interventions: D/C sanchez Encourage progressive mobility Pulmonary hygiene: IS and Acapella Consults: Endocrine following for insulin management PT/OT: needs assessment TCC/Discharge Planning TBD Central Line: [x]Yes [] No Arterial Line: []Yes [x] No Sanchez: [x]Yes [] No Restraints: []Yes [x] No Patient discussed and plan of day developed from multidisciplinary rounds between Cardiothoracic Surgery (Cardiothoracic Surgeon, KIM) and Critical Care Attending Tele Status A total of 33 minutes were spent between the herg-sp-eviv encounter, physical exam, reviewing the medical history, coordinating the patient's care, counseling/educating the patient, ordering medications/test/procedures, interpreting results and documenting clinical information in the patients electronic health record on the day of the encounter. The patient was seen and examined Cardiac Core Medications: ASA, BB, and No statin due to allergy EF: LVEF- 55% preop Blood Conservation: None noted in post-operative period Process Safety Management Engineer: [facility] 01-30-2025 Note Nutrition Assessment Type and Reason for Visit: Initial, Consult, Patient Education (s/p open heart surgery) Nutrition Recommendations/Plan: Continue 5 carb choices (75 g/meal) JESSICA diet as ordered. Per MNT protocol, will order Glucerna Shake BID to promote post-op PO intake and healing. Heart healthy diet information is added to pt's discharge information. Will assess diet education needs at follow up visit as today is POD 1. RD will monitor overall nutrition status and will follow weekly. Malnutrition Assessment: Malnutrition Status: At risk for malnutrition (Comment) (N/V s/p open heart surgery) Nutrition Assessment: Per chart: pt with pmHx of GERD, HTN, HLD, OA, Gout and DM was seen in the OP setting by CTS for potential CABG. Initially patient underwent a stress test which was suggestive of ischemia at a moderate workload. He then underwent a cardiac cath which noted: MVCAD with severe disease involving the circumflex and RCA, moderately severe disease involving the LAD and mild LV systolic dysfunction. He consented and was taken to the operating room on 01/29/25 for CABG x [address] Herrera. POD# 1. Extubated with diet ordered. Noted N/V epsiodes overnight. Estimated Daily Nutrient Needs: Energy Requirements Based On: Kcal/kg Weight Used for Energy Requirements: [place] Weight for Energy Calculation (kg): 91.6 kg (25-30 kcal/kg) Total Energy Requirements (kcals/day): 7034-4752 Weight Used for Protein Requirements: [place] Weight in Kg Used for Protein Requirements: 91.6 kg (1.2-1.5 g/kg) Estimated Total Protein (g/day): 110-137 Estimated Daily Total Fluid (ml/day): per MD Nutrition Related Findings: Marcin Scale Score: 18. Wound Type: Surgical Incision Net IO Since Admission: 567 mL [01/30/25 1235] Edema: RUE Edema: None, LUE Edema: None, RLE Edema: None, LLE Edema: None Bowel Sounds (All Quadrants): Hypoactive Abdomen Inspection: Soft O2 Delivery Method: Nasal cannula, FiO2 (%): 40 %, O2 Flow Rate (L/min): 1 L/min Labs and meds reviewed: Scheduled Meds[1] Continuous Meds[2] BMP: Recent Labs 01/29/25 1521 01/29/25 1748 01/30/25 0021 NA 143 143 141 K 3.2* 3.1* 3.9 CL 112* 109* 112* CO2 23 23 24 BUN 19 20 19 CREATININE 1.05 1.12 1.03 GLUCOSE 113 139* 151* CALCIUM 9.0 8.7* 8.4* MG 2.7* 2.1 2.0 PHOS 2.4 -- -- Recent Labs 01/30/25 0701 01/30/25 0810 01/30/25 0915 01/30/25 1005 01/30/25 1109 01/30/25 1154 POCGLU 163* 129* 126* 114* 120* 128* Current Nutrition Therapies: Adult diet Regular; No Added Salt (3-4 gm); 5 carb choices (75 gm/meal) Anthropometric Measures: Height: 193 cm (6' 4) Current Body Weight: 93.2 kg (205 lb 7.5 oz) Admission Body Weight: 88.9 kg (196 lb) [place] Body Weight (lbs) (Calculated): 202 lbs [place] Body Weight (Kg) (Calculated): 92 kg % [place] Body Weight (Calculated): 101.7 % BMI (kg/m2) (Calculated): 25 BMI Categories: Overweight (BMI 25.0-29.9) Wt Readings from Last 10 Encounters: 01/30/25 93.2 kg (205 lb 7.5 oz) 01/20/25 88.9 kg (196 lb) 01/14/25 91.6 kg (202 lb) Nutrition Diagnosis: Increased nutrient needs related to increase demand for energy/nutrients as evidenced by (surgical wounds s/p open heart surgery) Nutrition Interventions: Food and/or Nutrient Delivery: Continue Current Diet, Start Oral Nutrition Supplement Nutrition Education/Counseling: Education needed, Education initiated Coordination of Nutrition Care: Continue to monitor while inpatient Goals: Goals: PO intake 75% or greater, by next RD assessment Nutrition Monitoring and Evaluation: Behavioral-Environmental Outcomes: Knowledge or Skill Food/Nutrient Intake Outcomes: Food and Nutrient Intake, Supplement Intake Physical Signs/Symptoms Outcomes: Biochemical Data, GI Status, Fluid Status or Edema, Nutrition Focused Physical Findings, Skin, Weight Discharge Planning: Too soon to determine Sarah Tom RD, LD Contact: *[phone] or via [employer] chat [1] acetaminophen, 1,000 mg, Oral, q8h aspirin, 81 mg, Oral, Daily ceFAZolin, 2,000 mg, IntraVENous, q8h chlorhexidine, , Topical, Daily chlorhexidine, 15 mL, Mouth/Throat, BID enoxaparin, 40 mg, SubCUTAneous, Daily ezetimibe, 10 mg, Oral, Nightly Lidocaine, 1 patch, Topical, Daily metoprolol tartrate, 12.5 mg, Oral, BID mupirocin, , Nasal, BID pantoprazole, 40 mg, Oral, qAM AC polyethylene glycol (PEG) 3350, 17 g, Oral, Daily senna-docusate sodium, 2 tablet, Oral, Nightly sodium chloride 0.9%, 5-40 mL, IntraCATHeter, q8h [2] insulin regular, 0.5-50 Units/hr, Last Rate: 2 Units/hr (01/30/25 1154) lactated ringers, 250 mL, Last Rate: Stopped (01/30/25 0254) sodium chloride, 20 mL/hr, Last Rate: 20 mL/hr (01/29/25 1730) [facility] 01-30-2025 Note PHYSICAL THERAPY [facility] Initial Evaluation Name/MRN: Ryan Macedo ([id number]) Evaluation Date: 01/30/2025 Date of : 1955 Admission Date: 01/29/2025 9:13 AM Age: 69 y.o. Room/Bed: T1-121/T1-121 A Discharge Recommendation: Home with assist PRN, Home with Home health PT Equipment Needed: No Assessment IMPRESSION: Pt is s/p CABG x 3 on 01/30/24. He is currently Min assist for transfers and ambulation with the Talent[employer] cart. Limited d/t fatigue, nausea and SOB. He is Indep at baseline and lives at home with his . Anticipate he will progress throughout LOS to return to home with assist from family and home health PT. Admitting Diagnosis: CAD in [place] artery. S/p CABG x 3 01/29/25 Prognosis: good Performance Deficits /Impairments: Increased Pain, Decreased Functional Mobility, Decreased ADL status, Decreased Endurance, Decreased Balance, and Decreased High Level IADLs Decision Making: Medium Complexity Subjective RN OK with PT to see pt. Pt in the recliner and agreeable to PT. Wishing to lie back down soon. Reported feeling nauseas this morning but does not think he is throwing up anymore. Pain: RN managing pain. Wick-Erickson Pain Ratin = Hurts even more Pain Location: Sternum/ chest tube Past Medical History: Medical History[1] Past Surgical History: Surgical History[2] Admission Diagnosis: Patient Active Problem List Diagnosis Date Noted CAD in [place] artery 01/29/2025 Medical Precautions: No active isolations Proper PPE donned/doffed in accordance with facility standards. Fall Risk: Staley Fall Risk Score: 45 (High Risk) Precautions/Restrictions: Sternal Precautions: No lifting greater than 10 lbs. Ok for modified UE precautions using Keep Your Move in the Tube technique Lines/Drains/Airways: x2 chest tubes, sanchez, tele, on RA initially, R I.I triple lumen Family/Caregiver Present: none Overall Cognitive Status: WNL Overall Orientation Status: Oriented x4 Vision: Not Assessed Hearing: normal Social/Functional History Patient admitted from home. 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: Yes Prior Level of Function Prior Level of ADL Function: Independent Prior Level of Mobility: Independent; Device: None Prior Level of Transfers: Independent Objective Lower Extremity Assessment AROM: WNL PROM: Not assessed this session Strength: WFL Sensation: Not assessed this session Balance: Balance During Session: Posture: good Sitting - Static: Independent Sitting - Dynamic: SBA Standing - Static: Contact Guard Standing - Dynamic: Min Assist- only tolerated standing approx 1 minute with nausea and fatigue Bed Mobility: Sit to supine: Max Assist, x2 Person Assist Increased assist to return to bed d/t pain. Transfers Sit to stand: Min Assist Stand to sit: Min Assist Ambulation Ambulation 1 Assistive device(s) used: Talentoday Assist level: Min Assist Distance (ft): 10 ft around the bed Quality of gait: slow richa, pt reported feeling more fatigued and light headed with nausea. Returned pt to sitting EOB. Pt declined further activity. SpO2 88% on RA after walking, briefly donned 3L/min O2 for recovery but then able to wean back to RA with some seated rest. Outcome Measures AM-PAC How much HELP from another person do you currently need Turning from your back to your side while in a flat bed without using bedrails?: A Little Moving from lying on your back to sitting on the side of a flat bed without using bedrails?: A Lot Moving to and from a bed to a chair (including a wheelchair)?: A Little Standing up from a chair using your arms (wheelchair or bedside chair)?: A Little Walking in a hospital room?: A Little Stair climbing assessed?: No AM-PAC Inpatient Mobility Raw Score (No Stairs) : 14 JH-HLM JH-HLM Scale: Walked 10 steps or more (i.e. walked to restroom) Plan Pt would benefit from skilled acute PT services to address Strengthening, ROM, Gait Training, Balance Training, Self-Care/ADL Training, Functional Mobility Training, Endurance Training, Stair Training, and Positioning. Frequency: 5x/weekfor 2 weeks Barriers: Pain, Impaired balance, Decreased endurance, New weightbearing/ROM restrictions, and Medical complications Safety/Education Safety Safety Devices in place: call light within reach, left in bed, patient at risk for falls, and Left in room with RN Restraints: No Education Education Given To: patient Education Provided: PT Role, PT Goals, Gait Training, Plan of Care, Home Exercise Program, Precautions, Transfer Training, Discharge Recommendations, Benefits o (more content not included)... [facility] 01-30-2025 Note Received referral an d reviewed chart. Unable to discuss Phase II Cardiopulmonary Rehab Referral with Ryan Macedo at this time. Will follow to discuss program when appropriate. Patient will be contacted at home if discharged prior to discussion. [facility] 01-29-2025 Note Formatting of this n ote is different from the original. Addendum created 01/29/252202 by HARMONY Naik CRNA Review and Sign - Ready for Procedure [facility] 01-29-2025 Note Addendum created 2202 by HARMONY Naik CRNA Review and Sign - Ready for Procedure [facility] 01-29-2025 Miscellaneous Notes Addendum created 01/29/252202 by HARMONY Naik CRNA Review and Sign - Ready for Procedure Patient: Ryan Macedo Procedure Summary Date: 01/29/25 Room / Location: [facility] Operating Room Anesthesia Start: 1155 Anesthesia Stop: 1629 Procedures: CORONARY ARTERY BYPASS GRAFT (Chest) ECHOCARDIOGRAM, TRANSESOPHAGEAL Diagnosis: Atherosclerotic heart disease of [place] coronary artery with other forms of angina pectoris (HCC) Surgeons: Ronnie Herrera MD Responsible Provider: Elías Diaz DO Anesthesia Type: general ASA Status: 4 Anesthesia Type: general Vitals Value Taken Time BP 125/78 01/29/25 16:33 Temp 97.3 01/29/25 16:33 Pulse 68 01/29/25 16:33 Resp 18 01/29/25 16:33 SpO2 99 01/29/25 16:33 Anesthesia Post Evaluation Patient location during evaluation: ICU Patient participation: complete - patient cannot participate Level of consciousness: deep sedation Pain management: adequate Airway patency: patent Dental Injury: no Cardiovascular status: acceptable and hemodynamically stable Respiratory status: acceptable, ETT, intubated and ventilator Hydration status: acceptable Nausea/Vomiting: controlled No notable events documented. Patient can be discharged once all PACU criteria has been met. documented in this encounter [facility] 01-29-2025 Note [facility] Respiratory Care Department Progress Note Spontaneous Awakening Trial Wean Screen Safety Screen Spontaneous Breathing Trial (SBT - RT) : Proceed with SBT - No exclusion criteria met (01/29/251727) Spontaneous Breathing Trial Weaning Start Time: 1728 (01/29/251727) Weaning Tidal Volume: 446 mL (01/29/251727) Weaning Respiratory Rate: 17 (01/29/251727) Spontaneous Minute Volume (MV): 7.6 (01/29/251727) Weaning Tolerance: Good (01/29/251727) Weaning Stop Time: 1807 (01/29/251727) Weaning Duration (min): 40 (01/29/251727) Spontaneous Breathing Trial (SBT - RT) Outcome: SBT Passed (01/29/251727) Vent Settings Vent Mode: Spontaneous (01/29/251727) Mandatory Type: VC+ (01/29/251727) Resp Rate (Set): 16 (01/29/251727) Vt (Set, mL): 400 mL (01/29/251727) FiO2 (%): 40 % (01/29/251727) PEEP/CPAP (cm H2O): 8 cm H20 (01/29/251727) Inspiratory Time (sec): 0.9 sec (01/29/251727) Vitals Suctioning/Secretions ABG results Recent Labs 01/29/25 1521 PHART 7.430 XMG6MVO 35.4 PO2ART 324.4* SBL7OTI 23.0 [id number] Ventilator Does this patient meet criteria for termination of mechanical ventilation Yes- Notified physician below Name of physician notified via secure chat or in person : David (NA if patient did not meet criteria) Comments: Thank you for involving [facility] in the care of this patient, [facility] 01-29-2025 Note Formatting of this n ote is different from the original. Patient: Ryan Macedo Procedure Summary Date: 01/29/25 Room / Location: [facility] OR [address] [place] [address] Operating Room Anesthesia Start: 115 Anesthesia Stop: 1628 Procedures: CORONARY ARTERY BYPASS GRAFT (Chest) ECHOCARDIOGRAM, TRANSESOPHAGEAL Diagnosis: Atherosclerotic heart disease of [place] coronary artery with other forms of angina pectoris (HCC) Surgeons: Ronnie Herrera MD Responsible Provider: Elías Diaz DO Anesthesia Type: general ASA Status: 4 Anesthesia Type: general Vitals Value Taken Time BP 125/78 01/29/25 16:33 Temp 97.3 01/29/25 16:33 Pulse 68 01/29/25 16:33 Resp 18 01/29/25 16:33 SpO2 99 01/29/25 16:33 Anesthesia Post Evaluation Patient location during evaluation: ICU Patient participation: complete - patient cannot participate Level of consciousness: deep sedation Pain management: adequate Airway patency: patent Dental Injury: no Cardiovascular status: acceptable and hemodynamically stable Respiratory status: acceptable, ETT, intubated and ventilator Hydration status: acceptable Nausea/Vomiting: controlled No notable events documented. Patient can be discharged once all PACU criteria has been met. T [facility] 01-29-2025 Note Patient: Ryan wiggins Procedure Summary Date: 01/29/25 Room / Location: [address] Operating Room Anesthesia Start: 1154 Anesthesia Stop: 1628 Procedures: CORONARY ARTERY BYPASS GRAFT (Chest) ECHOCARDIOGRAM, TRANSESOPHAGEAL Diagnosis: Atherosclerotic heart disease of [place] coronary artery with other forms of angina pectoris (HCC) Surgeons: Ronnie Herrera MD Responsible Provider: Elías Diaz DO Anesthesia Type: general ASA Status: 4 Anesthesia Type: general Vitals Value Taken Time BP 125/78 01/29/25 16:33 Temp 97.3 01/29/25 16:33 Pulse 68 01/29/25 16:33 Resp 18 01/29/25 16:33 SpO2 99 01/29/25 16:33 Anesthesia Post Evaluation Patient location during evaluation: ICU Patient participation: complete - patient cannot participate Level of consciousness: deep sedation Pain management: adequate Airway patency: patent Dental Injury: no Cardiovascular status: acceptable and hemodynamically stable Respiratory status: acceptable, ETT, intubated and ventilator Hydration status: acceptable Nausea/Vomiting: controlled No notable events documented. Patient can be discharged once all PACU criteria has been met. [facility] 01-29-2025 Anesthesiology Postoperative evaluation and management note Patient: Ryan Macedo Procedure Summary Date: 01/29/25 Room / Location: [place] [address] Operating Room Anesthesia Start: 1155 Anesthesia Stop: 1629 Procedures: CORONARY ARTERY BYPASS GRAFT (Chest) ECHOCARDIOGRAM, TRANSESOPHAGEAL Diagnosis: Atherosclerotic heart disease of [place] coronary artery with other forms of angina pectoris (HCC) Surgeons: Ronnie Herrera MD Responsible Provider: Elías Diaz DO Anesthesia Type: general ASA Status: 4 Anesthesia Type: general Vitals Value Taken Time BP 125/78 01/29/25 16:31 Temp 97.3 01/29/25 16:31 Pulse 68 01/29/25 16:31 Resp 18 01/29/25 16:31 SpO2 99 01/29/25 16:31 Anesthesia Post Evaluation Patient participation: complete - patient cannot participate Level of consciousness: deep sedation Pain management: adequate Multimodal analgesia pain management approach Airway patency: patent Two or more strategies used to mitigate risk of obstructive sleep apnea Respiratory status: ETT and invasive assisted ventilation Cardiovascular status: hemodynamically stable Hydration status: normovolemic PONV: none Comments: Sedated/intubated/ vent report to RN No notable events documented. MIPS #430 PONV Patient received an inhalational anesthetic (2644F) Patient does not exhibit three or more risk factors for PONV (X0430)) Patient received at aset 2 prophylactic Rx PONV anti-emtic agents of different classes preop and/or intraop (G9775) MIPS # 424 Perioperative Temperature Management Anesthesia time was 60 minutes or longer (4255F) Anesthesai administered was General (inhalational or TIVA) or Neuraxial block (X0424) At least one body temperature greater than 95.8F/35.5C achieved within the 30 mins immediately prior to or the 15 minutes immediately following anesthesia end time (G9771) MIPS #477 Multimodal Pain Management Not emergent case Patient was administered multimodal pain management (two or more drugs and/or interventions excluding systemic opioids) in the periopeartive period occurring at some time between 6 hours prior to anesthesia start time until discharged from PACU (G2148) I completed my handoff to the receiving clinician during which we: 1. Identified the patient 2. Identified the responsible provider 3. Reviewed the pertinent medical history 4. Discussed the surgical course 5. Reviewed intra-op anesthesia management and issues during anesthesia 6. Set expectations for post-procedure period 7. Allowed opportunity for questions and acknowledgement of understanding. [facility] Phone: 01-29-2025 Note Patient: Ryan wiggins Procedure Summary Date: 01/29/25 Room / Location: [place] [address] [facility] Operating Room Anesthesia Start: 1155 Anesthesia Stop: 1629 Procedures: CORONARY ARTERY BYPASS GRAFT (Chest) ECHOCARDIOGRAM, TRANSESOPHAGEAL Diagnosis: Atherosclerotic heart disease of [place] coronary artery with other forms of angina pectoris (HCC) Surgeons: Ronnie Herrera MD Responsible Provider: Elías Diaz DO Anesthesia Type: general ASA Status: 4 Anesthesia Type: general Vitals Value Taken Time BP 125/78 01/29/25 16:31 Temp 97.3 01/29/25 16:31 Pulse 68 01/29/25 16:31 Resp 18 01/29/25 16:31 SpO2 99 01/29/25 16:31 Anesthesia Post Evaluation Patient participation: complete - patient cannot participate Level of consciousness: deep sedation Pain management: adequate Multimodal analgesia pain management approach Airway patency: patent Two or more strategies used to mitigate risk of obstructive sleep apnea Respiratory status: ETT and invasive assisted ventilation Cardiovascular status: hemodynamically stable Hydration status: normovolemic PONV: none Comments: Sedated/intubated/ vent report to RN No notable events documented. MIPS #430 PONV Patient received an inhalational anesthetic (4554F) Patient does not exhibit three or more risk factors for PONV (X0430)) Patient received at aset 2 prophylactic Rx PONV anti-emtic agents of different classes preop and/or intraop (G9775) MIPS # 424 Perioperative Temperature Management Anesthesia time was 60 minutes or longer (4255F) Anesthesai administered was General (inhalational or TIVA) or Neuraxial block (X0424) At least one body temperature greater than 95.8F/35.5C achieved within the 30 mins immediately prior to or the 15 minutes immediately following anesthesia end time (G9771) MIPS #477 Multimodal Pain Management Not emergent case Patient was administered multimodal pain management (two or more drugs and/or interventions excluding systemic opioids) in the periopeartive period occurring at some time between 6 hours prior to anesthesia start time until discharged from PACU (G2148) I completed my handoff to the receiving clinician during which we: 1. Identified the patient 2. Identified the responsible provider 3. Reviewed the pertinent medical history 4. Discussed the surgical course 5. Reviewed intra-op anesthesia management and issues during anesthesia 6. Set expectations for post-procedure period 7. Allowed opportunity for questions and acknowledgement of understanding. [facility] 01-29-2025 Surgical operatio n note Patient: Ryan Macedo Procedure Summary Date: 01/29/25 Room / Location: [facility] Operating Room Anesthesia Start: 1155 Anesthesia Stop: 1629 Procedures: CORONARY ARTERY BYPASS GRAFT (Chest) ECHOCARDIOGRAM, TRANSESOPHAGEAL Diagnosis: Atherosclerotic heart disease of [place] coronary artery with other forms of angina pectoris (HCC) Surgeons: Ronnie Herrera MD Responsible Provider: Elías Diaz DO Anesthesia Type: general ASA Status: 4 Anesthesia Type: general Vitals Value Taken Time BP 125/78 01/29/25 16:31 Temp 97.3 01/29/25 16:31 Pulse 68 01/29/25 16:31 Resp 18 01/29/25 16:31 SpO2 99 01/29/25 16:31 Anesthesia Post Evaluation Patient participation: complete - patient cannot participate Level of consciousness: deep sedation Pain management: adequate Multimodal analgesia pain management approach Airway patency: patent Two or more strategies used to mitigate risk of obstructive sleep apnea Respiratory status: ETT and invasive assisted ventilation Cardiovascular status: hemodynamically stable Hydration status: normovolemic PONV: none Comments: Sedated/intubated/ vent report to RN No notable events documented. MIPS #430 PONV Patient received an inhalational anesthetic (4554F) Patient does not exhibit three or more risk factors for PONV (X0430)) Patient received at leaset 2 prophylactic Rx PONV anti-emtic agents of different classes preop and/or intraop (G9775) MIPS # 424 Perioperative Temperature Management Anesthesia time was 60 minutes or longer (4255F) Anesthesai administered was General (inhalational or TIVA) or Neuraxial block (X0424) At least one body temperature greater than 95.8F/35.5C achieved within the 30 mins immediately prior to or the 15 minutes immediately following anesthesia end time (G9771) MIPS #477 Multimodal Pain Management Not emergent case Patient was administered multimodal pain management (two or more drugs and/or interventions excluding systemic opioids) in the periopeartive period occurring at some time between 6 hours prior to anesthesia start time until discharged from PACU (G2148) I completed my handoff to the receiving clinician during which we: 1. Identified the patient 2. Identified the responsible provider 3. Reviewed the pertinent medical history 4. Discussed the surgical course 5. Reviewed intra-op anesthesia management and issues during anesthesia 6. Set expectations for post-procedure period 7. Allowed opportunity for questions and acknowledgement of understanding. Associated Order(s): Central Venous Line Central Venous Line: Date/Time: 01/29/2025 12:25 PM A central venous line was placed in the Procedural for the following indication(s): Sterility preparation included the following: provider hand hygiene performed prior to central venous catheter insertion, all 5 sterile barriers used (gloves, gown, cap, mask, large sterile drape) during central venous catheter insertion, antiseptic used during central venous catheter insertion and skin prep agent completely dried prior to procedure. Medical reason for not performing maximal sterile barrier technique: no The patient was placed in Trendelenburg position. Right The site was prepped with Chlorhexidine. Size: 8.5 Fr Catheter type: introducer During the procedure, the following specific steps were taken: target vein identified, needle advanced into vein and blood aspirated and guidewire advanced into vein.The procedure was performed using ultrasound guidance . Sterile gel and probe cover used in ultrasound-guided central venous catheter insertion. Intravenous verification was obtained by ultrasound. Post insertion care included: all ports aspirated, all ports flushed easily, guidewire removed intact, Biopatch applied, line sutured in place and dressing applied. During the procedure the patient experienced: patient tolerated procedure well with no complications. Staffing Performed: [facility] and anesthesiologist Anesthesiologist: Elías Diaz DO Associated Order(s): Arterial Line Arterial Line: Date/Time: 01/29/2025 12:05 PM An arterial line was placed in the Procedural for the following indication(s): continuous blood pressure monitoring and blood sampling needed. The procedure was performed using ultrasound guidance . A 20 gauge (size), 1 and 3/4 inch (length), Arrow (type) catheter was placed, into the Left radial artery, secured by Tegaderm and tape. Events: patient tolerated procedure well with no complications. Staffing Performed: [facility] Anesthesiologist: Elías Diaz DO Resident/CVT RN: HARMONY Naik CRNA Associated Order(s): Airway Airway Date/Time: 01/29/2025 12:08 PM Reason: scheduled Airway not difficult General Information and Staff Patient location during procedure: Procedural Anesthesiologist: Elías Diaz DO Resident/CVT RN: HARMONY Naik CRNA Performed: [facility] Patient Condition Indications for airway management: anesthesia and airway protection Patient position: sniffing MILS maintained throughout Sedation level: Asleep Final Airway Details Preoxygenated: yes Final airway type: endotracheal airway Successful airway: ETT Cuffed: yes Successful intubation technique: direct laryngoscopy Adjuncts used in placement: intubating stylet Endotracheal tube insertion site: oral Blade: Barbra Blade size: #4 ETT size (mm): 8.0 Cormack-Lehane Classification: grade IIa - partial view of glottis Placement verified by: chest auscultation, capnometry and palpation of cuff Measured from: gums ETT to gums (cm): 22 Number of attempts at approach: 1 Number of other approaches attempted: 0 Patient: Ryan Macedo Procedure Information Date/Time: 01/27/25 0730 Procedures: CORONARY ARTERY BYPASS GRAFT (Chest) ECHOCARDIOGRAM, TRANSESOPHAGEAL Location: [facility] OR Operating Room Surgeons: Ronnie Herrera MD Relevant Problems Cardio (+) CAD in [place] artery Past Medical History: Past Medical History: No date: Diabetes mellitus (HCC) No date: GERD (gastroesophageal reflux disease) No date: Gout No date: History of kidney stones No date: Hyperlipidemia No date: Hypertension No date: Lumbar stenosis No date: Osteoarthritis No date: PONV (postoperative nausea and vomiting) Past Surgical History: Past Surgical History: No date: BACK SURGERY Comment: lumbar No date: KNEE SURGERY; Right Comment: arthroscopy for meniscus tear No date: ROTATOR CUFF REPAIR; Left Social History: TOBACCO: reports that he has never smoked. He has never used smokeless tobacco. ETOH: reports no history of alcohol use. Social History Substance and Sexual Activity Drug Use Never Family History: Family History[1] Screening: unknown Clinical information reviewed: Physical Exam Airway Mallampati: III TM distance: >3 FB Neck ROM: full Mouth Open: limitedendotracheal tube not in place Cardiovascular Dental dentition normal Pulmonary Abdominal Anesthesia Plan Any family history or previous problems with anesthesia yes (PONV) We discussed risks, benefits, alternatives and likelihood of success with the Patient. ASA 4 general Any family history or previous problems with anesthesia yes (PONV) The patient is not a current smoker. patient is NPO appropriate Anesthesia Lucas Considerations Ozempic last taken 01/15 EF 55% Blood Glucose No results found for: HGBA1C Metformin, ozempic Insulin Sliding Scale: low ERAS Type 01/28/25 Chart reviewed. DOS orders for anesthesia placed according to ERAS protocol. Cabg, no eras HARMONY Orosco CNP KIRBY Screening Labs: No results found for: WBC, HGB, HCT, MCV, PLT No results found for: SODIUM, NA, POTASSIUM, K, CHLORIDE, CL, CO2, BUN, CREATININE, GLUCOSE, CALCIUM, PROT, BILIRUBINFL, ALKPHOS, AST, ALT, EGFR, GLOB No echocardiogram results found for the past 14 days No results found for this or any previous visit. Equipment Requests: Additional Equipment Requests Heart & Lung Cart Blood Equipment: warmer Vascular Equipment: central line kit, arterial line kit, triple transducer, Heart Setup and 2nd IV Additional Equipment: ultrasound, Transport Vent and Pacer Box Care Team [1] Family History Problem Relation Name Age of Onset Diabetes Mother Coronary artery disease Father Melanoma Father Heart Surgery Father Coronary artery disease Brother documented in this encounter [facility] 01-29-2025 Procedure anesthe nakia Narrative Procedure Name Responsible Anesthesiologist Anesthesia Start Time Anesthesia Stop Time CORONARY ARTERY BYPASS GRAFT (Chest) Elías Diaz DO 01/29/25 1155 01/29/25 1629 Events Date Time Event Comment 01/29/2025 1150 1155 In Room 1155 An Start 1155 An Start Data 1205 An Induction The patient was reevaluated immediately before moderate or deep sedation use and before anesthesia induction. 1205 A-Line Inserted 1208 An Intubation 1208 Anesthesia Ready 1233 Perfusion Start 1255 Proc Start 1339 ACT Adequate for CPB 1342 Shola Phenylephrine P RN (30mg/250ml) throughout pump run. 1349 Art Line Pulse/Test 1352 An CV Bypass init 1355 An Clamp On 1437 An Clamp Off 1439 Shola Defib @10j succ sess 1508 An CV Bypass Ended 1534 Shola 1558 Perfusion Stop 1600 Proc Fin 1610 an stop data 1610 Out of Room 1629 An Stop 1629 AN ANA M Placed By: BEAU Larkin Name Total perfusion prime builder 500 mL albumin human 25% 300 mL midazolam (Versed) injection 2 mg/2 mL 2 mg lidocaine PF (Xylocaine-MPF) local injec tion 2 % 60 mg rocuronium (ZeMuron) 50 mg/5 mL injectio n 100 mg esmolol (Brevibloc) 30 mg phenylephrine syringe 1 mg/ 10 mL syring e (IV Push for HYPOTENSION) 100 mcg ceFAZolin (Ancef) vial 1 g 2 g insulin regular infusion 100 units in 10 0 mL NS (premix) 10.71 Units fentaNYL (Sublimaze) injection 20mL 350 mcg etomidate (Amidate) injection 18 mg aminocaproic acid (Amicar) 10g in sodium chloride 0.9% 290 mL infusion 5 g ePHEDrine injection 10 mg glycopyrrolate (Robinul) injection 0.2 m g heparin injection 1,000 units/mL 36,000 Units lidocaine (Xylocaine) 2% injection 100 m g calcium chloride 10% IV syringe 1,000 mg protamine injection 510 mg propofol (Diprivan) infusion 10 mg/mL 10 0 mL vial 296.04 mg sodium chloride 0.9 % infusion 1,000 mL * Agents Name O2 Air Sevoflurane Isoflurane * Blood No blood administrations on file. Lines, Drains, and Airways Type Details Placement Removal Peripheral IV Placement Date: 01/29/25; Placement Time: 957; Catheter Size: 18 G; Orientation: Right; Location: Hand; Insertion Attempts: 1 01/29/2558 by Cecy Mercedes RN Arterial Line Placement Date: 01/29/25; Placement Time: 1205 (created via procedure documentation); Size: 20 G; Orientation: Left; Location: Radial; Securement: Taped 01/29/25 1205 by HARMONY Naik CRNA Urethral Catheter Placement Date: 01/29/25; Placement Time: 1215; Inserted by: NICOLE TAVAREZ; Type: Temperature probe; Balloon Size: 10 mL; Urine Returned: Yes 01/29/25 1215 by Sia Garcia RN Introducer Placement Date: 01/29/25; Placement Time: 1225 (created via procedure documentation); Location: Internal jugular; Orientation: Right 01/29/25 1225 by HARMONY Naik CRNA CVC Triple Lumen Placement Date: 01/29/25; Placement Time: 1300; Orientation: Right; Location: Internal jugular; Securement: Sutured; Placement Verification: X-ray 01/29/25 1300 by Julio Chowdhury RN Wound/Incision 01/29/25; 1302; Sternum; STERNOTOMY 01/29/25 1302 by Sia Garcia RN Wound/Incision 01/29/25; 1303; Incision; Calf; Anterior, Left; LEFT SAPHENOUS EVH 01/29/25 1303 by iSa Garcia RN Chest Tube Placement Date: 01/29/25; Placement Time: 1600; Tube Number: 2; Location: Mediastinal; Drainage System: Suction 01/29/25 1600 by Julio Chowdhury RN Y Chest Tube 1 and 2 01/29/25; 1600; Pleural; Pleural 01/29/25 1600 by Radha Landa RN Y Chest Tube 1, 2 and 3 01/29/25; 1; Right; 24 Fr.; 2; Right; 24 Fr.; 3; Left; 24 Fr. 01/29/25 0000 by Cami Bowden RN 01/29/25 2209 by Radha Landa RN Hi-Lo Evac ETT 01/29/25; 1624; 8 mm ; 24; 01/29/25; 1800 01/29/25 1624 by Little Ortega, [facility] 01/29/25 1800 by Radha Landa RN [id number] Anesthesiology procedure note* Anesthesia Procedure Notes - Hay Mahajan APRN - CVT RN - 01/29/2025 1:11 PM EDTAssociated Order(s): Central Venous Line Central Venous Line: Date/Time: 01/29/2025 12:25 PM A central venous line was placed in the Procedural for the following indication(s): Sterility preparation included the following: provider hand hygiene performed prior to central venous catheter insertion, all 5 sterile barriers used (gloves, gown, cap, mask, large sterile drape) during central venous catheter insertion, antiseptic used during central venous catheter insertion andskin prep agent completely dried prior to procedure. Medical reason for not performing maximal sterile barrier technique: no The patient was placed in Trendelenburg position. Right The site was prepped with Chlorhexidine. Size: 8.5 Fr Catheter type: introducer During the procedure, the following specific steps were taken: target vein identified, needle advanced into vein and blood aspirated and guidewire advanced into vein.The procedure was performed usingultrasound guidance . Sterile gel and probe cover used in ultrasound-guided central venous catheter insertion. Intravenous verification was obtained by ultrasound. Post insertion care included: all ports aspirated, all ports flushed easily, guidewire removed intact, Biopatch applied, line sutured in place and dressing applied. During the procedure the patient experienced: patient tolerated procedure well with no complications. Staffing Performed: [facility] and anesthesiologist Anesthesiologist: Elías Diaz, DO [facility] Phone: [phone] 293-431209-24-2025 NoteCentral Venous Line: Date/Time: 01/29/2025 12:25 PM A central venous line was placed in the Procedural for the following indication(s): Sterility preparation included the following: provider hand hygiene performed prior to central venous catheter insertion, all 5 sterile barriers used (gloves, gown, cap, mask, large sterile drape) during central venous catheter insertion, antiseptic used during central venous catheter insertion and skin prep agent completely dried prior to procedure. Medical reason for not performing maximal sterile barrier technique: no The patient was placed in Trendelenburg position. Right The site was prepped with Chlorhexidine. Size: 8.5 Fr Catheter type: introducer During the procedure, the following specific steps were taken: target vein identified, needle advanced into vein and blood aspirated and guidewire advanced into vein.The procedure was performed using ultrasound guidance . Sterile gel and probe cover used in ultrasound-guided central venous catheter insertion. Intravenous verification was obtained by ultrasound. Post insertion care included: all ports aspirated, all ports flushed easily, guidewire removed intact, Biopatch applied, line sutured in place and dressing applied. During the procedure the patient experienced: patient tolerated procedure well with no complications. Staffing Performed: [facility] and anesthesiologist Anesthesiologist: [facility] Anesthesiology procedure note* Anesthesia Procedure Notes - HARMONY Naik CRNA - 01/29/2025 1:10 PM EDTAssociated Order(s): Arterial Line Arterial Line: Date/Time: 01/29/2025 12:05 PM An arterial line was placed in the Procedural for the following indication(s): continuous blood pressure monitoring and blood sampling needed. The procedure was performed using ultrasound guidance . A 20 gauge (size), 1 and 3/4 inch (length), Arrow (type) catheter was placed, into the Left radial artery, secured by Tegaderm and tape. Events: patient tolerated procedure well with no complications. Staffing Performed: SHANDA Anesthesiologist: Elías Diaz DO Resident/CVT RN: HARMONY Naik CRNA [facility]09-24-2025 NoteArterial Line: Date/Time: 01/29/2025 12:05 PM An arterial line was placed in the Procedural for the following indication(s): continuous blood pressure monitoring and blood sampling needed. The procedure was performed using ultrasound guidance . A 20 gauge (size), 1 and 3/4 inch (length), Arrow (type) catheter was placed, into the Left radial artery, secured by Tegaderm and tape. Events: patient tolerated procedure well with no complications. Staffing Performed: SHANDA Anesthesiologist: Elías Diaz DO Resident/CVT RN: HARMONY [facility]ik [facility] Anesthesiology procedure note* Anesthesia Procedure Notes - HARMONY Naik CRNA - 01/29/2025 1:09 PM EDTAssociated Order(s): Airway Airway Date/Time: 01/29/2025 12:08 PM Reason: scheduled Airway not difficult General Information and Staff Patient location during procedure: Procedural Anesthesiologist: Elías Diaz DO Resident/CVT RN: HARMONY Naik CRNA Performed: [facility] Patient Condition Indications for airway management: anesthesia and airway protection Patient position: sniffing MILS maintained throughout Sedation level: Asleep Final Airway Details Preoxygenated: yes Final airway type: endotracheal airway Successful airway: ETT Cuffed: yes Successful intubation technique: direct laryngoscopy Adjuncts used in placement: intubating stylet Endotracheal tube insertion site: oral Blade: Barbra Blade size: #4 ETT size (mm): 8.0 Cormack-Lehane Classification: grade IIa - partial view of glottis Placement verified by: chest auscultation, capnometry and palpation of cuff Measured from: gums ETT to gums (cm): 22 Number of attempts at approach: 1 Number of other approaches attempted: 0 [place] [id number] NoteAirway Date/Time: 01/29/2025 12:08 PM Reason: scheduled Airway not difficult General Information and Staff Patient location during procedure: Procedural Anesthesiologist: Elías Diaz DO Resident/CVT RN: HARMONY Naik CRNA Performed: SRNA Patient Condition Indications for airway management: anesthesia and airway protection Patient position: sniffing MILS maintained throughout Sedation level: Asleep Final Airway Details Preoxygenated: yes Final airway type: endotracheal airway Successful airway: ETT Cuffed: yes Successful intubation technique: direct laryngoscopy Adjuncts used in placement: intubating stylet Endotracheal tube insertion site: oral Blade: Barbra Blade size: #4 ETT size (mm): 8.0 Cormack-Lehane Classification: grade IIa - partial view of glottis Placement verified by: chest auscultation, capnometry and palpation of cuff Measured from: gums ETT to gums (cm): 22 Number of attempts at approach: 1 Number of other approaches attempted: 0[facility] NoteH&P reviewed. The patient was examined and there are no changes to the H&P.[facility]09-24-2025 History and physical note* Ronnie Herrera MD - 01/29/2025 11:07 AM EDT H&P reviewed. The patient was examined and there are no changes to the H&P. Source Note - Ronnie Herrera MD - 01/14/2025 8:00 AM EDT Images from the original note were not included. [facility] CARDIOVASCULAR & THORACIC SURGERY [address] [facility] [address] Dept: [phone] Dept Loc: [phone] Visit type: New Reason for Visit: Multivessel coronary artery disease-evaluate for CABG Assessment and plan 69-year-old patient with diabetes mellitus who has had exertional dyspnea underwent a stress test which was abnormal. A subsequent cardiac catheterization revealed multivessel coronary artery diseasewith a chronically occluded right coronary artery (with collateral reconstitution via vhie-xl-ffkocovxoufdszyu), and 90% stenosis at the ostium of [...] to the LAD, a vein graft to thedistal right coronary artery system, and a vein graft to the obtuse marginal coronary artery with aproximal stenosis. He will require preprocedure evaluation with carotid ultrasound, surface echo, and a noncontrast CTscan of the chest. His lower extremities appear [...] days)* 63.7% History of Present Illness Ryan Macedo is a 69 y.o. male referred by Dr. Williamson for CABG. Per note, pt saw PCP with complaints of shortness of breath on exertion. A stress test was ordered which was abnormal with EKG changes suggestive of ischemia at a moderate workload. Pt was then referred to Cardiology who ordered a heart catheterization which pt underwent on 12/25/24 and demonstratedtriple- vessel disease with severe disease involving the circumflex [...] Position: Sitting, BP Cuff Size: Large adult) Pulse67 Ht 1.93 m (6' 4) Wt 91.6 [...] Test 12/05/24 Patient Care Team: PCP: Miriam Gomez, DO Cardiology: Stone Williamson MD ?? 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 [...] Not comorbidities but impact med management. ?? INTERMEDIATE/CC Capture Class Condition ICD-10 Evidence Missing Specificity INTERMEDIATE None currently -- -- No acute renal [...] the proposed treatment or procedure have been discussed.The risks and benefits of the proposed treatment [...] This note may have been dictated using [employer] Practice Edition 2.6 and/or Re-vinyl Voice Recognition Feature. The document was proofread, however unrecognized voice recognition abstract clerk errors may be present. documented in this [facility]09-19-2025 Anesthesiology Preoperative evaluation and management note* Anesthesia Preprocedure Evaluation - Elías Angie DO Joe - 01/24/2025 6:42 AM EDT Patient: Ryan Macedo Procedure Information Date/Time: 01/27/25729 Procedures: CORONARY ARTERY BYPASS GRAFT (Chest) ECHOCARDIOGRAM, TRANSESOPHAGEAL Location: [facility] Operating Room Surgeons: Ronnie Herrera MD Relevant Problems Cardio (+) CAD in [place] artery Past Medical History: Past Medical History: No date: Diabetes mellitus (HCC) No date: GERD (gastroesophageal reflux disease) No date: Gout No date: History of kidney stones No date: Hyperlipidemia No date: Hypertension No date: Lumbar stenosis No date: Osteoarthritis No date: PONV (postoperative nausea and vomiting) Past Surgical History: Past Surgical History: No date: BACK SURGERY Comment: lumbar No date: KNEE SURGERY; Right Comment: arthroscopy for meniscus tear No date: ROTATOR CUFF REPAIR; Left Social History: TOBACCO: reports that he has never smoked. He has never used smokeless tobacco. ETOH: reports no history of alcohol use. Social History Substance and Sexual Activity Drug Use Never Family History: Family History[1] Screening: unknown Clinical information reviewed: Physical Exam Airway Mallampati: III TM distance: >3 FB Neck ROM: full Mouth Open: limitedendotracheal tube not in place Cardiovascular Dental dentition normal Pulmonary Abdominal Anesthesia Plan Any family history or previous problems with anesthesia yes (PONV) We discussed risks, benefits, alternatives and likelihood of success with the Patient. ASA 4 general Any family history or previous problems with anesthesia yes (PONV) The patient is not a current smoker. patient is NPO appropriate Anesthesia Lucas Considerations Ozempic last taken 01/15 EF 55% Blood Glucose No results found for: HGBA1C Metformin, ozempic Insulin Sliding Scale: low ERAS Type 01/28/25 Chart reviewed. DOS orders for anesthesia placed according to ERAS protocol. Cabg, no eras Sarah Renae, OUTDOOR FITNESS TRAINER - ELECTRICAL ENGINEERING PROFESSOR KIRBY Screening Labs: No results found for: WBC, HGB, HCT, MCV, PLT No results found for: SODIUM, NA, POTASSIUM, K, CHLORIDE, CL, CO2, BUN, CREATININE, GLUCOSE, CALCIUM, PROT, BILIRUBINFL, ALKPHOS, AST, ALT, EGFR, GLOB No echocardiogram results found for the past 14 days No results found for this or any previous visit. Equipment Requests: Additional Equipment Requests Heart & Lung Cart Blood Equipment: warmer Vascular Equipment: central line kit, arterial line kit, triple transducer, Heart Setup and 2nd IV Additional Equipment: ultrasound, Transport Vent and Pacer Box Care Team [1] Family History Problem Relation Name Age of Onset Diabetes Mother Coronary artery disease Father Melanoma Father Heart Surgery Father Coronary artery disease Brother [employer] Work Phone: 1(846) 934-760709-19-2025 NotePatient: Ryan Asiffeliciano Procedure Information Date/Time: 01/27/25 0730 Procedures: CORONARY ARTERY BYPASS GRAFT (Chest) ECHOCARDIOGRAM, TRANSESOPHAGEAL Location: [place] [address] [facility] Operating Room Surgeons: Ronnie Herrera MD Relevant Problems Cardio (+) CAD in [place] artery Past Medical History: Past Medical History: No date: Diabetes mellitus (HCC) No date: GERD (gastroesophageal reflux disease) No date: Gout No date: History of kidney stones No date: Hyperlipidemia No date: Hypertension No date: Lumbar stenosis No date: Osteoarthritis No date: PONV (postoperative nausea and vomiting) Past Surgical History: Past Surgical History: No date: BACK SURGERY Comment: lumbar No date: KNEE SURGERY; Right Comment: arthroscopy for meniscus tear No date: ROTATOR CUFF REPAIR; Left Social History: TOBACCO: reports that he has never smoked. He has never used smokeless tobacco. ETOH: reports no history of alcohol use. Social History Substance and Sexual Activity Drug Use Never Family History: Family History[1] Screening: unknown Clinical information reviewed: Physical Exam Airway Mallampati: III TM distance: >3 FB Neck ROM: full Mouth Open: limitedendotracheal tube not in place Cardiovascular Dental dentition normal Pulmonary Abdominal Anesthesia Plan Any family history or previous problems with anesthesia yes (PONV) We discussed risks, benefits, alternatives and likelihood of success with the Patient. ASA 4 general Any family history or previous problems with anesthesia yes (PONV) The patient is not a current smoker. patient is NPO appropriate Anesthesia Lucas Considerations Ozempic last taken 01/15 EF 55% Blood Glucose No results found for: HGBA1C Metformin, ozempic Insulin Sliding Scale: low ERAS Type 01/28/25 Chart reviewed. DOS orders for anesthesia placed according to ERAS protocol. Cabg, no eras Sarah Renae, OUTDOOR FITNESS TRAINER - ELECTRICAL ENGINEERING PROFESSOR KIRBY Screening Labs: No results found for: WBC, HGB, HCT, MCV, PLT No results found for: SODIUM, NA, POTASSIUM, K, CHLORIDE, CL, CO2, BUN, CREATININE, GLUCOSE, CALCIUM, PROT, BILIRUBINFL, ALKPHOS, AST, ALT, EGFR, GLOB No echocardiogram results found for the past 14 days No results found for this or any previous visit. Equipment Requests: Additional Equipment Requests Heart & Lung Cart Blood Equipment: warmer Vascular Equipment: central line kit, arterial line kit, triple transducer, Heart Setup and 2nd IV Additional Equipment: ultrasound, Transport Vent and Pacer Box Care Team [1] Family History Problem Relation Name Age of Onset Diabetes Mother Coronary artery disease Father Melanoma Father Heart Surgery Father Coronary artery disease [facility]09-11-2025 Telephone encounter Note* Telephone Encounter - Reina Lemus RN - 01/16/2025 1:46 PM EDT Patient had the TTE done at [facility] today, having carotid US done 01/23 at [facility]. Exam requests canceled at [facility], TE sent 01/16 LAR [id number] Miscellaneous Notes* Telephone Encounter - Reina Lemus RN - 01/16/2025 1:46 PM EDT Patient had the TTE done at [facility] today, having carotid US done 01/23 at [facility]. Exam requests canceled at [facility], TE sent 01/16 LAR documented in this [facility]09-09-2025 Telephone encounter Note* Telephone Encounter - HARMONY Paulino CNP - 01/14/2025 11:09 AM EDT Surg proc orders placed HARMONY Paulino CNP 01/14/25 [id number] Miscellaneous Notes* Telephone Encounter - HARMONY Paulino CNP - 01/14/2025 11:09 AM EDT Surg proc orders placed HARMONY Paulino CNP 01/14/25 * Telephone Encounter - Evelyn Castro MA - 01/14/2025 9:14 AM EDT Prep for Procedure Order Request: 01/14/25 Surgeon: Herrera Surgery/Procedure: CABG,ANA M Diagnosis: CAD Plan Admit: yes PAT Appointment: TBS Date if yes: Phone call Date of Surgery/Procedure: 01/27/25 7:30 am Medications: [] Hold as directed by CTS: [x] Per PAT protocol Medication needed prescribed: [] None [x] Nasal ointment and mouth rinse [] Other: documented in this [facility]09-09-2025 NotePrep for Procedure Order Request: 01/14/25 Surgeon: Herrera Surgery/Procedure: CABG,ANA M Diagnosis: CAD Plan Admit: yes PAT Appointment: TBS Date if yes: Phone call Date of Surgery/Procedure: 01/27/25 7:30 am Medications: [] Hold as directed by CTS: [x] Per PAT protocol Medication needed prescribed: [] None [x] Nasal ointment and mouth rinse [] Other: [facility]09-09-2025 Telephone encounter Note* Telephone Encounter - Evelyn Castro MA - 01/14/2025 9:14 AM EDT Prep for Procedure Order Request: 01/14/25 Surgeon: Sharon Surgery/Procedure: CABG,ANA M Diagnosis: CAD Plan Admit: yes PAT Appointment: TBS Date if yes: Phone call Date of Surgery/Procedure: 01/27/25 7:30 am Medications: [] Hold as directed by CTS: [x] Per PAT protocol Medication needed prescribed: [] None [x] Nasal ointment and mouth rinse [] Other[id number] NoteOrders Placed This Encounter Procedures Transthoracic echocardiogram (TTE) complete with contrast, bubble, strain, and 3D PRN Standing Status: Future Expected Date: 01/14/2025 Expiration Date: 01/14/2027 Contrast Enhancement (Bubble Study, Definity, Optison) may be used if criteria listed in established evidence-based protocol has been identified.: Contrast and bubble study per evidence based protocol Vascular US carotid artery duplex bilateral Standing Status: Future Expected Date: 01/14/2025 Expiration Date: 01/14/2027[facility]09-09-[facility] History of Present illness Narrative* Ronnie Herrera MD - 01/14/2025 8:00 AM EDT Images from the original note were not included. [facility] CARDIOVASCULAR & THORACIC SURGERY [address] [facility] [address] Dept: [phone] Dept Loc: [phone] Visit type: New Reason for Visit: Multivessel coronary artery disease-evaluate for CABG Assessment and plan 69-year-old patient with diabetes mellitus who has had exertional dyspnea underwent a stress test which was abnormal. A subsequent cardiac catheterization revealed multivessel coronary artery diseasewith a chronically occluded right coronary artery (with collateral reconstitution via cicc-fk-ouizfnoatzbxqkvd), and 90% stenosis at the ostium of [...] to the LAD, a vein graft to thedistal right coronary artery system, and a vein graft to the obtuse marginal coronary artery with aproximal stenosis. He will require preprocedure evaluation with carotid ultrasound, surface echo, and a noncontrast CTscan of the chest. His lower extremities appear [...] days)* 63.7% History of Present Illness Ryan Macedo is a 69 y.o. male referred by Dr. Williamson for CABG. Per note, pt saw PCP with complaints of shortness of breath on exertion. A stress test was ordered which was abnormal with EKG changes suggestive of ischemia at a moderate workload. Pt was then referred to Cardiology who ordered a heart catheterization which pt underwent on 12/25/24 and demonstratedtriple- vessel disease with severe disease involving the circumflex [...] , Rfl: cholecalciferol (Vitamin D-3) 50 MCG (2000 UT) capsule, Take 50 mcg by mouth [...] Position: Sitting, BP Cuff Size: Large adult) Pulse67 Ht 1.93 m (6' 4) Wt 91.6 [...] Test 12/05/24 Patient Care Team: PCP: Miriam Gomez, Cardiology: Stone Williamson MD ?? 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 [...] Not comorbidities but impact med management. ?? INTERMEDIATE/CC Capture Class Condition ICD-10 Evidence Missing Specificity INTERMEDIATE None currently -- -- No acute renal [...] the proposed treatment or procedure have been discussed.The risks and benefits of the proposed treatment [...] This note may have been dictated using Live Mobile Medical Practice Edition 2.6 and/or Re-vinyl Voice Recognition Feature. The document was proofread, however unrecognized voice recognition abstract clerk errors may be present. documented in this [facility]09-09-2025 [facility] CARDIOVASCULAR & THORACIC SURGERY [address] [facility] [address] Dept: [phone] Dept Loc: [phone] Visit type: New Reason for Visit: Multivessel coronary artery disease-evaluate for CABG Assessment and plan 69-year-old patient with diabetes mellitus who has had exertional dyspnea underwent a stress test which was abnormal. A subsequent cardiac catheterization revealed multivessel coronary artery disease with a chronically occluded right coronary artery (with collateral reconstitution via ypqa-ok-xpixv collaterals), and 90% stenosis at the ostium [...] days)* 63.7% History of Present Illness Ryan Macedo is a 69 y.o. male referred by [...] distress. Appearance: Normal appearanc (more content not included)...[facility]08-07-2025 Radiology Diagnostic study note [facility] Imaging Services [address] [place], [place] [address] Chest PA and Lateral MR#: [id number] Acct: [id number] Name: RYAN MACEDO Rep #: [id number] : 1955 M 69 From: Nahun Palafox MD PCP: Dr. Miriam Gomez DO Status: REG CLI Study:Chest PA and Lateral Date of Exam: 12/11/24 Exam# [id number] Ordering Dr: Radha Santiago PA ADDENDUM by Dr. Manuel Masters MD on 12/12/24 at 0406 . Reading Location: [place] [address] 12/12/24 0406 Date cc: Dr. Miriam Gomez DO; GWYN Olivares ~* Signed PROCEDURE: CHEST [...] No acute process is seen. Reading Location: [facility] CC: Dr. Miriam Gomez DO; GWYN Olivares ~ Exterminator Termite: Signed [facility]08-06-2025 Evaluation note* Diagnosis Onset Date Resolution Status Admit Date Abnormal stress test acute 2024 12:51pm LOVING (dyspnea on exertion) acute December 11, 2024 12:51pm Hyperlipidemia acute December 12:51pm Left carotid bruit acute December 11, 2024 12:51pm Hypertension chronic December 11, 2024 12:51pm [facility] Work Phone: evaluation noteNo assessment information available [facility] Work Phone: evaluation note* Diagnosis Onset Date Resolution Status Admit Date Abnormal stress test acute 2024 12:51pm LOVING (dyspnea on exertion) acute December 11, 2024 12:51pm Hyperlipidemia acute December 12:51pm Left carotid bruit acute December 11, 2024 12:51pm Hypertension chronic December 11, 2024 12:51pm [facility] Work Phone: evaluation note* Diagnosis Coronary artery disease due to calcified coronary lesion- Primary Type 2 diabetes mellitus with other circulatory complication, with long-term current use of insulin (HCC) Atherosclerotic heart disease of [place] coronary artery with other forms of angina pectoris (HCC) documented in this encounter [facility] note* Diagnosis CAD in [place] artery- Primary Coronary artery disease due to calcified coronary lesion Atherosclerotic heart disease of [place] coronary artery with other forms of angina pectoris (HCC) documented in this encounter [facility] note* Diagnosis CAD in [place] artery- Primary Coronary artery disease due to calcified coronary lesion CAD in [place] artery documented in this encounter [facility] Discharge instructionsAmbulatory Orders* Cardiovascular/Thoracic Surgery Location: None Selected [facility] Work Phone: reason for referral (narrative)No reason for referral information availableCentinela [facility] Work Phone: reason for visit Narrative* Auth/Cert (Routine) Specialty Diagnoses / Procedures Referred By Contac t Referred To Contact Diagnoses Atherosclerotic heart disease of [place] coronary artery with other forms of angina pectoris (HCC) Procedures NV CABG W/ARTERIAL GRAFT THREE ARTERIAL GRAFTS NV ECHO TRANSESOPHAG R-T 2D W/PRB IMG ACQUISJ I&R CORONARY ARTERY BYPASS GRAFT ECHOCARDIOGRAM, TRANSESOPHAGEAL Herrera, Ronnie Adams MD [address] [address] Phone: tel: fax: Referral ID Status Reason Start Date Expiration Date Visits Re quested Visits Authorized [id number]/14/2025 1 1 [facility] Narrative* Auth/Cert (Routine) Specialty Diagnoses / Procedures Referred By Luis t Referred To Contact Diagnoses Atherosclerotic heart disease of [place] coronary artery with other forms of angina pectoris Procedures NV CABG W/ARTERIAL GRAFT THREE ARTERIAL GRAFTS NV ECHO TRANSESOPHAG R-T 2D W/PRB IMG ACQUISJ I&R CORONARY ARTERY BYPASS GRAFT ECHOCARDIOGRAM, TRANSESOPHAGEAL Herrera, Ronnie Adams MD [address] [place] [address] Phone: tel: fax: Referral ID Status Reason Start Date Expiration Date Visits Re quested Visits Authorized [id number]/14/2025 1 1 [facility] Soevolved Advance Directives Advance Directive Response Recorded Date/ Time Living Will Yes November 15, 2020 6:14am Power of Special Forces Warrant Officer Yes November 15 6:14am Advance Directive Response Recorded Date/ Time Advance Directives on File Yes Augus 2024 7:14am Living Will Yes December 25 7:14am Do you have a Healthcare Pow er of Special Forces Warrant Officer? 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 STRESS (JASON) December 11, 2024 12:51pm Reason for Visit Admit Date Abnormal stress test December 11, 2024 12 :51pm LOVING (dyspnea on exertion) December 11 12:51pm Hyperlipidemia December 11, 2024 12: 51pm Left carotid bruit December 11, 2024 12: 51pm Hypertension December 11, 2024 12: 51pm Chief Complaint Admit Date DYSPNEA December 05, 2024 9:52 am DYSPNEA December 05, 2024 4:35 pm POS. STRESS (JASON) December 11, 2024 12:51pm EORDERS December 11, 2024 2:0 4pm Chief Complaint Admit Date DYSPNEA December 05, 2024 9:52 am DYSPNEA December 05, 2024 4:35 pm POS. STRESS (JASON) December 11, 2024 12:51pm EORDERS December 11, 2024 2:0 4pm ABN STRESS December 25, 2024 6: 55am Referral Order December 25, 2024 9: 46am Chief Complaint Admit Date DYSPNEA December 05, 2024 9:52 am DYSPNEA December 05, 2024 4:35 pm POS. STRESS (JASON) December 11, 2024 12:51pm EORDERS December 11, 2024 2:0 4pm ABN STRESS December 25, 2024 6: 55am Referral Order December 25, 2024 9: 46am I25.110 Atherosclerotic heart disease of [place] co January 16, 2025 12:46pm Chief Complaint Admit Date DYSPNEA December 05, 2024 9:52 am DYSPNEA December 05, 2024 4:35 pm POS. STRESS (JASON) December 11, 2024 12:51pm EORDERS December 11, 2024 2:0 4pm ABN STRESS December 25, 2024 6: 55am Referral Order December 25, 2024 9: 46am I25.110 Atherosclerotic heart disease of [place] January 16, 2025 12:46pm BRUIT January 23, 2025 7:25am BRUIT January 23, 2025 8:11am Family History Relationship Condition Age at Onset Recorded Date/T [...] Active Member Role Status Dates Dr. Miriam Gomez DO Family Provider Active Dr. Miriam Gomez DO Primary Care Provider Active Team Status: Inactive Member Role Status Dates Dr. Miriam Gomez DO Primary Care Provider, Attendin g Provider Active Team Status: Active Member Role/Relationship Status Dates Dr. Miriam Gomez DO Primary Care Provider Active Team Status: Active Member Role/Relationship Status Dates Dr. Miriam Gomez DO Primary Care Provider Active Start: December 05, 2024 Dr. Miriam Gomez DO Attending Provider Active Start: December 05, 2024 Dr. Miriam Gomez DO Referring Provider Active Start: December 05, 2024 Team Status: Active Member Role/Relationship Status Dates Dr. Miriam Gomez DO Primary Care Provider Active Start: December 05, 2024 Dr. Miriam Gomez DO Referring Provider Active Start: December 05, 2024 Dr. Miriam Gomez DO Other Provider Active Sta rt: December 05, 2024 Dr. Stone Williamson MD Attending Provider Active S tart: December 05, 2024 Team Status: Inactive Member Role/Relationship Status Dates Dr. Miriam Gomez DO Primary Care Provider Active Start: December 11, 2024 End: December 11, 2024 Dr. Miriam Gomez DO Referring Provider Active Start: December 11, 2024 End: December 11, 2024 Radha Adame PA, PA Attending Provider Active Start: December 11, 2024 End: December 11, 2024 Team Status: Inactive Member Role/Relationship Status Dates Dr. Miriam Gomez DO Primary Care Provider Active Start: December 05, 2024 End: December 05, 2024 Dr. Miriam Gomez DO Attending Provider Active Start: December 05, 2024 End: December 05, 2024 Dr. Miriam Gomez DO Referring Provider Active Start: December 05, 2024 End: December 05, 2024 Team Status: Active Member Role/Relationship Status Dates Dr. Miriam Gomez DO Primary Care Provider Active Start: December 11, 2024 Radha Adame PA, PA Attending Provider Active Start: December 11, 2024 Radha Adame PA, PA Referring Provider Active Start: December 11, 2024 Team Status: Inactive Member Role/Relationship Status Dates Dr. Miriam Gomez DO Primary Care Provider Active Start: December 11, 2024 End: December 11, 2024 GWYN Preciado Attending Provider Active Start: December 11, 2024 End: December 11, 2024 Radha PASCAL PA Referring Provider Active Start: December 11, 2024 End: December 11, 2024 Team Status: Active Member Role/Relationship Status Dates Dr. Miriam Gomez DO Primary Care Provider Active Start: December 25, 2024 Dr. Stone Williamson MD Attending Provider Active S tart: December 25, 2024 Dr. Stone Williamson MD Referring Provider Active S tart: December 25, 2024 Team Status: Active Member Role/Relationship Status Dates Dr. Miriam Gomez DO Primary Care Provider Active Start: December 25, 2024 Dr. Stone Williamson MD Attending Provider Active S tart: December 25, 2024 Team Status: Inactive Member Role/Relationship Status Dates Dr. Miriam Gomez DO Primary Care Provider Active Start: December 25, 2024 End: December 25, 2024 Dr. Stone Williamson MD Attending Provider Active S tart: December 25, 2024 End: December 25, 2024 Dr. Stone Williamson MD Referring Provider Active S tart: December 25, 2024 End: December 25, 2024 Director Of Physiotherapy Services Relationship Specialty Start Date End Date Miriam Gomez [address] [place] [phone] PCP - General Family Medicine 01/14/25 Director Of Physiotherapy Services Relationship Specialty Start Date End Date Miriam Gomez [address] [place] [phone] PCP - General Family Medicine 01/14/25 Team Status: Inactive Member Role/Relationship Status Dates Dr. Miriam Gomez DO Primary Care Provider Active Start: January 16, 2025 End: January 16, 2025 Dr. Ronnie Herrera MD Attending Provider Active Start: January 16, 2025 End: January 16, 2025 Dr. Ronnie Herrera MD Referring Provider Active Start: January 16, 2025 End: January 16, 2025 Director Of Physiotherapy Services Relationship Specialty Start Date End Date Miriam Gomez [address] [place] [phone] PCP - General Family Medicine 01/14/25 Director Of Physiotherapy Services Relationship Specialty Start Date End Date Miriam Gomez [address] [place] [phone] PCP - General Family Medicine 01/14/25 Nelly Santiago RN Tool And Die Technician Manager 02/03/25 Team Status: Active Member Role/Relationship Status Dates Dr. Miriam Gomez DO Primary care physician Active Team Status: Inactive Member Role/Relationship Status Dates Dr. Miriam Gomez DO Primary care physician Active Start: December 05, 2024 End: December 05, 2024 Dr. Miriam Gomez DO Attending physician Active Start: December 05, 2024 End: December 05, 2024 Dr. Miriam Gomez DO Referring Provider Active Start: December 05, 2024 End: December 05, 2024 Team Status: Active Member Role/Relationship Status Dates Dr. Miriam Gomez DO Primary care physician Active Start: December 05, 2024 Dr. Miriam Gomez DO Referring Provider Active Start: December 05, 2024 Dr. Miriam Gomez DO Nurse Practitioner Active Start: December 05, 2024 Dr. Stone Williamson MD Attending physician Active Start: December 05, 2024 Team Status: Inactive Member Role/Relationship Status Dates Dr. Miriam Gomez DO Primary care physician Active Start: December 11, 2024 End: December 11, 2024 Dr. Miriam Gomez DO Referring Provider Active Start: December 11, 2024 End: December 11, 2024 Radha Adame PA, PA Attending physician Active Start: December 11, 2024 End: December 11, 2024 Team Status: Inactive Member Role/Relationship Status Dates Dr. Miriam Gomez DO Primary care physician Active Start: December 11, 2024 End: December 11, 2024 Radha PASCAL, PA Attending physician Active Start: December 11, 2024 End: December 11, 2024 Radha Adame PA, PA Referring Provider Active Start: December 11, 2024 End: December 11, 2024 Team Status: Inactive Member Role/Relationship Status Dates Dr. Miriam Gomez DO Primary care physician Active Start: December 25, 2024 End: December 25, 2024 Dr. Stone Williamson MD Attending physician Active Start: December 25, 2024 End: December 25, 2024 Dr. Stone Williamson MD Referring Provider Active S tart: December 25, 2024 End: December 25, 2024 Team Status: Active Member Role/Relationship Status Dates Dr. Miriam Gomez DO Primary care physician Active Start: December 25, 2024 Dr. Stone Williamson MD Attending physician Active Start: December 25, 2024 Team Status: Inactive Member Role/Relationship Status Dates Dr. Miriam Gomez DO Primary care physician Active Start: January 16, 2025 End: January 16, 2025 Dr. Ronnie Herrera MD Attending physician Active Start: January 16, 2025 End: January 16, 2025 Dr. Ronnie Herrera MD Referring Provider Active Start: January 16, 2025 End: January 16, 2025 Team Status: Active Member Role/Relationship Status Dates Dr. Miriam Gomez DO Primary care physician Active Start: January 16, 2025 Dr. Stone Williamson MD Attending physician Active Start: January 16, 2025 Team Status: Inactive Member Role/Relationship Status Dates Dr. Miriam Gomez DO Primary care physician Active Start: January 23, 2025 End: January 23, 2025 Dr. Ronnie Herrera MD Attending physician Active Start: January 23, 2025 End: January 23, 2025 Dr. Ronnie Herrera MD Referring Provider Active Start: January 23, 2025 End: January 23, 2025 Radha Adame PA, PA Nurse Practitioner Active Start: January 23, 2025 End: January 23, 2025 Team Status: Active Member Role/Relationship Status Dates Dr. Ke Zapata MD Attending physician Active Start: January 23, 2025 Dr. Ronnie Herrera MD Referring Provider Active Start: January 23, 2025 Reason for Visit (unrecogniz ed section and content) Reason Comments New Patient Specialty Diagnoses / Procedures Referred By Luis coy Referred To Contact Cardiothoracic Surgery Diagnoses Abnormal result of other cardiovascular function study Atherosclerotic heart disease of [place] coronary artery without angina pectoris Procedures [place] OFFICE/OUTPATIENT NEW HIGH MDM 60 MINUTES Teri, [place] [address] [place] [address] Phone: tel: fax:[phone] Ronnie Herrera MD [address] [place] [address] Phone: tel:[phone] fax:[phone] Referral ID Status Reason Start Date Expiration Date Visits Re quested Visits Authorized [id number] Closed 12/31/2024 12/31/2025 1 1 Reason Onset Date Comments Surgery Scheduling 01/14/2025 (unrecognized sect ion and content) No Status Records FoundNo Status Records Found INFORMATION SOURCE (unrecogn ized section and content) DATE CREATED AUTHOR 01/29/2025 [facility] DATE CREATED AUTHOR AUTHOR'S ORGANIZ ATION 02/07/2025 [facility] Scheduled Active and Recently Administ ered Medications (unrecognized section and content) Medication Order 02/02/2025 02/03/2025 02/04/2025 acetaminophen (Tylenol) tablet 1,000 mg 1,000 mg, Oral, Every 8 hours, First dose on Mon01/29/25 at 1630, Recovery & On Unit 0138 (Not Given - Provider: Rlua Ruth RN - Reason: Other - Comment: pt states is in no pain and wishes to sleep)0850 (Given - Provider: Tay Bettencourt RN)1617 (Given - Provider: Tay Bettencourt RN) 0024 (Given - Provider: Rula Ruth RN)0755 (Given - Provider: Razia Rodriguez, ROMAN)1605 (Given - Provider: Razia Rodriguez, RN) 0318 (Not Given - Provider: Cydney Jolley RN - Reason: Patient/family refused)0421 (Given - Provider: Cydney Jolley RN)0848 (Given - Provider: Julio Chowdhury, ROMAN) amiodarone (Pacerone) tablet 400 mg 400 mg, Oral, 2 times daily, First dose on Mon02/01/25 at 1200 0850 (Given - Provider: Tay Bettencourt RN)2104 (Given - Provider: Rula Ruth RN) 08 (Given - Provider: Razia Rodriguez RN)2031 (Given - Provider: Cydney Jolley RN) 0848 (Given - Provider: Julio Chowdhury RN) aspirin chewable tablet 81 mg 81 mg, Oral, Daily, First dose on Mon01/30/25 at 0900 0850 (Given - Provider: Tay Bettencourt RN) 0801 (Given - Provider: Razia Rodriguez RN) 0848 (Given - Provider: Julio Chowdhury, ROMAN) chlorhexidine (Hibiclens) 4 % solution (CANCELED) Topical, Daily, First dose on Mon01/30/25 at 1400, Recovery & On Unit 0400 (Given - Provider: Rula Ruth RN - Comment: AM Bath) chlorhexidine (Peridex) 0.12 % solution 15 mL 15 mL, Mouth/Throat, 2 times daily, First dose on Mon01/29/25 at 2100, For 7 days, Phase II/On Unit, Rinse and spit. Do not swallow. 0851 (Given - Provider: Tay Bettencourt RN)2103 (Given - Provider: Rula Ruth RN) 08 (Given - Provider: Razia Rodriguez RN)2031 (Given - Provider: Cydney Jolley RN) 0849 (Given - Provider: Julio Chowdhury RN) enoxaparin (Lovenox) syringe 40 mg 40 mg, SubCUTAneous, Every 24 hours scheduled (Daily), First dose on Mon01/30/25 at 0900, Indication of Use: Prophylaxis-DVT/PE, Indications: Prophylaxis of Venous Thromboembolism 0849 (Given - Provider: Tay Bettencourt RN) 0800 (Given - Provider: Razia Rodriguez RN) 0848 (Given - Provider: Julio Chowdhury RN) ezetimibe (Zetia) tablet 10 mg 10 mg, Oral, Nightly, First dose on [place] 01/30/25 at 2100 2104 (Given - Provider: Rula Ruth RN) 2031 (Given - Provider: Cydney Jolley RN) furosemide (Lasix) injection 40 mg (CANCELED) 40 mg, IntraVENous, Daily, First dose on Mon02/01/25 at 1115 0850 (Given - Provider: Tay Bettencourt RN) furosemide (Lasix) tablet 40 mg 40 mg, Oral, Daily, First dose on Mon02/03/25 at 0900 0801 (Given - Provider: Razia Rodriguez RN) 0848 (Given - Provider: Julio Chowdhury RN) insulin glargine (Lantus) injection 14 Units (CANCELED) 14 Units, SubCUTAneous, Every morning, First dose (after last modification) on Mon02/02/25 at 0900, Do not hold 0849 (Given - Provider: Tay Bettencourt RN) insulin glargine (Lantus) injection 17 Units (CANCELED) 17 Units, SubCUTAneous, Every morning, First dose (after last modification) on Mon02/03/25 at 0900, Do not hold 0800 (Given - Provider: Razia Rodriguez RN - Comment: BGT 220) insulin glargine (Lantus) injection 22 Units 22 Units, SubCUTAneous, Every morning, First dose (after last modification) on Mon02/04/25 at 0900, Do not hold 0848 (Given - Provider: Julio Chowdhury RN) Insulin Lispro (Humalog) injection 0-12 Units 0-12 Units, SubCUTAneous, 3 times daily with meals, First dose on Mon02/03/25 at 1200, Medium Dose Corrective Algorithm Glucose: Dose: <150 No Insulin 151-200 2 Units 201-250 4 Units 251-300 6 Units 301-350 8 Units 351-400 10 Units Above 400 12 Units AND CALLPHYSICIAN 1251 (Given - Provider: Malka Cano RN)1827 (Given - Provider: Shiraz Lepe RN) 0848 (Given - Provider: Julio Chowdhury RN)1200 (Canceled Entry - Provider: Automatic Discharge Provider - Comment: Automatically canceled at discontinue of medication order) Insulin Lispro (Humalog) injection 0-6 Units (CANCELED) 0-6 Units, SubCUTAneous, 3 times daily with meals, First dose on Mon01/31/25 at 1200, Low dose Sliding scale: <150 = 0 unit 151-200 = 1 unit 201-250 = 2 units 251-300 = 3 units 301-350 = 4 units 351-400 = 5 units > 400 = 6 units and call endocrine 0850 (Given - Provider: Tay Bettencourt, ROMAN)1146 (Given - Provider: Tay Bettencourt, ROMAN)1630 (Given - Provider: Tay Bettencourt, ROMAN) 0754 (Given - Provider: Razia Rodriguez, ROMAN - Comment: BGT 220) Insulin Lispro (Humalog) injection 10 Units 10 Units, SubCUTAneous, 3 times daily with meals, First dose (after last modification) on Mon02/03/25 at 1200, Hold if NPO or not eating, or if BGL <80 1251 (Given - Provider: Malka Cano RN)1827 (Given - Provider: Shiraz Lepe RN) 0848 (Given - Provider: Julio Chowdhury RN)1200 (Canceled Entry - Provider: Automatic Discharge Provider - Comment: Automatically canceled at discontinue of medication order) Insulin Lispro (Humalog) injection 5 Units (CANCELED) 5 Units, SubCUTAneous, 3 times daily with meals, First dose (after last modification) on Mon02/01/25 at 1200, Hold if NPO or not eating, or if BGL <80 0850 (Given - Provider: Tay Bettencourt RN) Insulin Lispro (Humalog) injection 6 Units (CANCELED) 6 Units, SubCUTAneous, 3 times daily with meals, First dose (after last modification) on Mon02/02/25 at 1200, Hold if NPO or not eating, or if BGL <80 1147 (Given - Provider: Tay Bettencourt RN)1630 (Given - Provider: Tay Bettencourt, ROMAN) 0755 (Given - Provider: Razia Rodriguez, ROMAN - Comment: BGT 220) Lidocaine 4 % patch 1 patch 1 patch, Topical, Administer over 12 Hours, Daily, First dose on Mon01/29/25 at 1630, Recovery & On Unit, Cut in half and place on both sides of the incision. Patch may remain in place for up to 12 hours in any 24 hour period. 0849 (Medication Applied - Provider: Tay Bettencourt RN)2005 (Medication Removed - Provider: Rula Ruth RN) 0800 (Medication Applied - Provider: Razia Rodriguez, ROMAN)2025 (Medication Removed - Provider: Cydney Jolley, ROMAN) 0900 (Not Given - Provider: Julio Chowdhury RN - Reason: Patient/family refused) magnesium hydroxide (Milk of Magnesia) 400 MG/5ML suspension 30 mL (CANCELED) 30 mL, Oral, Daily, First dose (after last modification) on 02/01/25 at 0800, Recovery & On Unit 0626 (Given - Provider: Rula Ruth RN) 0632 (Given - Provider: Rula Ruth RN) methocarbamol (Robaxin) tablet 1,000 mg 1,000 mg, Oral, Every 8 hours scheduled (3 times per day), First dose (after last modification) on [place] 01/30/25 at 1630 0626 (Given - Provider: Rula Ruth RN)1345 (Given - Provider: Tay Bettencourt RN)2104 (Given - Provider: Rula Ruth RN) 0632 (Given - Provider: Rula Ruth RN)1505 (Not Given - Provider: Razia Rodriguez, ROMAN - Reason: Patient/family refused)2032 (Given - Provider: Cydney Jolley RN) 0421 (Given - Provider: Cydney Jolley, ROMAN) metoprolol tartrate (Lopressor) tablet 50 mg 50 mg, Oral, 2 times daily, First dose (after last modification) on 02/01/25 at 2100, Hold for SBP less than 105 and/or MAPs less than 65 and/or HR less than 60 0850 (Given - Provider: Tay Bettencourt RN)2104 (Given - Provider: Rula Ruth RN) 0801 (Given - Provider: Razia Rodriguez, ROMAN)203 (Given - Provider: Cydney Jolley, ROMAN) 0848 (Given - Provider: Julio Chowdhury, ROMAN) mupirocin (Bactroban) 2 % ointment (COMPLETED) Nasal, 2 times daily, First dose on Mon01/29/25 at 2100, For 4 days, Phase II/On Unit 0850 (Given - Provider: Tay Bettencourt, ROMAN) pantoprazole (ProtoNix) EC tablet 40 mg 40 mg, Oral, Daily before breakfast, First dose on Mon01/30/25 at 0715, Do not crush, chew, or split. 0626 (Given - Provider: Rula Ruth RN) 0632 (Given - Provider: Rula Ruth, ROMAN) 0421 (Given - Provider: Cydney Jolley, ROMAN) polyethylene glycol (PEG) 3350 (Miralax) packet 17 g 17 g, Oral, Daily, First dose on Mon01/29/25 at 1630, Recovery & On Unit, Bowel Regimen - for prevention of constipation. 0849 (Given - Provider: Tay Bettencourt RN) 0801 (Given - Provider: Razia Rodriguez RN) 0849 (Not Given - Provider: Julio Chowdhury RN - Reason: Patient/family refused) senna-docusate sodium (Senokot-S) 8.6-50 MG tablet 2 tablet 2 tablet, Oral, Nightly, First dose on Mon01/29/25 at 2100, Recovery & On Unit, Bowel Regimen - for prevention of constipation. 2124 (Not Given - Provider: Rula Ruth RN - Reason: Other - Comment: pt states does not wish to take tonight) 2026 (Not Given - Provider: Cydney Jolley RN - Reason: Patient/family refused) sodium chloride 0.9% (NS) flush 5-40 mL (CANCELED) 5-40 mL, IntraCATHeter, Every 8 hours, First dose on Mon01/29/25 at 1630, Recovery & On Unit, For Line Patency: Peripheral IV = 5 mL; Midline or Central Line = 10 mL/lumen. If following IV push medication, administer flush at same rate as the IV push. Flush volume is determined by type of infusion therapy being given. For non-viscous solutions use: Peripheral IV = 5 mL Midline or Central Line = 10 mL/lumen For viscous solutions (i.e. blood components, parenteral nutrition, contrast media, or after obtaining blood sample) use: Peripheral IV = 10 mL Midline or Central Line = 20 mL/lumen 0139 (Given - Provider: Rula Ruth RN)0850 (Given - Provider: Tay Bettencourt RN)1620 (Not Given - Provider: Tay Bettencourt RN - Reason: Other) 0024 (Given - Provider: Rula Ruth RN) PRN Medication Order 02/02/2025 02/03/2025 02/04/2025 albumin human 25 % IV solution 25 g 25 g, IntraVENous, at 60 mL/hr, As needed, fluid bolus challenge PRN: PAD below goal (18) and/or Low BP (less than 90 SBP and/or less than 60 MAP) and/or Low urine output (less than 30ml/hr) per hemodynamic goals, Starting on Mon01/29/25 at 1621, For 2 doses, Phase II/On Unit, To be given in conjunction with PRN 250ml Lactate Ringer Bolus Use if hgb greater than 7.5 and PAD below goal (18) and/or Low BP (less than 90 SBP and/or less than 60 MAP) and/or Low urine output (less than 30ml/hr) per hemodynamic goals If hemodynamic goals unattained, proceed to second fluid bolus challenge If hgb less than 7.5 notify surgeon for orders. calcium gluconate 2000 mg in 100 mL IVPB premix 2,000 mg, IntraVENous, at 50 mL/hr, Administer over 2 Hours, PRN, ionized calcium less than 4.3, Starting on Mon01/29/25 at 1621, Recovery & On Unit, Give 2000 mg for ionized calcium less than 4.3 premix bag dextrose 5 % infusion 100 mL/hr, IntraVENous, PRN, Blood sugar less than 70mg/dL, Starting on Mon01/29/25 at 1621, Recovery & On Unit, Start infusion following administration of dextrose 50% or glucagon. dextrose 50 % solution 12.5 g 12.5 g, IntraVENous, PRN, low blood sugar, Blood glucose less than 70 mg/dL and patient NOT ALERT or NPO., Starting on Mon01/29/25 at 1621, Recovery & On Unit, If patient does not respond within 5 minutes, repeat dose x1. Start D5W at 100 mL/hour until ordering provider can be reached. Repeat blood glucose in 15 minutes. If blood glucose is less than 70 mg/dL, repeat treatment and recheck blood glucose in 15 minutes x2. If using Glucostabilizer, dose as instructed per system. glucagon (human recombinant) injection 1 mg 1 mg, IntraMUSCular, PRN, low blood sugar, Blood glucose less than 70 mg/dL and patient NOT ALERT or NPO and does not have IV access., Starting on Mon01/29/25 at 1621, Recovery & On Unit, After administration, attempt intravenous access and start D5W at 100 mL/hr. Repeat blood glucose in 15 minutes x2 and notify provider. glucose oral gel 15 g 15 g, Oral, As needed, low blood sugar, Starting on Mon01/29/25 at 1621, Recovery & On Unit, If blood glucose less than 50 mg/dL and patient ALERT and NOT NPO, give 2 tubes glucose gel. If blood glucose less than 70 mg/dL and patient ALERT and NOT NPO, give 1 tube glucose gel. Repeat blood glucose in 15 minutes. If blood glucose is less than 70 mg/dL, repeat treatment and recheck blood glucose in 15 minutes x2 and notify provider. ipratropium-albuterol (Duo-Neb) 0.5-2.5 mg/3 mL nebulizer solution 3 mL 3 mL, Nebulization, 3 times daily PRN, wheezing, shortness of breath, Starting on Mon01/29/25 at 1621, Recovery & On Unit lactated ringers bolus 250 mL 250 mL, IntraVENous, at 124 mL/hr, Administer over 121 Minutes, Continuous PRN, fluid bolus challenge: lactated ringers bolus, Starting on Mon01/29/25 at 1621, Phase II/On Unit, To be given in conjunction with PRN 25gm Albumin order Use if hgb greater than 7.5 and PAD below goal (18) and/or Low BP (less than 90 SBP and/or less than 60 MAP) and/or Low urine output (less than 30ml/hr) per hemodynamic goals If hemodynamic goals unattained, proceed to second fluid bolus challenge If hgb less than 7.5 notify surgeon for orders. magnesium sulfate IVPB 4,000 mg(Linked Group 1) 4,000 mg, IntraVENous, at 25 mL/hr, Administer over 4 Hours, As needed, Per Magnesium Replacement Protocol, Starting on Mon01/29/25 at 1621, Recovery & On Unit, Mg Lab Replacement Action 1.4-1.6 2 gram IVPB x 1 doses 1.0-1.3 4 gram IVPB x 1 doses Less than 1.0 CALL PHYSICIAN and 4 gram IVPB x 1 doses Infuse at 1 gram/hr. Repeat Mag level next AM. Not for use in Patients with CrCl less than 30 mL/min. 0632 (See Alternative - Provider: Rula Ruth, ROMAN)0735 (See Alternative - Provider: Razia Rodriguez, RN) magnesium sulfate IVPB premix 2,000 mg(Linked Group 1) 2,000 mg, IntraVENous, at 25 mL/hr, Administer over 2 Hours, As needed, Per Magnesium Replacement Protocol, Starting on Mon01/29/25 at 1621, Recovery & On Unit, Mg Lab Replacement Action 1.4-1.6 2 gram IVPB x 1 doses 1.0-1.3 4 gram IVPB x 1 doses Less than 1.0 CALL PHYSICIAN and 4 gram IVPB x 1 doses Infuse at 1 gram/hr. Repeat Mag level next AM. Not for use in Patients with CrCl less than 30 mL/min. 0632 (New Bag - Provider: Rula Ruth RN)0735 (Stopped - Provider: Razia Rodriguez, ROMAN) melatonin tablet 3 mg 3 mg, Oral, Nightly PRN, sleep, Starting on Mon02/03/25 at 2041 2226 (Given - Provider: Cydney Jolley, RN) naloxone (Narcan) injection 0.4 mg 0.4 mg, IntraVENous, Every 5 min PRN, opioid reversal, respiratory depression, Starting on Mon01/29/25 at 1857, +++ For RR <10, pinpoint pupils, over sedation for opioid reversal - MUST notify windows application packager provider immediately after first dose, may give IM or SQ if no IV access +++ ondansetron (Zofran) injection 4 mg(Linked Group 2) 4 mg, IntraVENous, Every 6 hours PRN, nausea, vomiting, Starting on Mon01/29/25 at 1621, Recovery & On Unit, 1st Line. Give IV if patient is unable to take orally. If inadequate response within 60 minutes, proceed to next-line agent or contact provider if no further options ordered. ondansetron ODT (Zofran-ODT) disintegrating tablet 4 mg(Linked Group 2) 4 mg, Oral, Every 8 hours PRN, nausea, vomiting, Starting on Mon01/29/25 at 1621, Recovery & On Unit, 1st Line. If inadequate response within 60 minutes, proceed to next-line agent or contact provider if no further options ordered. Patient should allow tablet to dissolve on tongue. Do not remove from blister pack until just before administering. oxyCODONE (Roxicodone) immediate release tablet 10 mg(Linked Group 3) 10 mg, Oral, Every 6 hours PRN, severe pain (7-10), Starting on Mon02/03/25 at 0730 oxyCODONE (Roxicodone) immediate release tablet 5 mg(Linked Group 3) 5 mg, Oral, Every 6 hours PRN, moderate pain (4-6), Starting on Mon02/03/25 at 0730 potassium chloride 20 mEq in NS 250 mL IVPB (premix)(Linked Group 4) 20 mEq, IntraVENous, Administer over 2 Hours, Every 8 hours PRN, hypokalemia, Starting on Mon01/29/25 at 1621, Recovery & On Unit, For Peripheral Line Use K Lab Replacement Action 3.1-3.5 20 mEq IVPB x 1 doses 2.7-3.0 40 mEq IVPB x 1 doses less than 2.7 CALL PROVIDER and administer 40 mEq IVPB x 1 dose Infuse at 10 mEq/hr Repeat Potassium lab 1 hour after administration. Protocol not for use in Patients with CrCl less than 30mL/min potassium chloride 40 mEq in NS 500 mL IVPB (premix)(Linked Group 4) 40 mEq, IntraVENous, at 125 mL/hr, Administer over 4 Hours, 3 times daily PRN, hypokalemia, Starting on Mon01/29/25 at 1621, Recovery & On Unit, For Peripheral Line Use. K Lab Replacement Action 3.1-3.5 20 mEq IVPB x 1 doses 2.7-3.0 40 mEq IVPB x 1 doses less than 2.7 CALL PROVIDER and administer 40 mEq IVPB x 1 dose Infuse at 10 mEq/hr Repeat Potassium lab 1 hour after administration. Protocol not for use in Patients with CrCl less than 30mL/min potassium chloride CR (Klor-Con M10) ER tablet 20 mEq 20 mEq, Oral, PRN, Hypokalemia, Starting on [place] 01/30/25 at 0000, Phase II/On Unit, If patient is intubated or not tolerating PO use PRN IV replacement protocol Potassium level Dose LESS than 3.0 = Give 20 mEq x 3 doses 3.0-3.6 = Give 20 mEq x 2 doses Recheck potassium level 2 hour after replacement given, place order for lab under [place] If potassium level LESS than 3 after 1st replacement: Call surgeon. Do not crush or break. Do not crush or chew. 0655 (Given - Provider: Rula Ruth, RN)0656 (Given - Provider: Rula Ruth, RN) 0632 (Given - Provider: Rula Ruth, RN)0633 (Given - Provider: Rula Ruth, RN) potassium chloride IVPB 20 mEq(Linked Group 4) 20 mEq, IntraVENous, at 50 mL/hr, Administer over 1 Hours, 3 times daily PRN, hypokalemia, Starting on Mon01/29/25 at 1621, Recovery & On Unit, For Central Line Use Only K Lab Replacement Action 3.1-3.5 20 mEq IVPB x 2 doses 2.7-3.0 20 mEq IVPB x 2 doses (40 mEq Total) less than 2.7 CALL PROVIDER and administer 20 mEq IVPB x 2 doses (40 mEq Total) Infuse at 20 mEq/hr Repeat Potassium lab 1 hour after final administration. Protocol not for use in Patients with CrCl less than 30mL/min For central line administration only. prochlorperazine (Compazine) injection 5 mg 5 mg, IntraVENous, Every 8 hours PRN, nausea, vomiting, Starting on [place] 01/30/25 at 0645, 2nd line Linked Groups Order Group 1: magnesium sulfate IVPB premix 2,000 mgJump to med 2,000 mg, IntraVENous, at 25 mL/hr, Administer over 2 Hours, As needed, Per Magnesium Replacement Protocol, Starting on Mon01/29/25 at 1621, Recovery & On Unit, Mg Lab Replacement Action 1.4-1.6 2 gram IVPB x 1 doses 1.0-1.3 4 gram IVPB x 1 doses Less than 1.0 CALL PHYSICIAN and 4 gram IVPB x 1 doses Infuse at 1 gram/hr. Repeat Mag level next AM. Not for use in Patients with CrCl less than 30 mL/min. Or magnesium sulfate IVPB 4,000 mgJump to med 4,000 mg, IntraVENous, at 25 mL/hr, Administer over 4 Hours, As needed, Per Magnesium Replacement Protocol, Starting on Mon01/29/25 at 1621, Recovery & On Unit, Mg Lab Replacement Action 1.4-1.6 2 gram IVPB x 1 doses 1.0-1.3 4 gram IVPB x 1 doses Less than 1.0 CALL PHYSICIAN and 4 gram IVPB x 1 doses Infuse at 1 gram/hr. Repeat Mag level next AM. Not for use in Patients with CrCl less than 30 mL/min. Group 2: ondansetron ODT (Zofran-ODT) disintegrating tablet 4 mgJump to med 4 mg, Oral, Every 8 hours PRN, nausea, vomiting, Starting on Mon01/29/25 at 1621, Recovery & On Unit, 1st Line. If inadequate response within 60 minutes, proceed to next-line agent or contact provider if no further options ordered. Patient should allow tablet to dissolve on tongue. Do not remove from blister pack until just before administering. Or ondansetron (Zofran) injection 4 mgJump to med 4 mg, IntraVENous, Every 6 hours PRN, nausea, vomiting, Starting on Mon01/29/25 at 1621, Recovery & On Unit, 1st Line. Give IV if patient is unable to take orally. If inadequate response within 60 minutes, proceed to next-line agent or contact provider if no further options ordered. Group 3: oxyCODONE (Roxicodone) immediate release tablet 5 mgJump to med 5 mg, Oral, Every 6 hours PRN, moderate pain (4-6), Starting on Mon02/03/25 at 0730 Or oxyCODONE (Roxicodone) immediate release tablet 10 mgJump to med 10 mg, Oral, Every 6 hours PRN, severe pain (7-10), Starting on Mon02/03/25 at 0730 Group 4: potassium chloride IVPB 20 mEqJump to med 20 mEq, IntraVENous, at 50 mL/hr, Administer over 1 Hours, 3 times daily PRN, hypokalemia, Starting on Mon01/29/25 at 1621, Recovery & On Unit, For Central Line Use Only K Lab Replacement Action 3.1-3.5 20 mEq IVPB x 2 doses 2.7-3.0 20 mEq IVPB x 2 doses (40 mEq Total) less than 2.7 CALL PROVIDER and administer 20 mEq IVPB x 2 doses (40 mEq Total) Infuse at 20 mEq/hr Repeat Potassium lab 1 hour after final administration. Protocol not for use in Patients with CrCl less than 30mL/min For central line administration only. Or potassium chloride 20 mEq in NS 250 mL IVPB (premix)Jump to med 20 mEq, IntraVENous, Administer over 2 Hours, Every 8 hours PRN, hypokalemia, Starting on Mon01/29/25 at 1621, Recovery & On Unit, For Peripheral Line Use K Lab Replacement Action 3.1-3.5 20 mEq IVPB x 1 doses 2.7-3.0 40 mEq IVPB x 1 doses less than 2.7 CALL PROVIDER and administer 40 mEq IVPB x 1 dose Infuse at 10 mEq/hr Repeat Potassium lab 1 hour after administration. Protocol not for use in Patients with CrCl less than 30mL/min Or potassium chloride 40 mEq in NS 500 mL IVPB (premix)Jump to med 40 mEq, IntraVENous, at 125 mL/hr, Administer over 4 Hours, 3 times daily PRN, hypokalemia, Starting on Mon01/29/25 at 1621, Recovery & On Unit, For Peripheral Line Use. K Lab Replacement Action 3.1-3.5 20 mEq IVPB x 1 doses 2.7-3.0 40 mEq IVPB x 1 doses less than 2.7 CALL PROVIDER and administer 40 mEq IVPB x 1 dose Infuse at 10 mEq/hr Repeat Potassium lab 1 hour after administration. Protocol not for use in Patients with CrCl less than 30mL/min FOR RECORDS PERTAINING TO PATIENTS WHO ARE [...] BE BASED ON THE PRIMARY CLINICAL RECORDS. [employer] provides no warranty or guarantee of the accuracy or completeness of information in this document.
--- NOTE | 2025-02-09 22:45 | CT_ITS ---
PROCEDURE: ABDOMEN/PELVIS W IV CONT ONLY 02/09/2025 REASON FOR EXAM: DIARRHEA, BRBPR TECHNIQUE: Procedure Code: [id number] Modality: CT Procedure: ABDOMEN/PELVIS W IV CONT ONLY Coronal and Sagittal reconstruction series were provided. CONTRAST: VOLUME: mL One or more dose reduction techniques were used (e.g., Automated exposure control, adjustment of the mA and/or kV according to patient size, use of iterative reconstruction technique. FINDINGS: Small bilateral pleural effusions. A small consolidated density in the left lung base could represent infiltrates or atelectasis. The heart is mildly enlarged. Fluid levels are noted throughout the colon suggestive of a diarrheal illness. A few diverticula are seen throughout the colon. Mild fat stranding and haziness surrounding a diverticulum in the right side of the colon (series 2 image 60, series 601.2 images 48 and 49), concerning for mild diverticulitis. No abnormal bowel wall thickening. The appendix is visualized and normal-appearing. No evidence of bowel obstruction. A 3 mm hyperdensity within the left renal pelvis could represent a small nonobstructing stone or early contrast excretion (series 2 image 62). Moderate levoconvex thoracolumbar scoliosis with moderate spondylosis. 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 No other acute abdominal or pelvic process is identified. CT/Abdomen/Pelvis W IV Cont ONLY IMPRESSION: 1. Small bilateral pleural effusions. 2. Small consolidated density in the left lung base could represent infiltrate s or atelectasis. 3. Fluid levels throughout the colon suggestive of a diarrheal illness. 4. Scattered colonic diverticula, with mild fat stranding and haziness surroun ding a right-sided colonic diverticulum, concerning for mild diverticulitis. 5. Possible nonobstructing 3 mm left nephrolithiasis. Reading Location: [id number]
--- NOTE | 2025-02-09 22:46 | EX.ED.DYSGE1 ---
HPI History of Present Illness Chief Complaint: Nausea/Vomiting/Diarrhea Informant: patient Narrative Narrative: Patient is a 69-year-old male with history of coronary artery disease, hypertension, diabetes, GERD, hyperlipidemia and recent CABG x [address] Herrera on 01/29/2025. He was just discharged home 5 days ago. C20 was discharged home eatings his hemoglobin was 9. He states that he has been on a pretty significant stool regiment but since being home he has been having regular diarrhea. Today it increased in frequency and he is gone 3-5 times. He notes an hour prior to arrival he started to have bright red blood/liquid in the stool. He states that he could still see the bottom of the toilet bowl but it was quite a lot of blood. Denies any clots. Did not take a picture of it. Denies any history of any GI bleeding. Is on 81 mg aspirin but states he is not on any other blood thinners. Is having abdominal discomfort and a sensation of feeling he has to have more bowel movements but nothing is coming out anymore. Denies any history of colitis. He came in for further evaluation. [facility] Medical History (Updated 02/10/25 @ 01:[address] Geri Johnson, DO) CAD (coronary artery disease) Hyperlipidemia Osteoarthritis Gout GERD (gastroesophageal reflux disease) Lumbar stenosis History of kidney stones Diabetes Hypertension Home Medications ?Medication ?Instructions ?Recorded ?Last Taken ?Type aspirin 81 mg tablet,delayed 81 mg PO QDAY blood thinner 12/11/24 12/25/24 History release (Adult Aspirin Regimen) cholecalciferol (vitamin D3) 50 50 mcg PO QDAY supplement 12/11/24 Unknown History mcg (2,000 unit) capsule coenzyme Q10 100 mg capsule 100 mg PO QDAY supplement 12/11/24 Unknown History ezetimibe 10 mg tablet (Zetia) 10 mg PO QDAY #30 tabs 12/11/24 Unknown Rx famotidine 40 mg tablet 40 mg PO QDAY gerd 12/11/24 Unknown History glimepiride 2 mg tablet 2 mg PO DAILY dm 12/11/24 12/25/24 History metformin 500 mg tablet 500 mg PO TID dm 12/11/24 12/24/24 History multivitamin 1 tab PO QAM supplement 12/11/24 Unknown History semaglutide 1 mg/dose (4 mg/3 mL) 1 mg subcut QWEEK Type 2 diabetic 12/11/24 Unknown History subcutaneous pen injector (Ozempic) amiodarone 200 mg tablet 400 mg PO DAILY heart 02/10/25 Unknown History furosemide 40 mg tablet 40 mg PO DAILY water pill 02/10/25 Unknown History methocarbamol 500 mg tablet 1,000 mg PO Q8H cramps 02/10/25 Unknown History metoprolol tartrate 50 mg tablet 50 mg PO BID heart 02/10/25 Unknown History oxycodone 5 mg tablet 5 mg PO Q6H PRN pain 02/10/25 Unknown History potassium chloride 20 mEq 20 meq PO DAILY supplement 02/10/25 Unknown History tablet,extended release(part/cryst) Allergy/AdvReac Type Severity Reaction Status Date / Time pravastatin Allergy fatigue Verified 02/09/25 21:28 enalapril AdvReac Intermediate cough Verified 02/09/25 21:28 rosuvastatin (From Crestor) AdvReac Intermediate fatigue Verified 02/09/25 21:28 Family History Father CAD (coronary artery disease) Cancer melanoma Mother Diabetes Brother CAD (coronary artery disease) Surgical History (Updated 02/10/25 @ 01:[address] Geri Johnson DO) S/P CABG x 3 History of back surgery H/O right knee surgery S/P right rotator cuff repair S/P left rotator cuff repair Social History household members: spouse Smoking Status: Never smoker alcohol intake: never substance use type: does not use ROS ROS ED Constitutional Constitutional ED: Denies chills or fever(s) Cardiovascular Cardiovascular: Denies chest pain or palpitations Respiratory/Chest Respiratory/Chest: Denies cough or dyspnea Gastrointestinal Gastrointestinal: Reports abdominal pain, diarrhea and other Details: Bright red blood per rectum ; Denies vomiting Genitourinary Genitourinary ED: Denies dysuria Musculoskeletal Musculoskeletal: Denies back pain or myalgias Integumentary Denies rash Neurologic Neurologic: Denies weakness Hematologic/Lymphatic Hematologic/Lymphatic: Denies easy bleeding or easy bruising EXAM Physical Exam Const Vital Signs: 02/09/25 21:28 02/09/25 21:30 02/09/25 22:30 Temperature 96.9 F L 96.9 F L 96.9 F L Temperature Source Temporal Temporal Temporal Pulse Rate 73 67 65 Respiratory Rate 18 13 14 Blood Pressure 175/86 H 171/84 H 173/75 H Blood Pressure Mean 115 113 107 Pulse Ox 100 97 95 Oxygen Delivery Method Room Air Room Air 02/09/25 23:00 02/10/25 00:00 02/10/25 00:40 Temperature 98.4 F 98.6 F Temperature Source Oral Pulse Rate 72 63 67 Respiratory Rate 17 18 15 Blood Pressure 143/77 H 136/68 H 135/58 H Blood Pressure Mean 99 90 83 Pulse Ox 98 97 100 Oxygen Delivery Method Room Air Room Air Positive well nourished and well developed General Appearance ED: well developed and NAD HEENT Reports moist mucous membranes Eyes PERRL General Eye ED: Negative for pale conjunctiva Neck supple and no JVD Chest Wall Chest Narrative: Midline sternotomy scar with Dermabond in place. No abnormal erythema or infectious findings Resp normal respiratory effort and clear to auscultation bilaterally Cardio regular rate, regular rhythm and no murmurs GI non-tender GI Narrative: Mild diffuse lower abdominal discomfort. Chaperoned rectal exam performed?no external hemorrhoids. Scant blood noted with no stool. Inspection: abdominal distention Auscultation: hyperactive bowel sounds Palpation: soft and tender; Negative for guarding, mass or rebound tenderness present Back/Spine no CVA tenderness Extremity normal to inspection Extremity Narrative: 1+ edema of the left lower extremity compared to the right (this was the leg of his vein harvesting) Neuro oriented x3 Sensorium / Orientation: alert Motor Exam: Negative for general weakness Psych mental status grossly normal Skin Skin Narrative: Surgical incisions of the left lower extremity, anterior midline chest wall as well as upper abdomen consistent with recent CABG. No secondary signs of infection. Appear to be healing appropriately. MDM MDM MDM Narrative Medical decision making narrative: Patient is evaluated for bright red blood per rectum, frequent bowel movements and diarrhea has been progressing over the past few days however the blood just developed tonight. Differential includes effect of laxatives, medication reaction, C. difficile, diverticulitis, ischemic colitis, infectious colitis, symptomatic anemia and hemorrhoidal bleeding. On exam I do not appreciate any external hemorrhoids or fissures. Patient does have passage of further blood which is not melanotic but more maroon in color. Hemoglobin is likely stable for him at 10.1 (states it was 9 earlier this week). Does not have a leukocytosis. Coags obtained. Lactate elevated 2.2 differential for this including hypovolemia/dehydration versus infectious. Does have an elevation of creatinine of 1.3 however this is near his baseline of 1.19-1.27 and he does not have an PLACIDO. He is given only gentle IV fluids in the emergency room. Lipase is mildly elevated at 149 however he is not having epigastric pain so lower suspicion for acute pancreatitis. Urinalysis is not consistent with infection. CT of the abdomen and pelvis shows small bilateral pleural effusions, infiltrate versus atelectasis of the left lung base (clinically suspect this is atelectasis as he is not having any acute respiratory symptoms and the 100% on room air with no leukocytosis or fever) fluid level throughout the colon suggestive of diarrhea and right sided colonic diverticula with surrounding fat stranding haziness which could be mild diverticulitis. Patient is started on Cipro and Flagyl for concern of diverticulitis. His [place] score for lower GI bleeding Is 19 which gives him a 50 to 62% probability of safe discharge and therefore will be admitted. His initial stool study does come back positive for fecal lactoferrin as well as positive for toxigenic C. difficile. Patient is also given oral vancomycin in the ER to treat for acute C. difficile infection which could be the cause of his symptoms. Will be admitted for further hemodynamic monitoring and symptom control. Was given oral Bentyl with improvement of his cramping abdominal pain in the emergency room. Lab Data Attestation: I reviewed the patient's lab results. Labs: Laboratory Results - last 24 hr 02/09/25 02/09/25 21:46 22:13 WBC 10.3 RBC 3.30 L Hgb 10.1 L Hct 30.5 L MCV 92.4 MCH 30.6 MCHC 33.1 RDW Std Deviation 42.5 RDW Coeff of Susy 12.7 Plt Count 487 H MPV 9.6 Immature Gran % (Auto) 1.700 H Neut % (Auto) 79.3 H Lymph % (Auto) 8.8 L [place] % (Auto) 6.8 Eos % (Auto) 2.7 Baso % (Auto) 0.7 Absolute Neuts (auto) 8.2 H Absolute Lymphs (auto) 0.91 Nucleated RBC % 0 PT 14.5 INR 1.1 APTT 39.7 H Sodium 138 Potassium 4.1 Chloride 100 Carbon Dioxide 22.5 Anion Gap 15 BUN 17 Creatinine 1.30 H Estim Creat Clear Calc 311.35 H Est GFR (MDRD) Non-Af 59 L BUN/Creatinine Ratio 13.3 Glucose 152 H Lactic Acid 2.2 H* Calcium 9.8 Magnesium 1.5 Total Bilirubin 0.22 AST 22 ALT 20 Alkaline Phosphatase 106 Total Protein 7.0 Albumin 3.8 Globulin 3.2 Albumin/Globulin Ratio 1.2 Lipase 149 H Urine Color Yellow Urine Clarity Sl Cldy Urine pH 5.0 Ur Specific [place] 1.020 Urine Protein 30 H Urine Glucose (UA) Normal Urine Ketones Negative Urine Occult Blood Negative Urine Nitrite Negative Urine Bilirubin Negative Urine Urobilinogen Normal Ur Leukocyte Esterase Negative Urine RBC 0-5 SEEN Urine WBC 0-5 SEEN Ur Squamous Epith Cells 0-5 SEEN Urine Bacteria 0 SEEN Urine Mucus 0 SEEN Radiography Diagnostic Testing: Clinical Impression(s) from Imaging Studies Abdomen/Pelvis CT 02/09/25 22:45 IMPRESSION: 1. Small bilateral pleural effusions. 2. Small consolidated density in the left lung base could represent infiltrates or atelectasis. 3. Fluid levels throughout the colon suggestive of a diarrheal illness. 4. Scattered colonic diverticula, with mild fat stranding and haziness surrounding a right-sided colonic diverticulum, concerning for mild diverticulitis. 5. Possible nonobstructing 3 mm left nephrolithiasis. Reading Location: [facility] Discharge Plan Dx/Rx/DC Orders Clinical Impression: Acute lower gastrointestinal bleeding, Diarrhea, C. difficile colitis, S/P CABG x 3, Anemia Disposition Disposition: [facility]
[2025-02-09 22:52] LABS: Red Blood Cells-Urine 0-5 SEEN /hpf (0-5); Squamous Epithelial Cells - UA 0-5 SEEN /hpf (0-5)
[2025-02-09 23:00] VITALS: BP 143/77; PULSE 72; RESP 17; TEMP 36.9; O2SAT 98
[2025-02-09 23:27] LABS: Lipase 149 U/L (13-75)
[2025-02-10] VITALS (10 sets, daily range): BP systolic 135–163; BP diastolic 58–80; PULSE 63–84; RESP 15–18; TEMP 36.8–37.1; O2SAT 95–100; BMI 23.8
--- NOTE | 2025-02-10 00:41 | PCM.HP.STD ---
HPI - General General Date of Admission: 02/10/25 Date of Service: 02/10/25 Chief Complaint: N/V/D HPI Narrative The patient is a 69 y/o M w/ PMHx: HTN, HLD, GERD, CKD stage III unclear subtype per GFR trending, Diabetes mellitus type II, PAF, CAD s/p CABG x 3 01/29/2925 who presents to the [facility] ED on 02/10/2025 discharged 5 days previous from current intervention with significant onset loose stools noted to be on a bowel regimen with increased frequency on day prior to presentation going at least 3-5 times a day however approximate 1 hour prior to arrival he noted onset of bright red blood/liquid in his stool enough so that he could not see through the water in the toilet with no previous history of GI bleed only on aspirin therapy with the ongoing sensation that he needs to have an additional bowel movement but nothing is coming out prompting eventual ED evaluation. He denies any associate abdominal cramping or pain. Workup in the ED included T96.9 Temporal, heart rate 73, BP 175/86, respiratory rate 18, 100% on room air with most recent repeat vitals T98.4 Oral, heart rate 63, BP 136/68, respiratory rate 18, 97% room air, CBC with WBC 10.3, hemoglobin 10.1, MCV 92.4, platelet 47 with left shift, unremarkable coags aside PTT 39.7, CMP with BUN/creatinine 17/1.30, GFR 59, glucose 152, lactic acid 2.2, magnesium 1.5, lipase 149, hepatic profile otherwise unremarkable, urinalysis with specific gravity 1.020, protein 30 otherwise unremarkable, CT abdomen and pelvis with small bilateral pleural effusions, small consolidate density left lung base possible infiltrate versus atelectasis, fluid levels throughout the colon suggestive of diarrheal illness, scattered colonic diverticula with mild fat stranding and haziness surrounding the right sided colonic diverticulum concerning for mild diverticulitis, possible nonobstructing 3 mm left nephrolithiasis, ED initiated C. difficile positive toxigenic detected/stool lactoferrin positive as well as enteric pathogens which is pending upon request evaluation of patient. In the ED patient administered maintenance IV fluids normal saline, ciprofloxacin 40 mg IV x 1, metronidazole 500 mg IV x 1, dicyclomine 10 mg p.o. x 1. [facility] Medical History (Updated 02/10/25 @ 01:[address] Kadi James MD) CAD (coronary artery disease) Hyperlipidemia Osteoarthritis Gout GERD (gastroesophageal reflux disease) Lumbar stenosis History of kidney stones Diabetes Hypertension Home Medications ?Medication ?Instructions ?Recorded ?Last Taken ?Type aspirin 81 mg tablet,delayed 81 mg PO QDAY blood thinner 12/11/24 12/25/24 History release (Adult Aspirin Regimen) cholecalciferol (vitamin D3) 50 50 mcg PO QDAY supplement 12/11/24 Unknown History mcg (2,000 unit) capsule coenzyme Q10 100 mg capsule 100 mg PO QDAY supplement 12/11/24 Unknown History ezetimibe 10 mg tablet (Zetia) 10 mg PO QDAY #30 tabs 12/11/24 Unknown Rx famotidine 40 mg tablet 40 mg PO QDAY gerd 12/11/24 Unknown History glimepiride 2 mg tablet 2 mg PO DAILY dm 12/11/24 12/25/24 History metformin 500 mg tablet 500 mg PO TID dm 12/11/24 12/24/24 History multivitamin 1 tab PO QAM supplement 12/11/24 Unknown History semaglutide 1 mg/dose (4 mg/3 mL) 1 mg subcut QWEEK Type 2 diabetic 12/11/24 Unknown History subcutaneous pen injector (Ozempic) amiodarone 200 mg tablet 400 mg PO DAILY heart 02/10/25 Unknown History furosemide 40 mg tablet 40 mg PO DAILY water pill 02/10/25 Unknown History methocarbamol 500 mg tablet 1,000 mg PO Q8H cramps 02/10/25 Unknown History metoprolol tartrate 50 mg tablet 50 mg PO BID heart 02/10/25 Unknown History oxycodone 5 mg tablet 5 mg PO Q6H PRN pain 02/10/25 Unknown History potassium chloride 20 mEq 20 meq PO DAILY supplement 02/10/25 Unknown History tablet,extended release(part/cryst) Allergy/AdvReac Type Severity Reaction Status Date / Time pravastatin Allergy fatigue Verified 02/09/25 21:28 enalapril AdvReac Intermediate cough Verified 02/09/25 21:28 rosuvastatin (From Crestor) AdvReac Intermediate fatigue Verified 02/09/25 21:28 Family History Father CAD (coronary artery disease) Cancer melanoma Mother Diabetes Brother CAD (coronary artery disease) Surgical History S/P CABG x 3 History of back surgery H/O right knee surgery S/P right rotator cuff repair S/P left rotator cuff repair Social History household members: spouse Smoking Status: Never smoker alcohol intake: never substance use type: does not use ROS ROS Narrative Admission Review of Systems: CONSTITUTIONAL: No weight loss, fever, chills, + weakness or fatigue. HEENT: Eyes: No visual loss, blurred vision, double vision or yellow sclerae. Ears, Nose, Throat: No hearing loss, sneezing, congestion, runny nose or sore throat. SKIN: No rash or itching, lesions, wounds. CARDIOVASCULAR: No chest pain, chest pressure or chest discomfort, palpitations, edema, orthopnea, syncopal events. RESPIRATORY: No shortness of breath, cough or sputum, wheezing, hemoptysis. GASTROINTESTINAL: + anorexia, nausea, vomiting, diarrhea, dark red blood per rectum, tenesmus. No abdominal pain/cramping, melena. GENITOURINARY: No dysuria, frequency, urgency or retention. NEUROLOGICAL: No headache, dizziness, syncope, paralysis, ataxia, numbness or tingling in the extremities, focal weakness, change in bowel or bladder control, seizure. MUSCULOSKELETAL: + muscle, back pain, joint pain or stiffness. HEMATOLOGIC: + Acute anemia, stable per report from recent admission following CABG, no reported easy history of bleeding/bruising.. LYMPHATICS: No enlarged nodes. No history of splenectomy. PSYCHIATRIC: No history of depression or anxiety. ENDOCRINOLOGIC: No reports of sweating, cold or heat intolerance. No polyuria or polydipsia. ALLERGIES: No history of asthma, hives, eczema or rhinitis. Vital Signs Vital Signs Vital Signs: 02/09/25 21:28 02/09/25 21:30 02/09/25 22:30 Temperature 96.9 F L 96.9 F L 96.9 F L Temperature Source Temporal Temporal Temporal Pulse Rate 73 67 65 Respiratory Rate 18 13 14 Blood Pressure 175/86 H 171/84 H 173/75 H Blood Pressure Mean 115 113 107 Pulse Ox 100 97 95 Oxygen Delivery Method Room Air Room Air 02/09/25 23:00 02/10/25 00:00 02/10/25 00:40 Temperature 98.4 F 98.6 F Temperature Source Oral Pulse Rate 72 63 67 Respiratory Rate 17 18 15 Blood Pressure 143/77 H 136/68 H 135/58 H Blood Pressure Mean 99 90 83 Pulse Ox 98 97 100 Oxygen Delivery Method Room Air Room Air Weight Weight: 1999 lb 14.4 oz Body Mass Index (BMI) 237.1 Physical Exam Narrative Physical Examination: General: Awake, alert, oriented x 3 and cooperative, seated upright in the ED bed, fatigued otherwise no acute distress. Skin: Normal color, normal turgor, no icterus, no cyanosis except occasional stage ecchymoses, abrasion, several status post CABG scars, all well-appearing including harvesting sites on the left lower extremity and chest tube sites beneath the midline scar on the chest. HEENT: AT/NC, EOMI, PERRLA, mildly dry MM, no carotid bruits or JVD noted. Lungs: Mildly diminished, greater bases, appropriate effort, no rales, ronchi or wheezing, see skin. Heart: Regular rate and rhythm; no gallop, rub audible. Abdomen: Soft, NTTP, ND, hyperactive BS, no appreciated HSM. Extremities: No cyanosis, no clubbing, no significant distal edema, see skin. Neurological: Patient awake, alert, oriented as noted, cognitive function intact; pupils equally reactive to light and accommodation, cranial nerves grossly normal, moving all 4 extremities, no focal deficits, strength moderately globally decreased Psychiatric: Affect appears fatigued otherwise normal, no acute evidence of depressive or anxiety feelings. Results Lab / Micro Data 02/09/25 21:46 02/09/25 21:46 Labs: Laboratory Results - last 24 hr 02/09/25 21:46: WBC 10.3, RBC 3.30 L, Hgb 10.1 L, Hct 30.5 L, MCV 92.4, MCH 30.6, MCHC 33.1, RDW Std Deviation 42.5, RDW Coeff of Susy 12.7, Plt Count 487 H, MPV 9.6, Immature Gran % (Auto) 1.700 H, Neut % (Auto) 79.3 H, Lymph % (Auto) 8.8 L, [place] % (Auto) 6.8, Eos % (Auto) 2.7, Baso % (Auto) 0.7, Absolute Neuts (auto) 8.2 H, Absolute Lymphs (auto) 0.91, Nucleated RBC % 0, PT 14.5, INR 1.1, APTT 39.7 H, Sodium 138, Potassium 4.1, Chloride 100, Carbon Dioxide 22.5, Anion Gap 15, BUN 17, Creatinine 1.30 H, Estim Creat Clear Calc 311.35 H, Est GFR (MDRD) Non-Af 59 L, BUN/Creatinine Ratio 13.3, Glucose 152 H, Lactic Acid 2.2 H*, Calcium 9.8, Magnesium 1.5, Total Bilirubin 0.22, AST 22, ALT 20, Alkaline Phosphatase 106, Total Protein 7.0, Albumin 3.8, Globulin 3.2, Albumin/Globulin Ratio 1.2, Lipase 149 H 02/09/25 22:13: Urine Color Yellow, Urine Clarity Sl Cldy, Urine pH 5.0, Ur Specific [place] 1.020, Urine Protein 30 H, Urine Glucose (UA) Normal, Urine Ketones Negative, Urine Occult Blood Negative, Urine Nitrite Negative, Urine Bilirubin Negative, Urine Urobilinogen Normal, Ur Leukocyte Esterase Negative, Urine RBC 0-5 SEEN, Urine WBC 0-5 SEEN, Ur Squamous Epith Cells 0-5 SEEN, Urine Bacteria 0 SEEN, Urine Mucus 0 SEEN Micro: Microbiology 02/09/25 23:17 Stool Stool Lactoferrin - Final 02/09/25 23:17 Stool Clostridioides difficile (PCR) - Final Imaging Radiology Impression Abdomen/Pelvis CT 02/09/25 22:45 IMPRESSION: 1. Small bilateral pleural effusions. 2. Small consolidated density in the left lung base could represent infiltrates or atelectasis. 3. Fluid levels throughout the colon suggestive of a diarrheal illness. 4. Scattered colonic diverticula, with mild fat stranding and haziness surrounding a right-sided colonic diverticulum, concerning for mild diverticulitis. 5. Possible nonobstructing 3 mm left nephrolithiasis. Reading Location: [facility] Assessment & Plan Assessment/Plan (1) C. difficile colitis: PLAN: Plan The patient is a 69 y/o M w/ PMHx: HTN, HLD, GERD, CKD stage III unclear subtype per GFR trending, Diabetes mellitus type II, PAF, CAD s/p CABG x 3 01/29/2925 who presents to the [facility] ED on 02/10/2025 discharged 5 days previous from current intervention with significant onset loose stools noted to be on a bowel regimen with increased frequency on day prior to presentation going at least 3-5 times a day however approximate 1 hour prior to arrival he noted onset of bright red blood/liquid in his stool enough so that he could not see through the water in the toilet prompting ED evaluation. #1. Acute C. difficile colitis with associated nausea/emesis/diarrhea with associated Acute GI Bleed w/ resultant Acute Blood Loss Anemia on chronic from recent decrease following CABG with associated lactic acidosis: Admission hemoglobin 10.1, MCV 92.4, baseline hemoglobin noted previously primarily 13 range; however, this was previous to his CABG and per report his most recent hemoglobin following his intervention on discharge was 9, will request records from recent admission. Will admit to [facility] given stable VS, no cardiac complaints, will maintain on judicious IV fluids, will cycle H&H, will maintain on IV PPI until oral intake tolerated and transition off as able especially given recent C. difficile diagnosis, will maintain on oral vancomycin and IV flagyl combination given need to resolve bleeding earlier given need for ASA, will have antiemetics to encourage this ability, will have as needed pain regimen, given C. difficile positive will defer abx this time in order to not worsen the situation. May consider ID consultation if not improving as expected. #2. CAD: Status post recent CABG x [address] Herrera on 01/29/2025, discharged from facility 5 days prior to current presentation, given #1 will very cautiously temporarily hold aspirin, per current list does not appear to be on statin, continue ezetimibe, continue metoprolol with hold parameters, not on ACEI/ARB per current list but clarifying as had been per prior list. #3. Diabetes mellitus type II: Hold oral home regimen, continue home insulin regimen at one half dose while n.p.o. versus hold if blood sugar trending decreased, will maintain on clear liquids until clinically improving, maintain in the interim on every 6 hours accu checks w/ ISS. #4. PAF: Will continue patient home metoprolol regimen, not chronically antiquated per current list. #5. Chronic Kidney Disease Stage III, unclear subtype or GFR trending: Admission BUN/Cr 17/1.30, GFR 59, primarily consistent with stage III of note, baseline renal function 1.1-1.2, repeat BMP in AM. #6. Hypertension: Continue home regimen including metoprolol, holding Lasix given presentation, PRN hydralazine. #7. Hyperlipidemia: Will continue patient ezetimibe regimen. #8. GERD: Will maintain on IV PPI cautiously given c-dff positive but given N/V, GI bleed associated will utilize, transition off once improving. #9. DVT prophylaxis: SCDs. #10. CODE status: Full Code status. Charges/Coding Visit Charges Inpatient E&M: 11156 Init Hosp L3
--- OUTSIDE RECORDS SUMMARY | 2025-02-10 00:56 | XMS RPT_ITS | CCD ---
Author Organization [facility] Care Team Providers Care Cooker Process Cheese Name Role Phone Dr. Miriam Gomez DO Primary Care Provider Dr. Miriam Gomez DO Attending Provider [phone] Dr. Miriam Gomez DO Referring Provider [phone] Jason LUKE, Dr. Cotton Other Provider Dr. Stone Williamson [...] Care Unavailable Jason, Miriam Consulting Unavailable Teri, [place] Attending Unavailable Jason, Miriam Referring Unavailable Teri, [place] Attending Unavailable Jason, Miriam Primary Care Unavailable Etri, Bristol Attending Unavailable Jason, Miriam Primary Care Unavailable [...] Miriam Gomez A Primary Care Provider [phone] Jack OWENS, Nelly Unavailable Unavailable Jason LUKE, [...] Facility (15 sources) Enalapril Drug Allergy 12-11-2024 [facility] (15 sources) Pravastatin Drug Allergy 12-11-2024 [facility] (15 sources) rosuvastatin Drug Allergy 12-11-2024 [facility] (1 source) Enalapril Drug Allergy 12-11-2024 [facility] (1 source) Pravastatin Drug Allergy 12-11-2024 [facility] (1 source) rosuvastatin Drug Allergy 12-11-2024 [facility] Medications Current Medications Medication Drug Class(es) [...] (Normalized) Sig (Original) 20 ml albumin human, skilled nursing 250 mg/ml injection (5 sources) Human Serum [...] 01-30-2025 docusate sodium 50 mg / sennosides, skilled nursing 8.6 mg oral tablet (2 sources) Start: [...] at 1303, Anesthesia Intraprocedure polyethylene glycol 3350 [id number] mg powder for oral solution (2 sources) Osmotic Laxative Start: 01-29-2025 End: 02-04-2025 prochlorperazine 5 mg/ml injectable solution (2 sources) Phenothiazine Start: 01-30-2025 End: 02-04-2025 take 5 mg intravenously every eight hours as needed for nausea and vomiting 100 ml propofol 10 mg/ml injection (3 sources) General Anesthetic Start: 01-29-2025 End: 01-30-2025 25 ml protamine sulfate (skilled nursing) 10 mg/ml injection (1 source) Start: 01-29-2025 [...] Coronary arteriosclerosis; Translations: [Atherosclerotic heart disease of [place] coronary artery without angina pectoris] Onset: 01-14-2025 [...] 12-11-2024 12-11-2024 Chronic Other aftercare (2 sources) detention (current) use of insulin; Translations: [detention (current) use of insulin (HCC)] Onset: 01-14-2025 [...] function study,I25.10 - Atherosclerotic heart disease of [place] coronary artery without angina pectoris Results Test Name Value Interpretation Reference Range Facility BASIC METABOLIC PANELon 09-3 Anion gap [Moles/Vol] 9 mmol/L Normal 3-13 [facility] Comment on above: Performed By: #### L AB15, [id number] ####Director Of Home Care Hospice: HIPOLITO WOODS ([phone])[facility])[address] [place] [address] Calcium [Mass/Vol] 9.1 mg/dL Normal 8.8-10.0 [facility] Comment on above: Performed By: #### L AB15, [id number] ####Director Of Home Care Hospice: HIPOLITO WOODS ([phone])[facility] ([facility])[address] [place] [address] Chloride [Moles/Vol] 104 mmol/L Normal 98-107 [facility] Comment on above: Performed By: #### L AB15, [id number] ####Director Of Home Care Hospice: HIPOLITO WOODS ([id number])[facility])[address] [place] [address] CO2 [Moles/Vol] 24 mmol/L Normal 23-31 [facility] Comment on above: Performed By: #### L AB15, [id number] ####Director Of Home Care Hospice: HIPOLITO WOODS ([id number])[facility])[address] [place] [address] Creatinine [Mass/Vol] 1.03 mg/dL Normal 0.72-1.25 [facility] Comment on above: Performed By: #### L AB15, [id number] ####Director Of Home Care Hospice: HIPOLITO [id number])[facility])[address] [place] [address] GLOMERULAR FILTRATION RATE ML/MIN/1.73 SQ M.PREDICTED 78.1 mL/min/1.73m*2 Normal >60.0 [facility] Comment on above: Result Comment: Calc ulation based on the Chronic Kidney Disease Epidemiology Collaboration (CKD-EPI) equation refit without adjustment for race Performed By: #### L AB15, [id number] ####Director Of Home Care Hospice: HIPOLITO WOODS ([phone])[facility])[address] [place] [address] Glucose [Mass/Vol] 182 mg/dL High 82-115 [facility] Comment on above: Performed By: #### L AB15, [id number] ####Director Of Home Care Hospice: HIPOLITO WOODS ([id number])[address] Potassium [Moles/Vol] 3.7 mmol/L Normal 3.5-5.1 [facility] Comment on above: Result Comment: [facility] potassium values may be up to 0.5 mmol/L lower than serum values. Performed By: #### L AB15, [id number] ####Director Of Home Care Hospice: HIPOLITO WOODS ([id number])[facility])[address] [place] [address] [place] Sodium [Moles/Vol] 137 mmol/L Normal 136-145 [facility] Comment on above: Performed By: #### L AB15, [id number] ####Director Of Home Care Hospice: HIPOLITO WOODS ([phone])[facility])[address] [place] [address] [place] Urea nitrogen [Mass/Vol] 22 mg/dL Normal 9-23 [facility] Comment on above: Performed By: #### L AB15, [id number] ####Director Of Home Care Hospice: HIPOLITO WOODS ([id number])[facility])[address] [place] [address] Basic metabolic 1998 panelon 02-04-2025 Anion gap [Moles/Vol] 9 mmol/L 3 - 13 mmol/L [facility] Calcium [Mass/Vol] 9.1 mg/dL 8.8 - 10. 0 mg/dL [facility] Chloride [Moles/Vol] 104 mmol/L 98 - 10 7 mmol/L [facility] CO2 [Moles/Vol] 24 mmol/L 23 - 31 mmol/L [facility] Creatinine [Mass/Vol] 1.03 mg/dL 0.72 - 1.25 mg/dL [facility] GFR/1.73 sq M.predicted (S/P/Bld) [Vol rate/Area] 78.1 mL/min - PINF [facility] Glucose [Mass/Vol] 182 mg/dL High 82 - 115 mg/dL [facility] Interpretation and review of laboratory results Abnormal [facility] Potassium [Moles/Vol] 3.7 mmol/L 3.5 - 5.1 mmol/L [facility] Sodium [Moles/Vol] 137 mmol/L 136 - 145 mmol/L [facility] Urea nitrogen [Mass/Vol] 22 mg/dL 9 - 23 mg/d L [facility] CALCIUM, IONIZEDon CALCIUM IONIZED 4.50 mg/dL Normal 4.30-5.20 [facility] Comment on above: Order Comment: Obtai n PRN and check ionized Ca level if serum Ca level less than 8.0 Performed By: #### L AB54 ####Director Of Home Care Hospice: HIPOLITO WOODS ([phone])[address] PH, IONIZED CALCIUM 7.46 Normal 7.31-7.46 [facility] Comment on above: Order Comment: Obtai n PRN and check ionized Ca level if serum Ca level less than 8.0 Performed By: #### L AB54 ####Director Of Home Care Hospice: HIPOLITO WOODS ([phone])[address] CBC (HEMOGRAM)on 02-04-2025 Erythrocyte distribution width (RBC) [Ratio] 12.8 % Normal 11.5-15.0 [facility] Comment on above: Performed By: #### L AB103, LAB15 #### Director Of Home Care Hospice: HIPOLITO WOODS ([id number]) [facility] [address] [place] [address] Hematocrit (Bld) [Volume fraction] 26.9 % Low 40.0-52.0 [facility] Comment on above: Performed By: #### L AB103, LAB15 #### Director Of Home Care Hospice: HIPOLITO WOODS ([id number]) [facility] ([facility]) [address] [place] [address] Hemoglobin (Bld) [Mass/Vol] 8.9 g/dL Low 13.0-18.0 [facility] Comment on above: Performed By: #### L AB103, LAB15 #### Director Of Home Care Hospice: HIPOLITO WOODS ([id number]) [facility]) [address] [place] [address] MCH (RBC) [Entitic mass] 31.1 pg Normal 26.0-34.0 [facility] Comment on above: Performed By: #### L AB103, LAB15 #### Director Of Home Care Hospice: HIPOLITO WOODS ([id number]) [facility] ([facility]) [address] [place] [address] MCHC 33.1 % Normal 30.5-36.0 [facility] Comment on above: Performed By: #### L AB103, LAB15 #### Director Of Home Care Hospice: HIPOLITO WOODS ([id number]) [facility] ([facility]) [address] [place] [address] MCV (RBC) [Entitic vol] 94.1 fL Normal 77.0-99.0 [facility] Comment on above: Performed By: #### L AB103, LAB15 #### Director Of Home Care Hospice: HIPOLITO WOODS ([id number]) [facility] ([facility]) [address] [place] [address] Platelet mean volume (Bld) [Entitic vol] 10.4 fL Normal 9.0-12.7 [facility] Comment on above: Performed By: #### L AB103, LAB15 #### Director Of Home Care Hospice: HIPOLITO WOODS ([id number]) [facility]) [address] [place] [address] Platelets (Bld) [#/Vol] 285 10*3/uL Normal 140-440 [facility] Comment on above: Performed By: #### L AB103, LAB15 #### Director Of Home Care Hospice: HIPOLITO WOODS ([id number]) [facility] ([facility]) [address] [place] [address] RBC (Bld) [#/Vol] 2.86 10*6/uL Low 4.40-5.90 [facility] Comment on above: Performed By: #### L AB103, LAB15 #### Director Of Home Care Hospice: HIPOLITO WOODS ([id number]) [facility] ([facility]) [address] [place] [address] WBC (Bld) [#/Vol] 6.7 10*3/uL Normal 3.6-10.7 [facility] Comment on above: Performed By: #### L AB103, LAB15 #### Director Of Home Care Hospice: HIPOLITO WOODS ([id number]) [facility] ([facility]) [address] [place] [address] CBC panel Auto (Bld)Ordered By: German Aguilera on 02-04-2025 Erythrocyte distribution width (RBC) [Ratio] 12.8 % 11.5 - 15.0 % [facility] Hematocrit (Bld) [Volume fraction] 26.9 % Low 40.0 - 52.0 % [facility] Hemoglobin (Bld) [Mass/Vol] 8.9 g/dL Low 13.0 - 18.0 g/dL [facility] Interpretation and review of laboratory results Abnormal [facility] MCH (RBC) [Entitic mass] 31.1 pg 26. 0 - 34.0 pg [facility] MCHC (RBC) [Mass/Vol] 33.1 % 30.5 - 36.0 % [facility] MCV (RBC) [Entitic vol] 94.1 fL 77.0 - 99.0 fL [facility] Platelet mean volume (Bld) [Entitic vol] 10.4 fL 9.0 - 12.7 fL [facility] Platelets (Bld) [#/Vol] 285 10*3/uL 140 - 440 10*3/uL [facility] RBC (Bld) [#/Vol] 2.86 10*6/uL Low 4.40 - 5.9 0 10*6/uL [facility] WBC (Bld) [#/Vol] 6.7 10*3/uL 3.6 - 10.7 10*3/uL [facility] Calcium.ionized [Moles/Vol]O rdered By: Beronica Hill on 02-04-2025 Calcium.ionized (Bld) [Moles/Vol] 4.5 mg/dL 4.30 - 5.20 mg/dL [facility] Interpretation and review of laboratory results Normal [facility] PH, IONIZED CALCIUM 7.46 7.31 - 7.46 [facility] - Chemistry and C hemistry - challengeon 02-04-2025 Glucose [Mass/Vol] 208 mg/dL High 70 - 100 mg/dL [facility] Magnesium [Mass/Vol] 1.8 mg/dL 1.6 - 2 .6 mg/dL [facility] MAGNESIUMon 02-04-2025 Magnesium [Mass/Vol] 1.8 mg/dL Normal 1.6-2.6 [facility] Comment on above: Result Comment: TOM Peterson COMMENTS: Higher values can be expected in females during menses. Performed By: #### L AB15, [id number] ####Director Of Home Care Hospice: HIPOLITO WOODS ([id number])[address] Magnesium [Mass/Vol]on 02-04 Interpretation and review of laboratory results Normal [facility] No Panel Informationon 02-04 Interpretation and review of laboratory results Abnormal [facility] Progress Noteon 02-04-2025 Progress Note Department of Internal Medicine Division of Endocrinology, Diabetes, & Metabolism Endocrinology Note Patient Name: Ryan Macedo : 1955 AGE: 69 y.o. Room/Bed: T1-121/T1-121 A Admission Date: 01/29/2025 Visit Date: 02/04/2025 Reason for Endocrine Consult: post heart Provider/Team Requesting Consult: cts PCP: MIRIAM GOMEZ Outpt Workforce Staffing Advisor: No ASSESSMENT: Stress hyperglycemia DM2 with hyperglycemia without residential insulin CABGx3 Htn/hld/cad PLAN: -Blood sugar variable [...] halls CT in place Ate small bfast- singaporean toast No nv noted Spoke with team [...] mcg, Pramod (more content not included)... Normal [facility] XR CHEST 1 VIEWon 02-04-2025 XR CHEST [...] Signed Date/Time: 02/04/2025 7:48 AM EDT Normal [facility] XR Chest Single viewon 02-04 [facility] Radiology Study observation (narrative) [facility] XR Chest Single viewOrdered By: Mark Anthony Frausto on 02-04-2025 [facility] BASIC METABOLIC PANELon 01-07 Anion gap [Moles/Vol] 5 mmol/L Normal 3-13 [facility] Comment on above: Performed By: #### L AB103, LAB15 ####Director Of Home Care Hospice: HIPOLITO WOODS ([id number])[facility] [place] [address] [place] Calcium [Mass/Vol] 7.6 mg/dL Low 8.8-10.0 [facility] Comment on above: Performed By: #### L AB103, LAB15 ####Director Of Home Care Hospice: HIPOLITO WOODS ([id number])[facility] [place] [address] [place] Chloride [Moles/Vol] 111 mmol/L High 98-107 [facility] Comment on above: Performed By: #### L AB103, LAB15 ####Director Of Home Care Hospice: HIPOLITO WOODS ([id number])[facility] ([facility])[address] [place] [address] CO2 [Moles/Vol] 22 mmol/L Low 23-31 [facility] Comment on above: Performed By: #### L AB103, LAB15 ####Director Of Home Care Hospice: HIPOLITO WOODS ([phone])[facility] ([facility])[address] [place] [address] Creatinine [Mass/Vol] 0.86 mg/dL Normal 0.72-1.25 [facility] Comment on above: Performed By: #### L AB103, LAB15 ####Director Of Home Care Hospice: HIPOLITO WOODS ([id number])[facility] ([facility])[address] [place] [address] GLOMERULAR FILTRATION RATE ML/MIN/1.73 SQ M.PREDICTED >90.0 Normal >60.0 [facility] Comment on above: Result Comment: Calc ulation based on the Chronic Kidney Disease Epidemiology Collaboration (CKD-EPI) equation refit without adjustment for race Performed By: #### L AB103, LAB15 ####Director Of Home Care Hospice: HIPOLITO WOODS ([id number])[facility] ([facility])[address] [place] [address] [place] Glucose [Mass/Vol] 200 mg/dL High 82-115 [facility] Comment on above: Performed By: #### L AB103, LAB15 ####Director Of Home Care Hospice: HIPOLITO WOODS ([id number])[facility] [place] [address] Potassium [Moles/Vol] 3.4 mmol/L Low 3.5-5.1 [facility] Comment on above: Result Comment: [facility] potassium values may be up to 0.5 mmol/L lower than serum values. Performed By: #### L AB103, LAB15 ####Director Of Home Care Hospice: HIPOLITO WOODS ([id number])[facility] ([facility])[address] [place] [address] Sodium [Moles/Vol] 138 mmol/L Normal 136-145 [facility] Comment on above: Performed By: #### L AB103, LAB15 ####Director Of Home Care Hospice: HIPOLITO WOODS ([id number])[facility] ([facility])[address] [place] [address] Urea nitrogen [Mass/Vol] 24 mg/dL High 9-23 [facility] Comment on above: Performed By: #### L AB103, LAB15 ####Director Of Home Care Hospice: HIPOLITO WOODS ([id number])[facility] [place] [address] Basic metabolic 1998 panelon 02-03-2025 Anion gap [Moles/Vol] 5 mmol/L 3 - 13 mmol/L [facility] Calcium [Mass/Vol] 7.6 mg/dL Low 8.8 - 10. 0 mg/dL [facility] Chloride [Moles/Vol] 111 mmol/L High 98 - 10 7 mmol/L [facility] CO2 [Moles/Vol] 22 mmol/L Low 23 - 31 mmol/L [facility] Creatinine [Mass/Vol] 0.86 mg/dL 0.72 - 1.25 mg/dL [facility] GFR/1.73 sq M.predicted (S/P/Bld) [Vol rate/Area] - PINF [facility] Glucose [Mass/Vol] 200 mg/dL High 82 - 115 mg/dL [facility] Interpretation and review of laboratory results Abnormal [facility] Potassium [Moles/Vol] 3.4 mmol/L Low 3.5 - 5.1 mmol/L [facility] Sodium [Moles/Vol] 138 mmol/L 136 - 145 mmol/L [facility] Urea nitrogen [Mass/Vol] 24 mg/dL High 9 - 23 mg/d L [facility] CBC (HEMOGRAM)on 02-03-2025 Erythrocyte distribution width (RBC) [Ratio] 12.7 % Normal 11.5-15.0 [facility] Comment on above: Performed By: #### L AB294 ####Director Of Home Care Hospice: HIPOLITO WOODS ([phone])[facility])[address] [place] [address] Hematocrit (Bld) [Volume fraction] 23.0 % Low 40.0-52.0 [facility] Comment on above: Performed By: #### L AB294 ####Director Of Home Care Hospice: HIPOLITO WOODS ([id number])[address] Hemoglobin (Bld) [Mass/Vol] 7.5 g/dL Low 13.0-18.0 [facility] Comment on above: Performed By: #### L AB294 ####Director Of Home Care Hospice: HIPOLITO WOODS ([id number])[address] MCH (RBC) [Entitic mass] 31.0 pg Normal 26.0-34.0 [facility] Comment on above: Performed By: #### L AB294 ####Director Of Home Care Hospice: HIPOLITO WOODS ([phone])[address] MCHC 32.6 % Normal 30.5-36.0 [facility] Comment on above: Performed By: #### L AB294 ####Director Of Home Care Hospice: HIPOLITO WOODS ([id number])[address] MCV (RBC) [Entitic vol] 95.0 fL Normal 77.0-99.0 [facility] Comment on above: Performed By: #### L AB294 ####Director Of Home Care Hospice: HIPOLITO [id number])[facility] [address] Platelet mean volume (Bld) [Entitic vol] 10.6 fL Normal 9.0-12.7 [facility] Comment on above: Performed By: #### L AB294 ####Director Of Home Care Hospice: HIPOLITO WOODS ([id number])[facility] ([facility])[address] [place] [address] Platelets (Bld) [#/Vol] 213 10*3/uL Normal 140-440 [facility] Comment on above: Performed By: #### L AB294 ####Director Of Home Care Hospice: HIPOLITO WOODS ([id number])[facility] ([facility])[address] [place] [address] RBC (Bld) [#/Vol] 2.42 10*6/uL Low 4.40-5.90 [facility] Comment on above: Performed By: #### L AB294 ####Director Of Home Care Hospice: HIPOLITO WOODS ([id number])[facility] ([facility])[address] [place] [address] WBC (Bld) [#/Vol] 5.7 10*3/uL Normal 3.6-10.7 [facility] Comment on above: Performed By: #### L AB294 ####Director Of Home Care Hospice: HIPOLITO WOODS ([id number])[facility] ([facility])[address] [place] [address] CBC panel Auto (Bld)on 02-03 Erythrocyte distribution width (RBC) [Ratio] 12.7 % 11.5 - 15.0 % [facility] Hematocrit (Bld) [Volume fraction] 23 % Low 40.0 - 52.0 % [facility] Hemoglobin (Bld) [Mass/Vol] 7.5 g/dL Low 13.0 - 18.0 g/dL [facility] Interpretation and review of laboratory results Abnormal [facility] MCH (RBC) [Entitic mass] 31 pg 26. 0 - 34.0 pg [facility] MCHC (RBC) [Mass/Vol] 32.6 % 30.5 - 36.0 % [facility] MCV (RBC) [Entitic vol] 95 fL 77.0 - 99.0 fL [facility] Platelet mean volume (Bld) [Entitic vol] 10.6 fL 9.0 - 12.7 fL [facility] Platelets (Bld) [#/Vol] 213 10*3/uL 140 - 440 10*3/uL [facility] RBC (Bld) [#/Vol] 2.42 10*6/uL Low 4.40 - 5.9 0 10*6/uL [facility] WBC (Bld) [#/Vol] 5.7 10*3/uL 3.6 - 10.7 10*3/uL [facility] Laboratory - Chemistry and C hemistry - challengeon 02-03-2025 Glucose [Mass/Vol] 187 mg/dL High 70 - 100 mg/dL [facility] Glucose [Mass/Vol] 290 mg/dL High 70 - 100 mg/dL [facility] Glucose [Mass/Vol] 220 mg/dL High 70 - 100 mg/dL [facility] Magnesium [Mass/Vol] 1.6 mg/dL 1.6 - 2 .6 mg/dL [facility] MAGNESIUMon 02-03-2025 Magnesium [Mass/Vol] 1.6 mg/dL Normal 1.6-2.6 [facility] Comment on above: Result Comment: TOM Peterson COMMENTS: Higher values can be expected in females during menses. Performed By: #### L AB103, LAB15 ####Director Of Home Care Hospice: HIPOLITO WOODS ([id number])[facility] ([address] Magnesium [Mass/Vol]on 02-03 Interpretation and review of laboratory results Normal [facility] No Panel Informationon 02-03 Interpretation and review of laboratory results Abnormal [facility] Interpretation and review of laboratory results Abnormal [facility] Interpretation and review of laboratory results Abnormal [facility] Nursing Noteon 02-03-2025 Nursing Note Wound Care consulted for Pressure Injury Prevention. Pt's Marcin= 20, pt is no longer at risk at this time. Skin Care Precaution order set in place. Dietitian consult in place. PT/OT consults in place. Will continue to follow peripherally. Please vocera or secure chat message with any questions. Tatiana ISLASN, RN [facility] Progress Noteon 02-03-2025 Progress Note OCCUPATIONAL THERAPY [facility] Name/MRN: Ryan Macedo ([id number]) Date: 02/03/2025 Pt is alert and oriented to where they can understand that therapy was being offered to them. Evaluation was offered and patient refused. The reason stated by patient for refusal was due to feeling tired/fatigued. The therapist explained the proposed treatment, the expected benefits and outcome of the treatment and possible medical consequences/risks of refusal. Fam Dorsey OT [facility] Progress Note PHYSICAL THERAPY [facility] Treatment Note Name/MRN: Ryan Macedo ([id number]) Date of : 1955 Age: 69 y.o. [...] Code Treatment Minutes: (gt) Miguelina Ortiz PTA [facility] Progress Note - Attestation signed by Martell Mora MD at 02/03/2025 1:47 PM I have personally performed a face to face diagnostic evaluation on this patient. In addition, I have reviewed the resident's/HEALTHCARE SCIENCE SPECIALIST/HOSPITALIST NOCTURNIST PHYSICIAN's care plan and agree with those findings [...] imaging are reviewed as detailed in the resident's/HEALTHCARE SCIENCE SPECIALIST/HOSPITALIST NOCTURNIST PHYSICIAN's note Department of Internal Medicine Division of Endocrinology, Diabetes, & Metabolism Endocrinology Note Patient Name: Ryan Macedo : 1955 AGE: 69 y.o. Room/Bed: T1-121/T1-121 A Admission Date: 01/29/2025 Visit Date: 02/03/2025 Reason for Endocrine Consult: post heart Provider/Team Requesting Consult: cts PCP: MIRIAM GOMEZ Outpt Workforce Staffing Advisor: No ASSESSMENT: Stress hyperglycemia DM2 with hyperglycemia without sales order coordinator insulin CABGx3 Htn/hld/cad PLAN: -Blood sugar elevated [...] halls CT in place Ate small bfast- singaporean toast No nv noted Spoke with team [...] A1c/glucose data): (more content not included)... Normal [facility] Progress Note Chest tubes assessed , no air leak. Chest tube removed without issues. Discussed with nursing and patient. Angela Mandel, ASSOCIATE TRAINER - [employer] 02/03/25 Normal [facility] [facility] XR CHEST 1 VIEWon 02-03-2025 XR CHEST [...] Signed Date/Time: 02/03/2025 5:58 AM EDT [facility] Chest Single viewon 02-03 [facility] Radiology Study observation (narrative) [facility] BASIC METABOLIC PANELon 01-07 Anion gap [Moles/Vol] 12 mmol/L Normal 3-13 [facility] Comment on above: Performed By: #### L AB103, LAB15 #### Director Of Home Care Hospice: HIPOLITO WOODS ([phone]) [facility] [address] [place] [address] Calcium [Mass/Vol] 8.9 mg/dL Normal 8.8-10.0 [facility] Comment on above: Performed By: #### L AB103, LAB15 #### Director Of Home Care Hospice: HIPOLITO WOODS ([phone]) [facility] [address] [place] [address] Chloride [Moles/Vol] 103 mmol/L Normal 98-107 [facility] Comment on above: Performed By: #### L AB103, LAB15 #### Director Of Home Care Hospice: HIPOLITO WOODS ([phone]) [facility] [address] [place] [address] CO2 [Moles/Vol] 21 mmol/L Low 23-31 [facility] Comment on above: Performed By: #### L AB103, LAB15 #### Director Of Home Care Hospice: HIPOLITO WOODS ([phone]) [facility] [address] [place] [address] Creatinine [Mass/Vol] 1.10 mg/dL Normal 0.72-1.25 [facility] Comment on above: Performed By: #### L AB103, LAB15 #### Director Of Home Care Hospice: HIPOLITO WOODS ([phone]) [facility] [address] [place] [address] GLOMERULAR FILTRATION RATE ML/MIN/1.73 SQ M.PREDICTED 72.2 mL/min/1.73m*2 Normal >60.0 [facility] Comment on above: Result Comment: Calc ulation based on the Chronic Kidney Disease Epidemiology Collaboration (CKD-EPI) equation refit without adjustment for race Performed By: #### L AB103, LAB15 #### Director Of Home Care Hospice: HIPOLITO WOODS ([phone]) [facility] [address] [place] [address] [place] Glucose [Mass/Vol] 336 mg/dL High 82-115 [facility] Comment on above: Performed By: #### L AB103, LAB15 #### Director Of Home Care Hospice: HIPOLITO WOODS ([phone]) [facility] ([facility]) [address] [place] [address] Potassium [Moles/Vol] 3.7 mmol/L Normal 3.5-5.1 [facility] Comment on above: Result Comment: [facility] potassium values may be up to 0.5 mmol/L lower than serum values. Performed By: #### L AB103, LAB15 #### Director Of Home Care Hospice: HIPOLITO WOODS ([phone]) [facility] ([facility]) [address] [place] [address] Sodium [Moles/Vol] 136 mmol/L Normal 136-145 [facility] Comment on above: Performed By: #### L AB103, LAB15 #### Director Of Home Care Hospice: HIPOLITO WOODS ([phone]) [facility] [address] [place] [address] [place] Urea nitrogen [Mass/Vol] 25 mg/dL High 9-23 [facility] Comment on above: Performed By: #### L AB103, LAB15 #### Director Of Home Care Hospice: HIPOLITO WOODS ([phone]) [facility] [address] [place] [address] Anion gap [Moles/Vol] 7 mmol/L Normal 3-13 [facility] Comment on above: Performed By: #### L AB103, LAB15 #### Director Of Home Care Hospice: HIPOLITO WOODS ([phone]) [facility] [address] [place] [address] [place] Calcium [Mass/Vol] 7.8 mg/dL Low 8.8-10.0 [facility] Comment on above: Performed By: #### L AB103, LAB15 #### Director Of Home Care Hospice: HIPOLITO WOODS ([phone]) [facility] ([facility]) [address] [place] [address] [place] Chloride [Moles/Vol] 109 mmol/L High 98-107 [facility] Comment on above: Performed By: #### L AB103, LAB15 #### Director Of Home Care Hospice: HIPOLITO WOODS ([phone]) [facility]) [address] [place] [address] CO2 [Moles/Vol] 22 mmol/L Low 23-31 [facility] Comment on above: Performed By: #### L AB103, LAB15 #### Director Of Home Care Hospice: HIPOLITO WOODS ([phone]) [facility] ([facility]) [address] [place] [address] Creatinine [Mass/Vol] 0.95 mg/dL Normal 0.72-1.25 [facility] Comment on above: Performed By: #### L AB103, LAB15 #### Director Of Home Care Hospice: HIPOLITO WOODS ([phone]) [facility] ([facility]) [address] [place] [address] [place] GLOMERULAR FILTRATION RATE ML/MIN/1.73 SQ M.PREDICTED 86.1 mL/min/1.73m*2 Normal >60.0 [facility] Comment on above: Result Comment: Calc ulation based on the Chronic Kidney Disease Epidemiology Collaboration (CKD-EPI) equation refit without adjustment for race Performed By: #### L AB103, LAB15 #### Director Of Home Care Hospice: HIPOLITO WOODS ([phone]) [facility] ([facility]) [address] [place] [address] [place] Glucose [Mass/Vol] 194 mg/dL High 82-115 [facility] Comment on above: Performed By: #### L AB103, LAB15 #### Director Of Home Care Hospice: HIPOLITO WOODS ([phone]) [facility]) [address] [place] [address] [place] Potassium [Moles/Vol] 3.3 mmol/L Low 3.5-5.1 [facility] Comment on above: Result Comment: [facility] potassium values may be up to 0.5 mmol/L lower than serum values. Performed By: #### L AB103, LAB15 #### Director Of Home Care Hospice: HIPOLITO WOODS ([phone]) [facility] [address] [place] [address] Sodium [Moles/Vol] 138 mmol/L Normal 136-145 [facility] Comment on above: Performed By: #### L AB103, LAB15 #### Director Of Home Care Hospice: HIPOLITO WOODS ([phone]) [facility] [address] [place] [address] Urea nitrogen [Mass/Vol] 24 mg/dL High 9-23 [facility] Comment on above: Performed By: #### L AB103, LAB15 #### Director Of Home Care Hospice: HIPOLITO WOODS ([phone]) [facility] [address] [place] [address] Basic metabolic 1998 panelon 02-02-2025 Anion gap [Moles/Vol] 12 mmol/L 3 - 13 mmol/L [facility] Calcium [Mass/Vol] 8.9 mg/dL 8.8 - 10. 0 mg/dL [facility] Chloride [Moles/Vol] 103 mmol/L 98 - 10 7 mmol/L [facility] CO2 [Moles/Vol] 21 mmol/L Low 23 - 31 mmol/L [facility] Creatinine [Mass/Vol] 1.1 mg/dL 0.72 - 1.25 mg/dL [facility] GFR/1.73 sq M.predicted (S/P/Bld) [Vol rate/Area] 72.2 mL/min - PINF [facility] Glucose [Mass/Vol] 336 mg/dL High 82 - 115 mg/dL [facility] Interpretation and review of laboratory results Abnormal [facility] Potassium [Moles/Vol] 3.7 mmol/L 3.5 - 5.1 mmol/L [facility] Sodium [Moles/Vol] 136 mmol/L 136 - 145 mmol/L [facility] Urea nitrogen [Mass/Vol] 25 mg/dL High 9 - 23 mg/d L [facility] Anion gap [Moles/Vol] 7 mmol/L 3 - 13 mmol/L [facility] Calcium [Mass/Vol] 7.8 mg/dL Low 8.8 - 10. 0 mg/dL [facility] Chloride [Moles/Vol] 109 mmol/L High 98 - 10 7 mmol/L [facility] CO2 [Moles/Vol] 22 mmol/L Low 23 - 31 mmol/L [facility] Creatinine [Mass/Vol] 0.95 mg/dL 0.72 - 1.25 mg/dL [facility] GFR/1.73 sq M.predicted (S/P/Bld) [Vol rate/Area] 86.1 mL/min - PINF [facility] Glucose [Mass/Vol] 194 mg/dL High 82 - 115 mg/dL [facility] Interpretation and review of laboratory results Abnormal [facility] Potassium [Moles/Vol] 3.3 mmol/L Low 3.5 - 5.1 mmol/L [facility] Sodium [Moles/Vol] 138 mmol/L 136 - 145 mmol/L [facility] Urea nitrogen [Mass/Vol] 24 mg/dL High 9 - 23 mg/d L [facility] CALCIUM, IONIZEDon CALCIUM IONIZED 4.40 mg/dL Normal 4.30-5.20 [facility] Comment on above: Order Comment: Obtai n PRN and check ionized Ca level if serum Ca level less than 8.0 Performed By: #### L AB54 ####Director Of Home Care Hospice: HIPOLITO WOODS ([phone])[address] PH, IONIZED CALCIUM 7.48 High 7.31-7.46 [facility] Comment on above: Order Comment: Obtai n PRN and check ionized Ca level if serum Ca level less than 8.0 Performed By: #### L AB54 ####Director Of Home Care Hospice: HIPOLITO WOODS ([phone])[facility] ([facility])[address] [place] [address] CBC (HEMOGRAM)on 02-02-2025 Erythrocyte distribution width (RBC) [Ratio] 12.8 % Normal 11.5-15.0 [facility] Comment on above: Performed By: #### L AB294 ####Director Of Home Care Hospice: HIPOLITO WOODS ([phone])[facility] ([facility])[address] [place] [address] Hematocrit (Bld) [Volume fraction] 28.1 % Low 40.0-52.0 [facility] Comment on above: Performed By: #### L AB294 ####Director Of Home Care Hospice: HIPOLITO WOODS ([phone])[facility] ([facility])[address] [place] [address] Hemoglobin (Bld) [Mass/Vol] 9.4 g/dL Low 13.0-18.0 [facility] Comment on above: Performed By: #### L AB294 ####Director Of Home Care Hospice: HIPOLITO WOODS ([phone])[facility] ([facility])[address] [place] [address] MCH (RBC) [Entitic mass] 31.3 pg Normal 26.0-34.0 [facility] Comment on above: Performed By: #### L AB294 ####Director Of Home Care Hospice: HIPOLITO WOODS ([phone])[facility])[address] [place] [address] MCHC 33.5 % Normal 30.5-36.0 [facility] Comment on above: Performed By: #### L AB294 ####Director Of Home Care Hospice: HIPOLITO WOODS ([phone])[facility] ([facility])[address] [place] [address] MCV (RBC) [Entitic vol] 93.7 fL Normal 77.0-99.0 S [facility] Comment on above: Performed By: #### L AB294 ####Director Of Home Care Hospice: HIPOLITO WOODS ([phone])[facility] ([facility])[address] [place] [address] Platelet mean volume (Bld) [Entitic vol] 11.6 fL Normal 9.0-12.7 [facility] Comment on above: Performed By: #### L AB294 ####Director Of Home Care Hospice: HIPOLITO WOODS ([phone])[facility])[address] [place] [address] Platelets (Bld) [#/Vol] 231 10*3/uL Normal 140-440 [facility] Comment on above: Performed By: #### L AB294 ####Director Of Home Care Hospice: HIPOLITO WOODS ([phone])[facility])[address] [place] [address] RBC (Bld) [#/Vol] 3.00 10*6/uL Low 4.40-5.90 [facility] Comment on above: Performed By: #### L AB294 ####Director Of Home Care Hospice: HIPOLITO WOODS ([phone])[facility])[address] [place] [address] WBC (Bld) [#/Vol] 7.3 10*3/uL Normal 3.6-10.7 [facility] Comment on above: Performed By: #### L AB294 ####Director Of Home Care Hospice: HIPOLITO WOODS ([phone])[facility])[address] [place] [address] Erythrocyte distribution width (RBC) [Ratio] 12.7 % Normal 11.5-15.0 [facility] Comment on above: Performed By: #### L AB294 ####Director Of Home Care Hospice: HIPOLITO WOODS ([phone])[facility])[address] [place] [address] Hematocrit (Bld) [Volume fraction] 21.4 % Low 40.0-52.0 [facility] Comment on above: Performed By: #### L AB294 ####Director Of Home Care Hospice: HIPOLITO WOODS ([phone])[address] Hemoglobin (Bld) [Mass/Vol] 7.0 g/dL Low 13.0-18.0 [facility] Comment on above: Performed By: #### L AB294 ####Director Of Home Care Hospice: HIPOLITO WOODS ([phone])[facility])[address] [place] [address] MCH (RBC) [Entitic mass] 31.0 pg Normal 26.0-34.0 [facility] Comment on above: Performed By: #### L AB294 ####Director Of Home Care Hospice: HIPOLITO WOODS ([phone])[facility])[address] [place] [address] MCHC 32.7 % Normal 30.5-36.0 [facility] Comment on above: Performed By: #### L AB294 ####Director Of Home Care Hospice: HIPOLITO WOODS ([phone])[facility] ([facility])[address] [place] [address] MCV (RBC) [Entitic vol] 94.7 fL Normal 77.0-99.0 S [facility] Comment on above: Performed By: #### L AB294 ####Director Of Home Care Hospice: HIPOLITO WOODS ([phone])[facility])[address] [place] [address] Platelet mean volume (Bld) [Entitic vol] 11.8 fL Normal 9.0-12.7 [facility] Comment on above: Performed By: #### L AB294 ####Director Of Home Care Hospice: HIPOLITO WOODS ([phone])[facility] ([facility])[address] [place] [address] Platelets (Bld) [#/Vol] 150 10*3/uL Normal 140-440 [facility] Comment on above: Performed By: #### L AB294 ####Director Of Home Care Hospice: HIPOLITO WOODS ([phone])[facility] ([facility])[address] [place] [address] RBC (Bld) [#/Vol] 2.26 10*6/uL Low 4.40-5.90 [facility] Comment on above: Performed By: #### L AB294 ####Director Of Home Care Hospice: HIPOLITO WOODS ([phone])[facility] ([facility])[address] [place] [address] WBC (Bld) [#/Vol] 5.2 10*3/uL Normal 3.6-10.7 [facility] Comment on above: Performed By: #### L AB294 ####Director Of Home Care Hospice: HIPOLITO WOODS ([phone])[facility])[address] [place] [address] CBC panel Auto (Bld)Ordered By: Liat Diego on 02-02-2025 Erythrocyte distribution width (RBC) [Ratio] 12.8 % 11.5 - 15.0 % [facility] Hematocrit (Bld) [Volume fraction] 28.1 % Low 40.0 - 52.0 % [facility] Hemoglobin (Bld) [Mass/Vol] 9.4 g/dL Low 13.0 - 18.0 g/dL [facility] Interpretation and review of laboratory results Abnormal [facility] MCH (RBC) [Entitic mass] 31.3 pg 26. 0 - 34.0 pg [facility] MCHC (RBC) [Mass/Vol] 33.5 % 30.5 - 36.0 % [facility] MCV (RBC) [Entitic vol] 93.7 fL 77.0 - 99.0 fL [facility] Platelet mean volume (Bld) [Entitic vol] 11.6 fL 9.0 - 12.7 fL [facility] Platelets (Bld) [#/Vol] 231 10*3/uL 140 - 440 10*3/uL [facility] RBC (Bld) [#/Vol] 3 10*6/uL Low 4.40 - 5.9 0 10*6/uL [facility] WBC (Bld) [#/Vol] 7.3 10*3/uL 3.6 - 10.7 10*3/uL [facility] CBC panel Auto (Bld)on 02-02 Erythrocyte distribution width (RBC) [Ratio] 12.7 % 11.5 - 15.0 % [facility] Hematocrit (Bld) [Volume fraction] 21.4 % Low 40.0 - 52.0 % [facility] Hemoglobin (Bld) [Mass/Vol] 7 g/dL Low 13.0 - 18.0 g/dL [facility] Interpretation and review of laboratory results Abnormal [facility] MCH (RBC) [Entitic mass] 31 pg 26. 0 - 34.0 pg [facility] MCHC (RBC) [Mass/Vol] 32.7 % 30.5 - 36.0 % [facility] MCV (RBC) [Entitic vol] 94.7 fL 77.0 - 99.0 fL [facility] Platelet mean volume (Bld) [Entitic vol] 11.8 fL 9.0 - 12.7 fL [facility] Platelets (Bld) [#/Vol] 150 10*3/uL 140 - 440 10*3/uL [facility] RBC (Bld) [#/Vol] 2.26 10*6/uL Low 4.40 - 5.9 0 10*6/uL [facility] WBC (Bld) [#/Vol] 5.2 10*3/uL 3.6 - 10.7 10*3/uL [facility] Calcium.ionized [Moles/Vol]O rdered By: Liat Bueno on 02-02-2025 Calcium.ionized (Bld) [Moles/Vol] 4.4 mg/dL 4.30 - 5.20 mg/dL [facility] Interpretation and review of laboratory results Abnormal [facility] PH, IONIZED CALCIUM 7.48 High 7.31 - 7.46 [facility] - Chemistry and C hemistry - challengeon 02-02-2025 Glucose [Mass/Vol] 240 mg/dL High 70 - 100 mg/dL [facility] Glucose [Mass/Vol] 289 mg/dL High 70 - 100 mg/dL [facility] Glucose [Mass/Vol] 200 mg/dL High 70 - 100 mg/dL [facility] Magnesium [Mass/Vol] 1.8 mg/dL 1.6 - 2 .6 mg/dL [facility] MAGNESIUMon 02-02-2025 Magnesium [Mass/Vol] 1.8 mg/dL Normal 1.6-2.6 [facility] Comment on above: Result Comment: TOM Peterson COMMENTS: Higher values can be expected in females during menses. Performed By: #### L AB103, LAB15 #### Director Of Home Care Hospice: HIPOLITO WOODS ([phone]) [facility] [address] [place] [address] Magnesium [Mass/Vol]on 02-02 Interpretation and review of laboratory results Normal [facility] No Panel Informationon 02-02 Interpretation and review of laboratory results Abnormal [facility] Interpretation and review of laboratory results Abnormal [facility] Interpretation and review of laboratory results Abnormal [facility] Blood Expiration Date [id number] S [facility] Crossmatch interpretation COMP [facility] Dispense Status Released from [employer] [facility] Product Blood Type 5100 [facility] PRODUCT CODE [id number] [facility] ABO O [facility] Number [id number] [facility] Unit Number [id number] [facility] RH Positive [facility] Volume 300 mL [facility] Progress Noteon 02-02-2025 Progress Note PHYSICAL THERAPY [facility] Treatment Note Name/MRN: Ryan Macedo ([id number]) Date of : 1955 Age: 69 y.o. [...] 23 Minutes (Gt, TP) Shavon Jones PTA [facility] Progress Note Department of Internal Medicine Division of Endocrinology, Diabetes, & Metabolism Endocrinology Note Patient Name: Ryan Macedo : 1955 AGE: 69 y.o. Room/Bed: T1-121/T1-121 A Admission Date: 01/29/2025 Visit Date: 02/02/2025 Reason for Endocrine Consult: post heart Provider/Team Requesting Consult: cts PCP: MIRIAM GOMEZ Outpt Workforce Staffing Advisor: No ASSESSMENT: Stress hyperglycemia DM2 with hyperglycemia without sales order coordinator insulin CABGx3 Htn/hld/cad PLAN: -Increase lantus 17 [...] halls CT in place Ate small bfast- singaporean toast No nv noted Spoke with team [...] each nost (more content not included)... Normal [facility] XR CHEST 1 VIEWon 02-02-2025 XR CHEST [...] Signed Date/Time: 02/02/2025 8:18 AM EDT Normal [facility] XR Chest Single viewon 02-02 [facility] RADIOLOGY SYSTEM [facility] RADIOLOGY [facility] Radiology Study observation (narrative) [facility] XR Chest Single viewOrdered By: Edmundo Xiao on 02-02-2025 [facility] Work Phone: BASIC METABOLIC PANELon 01-07 Anion gap [Moles/Vol] 9 mmol/L Normal 3-13 [facility] Comment on above: Performed By: #### L AB15 ####Director Of Home Care Hospice: HIPOLITO WOODS ([phone])[facility] ([facility])[address] [place] [address] Calcium [Mass/Vol] 9.0 mg/dL Normal 8.8-10.0 [facility] Comment on above: Performed By: #### L AB15 ####Director Of Home Care Hospice: HIPOLITO WOODS ([phone])[facility] [place] [address] Chloride [Moles/Vol] 102 mmol/L Normal 98-107 [facility] Comment on above: Performed By: #### L AB15 ####Director Of Home Care Hospice: HIPOLITO WOODS ([phone])[facility] [place] [address] CO2 [Moles/Vol] 24 mmol/L Normal 23-31 [facility] Comment on above: Performed By: #### L AB15 ####Director Of Home Care Hospice: HIPOLITO WOODS ([phone])[facility] ([facility])[address] [place] [address] Creatinine [Mass/Vol] 1.06 mg/dL Normal 0.72-1.25 [facility] Comment on above: Performed By: #### L AB15 ####Director Of Home Care Hospice: HIPOLITO WOODS ([phone])[facility] ([facility])[address] [place] [address] [place] GLOMERULAR FILTRATION RATE ML/MIN/1.73 SQ M.PREDICTED 75.5 mL/min/1.73m*2 Normal >60.0 [facility] Comment on above: Result Comment: Calc ulation based on the Chronic Kidney Disease Epidemiology Collaboration (CKD-EPI) equation refit without adjustment for race Performed By: #### L AB15 ####Director Of Home Care Hospice: HIPOLITO WOODS ([phone])[facility] [place] [address] [place] Glucose [Mass/Vol] 189 mg/dL High 82-115 [facility] Comment on above: Performed By: #### L AB15 ####Director Of Home Care Hospice: HIPOLITO WOODS ([phone])[facility])[address] [place] [address] Potassium [Moles/Vol] 3.7 mmol/L Normal 3.5-5.1 [facility] Comment on above: Result Comment: [facility] potassium values may be up to 0.5 mmol/L lower than serum values. Performed By: #### L AB15 ####Director Of Home Care Hospice: HIPOLITO WOODS ([phone])[facility] [place] [address] Sodium [Moles/Vol] 135 mmol/L Low 136-145 [facility] Comment on above: Performed By: #### L AB15 ####Director Of Home Care Hospice: HIPOLITO WOODS ([phone])[facility] [place] [address] Urea nitrogen [Mass/Vol] 21 mg/dL Normal 9-23 [facility] Comment on above: Performed By: #### L AB15 ####Director Of Home Care Hospice: HIPOLITO WOODS ([phone])[facility] [place] [address] Anion gap [Moles/Vol] 6 mmol/L Normal 3-13 [facility] Comment on above: Performed By: #### L AB103, LAB15 #### Director Of Home Care Hospice: HIPOLITO WOODS ([phone]) [facility] [address] [place] [address] [place] Calcium [Mass/Vol] 7.2 mg/dL Low 8.8-10.0 [facility] Comment on above: Performed By: #### L AB103, LAB15 #### Director Of Home Care Hospice: HIPOLITO WOODS ([phone]) [facility] [address] [place] [address] [place] Chloride [Moles/Vol] 111 mmol/L High 98-107 [facility] Comment on above: Performed By: #### L AB103, LAB15 #### Director Of Home Care Hospice: HIPOLITO WOODS ([phone]) [facility]) [address] [place] [address] [place] CO2 [Moles/Vol] 20 mmol/L Low 23-31 [facility] Comment on above: Performed By: #### L AB103, LAB15 #### Director Of Home Care Hospice: HIPOLITO WOODS ([phone]) [facility] [address] [place] [address] Creatinine [Mass/Vol] 0.82 mg/dL Normal 0.72-1.25 [facility] Comment on above: Performed By: #### L AB103, LAB15 #### Director Of Home Care Hospice: HIPOLITO WOODS ([phone]) [facility] [facility] [address] [place] [address] GLOMERULAR FILTRATION RATE ML/MIN/1.73 SQ M.PREDICTED >90.0 Normal >60.0 [facility] Comment on above: Result Comment: Calc ulation based on the Chronic Kidney Disease Epidemiology Collaboration (CKD-EPI) equation refit without adjustment for race Performed By: #### L AB103, [id number] #### Director Of Home Care Hospice: HIPOLITO WOODS ([phone]) [facility] ([facility]) [address] [place] [address] [place] Glucose [Mass/Vol] 190 mg/dL High 82-115 [facility] Comment on above: Performed By: #### L AB103, [id number] #### Director Of Home Care Hospice: HIPOLITO WOODS ([phone]) [facility] ([facility]) [address] [place] [address] Potassium [Moles/Vol] 3.0 mmol/L Low 3.5-5.1 [facility] Comment on above: Result Comment: [facility] potassium values may be up to 0.5 mmol/L lower than serum values. Performed By: #### L AB103, [id number] #### Director Of Home Care Hospice: HIPOLITO WOODS ([phone]) [facility] [address] [place] [address] Sodium [Moles/Vol] 137 mmol/L Normal 136-145 [facility] Comment on above: Performed By: #### L AB103, [id number] #### Director Of Home Care Hospice: HIPOLITO WOODS ([phone]) [facility] ([facility]) [address] [place] [address] Urea nitrogen [Mass/Vol] 18 mg/dL Normal 9-23 [facility] Comment on above: Performed By: #### L AB103, [id number] #### Director Of Home Care Hospice: HIPOLITO WOODS ([phone]) [facility] [address] [place] [address] Basic metabolic 1998 panelon 02-01-2025 Anion gap [Moles/Vol] 9 mmol/L 3 - 13 mmol/L [facility] Calcium [Mass/Vol] 9 mg/dL 8.8 - 10. 0 mg/dL [facility] Chloride [Moles/Vol] 102 mmol/L 98 - 10 7 mmol/L [facility] CO2 [Moles/Vol] 24 mmol/L 23 - 31 mmol/L [facility] Creatinine [Mass/Vol] 1.06 mg/dL 0.72 - 1.25 mg/dL [facility] GFR/1.73 sq M.predicted (S/P/Bld) [Vol rate/Area] 75.5 mL/min - PINF [facility] Glucose [Mass/Vol] 189 mg/dL High 82 - 115 mg/dL [facility] Interpretation and review of laboratory results Abnormal [facility] Potassium [Moles/Vol] 3.7 mmol/L 3.5 - 5.1 mmol/L [facility] Sodium [Moles/Vol] 135 mmol/L Low 136 - 145 mmol/L [facility] Urea nitrogen [Mass/Vol] 21 mg/dL 9 - 23 mg/d L [facility] Anion gap [Moles/Vol] 6 mmol/L 3 - 13 mmol/L [facility] Calcium [Mass/Vol] 7.2 mg/dL Low 8.8 - 10. 0 mg/dL [facility] Chloride [Moles/Vol] 111 mmol/L High 98 - 10 7 mmol/L [facility] CO2 [Moles/Vol] 20 mmol/L Low 23 - 31 mmol/L [facility] Creatinine [Mass/Vol] 0.82 mg/dL 0.72 - 1.25 mg/dL [facility] GFR/1.73 sq M.predicted (S/P/Bld) [Vol rate/Area] - PINF [facility] Glucose [Mass/Vol] 190 mg/dL High 82 - 115 mg/dL [facility] Potassium [Moles/Vol] 3 mmol/L Low 3.5 - 5.1 mmol/L [facility] Sodium [Moles/Vol] 137 mmol/L 136 - 145 mmol/L [facility] Urea nitrogen [Mass/Vol] 18 mg/dL 9 - 23 mg/d L [facility] CALCIUM, IONIZEDon CALCIUM IONIZED 4.60 mg/dL Normal 4.30-5.20 [facility] Comment on above: Performed By: #### L [id number] ####Director Of Home Care Hospice: HIPOLITO WOODS ([phone])[facility])[address] [place] [address] PH, IONIZED CALCIUM 7.43 Normal 7.31-7.46 [facility] Comment on above: Performed By: #### L AB54 ####Director Of Home Care Hospice: HIPOLITO WOODS ([phone])[facility])[address] [place] [address] CBC (HEMOGRAM)on 02-01-2025 Erythrocyte distribution width (RBC) [Ratio] 12.9 % Normal 11.5-15.0 [facility] Comment on above: Performed By: #### L [id number], [id number] #### Director Of Home Care Hospice: HIPOLITO WOODS ([phone]) [facility]) [address] [place] [address] Hematocrit (Bld) [Volume fraction] 25.2 % Low 40.0-52.0 [facility] Comment on above: Performed By: #### L AB103, [id number] #### Director Of Home Care Hospice: HIPOLITO [phone]) [facility]) [address] [place] [address] Hemoglobin (Bld) [Mass/Vol] 8.4 g/dL Low 13.0-18.0 [facility] Comment on above: Performed By: #### L AB103, LAB15 #### Director Of Home Care Hospice: HIPOLITO [phone]) [facility] [address] [place] [address] MCH (RBC) [Entitic mass] 31.5 pg Normal 26.0-34.0 [facility] Comment on above: Performed By: #### L AB103, [id number] #### Director Of Home Care Hospice: HIPOLITO WOODS ([phone]) [facility] ([facility]) [address] [place] [address] MCHC 33.3 % Normal 30.5-36.0 [facility] Comment on above: Performed By: #### L [id number], [id number] #### Director Of Home Care Hospice: HIPOLITO WOODS ([id number]) [facility] ([facility]) [address] [place] [address] MCV (RBC) [Entitic vol] 94.4 fL Normal 77.0-99.0 [facility] Comment on above: Performed By: #### L [id number], [id number] #### Director Of Home Care Hospice: HIPOLITO WOODS ([phone]) [facility] ([facility]) [address] [place] [address] Platelet mean volume (Bld) [Entitic vol] 11.5 fL Normal 9.0-12.7 [facility] Comment on above: Performed By: #### L AB103, [id number] #### Director Of Home Care Hospice: HIPOLITO WOODS ([id number]) [facility] ([facility]) [address] [place] [address] Platelets (Bld) [#/Vol] 153 10*3/uL Normal 140-440 [facility] Comment on above: Performed By: #### L AB103, [id number] #### Director Of Home Care Hospice: HIPOLITO WOODS ([phone]) [facility] ([facility]) [address] [place] [address] RBC (Bld) [#/Vol] 2.67 10*6/uL Low 4.40-5.90 [facility] Comment on above: Performed By: #### L AB103, [id number] #### Director Of Home Care Hospice: HIPOLITO WOODS ([id number]) [facility] ([facility]) [address] WBC (Bld) [#/Vol] 8.8 10*3/uL Normal 3.6-10.7 [facility] Comment on above: Performed By: #### L AB103, [id number] #### Director Of Home Care Hospice: HIPOLITO WOODS ([phone]) [facility] ([facility]) [address] [place] [address] CBC panel Auto (Bld)on 02-01 Erythrocyte distribution width (RBC) [Ratio] 12.9 % 11.5 - 15.0 % [facility] Hematocrit (Bld) [Volume fraction] 25.2 % Low 40.0 - 52.0 % [facility] Hemoglobin (Bld) [Mass/Vol] 8.4 g/dL Low 13.0 - 18.0 g/dL [facility] Interpretation and review of laboratory results Abnormal [facility] MCH (RBC) [Entitic mass] 31.5 pg 26. 0 - 34.0 pg [facility] MCHC (RBC) [Mass/Vol] 33.3 % 30.5 - 36.0 % [facility] MCV (RBC) [Entitic vol] 94.4 fL 77.0 - 99.0 fL [facility] Platelet mean volume (Bld) [Entitic vol] 11.5 fL 9.0 - 12.7 fL [facility] Platelets (Bld) [#/Vol] 153 10*3/uL 140 - 440 10*3/uL [facility] RBC (Bld) [#/Vol] 2.67 10*6/uL Low 4.40 - 5.9 0 10*6/uL [facility] WBC (Bld) [#/Vol] 8.8 10*3/uL 3.6 - 10.7 10*3/uL [facility] Calcium.ionized [Moles/Vol]o n 02-01-2025 Calcium.ionized (Bld) [Moles/Vol] 4.6 mg/dL 4.30 - 5.20 mg/dL [facility] Interpretation and review of laboratory results Normal [facility] PH, IONIZED CALCIUM 7.43 7.31 - 7.46 [facility] - Chemistry and C hemistry - challengeon 02-01-2025 Glucose [Mass/Vol] 182 mg/dL High 70 - 100 mg/dL [facility] Glucose [Mass/Vol] 212 mg/dL High 70 - 100 mg/dL [facility] Glucose [Mass/Vol] 182 mg/dL High 70 - 100 mg/dL [facility] Magnesium [Mass/Vol] 1.3 mg/dL Low 1.6 - 2 .6 mg/dL [facility] MAGNESIUMon 02-01-2025 Magnesium [Mass/Vol] 1.3 mg/dL Low 1.6-2.6 [facility] Comment on above: Result Comment: TOM Peterson COMMENTS: Higher values can be expected in females during menses. Performed By: #### L AB103, LAB15 #### Director Of Home Care Hospice: HIPOLITO WOODS ([phone]) [facility] ([facility]) [address] [place] [address] Magnesium [Mass/Vol]on 02-01 [facility] No Panel Informationon 02-01 Interpretation and review of laboratory results Abnormal [facility] Interpretation and review of laboratory results Abnormal [facility] Interpretation and review of laboratory results Abnormal [facility] Interpretation and review of laboratory results Abnormal [facility] Progress Noteon 02-01-2025 Progress Note PHYSICAL THERAPY [facility] Treatment Note Name/MRN: Ryan Macedo ([id number]) Date of : 1955 Age: 69 y.o. [...] safety awareness with sternal precautions. Device(s) used: Calligo Ambulation Ambulation 1 Assistive device(s) used: Calligo Assist level: SBA Distance (ft): 355ft Quality [...] 23 Minutes (gtx1 fax1) Dafne Alexander PTA [facility] Progress Note Department of Internal Medicine Division of Endocrinology, Diabetes, & Metabolism Endocrinology Note Patient Name: Ryan Macedo : 1955 AGE: 69 y.o. Room/Bed: T1-121/T1-121 A Admission Date: 01/29/2025 Visit Date: 02/01/2025 Reason for Endocrine Consult: post heart Provider/Team Requesting Consult: cts PCP: MIRIAM GOMEZ Outpt Workforce Staffing Advisor: No ASSESSMENT: Stress hyperglycemia DM2 with hyperglycemia without residential insulin CABGx3 Htn/hld/cad PLAN: -Increase lantus 14 [...] halls CT in place Ate small bfast- singaporean toast No nv noted Spoke with team [...] Meds:PRN Me (more content not included)... Normal [facility] XR CHEST 1 VIEWon 02-01-2025 XR CHEST [...] Signed Date/Time: 02/01/2025 6:51 AM EDT Normal [facility] XR Chest Single viewon 02-01 [facility] Radiology Study observation (narrative) Theodore new [id number] 01-31-2025 [id number] Patient Choice Patient Name: RYAN MACEDO Date of : 1955 All Providers Sent Referral Name: [facility] Phone: [phone] Address: [address] [place] [address] Normal [facility] BASIC METABOLIC PANELon 01-07 Anion gap [Moles/Vol] 9 mmol/L Normal 3-13 [facility] Comment on above: Performed By: #### L AB15, [id number] ####Director Of Home Care Hospice: HIPOLITO WOODS ([phone])[facility] [place] [address] Calcium [Mass/Vol] 9.1 mg/dL Normal 8.8-10.0 [facility] Comment on above: Performed By: #### L AB15, [id number] ####Director Of Home Care Hospice: HIPOLITO WOODS ([phone])[facility] [place] [address] Chloride [Moles/Vol] 106 mmol/L Normal 98-107 [facility] Comment on above: Performed By: #### L AB15, [id number] ####Director Of Home Care Hospice: HIPOLITO WOODS ([phone])[facility] ([facility])[address] [place] [address] CO2 [Moles/Vol] 24 mmol/L Normal 23-31 [facility] Comment on above: Performed By: #### L AB15, [id number] ####Director Of Home Care Hospice: HIPOLITO WOODS ([phone])[facility] ([facility])[address] [place] [address] Creatinine [Mass/Vol] 1.06 mg/dL Normal 0.72-1.25 [facility] Comment on above: Performed By: #### L AB15, [id number] ####Director Of Home Care Hospice: HIPOLITO WOODS ([phone])[facility] ([facility])[address] [place] [address] [place] GLOMERULAR FILTRATION RATE ML/MIN/1.73 SQ M.PREDICTED 75.5 mL/min/1.73m*2 Normal >60.0 [facility] Comment on above: Result Comment: Calc ulation based on the Chronic Kidney Disease Epidemiology Collaboration (CKD-EPI) equation refit without adjustment for race Performed By: #### L AB15, [id number] ####Director Of Home Care Hospice: HIPOLITO WOODS ([id number])[facility] ([facility])[address] [place] [address] [place] Glucose [Mass/Vol] 124 mg/dL High 82-115 [facility] Comment on above: Performed By: #### L AB15, [id number] ####Director Of Home Care Hospice: HIPOLITO [phone])[facility] ([facility])[address] [place] [address] Potassium [Moles/Vol] 3.5 mmol/L Normal 3.5-5.1 [facility] Comment on above: Result Comment: [facility] potassium values may be up to 0.5 mmol/L lower than serum values. Performed By: #### L AB15, [id number] ####Director Of Home Care Hospice: HIPOLITO WOODS ([phone])[facility] [place] [address] Sodium [Moles/Vol] 139 mmol/L Normal 136-145 [facility] Comment on above: Performed By: #### L AB15, [id number] ####Director Of Home Care Hospice: HIPOLITO WOODS ([phone])[facility] [place] [address] Urea nitrogen [Mass/Vol] 20 mg/dL Normal 9-23 [facility] Comment on above: Performed By: #### L AB15, [id number] ####Director Of Home Care Hospice: HIPOLITO WOODS ([phone])[facility] [place] [address] Basic metabolic 1998 panelon 01-31-2025 Anion gap [Moles/Vol] 9 mmol/L 3 - 13 mmol/L [facility] Calcium [Mass/Vol] 9.1 mg/dL 8.8 - 10. 0 mg/dL [facility] Chloride [Moles/Vol] 106 mmol/L 98 - 10 7 mmol/L [facility] CO2 [Moles/Vol] 24 mmol/L 23 - 31 mmol/L [facility] Creatinine [Mass/Vol] 1.06 mg/dL 0.72 - 1.25 mg/dL [facility] GFR/1.73 sq M.predicted (S/P/Bld) [Vol rate/Area] 75.5 mL/min - PINF [facility] Glucose [Mass/Vol] 124 mg/dL High 82 - 115 mg/dL [facility] Interpretation and review of laboratory results Abnormal [facility] Potassium [Moles/Vol] 3.5 mmol/L 3.5 - 5.1 mmol/L [facility] Sodium [Moles/Vol] 139 mmol/L 136 - 145 mmol/L [facility] Urea nitrogen [Mass/Vol] 20 mg/dL 9 - 23 mg/d L [facility] CBC (HEMOGRAM)on 01-31-2025 Erythrocyte distribution width (RBC) [Ratio] 13.0 % Normal 11.5-15.0 [facility] Comment on above: Performed By: #### L [id number] ####Director Of Home Care Hospice: HIPOLITO WOODS ([phone])[facility])[address] [place] [address] Hematocrit (Bld) [Volume fraction] 28.5 % Low 40.0-52.0 [facility] Comment on above: Performed By: #### L [id number] ####Director Of Home Care Hospice: HIPOLITO WOODS ([phone])[address] Hemoglobin (Bld) [Mass/Vol] 9.3 g/dL Low 13.0-18.0 [facility] Comment on above: Performed By: #### L [id number] ####Director Of Home Care Hospice: HIPOLITO WOODS ([phone])[facility])[address] [place] [address] MCH (RBC) [Entitic mass] 31.1 pg Normal 26.0-34.0 [facility] Comment on above: Performed By: #### L [id number] ####Director Of Home Care Hospice: HIPOLITO WOODS ([phone])[address] MCHC 32.6 % Normal 30.5-36.0 [facility] Comment on above: Performed By: #### L [id number] ####Director Of Home Care Hospice: HIPOLITO [phone])[address] MCV (RBC) [Entitic vol] 95.3 fL Normal 77.0-99.0 [facility] Comment on above: Performed By: #### L [id number] ####Director Of Home Care Hospice: HIPOLITO [phone])[facility] ([facility])[address] [place] [address] Platelet mean volume (Bld) [Entitic vol] 11.4 fL Normal 9.0-12.7 [facility] Comment on above: Performed By: #### L [id number] ####Director Of Home Care Hospice: HIPOLITO WOODS ([phone])[facility])[address] [place] [address] Platelets (Bld) [#/Vol] 170 10*3/uL Normal 140-440 [facility] Comment on above: Performed By: #### L [id number] ####Director Of Home Care Hospice: HPIOLITO WOODS ([phone])[facility])[address] [place] [address] RBC (Bld) [#/Vol] 2.99 10*6/uL Low 4.40-5.90 [facility] Comment on above: Performed By: #### L [id number] ####Director Of Home Care Hospice: HIPOLITO WOODS ([phone])[facility] ([facility])[address] [place] [address] WBC (Bld) [#/Vol] 11.3 10*3/uL High 3.6-10.7 [facility] Comment on above: Performed By: #### L [id number] ####Director Of Home Care Hospice: HIPOLITO WOODS ([phone])[facility])[address] [place] [address] CBC panel Auto (Bld)on 01-31 Erythrocyte distribution width (RBC) [Ratio] 13 % 11.5 - 15.0 % [facility] Hematocrit (Bld) [Volume fraction] 28.5 % Low 40.0 - 52.0 % [facility] Hemoglobin (Bld) [Mass/Vol] 9.3 g/dL Low 13.0 - 18.0 g/dL [facility] Interpretation and review of laboratory results Abnormal [facility] MCH (RBC) [Entitic mass] 31.1 pg 26. 0 - 34.0 pg [facility] MCHC (RBC) [Mass/Vol] 32.6 % 30.5 - 36.0 % [facility] MCV (RBC) [Entitic vol] 95.3 fL 77.0 - 99.0 fL [facility] Platelet mean volume (Bld) [Entitic vol] 11.4 fL 9.0 - 12.7 fL [facility] Platelets (Bld) [#/Vol] 170 10*3/uL 140 - 440 10*3/uL [facility] RBC (Bld) [#/Vol] 2.99 10*6/uL Low 4.40 - 5.9 0 10*6/uL [facility] WBC (Bld) [#/Vol] 11.3 10*3/uL High 3.6 - 10.7 10*3/uL [facility] ECG 12-LEADon 01-31-2025 ECG 12-LEAD IMPRESSION: Sinus rhythm BORDERLINE ST ELEVATION, ANTERIOR LEADS Electronically Signed On 01-31-2025 10:39:[address] [facility] ECG 12-LEAD IMPRESSION: Poor Baseline Suspect Atrial fibrillation less likely MAT Electronically Signed On 01-31-2025 10:24:[address] [facility] Laboratory - Chemistry and C hemistry - challengeon 01-31-2025 Glucose [Mass/Vol] 230 mg/dL High 70 - 100 mg/dL [facility] Glucose [Mass/Vol] 206 mg/dL High 70 - 100 mg/dL [facility] Glucose [Mass/Vol] 152 mg/dL High 70 - 100 mg/dL [facility] Glucose [Mass/Vol] 188 mg/dL High 70 - 100 mg/dL [facility] Glucose [Mass/Vol] 230 mg/dL High 70 - 100 mg/dL [facility] Glucose [Mass/Vol] 191 mg/dL High 70 - 100 mg/dL [facility] Glucose [Mass/Vol] 156 mg/dL High 70 - 100 mg/dL [facility] Magnesium [Mass/Vol] 1.9 mg/dL 1.6 - 2 .6 mg/dL [facility] Glucose [Mass/Vol] 143 mg/dL High 70 - 100 mg/dL [facility] Glucose [Mass/Vol] 140 mg/dL High 70 - 100 mg/dL [facility] Glucose [Mass/Vol] 110 mg/dL High 70 - 100 mg/dL [facility] Laboratory - Coagulationon 0 01-31-2025 aPTT Coag (PPP) [Time] 32.9 s High 20.0 - 30.5 s [facility] INR Coag (PPP) [Relative time] 1.2 {INR} High 0.9 - 1.1 [facility] PT Coag (Bld) [Time] 12.4 s High 9.0 - 12.0 s [facility] MAGNESIUMon 01-31-2025 Magnesium [Mass/Vol] 1.9 mg/dL Normal 1.6-2.6 [facility] Comment on above: Result Comment: TOM Peterson COMMENTS: Higher values can be expected in females during menses. Performed By: #### L AB15, [id number] ####Director Of Home Care Hospice: HIPOLITO WOODS ([phone])[facility] ([address] Magnesium [Mass/Vol]on 01-31 Interpretation and review of laboratory results Normal [facility] No Panel Informationon 01-31 Interpretation and review of laboratory results Abnormal [facility] Interpretation and review of laboratory results Abnormal [facility] Interpretation and review of laboratory results Abnormal [facility] P [place] 84 degrees [facility] MI Interval 149 ms [facility] QRS [place] 4 degrees [facility] QRSD Interval 91 ms [facility] h QT Interval 383 ms [facility] QTC Interval 466 ms [facility] T Wave [place] 45 degrees [facility] CV EPIPHANY [facility] P [place] 0 degrees [facility] MI Interval 172 ms [facility] QRS [place] 10 degrees [facility] QRSD Interval [address] [facility]val 322 ms [facility] QTC Interval 454 ms [facility] T Wave [place] 0 degrees [facility] CV EPIPHANY [facility] Interpretation and review of laboratory results Abnormal [facility] Interpretation and review of laboratory results Abnormal [facility] Interpretation and review of laboratory results Abnormal [facility] Interpretation and review of laboratory results Abnormal [facility] Interpretation and review of laboratory results Abnormal [facility] Interpretation and review of laboratory results Abnormal [facility] Interpretation and review of laboratory results Abnormal [facility] Interpretation and review of laboratory results Abnormal [facility] Nursing Noteon 01-31-2025 Nursing Note Patient up in chair from approx 0245 to 0500. Returned to bed per pt request d/t discomfort. Pt denying to ambulate at this time. Normal [facility] PROTIME AND APTTon aPTT Coag (Bld) [Time] 32.9 s High 20.0-30.5 [facility] Comment on above: Performed By: #### L [id number] ####Director Of Home Care Hospice: HIPOLITO WOODS ([phone])[facility])[address] [place] [address] INR Coag (PPP) [Relative time] 1.2 {INR} High 0.9-1.1 [facility] Comment on above: Result Comment: Mino mmended [...] prevent Myocardial Infarction Performed By: #### L [id number] ####Director Of Home Care Hospice: HIPOLITO WOODS ([phone])[address] PT Coag (PPP) [Time] 12.4 s High 9.0-12.0 [facility] Comment on above: Performed By: #### L [id number] ####Director Of Home Care Hospice: HIPOLITO WOODS ([phone])[address] Progress Noteon 01-31-2025 Progress Note Physician Response Please review the following and provide your response below. Please clarify which of the following accurately describes the patient's lab value: Acquired Hypofibrinogenemia This documentation will become part of the patient's medical record. Normal [facility] Progress Note PHYSICAL THERAPY [facility] Treatment Note Name/MRN: Ryan Macedo ([id number]) Date of : 1955 Age: 69 y.o. [...] Code Treatment Minutes: (TP) Miguelina Ortiz PTA [facility] Progress Note Department of Internal Medicine Division of Endocrinology, Diabetes, & Metabolism Endocrinology Note Patient Name: Ryan Macedo : 1955 AGE: 69 y.o. Room/Bed: T1-121/T1-121 A Admission Date: 01/29/2025 Visit Date: 01/31/2025 Reason for Endocrine Consult: post heart Provider/Team Requesting Consult: cts PCP: MIRIAM GOMEZ Outpt Workforce Staffing Advisor: No ASSESSMENT: Stress hyperglycemia DM2 with hyperglycemia without sales order coordinator insulin CABGx3 Htn/hld/cad PLAN: -Give lantus 12 [...] halls CT in place Ate small bfast- singaporean toast No nv noted Spoke with team [...] Meds:PRN Meds[3] (more content not included)... [facility] Vital signson 01-31-2025 Heart rate 89 /min bpm [facility] Heart rate 119 /min bpm [facility] XR CHEST 1 VIEWon 01-31-2025 XR CHEST 1 VIEW Patient Name: RYAN [facility]ED[facility] : 1955 [id number] Exam Date/Time: 01/31/2025 05:20 Procedure: XR CHEST [...] Signed Date/Time: 01/31/2025 6:58 AM EDT [facility] XR Chest Single viewon 01-31 [facility] Radiology Study observation (narrative) [facility] XR Chest Single viewOrdered By: Viviana Cohen on 01-31-2025 [facility] Work Phone: BASIC METABOLIC PANELon 01-07 Anion gap [Moles/Vol] 5 mmol/L Normal 3-13 [facility] Comment on above: Performed By: #### L AB15, [id number] ####Director Of Home Care Hospice: HIPOLITO WOODS ([phone])[facility] ([address] Calcium [Mass/Vol] 8.4 mg/dL Low 8.8-10.0 [facility] Comment on above: Performed By: #### L AB15, [id number] ####Director Of Home Care Hospice: HIPOLITO WOODS ([phone])[facility] [place] [address] [place] Chloride [Moles/Vol] 112 mmol/L High 98-107 [facility] Comment on above: Performed By: #### L AB15, [id number] ####Director Of Home Care Hospice: HIPOLITO WOODS ([phone])[facility] [place] [address] [place] CO2 [Moles/Vol] 24 mmol/L Normal 23-31 [facility] Comment on above: Performed By: #### L AB15, [id number] ####Director Of Home Care Hospice: HIPOLITO WOODS ([id number])[facility] ([facility])[address] [place] [address] Creatinine [Mass/Vol] 1.03 mg/dL Normal 0.72-1.25 [facility] Comment on above: Performed By: #### L AB15, [id number] ####Director Of Home Care Hospice: HIPOLITO WOODS ([phone])[facility] ([facility])[address] [place] [address] [place] GLOMERULAR FILTRATION RATE ML/MIN/1.73 SQ M.PREDICTED 78.1 mL/min/1.73m*2 Normal >60.0 [facility] Comment on above: Result Comment: Calc ulation based on the Chronic Kidney Disease Epidemiology Collaboration (CKD-EPI) equation refit without adjustment for race Performed By: #### L AB15, [id number] ####Director Of Home Care Hospice: HIPOLITO WOODS ([phone])[facility] ([facility])[address] [place] [address] [place] Glucose [Mass/Vol] 151 mg/dL High 82-115 [facility] Comment on above: Performed By: #### L AB15, [id number] ####Director Of Home Care Hospice: HIPOLITO WOODS ([phone])[facility])[address] [place] [address] Potassium [Moles/Vol] 3.9 mmol/L Normal 3.5-5.1 [facility] Comment on above: Result Comment: [facility] potassium values may be up to 0.5 mmol/L lower than serum values. Performed By: #### L AB15, [id number] ####Director Of Home Care Hospice: HIPOLITO WOODS ([phone])[facility])[address] [place] [address] Sodium [Moles/Vol] 141 mmol/L Normal 136-145 [facility] Comment on above: Performed By: #### L AB15, [id number] ####Director Of Home Care Hospice: HIPOLITO WOODS ([id number])[facility] ([facility])[address] [place] [address] Urea nitrogen [Mass/Vol] 19 mg/dL Normal 9-23 [facility] Comment on above: Performed By: #### L AB15, [id number] ####Director Of Home Care Hospice: HIPOLITO WOODS ([id number])[facility] ([facility])[address] [place] [address] Basic metabolic 1998 panelon 01-30-2025 Anion gap [Moles/Vol] 5 mmol/L 3 - 13 mmol/L [facility] Calcium [Mass/Vol] 8.4 mg/dL Low 8.8 - 10. 0 mg/dL [facility] Chloride [Moles/Vol] 112 mmol/L High 98 - 10 7 mmol/L [facility] CO2 [Moles/Vol] 24 mmol/L 23 - 31 mmol/L [facility] Creatinine [Mass/Vol] 1.03 mg/dL 0.72 - 1.25 mg/dL [facility] GFR/1.73 sq M.predicted (S/P/Bld) [Vol rate/Area] 78.1 mL/min - PINF [facility] Glucose [Mass/Vol] 151 mg/dL High 82 - 115 mg/dL [facility] Interpretation and review of laboratory results Abnormal [facility] Potassium [Moles/Vol] 3.9 mmol/L 3.5 - 5.1 mmol/L [facility] Sodium [Moles/Vol] 141 mmol/L 136 - 145 mmol/L [facility] Urea nitrogen [Mass/Vol] 19 mg/dL 9 - 23 mg/d L [facility] CALCIUM, IONIZEDon CALCIUM IONIZED 4.40 mg/dL Normal 4.30-5.20 [facility] Comment on above: Order Comment: Obtai n PRN and check ionized Ca level if serum Ca level less than 8.0 Performed By: #### L AB54 ####Director Of Home Care Hospice: HIPOLITO WOODS ([phone])[facility])[address] [place] [address] PH, IONIZED CALCIUM 7.40 Normal 7.31-7.46 [facility] Comment on above: Order Comment: Obtai n PRN and check ionized Ca level if serum Ca level less than 8.0 Performed By: #### L AB54 ####Director Of Home Care Hospice: HIPOLITO WOODS ([phone])[facility])[address] [place] [address] CBC (HEMOGRAM)on 01-30-2025 Erythrocyte distribution width (RBC) [Ratio] 12.5 % Normal 11.5-15.0 [facility] Comment on above: Performed By: #### L AB103, LAB15 #### Director Of Home Care Hospice: HIPOLITO WOODS ([id number]) [facility] ([facility]) [address] [place] [address] Hematocrit (Bld) [Volume fraction] 26.9 % Low 40.0-52.0 [facility] Comment on above: Performed By: #### L AB103, LAB15 #### Director Of Home Care Hospice: HIPOLITO WOODS ([phone]) [address] Hemoglobin (Bld) [Mass/Vol] 8.9 g/dL Low 13.0-18.0 [facility] Comment on above: Performed By: #### L AB103, LAB15 #### Director Of Home Care Hospice: HIPOLITO WOODS ([id number]) [facility]) [address] [place] [address] MCH (RBC) [Entitic mass] 30.7 pg Normal 26.0-34.0 [facility] Comment on above: Performed By: #### L AB103, LAB15 #### Director Of Home Care Hospice: HIPOLITO WOODS ([id number]) [facility]) [address] [place] [address] MCHC 33.1 % Normal 30.5-36.0 [facility] Comment on above: Performed By: #### L AB103, LAB15 #### Director Of Home Care Hospice: HIPOLITO WOODS ([id number]) [facility] ([facility]) [address] [place] [address] MCV (RBC) [Entitic vol] 92.8 fL Normal 77.0-99.0 [facility] Comment on above: Performed By: #### L AB103, LAB15 #### Director Of Home Care Hospice: HIPOLITO WOODS ([id number]) [facility]) [address] [place] [address] Platelet mean volume (Bld) [Entitic vol] 10.8 fL Normal 9.0-12.7 [facility] Comment on above: Performed By: #### L AB103, LAB15 #### Director Of Home Care Hospice: HIPOLITO WOODS ([id number]) [facility] ([facility]) [address] [place] [address] Platelets (Bld) [#/Vol] 151 10*3/uL Normal 140-440 [facility] Comment on above: Performed By: #### L AB103, LAB15 #### Director Of Home Care Hospice: HIPOLITO WOODS ([id number]) [facility] ([facility]) [address] [place] [address] RBC (Bld) [#/Vol] 2.90 10*6/uL Low 4.40-5.90 [facility] Comment on above: Performed By: #### L AB103, LAB15 #### Director Of Home Care Hospice: HIPOLITO WOODS ([id number]) [facility] ([facility]) [address] [place] [address] WBC (Bld) [#/Vol] 8.6 10*3/uL Normal 3.6-10.7 [facility] Comment on above: Performed By: #### L AB103, LAB15 #### Director Of Home Care Hospice: HIPOLITO WOODS ([id number]) [facility]) [address] [place] [address] CBC panel Auto (Bld)on 01-30 Erythrocyte distribution width (RBC) [Ratio] 12.5 % 11.5 - 15.0 % [facility] Hematocrit (Bld) [Volume fraction] 26.9 % Low 40.0 - 52.0 % [facility] Hemoglobin (Bld) [Mass/Vol] 8.9 g/dL Low 13.0 - 18.0 g/dL [facility] Interpretation and review of laboratory results Abnormal [facility] MCH (RBC) [Entitic mass] 30.7 pg 26. 0 - 34.0 pg [facility] MCHC (RBC) [Mass/Vol] 33.1 % 30.5 - 36.0 % [facility] MCV (RBC) [Entitic vol] 92.8 fL 77.0 - 99.0 fL [facility] Platelet mean volume (Bld) [Entitic vol] 10.8 fL 9.0 - 12.7 fL [facility] Platelets (Bld) [#/Vol] 151 10*3/uL 140 - 440 10*3/uL [facility] RBC (Bld) [#/Vol] 2.9 10*6/uL Low 4.40 - 5.9 0 10*6/uL [facility] WBC (Bld) [#/Vol] 8.6 10*3/uL 3.6 - 10.7 10*3/uL [facility] Calcium.ionized [Moles/Vol]o n 01-30-2025 Calcium.ionized (Bld) [Moles/Vol] 4.4 mg/dL 4.30 - 5.20 mg/dL [facility] Interpretation and review of laboratory results Normal [facility] PH, IONIZED CALCIUM 7.4 7.31 - 7.46 [facility] Consulton 01-30-2025 Consult - Attestation signed by Olaf Schaeffer at 01/30/2025 1:28 PM I discussed management with the Nurse Practitioner (HOSPITALIST NOCTURNIST PHYSICIAN). I reviewed the HOSPITALIST NOCTURNIST PHYSICIAN's note and agree with the documented findings [...] Requesting Consult: cts PCP: MIRIAM GOMEZ Outpt Workforce Staffing Advisor: No ASSESSMENT: Stress hyperglycemia DM2 with hyperglycemia without residential insulin CABGx3 Htn/hld/cad PLAN: For now continue [...] Ozempic ( (more content not included)... [facility] ECG 12-LEADon 01-30-2025 ECG 12-LEAD IMPRESSION: Sinus rhythm Borderline ST elevation, anterior leads Compared to ECG 01/29/2025 16:30:[address] elevation noted Electronically Signed On 01-30-2025 11:46:29 EDT by Ryan Barksdale Normal [facility] HEMOGLOBIN A1Con 01-30-2025 Glucose [Mass/Vol] 148 mg/dL [facility] Comment on above: Result Comment: TOM Peterson COMMENTS: HbA1c values of 5.7-6.4 percent indicate an increased risk for developing diabetes mellitus. HbA1c values greater than or equal to 6.5 percent are diagnostic of diabetes mellitus. For diagnosis of diabetes in individuals without unequivocal hyperglycemia, results should be confirmed by repeat testing. Performed By: #### L AB90 ####Director Of Home Care Hospice: HIPOLITO WOODS ([id number])[facility] ([address] HEMOGLOBIN A1C 6.8 %HbA1C High <5.7 [facility] Comment on above: Result Comment: Norm al less than 5.7% Prediabetes 5.7% to 6.4% Diabetes 6.5% or higher --HgbA1C levels may not be accurate in patients who have renal disease, received recent blood transfusions, are anemic, or who have dyshemoglobinemia. Performed By: #### L AB90 ####Director Of Home Care Hospice: HIPOLITO WOODS ([phone])[facility] ([facility] Laboratory - Chemistry and C hemistry - challengeon 01-30-2025 Glucose [Mass/Vol] 126 mg/dL High 70 - 100 mg/dL [facility] Glucose [Mass/Vol] 134 mg/dL High 70 - 100 mg/dL [facility] Glucose [Mass/Vol] 160 mg/dL High 70 - 100 mg/dL [facility] Glucose [Mass/Vol] 152 mg/dL High 70 - 100 mg/dL [facility] Glucose [Mass/Vol] 177 mg/dL High 70 - 100 mg/dL [facility] Glucose [Mass/Vol] 151 mg/dL High 70 - 100 mg/dL [facility] Glucose [Mass/Vol] 131 mg/dL High 70 - 100 mg/dL [facility] Glucose [Mass/Vol] 129 mg/dL High 70 - 100 mg/dL [facility] Average glucose Estimated from glycated hemoglobin (Bld) [Mass/Vol] 148 mg/dL [facility] Glucose [Mass/Vol] 117 mg/dL High 70 - 100 mg/dL [facility] Glucose [Mass/Vol] 115 mg/dL High 70 - 100 mg/dL [facility] Glucose [Mass/Vol] 101 mg/dL High 70 - 100 mg/dL [facility] Glucose [Mass/Vol] 128 mg/dL High 70 - 100 mg/dL [facility] Glucose [Mass/Vol] 120 mg/dL High 70 - 100 mg/dL [facility] Glucose [Mass/Vol] 114 mg/dL High 70 - 100 mg/dL [facility] Glucose [Mass/Vol] 126 mg/dL High 70 - 100 mg/dL [facility] Glucose [Mass/Vol] 129 mg/dL High 70 - 100 mg/dL [facility] Glucose [Mass/Vol] 163 mg/dL High 70 - 100 mg/dL [facility] Glucose [Mass/Vol] 171 mg/dL High 70 - 100 mg/dL [facility] Glucose [Mass/Vol] 130 mg/dL High 70 - 100 mg/dL [facility] Glucose [Mass/Vol] 145 mg/dL High 70 - 100 mg/dL [facility] Glucose [Mass/Vol] 138 mg/dL High 70 - 100 mg/dL [facility] Glucose [Mass/Vol] 133 mg/dL High 70 - 100 mg/dL [facility] Glucose [Mass/Vol] 133 mg/dL High 70 - 100 mg/dL [facility] Magnesium [Mass/Vol] 2 mg/dL 1.6 - 2 .6 mg/dL [facility] Glucose [Mass/Vol] 174 mg/dL High 70 - 100 mg/dL [facility] Laboratory - Coagulationon 0 01-30-2025 aPTT Coag (PPP) [Time] 32.5 s High 20.0 - 30.5 s [facility] INR Coag (PPP) [Relative time] 1.2 {INR} High 0.9 - 1.1 [facility] PT Coag (Bld) [Time] 12.6 s High 9.0 - 12.0 s [facility] Laboratory - Hematology and Cell countson 01-30-2025 HbA1c (Bld) [Mass fraction] 6.8 % High NINF [facility] MAGNESIUMon 01-30-2025 Magnesium [Mass/Vol] 2.0 mg/dL Normal 1.6-2.6 [facility] Comment on above: Result Comment: TOM Peterson COMMENTS: Higher values can be expected in females during menses. Performed By: #### L AB15, [id number] ####Director Of Home Care Hospice: HIPOLITO WOODS ([phone])[facility] ([facility] Magnesium [Mass/Vol]on 01-30 Interpretation and review of laboratory results Normal [facility] No Panel Informationon 01-30 Interpretation and review of laboratory results Abnormal [facility] Interpretation and review of laboratory results Abnormal [facility] Interpretation and review of laboratory results Abnormal [facility] Interpretation and review of laboratory results Abnormal [facility] Interpretation and review of laboratory results Abnormal [facility] Interpretation and review of laboratory results Abnormal [facility] Interpretation and review of laboratory results Abnormal [facility] Interpretation and review of laboratory results Abnormal [facility] Interpretation and review of laboratory results Abnormal [facility] Interpretation and review of laboratory results Abnormal [facility] Interpretation and review of laboratory results Abnormal [facility] Interpretation and review of laboratory results Abnormal [facility] Interpretation and review of laboratory results Abnormal [facility] Interpretation and review of laboratory results Abnormal [facility] Interpretation and review of laboratory results Abnormal [facility] Interpretation and review of laboratory results Abnormal [facility] Interpretation and review of laboratory results Abnormal [facility] Interpretation and review of laboratory results Abnormal [facility] Interpretation and review of laboratory results Abnormal [facility] Interpretation and review of laboratory results Abnormal [facility] Interpretation and review of laboratory results Abnormal [facility] Interpretation and review of laboratory results Abnormal [facility] Interpretation and review of laboratory results Abnormal [facility] Interpretation and review of laboratory results Abnormal [facility] Interpretation and review of laboratory results Abnormal [facility] Interpretation and review of laboratory results Abnormal [facility] No Panel InformationOrdered By: Ryan Barksdale on 01-30-2025 P [place] 70 degrees [facility] Work Phone: MI Interval 181 ms [facility] Work Phone: QRS [place] 6 degrees [facility] Work Phone: QRSD Interval 101 ms [facility] Work Phone: QT Interval 397 ms [facility] Work Phone: QTC Interval 448 ms [facility] Work Phone: [phone] Wave [place] 39 degrees [facility] Work Phone: [phone] [facility] Work Phone: [phone] PROTIME AND APTTon aPTT Coag (Bld) [Time] 32.5 s High 20.0-30.5 [facility] Comment on above: Performed By: #### Curly BRAVO103, LAB15 #### Director Of Home Care Hospice: HIPOLITO WOODS ([phone]) [facility] ([facility]) [address] [place] [address] INR Coag (PPP) [Relative time] 1.2 {INR} High 0.9-1.1 [facility] Comment on above: Result Comment: Mino mmended [...] Performed By: #### Curly RAMIREZ, LAB15 #### Director Of Home Care Hospice: HIPOLITO WOODS ([phone]) [facility]) [address] [place] [address] PT Coag (PPP) [Time] 12.6 s High 9.0-12.0 [facility] Comment on above: Performed By: #### Curly BRAVO103, LAB15 #### Director Of Home Care Hospice: HIPOLITO WOODS ([phone]) [facility]) [address] [place] [address] Progress Noteon 01-30-2025 Progress Note OCCUPATIONAL THERAPY [facility] Name/MRN: Ryan Macedo ([id number]) Date: 01/30/2025 Evaluation is being deferred at present because pt states he just worked with PT and is politely declining OT eval due to fatigue . Pt agreeable to OT eval at a later date. Will continue to assess. Fam Dorsey, OT [facility] Progress Note - Attestation signed by Sunny Youssef DO at 01/30/2025 10:12 AM I have personally performed a [id number] diagnostic evaluation on this patient on date of service 01/30/25. History, labs, imaging studies, and electronic medical record have been reviewed by me. This note documented by the []Critical Care Fellow []retail warehouse supervisor [x]KIM reflects my history, exam, and medical [...] DVT prophy: (more content not included)... Normal [facility] US Heart Transesophagealon 0 01-30-2025 CV CPACS HEMO US Heart TransesophagealOrde red By: Manuel Espana on 01-30-2025 [employer] Work Phone: Vital signsOrdered By: Rachelle Barksdale on 01-30-2025 Heart rate 77 /min bpm [employer] Work Phone: XR CHEST 1 VIEWon 01-30-2025 XR CHEST 1 VIEW Patient Name: RYAN [facility]EDO : 1955 [id number] Exam Date/Time: 01/30/2025 05:12 Procedure: XR CHEST [...] atelectasis Report Dictated on Electronically Signed By: Edmunod Cordoba MD Electronically Signed Date/Time: 01/30/2025 6:18 AM EDT [facility] XR Chest Single viewon 01-30 [facility] RADIOLOGY SYSTEM [facility] RADIOLOGY SYSTEM [facility] Radiology Study observation (narrative) [facility] XR Chest Single viewOrdered By: Edmundo Cordoba on 01-30-2025 [facility] Work Phone: ABO and Rh group Confirm Nom (Bld)on 01-29-2025 ABO group Nom (Bld) O [facility] D Ag Ql (RBC) Positive [facility] Airwayon 01-29-2025 HARMONY Naik CRNA 01/29/2025 1:10 PM Airway Date/Time: 01/29/2025 12:08 PM Reason: scheduled Airway not difficult General Information and Staff Patient location during procedure: Procedural Anesthesiologist: Elías Diaz DO Resident/ADVANCED MANUFACTURING ENGINEER: HARMONY Naik CRNA Performed: SRNA Patient Condition [...] 1 Number of other approaches attempted: 0 [facility] Arterial Lineon 01-29-2025 HARMONY Naik CRNA [...] procedure well with no complications. Staffing Performed: [facility] Anesthesiologist: Elías Diaz DO Resident/ADVANCED MANUFACTURING ENGINEER: HARMONY Naik CRNA [facility] BASIC METABOLIC PANELon 01-07 Anion gap [Moles/Vol] 8 mmol/L Normal 3-13 [facility] Comment on above: Performed By: #### L AB113, LAB15, [id number] ####Director Of Home Care Hospice: HIPOLITO WOODS ([phone])[facility])[address] [place] [address] Calcium [Mass/Vol] 9.0 mg/dL Normal 8.8-10.0 [facility] Comment on above: Performed By: #### L AB113, LAB15, [id number] ####Director Of Home Care Hospice: HIPOLITO WOODS ([phone])[facility] ([facility])[address] [place] [address] [place] Chloride [Moles/Vol] 112 mmol/L High 98-107 [facility] Comment on above: Performed By: #### L AB113, LAB15, [id number] ####Director Of Home Care Hospice: HIPOLITO WOODS ([id number])[facility] [place] [address] [place] CO2 [Moles/Vol] 23 mmol/L Normal 23-31 [facility] Comment on above: Performed By: #### L AB113, LAB15, [id number] ####Director Of Home Care Hospice: HIPOLITO WOODS ([phone])[facility])[address] [place] [address] Creatinine [Mass/Vol] 1.05 mg/dL Normal 0.72-1.25 [facility] Comment on above: Performed By: #### L AB113, LAB15, [id number] ####Director Of Home Care Hospice: HIPOLITO WOODS ([phone])[facility])[address] [place] [address] GLOMERULAR FILTRATION RATE ML/MIN/1.73 SQ M.PREDICTED 76.4 mL/min/1.73m*2 Normal >60.0 [facility] Comment on above: Result Comment: Calc ulation based on the Chronic Kidney Disease Epidemiology Collaboration (CKD-EPI) equation refit without adjustment for race Performed By: #### L AB113, LAB15, [id number] ####Director Of Home Care Hospice: HIPOLITO WOODS ([phone])[facility])[address] [place] [address] Glucose [Mass/Vol] 113 mg/dL Normal 82-115 [facility] Comment on above: Performed By: #### L AB113, LAB15, [id number] ####Director Of Home Care Hospice: HIPOLITO WOODS ([phone])[address] Potassium [Moles/Vol] 3.2 mmol/L Low 3.5-5.1 [facility] Comment on above: Result Comment: [facility] potassium values may be up to 0.5 mmol/L lower than serum values. Performed By: #### L AB113, LAB15, [id number] ####Director Of Home Care Hospice: HIPOLITO WOODS ([phone])[facility])[address] [place] [address] [place] Sodium [Moles/Vol] 143 mmol/L Normal 136-145 [facility] Comment on above: Performed By: #### L AB113, LAB15, [id number] ####Director Of Home Care Hospice: HIPOLITO WOODS ([phone])[facility] [place] [address] Urea nitrogen [Mass/Vol] 19 mg/dL Normal 9-23 [facility] Comment on above: Performed By: #### L AB113, LAB15, [id number] ####Director Of Home Care Hospice: HIPOLITO WOODS ([phone])[facility] ([facility])[address] [place] [address] BLOOD GAS ARTERIALon 24-2 025 AMOUNT OF OXYGEN 100 Normal [facility] Comment on above: Performed By: #### L AB76 ####Director Of Home Care Hospice: HIPOLITO WOODS ([phone])[facility] ([facility])[address] [place] [address] Base excess Calc (Bld) [Moles/Vol] -1.1000 mmol/L Normal -3.0-3.0 [facility] Comment on above: Performed By: #### L AB76 ####Director Of Home Care Hospice: HIPOLITO WOODS ([phone])[facility] ([facility])[address] [place] [address] CO2 [Moles/Vol] 24.1 mmol/L Normal 23.0-27.0 [facility] Comment on above: Performed By: #### L AB76 ####Director Of Home Care Hospice: HIPOLITO WOODS ([phone])[facility] ([facility])[address] [place] [address] HCO3 (Bld) [Moles/Vol] 23.0 mmol/L Normal 21.0-25.0 [facility] Comment on above: Performed By: #### L AB76 ####Director Of Home Care Hospice: HIPOLITO WOODS ([phone])[facility] ([facility])[address] [place] [address] Hemoglobin (Bld) [Mass/Vol] 8.3 g/dL Normal Screen only [facility] Comment on above: Performed By: #### L AB76 ####Director Of Home Care Hospice: HIPOLITO WOODS ([phone])[facility] ([facility])[address] [place] [address] OXYGEN SATURATION (%) IN ARTERIAL BLOOD 99.2 % Normal 95.0-100.0 [facility] Comment on above: Performed By: #### L AB76 ####Director Of Home Care Hospice: HIPOLITO WOODS ([phone])[facility])[address] [place] [address] PCO2 ARTERIAL 35.4 mm Hg Normal >35.0-<45.0 [facility] Comment on above: Performed By: #### L AB76 ####Director Of Home Care Hospice: HIPOLITO WOODS ([phone])[facility] ([facility])[address] [place] [address] PH ARTERIAL 7.430 Normal 7.350-7.450 [facility] Comment on above: Performed By: #### L AB76 ####Director Of Home Care Hospice: HIPOLITO WOODS ([phone])[facility] ([facility])[address] [place] [address] PO2 ARTERIAL 324.4 mm Hg High 80.0-100.0 [facility] Comment on above: Performed By: #### L AB76 ####Director Of Home Care Hospice: HIPOLITO WOODS ([phone])[facility])[address] [place] [address] SOURCE OF OXYGEN Ventilator Normal [facility] Comment on above: Performed By: #### L AB76 ####Director Of Home Care Hospice: HIPOLITO WOODS ([phone])[facility] ([facility])[address] [place] [address] BLOOD TYPE AND SCREEN GELon 01-29-2025 ABO GROUPING O Normal [facility] Comment on above: Performed By: #### L AB103, LAB15 #### Director Of Home Care Hospice: HIPOLITO WOODS ([phone]) [facility]) [address] [place] [address] RH TYPE IN BLOOD Positive Normal [facility] Comment on above: Performed By: #### L AB103, LAB15 #### Director Of Home Care Hospice: HIPOLITO WOODS ([phone]) [facility]) [address] [place] [address] Basic metabolic 1998 panelon 01-29-2025 Anion gap [Moles/Vol] 8 mmol/L 3 - 13 mmol/L [facility] Calcium [Mass/Vol] 9 mg/dL 8.8 - 10. 0 mg/dL [facility] Chloride [Moles/Vol] 112 mmol/L High 98 - 10 7 mmol/L [facility] CO2 [Moles/Vol] 23 mmol/L 23 - 31 mmol/L [facility] Creatinine [Mass/Vol] 1.05 mg/dL 0.72 - 1.25 mg/dL [facility] GFR/1.73 sq M.predicted (S/P/Bld) [Vol rate/Area] 76.4 mL/min - PINF [facility] Glucose [Mass/Vol] 113 mg/dL 82 - 115 mg/dL [facility] Interpretation and review of laboratory results Abnormal [facility] Potassium [Moles/Vol] 3.2 mmol/L Low 3.5 - 5.1 mmol/L [facility] Sodium [Moles/Vol] 143 mmol/L 136 - 145 mmol/L [facility] Urea nitrogen [Mass/Vol] 19 mg/dL 9 - 23 mg/d L [facility] Blood type and Crossmatch pa teja (Bld)on 01-29-2025 ABO group Nom (Bld) O [facility] Blood group antibody screen GEL Ql Negative [facility] D Ag Ql (RBC) Positive [facility] CALCIUM, IONIZEDon 5 CALCIUM IONIZED 4.50 mg/dL Normal 4.30-5.20 [facility] Comment on above: Performed By: #### L AB103, LAB15 #### Director Of Home Care Hospice: HIPOLITO WOODS ([phone]) [facility] [address] [place] [address] PH, IONIZED CALCIUM 7.30 Low 7.31-7.46 [facility] Comment on above: Performed By: #### L AB103, LAB15 #### Director Of Home Care Hospice: HIPOLITO WOODS ([phone]) [facility] [address] [place] [address] CALCIUM IONIZED 4.80 mg/dL Normal 4.30-5.20 [facility] Comment on above: Performed By: #### L AB54 ####Director Of Home Care Hospice: HIPOLITO WOODS ([phone])[facility])[address] [place] [address] PH, IONIZED CALCIUM 7.44 Normal 7.31-7.46 [facility] Comment on above: Performed By: #### L AB54 ####Director Of Home Care Hospice: HIPOLITO WOODS ([phone])[facility])[address] [place] [address] CBC (HEMOGRAM)on 01-29-2025 Erythrocyte distribution width (RBC) [Ratio] 12.5 % Normal 11.5-15.0 [facility] Comment on above: Performed By: #### L AB294 #### Director Of Home Care Hospice: HIPOLITO WOODS ([phone]) [facility]) [address] [place] [address] Hematocrit (Bld) [Volume fraction] 29.2 % Low 40.0-52.0 [facility] Comment on above: Performed By: #### L AB294 #### Director Of Home Care Hospice: HIPOLITO WOODS ([phone]) [facility]) [address] [place] [address] Hemoglobin (Bld) [Mass/Vol] 9.6 g/dL Low 13.0-18.0 [facility] Comment on above: Performed By: #### L AB294 #### Director Of Home Care Hospice: HIPOLITO WOODS ([phone]) [facility]) [address] [place] [address] MCH (RBC) [Entitic mass] 31.3 pg Normal 26.0-34.0 [facility] Comment on above: Performed By: #### L AB294 #### Director Of Home Care Hospice: HIPOLITO WOODS ([phone]) [facility]) [address] [place] [address] MCHC 32.9 % Normal 30.5-36.0 [facility] Comment on above: Performed By: #### L AB294 #### Director Of Home Care Hospice: HIPOLITO WOODS ([phone]) [facility] [address] [place] [address] MCV (RBC) [Entitic vol] 95.1 fL Normal 77.0-99.0 S [facility] Comment on above: Performed By: #### L AB294 #### Director Of Home Care Hospice: HIPOLITO WOODS ([phone]) [facility] ([facility]) [address] [place] [address] Platelet mean volume (Bld) [Entitic vol] 11.0 fL Normal 9.0-12.7 [facility] Comment on above: Performed By: #### L AB294 #### Director Of Home Care Hospice: HIPOLITO WOODS ([phone]) [facility] ([facility]) [address] [place] [address] Platelets (Bld) [#/Vol] 164 10*3/uL Normal 140-440 [facility] Comment on above: Performed By: #### L AB294 #### Director Of Home Care Hospice: HIPOLITO WOODS ([phone]) [facility] ([facility]) [address] [place] [address] RBC (Bld) [#/Vol] 3.07 10*6/uL Low 4.40-5.90 [facility] Comment on above: Performed By: #### L AB294 #### Director Of Home Care Hospice: HIPOLITO WOODS ([phone]) [facility]) [address] [place] [address] WBC (Bld) [#/Vol] 9.8 10*3/uL Normal 3.6-10.7 [facility] Comment on above: Performed By: #### L AB294 #### Director Of Home Care Hospice: HIPOLITO WOODS ([phone]) [facility]) [address] [place] [address] Erythrocyte distribution width (RBC) [Ratio] 12.5 % Normal 11.5-15.0 [facility] Comment on above: Performed By: #### L AB103, LAB15 #### Director Of Home Care Hospice: HIPOLITO WOODS ([phone]) [facility] ([facility]) [address] [place] [address] Hematocrit (Bld) [Volume fraction] 23.9 % Low 40.0-52.0 [facility] Comment on above: Performed By: #### L AB103, LAB15 #### Director Of Home Care Hospice: HIPOLITO WOODS ([phone]) [facility]) [address] [place] [address] Hemoglobin (Bld) [Mass/Vol] 8.0 g/dL Low 13.0-18.0 [facility] Comment on above: Performed By: #### L AB103, LAB15 #### Director Of Home Care Hospice: HIPOLITO WOODS ([phone]) [facility] ([facility]) [address] [place] [address] MCH (RBC) [Entitic mass] 31.3 pg Normal 26.0-34.0 [facility] Comment on above: Performed By: #### L AB103, LAB15 #### Director Of Home Care Hospice: HIPOLITO WOODS ([phone]) [facility] ([facility]) [address] [place] [address] MCHC 33.5 % Normal 30.5-36.0 [facility] Comment on above: Performed By: #### L AB103, LAB15 #### Director Of Home Care Hospice: HIPOLITO WOODS ([phone]) [facility]) [address] [place] [address] MCV (RBC) [Entitic vol] 93.4 fL Normal 77.0-99.0 [facility] Comment on above: Performed By: #### L AB103, LAB15 #### Director Of Home Care Hospice: HIPOLITO WOODS ([phone]) [facility] ([facility]) [address] [place] [address] Platelet mean volume (Bld) [Entitic vol] 11.2 fL Normal 9.0-12.7 [facility] Comment on above: Performed By: #### L AB103, LAB15 #### Director Of Home Care Hospice: HIPOLITO WOODS ([phone]) [facility]) [address] [place] [address] [place] Platelets (Bld) [#/Vol] 169 10*3/uL Normal 140-440 [facility] Comment on above: Performed By: #### L AB103, LAB15 #### Director Of Home Care Hospice: HIPOLITO WOODS ([phone]) [facility]) [address] [place] [address] RBC (Bld) [#/Vol] 2.56 10*6/uL Low 4.40-5.90 [facility] Comment on above: Performed By: #### L AB103, LAB15 #### Director Of Home Care Hospice: HIPOLITO WOODS ([phone]) [facility] ([facility]) [address] [place] [address] WBC (Bld) [#/Vol] 7.6 10*3/uL Normal 3.6-10.7 [facility] Comment on above: Performed By: #### L AB103, LAB15 #### Director Of Home Care Hospice: HIPOLITO WOODS ([phone]) [facility]) [address] [place] [address] Erythrocyte distribution width (RBC) [Ratio] 12.4 % Normal 11.5-15.0 [facility] Comment on above: Performed By: #### L AB294 ####Director Of Home Care Hospice: HIPOLITO WOODS ([phone])[facility])[address] [place] [address] Hematocrit (Bld) [Volume fraction] 37.9 % Low 40.0-52.0 [facility] Comment on above: Performed By: #### L AB294 ####Director Of Home Care Hospice: HIPOLITO WOODS ([phone])[facility])[address] [place] [address] Hemoglobin (Bld) [Mass/Vol] 12.9 g/dL Low 13.0-18.0 [facility] Comment on above: Performed By: #### L AB294 ####Director Of Home Care Hospice: HIPOLITO WOODS ([phone])[facility])[address] [place] [address] MCH (RBC) [Entitic mass] 30.9 pg Normal 26.0-34.0 [facility] Comment on above: Performed By: #### L AB294 ####Director Of Home Care Hospice: HIPOLITO WOODS ([phone])[facility])[address] [place] [address] MCHC 34.0 % Normal 30.5-36.0 [facility] Comment on above: Performed By: #### L AB294 ####Director Of Home Care Hospice: HIPOLITO WOODS ([phone])[facility])[address] [place] [address] MCV (RBC) [Entitic vol] 90.9 fL Normal 77.0-99.0 [facility] Comment on above: Performed By: #### L [id number] ####Director Of Home Care Hospice: HIPOLITO WOODS ([phone])[facility])[address] [place] [address] Platelet mean volume (Bld) [Entitic vol] 10.9 fL Normal 9.0-12.7 [facility] Comment on above: Performed By: #### L [id number] ####Director Of Home Care Hospice: HIPOLITO WOODS ([phone])[facility] ([facility])[address] [place] [address] Platelets (Bld) [#/Vol] 261 10*3/uL Normal 140-440 [facility] Comment on above: Performed By: #### L [id number] ####Director Of Home Care Hospice: HIPOLITO WOODS ([phone])[facility])[address] [place] [address] RBC (Bld) [#/Vol] 4.17 10*6/uL Low 4.40-5.90 [facility] Comment on above: Performed By: #### L [id number] ####Director Of Home Care Hospice: HIPOLITO WOODS ([phone])[facility])[address] [place] [address] WBC (Bld) [#/Vol] 5.5 10*3/uL Normal 3.6-10.7 [facility] Comment on above: Performed By: #### L [id number] ####Director Of Home Care Hospice: HIPOLITO WOODS ([phone])[facility] ([address] CBC panel Auto (Bld)on 01-29 Erythrocyte distribution width (RBC) [Ratio] 12.5 % 11.5 - 15.0 % [facility] Hematocrit (Bld) [Volume fraction] 29.2 % Low 40.0 - 52.0 % [facility] Hemoglobin (Bld) [Mass/Vol] 9.6 g/dL Low 13.0 - 18.0 g/dL [facility] Interpretation and review of laboratory results Abnormal [facility] MCH (RBC) [Entitic mass] 31.3 pg 26. 0 - 34.0 pg [facility] MCHC (RBC) [Mass/Vol] 32.9 % 30.5 - 36.0 % [facility] MCV (RBC) [Entitic vol] 95.1 fL 77.0 - 99.0 fL [facility] Platelet mean volume (Bld) [Entitic vol] 11 fL 9.0 - 12.7 fL [facility] Platelets (Bld) [#/Vol] 164 10*3/uL 140 - 440 10*3/uL [facility] RBC (Bld) [#/Vol] 3.07 10*6/uL Low 4.40 - 5.9 0 10*6/uL [facility] WBC (Bld) [#/Vol] 9.8 10*3/uL 3.6 - 10.7 10*3/uL [facility] Erythrocyte distribution width (RBC) [Ratio] 12.4 % 11.5 - 15.0 % [facility] Hematocrit (Bld) [Volume fraction] 37.9 % Low 40.0 - 52.0 % [facility] Hemoglobin (Bld) [Mass/Vol] 12.9 g/dL Low 13.0 - 18.0 g/dL [facility] Interpretation and review of laboratory results Abnormal [facility] th MCH (RBC) [Entitic mass] 30.9 pg 26. 0 - 34.0 pg [facility] MCHC (RBC) [Mass/Vol] 34 % 30.5 - 36.0 % [facility] MCV (RBC) [Entitic vol] 90.9 fL 77.0 - 99.0 fL [facility] Platelet mean volume (Bld) [Entitic vol] 10.9 fL 9.0 - 12.7 fL [facility] Platelets (Bld) [#/Vol] 261 10*3/uL 140 - 440 10*3/uL [facility] RBC (Bld) [#/Vol] 4.17 10*6/uL Low 4.40 - 5.9 0 10*6/uL [facility] WBC (Bld) [#/Vol] 5.5 10*3/uL 3.6 - 10.7 10*3/uL [facility] CBC panel Auto (Bld)Ordered By: Fara Moise on 01-29-2025 Erythrocyte distribution width (RBC) [Ratio] 12.5 % 11.5 - 15.0 % [facility] Hematocrit (Bld) [Volume fraction] 23.9 % Low 40.0 - 52.0 % [facility] Hemoglobin (Bld) [Mass/Vol] 8 g/dL Low 13.0 - 18.0 g/dL [facility] Interpretation and review of laboratory results Abnormal [facility] MCH (RBC) [Entitic mass] 31.3 pg 26. 0 - 34.0 pg [facility] MCHC (RBC) [Mass/Vol] 33.5 % 30.5 - 36.0 % [facility] MCV (RBC) [Entitic vol] 93.4 fL 77.0 - 99.0 fL [facility] Platelet mean volume (Bld) [Entitic vol] 11.2 fL 9.0 - 12.7 fL [facility] Platelets (Bld) [#/Vol] 169 10*3/uL 140 - 440 10*3/uL [facility] RBC (Bld) [#/Vol] 2.56 10*6/uL Low 4.40 - 5.9 0 10*6/uL [facility] WBC (Bld) [#/Vol] 7.6 10*3/uL 3.6 - 10.7 10*3/uL [facility] COMPREHENSIVE METABOLIC PANE Anthony 01-29-2025 Albumin [Mass/Vol] 3.7 g/dL Normal 3.4-4.8 [facility] Comment on above: Performed By: #### L AB17, [id number] ####Director Of Home Care Hospice: HIPOLITO WOODS ([phone])[facility] [place] [address] [place] ALP [Catalytic activity/Vol] 38 U/L Low 40-150 [facility] Comment on above: Performed By: #### L AB17, [id number] ####Director Of Home Care Hospice: HIPOLITO WOODS ([phone])[facility] [place] [address] [place] ALT [Catalytic activity/Vol] 6 U/L Normal <40 [facility] Comment on above: Performed By: #### L AB17, [id number] ####Director Of Home Care Hospice: HIPOLITO WOODS ([phone])[facility] ([facility])[address] [place] [address] Anion gap [Moles/Vol] 11 mmol/L Normal 3-13 [facility] Comment on above: Performed By: #### L AB17, [id number] ####Director Of Home Care Hospice: HIPOLITO WOODS ([phone])[facility] ([facility])[address] [place] [address] AST [Catalytic activity/Vol] 29 U/L Normal <34 [facility] Comment on above: Performed By: #### L AB17, [id number] ####Director Of Home Care Hospice: HIPOLITO WOODS ([phone])[facility] ([facility])[address] [place] [address] Bilirubin [Mass/Vol] 0.9 mg/dL Normal <1.2 [facility] Comment on above: Performed By: #### L AB17, [id number] ####Director Of Home Care Hospice: HIPOLITO WOODS ([phone])[facility] ([facility])[address] [place] [address] Calcium [Mass/Vol] 8.7 mg/dL Low 8.8-10.0 [facility] Comment on above: Performed By: #### L AB17, [id number] ####Director Of Home Care Hospice: HIPOLITO WOODS ([phone])[facility] ([facility])[address] [place] [address] [place] Chloride [Moles/Vol] 109 mmol/L High 98-107 [facility] Comment on above: Performed By: #### L AB17, [id number] ####Director Of Home Care Hospice: HIPOLITO WOODS ([phone])[facility])[address] [place] [address] CO2 [Moles/Vol] 23 mmol/L Normal 23-31 [facility] Comment on above: Performed By: #### L AB17, [id number] ####Director Of Home Care Hospice: HIPOLITO WOODS ([phone])[facility])[address] [place] [address] Creatinine [Mass/Vol] 1.12 mg/dL Normal 0.72-1.25 [facility] Comment on above: Performed By: #### L AB17, [id number] ####Director Of Home Care Hospice: HIPOLITO WOODS ([phone])[facility])[address] [place] [address] GLOMERULAR FILTRATION RATE ML/MIN/1.73 SQ M.PREDICTED 70.7 mL/min/1.73m*2 Normal >60.0 [facility] Comment on above: Result Comment: Calc ulation based on the Chronic Kidney Disease Epidemiology Collaboration (CKD-EPI) equation refit without adjustment for race Performed By: #### L AB17, [id number] ####Director Of Home Care Hospice: HIPOLITO WOODS ([phone])[facility])[address] [place] [address] Glucose [Mass/Vol] 139 mg/dL High 82-115 [facility] Comment on above: Performed By: #### L AB17, [id number] ####Director Of Home Care Hospice: HIPOLITO WOODS ([phone])[facility])[address] [place] [address] [place] Potassium [Moles/Vol] 3.1 mmol/L Low 3.5-5.1 [facility] Comment on above: Result Comment: [facility] potassium values may be up to 0.5 mmol/L lower than serum values. Performed By: #### L AB17, [id number] ####Director Of Home Care Hospice: HIPOLITO WOODS ([phone])[facility])[address] [place] [address] Protein [Mass/Vol] 5.2 g/dL Low 6.4-8.3 [facility] Comment on above: Performed By: #### L AB17, [id number] ####Director Of Home Care Hospice: HIPOLITO WOODS ([phone])[facility] ([facility])[address] [place] [address] Sodium [Moles/Vol] 143 mmol/L Normal 136-145 [facility] Comment on above: Performed By: #### L AB17, [id number] ####Director Of Home Care Hospice: HIPOLITO WOODS ([phone])[facility])[address] [place] [address] Urea nitrogen [Mass/Vol] 20 mg/dL Normal 9-23 [facility] Comment on above: Performed By: #### L AB17, [id number] ####Director Of Home Care Hospice: HIPOLITO WOODS ([phone])[facility])[address] [place] [address] Albumin [Mass/Vol] 3.7 g/dL Normal 3.4-4.8 [facility] Comment on above: Performed By: #### L AB17 ####Director Of Home Care Hospice: HIPOLITO WOODS ([phone])[facility] ([facility])[address] [place] [address] ALP [Catalytic activity/Vol] 62 U/L Normal 40-150 [facility] Comment on above: Performed By: #### L AB17 ####Director Of Home Care Hospice: HIPOLITO WOODS ([phone])[facility])[address] [place] [address] [place] ALT [Catalytic activity/Vol] 19 U/L Normal <40 [facility] Comment on above: Performed By: #### L AB17 ####Director Of Home Care Hospice: HIPOLITO WOODS ([phone])[facility])[address] [place] [address] Anion gap [Moles/Vol] 7 mmol/L Normal 3-13 [facility] Comment on above: Performed By: #### L AB17 ####Director Of Home Care Hospice: HIPOLITO WOODS ([phone])[facility] [place] [address] [place] AST [Catalytic activity/Vol] 22 U/L Normal <34 [facility] Comment on above: Performed By: #### L [id number] ####Director Of Home Care Hospice: HIPOLITO WOODS ([phone])[facility] [place] [address] [place] Bilirubin [Mass/Vol] 0.6 mg/dL Normal <1.2 [facility] Comment on above: Performed By: #### L [id number] ####Director Of Home Care Hospice: HIPOLITO WOODS ([phone])[facility] ([facility])[address] [place] [address] Calcium [Mass/Vol] 9.0 mg/dL Normal 8.8-10.0 [facility] Comment on above: Performed By: #### L [id number] ####Director Of Home Care Hospice: HIPOLITO WOODS ([phone])[facility] [place] [address] [place] Chloride [Moles/Vol] 108 mmol/L High 98-107 [facility] Comment on above: Performed By: #### L [id number] ####Director Of Home Care Hospice: HIPOLITO WOODS ([phone])[facility])[address] [place] [address] [place] CO2 [Moles/Vol] 25 mmol/L Normal 23-31 [facility] Comment on above: Performed By: #### L [id number] ####Director Of Home Care Hospice: HIPOLITO WOODS ([phone])[facility])[address] [place] [address] [place] Creatinine [Mass/Vol] 1.21 mg/dL Normal 0.72-1.25 [facility] Comment on above: Performed By: #### L [id number] ####Director Of [facility] Care Hospice: HIPOLITO WOODS ([phone])[facility] [place] [address] [place] GLOMERULAR FILTRATION RATE ML/MIN/1.73 SQ M.PREDICTED 64.4 mL/min/1.73m*2 Normal >60.0 [facility] Comment on above: Result Comment: Calc ulation based on the Chronic Kidney Disease Epidemiology Collaboration (CKD-EPI) equation refit without adjustment for race Performed By: #### L [id number] ####Director Of Home Care Hospice: HIPOLITO WOODS ([phone])[facility])[address] [place] [address] Glucose [Mass/Vol] 171 mg/dL High 82-115 [facility] Comment on above: Performed By: #### L AB17 ####Director Of Home Care Hospice: HIPOLITO WOODS ([phone])[facility])[address] [place] [address] Potassium [Moles/Vol] 3.4 mmol/L Low 3.5-5.1 [facility] Comment on above: Result Comment: [facility] potassium values may be up to 0.5 mmol/L lower than serum values. Performed By: #### L [id number] ####Director Of Home Care Hospice: HIPOLITO WOODS ([phone])[facility])[address] [place] [address] Protein [Mass/Vol] 6.5 g/dL Normal 6.4-8.3 [facility] Comment on above: Performed By: #### L [id number] ####Director Of Home Care Hospice: HIPOLITO WOODS ([phone])[facility])[address] [place] [address] Sodium [Moles/Vol] 140 mmol/L Normal 136-145 [facility] Comment on above: Performed By: #### L [id number] ####Director Of Home Care Hospice: HIPOLITO WOODS ([phone])[facility])[address] [place] [address] [place] Urea nitrogen [Mass/Vol] 21 mg/dL Normal 9-23 [facility] Comment on above: Performed By: #### L [id number] ####Director Of Home Care Hospice: HIPOLITO WOODS ([phone])[facility])[address] [place] [address] Calcium.ionized [Moles/Vol]O rdered By: Meryl Buitrago on 01-29-2025 Calcium.ionized (Bld) [Moles/Vol] 4.5 mg/dL 4.30 - 5.20 mg/dL [facility] Interpretation and review of laboratory results Abnormal [facility] PH, IONIZED CALCIUM 7.3 Low 7.31 - 7.46 [facility] Calcium.ionized [Moles/Vol]o n 01-29-2025 Calcium.ionized (Bld) [Moles/Vol] 4.8 mg/dL 4.30 - 5.20 mg/dL [facility] Interpretation and review of laboratory results Normal [facility] PH, IONIZED CALCIUM 7.44 7.31 - 7.46 [facility] Venous Lineon 2024 HARMONY [...] SRNA and anesthesiologist Anesthesiologist: Elías Diaz DO [facility] Comprehensive metabolic 1998 panelon 01-29-2025 Albumin [Mass/Vol] 3.7 g/dL 3.4 - 4.8 g/dL [facility] ALP [Catalytic activity/Vol] 38 U/L Low 40 - 150 U/L [facility] ALT [Catalytic activity/Vol] 6 U/L NINF - 40 U/L [facility] Anion gap [Moles/Vol] 11 mmol/L 3 - 13 mmol/L [facility] AST [Catalytic activity/Vol] 29 U/L NINF - 34 U/L [facility] Bilirubin [Mass/Vol] 0.9 mg/dL NINF - 1.2 mg/dL [facility] Calcium [Mass/Vol] 8.7 mg/dL Low 8.8 - 10. 0 mg/dL [facility] Chloride [Moles/Vol] 109 mmol/L High 98 - 10 7 mmol/L [facility] CO2 [Moles/Vol] 23 mmol/L 23 - 31 mmol/L [facility] Creatinine [Mass/Vol] 1.12 mg/dL 0.72 - 1.25 mg/dL [facility] GFR/1.73 sq M.predicted (S/P/Bld) [Vol rate/Area] 70.7 mL/min - PINF [facility] Glucose [Mass/Vol] 139 mg/dL High 82 - 115 mg/dL [facility] Interpretation and review of laboratory results Abnormal [facility] Potassium [Moles/Vol] 3.1 mmol/L Low 3.5 - 5.1 mmol/L [facility] Protein [Mass/Vol] 5.2 g/dL Low 6.4 - 8.3 g/dL [facility] Sodium [Moles/Vol] 143 mmol/L 136 - 145 mmol/L [facility] Urea nitrogen [Mass/Vol] 20 mg/dL 9 - 23 mg/d L [facility] Albumin [Mass/Vol] 3.7 g/dL 3.4 - 4.8 g/dL [facility] ALP [Catalytic activity/Vol] 62 U/L 40 - 150 U/L [facility] ALT [Catalytic activity/Vol] 19 U/L NINF - 40 U/L [facility] Anion gap [Moles/Vol] 7 mmol/L 3 - 13 mmol/L [facility] AST [Catalytic activity/Vol] 22 U/L NINF - 34 U/L [facility] Bilirubin [Mass/Vol] 0.6 mg/dL NINF - 1.2 mg/dL [facility] Calcium [Mass/Vol] 9 mg/dL 8.8 - 10. 0 mg/dL [facility] Chloride [Moles/Vol] 108 mmol/L High 98 - 10 7 mmol/L [facility] CO2 [Moles/Vol] 25 mmol/L 23 - 31 mmol/L [facility] Creatinine [Mass/Vol] 1.21 mg/dL 0.72 - 1.25 mg/dL [facility] GFR/1.73 sq M.predicted (S/P/Bld) [Vol rate/Area] 64.4 mL/min - PINF [facility] Glucose [Mass/Vol] 171 mg/dL High 82 - 115 mg/dL [facility] Interpretation and review of laboratory results Abnormal [facility] Potassium [Moles/Vol] 3.4 mmol/L Low 3.5 - 5.1 mmol/L [facility] Protein [Mass/Vol] 6.5 g/dL 6.4 - 8.3 g/dL [facility] Sodium [Moles/Vol] 140 mmol/L 136 - 145 mmol/L [facility] Urea nitrogen [Mass/Vol] 21 mg/dL 9 - 23 mg/d L [facility] Consulton 01-29-2025 Consult - Attestation signed by Sunny Youssef DO at 01/29/2025 6:18 PM I have personally performed a lmab-ul-xduq diagnostic evaluation on this patient on date of service 01/29/25. History, labs, imaging studies, and electronic medical record have been reviewed by me. This note documented by the []Critical Care Fellow []retail warehouse supervisor [x]KIM reflects my history, exam, and medical [...] other team members and physicians, excluding procedures. [facility]: Critical Care Consultation Note Date: 01/29/25 [...] occlude nasal passage. 01/14/25 Yes Angela Mandel, ASSOCIATE TRAINER - [employer] cholecalciferol (Vitamin D-3) 50 MCG (1999) capsule Take 50 mcg by mouth daily. 12/11/24 Historical Provider, coenzyme Q-10 100 MG capsule Take 100 mg by mouth daily. 12/11/24 Historical Provi (more content not included)... Normal [facility] ECG 12-LEADon 01-29-2025 ECG 12-LEAD IMPRESSION: Sinus rhythm Borderline prolonged MI interval NS ST changes diffusely Electronically Signed On 01-29-2025 16:38:12 EDT by Lorne Staton Normal [facility] FIBRINOGENon 01-29-2025 FIBRINOGEN 116 mg/dL Low 200-400 [facility] Comment on above: Performed By: #### L [id number], [id number] ####Director Of Home Care Hospice: HIPOLITO WOODS ([phone])[address] FIBRINOGEN 105 mg/dL Low 200-400 [facility] Comment on above: Performed By: #### L [id number], [id number] ####Director Of Home Care Hospice: HIPOLITO WOODS ([phone])[facility] ([facility])[address] [place] [address] Fibrinogen Coag (PPP) [Mass/ Vol]Ordered By: Chloe Finch on 01-29-2025 Interpretation and review of laboratory results Abnormal [facility] Fibrinogen Coag (PPP) [Mass/ Vol]on 01-29-2025 Interpretation and review of laboratory results Abnormal [facility] Laboratory - Chemistry and C hemistry - challengeon 01-29-2025 Glucose [Mass/Vol] 206 mg/dL High 70 - 100 mg/dL [facility] Glucose [Mass/Vol] 225 mg/dL High 70 - 100 mg/dL [facility] Glucose [Mass/Vol] 230 mg/dL High 70 - 100 mg/dL [facility] Glucose [Mass/Vol] 218 mg/dL High 70 - 100 mg/dL [facility] Magnesium [Mass/Vol] 2.1 mg/dL 1.6 - 2 .6 mg/dL [facility] Glucose [Mass/Vol] 109 mg/dL High 70 - 100 mg/dL [facility] Glucose [Mass/Vol] 94 mg/dL 70 - 100 mg/dL [facility] Magnesium [Mass/Vol] 2.7 mg/dL High 1.6 - 2 .6 mg/dL [facility] Glucose [Mass/Vol] 111 mg/dL High 70 - 100 mg/dL [facility] Glucose [Mass/Vol] 167 mg/dL High 70 - 100 mg/dL [facility] Laboratory - Chemistry and C hemistry - challengeOrdered By: Vdia Mcdaniel on 01-29-2025 Base excess Calc (Bld) [Moles/Vol] -1.1000 mmol/L -3.0 - 3.0 mmol/L [facility] CO2 (Bld) [Partial pressure] 35.4 mm[Hg] - PINF [facility] CO2 [Moles/Vol] 24.1 mmol/L 23.0 - 27.0 mmol/L [facility] HCO3 (Bld) [Moles/Vol] 23 mmol/L 21.0 - 25.0 mmol/L [facility] Oxygen (Bld) [Partial pressure] 324.4 mm[Hg] High [facility] pH (Bld) 7.43 [pH] 7.350 - 7.450 [facility] Laboratory - CoagulationOrde red By: Chloe Finch on 01-29-2025 Fibrinogen Coag (PPP) [Mass/Vol] 116 mg/dL Low 200 - 400 mg/dL [facility] Laboratory - Coagulationon 0 01-29-2025 aPTT Coag (PPP) [Time] 29 s 20.0 - 30.5 s [facility] INR Coag (PPP) [Relative time] 1.3 {INR} High 0.9 - 1.1 [facility] PT Coag (Bld) [Time] 13.8 s High 9.0 - 12.0 s [facility] Fibrinogen Coag (PPP) [Mass/Vol] 105 mg/dL Low 200 - 400 mg/dL [facility] aPTT Coag (PPP) [Time] 30.5 s 20.0 - 30.5 s [facility] INR Coag (PPP) [Relative time] 1.6 {INR} High 0.9 - 1.1 [facility] PT Coag (Bld) [Time] 16.2 s High 9.0 - 12.0 s [facility] aPTT Coag (PPP) [Time] 27.4 s 20.0 - 30.5 s [facility] INR Coag (PPP) [Relative time] 1.1 {INR} 0.9 - 1.1 [facility] PT Coag (Bld) [Time] 11.5 s 9.0 - 12.0 s [facility] Laboratory - Hematology and Cell countsOrdered By: Vida Mcdaniel on 01-29-2025 Hemoglobin (Bld) [Mass/Vol] 8.3 g/dL 7.0 g/dl [facility] MAGNESIUMon 01-29-2025 Magnesium [Mass/Vol] 2.1 mg/dL Normal 1.6-2.6 [facility] Comment on above: Result Comment: TOM Peterson COMMENTS: Higher values can be expected in females during menses. Performed By: #### L [id number], [id number] ####Director Of Home Care Hospice: HIPOLITO WOODS ([phone])[address] Magnesium [Mass/Vol] 2.7 mg/dL High 1.6-2.6 [facility] Comment on above: Result Comment: TOM Peterson COMMENTS: Higher values can be expected in females during menses. Performed By: #### L [id number], [id number], [id number] ####Director Of Home Care Hospice: HIPOLITO WOODS ([phone])[facility])[address] [place] [address] Magnesium [Mass/Vol]on 01-29 Interpretation and review of laboratory results Normal [facility] Interpretation and review of laboratory results Abnormal [facility] No Panel Informationon 01-29 Interpretation and review of laboratory results Abnormal [facility] Interpretation and review of laboratory results Abnormal [facility] Interpretation and review of laboratory results Abnormal [facility] Interpretation and review of laboratory results Abnormal [facility] Interpretation and review of laboratory results Abnormal [facility] Interpretation and review of laboratory results Abnormal [facility] Interpretation and review of laboratory results Normal [facility] CV EPIPHANY [facility] Interpretation and review of laboratory results Abnormal [facility] Interpretation and review of laboratory results Abnormal [facility] Interpretation and review of laboratory results Normal [facility] Interpretation and review of laboratory results Abnormal [facility] No Panel InformationOrdered By: Lorne Staton on 01-29-2025 P [place] 86 degrees [facility] Work Phone: [phone] MI Interval 215 ms [facility] Work Phone: QRS [place] 58 degrees [facility] Work Phone: [phone] QRSD Interval 111 ms [facility] h Work Phone: QT Interval 456 ms [facility] Work Phone: QTC Interval 473 ms [facility] Work Phone: [phone] T Wave [place] 0 degrees [facility] Work Phone: [phone] [facility] Work Phone: [phone] No Panel InformationOrdered By: Vida Mcdaniel on 01-29-2025 Amount Of Oxygen 100 [facility] Interpretation and review of laboratory results Abnormal [facility] Source Of Oxygen Ventilator [facility] Nursing Noteon 01-29-2025 Nursing Note Stop sign placed at computer Normal [facility] Op Noteon 01-29-2025 Op Note Cardiothoracic Surgery [...] intraoperative transesophageal echocardiography Surgeon: Ronnie Herrera MD Shear Tender(s): [] Alex Sims [] Juan Leong [x] [...] right coronary artery (with collateral reconstitution via lvpk-td-awrmd collaterals), and 90% stenosis at the ostium [...] protected. An appropriate timeout was conducted. [facility] Bypass: A LEFT [...] was admini (more content not included)... Normal [facility] PHOSPHORUSon 01-29-2025 Phosphate [Mass/Vol] 2.4 mg/dL Normal 2.3-4.7 [facility] Comment on above: Performed By: #### L [id number], [id number], [id number] ####Director Of Home Care Hospice: HIPOLITO WOODS ([phone])[address] PROTIME AND APTTon aPTT Coag (Bld) [Time] 29.0 s Normal 20.0-30.5 [facility] Comment on above: Performed By: #### L [id number], [id number] ####Director Of Home Care Hospice: HIPOLITO WOODS ([phone])[facility] ([facility])[address] [place] [address] INR Coag (PPP) [Relative time] 1.3 {INR} High 0.9-1.1 [facility] Comment on above: Result Comment: Mino mmended [...] Myocardial Infarction Performed By: #### L [id number], [id number] ####Director Of Home Care Hospice: HIPOLITO WOODS ([phone])[facility])[address] [place] [address] PT Coag (PPP) [Time] 13.8 s High 9.0-12.0 [facility] Comment on above: Performed By: #### L [id number], [id number] ####Director Of Home Care Hospice: HIPOLITO WOODS ([phone])[address] aPTT Coag (Bld) [Time] 30.5 s Normal 20.0-30.5 [facility] Comment on above: Performed By: #### L [id number], [id number] ####Director Of Home Care Hospice: HIPOLITO WOODS ([id number])[address] INR Coag (PPP) [Relative time] 1.6 {INR} High 0.9-1.1 [facility] Comment on above: Result Comment: Mino mmended [...] prevent Myocardial Infarction Performed By: #### L [id number], [id number] ####Director Of Home Care Hospice: HIPOLITO WOODS ([phone])[facility])[address] [place] [address] PT Coag (PPP) [Time] 16.2 s High 9.0-12.0 [facility] Comment on above: Performed By: #### L [id number], [id number] ####Director Of Home Care Hospice: HIPOLITO WOODS ([phone])[facility] ([facility])[address] [place] [address] aPTT Coag (Bld) [Time] 27.4 s Normal 20.0-30.5 [facility] Comment on above: Performed By: #### L AB103, LAB15 #### Director Of Home Care Hospice: HIPOLITO WOODS ([phone]) [facility] ([facility]) [address] [place] [address] INR Coag (PPP) [Relative time] 1.1 {INR} Normal 0.9-1.1 [facility] Comment on above: Result Comment: Mino mmended [...] Performed By: #### Curly [id number], LAB15 #### Director Of Home Care Hospice: HIPOLITO WOODS ([phone]) [facility] ([facility]) [address] [place] [address] PT Coag (PPP) [Time] 11.5 s Normal 9.0-12.0 [facility] Comment on above: Performed By: #### Curly [id number], LAB15 #### Director Of Home Care Hospice: HIPOLITO WOODS ([phone]) [facility] ([facility]) [address] [place] [address] Phosphate [Moles/Vol]on 01-07 Interpretation and review of laboratory results Normal [facility] Phosphate [Mass/Vol] 2.4 mg/dL 2.3 - 4 .7 mg/dL [facility] Vital signsOrdered By: Lorne Staton on 01-29-2025 Heart rate 65 /min bpm [facility] Work Phone: XR CHEST 1 VIEWon 01-29-2025 [...] Electronically Signed Date/Time: 01/29/2025 8:54 PM EDT [facility] XR CHEST 1 VIEW Patient Name: RYAN [...] is below the hemidiaphragm but excluded from [id number]. A mediastinal drain and bilateral chest tubes [...] Signed Date/Time: 01/29/2025 5:31 PM EDT Normal [facility] XR Chest Single viewon 01-29 [facility] RADIOLOGY [facility] Radiology Study observation (narrative) Theodore Morgan alth [facility] Radiology Study observation (narrative) Summangie Morgan alth XR Chest Single viewOrdered By: Tony Ziegler on 01-29-2025 [facility] Work Phone: XR Chest Single viewOrdered By: Angela Arias on 01-29-2025 [facility] Work Phone: Carotid Duplex Ultrasoundon 01-23-2025 Carotid Duplex Ultrasound [facility] [address] [place] [address] Carotid Duplex Ultrasound 01/23/25 0811 MR#: [id number] Acct: [id number] Name: RYAN MACEDO Rep #: [id number] : 1955 69 From: Ke Zapata MD [...] the left vertebral artery. Procedure Carotid Duplex 13653. This is a Carotid Duplex examination using [...] Date Dictated: 01/23/2511 Date Transcribed: 01/23/25 132 Senior Safety Support Manager: Signed [facility] Duplex ultrasound of carotid artery reportOrdered By: Ke Zapata on 01-23-2025 Study report [facility] [address] [place] [address] Carotid Duplex Ultrasound 01/23/25 0811 MR#: [id number] Acct: [id number] Name: RYAN MACEDO Rep #:[id number] : [...] the left vertebral artery. Procedure Carotid Duplex 74035. This is a Carotid Duplex examination using [...] Dictated: 01/23/25 0811 Date Transcribed: 01/23/25 1327 Senior Safety Support Manager: Signed [facility] Work Phone: [phone] 01-20-2025 [id number] Medication List Accurate as of January 20, [...] THINNERS OR ASPIRIN: CONTINUE TAKING YOUR ASPIRIN supervisor mill Hibiclens (chlorahexadine soap) from any pharmacy or [...] opt for a zero sugar fluid. PARKING: MANAGER STAFFING AND PARKING IN THE MAIN DECK ARE [...] SAME DAY DESK AND CHECK IN. Normal [facility] 36on 01-16-2025 36 Patient had the TTE done at [facility] today, having carotid US done 01/23 at [facility]. Exam requests canceled at [facility] sent 01/16 LAR [facility] Echo Completeon 01-16-2025 Echo Complete [facility] [address] [place] [address] Echo Complete 01/16/25 1309 MR#: [id number] Acct: [id number] Name: RYAN MACEDO Rep #: [id number] : 1955 69 From: Stone Williamson MD Attending Dr: Dr. Ronnie Herrera MD Status: DEP CLI Ordering Dr: Ronnie Herrera MD Date: 01/16/25 Location: [facility] Sex: M C Admitted: Reason For Study [...] Date Dictated: 01/16/25 1309 Date Transcribed: 01/22/25637 Senior Safety Support Manager: Signed [facility] 36on 01-14-2025 36 Surg proc orders placed Angela Mandel APRN - [employer] 09/09/25 [facility] Progress Noteon 01-14-2025 Progress Note Pre op teaching done with patient. Instructed to hold NSAIDS 7 days prior to surgery. All other medications per [facility] protocol. Pharmacy confirmed. All questions answered. Normal [facility] Progress Note [facility] CARDIOVASCULAR & THORACIC SURGERY [address] COUNTS INCLUDE [address] BEDS AT THE [facility] [address] Dept: [phone] Dept Loc: [phone] Visit type: New Reason for Visit: Multivessel coronary artery disease-evaluate for CABG Assessment and plan 69-year-old patient with diabetes mellitus who has had exertional dyspnea underwent a stress test which was abnormal. A subsequent cardiac catheterization revealed multivessel coronary artery disease with a chronically occluded right coronary artery (with collateral reconstitution via iost-nl-rhubu collaterals), and 90% stenosis at the ostium [...] Normal appearanc (more content not included)... [facility] Cardiac Cath Diagnosticon Cardiac Cath Diagnostic [facility] Imaging Services [address] [place] [address] Cardiac Cath Diagnostic MR#: [id number] Acct: [id number] Name: RYAN MACEDO Rep #: [id number] : 1955 69 From: Stone Williamson MD PCP: Dr. Miriam Gomez, DO Status:REG [facility] Patient Name: RYAN MACEDO Study Date: 12/25/2024 Performing: Stone Williamson MD Ht: 76 inches 193.04 cm : 1955 Wt: 202.01 lbs 91.63 kg Age: 69 Gender: male BSA: 2.22 PROCEDURE(S) PERFORMED DC01-(23525)LHC/COR/L V CLINICAL PROFILE AND INDICATIONS Indications: Suspected [...] multiple views using a 5 Fr. 4.0 Gaastra catheter. Right Coronary Artery selective angiography was then performed in multiple views using a 5 Fr. 4.0 Gaastra catheter. Left Ventriculography was performed in [facility] [...] vessel appears to be mildly diseased only. Mefw-co-werma collaterals are noted. CIRCUMFLEX ARTERY: Mild calcification, Codominant vessel. The proximal circumflex artery has a 70 to 80% stenotic lesion in the first obtuse marginal branch is subtotally occluded in the second obtuse marginal branch is calcified with a long 80% occlusion. Distal circumflex has mild disease and opei-en-djnxn collaterals are noted. RIGHT CORONARY ARTERY: Codominant [...] DO Date Dictated: 12/25/24757 Date Transcribed: 12/25/24829 Senior Safety Support Manager: [place] Signed Normal [facility] Cardiac catheterization repo rtOrdered By: Stone Williamson on 12-25-2024 Cardiac catheterization study [facility] Imaging Services [address] [place] [address] Cardiac Cath Diagnostic MR#: [id number] Acct: [id number] Name: RYAN MACEDO Rep #:[id number] : 1955 69 From: Stone Williamson MD PCP: Dr. Miriam Gomez, DO Status:[facility] Patient Name: RYAN MACEDO Study Date: 12/25/2024 Performing: Stone Williamson MD Ht: 76 inches 193.04 cm : 1955 Wt: 202.01 lbs 91.63 kg Age: 69 Gender: male BSA: 2.22 PROCEDURE(S) PERFORMED DC01-74073)LHC/COR/L V CLINICAL PROFILE AND INDICATIONS Indications: Suspected [...] multiple views using a 5 Fr. 4.0 Gaastra catheter. Right Coronary Artery selective angiography was then performed in multiple views using a 5 Fr. 4.0 Gaastra catheter. Left Ventriculography was performed in [facility] [...] vessel appears to be mildly diseased only. Eevm-ac-ncwek collaterals are noted. CIRCUMFLEX ARTERY: Mild calcification, Codominant vessel. The proximal circumflex artery has a 70 to 80% stenotic lesion in the first obtuse marginal branch is subtotally occluded in the second obtuse marginal branch is calcified with a long 80% occlusion. Distal circumflex has mild disease and yqfg-ss-tlbvn collaterals are noted. RIGHT CORONARY ARTERY: Codominant [...] ~ Date Dictated: 12/25/24757 Date Transcribed: 12/25/24829 Senior Safety Support Manager: [place] Signed [facility] Work Phone: Absolute lymphocyte countOrd ered By: Radha Adame on 12-11-2024 Lymphocytes Auto (Unsp spec) [#/Vol] 1.08 10*3/uL 0.83-4.51 [facility] Absolute neutrophil countOrd ered By: Radha Adame on 12-11-2024 Neutrophils (Bld) [#/Vol] 6.5 10*3/uL 2.0-7.7 [facility] Anion gap in Serum or Plasma Ordered By: Radha Adame on 12-11-2024 Anion gap [Moles/Vol] 14 mmol/L 5-15 [facility] Automated lymphocyte count a s percentage of total leukocytesOrdered By: Radha Adame on 12-11-2024 Lymphocytes/100 WBC Auto (Unsp spec) 12.5 % Low 19-41 [facility] BUN/creatinine ratioOrdered By: Radha Adame on 12-11-2024 Urea nitrogen/Creatinine [Mass ratio] 20.8 mg/mg High 10-20 [facility] Basic Metabolic Profile (BMP )on 12-11-2024 BUN/CRE 20.8 RATIO High - [facility] Comment on above: Performed By: #### L 500.2500, L100.0100 #### [facility] [address] [place] [place], [address] Calcium [Mass/Vol] 9.8 mg/dL Normal 7.6-11.0 [facility] Comment on above: Performed By: #### L 500.2500, L100.0100 #### [facility] [address] [place], [address] Chloride [Moles/Vol] 99 mmol/L Normal 98-108 [facility] Comment on above: Performed By: #### L 500.2500, L100.0100 #### [facility] [address] [place], [address] CO2 [Moles/Vol] 26.9 mmol/L Normal 21.0-32.0 [facility] Comment on above: Performed By: #### L 500.2500, L100.0100 #### [facility] [address] [place], [address] Creatinine [Mass/Vol] 1.19 mg/dL Normal 0.70-1.20 [facility] Comment on above: Performed By: #### L 500.2500, L100.0100 #### [facility] [address] [place], [address] GAP 14 Normal 5-15 [facility] Comment on above: Performed By: #### L 500.2500, L100.0100 #### [facility] [address] [place], [address] GFR/1.73 sq M.predicted among non-blacks MDRD (S/P/Bld) [Vol rate/Area] 66 mL/min/{1.73_m2} Normal >60 [facility] Comment on above: Result Comment: mL/m in/1.73m2 CKD-EPI Creatinine Equation (2020) Performed By: #### L 500.2500, L100.0100 #### [facility] [address] [place], [address] Glucose [Mass/Vol] 141 mg/dL High 70-99 [facility] Comment on above: Performed By: #### L 500.2500, L100.0100 #### [facility] [address] [place], [address] Potassium [Moles/Vol] 3.9 mmol/L Normal 3.3-5.1 [facility] Comment on above: Result Comment: Hemo lysis present, Results??could be affected. ?? Performed By: #### L 500.2500, L100.0100 #### [facility] [address] [place], [address] Sodium [Moles/Vol] 139 mmol/L Normal 133-145 [facility] Comment on above: Performed By: #### L 500.2500, L100.0100 #### [facility] [address] [place], [address] Urea nitrogen [Mass/Vol] 25 mg/dL High 4-19 [facility] Comment on above: Performed By: #### L 500.2500, L100.0100 #### [facility] [address] [place], [address] Basophil percentageOrdered B y: Radha Adame on 12-11-2024 Basophils/100 WBC (Bld) 0.3 % 0-1 [facility] CBC W/Diff, Automatedon 08-0 Absolute Lymph 1.08 X10 3/uL Normal 0.83-4.51 [facility] Comment on above: Performed By: #### L 500.2500, L100.0100 #### [facility] [address] [place], [address] Absolute Neut 6.5 X10 3/uL Normal 2.0-7.7 [facility] Comment on above: Performed By: #### L 500.2500, L100.0100 #### [facility] [address] [place], [address] Basophils/100 WBC (Bld) 0.3 % Normal 0-1 [facility] Comment on above: Performed By: #### L 500.2500, L100.0100 #### [facility] [address] [place], [address] Eosinophils/100 WBC (Bld) 1.4 % Normal 0-5 [facility] Comment on above: Performed By: #### L 500.2500, L100.0100 #### [facility] [address] [place], [address] Erythrocyte distribution width (RBC) [Ratio] 12.2 % Normal 11.6-14.6 [facility] Comment on above: Performed By: #### L 500.2500, L100.0100 #### [facility] [address] [place], [address] Hematocrit (Bld) [Volume fraction] 38.2 % Low 40-54 [facility] Comment on above: Performed By: #### L 500.2500, L100.0100 #### [facility] [address] [place], [address] Hemoglobin (Bld) [Mass/Vol] 13.0 g/dL Normal 13.0-16.5 [facility] Comment on above: Performed By: #### L 500.2500, L100.0100 #### [facility] [address] [place], [address] IG% 0.900 Normal 0.0-0.9 [facility] Comment on above: Result Comment: IG% - Immature Granulocytes (promyelocytes, myelocytes and metamyelocytes) > 1% indicates that a LEFT SHIFT is Present. Performed By: #### L 500.2500, L100.0100 #### [facility] [address], [address] Lymphocytes/100 WBC (Bld) 12.5 % Low 19-41 [facility] Comment on above: Performed By: #### L 500.2500, L100.0100 #### [facility] [address] [place], [address] MCH (RBC) [Entitic mass] 31.2 pg Normal 27.0-32.0 [facility] Comment on above: Performed By: #### L 500.2500, L100.0100 #### [facility] [address] [place], [address] MCHC (RBC) [Mass/Vol] 34.0 g/dL Normal 32-36 [facility] Comment on above: Performed By: #### L 500.2500, L100.0100 #### [facility] [address] [place], [address] MCV (RBC) [Entitic vol] 91.6 fL Normal 80-94 [facility] Comment on above: Performed By: #### L 500.2500, L100.0100 #### [facility] [address] [place], [address] Monocytes/100 WBC (Bld) 10.1 % High 0-10 [facility] Comment on above: Performed By: #### L 500.2500, L100.0100 #### [facility] [address] [place], [address] Neutrophils/100 WBC (Bld) 74.8 % High 47-70 [facility] Comment on above: Performed By: #### L 500.2500, L100.0100 #### [facility] [address] [place], [address] Nucleated RBC (Bld) [#/Vol] 0 10*3/uL Normal 0-5 [facility] Comment on above: Performed By: #### L 500.2500, L100.0100 #### [facility] [address] [place], [address] Platelet mean volume (Bld) [Entitic vol] 10.4 fL Normal 6.2-12.0 [facility] Comment on above: Performed By: #### L 500.2500, L100.0100 #### [facility] [address] [place], [address] Platelets (Bld) [#/Vol] 289 10*3/uL Normal 150-450 [facility] Comment on above: Performed By: #### L 500.2500, L100.0100 #### [facility] [address] [place], [address] RBC (Bld) [#/Vol] 4.17 10*6/uL Low 4.6-6.2 [facility] Comment on above: Performed By: #### L 500.2500, L100.0100 #### [facility] [address] [place], [address] RDW SD 40.8 fl Normal 35.1-43.9 [facility] Comment on above: Performed By: #### L 500.2500, L100.0100 #### [facility] [address] [place], [address] WBC (Bld) [#/Vol] 8.6 10*3/uL Normal 4.4-11.0 [facility] Comment on above: Performed By: #### L 500.2500, L100.0100 #### [facility] [address] [place], [address] Carbon dioxide, total [Moles /volume] in Central venous bloodOrdered By: Radha Adame on 12-11-2024 CO2 [Moles/Vol] 26.9 mmol/L 21.0-32.0 [facility] Cardiology Visit Reporton Cardiology Visit Report [facility] [address] [place] [address] OFFICE VISIT Date of Service: 12/11/24 MR#: [id number] Acct: [id number] Name: RYAN MACEDO Rep #: [id number] : 1955 Provider: GWYN Oliveros Age/Sex: 69/M Location: [facility] Status: Signed HPI HPI History of Present [...] Source Monitor Intake Visit Reasons: POS. 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 Normal [facility] Chest PA and Lateralon 12-11 Chest PA and Lateral [facility] [address], [place] [address] Chest PA and Lateral MR#: [id number] Acct: [id number] Name: RYAN MACEDO Rep #: [id number] : 1955 M 69 From: Timothy Clark PCP: Dr. Miriam Gomez DO Status: REG CLI Study: Chest PA and Lateral Date of Exam: 12/11/24 Exam# [id number] Ordering Dr: Radha Adame PA ADDENDUM by Dr. Manuel Masters MD on 12/12/24 at 0406 . Reading Location: [facility]-2 12/12/24 0406 Date cc: Dr. Miriam Gomez [...] No acute process is seen. Reading Location: [place] [address] CC: Dr. Miriam Gomez, DO; GWYN Olivares Senior Safety Support Manager: Signed Normal [facility] Chloride assayOrdered By: Neida Adame on 12-11-2024 Chloride [Moles/Vol] 99 mmol/L 98-108 [facility] Eosinophil percentageOrdered By: Radha Adame on 12-11-2024 Eosinophils/100 WBC (Bld) 1.4 % 0-5 [facility] Erythrocyte distribution wid th ratioOrdered By: Radha Adame on 12-11-2024 Erythrocyte distribution width (RBC) [Ratio] 12.2 % 11.6-14.6 [facility] Erythrocyte distribution wid th standard deviationOrdered By: Radha Aadme on 12-11-2024 Erythrocyte distribution width (RBC) [Ratio] 40.8 fl 35.1-43.9 [facility] Glomerular filtration rate ( GFR) estimation/1.73 sq m using serum, plasma, or whole bOrdered By: Radha Adame on 12-11-2024 GFR/1.73 sq M.predicted among non-blacks MDRD (S/P/Bld) [Vol rate/Area] 66 mL/min/{1.73_m2} >60 [facility] Comment on above: mL/min/1.73m2 CKD-EP I Creatinine Equation (2020) Hematocrit Auto (Bld) [Volum e fraction]Ordered By: Radha Adame on 12-11-2024 Hematocrit (Bld) [Volume fraction] 38.2 % Low 40-54 [facility] Hemoglobin measurementOrdere d By: Radha Adame on 12-11-2024 Hemoglobin (Bld) [Mass/Vol] 13.0 g/dL 13.0-16.5 [facility] Immature granulocytes/100 WB C Auto (Bld)Ordered By: Radha Adame on 12-11-2024 Immature granulocytes/100 WBC (Bld) 0.900 % 0.0-0.9 [facility] Comment on above: IG% - Immature Granu locytes (promyelocytes, myelocytes and metamyelocytes) > 1% indicates that a LEFT SHIFT is Present. MCV (mean corpuscular volume ) determinationOrdered By: Radha Adame on 12-11-2024 MCV (RBC) [Entitic vol] 91.6 fL 80-94 [facility] Mean corpuscular hemoglobin (MCH) determinationOrdered By: Radha Adame on 12-11-2024 MCH (RBC) [Entitic mass] 31.2 pg 27.0-32.0 [facility] Mean corpuscular hemoglobin concentration (MCHC) determinationOrdered By: Radha Adame on 12-11-2024 MCHC (RBC) [Mass/Vol] 34.0 g/dL 32-36 [facility] Mean platelet volume determi nationOrdered By: Radha Adame on 12-11-2024 Platelet mean volume (Bld) [Entitic vol] 10.4 fL 6.2-12.0 [facility] Monocyte percentageOrdered B y: Radha Adame on 12-11-2024 Monocytes/100 WBC (Bld) 10.1 % High 0-10 [facility] Neutrophil percentageOrdered By: Radha Adame on 12-11-2024 Neutrophils/100 WBC (Bld) 74.8 % High 47-70 [facility] Nucleated red blood cell per centageOrdered By: Radha Adame on 12-11-2024 Nucleated RBC/100 WBC (Bld) [Ratio] 0 % 0-5 [facility] Platelet countOrdered By: Neida Adame on 12-11-2024 Platelets (Bld) [#/Vol] 289 10*3/uL 150-450 [facility] Potassium measurement (mass/ volume)Ordered By: Radha Adame on 12-11-2024 Potassium (Unsp spec) [Mass/Vol] 3.9 mmol/L 3.3-5.1 [facility] Comment on above: Hemolysis present, R esults could be affected. RBC Auto (Bld) [#/Vol]Ordere d By: Radha Adame on 12-11-2024 RBC (Bld) [#/Vol] 4.17 10*6/uL Low 4.6-6.2 [facility] Serum creatinine measurement (mass/volume)Ordered By: Radha Adame on 12-11-2024 Creatinine [Mass/Vol] 1.19 mg/dL 0.70-1.20 [facility] Serum glucose measurement (m ass/volume)Ordered By: Radha Adame on 12-11-2024 Glucose [Mass/Vol] 141 mg/dL High 70-99 [facility] Serum or plasma calcium shea urement (mass/volume)Ordered By: Radha Adame on 12-11-2024 Calcium [Mass/Vol] 9.8 mg/dL 7.6-11.0 [facility] Serum or plasma urea nitroge n measurement (mass/volume)Ordered By: Radha Adame on 12-11-2024 Urea nitrogen [Mass/Vol] 25 mg/dL High 4-19 [facility] Sodium levelOrdered By: Kris Adame on 12-11-2024 Sodium [Moles/Vol] 139 mmol/L 133-145 [facility] White blood cell (WBC) count Ordered By: Radha Adame on 12-11-2024 WBC (Bld) [#/Vol] 8.6 10*3/uL 4.4-11.0 [facility] Cardiovascular stress test r eportOrdered By: Stone Williamson on 12-05-2024 Study report [facility] [address] [place] [address] MR#: [id number] Acct: [id number] Name: RYAN MACEDO Rep #: [id number] [...] ~ Date Dictated: 12/05/241634 Date Transcribed: 12/05/241634 Senior Safety Support Manager: [place] Signed [facility] Work Phone: Stress Reporton 12-05-2024 Stress Report [facility] [address] [place] [address] MR#: [id number] Acct: [id number] Name: RYAN MACEDO Rep #: [id number] : 1955 69 From: Stone Williamson MD [...] DO Date Dictated: 12/05/241634 Date Transcribed: 12/05/241634 Senior Safety Support Manager: [place] Signed Normal [facility] CBC W/Diff, Automatedon 02-06 Absolute Lymph 0.84 X10 3/uL Normal 0.83-4.51 [facility] Comment on above: Performed By: #### L 100.0100, L502.0250, L500.4050, L501.9985, L500.4100 #### [facility] [address] [place], [address] Absolute Neut 4.4 X10 3/uL Normal 2.0-7.7 [facility] Comment on above: Performed By: #### L 100.0100, L502.0250, L500.4050, L501.9985, L500.4100 #### [facility] [address] [place], [address] Basophils/100 WBC (Bld) 0.7 % Normal 0-1 [facility] Comment on above: Performed By: #### L 100.0100, L502.0250, L500.4050, L501.9985, L500.4100 #### [facility] [address] [place], [address] Eosinophils/100 WBC (Bld) 2.2 % Normal 0-5 [facility] Comment on above: Performed By: #### L 100.0100, L502.0250, L500.4050, L501.9985, L500.4100 #### [facility] [address] [place], [address] Erythrocyte distribution width (RBC) [Ratio] 12.6 % Normal 11.6-14.6 [facility] Comment on above: Performed By: #### L 100.0100, L502.0250, L500.4050, L501.9985, L500.4100 #### [facility] [address] [place], [address] Hematocrit (Bld) [Volume fraction] 40.0 % Normal 40-54 [facility] Comment on above: Performed By: #### L 100.0100, L502.0250, L500.4050, L501.9985, L500.4100 #### [facility] [address] [place], [address] Hemoglobin (Bld) [Mass/Vol] 13.1 g/dL Normal 13.0-16.5 [facility] Comment on above: Performed By: #### L 100.0100, L502.0250, L500.4050, L501.9985, L500.4100 #### [facility] [address] [place], [address] IG% 0.800 Normal 0.0-0.9 [facility] Comment on above: Result Comment: IG% - Immature Granulocytes (promyelocytes, myelocytes and metamyelocytes) > 1% indicates that a LEFT SHIFT is Present. Performed By: #### L 100.0100, L502.0250, L500.4050, L501.9985, L500.4100 #### [facility] [address] [place], [address] Lymphocytes/100 WBC (Bld) 14.1 % Low 19-41 [facility] Comment on above: Performed By: #### L 100.0100, L502.0250, L500.4050, L501.9985, L500.4100 #### [facility] [address] [place], [address] MCH (RBC) [Entitic mass] 30.5 pg Normal 27.0-32.0 [facility] Comment on above: Performed By: #### L 100.0100, L502.0250, L500.4050, L501.9985, L500.4100 #### [facility] [address] [place], [address] MCHC (RBC) [Mass/Vol] 32.8 g/dL Normal 32-36 [facility] Comment on above: Performed By: #### L 100.0100, L502.0250, L500.4050, L501.9985, L500.4100 #### [facility] [address] [place], [address] MCV (RBC) [Entitic vol] 93.2 fL Normal 80-94 [facility] Comment on above: Performed By: #### L 100.0100, L502.0250, L500.4050, L501.9985, L500.4100 #### [facility] [address] [place], [address] Monocytes/100 WBC (Bld) 9.0 % Normal 0-10 [facility] Comment on above: Performed By: #### L 100.0100, L502.0250, L500.4050, L501.9985, L500.4100 #### [facility] [address] [place], [address] Neutrophils/100 WBC (Bld) 73.2 % High 47-70 [facility] Comment on above: Performed By: #### L 100.0100, L502.0250, L500.4050, L501.9985, L500.4100 #### [facility] [address] [place], [address] Nucleated RBC (Bld) [#/Vol] 0 10*3/uL Normal 0-5 [facility] Comment on above: Performed By: #### L 100.0100, L502.0250, L500.4050, L501.9985, L500.4100 #### [facility] [address] [place], [address] Platelet mean volume (Bld) [Entitic vol] 11.3 fL Normal 6.2-12.0 [facility] Comment on above: Performed By: #### L 100.0100, L502.0250, L500.4050, L501.9985, L500.4100 #### [facility] [address] [place], [address] Platelets (Bld) [#/Vol] 269 10*3/uL Normal 150-450 [facility] Comment on above: Performed By: #### L 100.0100, L502.0250, L500.4050, L501.9985, L500.4100 #### [facility] [address] [place], [address] RBC (Bld) [#/Vol] 4.29 10*6/uL Low 4.6-6.2 [facility] Comment on above: Performed By: #### L 100.0100, L502.0250, L500.4050, L501.9985, L500.4100 #### [facility] [address] [place], [address] RDW SD 43.2 fl Normal 35.1-43.9 [facility] Comment on above: Performed By: #### L 100.0100, L502.0250, L500.4050, L501.9985, L500.4100 #### [facility] [address] [place], [address] WBC (Bld) [#/Vol] 6.0 10*3/uL Normal 4.4-11.0 [facility] Comment on above: Performed By: #### L 100.0100, L502.0250, L500.4050, L501.9985, L500.4100 #### [facility] [address] [place], [address] Comprehensive Metabolic [facility] ilon 02-27-2024 Albumin [Mass/Vol] 4.0 g/dL Normal 3.2-5.0 [facility] Comment on above: Performed By: #### L 100.0100, L502.0250, L500.4050, L501.9985, L500.4100 #### [facility] [address] [place], [address] Albumin/Globulin [Mass ratio] 1.1 {ratio} Normal 0.9-2.4 [facility] Comment on above: Performed By: #### L 100.0100, L502.0250, L500.4050, L501.9985, L500.4100 #### [facility] [address] [place], [address] ALK P 68 U/L Normal 45-117 [facility] Comment on above: Performed By: #### L 100.0100, L502.0250, L500.4050, L501.9985, L500.4100 #### [facility] [address] [place], [address] ALT [Catalytic activity/Vol] 28 U/L Normal 16-61 [facility] Comment on above: Performed By: #### L 100.0100, L502.0250, L500.4050, L501.9985, L500.4100 #### [facility] [address] [place], [address] AST [Catalytic activity/Vol] 14 U/L Low 15-37 [facility] Comment on above: Performed By: #### L 100.0100, L502.0250, L500.4050, L501.9985, L500.4100 #### [facility] [address] [place], [address] Bilirubin [Mass/Vol] 0.40 mg/dL Normal 0.20-1.00 [facility] Comment on above: Result Comment: For patients on eltrombopag therapy, use of Dimension [place] TBIL is not recommended. Performed By: #### L 100.0100, L502.0250, L500.4050, L501.9985, L500.4100 #### [facility] [address] [place], [address] BUN/CRE 24.4 RATIO High 10-20 [facility] Comment on above: Performed By: #### L 100.0100, L502.0250, L500.4050, L501.9985, L500.4100 #### [facility] [address] [place], [address] CA,Total 10.0 mg/dL Normal 8.5-10.1 [facility] Comment on above: Performed By: #### L 100.0100, L502.0250, L500.4050, L501.9985, L500.4100 #### [facility] [address] [place], [address] Chloride [Moles/Vol] 105 mmol/L Normal 98-107 [facility] Comment on above: Performed By: #### L 100.0100, L502.0250, L500.4050, L501.9985, L500.4100 #### [facility] [address] [place], [address] CO2 [Moles/Vol] 29.0 mmol/L Normal 21.0-32.0 [facility] Comment on above: Performed By: #### L 100.0100, L502.0250, L500.4050, L501.9985, L500.4100 #### [facility] [address] [place], [address] Creatinine [Mass/Vol] 1.27 mg/dL Normal 0.70-1.30 [facility] Comment on above: Result Comment: The validity of the calculated GFR GFRAA in patients over 70 years has not been determined. Clinical correlation is essential. Performed By: #### L 100.0100, L502.0250, L500.4050, L501.9985, L500.4100 #### [facility] [address] [place], [address] EST GFR - AA 72 mL/min Normal >60 [facility] Comment on above: Result Comment: Afri can Gambian GFR Calc Performed By: #### L 100.0100, L502.0250, L500.4050, L501.9985, L500.4100 #### [facility] [address] [place], [address] GAP 6 Normal 5-15 [facility] Comment on above: Performed By: #### L 100.0100, L502.0250, L500.4050, L501.9985, L500.4100 #### [facility] [address] [place], [address] GFR/1.73 sq M.predicted among non-blacks MDRD (S/P/Bld) [Vol rate/Area] 60 mL/min/{1.73_m2} Normal >60 [facility] Comment on above: Result Comment: Non- GFR Calc Performed By: #### L 100.0100, L502.0250, L500.4050, L501.9985, L500.4100 #### [facility] [address] [place], [address] Globulin (S) [Mass/Vol] 3.5 g/dL Normal 2.2-4.2 [facility] Comment on above: Performed By: #### L 100.0100, L502.0250, L500.4050, L501.9985, L500.4100 #### [facility] [address] [place], [address] Glucose [Mass/Vol] 158 mg/dL High 74-106 [facility] Comment on above: Result Comment: Fast ing Glucose result greater than or equal to 126 mg/dL suggests DIABETES MELLITUS per A.D.A. criteria. Performed By: #### L 100.0100, L502.0250, L500.4050, L501.9985, L500.4100 #### [facility] [address] [place], [address] Potassium [Moles/Vol] 4.6 mmol/L Normal 3.5-5.1 [facility] Comment on above: Performed By: #### L 100.0100, L502.0250, L500.4050, L501.9985, L500.4100 #### [facility] [address] [place], [address] Sodium [Moles/Vol] 141 mmol/L Normal 136-145 [facility] Comment on above: Performed By: #### L 100.0100, L502.0250, L500.4050, L501.9985, L500.4100 #### [facility] [address] [place], [address] T PROT 7.5 g/dL Normal 6.4-8.2 [facility] Comment on above: Performed By: #### L 100.0100, L502.0250, L500.4050, L501.9985, L500.4100 #### [facility] [address] [place], [address] Urea nitrogen [Mass/Vol] 31 mg/dL High 7-18 [facility] Comment on above: Performed By: #### L 100.0100, L502.0250, L500.4050, L501.9985, L500.4100 #### [facility] [address] [place], [address] Hemoglobin A1con 02-27-2024 HbA1c (Bld) [Mass fraction] 7.1 % High 3.8-5.6 [facility] Comment on above: Result Comment: Norm al < 5.7 % Prediabetic 5.7 - 6.4 % Diabetic >or= 6.5 % Please note range changes. Performed By: #### L 100.0100, L502.0250, L500.4050, L501.9985, L500.4100 #### [facility] [address] [place], [address] Lipid Profileon 02-27-2024 Cholesterol [Mass/Vol] 195 mg/dL Normal 200 [facility] Comment on above: Result Comment: <200 mg/dL Desirable 200-240 mg/dL Borderline >240 mg/dL High Risk Performed By: #### L 100.0100, L502.0250, L500.4050, L501.9985, L500.4100 ####[facility] [address] [place], [address] Cholesterol in HDL [Mass/Vol] 44 mg/dL Normal [facility] Comment on above: Result Comment: The drugs N-Acetylcysteine and Metamizole may falsely depress this assay. Reference Range HDL <40 mg/dL Low HDL Cholesterol HDL >or= 60 mg/dL High HDL Cholesterol Performed By: #### L 100.0100, L502.0250, L500.4050, L501.9985, L500.4100 ####[facility] [address] [place], [address] Cholesterol in LDL [Mass/Vol] 132 mg/dL High 0-130 [facility] Comment on above: Performed By: #### L 100.0100, L502.0250, L500.4050, L501.9985, L500.4100 ####[facility] [address] [place], [address] Cholesterol in VLDL [Mass/Vol] 19 mg/dL Normal 5-40 [facility] Comment on above: Performed By: #### L 100.0100, L502.0250, L500.4050, L501.9985, L500.4100 ####[facility] [address] [place], [address] Triglyceride [Mass/Vol] 97 mg/dL Normal [facility] Comment on above: Result Comment: The drugs N-Acetylcysteine and Metamizole may falsely depress this assay. Serum Triglycerides Reference Interval Normal <150 mg/dL Borderline high 150 - 199 mg/dL High 200 - 499 mg/dL Very High > or = 500 mg/dL Performed By: #### L 100.0100, L502.0250, L500.4050, L501.9985, L500.4100 ####[facility] [address] [place], [address] Microalb:Creat Ratio,Random URon 02-27-2024 Creatinine [Mass/Vol] 128.00 mg/dL Normal NO RAN GE EST. [facility] Comment on above: Performed By: #### L 100.0100, L502.0250, L500.4050, L501.9985, L500.4100 ####[facility] [address] [place], [address] MALB:CRE 5.0 mg/g CRE Normal <30 mg/g CRE [facility] Comment on above: Performed By: #### L 100.0100, L502.0250, L500.4050, L501.9985, L500.4100 ####[facility] [address] [place], [address] MICROALBUMIN,UR 6.5 mg/L Normal NO RANGE EST. [facility] Comment on above: Performed By: #### L 100.0100, L502.0250, L500.4050, L501.9985, L500.4100 ####[facility] [address] [place], [address] Absolute lymphocyte countOrd ered By: Miriam Gomez on 02-23-2023 Lymphocytes Auto (Unsp spec) [#/Vol] 0.70 10*3/uL 0.83-4.51 [facility] Basophil percentageOrdered B y: Miriam Gomez on 02-23-2023 Basophils/100 WBC (Bld) 0.3 % 0-1 [facility] Bilirubin [Mass/Vol] 0.50 mg/dL 0.20-1.00 [facility] Comment on above: For patients on eltr ombopag therapy, use of Dimension [place] TBIL is not recommended. Chloride [Moles/Vol] 103 mmol/L 98-107 [facility] Cholesterol [Mass/Vol] 174 mg/dL <200 [facility] Comment on above: <200 mg/dL Desirable 200-240 mg/dL Borderline >240 mg/dL High Risk Eosinophils/100 WBC (Bld) 2.5 % 0-5 [facility] Glucose [Mass/Vol] 141 mg/dL 74-106 [facility] Comment on above: Fasting Glucose resu lt greater than or equal to 126 mg/dL suggests DIABETES MELLITUS per A.D.A. criteria. Neutrophils (Bld) [#/Vol] 4.5 10*3/uL 2.0-7.7 [facility] Neutrophils/100 WBC (Bld) 75.0 % 47-70 [facility] Potassium [Moles/Vol] 3.5 mmol/L 3.5-5.1 [facility] Protein [Mass/Vol] 7.5 g/dL 6.4-8.2 [facility] Sodium [Moles/Vol] 139 mmol/L 136-145 [facility] Triglyceride [Mass/Vol] 133 mg/dL <199 [facility] Comment on above: The drugs N-Acetylcy steine and Metamizole may falsely depress this assay.Serum Triglycerides Reference Interval Normal <150 mg/dL Borderline high 150 - 199 mg/dL High 200 - 499 mg/dL Very High > or = 500 mg/dL WBC (Bld) [#/Vol] 6.0 10*3/uL 4.4-11.0 [facility] Blood erythrocytes count (nu mber/volume)Ordered By: Miriam Gomez on 02-23-2023 RBC (Bld) [#/Vol] 4.37 10*6/uL 4.6-6.2 [facility] Blood hemoglobin measurement (mass/volume)Ordered By: Miriam Gomez on 02-23-2023 Hemoglobin (Bld) [Mass/Vol] 13.3 g/dL 13.0-16.5 [facility] Blood lymphocytes/100 leukoc ytesOrdered By: Miriam Gomez on 02-23-2023 Lymphocytes/100 WBC (Bld) 11.7 % 19-41 [facility] Blood monocytes/100 leukocyt esOrdered By: Miriam Gomez on 02-23-2023 Monocytes/100 WBC (Bld) 10.0 % 0-10 [facility] Blood platelet mean volumeOr dered By: Miriam Gomez on 02-23-2023 Platelet mean volume (Bld) [Entitic vol] 10.8 fL 6.2-12.0 [facility] Determination of erythrocyte mean corpuscular volume (MCV)Ordered By: Miriam Gomez on 02-23-2023 MCV (RBC) [Entitic vol] 92.4 fL 80-94 [facility] Hematocrit Auto (Bld) [Volum e fraction]Ordered By: Miriam Gomez on 02-23-2023 Hematocrit (Bld) [Volume fraction] 40.4 % 40-54 [facility] Laboratory - Chemistry and C hemistry - challengeOrdered By: Miriam Gomez on 02-23-2023 ALP [Catalytic activity/Vol] 72 U/L 45-117 [facility] ALT [Catalytic activity/Vol] 36 U/L 16-61 [facility] CO2 [Moles/Vol] 30.0 mmol/L 21.0-32.0 [facility] Cobalamin (Vitamin B12) [Mass/Vol] 445 pg/mL 211-911 [facility] Free T4 [Mass/Vol] 1.09 ng/dL 0.76-1.46 [facility] Globulin (S) [Mass/Vol] 3.7 g/dL 2.2-4.2 [facility] Urea nitrogen/Creatinine [Mass ratio] 15.7 mg/mg 10- [facility] - Hematology and Cell countsOrdered By: Miriam Gomez on 02-23-2023 Erythrocyte distribution width (RBC) [Entitic vol] 41.1 fL 35.1-43.9 [facility] Erythrocyte distribution width (RBC) [Ratio] 12.2 % 11.6-14.6 [facility] Immature granulocytes/100 WBC (Bld) 0.500 % 0.0-0.9 [facility] Comment on above: IG% - Immature Granu locytes (promyelocytes, myelocytes and metamyelocytes) > 1% indicates that a LEFT SHIFT is Present. MCH (RBC) [Entitic mass] 30.4 pg 27.0-32.0 [facility] Nucleated RBC/100 WBC (Bld) [Ratio] 0 % 0-5 [facility] MCHC Auto (RBC) [Mass/Vol]Or dered By: Miriam Gomez on 02-23-2023 MCHC (RBC) [Mass/Vol] 32.9 g/dL 32-36 [facility] No Panel InformationOrdered By: Miriam Gomez on 02-23-2023 Estimated GFR (MDRD) Amer 77 mL/min >60 [facility] Comment on above: GFR Calc Estimated GFR (MDRD) Non-Af Amer 63 mL/min >60 [facility] Comment on above: Non- GFR Calc Prostate Specific Antigen Screen 2.98 ng/mL 0.00-4.00 [facility] Comment on above: This test was perfor med using the TPSA assay method for the[employer] chemistry system. Values obtained with differentassay methods cannot be used interchangably.When changing PSA assays in the course of monitoring apatient, additional sequential testing should be carriedout to confirm baseline values. Thyroid Stimulating Hormone (TSH) 1.17 uIU/mL 0.358-3.74 [facility] Urine Microalbumin/Creatinine Ratio 3.8 mg/g CRE <30 [facility] Platelets bldOrdered By: Jaylin Gomez on 02-23-2023 Platelets (Bld) [#/Vol] 268 10*3/uL 150-450 [facility] Serum or plasma albumin shea urement (mass/volume)Ordered By: Miriam Gomez on 02-23-2023 Albumin [Mass/Vol] 3.8 g/dL 3.2-5.0 [facility] Serum or plasma albumin/glob ulin mass ratioOrdered By: Miriam Gomez on 02-23-2023 Albumin/Globulin [Mass ratio] 1.0 {ratio} 0.9-2.4 [facility] Serum or plasma calcium shea urement (mass/volume)Ordered By: Miriam Gomez on 02-23-2023 Calcium [Mass/Vol] 9.4 mg/dL 8.5-10.1 [facility] Serum or plasma cholesterol in HDL measurement (mass/volume)Ordered By: Miriam Gomez on 02-23-2023 Cholesterol in HDL [Mass/Vol] 37 mg/dL >40 [facility] Comment on above: The drugs N-Acetylcy steine and Metamizole may falsely depress this assay. Reference Range HDL <40 mg/dL Low HDL Cholesterol HDL >or= 60 mg/dL High HDL Cholesterol Serum or plasma cholesterol in VLDL measurement (mass/volume)Ordered By: Miriam Gomez on 02-23-2023 Cholesterol in VLDL [Mass/Vol] 27 mg/dL 5-40 [facility] Serum or plasma creatinine m easurement (mass/volume)Ordered By: Miriam Gomez on 02-23-2023 Creatinine [Mass/Vol] 1.21 mg/dL 0.70-1.30 [facility] Comment on above: The validity of the calculated GFR & GFRAA in patients over 70 years has not been determined. Clinical correlation is essential. Serum or plasma low density lipoprotein (LDL) cholesterol measurement (mass/volume)Ordered By: Miriam Gomez on 02-23-2023 Cholesterol in LDL [Mass/Vol] 110 mg/dL 0-130 [facility] Serum or plasma urea nitroge n measurement (mass/volume)Ordered By: Miriam Gomez on 02-23-2023 Urea nitrogen [Mass/Vol] 19 mg/dL 7-18 [facility] Thin prep Papanicolaou smear with manual screeningOrdered By: Miriam Gomez on 02-23-2023 Thin prep Papanicolaou smear with manual screening 17 U/L 15-37 [facility] Thin prep Papanicolaou smear with manual screening 6 5-15 [facility] Thin prep Papanicolaou smear with manual screening 9.7 mg/L NO RANGE EST. [facility] Urine creatinine measurement (mass/volume)Ordered By: Miriam Gomez on 02-23-2023 Creatinine (U) [Mass/Vol] 253.00 mg/dL NO RANGE EST. [facility] Whole blood hemoglobin A1c/t otal hemoglobin ratio (mass fraction)Ordered By: Miriam Gmoez on 02-23-2023 HbA1c (Bld) [Mass fraction] 6.7 % 3.8-5.6 [facility] Comment on above: Normal < 5.7 % Predi abetic 5.7 - 6.4 % Diabetic >or= 6.5 % Please note range changes. Absolute lymphocyte counton 02-15-2022 Lymphocytes Auto (Unsp spec) [#/Vol] 0.57 10*3/uL 0.83-4.51 [facility] Work Phone: Basophil percentageon 2021 Basophils/100 WBC (Bld) 1.0 % 0-1 [facility] Work Phone: [phone] Bilirubin [Mass/Vol] 0.60 mg/dL 0.20-1.00 [facility] Work Phone: Comment on above: For patients on eltr ombopag therapy, use of Dimension [place] TBIL is not recommended. Chloride [Moles/Vol] 103 mmol/L 98-107 [facility] Work Phone: Cholesterol [Mass/Vol] 198 mg/dL <200 [facility] Work Phone: Comment on above: <200 mg/dL Desirable 200-240 mg/dL Borderline >240 mg/dL High Risk Eosinophils/100 WBC (Bld) 3.8 % 0-5 [facility] Work Phone: [phone] Glucose [Mass/Vol] 152 mg/dL 74-106 [facility] Work Phone: [phone] Comment on above: Fasting Glucose resu lt greater than or equal to 126 mg/dL suggests DIABETES MELLITUS per A.D.A. criteria. Neutrophils (Bld) [#/Vol] 2.9 10*3/uL 2.0-7.7 [facility] Work Phone: [phone] Neutrophils/100 WBC (Bld) 69.9 % 47-70 [facility] Work Phone: [phone] Potassium [Moles/Vol] 4.3 mmol/L 3.5-5.1 [facility] Work Phone: [phone] Protein [Mass/Vol] 7.6 g/dL 6.4-8.2 [facility] Work Phone: [phone] Sodium [Moles/Vol] 139 mmol/L 136-145 [facility] Work Phone: [phone] Triglyceride [Mass/Vol] 119 mg/dL <199 [facility] Work Phone: [phone] Comment on above: The drugs N-Acetylcy steine and Metamizole may falsely depress this assay.Serum Triglycerides Reference Interval Normal <150 mg/dL Borderline high 150 - 199 mg/dL High 200 - 499 mg/dL Very High > or = 500 mg/dL WBC (Bld) [#/Vol] 4.2 10*3/uL 4.4-11.0 [facility] Work Phone: [phone] Blood erythrocytes count (nu mber/volume)on 02-15-2022 RBC (Bld) [#/Vol] 4.46 10*6/uL 4.6-6.2 [facility] Work Phone: [phone] Blood hemoglobin measurement (mass/volume)on 02-15-2022 Hemoglobin (Bld) [Mass/Vol] 13.6 g/dL 13.0-16.5 [facility] Work Phone: [phone] Blood lymphocytes/100 leukoc yteson 02-15-2022 Lymphocytes/100 WBC (Bld) 13.6 % 19-41 [facility] Work Phone: Blood manual differential co mment interpretation (narrative result)on 02-15-2022 Manual differential comment Toby (Bld) [Interp] See comment [facility] Work Phone: Comment on above: LYMPHOPENIA NOTED Blood monocytes/100 leukocyt eson 02-15-2022 Monocytes/100 WBC (Bld) 11.2 % 0-10 [facility] Work Phone: Blood platelet adequacy dete ction by light microscopyon 02-15-2022 Platelets LM Ql (Bld) ADEQUATE ADEQ [facility] Work Phone: Blood platelet mean volumeon 02-15-2022 Platelet mean volume (Bld) [Entitic vol] 11.1 fL 6.2-12.0 [facility] Work Phone: Determination of erythrocyte mean corpuscular volume (MCV)on 02-15-2022 MCV (RBC) [Entitic vol] 92.8 fL 80-94 [facility] Work Phone: Hematocrit Auto (Bld) [Volum e fraction]on 02-15-2022 Hematocrit (Bld) [Volume fraction] 41.4 % 40-54 [facility] Work Phone: Laboratory - Chemistry and C hemistry - challengeon 02-15-2022 ALP [Catalytic activity/Vol] 60 U/L 45-117 [facility] Work Phone: ALT [Catalytic activity/Vol] 36 U/L 16-61 [facility] Work Phone: CO2 [Moles/Vol] 28.0 mmol/L 21.0-32.0 [facility] Work Phone: Globulin (S) [Mass/Vol] 3.6 g/dL 2.2-4.2 [facility] Work Phone: Urea nitrogen/Creatinine [Mass ratio] 15.2 mg/mg 10-20 [facility] Work Phone: [phone] Laboratory - Hematology and Cell countson 02-15-2022 Erythrocyte distribution width (RBC) [Entitic vol] 41.3 fL 35.1-43.9 [facility] Work Phone: [phone] Erythrocyte distribution width (RBC) [Ratio] 12.1 % 11.6-14.6 [facility] Work Phone: [phone] Immature granulocytes/100 WBC (Bld) 0.500 % 0.0-0.9 [facility] Work Phone: [phone] Comment on above: IG% - Immature Granu locytes (promyelocytes, myelocytes and metamyelocytes) > 1% indicates that a LEFT SHIFT is Present. MCH (RBC) [Entitic mass] 30.5 pg 27.0-32.0 [facility] Work Phone: [phone] Nucleated RBC/100 WBC (Bld) [Ratio] 0 % 0-5 [facility] Work Phone: [phone] MCHC Auto (RBC) [Mass/Vol]on 02-15-2022 MCHC (RBC) [Mass/Vol] 32.9 g/dL 32-36 [facility] Work Phone: [phone] Panel Informationon 02-15 Estimated GFR (MDRD) Amer 84 mL/min >60 [facility] Work Phone: [phone] Comment on above: GFR Calc Estimated GFR (MDRD) Non-Af Amer 69 mL/min >60 [facility] Work Phone: [phone] Comment on above: Non- GFR Calc Prostate Specific Antigen Screen 3.19 ng/mL 0.00-4.00 [facility] Work Phone: [phone] Comment on above: This test was perfor med using the TPSA assay method for the[facility] system. Values obtained with differentassay methods cannot be used interchangably.When changing PSA assays in the course of monitoring apatient, additional sequential testing should be carriedout to confirm baseline values. Urine Microalbumin/Creatinine Ratio 3.6 mg/g CRE <30 [facility] Work Phone: Platelets bldon 02-15-2022 Platelets (Bld) [#/Vol] 251 10*3/uL 150-450 [facility] Work Phone: RBC morphologyon 02-15-2022 RBC morphology finding Nom (Bld) NORM C+C NORMAL NORM C&C [facility] Work Phone: Review by pathologiston 02-05 Pathologist review Toby (Unsp spec) [Interp] Reviewed [facility] Work Phone: Comment on above: Previous reported re sult: Karime petit Edited by: RGOOD on 02/16/22:1339 AMENDED REPORT 02/16/221 PATH REV previously reported as: Karime petit Serum or plasma albumin shea urement (mass/volume)on 02-15-2022 Albumin [Mass/Vol] 4.0 g/dL 3.2-5.0 [facility] Work Phone: [phone] Serum or plasma albumin/glob ulin mass ratioon 02-15-2022 Albumin/Globulin [Mass ratio] 1.1 {ratio} 0.9-2.4 [facility] Work Phone: Serum or plasma calcium shea urement (mass/volume)on 02-15-2022 Calcium [Mass/Vol] 9.7 mg/dL 8.5-10.1 [facility] Work Phone: Serum or plasma cholesterol in HDL measurement (mass/volume)on 02-15-2022 Cholesterol in HDL [Mass/Vol] 40 mg/dL >40 [facility] Work Phone: Comment on above: The drugs N-Acetylcy steine and Metamizole may falsely depress this assay. Reference Range HDL <40 mg/dL Low HDL Cholesterol HDL >or= 60 mg/dL High HDL Cholesterol Serum or plasma cholesterol in VLDL measurement (mass/volume)on 02-15-2022 Cholesterol in VLDL [Mass/Vol] 24 mg/dL 5-40 [facility] Work Phone: [phone] Serum or plasma creatinine m easurement (mass/volume)on 02-15-2022 Creatinine [Mass/Vol] 1.12 mg/dL 0.70-1.30 [facility] Work Phone: Comment on above: The validity of the calculated GFR & GFRAA in patients over 70 years has not been determined. Clinical correlation is essential. Serum or plasma low density lipoprotein (LDL) cholesterol measurement (mass/volume)on 02-15-2022 Cholesterol in LDL [Mass/Vol] 134 mg/dL 0-130 [facility] Work Phone: Serum or plasma urea nitroge n measurement (mass/volume)on 02-15-2022 Urea nitrogen [Mass/Vol] 17 mg/dL 7-18 [facility] Work Phone: Thin prep Papanicolaou smear with manual screeningon 02-15-2022 Thin prep Papanicolaou smear with manual screening 16 U/L 15-37 [facility] Work Phone: Thin prep Papanicolaou smear with manual screening 8 5-15 [facility] Work Phone: Thin prep Papanicolaou smear with manual screening 9.4 mg/L NO RANGE EST. [facility] Work Phone: Urine creatinine measurement (mass/volume)on 02-15-2022 Creatinine (U) [Mass/Vol] 257.00 mg/dL NO RANGE EST. [facility] Work Phone: Whole blood hemoglobin A1c/t otal hemoglobin ratio (mass fraction)on 02-15-2022 HbA1c (Bld) [Mass fraction] 6.6 % 3.8-5.6 [facility] Work Phone: Comment on above: Normal < 5.7 % Predi abetic 5.7 - 6.4 % Diabetic >or= 6.5 % Please note range changes. Vital Signs Date Time Vital Sign Value Performing Clinician Veritoi sudhir 02-04-2025 09:00-0400 Body temperature 98.6 [degF] Ronnie Herrera MD Work Phone: [employer] 02-04-2025 09:00-0400 Diastolic blood pressure 83 mm[Hg] Ronnie Herrera MD Work Phone: [employer] 02-04-2025 09:00-0400 Heart rate 76 /min Ronnie Herrera Work Phone: [employer] 02-04-2025 09:00-0400 Respiratory rate 18 /min Ronnie Herrera Work Phone: [employer] 02-04-2025 09:00-0400 SaO2% (BldA) [Mass fraction] 99 % Ronnie Herrera Work Phone: [employer] 02-04-2025 09:00-0400 Systolic blood pressure 134 mm[Hg] Ronnie Herrera MD Work Phone: [employer] 02-04-2025 06:00-0400 Body mass index (BMI) [Ratio] 25.09 kg/m2 Ronnie Herrera MD Work Phone: [employer] 02-04-2025 06:00-0400 Body weight 93.5 kg Ronnie Herrera Work Phone: [employer] 01-30-2025 12:22-0400 Body height 193 cm Ronnie Herrera MD Work Phone: [employer] 01-29-2025 16:03-0400 SaO2% (BldA) [Mass fraction] 99.2 % Ronnie Herrera Work Phone: [employer] 01-14-2025 08:02-0400 Diastolic blood pressure 77 mm[Hg] Ronnie Herrera Work Phone: [employer] 01-14-2025 08:02-0400 Heart rate 67 /min Ronnie Herrera Work Phone: [employer] 01-14-2025 08:02-0400 Systolic blood pressure 142 mm[Hg] Ronnie Herrera Work Phone: [employer] 01-14-2025 07:59-0400 Body height 193 cm Ronnie Herrera Work Phone: [employer] 01-14-2025 07:59-0400 Body mass index (BMI) [Ratio] 24.59 kg/m2 Ronnie Herrera Work Phone: [facility] 01-14-2025 07:59-0400 Body weight 91.63 kg Ronnie Herrera MD Work Phone: [facility] 12-25-2024 07:14-0400 Body height 193.[address] Miriam Gomez DO Work Phone: [facility] 12-25-2024 07:14-0400 Body weight 91.[address] Miriam Gomez DO Work Phone: [facility] 12-24-2024 07:58-0400 Body mass index (BMI) [Ratio] 24.5 kg/m2 Dr. Miriam Gomez DO Work Phone: [facility] 12-11-2024 08:01-0400 Body height 193.[address] Miriam Gomez DO Work Phone: [facility] 12-11-2024 08:01-0400 Body mass index (BMI) [Ratio] 24.5 kg/m2 Dr. Miriam Gomez DO Work Phone: [facility] 12-11-2024 08:01-0400 Body weight 91.[address] Miriam Gomez DO Work Phone: [facility] 12-11-2024 08:01-0400 Diastolic blood pressure 72 mm[Hg] Dr. Miriam Gomez DO Work Phone: [facility] 12-11-2024 08:01-0400 Heart rate 77 /min Dr. Miriam Gomez DO Work Phone: [facility] 12-11-2024 08:01-0400 Respiratory rate 18 /min Dr. Miriam Gomez DO Work Phone: [facility] 12-11-2024 08:01-0400 Systolic blood pressure 127 mm[Hg] Dr. Miriam Gomez DO Work Phone: [facility] Encounters Encounter Date Encounter Type Care Provider Facility Start: 02-24-2025 ambulatory Miriam Gomez Facility: [facility] Start: 01-29-2025 End: 01-29-2025 Evaluation and management of inpatient Elías Diaz DO Work Phone: [facility] Start: 01-29-2025 End: 02-04-2025 Evaluation and management of inpatient [facility] Start: 01-23-2025 End: 01-23-[address] Miriam Gomez DO Work Phone: -[facility] Start: 01-23-2025 End: 01-23-[address] Ronnie Herrera MD -Cardiovascular Services Work Phone: Start: 01-23-2025 End: 01-23-2025 ambulatory Radha PASCAL Facility:[facility] Start: 01-20-2025 End: 01-20-2025 ambulatory [facility] Start: 01-16-2025 End: 01-25-2025 Telephone encounter Ronnie Herrera MD Work Phone: [facility] Start: 01-16-2025 Non-patient / Non-visit Dr. Stone Williamson MD -[facility] Start: 01-16-2025 End: 01-16-[address] Miriam Gomez DO Work Phone: -[facility]iovascular Services Start: 01-16-2025 End: 01-16-[address] Ronnie Herrera MD -Cardiovascular Services Work Phone: Start: 01-16-2025 End: 01-16-2025 ambulatory Ronnie Herrera Facility:[facility] Start: 01-14-2025 End: 01-14-2025 Admission to same day surgery center Angela Garcia CNP Work Phone: [facility] Cardiovascular Thoracic Surgery - [place] Comment on above: CAD in [place] artery (Primary Dx); Coronary artery disease due to calcified coronary lesion Start: 01-14-2025 End: 01-14-2025 Telephone encounter Ronnie Herrera MD Work Phone: [facility] [place] Comment on above: Surgery Scheduling Start: 01-14-2025 End: 01-14-2025 Office outpatient new 60 minutes Ronnie Herrera MD Work Phone: [facility] [place] Comment on above: Coronary artery dise ase due to calcified coronary lesion (Primary Dx); Type 2 diabetes mellitus with other circulatory complication, with long-term current use of insulin (HCC) Start: 01-14-2025 End: 01-14-2025 ambulatory Angela Albertina Mandel APRN - [place] Work Phone: [facility] Thoracic [facility] - [place] Start: 12-25-2024 Non-patient / Non-visit Dr. Stone Williamson MD -[facility] Start: 12-25-[address] Miriam garces DO Work Phone: -[facility] Start: 12-25-2024 End: 12-25-2024 Admission to same day surgery center Dr. Stone Williamson MD -[facility]/Special Procedures Work Phone: Start: 12-25-2024 End: 12-25-[address] Miriam Gomez DO Work Phone: -[facility]person [facility]eds/Special Procedures Start: 12-11-2024 End: 12-11-[address] Miriam Gomez DO Work Phone: -Radiology [facility] Start: 12-11-2024 End: 12-11-2024 Patient encounter procedure Radha PASCAL -Radiology [facility] Work Phone: Start: 12-11-2024 End: 12-11-2024 Patient encounter procedure Radha PASCAL -[facility] Work Phone: Start: 12-11-2024 End: 12-11-[address] Miriam Gomez DO Work Phone: -[facility] Start: 12-11-2024 End: 12-11-2024 ambulatory Miriam Gomez Facility:[facility] Start: 12-05-2024 ambulatory Miriam Gomez Facility: [facility] Start: 12-05-2024 Non-patient / Non-visit Dr. Stone Williamson MD -[facility] Start: 12-05-2024 End: 12-05-[address] Miriam Gomez DO Work Phone: -Cardiovascular Services Start: 12-05-2024 End: 12-05-[address] Miriam Gomez DO -Cardiovascular Services Work Phone: Start: 12-05-2024 End: 12-05-2024 ambulatory Miriam [facility] Facility:[facility] Start: 02-27-2024 End: 02-27-2024 ambulatory [facility] Facility:[facility] Start: 02-23-2023 End: 02-23-2023 ambulatory [facility] Work Phone: Start: 02-23-2023 End: 02-23-2023 Patient encounter procedure [facility] Start: 02-15-2022 End: 02-15-2022 ambulatory [facility] Work Phone: Start: 02-15-2022 End: 02-15-2022 Patient encounter procedure [facility], [facility] Procedures Date Procedure Procedure Detail Performing Clinician [...] t single view Nura Kori ANTUNEZ - [facility] Work Phone: Start: 02-03-2025 Basic metabolic pane l calcium total Nura Sheikh ASSOCIATE TRAINER - [facility] Work Phone: Start: 02-02-2025 Glucose quantitative blood xcpt reagent strip Ronnie Herrera MD Work Phone: Start: 02-02-2025 Glucose quantitative blood xcpt reagent strip Ronnie Herrera MD Work Phone: Start: 02-02-2025 Basic metabolic pane l calcium total James Ho ASSOCIATE TRAINER - [facility] Work Phone: Start: 02-02-2025 Glucose quantitative blood xcpt reagent strip Ronnie Herrera MD Work Phone: Start: 02-02-2025 Basic metabolic pane l calcium total Nuratavo Sheikh APRN - [facility] Work Phone: Start: 02-02-2025 Radiologic exam ches t single view Nuratavo Sheikh APRN - [facility] Work Phone: Start: 02-02-2025 Compatibility each u nit electronic Ronnie Herrera MD Work Phone: Start: 02-01-2025 Glucose quantitative blood xcpt reagent strip Ronnie Herrera MD Work Phone: Start: 02-01-2025 End: 02-01-2025 Basic metabolic panel calcium total James Ho ASSOCIATE TRAINER - [facility] Work Phone: Start: 02-01-2025 Glucose quantitative blood xcpt reagent strip Ronnie Herrera MD Work Phone: Start: 02-01-2025 Radiologic exam ches t single view Nura Sheikh APRN - [facility] Work Phone: Start: 02-01-2025 Basic metabolic pane l calcium total Nura Sheikh APRN - [place] Work Phone: Start: 01-31-2025 Glucose quantitative blood [...] lds trcg only w/o i&r Angela Mandel ASSOCIATE TRAINER - [facility] Work Phone: Start: 01-31-2025 Glucose quantitative blood xcpt reagent strip Ronnie Herrera MD Work Phone: Start: 01-31-2025 Radiologic exam ches t single view Nura Sheikh APRN - [place] Work Phone: Start: 01-31-2025 Ecg routine ecg w/le ast 12 lds trcg only w/o i&r Nura Sheikh APRN - [place] Work Phone: Start: 01-31-2025 End: 01-31-2025 Basic metabolic panel calcium total Nura Sheikh APRN - [place] Work Phone: Start: 01-31-2025 Glucose quantitative blood [...] Hemoglobin glycosylated a1c Khushi E Curly fowler ASSOCIATE TRAINER - [facility] Work Phone: Start: 01-30-2025 End: 01-30-2025 [...] lds trcg only w/o i&r Nura Sheikh ASSOCIATE TRAINER - [facility] Work Phone: Start: 01-30-2025 Glucose quantitative blood xcpt reagent strip Ronnie Herrera MD Work Phone: Start: 01-30-2025 End: 01-30-2025 Glucose quantitative blood xcpt reagent strip Ronnie Herrera MD Work Phone: Start: 01-30-2025 Radiologic exam ches t single view Nura Shekih ASSOCIATE TRAINER - [facility] Work Phone: Start: 01-30-2025 End: 01-30-2025 Glucose quantitative blood xcpt reagent strip Ronnie Herrera MD Work Phone: Start: 01-30-2025 Glucose quantitative blood xcpt reagent strip Ronnie Herrera MD Work Phone: Start: 01-30-2025 End: 01-30-2025 Basic metabolic panel calcium total Nura Garcia [facility] Work Phone: Start: 01-29-2025 Glucose quantitative blood xcpt reagent strip Ronnie Herrera MD Work Phone: Start: 01-29-2025 End: 01-29-2025 Glucose quantitative blood xcpt reagent strip Ronnie Herrera MD Work Phone: Start: 01-29-2025 Radiologic exam ches t single view Sunny Youssef DO Work Phone: Start: 01-29-2025 End: 01-29-2025 Basic metabolic panel calcium total Angela Mandel APRN - [facility] Work Phone: Start: 01-29-2025 Radiologic exam ches t single view Nura Sheikh APRN - [facility] Work Phone: Start: 01-29-2025 Ecg routine ecg w/le ast 12 lds trcg only w/o i&r Nura Sheikh APRN - [place] Work Phone: Start: 01-29-2025 Blood gases any comb ination ph pco2 po2 co2 hco3 Ronnie Herrera MD Work Phone: Start: 01-29-2025 End: 01-29-2025 Comprehensive metabolic panel Ronnie Herrera MD Work Phone: Start: 01-29-2025 Echo transesophag r- t 2d w/prb img acquisj i&r Angela Mandel ASSOCIATE TRAINER - [facility] Work Phone: Start: 01-29-2025 ANESTHESIA CENTRAL V ENOUS LINE PLACEMENT Hay Mahajan APRN - [employer] Work Phone: Start: 01-29-2025 ANESTHESIA INTUBATION Kati Mahajan APRN - [employer] Work Phone: Start: 01-29-2025 Artl cathj/cannulj mntr/transfusion spx prq Hay Mahajan APRN - [employer]ING ENGINEER Work Phone: Start: 01-29-2025 End: 01-29-2025 Cabg w/arterial graft three arterial grafts Ronnie Herrera MD Work Phone: Start: 01-29-2025 End: 01-29-2025 Echo transesophag r-t 2d w/prb img acquisj i&r Ronnie Herrera MD Work Phone: Start: 01-29-2025 Antibody screen RONNIE KANG Comment on above: Performed By: #### L AB103, LAB15 #### Director Of Home Care Hospice: HIPOLITO WOODS ([id number]) [facility] ([address] Start: 01-29-2025 ABO and Rh group [Ty pe] in Blood by Confirmatory method Nura Sheikh ASSOCIATE TRAINER - [facility] Work Phone: Start: 01-29-2025 Blood typing serologic abo Nura Sheikh APRN - [place] Work Phone: Start: 01-29-2025 End: 01-29-2025 Comprehensive metabolic panel Nura Sheikh ASSOCIATE TRAINER - [employer] Work Phone: Start: 12-11-2024 X-ray of chest, PA a nd lateral views Dr. Miriam Gomez DO Work Phone: Plan of Treatment Date Care Activity Detail Author Start: 02-04-2026 [facility] Start: 01-30-2026 Diabetes: Estimated Glomerular Filtration Rate for Kidney Health Diabetes: Estimated Glomerular Filtration Rate for Kidney Health [facility] Start: 01-30-2026 Hemoglobin A1c measurement [facility] Start: 02-13-2025 End: 02-13-2025 ambulatory [facility] Cardiovascular Thoracic Surgery [facility] Start: 01-29-2025 End: 01-29-2025 Admission to same day surgery center 01/29/2025 12:00 PM EDT - 01/29/2025 5:00 PM EDT Surgery [facility] MA[facility] OR [address] [place] [id number] Ronnie Herrera MD [address] [place] [address] CORONARY ARTERY BYPASS GRAFT [52943 (CPT )] [facility] Comment on above: CORONARY ARTERY BYPASS GRAFT [[id number] (CPT )] Start: 01-29-2025 End: 01-29-2025 Anesthesia consultation 01/29/2025 12:00 PM EDT Anesthesia Event [facility] [address] [place] [address] Gurdeep Guillen MD [address] [place], [place] [id number] Chloe Miller, ASSOCIATE TRAINER - [employer] [address] [place], [place] [id number] [facility] Start: 01-29-2025 End: 01-29-2025 Cabg w/arterial graft three arterial grafts CORONARY ARTERY BYPASS GRAFT 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) 01/29/2025 12:00 PM EDT [facility] Operating Room Start: 01-29-2025 End: 01-29-2025 Echo transesophag r-t 2d w/prb img acquisj i&r ECHOCARDIOGRAM, TRANSESOPHAGEAL 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) 01/29/2025 12:00 PM EDT [facility] Operating [facility] Start: 01-29-2025 Subsequent hospital visit by physician 01/29/2025 12:00 PM EDT Hospital Encounter [facility] OR [address] [place] [address] Ronnie Herrera MD [address] [address] [facility] Start: 01-27-2025 End: 01-27-2025 Admission to same day surgery center 01/27/2025 7:30 AM EDT - 01/27/2025 12:30 PM EDT Surgery [facility] MA[facility] OR [address] [place] [phone] Ronnie Herrera MD [address] [id number] CORONARY ARTERY BYPASS GRAFT [34736 (CPT )] [facility] Comment on above: CORONARY ARTERY BYPASS GRAFT [65736 (CPT )] Start: 01-27-2025 End: 01-27-2025 Cabg w/arterial graft three arterial grafts CORONARY ARTERY BYPASS GRAFT 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) 01/27/2025 7:30 AM EDT [facility] Operating Room Start: 01-27-2025 End: 01-27-2025 Echo transesophag r-t 2d w/prb img acquisj i&r ECHOCARDIOGRAM, TRANSESOPHAGEAL 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) 01/27/2025 7:30 AM EDT [facility] Operating Room Start: 01-27-2025 Subsequent hospital visit by physician 01/27/2025 7:30 AM EDT Hospital Encounter [facility] [address] [place] [phone] Ronnie Herrera MD [address] [place] [address] [facility] Start: 01-20-2025 End: 01-20-2025 Admission to establishment 01/20/2025 10:00 AM EDT Pre-Admission Testing [facility] Pre-Admit Testing [address] [place] [address] Ronnie Herrera MD [address] [address] [facility] Pre-Admit Testing Start: 01-06-2025 COVID-19 Vaccine ( season) COVID-19 Vaccine ( season) [facility] Start: 01-06-2025 Influenza vaccination Influenza Vaccine (#1) [facility] Start: 01-06-2025 [facility] Start: 12-25-2024 Patient discharge [facility] Start: 2014 RSV Immunization for Adults (1 - Risk 60-74 years 1-dose series) RSV Immunization for Adults (1 - Risk 60-74 years 1-dose series) [facility] Start: 2014 [facility] Start: 2004 Zoster Vaccines (1 of 2) Zoster Vaccines (1 of 2) [facility] Start: 2004 [facility] Start: 1973 DTaP/Tdap/Td Vaccines (1 - Tdap) DTaP/Tdap/Td Vaccines (1 - Tdap) [facility] Start: 1973 [facility] Start: 1972 Diabetes: Estimated Glomerular Filtration Rate for Kidney Health Diabetes: Estimated Glomerular Filtration Rate for Kidney Health [facility] Start: 1972 Diabetes: Urine Albumin-Creatinine Ratio for Kidney Health Diabetes: Urine Albumin-Creatinine Ratio for Kidney Health [facility] Start: 1972 Hepatitis C screening [facility] Start: 1972 [facility] Start: 1966 Depression Screening Depression Screening [facility] Start: 1966 [facility] Start: 1964 Diabetic foot examination [facility] Start: 1964 Glaucoma screening [facility] Start: 1964 Preventive dental service [facility] Start: 1954 Hemoglobin A1c measurement Diabetes: Hemoglobin A1C [facility] Start: 1954 Lipid panel [facility] Start: 1954 Medicare Annual Wellness (AWV) Medicare Annual Wellness (AWV) [facility] Start: 1954 Screening for malignant neoplasm of colon [facility] Start: 1954 Thyroid stimulating hormone measurement [facility] Start: 1954 [facility] Basic metabolic 2008 panel with ionized calcium - Serum or Plasma [facility] CBC W Auto Differential panel - Blood [facility] End: 01-29-2025 Prothrombin time (PT) in Blood by Coagulation assay [facility] System Work Phone: US Carotid arteries [facility] XR Chest PA and Lateral [facility] Immunizations Immunization Date Immunization Notes Care Provider Fa cility 01-11-2024 influenza virus vacc ine, unspecified formulation Ronnie Herrera MD Work Phone: [facility] Payers Date Payer Category Payer Medicare supplementa l policy (as second payer) [id number] 2024 Self-pay [id number] 2024 Unknown [id number] 2019 Medicare [id number] 2019 Medicare [id number] 2015 Unknown [id number] Unknown [id number] Unknown [id number] Unknown [id number] Unknown [id number] Unknown [id number] Unknown [id number] Unknown [id number] Unknown [id number] Unknown [id number] Unknown [id number] Unknown [id number] Social History Date Type Detail Facility Start: 11-15-2020 Tobacco smoking stat [facility] Unknown if ever smoked [facility] Start: 1955 Sex Assigned At Male [facility] Start: 11-15-2020 End: 12-25-2024 Tobacco smoking status NHIS Never smoked tobacco (finding) [facility] Start: 01-14-2025 Tobacco use and exposure Smokeless tobacco non-user [facility] Start: 01-14-2025 End: 01-29-2025 Alcoholic beverage intake Lifetime non-drinker (finding) [facility] Start: 01-14-2025 End: 01-29-2025 History of Social function [facility] Start: 01-14-2025 End: 01-29-2025 Tobacco use panel [facility] Start: 1955 Sex assigned at Not on file [facility] Start: 12-06-2021 Sex Male (finding) [facility] Start: 01-29-2025 Gender identity Identifies as male gender (finding) [facility] Start: 01-29-2025 Sexual orientation Heterosexual (fin ding) [facility] Clinical Notes 12-11-2024 to 02-04-2025 Fam Dorsey, OT - 02/04/2025 9:35 AM EDTCaroseth Rothman, ASSOCIATE TRAINER - [employer] - 02/04/2025 9:04 AM EDTFam Dorsey, OT - 02/03/2025 2:14 PM Melva Ortiz, SERVICE DESK LEAD - 02/03/2025 2:00 PM EDTAttachments Note Date & Type Note Facility 02-04-2025 Note OCCUPATIONAL THERAPY [facility] Initial Evaluation Name/MRN: Ryan Macedo ([id number]) Evaluation Date: 02/04/2025 Date of : 1955 Admission Date: 01/29/2025 9:13 AM Age: 69 y.o. 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 Recommending home with assist as needed, is able to provide and home health OT to address slight functional deficits. Pt will continue to benefit from acute OT services while admitted to increase functional independence. Admitting Diagnosis: CAD in king salmon artery, S/p CABG x 3 on 01/29/25. [...] Problem List Diagnosis Date Noted CAD in king salmon artery 01/29/2025 Medical Precautions: No active isolations [...] Responsibilities: Independent Receives Help From: None Active Embedded Developer: Yes Prior Level of Function Prior Level [...] this session Strength: Limited by sternal precautions, university relations director strength grossly 4+/5 Bed Mobility Pt up [...] balance for 10 (more content not included)... [facility] 02-04-2025 History of Presen t illness Narrative Images from the original note were not included. OCCUPATIONAL THERAPY [facility] Initial Evaluation Name/MRN: Ryan Macedo ([id number]) Evaluation Date: 02/04/2025 Date of : 1955 Admission Date: 01/29/2025 9:13 AM Age: 69 y.o. 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 Recommending home with assist as needed, is able to provide and home health OT to address slight functional deficits. Pt will continue to benefit from acute OT services while admitted to increase functional independence. Admitting Diagnosis: CAD in king salmon artery, S/p CABG x 3 on 01/29/25. [...] Problem List Diagnosis Date Noted CAD in king salmon artery 01/29/2025 Medical Precautions: No active isolations [...] Responsibilities: Independent Receives Help From: None Active Embedded Developer: Yes Prior Level of Function Prior Level [...] this session Strength: Limited by sternal precautions, university relations director strength grossly 4+/5 Bed Mobility Pt up [...] of Care supervision is transferred to a [facility] Occupational Therapist. Goals and/or treatment [...] Requesting Consult: cts PCP: MIRIAM GOMEZ Outpt Workforce Staffing Advisor: No ASSESSMENT: Stress hyperglycemia DM2 with hyperglycemia without sales order coordinator insulin CABGx3 Htn/hld/cad PLAN: -Blood sugar variable [...] halls CT in place Ate small bfast- singaporean toast No nv noted Spoke with team [...] found for: CHOLHDLRATIO No results found for: [id number] No results found for: TSH, Z9KTKBH, Y2VPGQY, THYROIDAB Radiology reportsas per the Radiologist Radiology: [...] glucose meter Result Date: 01/30/2025 Performed by: [facility], [address] [place] [address] CLIA ID: [id number] POCT glucose meter Result Date: 01/30/2025 Performed by: [facility], [address] [place] [address] CLIA ID: [id number] ECG 12 lead Sinus rhythm Lateral infarct, acute Borderline ST elevation, anterior leads POCT glucose meter Result Date: 01/30/2025 Performed by: [address] [address] CLIA ID: [id number] POCT glucose meter Result Date: 01/30/2025 Performed by: [facility], [address] [place] [address], [facility] [address] CLIA ID: [id number] XR chest 1 view Result Date: 01/30/2025 [facility] Name: [facility]AN [facility]EDO : 1955 [id number] Exam Date/Time: 01/30/2025 05:12 Procedure: XR CHEST [...] glucose meter Result Date: 01/30/2025 Performed by: [address] [address] CLIA ID: [id number] POCT glucose meter Result Date: 01/30/2025 Performed by: [address] [address] CLIA ID: [id number] POCT glucose meter Result Date: 01/30/2025 Performed by: [facility], [address] [place] [address], [place] [address] CLIA ID: [id number] POCT glucose meter Result Date: 01/30/2025 Performed by: [facility], [address] [place] [address], [place] [address] CLIA ID: [id number] POCT glucose meter Result Date: 01/30/2025 Performed by: [facility], [address] [place] [address] [place] [address] CLIA ID: [id number] POCT glucose meter Result Date: 01/30/2025 Performed by: [facility], [address] [place] [address], [facility] [address] CLIA ID: [id number] POCT glucose meter Result Date: 01/29/2025 Performed by: [facility], [address] [place] [address] CLIA ID: [id number] POCT glucose meter Result Date: 01/29/2025 Performed by: [facility], [address] [place] [address], [facility] [address] CLIA ID: [id number] POCT glucose meter Result Date: 01/29/2025 Performed by: [facility], [address] [place] [address], [facility] [address] CLIA ID: [id number] XR chest 1 view Result Date: 01/29/2025 Patient Name: RYAN MACEDO : 1955 [facility]#: [id number] Exam Date/Time: 01/29/2025 20:00 Procedure: XR CHEST [...] glucose meter Result Date: 01/29/2025 Performed by: [facility], [address] [place] [address] CLIA ID: [id number] POCT glucose meter Result Date: 01/29/2025 Performed by: [address] [address] CLIA ID: [id number] XR chest 1 view Result Date: 01/29/2025 [...] is below the hemidiaphragm but excluded from dubmm-al-ashb. A mediastinal drain and bilateral chest tubes [...] glucose meter Result Date: 01/29/2025 Performed by: [facility], [address] [place] [address] CLIA ID: [id number] ECG 12 lead Sinus rhythm Borderline prolonged MI interval NS ST changes diffusely Electronically Signed On 01-29-2025 16:38:12 EDT by Lorne Staton POCT glucose meter Result Date: 01/29/2025 Performed by: [address] [address] CLIA ID: [id number] POCT glucose meter Result Date: 01/29/2025 Performed by: [facility], [address] [place] [address] CLIA ID: [id number] History/Other: Past Medical History: Medical History[4] Past [...] original note were not included. OCCUPATIONAL THERAPY [facility] Name/MRN: Ryan Macedo ([id number]) Date: 02/03/2025 Pt is alert and oriented [...] original note were not included. PHYSICAL THERAPY [facility] Treatment Note Name/MRN: Ryan Macedo ([id number]) Date of : 1955 Age: 69 y.o. [...] Requesting Consult: cts PCP: MIRIAM GOMEZ Outpt Workforce Staffing Advisor: No ASSESSMENT: Stress hyperglycemia DM2 with hyperglycemia without sales order coordinator insulin CABGx3 Htn/hld/cad PLAN: -Blood sugar elevated [...] halls CT in place Ate small bfast- singaporean toast No nv noted Spoke with team [...] found for: CHOLHDLRATIO No results found for: [id number] No results found for: TSH, S6GOCSQ, Z0KEHAK, THYROIDAB Radiology reportsas per the Radiologist Radiology: [...] glucose meter Result Date: 01/30/2025 Performed by: [facility], [address] [facility] [address] CLIA ID: [id number] POCT glucose meter Result Date: 01/30/2025 Performed by: [facility], [address] [place] [address] CLIA ID: [id number] ECG 12 lead Sinus rhythm Lateral infarct, acute Borderline ST elevation, anterior leads POCT glucose meter Result Date: 01/30/2025 Performed by: [address] [address] CLIA ID: [id number] POCT glucose meter Result Date: 01/30/2025 Performed by: [facility], [address] [place] [address] CLIA ID: [id number] XR chest 1 view Result Date: 01/30/2025 [...] glucose meter Result Date: 01/30/2025 Performed by: [address] [address] CLIA ID: [id number] POCT glucose meter Result Date: 01/30/2025 Performed by: [address] [address] CLIA ID: [id number] POCT glucose meter Result Date: 01/30/2025 Performed by: [address] [address] CLIA ID: [id number] POCT glucose meter Result Date: 01/30/2025 Performed by: [facility], [address] [place] [address], [place] [address] CLIA ID: [id number] POCT glucose meter Result Date: 01/30/2025 Performed by: [facility], [address] [place] [address], [place] [address] CLIA ID: [id number] POCT glucose meter Result Date: 01/30/2025 Performed by: [facility], [address] [place] [address], [place] [address] CLIA ID: [id number] POCT glucose meter Result Date: 01/29/2025 Performed by: [facility], [address] [place] [address], [place] [address] CLIA ID: [id number] POCT glucose meter Result Date: 01/29/2025 Performed by: [facility], [address] [place] [address], [place] [address] CLIA ID: [id number] POCT glucose meter Result Date: 01/29/2025 Performed by: [facility], [address] [place] [address], [facility] [address] CLIA ID: [id number] XR chest 1 view Result Date: 01/29/2025 Patient Name: RYAN MACEDO : 1955 [facility]#: [id number] Exam Date/Time: 01/29/2025 20:00 Procedure: XR CHEST [...] glucose meter Result Date: 01/29/2025 Performed by: [address] [address] CLIA ID: [id number] POCT glucose meter Result Date: 01/29/2025 Performed by: [address] [address] CLIA ID: [id number] XR chest 1 view Result Date: 01/29/2025 Patient Name: [facility]YAN [facility]EDO : 1955 [id number] Exam Date/Time: 01/29/2025 16:37 Procedure: XR CHEST [...] is below the hemidiaphragm but excluded from xvlae-eg-llsb. A mediastinal drain and bilateral chest tubes [...] glucose meter Result Date: 01/29/2025 Performed by: [address] [address] CLIA ID: [id number] ECG 12 lead Sinus rhythm Borderline prolonged MI interval NS ST changes diffusely Electronically Signed On 01-29-2025 16:38:12 EDT by Lorne Staton POCT glucose meter Result Date: 01/29/2025 Performed by: [address] [address] CLIA ID: [id number] POCT glucose meter Result Date: 01/29/2025 Performed by: [facility], [address] [place] [address], [place] [facility] CLIA ID: [id number] History/Other: Past Medical History: Medical History[4] Past [...] patient. In addition, I have reviewed the resident's/HEALTHCARE SCIENCE SPECIALIST/HOSPITALIST NOCTURNIST PHYSICIAN's care plan and agree with those findings [...] imaging are reviewed as detailed in the resident's/HEALTHCARE SCIENCE SPECIALIST/HOSPITALIST NOCTURNIST PHYSICIAN's note Chest tubes assessed, no air leak. [...] of 33 minutes were spent between the bexx-re-krvh encounter, physical exam, reviewing the medical history, coordinating the patient's care, counseling/educating the patient, ordering medications/test/procedures, interpreting results and documenting clinical information in the patients electronic health record on the day of the encounter. The patient was seen and examined Cardiac Core Medications: ASA, BB, and No statin due to allergy EF: LVEF- 55% preop Blood Conservation: None noted in post-operative period Fibreglass Gun Hand: [facility] Cosigned by Sunny Youssef DO at 02/03/2025 8:10 PM EDT Images from the original note were not included. Cardiothoracic Surgery/[facility] [place] Progress Note PATIENT NAME: Ryan Macedo DATE: [...] of 20 minutes were spent between the hcst-dc-rlto encounter, physical exam, reviewing the medical history, coordinating the patient's care, counseling/educating the patient, ordering medications/test/procedures, interpreting results and documenting clinical information in the patients electronic health record on the day of the encounter. The patient was seen and examined. Cardiac Core Medications: ASA, BB, and No statin due to allergy EF: LVEF- 55% preop Blood Conservation: None noted in post-operative period Fibreglass Gun Hand: [facility] Cosigned by Sunny Youssef DO at 02/02/2025 6:14 PM EDT Images from the original note were not included. PHYSICAL THERAPY [facility] Treatment Note Name/MRN: Ryan Macedo ([id number]) Date of : 1955 Age: 69 y.o. [...] Modified Independent Standing balance: SBA Device(s) used: Calligo Ambulation Ambulation 1 Assistive device(s) used: NezzSmart Destinations Assist level: Contact Guard Distance (ft): 355 [...] Minutes: 23 Minutes (Gt, TP) Shavon Jones SERVICE DESK LEAD Cosigned by Doreen Kerns PT at 02/02/2025 4:41 PM EDT Department of Internal Medicine Division of Endocrinology, Diabetes, & Metabolism Endocrinology Note Patient Name: Ryan Macedo : 1955 AGE: 69 y.o. Room[facility]Bed: [facility] A Admission Date: 01/29/2025 Visit Date: 02/02/2025 Reason for Endocrine Consult: post heart Provider/Team Requesting Consult: cts PCP: MIRIAM GOMEZ Outpt Workforce Staffing Advisor: No ASSESSMENT: Stress hyperglycemia DM2 with hyperglycemia without sales order coordinator insulin CABGx3 Htn/hld/cad PLAN: -Increase lantus 17 [...] halls CT in place Ate small bfast- singaporean toast No nv noted Spoke with team [...] found for: CHOLHDLRATIO No results found for: [id number] No results found for: TSH, U7JZWBH, X7CKQNJ, THYROIDAB Radiology reportsas per the Radiologist Radiology: [...] glucose meter Result Date: 01/30/2025 Performed by: [address] [address] CLIA ID: [id number] POCT glucose meter Result Date: 01/30/2025 [facility]formed by: [facility] [address] [address] CLIA ID: [id number] ECG 12 lead Sinus rhythm Lateral infarct, acute Borderline ST elevation, anterior leads POCT glucose meter Result Date: 01/30/2025 Performed by: [address] [address] CLIA ID: [id number] POCT glucose meter Result Date: 01/30/2025 Performed by: [address] [address] CLIA ID: [id number] XR chest 1 view Result Date: 01/30/2025 Patient Name: RYAN MACEDO : 1955 [facility]#: [id number] Exam Date/Time: 01/30/2025 05:12 Procedure: XR CHEST [...] glucose meter Result Date: 01/30/2025 Performed by: [facility], [address] [place] [address] CLIA ID: [id number] POCT glucose meter Result Date: 01/30/2025 Performed by: [facility], [address] [place] [address] CLIA ID: [id number] POCT glucose meter Result Date: 01/30/2025 Performed by: [facility], [address] [place] [address] CLIA ID: [id number] POCT glucose meter Result Date: 01/30/2025 Performed by: [facility] [address] CLIA ID: [id number] POCT glucose meter Result Date: 01/30/2025 Performed by: [facility] [address] [address] CLIA ID: [id number] POCT glucose meter Result Date: 01/30/2025 [facility]: [facility], [address] [place] [address] CLIA ID: [id number] POCT glucose meter Result Date: 01/29/2025 Performed by: [facility] [address] [address] CLIA ID: [id number] POCT glucose meter Result Date: 01/29/2025 Performed by: [address] [address] CLIA ID: [id number] POCT glucose meter Result Date: 01/29/2025 Performed by: [facility], [address] [place] [address] CLIA ID: [id number] XR chest 1 view Result Date: 01/29/2025 [...] glucose meter Result Date: 01/29/2025 Performed by: [address] [address] CLIA ID: [id number] POCT glucose meter Result Date: 01/29/2025 Performed by: [address] [address] CLIA ID: [id number] XR chest 1 view Result Date: 01/29/2025 [...] is below the hemidiaphragm but excluded from bkmur-mg-njjr. A mediastinal drain and bilateral chest tubes [...] glucose meter Result Date: 01/29/2025 Performed by: [address] [address] CLIA ID: [id number] ECG 12 lead Sinus rhythm Borderline prolonged MI interval NS ST changes diffusely Electronically Signed On 01-29-2025 16:38:12 EDT by Lorne Staton POCT glucose meter Result Date: 01/29/2025 Performed by: [address] [address] CLIA ID: [id number] POCT glucose meter Result Date: 01/29/2025 Performed by: [address] [address] CLIA ID: [id number] History/Other: Past Medical History: Medical History[4] Past [...] original note were not included. PHYSICAL THERAPY [facility] Treatment Note Name/MRN: Ryan Macedo ([id number]) Date of : 1955 Age: 69 y.o. [...] Macedo : 1955 AGE: 69 y.o. Room/Bed: [facility]/[address] Admission Date: 01/29/2025 Visit Date: 02/01/2025 Reason for Endocrine Consult: post heart Provider/Team Requesting Consult: cts PCP: MIRIAM GOMEZ Outpt Workforce Staffing Advisor: No ASSESSMENT: Stress hyperglycemia DM2 with hyperglycemia without residential insulin CABGx3 Htn/hld/cad PLAN: -Increase lantus 14 [...] halls CT in place Ate small bfast- singaporean toast No nv noted Spoke with team [...] found for: CHOLHDLRATIO No results found for: [id number] No results found for: TSH, Q4IYPTA, T1PRWAE, THYROIDAB Radiology reportsas per the Radiologist Radiology: [...] glucose meter Result Date: 01/30/2025 Performed by: [address] [address] CLIA ID: [id number] POCT glucose meter Result Date: 01/30/2025 Performed by: [address] [address] CLIA ID: [id number] ECG 12 lead Sinus rhythm Lateral infarct, acute Borderline ST elevation, anterior leads POCT glucose meter Result Date: 01/30/2025 Performed by: [address] [address] CLIA ID: [id number] POCT glucose meter Result Date: 01/30/2025 Performed by: [address] [address] CLIA ID: [id number] XR chest 1 view Result Date: 01/30/2025 [...] glucose meter Result Date: 01/30/2025 Performed by: [facility], [address] [place] [address] CLIA ID: [id number] POCT glucose meter Result Date: 01/30/2025 Performed by: [facility], [address] [place] [address] CLIA ID: [id number] POCT glucose meter Result Date: 01/30/2025 Performed by: [facility], [address] [place], [place] [address] [place] [address] CLIA ID: [id number] POCT glucose meter Result Date: 01/30/2025 Performed by: [facility], [address] [place], [place] [address] [place] [address] CLIA ID: [id number] POCT glucose meter Result Date: 01/30/2025 Performed by: [address] [place] [address] CLIA ID: [id number] POCT glucose meter Result Date: 01/30/2025 Performed by: [address] [place] [address] CLIA ID: [id number] POCT glucose meter Result Date: 01/29/2025 Performed by: [facility], [address] [place], [place] [address] [place] [address] CLIA ID: [id number] POCT glucose meter Result Date: 01/29/2025 Performed by: [facility], [address] [place], [place] [address] [address] CLIA ID: [id number] POCT glucose meter Result Date: 01/29/2025 Performed by: [address] [address] CLIA ID: [id number] XR chest 1 view Result Date: 01/29/2025 [...] glucose meter Result Date: 01/29/2025 Performed by: [address] [address] CLIA ID: [id number] POCT glucose meter Result Date: 01/29/2025 Performed by: [address] [address] CLIA ID: [id number] XR chest 1 view Result Date: 01/29/2025 [...] is below the hemidiaphragm but excluded from qaqwp-ke-rblj. A mediastinal drain and bilateral chest tubes [...] glucose meter Result Date: 01/29/2025 Performed by: [facility], [address] [place] [address] CLIA ID: [id number] ECG 12 lead Sinus rhythm Borderline prolonged MI interval NS ST changes diffusely Electronically Signed On 01-29-2025 16:38:12 EDT by Lorne Staton POCT glucose meter Result Date: 01/29/2025 Performed by: [address] [address] CLIA ID: [id number] POCT glucose meter Result Date: 01/29/2025 Performed by: [address] [address] CLIA ID: [id number] History/Other: Past Medical History: Medical History[4] Past [...] of 20 minutes were spent between the npqa-xa-awjc encounter, physical exam, reviewing the medical history, coordinating the patient's care, counseling/educating the patient, ordering medications/test/procedures, interpreting results and documenting clinical information in the patients electronic health record on the day of the encounter. The patient was seen and examined. Cardiac Core Medications: ASA, BB, and No statin due to allergy EF: LVEF- 55% preop Blood Conservation: None noted in post-operative period [employer] Gun [employer]: [facility] Cosigned by Sunny Youssef DO at 02/01/2025 2:02 PM EDT Physician Response Please review the following and provide your response below. Please clarify which of the following accurately describes the patient's lab value: Acquired Hypofibrinogenemia This documentation will become part of the patient's medical record. Images from the original note were not included. PHYSICAL THERAPY [facility] Treatment Note Name/MRN: Ryan Macedo ([id number]) Date of : 1955 Age: 69 y.o. [...] Requesting Consult: cts PCP: MIRIAM GOMEZ Outpt Workforce Staffing Advisor: No ASSESSMENT: Stress hyperglycemia DM2 with hyperglycemia without sales order coordinator insulin CABGx3 Htn/hld/cad PLAN: -Give lantus 12 [...] halls CT in place Ate small bfast- singaporean toast No nv noted Spoke with team [...] found for: CHOLHDLRATIO No results found for: [id number] No results found for: TSH, J8LKWWA, Q6NUGVQ, THYROIDAB Radiology reportsas per the Radiologist Radiology: [...] glucose meter Result Date: 01/30/2025 Performed by: [facility] [address] [address] CLIA ID: [id number] POCT glucose meter Result Date: 01/30/2025 Performed by: [facility] [address] [address] CLIA ID: [id number] ECG 12 lead Sinus rhythm Lateral infarct, acute Borderline ST elevation, anterior leads POCT glucose meter Result Date: 01/30/2025 Performed by: [facility], [address] [place] [address] [place] [address] CLIA ID: [id number] POCT glucose meter Result Date: 01/30/2025 Performed by: [facility], [address] [place] [address] CLIA ID: [id number] XR chest 1 view Result Date: 01/30/2025 Patient Name: RYAN MACEDO : 1955 [facility]#: [id number] Exam Date/Time: 01/30/2025 05:12 Procedure: XR CHEST [...] glucose meter Result Date: 01/30/2025 Performed by: [facility], [address] [place] [address] CLIA ID: [id number] POCT glucose meter Result Date: 01/30/2025 Performed by: [address] [address] CLIA ID: [id number] POCT glucose meter Result Date: 01/30/2025 Performed by: [address] [address] CLIA ID: [id number] POCT glucose meter Result Date: 01/30/2025 Performed by: [address] [place] [address] CLIA ID: [id number] POCT glucose meter Result Date: 01/30/2025 Performed by: [address] [address] CLIA ID: [id number] POCT glucose meter Result Date: 01/30/2025 Performed by: [facility], [address] [place] [address], [facility] [address] CLIA ID: [id number] POCT glucose meter Result Date: 01/29/2025 Performed by: [facility], [address] [place] [address], [facility] [address] CLIA ID: [id number] POCT glucose meter Result Date: 01/29/2025 Performed by: [facility], [address] [place] [address], [facility] [address] CLIA ID: [id number] POCT glucose meter Result Date: 01/29/2025 Performed by: [facility], [address] [place] [address], [facility] [address] CLIA ID: [id number] XR chest 1 view Result Date: 01/29/2025 Patient Name: RYAN MACEDO : 1955 [id number] Exam Date/Time: 01/29/2025 20:00 Procedure: XR CHEST [...] glucose meter Result Date: 01/29/2025 Performed by: [address] [address] CLIA ID: [id number] POCT glucose meter Result Date: 01/29/2025 Performed by: [address] [address] CLIA ID: [id number] XR chest 1 view Result Date: 01/29/2025 Patient Name: RYAN MACEDO : 1955 [facility]#: [id number] Exam Date/Time: 01/29/2025 16:37 Procedure: XR CHEST [...] is below the hemidiaphragm but excluded from skvqp-xe-jdhs. A mediastinal drain and bilateral chest tubes [...] glucose meter Result Date: 01/29/2025 [facility]formed by: [facility] [address] [address] CLIA ID: [id number] ECG 12 lead Sinus rhythm Borderline prolonged MI interval NS ST changes diffusely Electronically Signed On 01-29-2025 16:38:12 EDT by Lorne Staton POCT glucose meter Result Date: 01/29/2025 [facility]formed by: [facility] [address] [address] CLIA ID: [id number] POCT glucose meter Result Date: 01/29/2025 Performed by: [address] [address] CLIA ID: [id number] History/Other: Past Medical History: Medical History[4] Past [...] the original note were not included. Cardiothoracic Surgery/[facility] [place] Progress Note PATIENT NAME: Ryan Macedo DATE: [...] of 33 minutes were spent between the qcbv-he-xurc encounter, physical exam, reviewing the medical history, coordinating the patient's care, counseling/educating the patient, ordering medications/test/procedures, interpreting results and documenting clinical information in the patients electronic health record on the day of the encounter. The patient was seen and examined Cardiac Core Medications: ASA, BB, and No statin due to allergy EF: LVEF- 55% preop Blood Conservation: None noted in post-operative period Fib[employer] Gun Hand: [facility] Cosigned by Sunny Youssef DO at 01/31/2025 6:49 PM EDT Images from the original note were not included. PHYSICAL THERAPY [facility] Initial Evaluation Name/MRN: Ryan Macedo ([id number]) Evaluation Date: 01/30/2025 Date of : 1955 Admission Date: 01/29/2025 9:13 AM Age: 69 y.o. Room/Bed: T1-121/T1-121 A Discharge Recommendation: Home with assist PRN, Home with Home health PT Equipment Needed: No Assessment IMPRESSION: Pt is s/p CABG x 3 on 01/30/24. He is currently Min assist for transfers and ambulation with the Calligo cart. Limited d/t fatigue, nausea and SOB. He is Indep at baseline and lives at home with his . Anticipate he will progress throughout LOS to return to home with assist from family and home health PT. 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 S/p CABG x 3 01/29/25 Prognosis: [...] Problem List Diagnosis Date Noted CAD in king salmon artery 01/29/2025 Medical Precautions: No active isolations [...] Responsibilities: Independent Receives Help From: None Active Embedded Developer: Yes Prior Level of Function Prior Level [...] Assist Ambulation Ambulation 1 Assistive device(s) used: Calligo Assist level: Min Assist Distance (ft): 10 [...] of Care supervision is transferred to a [facility] Physical Therapist. Goals and/or treatment [...] original note were not included. OCCUPATIONAL THERAPY [facility] Name/MRN: Ryan Macedo ([id number]) Date: 01/30/2025 Evaluation is being deferred at [...] Blood Conservation: None noted in post-operative period Fibreglass Gun Hand: [facility] Cosigned by Sunny Youssef DO at 01/30/2025 10:12 AM EDT Associated attestation - Sunny Youssef DO - 01/30/2025 10:12 AM EDT Images from the original note were not included. I have personally performed a cmby-do-ztau diagnostic evaluation on this patient on date of service 01/30/25. History, labs, imaging studies, and electronic medical record have been reviewed by me. This note documented by the []Critical Care Fellow []retail warehouse supervisor [x]KIM reflects my history, exam, and medical [...] procedures. Electronically signed by Sunny Youssef DO [facility] Respiratory Care Department Progress Note Spontaneous [...] results Recent Labs 01/29/25 1521 PHART 7.430 JGQ9LPI 35.4 PO2ART 324.4* GIC8VFT 23.0 S6KSXSXW Ventilator Does this patient meet criteria for termination of mechanical ventilation Yes- Notified physician below Name of physician notified via secure chat or in person : David (NA if patient did not meet criteria) Comments: Thank you for involving Respiratory in the care of this patient, documented in this encounter [facility] 02-04-2025 Note Discharge Summary: C ardiothoracic Surgery Ryan Macedo, 69 y.o., 1955 ADMIT DATE: 01/29/2025 DISCHARGE DATE: 02/04/2025 VISIT STATUS: Admission CODE STATUS: Full Code DISCHARGING SURGEON: Ronnie Herrera MD, Office Number: [phone] DISCHARGE DIAGNOSES: MVCAD s/p CABGx3 GERD HTN HLD OA DM Post operative Pulm Management: Normal Post-operative Course Post-operative Atrial Fibrillation: Yes Acute blood loss anemia BMI CLASSIFICATION:Overweight (BMI 25.0-29.9) TREATMENT TEAM: Primary Care Physician: MIRIAM GOMEZ Fibreglass Gun Hand: Dr. Vika Ye cardiology SURGERY: 01/29/25- CABG x3 (FAIR-LAD, SVG-OM1, SVG-RPDA), [facility] with Dr. Herrera HOSPITAL COURSE: 69 y.o.male [...] Your Medications These medications were sent to [facility] [address] [place] [address] Hours: Monday to Monday 10 am to 6 pm acetaminophen 500 MG tablet amiodarone 200 MG tablet naif (more content not included)... [facility] 02-04-2025 Hospital course Narrative Images from the original note were not included. Discharge Summary: Cardiothoracic Surgery Ryan Macedo, 69 y.o., 1955 ADMIT DATE: 01/29/2025 DISCHARGE DATE: 02/04/2025 VISIT STATUS: Admission CODE STATUS: Full Code DISCHARGING SURGEON: Ronnie Herrera MD, Office Number: [phone] DISCHARGE DIAGNOSES: MVCAD s/p CABGx3 GERD HTN HLD OA DM Post operative Pulm Management: Normal Post-operative Course Post-operative Atrial Fibrillation: Yes Acute blood loss anemia BMI CLASSIFICATION:Overweight (BMI 25.0-29.9) TREATMENT TEAM: Primary Care Physician: MIRIAM GOMEZ Fibreglass Gun Hand[facility]: 01/29/25- CABG x3 (FAIR-LAD, SVG-OM1, [...] Your Medications These medications were sent to [facility] [address] [place] [address] Hours: Monday to Monday 10 am to [...] UP: Rebeca Mandel APRN 02/13/25 @ 10am [address] [place], [place] [id number] Dept: [phone] Dept CORE CARDIAC MEDICATIONS PRESCRIBED AT DISCHARGE: [...] 1:46 PM EDT documented in this encounter [facility] 02-04-2025 Hospital Discharg e instructions HARMONY Paulino CNP - 02/04/2025 9:12 AM EDT Images from the original note were not included. [facility]: Cardiothoracic Surgery [address] [place] [address]. [address] [facility] #[phone] Notify us if the following occur - [...] Cardiothoracic Surgery: Symptom Management Office phone number: [phone] Office is open 8:30 am -4 pm. [...] Call cardiothoracic surgery line for further instructions: [phone] Office is open 8:30 am -4 pm. [...] Problems Problem List * (Principal) CAD in king salmon artery Isolation/Infection: No active isolations No active [...] 12.8 oz) Mental Status: {BALBINA Patient Mental Status:97714} IV Access: {BALBINA IV Access:94138} Nursing Mobility/ADLs: Walking {LASHONDA ADL:22737::Independent} Transfer {LASHONDA ADL:17772::Independent} Bathing {LASHONDA ADL:99430::Independent} Dressing {LASHONDA ADL:67536::Independent} Toileting {LASHONDA ADL:::Independent} Feeding {LASHONDA ADL:07852::Independent} Sail Maker {LASHONDA ADL:::Independent} Med Delivery {yes/no:36209} Wound Care Documentation and Therapy: Wound/Incision 01/29/25 [...] Number of days: 1 Elimination: Continence: Bowel: {yes/no:86454} Bladder: {yes/no:15412} Urinary Catheter: {BALBINA Urinary Catheter:76829} Colostomy/Ileostomy/Ileal Conduit: {YES / NO:} Date of [...] Weight: 99.7 kg Safety Concerns: {BALBINA Safety Concerns:36263} Impairments/Disabilities: {BALBINA Impairments/Disabilities:08341} Nutrition Therapy: Current Nutrition Therapy: {BALBINA Diet List:72349} Routes of Feeding: {routes of feedin} Liquids: {liquid consistency:22954} Daily Fluid Restriction: {daily fluid restriction:72141} Last Modified Barium Swallow with Video (Video Swallowing Test): {done not done:76162} Treatments at the Time of Hospital Discharge: Respiratory Treatments: Oxygen Therapy: {Therapy; copd oxygen:24848} Ventilator: {BALBINA Ventilator:18304} Rehab Therapies: {GEN THERAPY DISCIPLINE SCAL:3501799} Weight Bearing Status/Restrictions: {POD WEIGHT BEARIN} Other Medical Equipment (for information only, NOT a DME order): {Assistive Devices DME:73926} Other Treatments: Patient's personal belongings (please select all that are sent with patient): {BALBINA Patient Belongings:98964} RN SIGNATURE: {E-signature:89824} CASE MANAGEMENT/SOCIAL WORK SECTION Inpatient Status Date: Discharging to Facility/ Agency Name: [facility] Address: [address] [place] [address] Dialysis Facility (if applicable) Name: Address: Dialysis Schedule: Phone: Fax: Commercial Field Inspector/Marketing Operations Consultant signature: {E-signature:81059} PHYSICIAN SECTION Name: Ryan Macedo Prognosis: {Rehab Prognosis:66897} Condition at Discharge: {Patient Condition:93034} Rehab Potential (if transferring to Rehab): {Rehab Prognosis:61449} Recommended Labs or Other Treatments After Discharge: The individual is being admitted to a nursing facility directly from an [facility] or a unit of a [facility] that is not operated by or licensed by [facility] under section 5119.14 or 5160-3-15.1 5 The individual requires the level of services provided by a nursing facility for the condition for which he or she was treated in the hospital and, Physician Certification: I certify the above information and transfer of Ryan Macedo is necessary for the continuing treatment of the diagnosis listed and that he requires {BALBINA Level of Care:43598} for {greater less than:05598} 30 days. Update Admission H&P: {BALBINA Changes in H&P:98143} PHYSICIAN SIGNATURE: {E-signature:48023} The following attachments cannot be sent through Care Everywhere.Heart Healthy Diet (Dutch)Dietary Fats (Dutch)documented in this encounter [facility] 02-03-2025 Note Care Management Prog ress Note [...] given to speak with patient sales representative womens health/caregiver as indicated: Yes (Included Gela in conversation) Confirmation of Payer with patient/family: Yes Payer Name: [employer] with MMO Medicare supplement [place]: No Confirmation of Primary Care Physician: Confirmed PCP Name: Dr. Miriam garces, [facility] Seen in last 2 years?: Yes [...] Living Prescription Coverage: Yes Pharmacy Used: [facility] [place], [place] Medication Management: Independent Transportation/Shopping: Independent Transportation [...] to surgery and is planning home with [facility] at discharge. He denied any TCC needs at this time. TCC team will continue to follow. Rajwinder Gasca RN [facility] 02-03-2025 Miscellaneous Notes Care Management Progress Note [...] given to speak with patient sales representative womens health/caregiver as indicated: Yes (Included Gela in conversation) Confirmation of Payer with patient/family: Yes Payer Name: [facility] A & B with MMO Medicare supplement : No Confirmation of Primary Care Physician: Confirmed PCP Name: Dr. Miriam Wiggins [place], [facility] Seen in last 2 years?: Yes [...] to surgery and is planning home with [facility] at discharge. He denied any TCC needs at this time. TCC team will continue to follow. Rajwinder Gasca RN Patient Choice Patient Name: RYAN MACEDO Date of : 1955 All Providers Sent Referral Name: [facility] Phone: [phone] Address: [address] [place] [id number] Start PACC Note Home Health Referral Educated [...] is noted as yes - consider a MOTOR VEHICLE EMISSIONS INSPECTOR evaluation once the patient returns home. START PATIENT REGISTRATION INFORMATION Order Information Order Signing Physician: Ronnie Herrera MD Service Ordered RN ?: Yes Service Ordered PT ?: Yes Service Ordered OT ?: No Service Ordered ST ?: No Service Ordered MOTOR VEHICLE EMISSIONS INSPECTOR?:No Service Ordered DIRECT SUPPORT STAFF MEMBER?: No Following Physician: Ronnie Herrera MD Following Physician Overseeing Physician: Ronnie Herrera MD (Required for Residents only) Agreeable to Follow? Yes Date/Time of Call 01/31/25 11:39 AM, Spoke with: cts protocol Care Coordination Same Day SOC?: No Primary Care Physician: MIRIAM GOMEZ Primary Care Physician Primary Care Physician Address: [address] [place] [address] Angie / [place] [address] Visit Instructions: N/A Service Discharge Location Type: Home with Home Care Service Facility Name: N/A Service Floor Facility: N/A Service Room No: N/A Demographics Patient Last Name: Delano Patient First Name: Ryan Language/Communication Barrier: no Service Address: [address] [place] [address]: [facility] ST: [place] Service ZIP: [address] Service Other phone numbers: Telephone Information: Emergency Contact: Extended Emergency Contact Information Primary Emergency Contact: Gela Macedo Relation: Spouse Admission Information Admit Date: 01/29/2025 Patient status at discharge: Inpatient Admitting Diagnosis: 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 Activity/Weight Bearing: -Up with assistance: up in chair for all meals, ambulate 3-4 times a day -Stretching exercises per PT discharge instructions Discharge Date: pending Referral Source-PACC: (Hospital/Unit): [facility] / T1-121/T1121 A End PACC Note Care Management Progress Note Short Medical why still here: Tcc chart review complete, ot eval pend, iv amio and insulin, right internal jugular triple lumen, right internal jugular introducer, sanchez, chest tube x3, HR and BP elevated, tcc to follow Planned Discharge Disposition: Home or Self Care Barriers/Today we still Wait: Administering IV medications, Clinical stability, Armoring Machine Operator recommendations (comment), Symptomatic control Length of Stay [...] intraoperative transesophageal echocardiography Surgeon: Ronnie Herrera MD Shear Tender(s): [] Alex Sims [] Juan Leong [x] [...] right coronary artery (with collateral reconstitution via nyrg-fo-bwcza collaterals), and 90% stenosis at the ostium [...] protected. An appropriate timeout was conducted. [facility] [place] [facility] Cardiop[facility] Bypass: A LEFT [...] proceeded with closure. The sternum was reapproximated kwzynz-de-cnslx wires and the overlying tissues were closed in multiple layers. The patient was transported to the intensive care unit in serious but stable condition. Stop sign placed at computer documented in this encounter [facility] 02-03-2025 Note Cardiothoracic Surge ry/CCM Progress Note [...] of 33 minutes were spent between the gxbj-sy-gcjm encounter, physical exam, reviewing the medical history, coordinating the patient's care, counseling/educating the patient, ordering medications/test/procedures, interpreting results and documenting clinical information in the patients electronic health record on the day of the encounter. The patient was seen and examined Cardiac Core Medications: ASA, BB, and No statin due to allergy EF: LVEF- 55% preop Blood Conservation: None noted in post-operative period Fibreglass Gun Hand: [place] [facility] 02-03-2025 Nurse Note Wound Care consulted for [...] at this time. documented in this encounter [facility] 02-02-2025 Note Cardiothoracic Surge ry/CCM Progress Note [...] of 20 minutes were spent between the ppiu-ou-hbnl encounter, physical exam, reviewing the medical history, coordinating the patient's care, counseling/educating the patient, ordering medications/test/procedures, interpreting results and documenting clinical information in the patients electronic health record on the day of the encounter. The patient was seen and examined. Cardiac Core Medications: ASA, BB, and No statin due to allergy EF: LVEF- 55% preop Blood Conservation: None noted in post-operative period Fibreglass Gun Hand: [place] [facility] 02-01-2025 Note Cardiothoracic Surge ry/CCM Progress Note [...] of 20 minutes were spent between the jttj-iq-ibym encounter, physical exam, reviewing the medical history, coordinating the patient's care, counseling/educating the patient, ordering medications/test/procedures, interpreting results and documenting clinical information in the patients electronic health record on the day of the encounter. The patient was seen and examined. Cardiac Core Medications: ASA, BB, and No statin due to allergy EF: LVEF- 55% preop Blood Conservation: None noted in post-operative period Fibreglass Gun Hand: [place] [facility] 01-31-2025 Note Start PACC Note Home Health Referral Educated patient and on Home Care and services available. Patient offered choice of available HHC and agreeable to SN/PT services with [facility] - Home Care. Care Types: [...] is noted as yes - consider a MOTOR VEHICLE EMISSIONS INSPECTOR evaluation once the patient returns home. START PATIENT REGISTRATION INFORMATION Order Information Order Signing Physician: Ronnie Herrera MD Service Ordered RN ?: Yes Service Ordered PT ?: Yes Service Ordered OT ?: No Service Ordered ST ?: No Service Ordered MOTOR VEHICLE EMISSIONS INSPECTOR?:No Service Ordered DIRECT SUPPORT STAFF MEMBER?: No Following Physician: Ronnie Herrera MD Following Physician Overseeing Physician: Ronnie Herrera MD (Required for Residents only) Agreeable to Follow? Yes Date/Time of Call 01/31/25 11:39 AM, Spoke with: cts protocol Care Coordination Same Day SOC?: No Primary Care Physician: MIRIAM GOMEZ Primary Care Physician Primary Care Physician Address: [address] [place] [phone] Visit Instructions: N/A Service Discharge Location Type: Home with Home Care Service Facility Name: N/A Service Floor Facility: N/A Service Room No: N/A Demographics Patient Last Name: Delano Patient First Name: Ryan Language/Communication Barrier: no Service Address: [address] [place] [address] Service City: [facility] ST: [place] Service ZIP: [address] Service Other phone numbers: Telephone Information: Emergency Contact: Extended Emergency Contact Information Primary Emergency Contact: DelanoGela Relation: Spouse Admission Information Admit Date: 01/29/2025 Patient status at discharge: Inpatient Admitting Diagnosis: 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 Activity/Weight Bearing: -Up with assistance: up in chair for all meals, ambulate 3-4 times a day -Stretching exercises per PT discharge instructions Discharge Date: pending Referral Source-PACC: (Hospital/Unit): [facility] / / A End PACC Note [facility] 01-31-2025 Note Received referral an d reviewed chart. Phase II Cardiopulmonary Rehab Referral discussed with Ryan Macedo. Patient prefers cardiopulmonary rehab at [place]. Given information on program at preferred location. [facility] 01-31-2025 Consult note Formatting of th is note might be different from the original. Received referral and reviewed chart. Phase II Cardiopulmonary Rehab Referral discussed with Ryan Macedo. Patient prefers cardiopulmonary rehab at [place]. Given information on program at preferred location. [...] On: Kcal/kg Weight Used for Energy Requirements: [place] Weight for Energy Calculation (kg): 91.6 kg (25-30 kcal/kg) Total Energy Requirements (kcals/day): 9518-2780 Weight Used for Protein Requirements: [place] Weight in Kg Used for Protein Requirements: [...] Admission Body Weight: 88.9 kg (196 lb) [place] Body Weight (lbs) (Calculated): 202 lbs [place] Body Weight (Kg) (Calculated): 92 kg % [place] Body Weight (Calculated): 101.7 % BMI (kg/m2) [...] to determine Sarah Tom RD, LD Contact: *[phone] or via [employer] chat [1] acetaminophen, 1,000 mg, Oral, q8h [...] Macedo : 1955 AGE: 69 y.o. Room/Bed: [facility]121/[facility] A Admission Date: 01/29/2025 Visit Date: 01/30/2025 Reason for Endocrine Consult: post heart Provider/Team Requesting Consult: cts PCP: MIRIAM GOMEZ Outpt Workforce Staffing Advisor: No ASSESSMENT: Stress hyperglycemia DM2 with hyperglycemia without sales order coordinator insulin CABGx3 Htn/hld/cad PLAN: For now continue [...] found for: CHOLHDLRATIO No results found for: [id number] No results found for: TSH, B1QXLRF, V1JTQKH, THYROIDAB Radiology reportsas per the Radiologist Radiology: [...] glucose meter Result Date: 01/30/2025 Performed by: [address] [address] CLIA ID: [id number] POCT glucose meter Result Date: 01/30/2025 Performed by: [address] [address] CLIA ID: [id number] ECG 12 lead Sinus rhythm Lateral infarct, acute Borderline ST elevation, anterior leads POCT glucose meter Result Date: 01/30/2025 Performed by: [facility], [address] [place] [address] CLIA ID: [id number] POCT glucose meter Result Date: 01/30/2025 Performed by: [facility], [address] [place] [address] CLIA ID: [id number] XR chest 1 view Result Date: 01/30/2025 Patient Name: RYAN MACEDO : 1955 [id number] Exam Date/Time: 01/30/2025 05:12 Procedure: XR CHEST [...] glucose meter Result Date: 01/30/2025 Performed by: [facility], [address] [place] [address] CLIA ID: [id number] POCT glucose meter Result Date: 01/30/2025 Performed by: [address] [address] CLIA ID: [id number] POCT glucose meter Result Date: 01/30/2025 Performed by: [facility], [address] [place] [address], [place] [address] CLIA ID: [id number] POCT glucose meter Result Date: 01/30/2025 Performed by: [facility], [address] [place] [address], [place] [address] CLIA ID: [id number] POCT glucose meter Result Date: 01/30/2025 Performed by: [facility], [address] [place] [address], [place] [address] CLIA ID: [id number] POCT glucose meter Result Date: 01/30/2025 Performed by: [facility], [address] [place] [address], [place] [address] CLIA ID: [id number] POCT glucose meter Result Date: 01/29/2025 Performed by: [facility], [address] [place] [address], [place] [address] CLIA ID: [id number] POCT glucose meter Result Date: 01/29/2025 Performed by: [facility], [address] [place] [address], [place] [address] CLIA ID: [id number] POCT glucose meter Result Date: 01/29/2025 Performed by: [facility], [address] [place] [address], [place] [address] CLIA ID: [id number] XR chest 1 view Result Date: 01/29/2025 Patient Name: RYAN MACEDO : 1955 [facility]#: [id number] Exam Date/Time: 01/29/2025 20:00 Procedure: XR CHEST [...] glucose meter Result Date: 01/29/2025 Performed by: [address] [address] CLIA ID: [id number] POCT glucose meter Result Date: 01/29/2025 Performed by: [address] [address] CLIA ID: [id number] XR chest 1 view Result Date: 01/29/2025 [...] is below the hemidiaphragm but excluded from bwpoa-ob-fcam. A mediastinal drain and bilateral chest tubes [...] glucose meter Result Date: 01/29/2025 Performed by: [facility], [address] [place] [address] CLIA ID: [id number] ECG 12 lead Sinus rhythm Borderline prolonged MI interval NS ST changes diffusely Electronically Signed On 01-29-2025 16:38:12 EDT by Lorne Staton POCT glucose meter Result Date: 01/29/2025 Performed by: [address] [address] CLIA ID: [id number] POCT glucose meter Result Date: 01/29/2025 Performed by: [facility], [address] [place] [address] CLIA ID: [id number] History/Other: Past Medical History: Medical History[4] Past [...] I discussed management with the Nurse Practitioner (HOSPITALIST NOCTURNIST PHYSICIAN). I reviewed the HOSPITALIST NOCTURNIST PHYSICIAN's note and agree with the documented findings and plan of care. Thank you so much for the consult. Should you have any questions please don t hesitate to contact us. Images from the original note were not included. [facility]: Critical Care Consultation Note Date: 01/29/25 [...] occlude nasal passage. 01/14/25 Yes Angela Mandel, ASSOCIATE TRAINER - [employer] cholecalciferol (Vitamin D-3) 50 MCG (1999) capsule [...] PM EDT I have personally performed a jcls-pm-bnsc diagnostic evaluation on this patient on date of service 01/29/25. History, labs, imaging studies, and electronic medical record have been reviewed by me. This note documented by the []Critical Care Fellow []retail warehouse supervisor [x]KIM reflects my history, exam, and medical [...] physicians, excluding procedures. documented in this encounter [facility] 01-31-2025 Note Care Management Prog ress Note Short Medical why still here: Tcc chart review complete, ot eval pend, iv amio and insulin, right internal jugular triple lumen, right internal jugular introducer, sanchez, chest tube x3, HR and BP elevated, tcc to follow Planned Discharge Disposition: Home or Self Care Barriers/Today we still Wait: Administering IV medications, Clinical stability, Armoring Machine Operator recommendations (comment), Symptomatic control Length of Stay (Days): 2 GMLOS: 5.8 [facility] 01-31-2025 Note Cardiothoracic Surge ry/CCM Progress Note [...] of 33 minutes were spent between the bcly-ug-xqpa encounter, physical exam, reviewing the medical history, coordinating the patient's care, counseling/educating the patient, ordering medications/test/procedures, interpreting results and documenting clinical information in the patients electronic health record on the day of the encounter. The patient was seen and examined Cardiac Core Medications: ASA, BB, and No statin due to allergy EF: LVEF- 55% preop Blood Conservation: None noted in post-operative period Fibreglass Gun Hand: [place] [facility] 01-30-2025 Note Nutrition Assessment Type and Reason [...] On: Kcal/kg Weight Used for Energy Requirements: [place] Weight for Energy Calculation (kg): 91.6 kg (25-30 kcal/kg) Total Energy Requirements (kcals/day): 9694-1460 Weight Used for Protein Requirements: [place] Weight in Kg Used for Protein Requirements: [...] Admission Body Weight: 88.9 kg (196 lb) [place] Body Weight (lbs) (Calculated): 202 lbs [place] Body Weight (Kg) (Calculated): 92 kg % [place] Body Weight (Calculated): 101.7 % BMI (kg/m2) [...] to determine Sarah Tom RD, LD Contact: *[phone] or via [employer] chat [1] acetaminophen, 1,000 mg, Oral, q8h [...] mL/hr, Last Rate: 20 mL/hr (01/29/25 1730) [facility] 01-30-2025 Note PHYSICAL THERAPY [facility] Initial Evaluation Name/MRN: Ryan Macedo ([id number]) Evaluation Date: 01/30/2025 Date of : 1955 Admission Date: 01/29/2025 9:13 AM Age: 69 y.o. Room/Bed: T1-121/T1-121 A Discharge Recommendation: Home with assist PRN, Home with Home health PT Equipment Needed: No Assessment IMPRESSION: Pt is s/p CABG x 3 on 01/30/24. He is currently Min assist for transfers and ambulation with the Calligo cart. Limited d/t fatigue, nausea and SOB. He is Indep at baseline and lives at home with his . Anticipate he will progress throughout LOS to return to home with assist from family and home health PT. 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 S/p CABG x 3 01/29/25 Prognosis: [...] Problem List Diagnosis Date Noted CAD in king salmon artery 01/29/2025 Medical Precautions: No active isolations [...] Responsibilities: Independent Receives Help From: None Active Embedded Developer: Yes Prior Level of Function Prior Level [...] Assist Ambulation Ambulation 1 Assistive device(s) used: Calligo Assist level: Min Assist Distance (ft): 10 [...] Recommendations, Benefits o (more content not included)... [facility] 01-30-2025 Note Received referral an d reviewed chart. Unable to discuss Phase II Cardiopulmonary Rehab Referral with Ryan Macedo at this time. Will follow to discuss program when appropriate. Patient will be contacted at home if discharged prior to discussion. [facility] 01-29-2025 Note Formatting of this n ote is different from the original. Addendum created 01/29/252202 by HARMONY Naik CRNA Review and Sign - Ready for Procedure [facility] 01-29-2025 Note Addendum created 2202 by HARMONY Naik CRNA Review and Sign - Ready for Procedure [facility] 01-29-2025 Miscellaneous Notes Addendum created 01/29/252202 by HARMONY Naik CRNA Review and Sign - Ready for Procedure Patient: Ryan Macedo Procedure Summary Date: 01/29/25 Room / Location: [facility] Operating Room Anesthesia Start: 1155 Anesthesia Stop: 1629 Procedures: CORONARY ARTERY BYPASS GRAFT (Chest) ECHOCARDIOGRAM, TRANSESOPHAGEAL Diagnosis: 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 angina [...] has been met. documented in this encounter [facility] 01-29-2025 Note [facility] Respiratory Care Department Progress Note Spontaneous [...] results Recent Labs 01/29/25 1521 PHART 7.430 JXN5MEC 35.4 PO2ART 324.4* USJ4TXI 23.0 Q1CRPDPQ Ventilator Does this patient meet criteria for termination of mechanical ventilation Yes- Notified physician below Name of physician notified via secure chat or in person : David (NA if patient did not meet criteria) Comments: Thank you for involving Respiratory in the care of this patient, [facility] 01-29-2025 Note Formatting of this n ote is different from the original. Patient: Ryan Macedo Procedure Summary Date: 01/29/25 Room / Location: [facility] OR [address] [place] [address] Operating Room Anesthesia Start: 115 Anesthesia Stop: 1628 Procedures: CORONARY ARTERY BYPASS GRAFT (Chest) ECHOCARDIOGRAM, TRANSESOPHAGEAL Diagnosis: 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 angina [...] all PACU criteria has been met. T [facility] 01-29-2025 Note Patient: Ryan wiggins Procedure Summary Date: 01/29/25 Room / Location: [address] Operating Room Anesthesia Start: 1154 Anesthesia Stop: 1628 Procedures: CORONARY ARTERY BYPASS GRAFT (Chest) ECHOCARDIOGRAM, TRANSESOPHAGEAL Diagnosis: 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 angina [...] once all PACU criteria has been met. [facility] 01-29-2025 Anesthesiology Postoperative evaluation and management note Patient: Ryan Macedo Procedure Summary Date: 01/29/25 Room / Location: [place] [address] Operating Room Anesthesia Start: 1155 Anesthesia Stop: 1629 Procedures: CORONARY ARTERY BYPASS GRAFT (Chest) ECHOCARDIOGRAM, TRANSESOPHAGEAL Diagnosis: 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 angina [...] #430 PONV Patient received an inhalational anesthetic (8734F) Patient does not exhibit three or more [...] opportunity for questions and acknowledgement of understanding. L [employer] Phone: 01-29-2025 Note Patient: Ryan wiggins Procedure Summary Date: 01/29/25 Room / Location: [place] [address] [facility] Operating Room Anesthesia Start: 1155 Anesthesia Stop: 1629 Procedures: CORONARY ARTERY BYPASS GRAFT (Chest) ECHOCARDIOGRAM, TRANSESOPHAGEAL Diagnosis: 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 angina [...] opportunity for questions and acknowledgement of understanding. [facility] 01-29-2025 Surgical operatio n note Patient: Ryan Macedo Procedure Summary Date: 01/29/25 Room / Location: [facility] Operating Room Anesthesia Start: 1155 Anesthesia Stop: 1629 Procedures: CORONARY ARTERY BYPASS GRAFT (Chest) ECHOCARDIOGRAM, TRANSESOPHAGEAL Diagnosis: 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 angina [...] procedure well with no complications. Staffing Performed: [facility] and anesthesiologist Anesthesiologist: Elías Diaz DO Associated [...] procedure well with no complications. Staffing Performed: [facility] Anesthesiologist: Elías Diaz DO Resident/ADVANCED MANUFACTURING ENGINEER: HARMONY Naik CRNA Associated Order(s): Airway Airway Date/Time: 01/29/2025 12:08 PM Reason: scheduled Airway not difficult General Information and Staff Patient location during procedure: Procedural Anesthesiologist: Elías Diaz DO Resident/ADVANCED MANUFACTURING ENGINEER: HARMONY Naik CRNA Performed: [facility] Patient Condition Indications for airway management: anesthesia [...] ARTERY BYPASS GRAFT (Chest) ECHOCARDIOGRAM, TRANSESOPHAGEAL Location: [facility] OR Operating Room Surgeons: Ronnie Herrera MD Relevant Problems Cardio (+) CAD in king salmon artery Past Medical History: Past Medical History: [...] artery disease Brother documented in this encounter [facility] 01-29-2025 Procedure anesthe nakia Narrative Procedure Name [...] 1629 AN ANA M Placed By: BEAU Larkni Name Total perfusion prime builder 500 mL [...] Left; LEFT SAPHENOUS EVH 01/29/25 1303 by Sia Garcia RN Chest Tube Placement Date: 01/29/25; [...] 01/29/25; 1800 01/29/25 1624 by Little Ortega, [facility] 01/29/25 1800 by Radha Landa RN documented [facility] this [id number] Anesthesiology procedure note* Anesthesia Procedure Notes - Hay Mahajan APRN - ADVANCED MANUFACTURING ENGINEER - 01/29/2025 1:11 PM EDTAssociated Order(s): Central [...] SHANDA and anesthesiologist Anesthesiologist: Elías Diaz, DO L [employer] Phone: 1(743) 614-309209-24-2025 NoteCentral Venous Line: Date/Time: 01/29/2025 12:25 PM [...] Staffing Performed: SHANDA and anesthesiologist Anesthesiologist: [facility] Anesthesiology procedure note* Anesthesia Procedure Notes [...] Staffing Performed: SHANDA Anesthesiologist: Elías Diaz DO Resident/ADVANCED MANUFACTURING ENGINEER: HARMONY Naik CRNA [facility]09-24-2025 NoteArterial Line: Date/Time: 01/29/2025 12:05 PM An [...] Staffing Performed: SHANDA Anesthesiologist: Elías Diaz DO Resident/ADVANCED MANUFACTURING ENGINEER: HARMONY [facility] Anesthesiology procedure note* Anesthesia Procedure Notes - HARMONY Naik CRNA - 01/29/2025 1:09 PM EDTAssociated Order(s): Airway Airway Date/Time: 01/29/2025 12:08 PM Reason: scheduled Airway not difficult General Information and Staff Patient location during procedure: Procedural Anesthesiologist: Elías Diaz DO Resident/ADVANCED MANUFACTURING ENGINEER: HARMONY Naik CRNA Performed: [facility] Patient Condition Indications for airway management: anesthesia [...] 1 Number of other approaches attempted: 0 [place] [id number] NoteAirway Date/Time: 01/29/2025 12:08 PM Reason: scheduled Airway not difficult General Information and Staff Patient location during procedure: Procedural Anesthesiologist: Elías Diaz DO Resident/ADVANCED MANUFACTURING ENGINEER: HARMONY Naik CRNA Performed: SRNA Patient Condition [...] approach: 1 Number of other approaches attempted: 0[facility]09-[facility]2025 NoteH&P reviewed. The patient was examined and there are no changes to the H&P.[facility]09-24[facility] History and physical note* Ronnie Herrera MD - 01/29/2025 11:07 AM EDT H&P reviewed. The patient was examined and there are no changes to the H&P. Source Note - Ronnie Herrera MD - 01/14/2025 8:00 AM EDT Images from the original note were not included. [facility] CARDIOVASCULAR & THORACIC SURGERY [address] COUNTS INCLUDE 234 BEDS AT THE [facility] [address] Dept: [phone] Dept Loc: [phone] Visit type: New Reason for Visit: Multivessel coronary artery disease-evaluate for CABG Assessment and plan 69-year-old patient with diabetes mellitus who has had exertional dyspnea underwent a stress test which was abnormal. A subsequent cardiac catheterization revealed multivessel coronary artery diseasewith a chronically occluded right coronary artery (with collateral reconstitution via [id number]-rt-nnsrhfswthkhviqp), and 90% stenosis at the ostium of [...] Cardiology: Stone Williamson MD ?? Comorbidity & CARE HOME/CC Extraction Cardiac Multivessel CAD with chronic RCA occlusion ICD-10: I25.10 (atherosclerotic heart disease), I25.82 (chronic total occlusion) Evidence: cath showing RCA SOFTWARE DEVELOPER CONSULTANT, LAD 70% proximal stenosis, OM1 90% ostial. [...] Not comorbidities but impact med management. ?? CARE HOME/CC Capture Class Condition ICD-10 Evidence Missing Specificity CARE HOME None currently -- -- No acute renal [...] This note may have been dictated using [employer] Practice Edition 2.6 and/or Cuculus Voice Recognition Feature. The document was proofread, however unrecognized voice recognition transmission supervisor errors may be present. documented in this [facility]09-19-2025 Anesthesiology Preoperative evaluation and management note* Anesthesia Preprocedure Evaluation - Elías Angie DO Joe - 01/24/2025 6:42 AM EDT Patient: Ryan Macedo Procedure Information Date/Time: 01/27/25729 Procedures: CORONARY ARTERY BYPASS GRAFT (Chest) ECHOCARDIOGRAM, TRANSESOPHAGEAL Location: [facility] Operating Room Surgeons: Ronnie Herrera MD Relevant Problems Cardio (+) CAD in king salmon artery Past Medical History: Past Medical History: [...] ERAS protocol. Cabg, no eras Sarah Renae, ASSOCIATE TRAINER - OYSTERMAN KIRBY Screening Labs: No results found for: [...] Heart Surgery Father Coronary artery disease Brother [employer] Work Phone: [phone]) 155-698609-19-2025 NotePatient: Ryan Asiffeliciano Procedure Information Date/Time: 01/27/25 0730 Procedures: CORONARY ARTERY BYPASS GRAFT (Chest) ECHOCARDIOGRAM, TRANSESOPHAGEAL Location: [place] [address] [facility] Operating Room Surgeons: Ronnie Herrera MD Relevant Problems Cardio (+) CAD in king salmon artery Past Medical History: Past Medical History: [...] ERAS protocol. Cabg, no eras Sarah Renae, ASSOCIATE TRAINER - [employer]YSTERMAN KIRBY Screening Labs: No results found for: [...] Father Heart Surgery Father Coronary artery disease [facility]09-11-2025 Telephone encounter Note* Telephone Encounter - Reina Lemus RN - 01/16/2025 1:46 PM EDT Patient had the TTE done at [facility] today, having carotid US done 01/23 at [facility]. Exam requests canceled at [facility], TE sent 01/16 LAR [id number] Miscellaneous Notes* Telephone Encounter - Reina Lemus RN - 01/16/2025 1:46 PM EDT Patient had the TTE done at [facility] today, having carotid US done 01/23 at [facility]. Exam requests canceled at [facility], TE sent 01/16 LAR documented in this [facility]09-09-2025 Telephone encounter Note* Telephone Encounter - HARMONY Paulino CNP - 01/14/2025 11:09 AM EDT Surg proc orders placed HARMONY Paulino CNP 01/14/25 [id number] Miscellaneous Notes* Telephone Encounter - HARMONY Paulino [...] mouth rinse [] Other: documented in this [facility]09-09-2025 NotePrep for Procedure Order Request: 01/14/25 Surgeon: Herrera Surgery/Procedure: CABG,ANA M Diagnosis: CAD Plan Admit: yes PAT Appointment: TBS Date if yes: Phone call Date of Surgery/Procedure: 01/27/25 7:30 am Medications: [] Hold as directed by CTS: [x] Per PAT protocol Medication needed prescribed: [] None [x] Nasal ointment and mouth rinse [] Other: [facility]09-09-2025 Telephone encounter Note* Telephone Encounter [...] Nasal ointment and mouth rinse [] Other: [facility] [id number] NoteOrders Placed This Encounter Procedures Transthoracic echocardiogram [...] Status: Future Expected Date: 01/14/2025 Expiration Date: 01/14/2027[facility]09-09-[facility] History of Present illness Narrative* Ronnie Herrera MD - 01/14/2025 8:00 AM EDT Images from the original note were not included. [facility] CARDIOVASCULAR & THORACIC SURGERY [address] COUNTS INCLUDE 234 BEDS AT THE [facility] [address] Dept: [phone] Dept Loc: [phone] Visit type: New Reason for Visit: Multivessel coronary artery disease-evaluate for CABG Assessment and plan 69-year-old patient with diabetes mellitus who has had exertional dyspnea underwent a stress test which was abnormal. A subsequent cardiac catheterization revealed multivessel coronary artery diseasewith a chronically occluded right coronary artery (with collateral reconstitution via xwmv-ma-kzcqbijhhgfolnmt), and 90% stenosis at the ostium of [...] Cardiology: Stone Williamson MD ?? Comorbidity & CARE HOME/CC Extraction Cardiac Multivessel CAD with chronic RCA occlusion ICD-10: I25.10 (atherosclerotic heart disease), I25.82 (chronic total occlusion) Evidence: cath showing RCA SOFTWARE DEVELOPER CONSULTANT, LAD 70% proximal stenosis, OM1 90% ostial. [...] Not comorbidities but impact med management. ?? CARE HOME/CC Capture Class Condition ICD-10 Evidence Missing Specificity CARE HOME None currently -- -- No acute renal [...] This note may have been dictated using [employer] Practice Edition 2.6 and/or Cuculus Voice Recognition Feature. The document was proofread, however unrecognized voice recognition transmission supervisor errors may be present. documented in this [facility]09-09-2025 [facility] CARDIOVASCULAR & THORACIC SURGERY [address] COUNTS INCLUDE 234 BEDS AT THE [facility] [address] Dept: [phone] Dept Loc: [phone] Visit type: New Reason for Visit: Multivessel coronary artery disease-evaluate for CABG Assessment and plan 69-year-old patient with diabetes mellitus who has had exertional dyspnea underwent a stress test which was abnormal. A subsequent cardiac catheterization revealed multivessel coronary artery disease with a chronically occluded right coronary artery (with collateral reconstitution via efge-qn-niocp collaterals), and 90% stenosis at the ostium [...] distress. Appearance: Normal appearanc (more content not included)...[facility]08-07-2025 Radiology Diagnostic study note [facility] Imaging Services [address] [place], [place] [address] Chest PA and Lateral MR#: [id number] Acct: [id number] Name: RYAN MACEDO Rep #: [id number] : 1955 M 69 From: Nahun Palafox MD PCP: Dr. Miriam Gomez DO Status: REG CLI Study:Chest PA and Lateral Date of Exam: 12/11/24 Exam# [id number] Ordering Dr: Radha Santiago PA ADDENDUM by Dr. Manuel Masters MD on 12/12/24 at 0406 . Reading Location: [place] [address] 12/12/24 0406 Date cc: Dr. Miriam Gomez [...] No acute process is seen. Reading Location: [facility] CC: Dr. Miriam Gomez DO; GWYN Olivares ~ Senior Safety Support Manager: Signed [facility]08-06-2025 Evaluation note* Diagnosis Onset Date Resolution Status Admit Date Abnormal stress test acute 2024 12:51pm LOVING (dyspnea on exertion) acute December 11, 2024 12:51pm Hyperlipidemia acute December 12:51pm Left carotid bruit acute December 11, 2024 12:51pm Hypertension chronic December 11, 2024 12:51pm [facility] Work Phone: evaluation noteNo assessment information available [facility] Work Phone: evaluation note* Diagnosis Onset Date Resolution Status Admit Date Abnormal stress test acute 2024 12:51pm LOVING (dyspnea on exertion) acute December 11, 2024 12:51pm Hyperlipidemia acute December 12:51pm Left carotid bruit acute December 11, 2024 12:51pm Hypertension chronic December 11, 2024 12:51pm [facility] Work Phone: evaluation note* Diagnosis Coronary artery disease due to calcified coronary lesion- Primary Type 2 diabetes mellitus with other circulatory complication, with long-term current use of insulin (HCC) 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) documented [facility]* Diagnosis CAD in king salmon artery- Primary Coronary artery disease due to calcified coronary lesion 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) documented in this encounter [facility] note* Diagnosis CAD in king salmon artery- Primary Coronary artery disease due to calcified coronary lesion CAD in king salmon artery documented in this encounter [facility] Discharge instructionsAmbulatory Orders* Cardiovascular/Thoracic Surgery Location: None Selected [facility] Work Phone: reason for referral (narrative)No reason for referral information availableSierra [facility] Work Phone: reason for visit Narrative* Auth/Cert (Routine) Specialty Diagnoses / Procedures Referred By Contac t Referred To Contact Diagnoses 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) Procedures MI CABG W/ARTERIAL GRAFT THREE ARTERIAL GRAFTS MI ECHO TRANSESOPHAG R-T 2D W/PRB IMG ACQUISJ I&R CORONARY ARTERY BYPASS GRAFT ECHOCARDIOGRAM, TRANSESOPHAGEAL Herrera, Ronnie Adams MD [address] [address] Phone: tel: fax: Referral ID Status Reason Start Date Expiration Date Visits Re quested Visits Authorized [id number]/14/2025 1 1 [facility] Narrative* Auth/Cert (Routine) Specialty Diagnoses / Procedures Referred By Luis t Referred To Contact Diagnoses 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 angina pectoris Procedures MI CABG W/ARTERIAL GRAFT THREE ARTERIAL GRAFTS MI ECHO TRANSESOPHAG R-T 2D W/PRB IMG ACQUISJ I&R CORONARY ARTERY BYPASS GRAFT ECHOCARDIOGRAM, TRANSESOPHAGEAL Herrera, Ronnie Adams MD [address] [place] [address] Phone: tel: fax: Referral ID Status Reason Start Date Expiration Date Visits Re quested Visits Authorized [id number]/14/2025 1 1 [facility] [employer] Advance Directives Advance Directive Response Recorded Date/ Time Living Will Yes November 15, 2020 6:14am Power of Mixer Operator Hot Metal Yes November 15 6:14am Advance Directive Response Recorded Date/ Time Advance Directives on File Yes Augus 2024 7:14am Living Will Yes December 25 7:14am Do you have a Healthcare Pow er of Mixer Operator Hot Metal? Yes December 25, 2024 7:14am Name of Medical Power of Mixer Operator Hot Metal Gela Hutbabar davis December 25, 2024 7:14am Advance Directives Yes December 25, 2024 7:14am Documents on File Type Date Recorded Patient Head Of Ict Expl anation Power of Mixer Operator Hot Metal 01/29/2025 9:50 AM Advance Directives and Livin [...] 9: 46am I25.110 Atherosclerotic heart disease of king salmon co January 16, 2025 12:46pm Chief Complaint Admit Date DYSPNEA December 05, 2024 9:52 am DYSPNEA December 05, 2024 4:35 pm POS. STRESS (JASON) December 11, 2024 12:51pm EORDERS December 11, 2024 2:0 4pm ABN STRESS December 25, 2024 6: 55am Referral Order December 25, 2024 9: 46am I25.110 Atherosclerotic heart disease of king salmon co January 16, 2025 12:46pm BRUIT January [...] December 25, 2024 End: December 25, 2024 Cooker Process Cheese Relationship Specialty Start Date End Date Miriam Gomez [address] [place] [phone] PCP - General Family Medicine 01/14/25 Cooker Process Cheese Relationship Specialty Start Date End Date Miriam Gomez [address] [place] [phone] PCP - General Family Medicine 01/14/25 Team Status: Inactive Member Role/Relationship Status Dates Dr. Miriam Gomez DO Primary Care Provider Active Start: January 16, 2025 End: January 16, 2025 Dr. Ronnie Herrera MD Attending Provider Active Start: January 16, 2025 End: January 16, 2025 Dr. Ronnie Herrera MD Referring Provider Active Start: January 16, 2025 End: January 16, 2025 Cooker Process Cheese Relationship Specialty Start Date End Date Miriam Gomez [address] [place] [phone] PCP - General Family Medicine 01/14/25 Cooker Process Cheese Relationship Specialty Start Date End Date Miriam Gomez [address] [place] [address] PCP - General Family Medicine 01/14/25 Nelly Santiago RN Dock Boss Manager 02/03/25 Team Status: Active Member Role/Relationship [...] cardiovascular function study Atherosclerotic heart disease of king salmon coronary artery without angina pectoris Procedures MI OFFICE/OUTPATIENT NEW HIGH MDM 60 MINUTES Teri, [place] [address] [place] [address] Phone: tel: fax:[phone] Ronnie Herrera MD [address] [place] [address] Phone: tel:[phone] fax:[phone] Referral ID Status Reason Start Date Expiration Date Visits Re quested Visits Authorized [id number] Closed 12/31/2024 12/31/2025 1 1 Reason Onset Date Comments Surgery Scheduling 01/14/2025 (unrecognized sect ion and content) No Status Records FoundNo Status Records Found INFORMATION SOURCE (unrecogn ized section and content) DATE CREATED AUTHOR 01/29/2025 [facility] DATE CREATED AUTHOR AUTHOR'S ORGANIZ ATION 02/07/2025 [facility] Scheduled Active and Recently Administ ered Medications (unrecognized section and content) Medication Order 02/02/2025 02/03/2025 02/04/2025 acetaminophen (Tylenol) tablet 1,000 mg 1,000 mg, Oral, Every 8 hours, First dose on Mon01/29/25 at 1630, Recovery & On Unit 0138 (Not Given - Provider: Rula Ruth RN [...] sedation for opioid reversal - MUST notify u.s. commissioner provider immediately after first dose, may give [...] BE BASED ON THE PRIMARY CLINICAL RECORDS. [employer] provides no warranty or guarantee of the accuracy or completeness of information in this document.
[2025-02-10 01:25] LABS: Magnesium 1.5 mg/dL (1.5-2.2)
[2025-02-10] MEDS: metroNIDAZOLE 500 MG/100 ML BAG 100 MG IV ×4 (01:53→21:54)
[2025-02-10 02:01] LABS: Reflex Lactate? Y
[2025-02-10 02:02] LABS: Hematocrit 28.5 % (40-54); Hemoglobin 9.2 g/dL (13.0-16.5)
[2025-02-10] MEDS: Vancomycin 125 MG/5 ML Susp PO.SYRINGE PO (02:04)
[2025-02-10] MEDS: Pantoprazole Sodium 40 MG in 0.9% Normal Saline (100mL MB+) 100 ML 330 MG IV ×3 (03:05→21:33)
[2025-02-10 06:08] LABS: Hematocrit 28.4 % (40-54); Hemoglobin 9.8 g/dL (13.0-16.5); Immature Granulocytes Count 0.150 X10^3/uL (0.0-0.0); Mean Corp Hgb Conc 34.5 g/dL (32-36); Mean Corpuscular Volume 91.0 fL (80-94); Mean Platelet Vol. 9.2 fl (6.2-12.0); NRBC Flagged by Analyzer 0 % (0-5); Platelet Count 422 K/mm3 (150-450); RBC Distribution Width CV 12.9 % (11.6-14.6); RBC Distribution Width SD 42.3 fl (35.1-43.9); Red Blood Count 3.12 M/mm3 (4.6-6.2); White Blood Count 11.0 K/mm3 (4.4-11.0)
[2025-02-10 06:55] LABS: AST(SGOT) 19 U/L (<=37); Alanine Aminotransfer ALT/SGPT 18 U/L (<=46); Albumin, Serum 3.6 g/dL (3.4-4.8); Alkaline Phosphatase 98 U/L (40-129); Anion Gap 14 (5-15); BUN 19 mg/dL (4-19); BUN/Creat Ratio 15.4 RATIO (10-20); Calcium,Total 9.4 mg/dL (7.6-11.0); Carbon Dioxide 21.9 mmol/L (21.0-32.0); Chloride 103 mmol/L (98-108); Estimated Creatinine Clearance 70.32 ml/min (50-250); Globulin 3.0 g/dL (2.2-4.2); Glucose 138 mg/dL (70-99); Potassium 3.9 mmol/L (3.3-5.1)
--- NOTE | 2025-02-10 08:01 | PCM.HOSP.N ---
Hospitalist Note Mr. Wick is a 69-year-old white male who presents emergency department at [facility] earlier this morning on 02/10/2025 with nausea vomiting and diarrhea. Patient was discharged 5 days ago from another facility after undergoing CABG x [address] Herrera. At the time of discharge his hemoglobin was 9. He stated that he began having pretty significant stool production on a stool regimen because he was having constipation however on the day of presentation it increased in frequency and he has gone several times more than his baseline. He also noted that he had some bright red/liquid in the stool without clots and no history of GI bleeding. At baseline he is on aspirin 81 mg daily but no other blood thinners. He did have some abdominal discomfort with cramping. Highly suspect he is on perioperative antibiotics. Hemoglobin is relatively stable despite him reporting blood in his stool. His [place] score was 19 which gave him a 50 to 62% probability of safe discharge and given the higher likelihood of complications related to safe discharge she was admitted. Stool studies initially came back positive for fecal lactoferrin as well as positive for toxigenic C. difficile. He was started on oral vancomycin and admitted to hospital. Vital signs on presentation showed temperature of 96.9, heart rate 73, respiratory rate of 18, blood pressure was 175/86 with a repeat of 135/58. Stool production has decreased since admission and his Hgb is relatively stable at 9.1. Will continue Metronidazole IV and PO Vanc but switch from pills to PO liquid. If stable in am, may be able to discharge. Repeat lab ordered for am. Continue to hold ASA.
[2025-02-10] MEDS: Potassium Chloride Oral Tablet 20 MEQ PO (09:04)
[2025-02-10 09:51] LABS: Hematocrit 28.4 % (40-54); Hemoglobin 9.1 g/dL (13.0-16.5)
[2025-02-10] MEDS: 0.9% Normal Saline (1000mL) 1,000 ML 100 ML IV (11:17)
--- NOTE | 2025-02-10 14:55 | CASEMGMT ---
Addendum entered by Bouchra Palumbo 02/10/25 15:25: Received response that pt is active with SN and PT. ADILENE order entered. Addendum entered by Bouchra Palumbo 02/10/25 15:02: Message sent to [facility] to confirm disciplines active and request to continue upon dc. Addendum entered by Bouchra Palumbo 02/10/25 15:00: Pt reports he has a BGM with sufficient supply of strips and lancets. Original Note: RN CM into pt room, pt sitting up in bed in no distress with pt at bedside. Pt agreeable to discussion with present. Pt states she is doing most IADLs at this time since bypass surgery but pt is typically indep. Pt denies using AD for ambulation. Pt is receiving SN and therapy through [facility]. Pt would like this to resume upon dc. Pt denies need for a list of other options. Pt is very upset regarding the broth from the cafeteria. Pt given broth from [facility] can on floor and was much more pleased. Pt denies further needs at this time.
--- NOTE | 2025-02-10 16:35 | CASEMGMT ---
ROBLES Met with patient to complete ROBLES form. ROBLES form and its content were verbally explained and patient's questions were answered to the best of my ability.? Patient voiced understanding and signed ROBLES form.? Patient provided a copy of signed ROBLES form and original placed in patient's chart.? Patient had no further questions. Krystin Coronel, Discharge Planning Asst
[2025-02-11] MEDS: Vancomycin 125 MG/5 ML Susp PO.SYRINGE PO ×3 (00:21→11:46)
[2025-02-11 00:26] VITALS: BP 143/74; PULSE 62; RESP 18; TEMP 37.2; O2SAT 98
[2025-02-11 05:33] VITALS: BMI 23.8
[2025-02-11 05:42] VITALS: BP 140/72; PULSE 62; RESP 16; TEMP 36.8; O2SAT 97
[2025-02-11] MEDS: metroNIDAZOLE 500 MG/100 ML BAG 100 MG IV (05:44)
[2025-02-11 06:38] LABS: Hematocrit 29.6 % (40-54); Hemoglobin 9.7 g/dL (13.0-16.5); Mean Corp Hgb Conc 32.8 g/dL (32-36); Mean Corpuscular Volume 93.4 fL (80-94); Mean Platelet Vol. 9.5 fl (6.2-12.0); Platelet Count 451 K/mm3 (150-450); RBC Distribution Width CV 13.0 % (11.6-14.6); RBC Distribution Width SD 43.8 fl (35.1-43.9); Red Blood Count 3.17 M/mm3 (4.6-6.2); White Blood Count 8.9 K/mm3 (4.4-11.0)
[2025-02-11 06:53] LABS: Anion Gap 14 (5-15); BUN 11 mg/dL (4-19); BUN/Creat Ratio 9.8 RATIO (10-20); Calcium,Total 9.5 mg/dL (7.6-11.0); Carbon Dioxide 21.7 mmol/L (21.0-32.0); Chloride 102 mmol/L (98-108); Estimated Creatinine Clearance 76.03 ml/min (50-250); Glucose 162 mg/dL (70-99); Potassium 3.7 mmol/L (3.3-5.1)
[2025-02-11 07:23] VITALS: O2SAT 95
[2025-02-11 09:01] VITALS: BP 142/66; PULSE 88; RESP 16; TEMP 36.7; O2SAT 99
[2025-02-11 09:04] VITALS: PULSE 88
[2025-02-11] MEDS: Pantoprazole Sodium 40 MG in 0.9% Normal Saline (100mL MB+) 100 ML 330 MG IV (09:04)
--- NOTE | 2025-02-11 10:40 | DS.PCM_ITS ---
Providers Date of Admission: 02/10/25 Date of Discharge: 02/11/25 Primary Care Physician: Dr. Yury Orozco DO Reason For Visit: CDIFF COLITIS W/ ASSOCIATED GI BLEED Diagnosis Discharge Diagnosis (1) C. difficile colitis: Status: Acute Code(s): A04.72 - Enterocolitis due to Clostridium difficile, not specified as recurrent Medications at Discharge Home Medications aspirin 81 mg tablet,delayed release (Adult Aspirin Regimen) 81 mg PO QDAY blood thinner 12/11/24 cholecalciferol (vitamin D3) 50 mcg (2,000 unit) capsule 50 mcg PO QDAY supplement 12/11/24 coenzyme Q10 100 mg capsule 100 mg PO QDAY supplement 12/11/24 ezetimibe 10 mg tablet (Zetia) 10 mg PO QDAY #30 tabs 12/11/24 famotidine 40 mg tablet 40 mg PO QDAY gerd 12/11/24 glimepiride 2 mg tablet 2 mg PO DAILY dm 12/11/24 metformin 500 mg tablet 500 mg PO TID dm 12/11/24 multivitamin 1 tab PO QAM supplement 12/11/24 semaglutide 1 mg/dose (4 mg/3 mL) subcutaneous pen injector (Ozempic) 1 mg subcut QWEEK Type 2 diabetic 12/11/24 amiodarone 200 mg tablet 400 mg PO DAILY heart 02/10/25 furosemide 40 mg tablet 40 mg PO DAILY water pill 02/10/25 methocarbamol 500 mg tablet 1,000 mg PO Q8H cramps 02/10/25 metoprolol tartrate 50 mg tablet 50 mg PO BID heart 02/10/25 oxycodone 5 mg tablet 5 mg PO Q6H PRN pain 02/10/25 potassium chloride 20 mEq tablet,extended release(part/cryst) 20 meq PO DAILY supplement 02/10/25 lidocaine 5 % topical patch 1 patch topical DAILY #15 ea 02/11/25 vancomycin 25 mg/mL oral solution (Firvanq) 125 mg (5 mL) PO Q6 #260 mL 02/11/25 Hospital Course Operations None Procedures - (CT abdomen and pelvis) Summary of Care Provided Minutes Spent on Discharge: 38 Hospital Course: Mr. Wick is a 69-year-old white male who presents emergency department at [facility] earlier this morning on 02/10/2025 with nausea vomiting and diarrhea. Patient was discharged 5 days ago from another facility after undergoing CABG x [address] Herrera. At the time of discharge his hemoglobin was 9. He stated that he began having pretty significant stool production on a stool regimen because he was having constipation however on the day of presentation it increased in frequency and he has gone several times more than his baseline. He also noted that he had some bright red/liquid in the stool without clots and no history of GI bleeding. At baseline he is on aspirin 81 mg daily but no other blood thinners. He did have some abdominal discomfort with cramping. Highly suspect he is on perioperative antibiotics. Hemoglobin is relatively stable despite him reporting blood in his stool. His Beltrami score was 19 which gave him a 50 to 62% probability of safe discharge and given the higher likelihood of complications related to safe discharge she was admitted. Stool studies initially came back positive for fecal lactoferrin as well as positive for toxigenic C. difficile. He was started on oral vancomycin and admitted to hospital. Vital signs on presentation showed temperature of 96.9, heart rate 73, respiratory rate of 18, blood pressure was 175/86 with a repeat of 135/58. Stool production has decreased since admission and his Hgb is relatively stable at 9.1. He was placed on IV metronidazole and p.o. vancomycin on admission. By the a.m. of 02/11/2025 he was feeling much better. His hemoglobin remained stable at the time of discharge was 9.7 with no ongoing blood noted in his stool. Suspect blood was mated to his C. difficile infection. Plan will be for total of 14 days of vancomycin orally. We did discuss using a separate bathroom, handwashing to eradicate forwards, and utilization of bleach to clean bathrooms with both he and his . They both voiced understanding. We did enforce that gels were not effective against C. difficile. Patient does have upcoming follow-up with his surgeon, Dr. Herrera. I have asked him to follow-up with his primary care physician in the next 2 weeks. Prescriptions for the vancomycin and a prescription for lidocaine patches were sent to local pharmacy as he is having some postoperative pain in his shoulders and the lidocaine was very helpful. He had used this previously as well. Patient was able to be discharged in stable condition on 02/11/2025. No medications were discontinued and only vancomycin orally for a total of 13 more days and as needed lidocaine patches were ordered at discharge. Discharge diagnoses: Nausea/vomiting-resolved Diarrhea-improving C. difficile colitis Bright red blood per rectum secondary to above Anemia-hemoglobin stable at 9.7 at discharge CAD status post CABG x 3 on 01/29/2025 DM-2 PAF CKD stage IIIa Essential hypertension Hyperlipidemia GERD Physical Exam Const alert, oriented x3, no apparent distress, average body habitus, no limitations and well nourished Constitutional Narrative: Older, white male, sitting up in bed, at bedside, watching television, appears comfortable, nontoxic General Appearance: cooperative, comfortable, well kempt and well developed Exam Limitations: no limitations Nutritional Appearance: other Other Details: Normal weight HEENT normocephalic, head/scalp atraumatic, hearing grossly normal bilaterally and moist oral mucous membranes HEENT Narrative: Mallampati 2, no thrush Eyes EOMs intact bilaterally Eyes Narrative: No scleral icterus Neck supple Neck Narrative: Trachea midline Resp normal respiratory effort, no retractions, no use of accessory muscles and clear to auscultation bilaterally Auscultation: Negative for crackles, rhonchi or wheezes Cardio regular rate, regular rhythm, S1 normal heart sound, S2 normal heart sound, no murmurs, no rub, no gallops and no clicks GI normal to inspection, nondistended, normoactive bowel sounds, soft to palpation and non-tender Extremity no clubbing, cyanosis or edema Extremity Narrative: 2+ pedal pulses Skin skin turgor normal and no jaundice Skin Narrative: Sternotomy incision is clean dry and intact and seems to be healing well with no signs of drainage, erythema or infection Neuro moves all extremities and no focal motor deficits Speech: speech normal Psych affect normal Psych Narrative: Very pleasant, eye contact is good and patient interacts appropriately Weight / BMI Weight Weight: 88.8 kg Body Mass Index (BMI) 23.8 ABG / Lab / Microbiology Data 02/11/25 05:53 02/11/25 05:53 Laboratory: Laboratory Results - last 24 hr 02/10/25 12:16: POC Glucose 134 H 02/10/25 16:45: POC Glucose 128 H 02/11/25 00:24: POC Glucose 134 H 02/11/25 05:48: POC Glucose 148 H 02/11/25 05:53: WBC 8.9, RBC 3.17 L, Hgb 9.7 L, Hct 29.6 L, MCV 93.4, MCH 30.6, MCHC 32.8, RDW Std Deviation 43.8, RDW Coeff of Susy 13.0, Plt Count 451 H, MPV 9.5, Sodium 138, Potassium 3.7, Chloride 102, Carbon Dioxide 21.7, Anion Gap 14, BUN 11, Creatinine 1.11, Estim Creat Clear Calc 76.03, Est GFR (MDRD) Non-Af 71, BUN/Creatinine Ratio 9.8 L, Glucose 162 H, Calcium 9.5 Microbiology: Microbiology 02/09/25 23:17 Stool Stool Lactoferrin - Final 02/09/25 23:17 Stool Enteric Bacteriology - Final 02/09/25 23:17 Stool C. difficile GDH Antigen & Toxins - Final 02/09/25 23:17 Stool Clostridioides difficile (PCR) - Final D/C Instructions Discharge Activity: Return to Normal Activity (With chest precautions per cardiothoracic surgery) DC O2, CPAP, BIPAP Needs Home O2 Discharge instructions: No DC home with Oxygen: No Meaningful Use Info Meaningful Use Meaningful Use Diagnoses (Choose all that apply): None applicable Discharge Plan Admission Admit Date/Time: 02/10/25 17:27 Primary Reason for Your Visit: Nausea/vomiting/diarrhea Attending Provider: Barbara Connolly Primary Care Provider: Yury Orozco Consulting Providers: Kadi James Instructions Additional Instructions / Restrictions: 1. Please take the antibiotic vancomycin in its entirety to eradicate C. difficile 2. Once you have C. difficile 1 time you are at increased risk in the future so be aware if you take antibiotics in the future and develop diarrhea such as you had prior to coming in 3. Okay to take lactobacillus at home if needed as directed on package 4. Handwashing is recommended. Gels will not work on C. difficile. Would recommend cleaning bathrooms with bleach and using a separate bathroom for the short-term Discharge Orders/Prescriptions Prescriptions: New vancomycin [Firvanq] 25 mg/mL Recon Soln 125 mg PO Q6 Qty: 260 0RF lidocaine 5 % adhesive patch,medicated 1 patch topical DAILY Qty: 15 0RF Rx Instructions: leave on most painful area for up to 12 hrs Continued famotidine 40 mg tablet 40 mg PO QDAY metformin 500 mg tablet 500 mg PO TID Patient Comments: TAKE 2 TABLETS BY MOUTH EVERY MORNING, 1 TABLET MIDDAY, AND 2 TABLETS AT NIGHT Ozempic 1 mg/dose (4 mg/3 mL) pen injector 1 mg subcut QWEEK Rx Instructions: Every Monday glimepiride 2 mg tablet 2 mg PO DAILY Patient Comments: TAKE 1 TABLET BY MOUTH EVERY DAY cholecalciferol (vitamin D3) 50 mcg (2,000 unit) capsule 50 mcg PO QDAY multivitamin Tablet 1 tab PO QAM coenzyme Q10 100 mg capsule 100 mg PO QDAY aspirin [Adult Aspirin Regimen] 81 mg tablet,delayed release (DR/EC) 81 mg PO QDAY ezetimibe [Zetia] 10 mg tablet 10 mg PO QDAY Qty: 30 11RF amiodarone 200 mg tablet 400 mg PO DAILY Rx Instructions: 400mg PO BID for 5 days then 400mg daily for 7 days then 200mg daily furosemide 40 mg tablet 40 mg PO DAILY methocarbamol 500 mg tablet 1,000 mg PO Q8H metoprolol tartrate 50 mg tablet 50 mg PO BID oxycodone 5 mg tablet 5 mg PO Q6H PRN (Reason: pain) potassium chloride 20 mEq tablet,ER particles/crystals 20 meq PO DAILY Referrals / Follow Up: Giancarlo Herrera MD [Non-Staff, Cardiovascular/Thoracic Surg] Referral Note: As scheduled Yury Orozco DO [Primary Care Provider, Family Practice] - Within 2 Weeks Disposition Disposition (needs filled in before D/C Order can be placed): Home, Self Care Charges/Coding Visit Charges Inpatient E&M: 14951 Disch Hosp >30min
--- NOTE | 2025-02-11 11:10 | CASEMGMT ---
Addendum entered by Bouchra Palumbo 02/11/25 12:06: Received returned call from [facility], they do not have the med nor do any [facility] pharmacies within 30 miles. Med does require PA. Original Note: TC to [facility] [place] to confirm cost of Vancomycin and if there is a PA needed, left message with request for returned call.
--- NOTE | 2025-02-11 11:26 | PHA.DC.MC.R ---
Pharmacy [facility] Counseling Pharmacy Service has performed discharge medication reconciliation and counseling for this patient. The patient's discharge medication list was reviewed for discrepancies and discrepancies were resolved. The patient was counseled on the following discharge medications and changes in medications for homegoing were reviewed. The Reason for Use, instructions for use, and potential side effects were reviewed for all new medications. The patient's questions regarding all of their medications were answered. 1. Vancomycin 125 mg PO Q6 x 13 days 2. Lidocaine 5% patch topically daily The patient was able to verbally demonstrate an understanding of their discharge medications. Medications at Discharge Home Medications aspirin 81 mg tablet,delayed release (Adult Aspirin Regimen) 81 mg PO QDAY blood thinner 12/11/24 cholecalciferol (vitamin D3) 50 mcg (2,000 unit) capsule 50 mcg PO QDAY supplement 12/11/24 coenzyme Q10 100 mg capsule 100 mg PO QDAY supplement 12/11/24 ezetimibe 10 mg tablet (Zetia) 10 mg PO QDAY #30 tabs 12/11/24 famotidine 40 mg tablet 40 mg PO QDAY gerd 12/11/24 glimepiride 2 mg tablet 2 mg PO DAILY dm 12/11/24 metformin 500 mg tablet 500 mg PO TID dm 12/11/24 multivitamin 1 tab PO QAM supplement 12/11/24 semaglutide 1 mg/dose (4 mg/3 mL) subcutaneous pen injector (Ozempic) 1 mg subcut QWEEK Type 2 diabetic 12/11/24 amiodarone 200 mg tablet 400 mg PO DAILY heart 02/10/25 furosemide 40 mg tablet 40 mg PO DAILY water pill 02/10/25 methocarbamol 500 mg tablet 1,000 mg PO Q8H cramps 02/10/25 metoprolol tartrate 50 mg tablet 50 mg PO BID heart 02/10/25 oxycodone 5 mg tablet 5 mg PO Q6H PRN pain 02/10/25 potassium chloride 20 mEq tablet,extended release(part/cryst) 20 meq PO DAILY supplement 02/10/25 lidocaine 5 % topical patch 1 patch topical DAILY #15 ea 02/11/25 vancomycin 25 mg/mL oral solution (Firvanq) 125 mg (5 mL) PO Q6 #260 mL 02/11/25
--- NOTE | 2025-02-11 11:44 | CASEMGMT ---
ROMAN BARRIENTOS on floor asked to check with [facility] retail pharmacy to see if vancomycin order is in stock. Pharmacy states they have 30 doses available and could fill the rest of the order tomorrow. ROMAN BARRIENTOS into pt room, pt agreeable to changing pharmacy to [facility]. ROMAN BARRIENTOS called [facility] pharmacy to have order transferred from [facility].
--- NOTE | 2025-02-11 12:59 | CASEMGMT ---
Lucas Number for Lidocaine patch is [id number], Firvanq is [id number]. PA requests sent with answer within 1-3 days. TC to [facility] Retail to check cost of the meds if pt bought them. Patches are $43.39 and Firvanq is $311.49. RN CM into pt room, pt and are aware of the PA and amount of time for approval. They are also aware of the cost of the meds. Pt states that he will just buy them outright. He requests meds be sent to the room. TC to pharmacy and they are aware to deliver to the room. Hospitalist updated. Pt denies further homegoing needs at this time.
--- NOTE | 2025-02-12 09:28 | CASEMGMT ---
Discharge Planning DC Summary sent to [facility]. Krystin Coronel, DC Planning Asst.
== END 2025-02-11 13:36 | disposition home or self-care (01) | DRG 372 ==
LOC: ED 22:33 → MS3 02-10 00:52
PROVIDERS: Admitting Provider Family Medicine; Emergency Provider Emergency Medicine; PCP Family Medicine; Visit Provider Internal Medicine
DX: A04.72 Enterocolitis due to Clostridium difficile, not specified as recurrent (principal); D62 Acute posthemorrhagic anemia; E87.20 Acidosis, unspecified; K92.1 Melena; E11.22 Type 2 diabetes mellitus with diabetic chronic kidney disease; N18.31 Chronic kidney disease, stage 3a; I12.9 Hypertensive chronic kidney disease with stage 1 through stage 4 chronic kidney disease, or unspecified chronic kidney disease; I48.0 Paroxysmal atrial fibrillation; E78.5 Hyperlipidemia, unspecified; I25.10 Atherosclerotic heart disease of native coronary artery without angina pectoris; K21.9 Gastro-esophageal reflux disease without esophagitis; M25.511 Pain in right shoulder; M25.512 Pain in left shoulder; G89.18 Other acute postprocedural pain; Z95.1 Presence of aortocoronary bypass graft; Z79.82 Long term (current) use of aspirin; Z79.84 Long term (current) use of oral hypoglycemic drugs; Z79.85 Long-term (current) use of injectable non-insulin antidiabetic drugs; Z79.899 Other long term (current) drug therapy
CPT/HCPCS: 36415; 74177; 80048; 80053; 81001; 82962; 83605; 83630; 83690; 83735; 84100; 85014; 85018; 85025; 85027; 85610; 85730; 87493; 87506; 99285; Q9967; A4216; J0744

== ENCOUNTER → 2025-03-04 | Outpatient (CLI) | payer MEDICARE, OTHER, SELFPAY ==
--- NOTE | 2025-03-04 09:59 | PCM.CR.HP2 ---
CR - History & Physical General Arrival date:: 03/04/25 Arrival time:: 09:59 Date of Referral:: 02/28/25 Date of CR Evaluation:: 03/04/25 Referring Physician: Dr. Williamson Primary Diagnosis: CABG History of Present Cardiac Event Onset Date Coronary Artery Bypass Graft:: Yes (onset 01/29/25) Vessel: FAIR-LAD, SVG-1st obtuse, SVG-right posterior descending Medications Ambulatory Orders ?Medication ?Instructions ?Recorded aspirin 81 mg tablet,delayed 81 mg PO QDAY blood thinner 12/11/24 release (Adult Aspirin Regimen) cholecalciferol (vitamin D3) 50 50 mcg PO QDAY supplement 12/11/24 mcg (2,000 unit) capsule coenzyme Q10 100 mg capsule 100 mg PO QDAY supplement 12/11/24 ezetimibe 10 mg tablet (Zetia) 10 mg PO QDAY #30 tabs 12/11/24 glimepiride 2 mg tablet 2 mg PO DAILY dm 12/11/24 metformin 500 mg tablet 500 mg PO TID dm 12/11/24 multivitamin 1 tab PO QAM supplement 12/11/24 semaglutide 1 mg/dose (4 mg/3 mL) 1 mg subcut QWEEK Type 2 diabetic 12/11/24 subcutaneous pen injector (Ozempic) amiodarone 200 mg tablet 200 mg PO DAILY heart 02/28/25 famotidine 40 mg tablet 40 mg PO QDAY PRN gerd 02/28/25 lidocaine 5 % topical patch 1 patch topical DAILY PRN 02/28/25 losartan 50 mg tablet 50 mg PO QDAY #90 tabs 02/28/25 methocarbamol 500 mg tablet 1,000 mg PO Q8H PRN cramps 02/28/25 metoprolol tartrate 50 mg tablet 50 mg PO BID heart #180 tabs 02/28/25 Allergies Allergies pravastatin Allergy (Verified 02/28/25 13:13) fatigue enalapril Adverse Reaction (Intermediate, Verified 02/28/25 13:13) cough rosuvastatin (From Crestor) Adverse Reaction (Intermediate, Verified 02/28/25 13:13) fatigue Sleep Disorder Evaluation Hx of Sleep Apnea: No Do you snore loudly (louder than talking or can be heard through closed doors)?: No Do you often feel tired/ fatigued/ sleepy during daytime?: No Has anyone observed you stop breathing during sleep?: No History of Hypertension (for STOP score): Yes STOP Results: Negative Advanced Directives Advanced Directives Do you have a Healthcare Power of Behavioral Analyst?: Yes Living Will: Yes Advance Directives Information Provided: No Advance Directives on File: Yes DNR Order?:: No Past Medical History Covid-19 Screening Physicial Symptoms Other Clinical Concerns Exposure Risk Pertinent Comorbidities 65 years or older:: Yes Has a serious heart condition:: Yes Diabetic:: Yes Past Medical Illness Past Medical History (Updated 02/28/25 @ 13:34 by Radha PASCAL, PA) CAD (coronary artery disease) I25.10 Postoperative atrial fibrillation I97.89, I48.91 Hyperlipidemia E78.5 Osteoarthritis M19.90 Gout M10.9 GERD (gastroesophageal reflux disease) K21.9 Lumbar stenosis M48.061 History of kidney stones Z87.442 Diabetes E11.9 Hypertension I10 Past Surgical History Past Surgical History (Updated 02/28/25 @ 14:16 by Radha PASCAL, PA) S/P CABG x 3 Z95.1 Hx of CABG Z95.1 S/P CABG x 3 Z95.1 History of back surgery Z98.890 H/O right knee surgery Z98.890 S/P right rotator cuff repair Z98.890 S/P left rotator cuff repair Z98.890 Family History Summary Family History Father CAD (coronary artery disease) Cancer melanoma Mother Diabetes Brother CAD (coronary artery disease) Social History Smoking History Smoking Status: Never smoker Alcohol Use Alcohol Usage: No Occupation Occupation (List type of work in comments):: Retired Social Environment Status Marital Status: Current Living Arrangements Living Environment:: Spouse Children How many children do you have?: 2 Do any of your children live nearby?: Yes Safety Do you feel safe in your surroundings?: Yes Assistance Do you need any assistance at home?: no Review of Systems Review of Systems Hints Review of Present Symptoms: Reports Shortness of Breath with Exertion, Operative Discomfort, Fatigue, Heart Arrhythmia/Irregularities, Appetite - Normal, Appetite - Special Diet and Sleep - Normal; Denies Shortness of Breath at Rest, PVD, Angina, Wound Healing, Dizziness/Lightheadedness or Sexual Changes Pain Is Patient Pain Free?: Yes Risk Factor Assessment Chief Complaint Chief Complaint: CABG Vital Signs Pulse Ox: 97 Blood Pressure: 150/76 Pulse Pulse Rate: 69 Pulse Rhythm: Regular Hypertension Blood Pressure Sitting - Right Arm: 150/76 Diabetes Diabetic History: Type II Nutrition Referral for Diabetes: No Obesity Height: 6 ft 4 in Weight:: 193 lb Weight in Pounds: 193.0 lbs Body Mass Index (BMI): 23.5 Nutritional Referral for Obesity: No Physical Inactivity Physical Inactivity: Reg Exercise 30 min/day Risk Stratification Risk Guidelines: Lowest Risk: Risk Factor for Smoking, Moderate Risk: Risk Factor for Obesity, Risk Factor for Sedentary Lifestyle and Risk Factor for Depression and Highest Risk: Risk Factor for Dyslipidemia, Risk Factor for Diabetes and Risk Factor for Hypertension For Smoking Smoking Risk Guidelines For Dyslipidemia Dyslipidemia Risk Guidelines For Diabetes Mellitus Diabetes Risk Guidelines For Obesity/Overweight Obesity/Overweight Risk Guidelines For Hypertension Hypertension Risk Guidelines For Sedentary Lifestyle Sedentary Lifestyle Risk Guidelines For Depression Depression Risk Guidelines Family History Family History Father CAD (coronary artery disease) Cancer melanoma Mother Diabetes Brother CAD (coronary artery disease) Motivation Motivation to Participate On a scale of 1 to 10, how prepared are you to commit to attending program?: 9 What do you see as barriers to successfully being able to complete the program?: nothing What do you see as the benefits of succesfully completing the program? In other words, what do you hope to get out of participating in the program?: more energy Are there issues you are dealing with that will interfere with completing the program?: no Do you have a spouse or signficant other, family or friends who will help support you to complete the program?: yes
--- NOTE | 2025-03-04 10:03 | PCM.CR.ITP ---
Diagnosis General Information Admitting Diagnosis: CABG Personal Learning Style:: Audio/Visual Barriers to Learning: No Barriers Stage of change r/t lifestyle modifications:: Contemplation Gave educational material for:: Treating Heart Disease, How The Heart Works, What it means to have Heart Disease, How Coronary Artery Disease is Diagnosed, Heart Procedures, What Heart Medications Do, Risk Factors & Modifications, Living an Active Life, Nutrition, Emotions & Heart Disease, Stress Management & Relaxation and Sleep Disorders & Heart Disease Education/Goals Cardiac Rehabilitation Goals Personal Goals: Initial Assessment: Improve energy level and Improve muscle strength and endurance Scale for measuring improvement of personal goals Diagnosis & Disease Process Outcomes/Goals: Pt IDs own risk factors & lifestyle modifications by Session 10, Verbalizes symptoms of angina & response by session 3., Pt independently manages and Other Additional Outcomes/Goals: Plan/Interventions: Assist Pt to ID & engage in lifestyle modification to reduce CVD risk, Instruct on individual risk factors, Review symptoms of angina & emergency actions, Review secondary diagnosis & identify educational needs. and Other see comment 30 day Reassessments:: Not Met 30 day Reassessments:: Not Met 30 day Reassessments:: Not Met 30 day Reassessments:: Not Met Final Reassessments:: Not Met Safety Referral to Physical Therapy: No Referral to [facility] Case Management: No Fall Risk Assessed:: Yes Assistive Devices:: None Exercise - Initial Assessment Visit Date of Eval: 03/04/25 (initial eval ) Mets: Pre-: >3 METS for 30 minutes by discharge, >5 METS for 30 minutes by discharge, >7 METS for 30 minutes by discharge and Unable to meet goal due to: (see comment below) Physician Prescribed Exercise Modalities: Treadmill, Schwinn Airdyne AD-7, SciFit Stepper, [email or web address] Pro-II Ergometer and [email or web address] Lateral Roberts Frequency: 3x/week for 12 weeks [36 sessions] Intensity: 60-80% of age predicted maximum heart rate reserve Duration: 30 - 45 minutes Current METSs:: 3 Target Heart Rate:: 90-113 Resting Blood Pressure: 150/76 EKG Type: post op Afib Outcomes & Goals Goals:: Verbalizes understanding of THR, RPE & goal METS by session 6, Documents in home exercise log/reports 30 min aerobic 5 day/wk by DC, Demonstrates accurate pulse taking by DC and Other additional outcome/goals: see below Intervention & Plan Exercise Program Goals: Instruct on personal THR & RPE, Instruct on MET level & personal MET goal, Show patient to take own pulse /validate performance until accurate, Instruct on home exercise and Other additional plan/int Physical Activity Home Exercise Physical Activity - Home Exercise: Safe Exercise, Warm-up, Self-monitoring, Cool-Down, Home Exercise > 30 min Daily and Sitting Time <3 hours/daily Outcomes & Goals Outcomes/Goals: Demonstrates correct Warm-up/exercise Cool-Down (S3) if = 2.5 METs, Verbalizes symptoms of exercise intolerance by Session 3 (S3), Demonstrate safe equipment use (S3) & follows exercise prescrition (6) and Other: See below Intervention & Plan Plan/Intervention: Instruct warm-up & cool-down if exercising at > 2 METs, Instruct on symptoms of exercise intolerance & actions to take, Instruct & monitor on saf, Assess intial functional capacity & safety risk and Other See below Nutrition - Initial Assessment Program Goals Nutrition Program Goals Patient has diagnosis of Hyperlipidemia (ICD E78)?: Yes Visit Date of Eval: 03/04/25 (initial eval ) Cholesterol/Lipids (Other Core Measures) Determine presence & major risk factors that modify LDL goal: Cigarette smoking, Hypertension or hypertensive medication, Low HDL cholesterol <40 mg/dL*, Family history of premature CHD in Male < 55 years: female <65 yearsFa and Age men > 45 years; women >/= 55 years Outcomes/Goals: Pt IDs own risk factors & lifestyle modifications by Session 10, Verbalizes symptoms of angina & response by session 3., Pt independently manages and Other Additional Outcomes/Goals: Intervention/Plan: Advocate for lipid panel cholesterol medication if applicable, Instruct on personal lipid levels & lipid goals/NCEP guidelines, Instruct on cholesterol and Other additional plan/int Referral to dietitian:: No (Pt declines referral. Nutrition survey score of 3.) Diabetes (Other Core Measures) Diabetes Type: Diagnosis Type II ICD-10 E11 Insulin dependent injection/pump?: No Non-Insulin Dependent?: Yes Do you monitor your blood sugar at home?: Yes Referral to Diabetic Clinic:: No Weight Mgt (Other Care) Height: 6 ft 4 in Weight:: 193 lb BMI: 23.5 Diagnosis Overweight/Obesity BMI> 30% ICD-10 E66: No Diagnosis High BMI/Morbid Obesity BMI> 35% ICD-10 Z68: No Outcomes/Goals: Pt sets, maintains & shows weight loss goal & trend during rehab and Other additional outcomes/goals Intervention/Plan: Instruct on ideal BMI & set weight loss goal w/patient, Assist pt to ID & incorporate diet changes for weight loss by S9, Refer to Structured Weight Loss program as appropriate, Encourage goal of using 250-300dcal per session for weight loss and Other additional plan/interventions Healthy Eating Habits Will attend diet classes:: Yes Outcomes/Goals:: Consume diet rich in vegs,fruits,whole grain/high fiber,fish,lean meat, Limit sat/trans fats,cholesterol & added salts & sugars and Other additional outcome/goals: Intervention/Plan:: Assess current eating habits and Other Additional plan/interventions Education Gave educational materials for:: Signs & symptoms of hypoglycemia, Signs & symptoms of hyperglycemia, Relate diabetes to coronary artery disease and Healthy eating Core - Initial Assessment Visit Date of Eval: 03/04/25 (initial eval ) Medication Compliance Preventative Medication(s):: Aspirin, Statin/lipid, Beta aleksander and ARB (Angiotensi Rcap) H/O mental health issues: depression, anxiety, or addiction?: No Doesn?t believe in the benefits of treatment?: No Believes medications are unnecessary or harmful?: No Has a concern about medication side effects?: No Expresses concern over the cost of medications?: No Outcomes/Goals: Verbalizes medications,desired effect & common side effects @ DC, Pt self-reports following medication regimen, Keeps card in wallet w/medications listed by DC and Other additional outcome/goals: Interventions/plans: Instruct on medication effects & side effects, Review medication list w/patient every two weeks, Instruct importance of taking meds as ordered & assist problem solving and Other additional Tobacco Use Tobacco Use: Non-smoker Hypertension Hypertension Diagnosis:: Hypertension ICD-10 I10 Resting Blood Pressure:: 150/76 [place] [employer] Hypertension Guidelines Outcomes/Goals: Able to verbalize/achieve optimal blood pressure <130/80, Incorporates diet changes & exercise for blood pressure control by DC and Other additional outcomes/goals Interventions/plan: Instruct on optimal blood pressure, hypertension & medications, Instruct on effects of sodium, alcohol, stress, exercise &hypertension and Other additional plan/interventions Tobacco Cessation Referral Smoking Cessation Referral:: No Individual Education/Counseling:: No Education Schedule Given:: Yes Psychosocial - Initial Assess VIsit Date of Eval: 03/04/25 (initial eval ) History of previous Mental disease:: No Psychosocial Test Tool Used:: [employer] Power QOL Cardiac and PHQ-9 Questionnaire phq-9 Severity See PHQ-9 Score: 2 Referral to Behavioral Health PS - Interventions: Yes: Attend Stress Management Classes Outcomes/Goals: See list Psychosocial Outcomes/Goals:: ID's personal stressors & 2 strategies to manage stress by discharge and Other Additional outcome/goals: Intervention/Plan: See List Interventions/Plan:: Assess stressors,coping strategies & signs of derpression on admission, Instruct/assist pt to develop coping & personal stress Mgt strategies, Refer to Behavioral Health if appropriate, Refer to Physician if appropriate, Instruct patient to recognize signs & symptoms of depression, Instruct patient to recog and Other additional plan/intervention Patient Health Questionnaire PHQ-9 Screening Initial Assessment: 1. Little interest or pleasure in doing things: Not at all 2. Feeling down, depressed, or hopeless: Not at all 3. Trouble falling or staying asleep, or sleeping too much: Not at all 4. Feeling tired or having little energy: More than half the days 5. Poor appetite or overeating: Not at all 6. Feeling bad about yourself -- or that you are a failure or have let yourself or your family down: Not at all 7. Trouble concentrating on things, such as reading the newspaper or watching television: Not at all 8. Moving or speaking so slowly that other people could have noticed. Or the opposite - being so fidgety or restless that you have been moving around a lot more than usual: Not at all 9. Thoughts that you would be better off , or of hurting yourself in some way: Not at all How difficult have these problems made it for you to do your work, take care of things at home, or get along with other people?: Not difficult at all Total Score: 2 Nutrition Survey Nutrition Survey Initial: Have you lost >10 lbs over the past 2 months without trying?: No Are you following a special diet at home for diabetes, low fat, or low salt?: Yes Are you interested in meeting with a dietitian for help understanding your diet?: No Do you eat less than 3 meals a day?: No Do you eat fatty meats (lewis, sausage, ribs, etc), fried foods, desserts, large amounts of salad dressings, margarine, butter, or cheese most days?: Yes Do you have food allergies? [Enter types in comment field]: No Do you eat in restaurants more than 3 times a week?: No Do you season food with salt, seasoning salt, or garlic salt?: Yes Do you used canned, boxed, frozen meals, or soups, seasoning packets?: No Total Score:: 3 Exercise - 30-day Assessment Physician Prescribed Exercise Modalities: Treadmill, Schwinn Airdyne AD-7, SciFit Stepper, SciFit Pro-II Ergometer and SciFit Lateral Flash Ranging Crewmember Exercise - 60-day Assessment Physician Prescribed Exercise Modalities: Treadmill, Schwinn Airdyne AD-7, SciFit Stepper, SciFit Pro-II Ergometer and SciFit Lateral Roberts Exercise - 90-day Assessment Physician Prescribed Exercise Modalities: Treadmill, Schwinn Airdyne AD-7, SciFit Stepper, SciFit Pro-II Ergometer and SciFit Lateral Flash Ranging Crewmember Exercise - Final/Discharge Physician Prescribed Exercise Modalities: Treadmill, Schwinn Airdyne AD-7, SciFit Stepper, SciFit Pro-II Ergometer and SciFit Lateral Flash Ranging Crewmember Frequency: 3x/week for 12 weeks [36 sessions] Intensity: 60-80% of age predicted maximum heart rate reserve Current METSs:: 3 Target Heart Rate:: 90-113 Nutrition - 30-Day Assessment Weight Mgt (Other Care) Height: 6 ft 4 in Weight:: 193 lb BMI: 23.5 Nutrition - 60-Day Assessment Weight Mgt (Other Care) Height: 6 ft 4 in Weight:: 193 lb BMI: 23.5 Core - Final Assessment Hypertension Resting Blood Pressure:: 150/76 [place] [employer] Hypertension Guidelines Core - 60-Day Assessment Hypertension Resting Blood Pressure:: 150/76 [place] [employer] Hypertension Guidelines Psychosocial - 30-Day Assess Referral to Behavioral Health PS - Interventions: Yes: Attend Stress Management Classes Psychosocial - 60-Day Assess Referral to Behavioral Health PS - Interventions: Yes: Attend Stress Management Classes Psychosocial - 90-Day Assess Referral to Behavioral Health PS - Interventions: Yes: Attend Stress Management Classes Psychosocial - Final Assessmen Psychosocial Test phq-9 Severity See PHQ-9 Score: 2 Referral to Behavioral Health PS - Interventions: Yes: Attend Stress Management Classes Nutrition - 90-Day Assessment Weight Mgt (Other Care) Height: 6 ft 4 in Weight:: 193 lb BMI: 23.5 Nutrition - Final Assessment Program Goals Patient has diagnosis of Hyperlipidemia (ICD E78)?: Yes Weight Mgt (Other Care) Height: 6 ft 4 in Weight:: 193 lb BMI: 23.5
[2025-03-04 10:20] VITALS: BP 150/76; PULSE 69; O2SAT 97; BMI 23.5
[2025-03-04 10:38] VITALS: BP 150/76; BMI 23.5
[2025-03-04 10:43] VITALS: BP 150/76
== END | disposition home or self-care (01) ==
PROVIDERS: PCP Family Medicine; Referring Provider Internal Medicine Cardiovascular Disease; Visit Provider Internal Medicine Cardiovascular Disease
DX: Z95.1 Presence of aortocoronary bypass graft (principal)

== ENCOUNTER 2025-04-02 10:15 | Outpatient (RCR) | payer MEDICARE, OTHER, SELFPAY ==
[2025-03-04 10:38] VITALS: BMI 23.5
--- NOTE | 2025-04-01 09:35 | PCM.CR.ITP ---
Exercise - Initial Assessment Visit Session #:: 10 Physician Prescribed Exercise Modalities: Schwinn Airdyne AD-7, SciFit Stepper and SciFit Lateral [place] Nutrition - Initial Assessment Weight Mgt (Other Care) Height: 6 ft 4 in Weight:: 196 lb BMI: 23.8 Psychosocial - Initial Assess Referral to Behavioral Health PS - Interventions: Yes: Attend Stress Management Classes and No: Referral to Behavioral Health if PHQ-9 score >9:, No: Referral to [facility] and No: Referral to Physician if PHQ-9 if score is 5-9: Exercise - 30-day Assessment Visit Date of Eval: 04/01/25 Session #:: 10 Physician Prescribed Exercise Modalities: Schwinn Airdyne AD-7, SciFit Stepper and SciFit Lateral Reeler Operator Frequency: 3x/week for 12 weeks [36 sessions] Intensity: 60-80% of age predicted maximum heart rate reserve Duration: 30 - 45 minutes Current METSs:: 3 Target Heart Rate:: 90-113 Current RPE:: 12-13 Maximum Excercise HR:: 88 Resting Blood Pressure: 130/80 Maximum Exercise Blood Pressure: 136/78 EKG Type: NSR w/ occas PAC/PVCs Outcomes & Goals Goals:: Verbalizes understanding of THR, RPE & goal METS by session 6, Documents in home exercise log/reports 30 min aerobic 5 day/wk by DC, Demonstrates accurate pulse taking by DC and Other additional outcome/goals: see below Intervention & Plan Exercise Program Goals: Instruct on personal THR & RPE, Instruct on MET level & personal MET goal, Show patient to take own pulse /validate performance until accurate, Instruct on home exercise and Other additional plan/int 30-day Reassessments 30 day Reassessments:: Progressing Reassessment Notes & Comments:: Pt is progressing in his exercise intensity while demonstrating proper warm up and cool down. Physical Activity Home Exercise Physical Activity - Home Exercise: Safe Exercise, Warm-up, Self-monitoring, Cool-Down, Home Exercise > 30 min Daily and Sitting Time <3 hours/daily Outcomes & Goals Outcomes/Goals: Demonstrates correct Warm-up/exercise Cool-Down (S3) if = 2.5 METs, Verbalizes symptoms of exercise intolerance by Session 3 (S3), Demonstrate safe equipment use (S3) & follows exercise prescrition (6) and Other: See below Intervention & Plan Plan/Intervention: Instruct warm-up & cool-down if exercising at > 2 METs, Instruct on symptoms of exercise intolerance & actions to take, Instruct & monitor on saf, Assess intial functional capacity & safety risk and Other See below 30-day Reassessments 30 day Reassessments:: Progressing Reassessment Notes & Comments:: Target heart rate explained in class. Pt demonstrates interest and understanding of need of warm up and cool down with exercise. Exercise - 60-day Assessment Physician Prescribed Exercise Modalities: Schwinn Airdyne AD-7, SciFit Stepper and SciFit Lateral Reeler Operator Exercise - 90-day Assessment Physician Prescribed Exercise Modalities: Schwinn Airdyne AD-7, SciFit Stepper and SciFit Lateral [place] Exercise - Final/Discharge Physician Prescribed Exercise Modalities: Schwinn Airdyne AD-7, SciFit Stepper and SciFit Lateral [place] Nutrition - 30-Day Assessment Program Goals Nutrition Program Goals Patient has diagnosis of Hyperlipidemia (ICD E78)?: Yes Visit Date of Eval: 04/01/25 Session #:: 10 (nutrition score of 3) Cholesterol/Lipids (Other Core Measures) Determine presence & major risk factors that modify LDL goal: Cigarette smoking, Hypertension or hypertensive medication, Low HDL cholesterol <40 mg/dL*, Family history of premature CHD in Male < 55 years: female <65 yearsFa and Age men > 45 years; women >/= 55 years Outcomes/Goals: Pt IDs own risk factors & lifestyle modifications by Session 10, Verbalizes symptoms of angina & response by session 3., Pt independently manages and Other Additional Outcomes/Goals: Intervention/Plan: Advocate for lipid panel cholesterol medication if applicable, Instruct on personal lipid levels & lipid goals/NCEP guidelines, Instruct on cholesterol and Other additional plan/int 30-day Reassessments:: Progressing Diabetes (Other Core Measures) Diabetes Type: Diagnosis Type II ICD-10 E11 Insulin dependent injection/pump?: No Non-Insulin Dependent?: No Do you monitor your blood sugar at home?: Yes Outcomes/Goals:: Able to state symptoms of, Able to state, Able to state and Other additional Intervention/Plan:: Instruct on, Refer to, Instruct on and Other 30-day Reassessments:: Progressing Reassessment Notes & Comments:: Pt is on metformin and self monitors blood sugars at home. Weight Mgt (Other Care) Height: 6 ft 4 in Weight:: 196 lb BMI: 23.8 Diagnosis Overweight/Obesity BMI> 30% ICD-10 E66: No Diagnosis High BMI/Morbid Obesity BMI> 35% ICD-10 Z68: No Outcomes/Goals: Pt sets, maintains & shows weight loss goal & trend during rehab and Other additional outcomes/goals Intervention/Plan: Instruct on ideal BMI & set weight loss goal w/patient, Assist pt to ID & incorporate diet changes for weight loss by S9, Refer to Structured Weight Loss program as appropriate, Encourage goal of using 250-300dcal per session for weight loss and Other additional plan/interventions 30 day Reassessments:: Progressing Reassessment Notes & Comments:: Pt maintains a healthy weight. Will continue to monitor weekly Healthy Eating Habits Will attend diet classes:: Yes Outcomes/Goals:: Consume diet rich in vegs,fruits,whole grain/high fiber,fish,lean meat, Limit sat/trans fats,cholesterol & added salts & sugars and Other additional outcome/goals: Intervention/Plan:: Assess current eating habits and Other Additional plan/interventions 30-day Reassessments:: Progressing Reassessment Notes & Comments:: Pt attended nutrition classes with [facility] director. Tools given to maintain a heart healthy diet. Education Gave educational materials for:: Signs & symptoms of hypoglycemia, Signs & symptoms of hyperglycemia, Relate diabetes to coronary artery disease and Healthy eating Nutrition - 60-Day Assessment Weight Mgt (Other Care) Height: 6 ft 4 in Weight:: 196 lb BMI: 23.8 Core - 30-Day Assessment Visit Date of Eval: 04/01/25 Session #:: 10 Medication Compliance Preventative Medication(s):: Aspirin, Statin/lipid, Beta aleksander and ARB (Angiotensi Rcap) H/O mental health issues: depression, anxiety, or addiction?: No Doesn’t believe in the benefits of treatment?: No Believes medications are unnecessary or harmful?: No Has a concern about medication side effects?: No Expresses concern over the cost of medications?: No Outcomes/Goals: Verbalizes medications,desired effect & common side effects @ DC, Pt self-reports following medication regimen, Keeps card in wallet w/medications listed by DC and Other additional outcome/goals: Interventions/plans: Instruct on medication effects & side effects, Review medication list w/patient every two weeks, Instruct importance of taking meds as ordered & assist problem solving and Other additional 30-day Reassessments:: Progressing Reassessment Notes & Comments:: Pt is taking meds as prescribed. Pt to attend cardiac med class. Tobacco Use Tobacco Use: Non-smoker Do you use smokeless tobacco?: No Hypertension Hypertension Diagnosis:: Hypertension ICD-10 I10 Resting Blood Pressure:: 130/80 [place] [employer] Hypertension Guidelines Peak Exercise Blood Pressure:: 136/78 Outcomes/Goals: Able to verbalize/achieve optimal blood pressure <130/80, Incorporates diet changes & exercise for blood pressure control by DC and Other additional outcomes/goals Interventions/plan: Instruct on optimal blood pressure, hypertension & medications, Instruct on effects of sodium, alcohol, stress, exercise &hypertension and Other additional plan/interventions 30 day Reassessments:: Progressing Reassessment Notes & Comments:: Pt taking cardiac meds as prescribed, Pt instructed on optimal BP and effects of sodium on BP. Tobacco Cessation Referral Smoking Cessation Referral:: No Individual Education/Counseling:: No Education Schedule Given:: Yes Psychosocial - 30-Day Assess VIsit Date of Eval: 04/01/25 Session #:: 10 History of previous Mental disease:: No Psychosocial Test Tool Used:: [employer] QOL Cardiac and PHQ-9 Questionnaire phq-9 Severity See PHQ-9 Score: 2 Referral to Behavioral Health PS - Interventions: Yes: Attend Stress Management Classes and No: Referral to Behavioral Health if PHQ-9 score >9:, No: Referral to [facility] and No: Referral to Physician if PHQ-9 if score is 5-9: Outcomes/Goals: See list Psychosocial Outcomes/Goals:: ID's personal stressors & 2 strategies to manage stress by discharge and Other Additional outcome/goals: Intervention/Plan: See List Interventions/Plan:: Assess stressors,coping strategies & signs of derpression on admission, Instruct/assist pt to develop coping & personal stress Mgt strategies, Refer to Behavioral Health if appropriate, Refer to Physician if appropriate, Instruct patient to recognize signs & symptoms of depression, Instruct patient to recog and Other additional plan/intervention 30-day Reassessments: 30 day Reassessments:: Progressing Reassessment Notes & Comments:: Pt denies any psychosocial issues at this time. Pt to attend stress management class. Will assess every 30days. Psychosocial - 60-Day Assess Referral to Behavioral Health PS - Interventions: Yes: Attend Stress Management Classes and No: Referral to Behavioral Health if PHQ-9 score >9:, No: Referral to [facility] and No: Referral to Physician if PHQ-9 if score is 5-9: Outcomes/Goals: See list Psychosocial Outcomes/Goals:: ID's personal stressors & 2 strategies to manage stress by discharge and Other Additional outcome/goals: Psychosocial - 90-Day Assess Referral to Behavioral Health PS - Interventions: Yes: Attend Stress Management Classes and No: Referral to Behavioral Health if PHQ-9 score >9:, No: Referral to [facility] and No: Referral to Physician if PHQ-9 if score is 5-9: Psychosocial - Final Assessmen Referral to Behavioral Health PS - Interventions: Yes: Attend Stress Management Classes and No: Referral to Behavioral Health if PHQ-9 score >9:, No: Referral to [facility] and No: Referral to Physician if PHQ-9 if score is 5-9: Nutrition - 90-Day Assessment Weight Mgt (Other Care) Height: 6 ft 4 in Weight:: 196 lb BMI: 23.8 Nutrition - Final Assessment Weight Mgt (Other Care) Height: 6 ft 4 in Weight:: 196 lb BMI: 23.8
[2025-04-01 09:47] VITALS: BP 130/80
[2025-04-01 09:57] VITALS: BMI 23.8
[2025-04-01 10:07] VITALS: BP 130/80
== END 2025-04-06 23:59 ==
LOC: CR 10:15
PROVIDERS: PCP Family Medicine; Referring Provider Internal Medicine Cardiovascular Disease; Visit Provider Internal Medicine Cardiovascular Disease
DX: Z95.1 Presence of aortocoronary bypass graft (principal)
CPT/HCPCS: 93798

== ENCOUNTER 2025-05-07 10:15 | Outpatient (RCR) | payer MEDICARE, OTHER, SELFPAY ==
[2025-04-01 09:57] VITALS: BMI 23.8
--- NOTE | 2025-04-29 08:23 | PCM.CR.ITP ---
Exercise - Initial Assessment Physician Prescribed Exercise Modalities: Schwinn Airdyne AD-7, SciFit Stepper and SciFit Lateral Irrigator Gravity Flow Nutrition - Initial Assessment Weight Mgt (Other Care) Height: 6 ft 4 in Weight:: 196 lb 8 oz BMI: 23.9 Core - Initial Assessment Hypertension Resting Blood Pressure:: 140/60 [place] [employer] Hypertension Guidelines Psychosocial - Initial Assess Referral to Behavioral Health PS - Interventions: Yes: Attend Stress Management Classes Exercise - 30-day Assessment Physician Prescribed Exercise Modalities: Schwinn Airdyne AD-7, SciFit Stepper and SciFit Lateral Vandiver Exercise - 60-day Assessment Visit Date of Eval: 04/29/25 Session #:: 20 Physician Prescribed Exercise Modalities: Schwinn Airdyne AD-7, SciFit Stepper and SciFit Lateral Irrigator Gravity Flow Frequency: 3x/week for 12 weeks [36 sessions] Intensity: 60-80% of age predicted maximum heart rate reserve Current METSs:: 4.6 Target Heart Rate:: 90-113 Current RPE:: 12-13 Maximum Excercise HR:: 99 Resting Blood Pressure: 136/72 Maximum Exercise Blood Pressure: 140/60 EKG Type: NSR-ST w/1st degree with occas PAC/PVC Outcomes & Goals Goals:: Verbalizes understanding of THR, RPE & goal METS by session 6, Documents in home exercise log/reports 30 min aerobic 5 day/wk by DC, Demonstrates accurate pulse taking by DC and Other additional outcome/goals: see below Intervention & Plan Exercise Program Goals: Instruct on personal THR & RPE, Instruct on MET level & personal MET goal, Show patient to take own pulse /validate performance until accurate, Instruct on home exercise and Other additional plan/int Physical Activity Home Exercise Physical Activity - Home Exercise: Safe Exercise, Warm-up, Self-monitoring, Cool-Down, Home Exercise > 30 min Daily and Sitting Time <3 hours/daily Outcomes & Goals Outcomes/Goals: Demonstrates correct Warm-up/exercise Cool-Down (S3) if = 2.5 METs, Verbalizes symptoms of exercise intolerance by Session 3 (S3), Demonstrate safe equipment use (S3) & follows exercise prescrition (6) and Other: See below Intervention & Plan Plan/Intervention: Instruct warm-up & cool-down if exercising at > 2 METs, Instruct on symptoms of exercise intolerance & actions to take, Instruct & monitor on saf, Assess intial functional capacity & safety risk and Other See below 30-day Reassessments 30 day Reassessments:: Progressing Reassessment Notes & Comments:: Proper warm up and cool down explained. Pt demonstrates understanding in his daily sessions. Exercise - 90-day Assessment Physician Prescribed Exercise Modalities: Zay Brewer AD-7, SciFit Stepper and SciFit Lateral Vandiver Exercise - Final/Discharge Physician Prescribed Exercise Modalities: Zay Brewer AD-7, SciFit Stepper and SciFit Lateral Vandiver Nutrition - 30-Day Assessment Weight Mgt (Other Care) Height: 6 ft 4 in Weight:: 196 lb 8 oz BMI: 23.9 Nutrition - 60-Day Assessment Program Goals Nutrition Program Goals Patient has diagnosis of Hyperlipidemia (ICD E78)?: Yes Visit Date of Eval: 04/29/25 Session #:: 20 (Nutrition survey score of 3) Cholesterol/Lipids (Other Core Measures) Determine presence & major risk factors that modify LDL goal: Cigarette smoking, Hypertension or hypertensive medication, Low HDL cholesterol <40 mg/dL*, Family history of premature CHD in Male < 55 years: female <65 yearsFa and Age men > 45 years; women >/= 55 years Outcomes/Goals: Pt IDs own risk factors & lifestyle modifications by Session 10, Verbalizes symptoms of angina & response by session 3., Pt independently manages and Other Additional Outcomes/Goals: Intervention/Plan: Advocate for lipid panel cholesterol medication if applicable, Instruct on personal lipid levels & lipid goals/NCEP guidelines, Instruct on cholesterol and Other additional plan/int Diabetes (Other Core Measures) 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 Weight Mgt (Other Care) Height: 6 ft 4 in Weight:: 196 lb 8 oz BMI: 23.9 Diagnosis Overweight/Obesity BMI> 30% ICD-10 E66: No Diagnosis High BMI/Morbid Obesity BMI> 35% ICD-10 Z68: No Outcomes/Goals: Pt sets, maintains & shows weight loss goal & trend during rehab and Other additional outcomes/goals Intervention/Plan: Instruct on ideal BMI & set weight loss goal w/patient, Assist pt to ID & incorporate diet changes for weight loss by S9, Refer to Structured Weight Loss program as appropriate, Encourage goal of using 250-300dcal per session for weight loss and Other additional plan/interventions Healthy Eating Habits Will attend diet classes:: Yes Outcomes/Goals:: Consume diet rich in vegs,fruits,whole grain/high fiber,fish,lean meat, Limit sat/trans fats,cholesterol & added salts & sugars and Other additional outcome/goals: Intervention/Plan:: Assess current eating habits and Other Additional plan/interventions 30-day Reassessments:: Met Reassessment Notes & Comments:: Pt has attended Nutrition classes with our nurse practitioner per diem. Pt understands the benefits of a heart healthy diet. Education Gave educational materials for:: Signs & symptoms of hypoglycemia, Signs & symptoms of hyperglycemia, Relate diabetes to coronary artery disease and Healthy eating Core - Final Assessment Hypertension Resting Blood Pressure:: 140/60 [place] [employer] Hypertension Guidelines Core - 60-Day Assessment Visit Date of Eval: 04/29/25 Session #:: 20 Medication Compliance Preventative Medication(s):: Aspirin, Statin/lipid, Beta aleksander and ARB (Angiotensi Rcap) H/O mental health issues: depression, anxiety, or addiction?: No Doesn?t believe in the benefits of treatment?: No Believes medications are unnecessary or harmful?: No Has a concern about medication side effects?: No Expresses concern over the cost of medications?: No Outcomes/Goals: Verbalizes medications,desired effect & common side effects @ DC, Pt self-reports following medication regimen, Keeps card in wallet w/medications listed by DC and Other additional outcome/goals: Interventions/plans: Instruct on medication effects & side effects, Review medication list w/patient every two weeks, Instruct importance of taking meds as ordered & assist problem solving and Other additional Tobacco Use Tobacco Use: Non-smoker Hypertension Hypertension Diagnosis:: Hypertension ICD-10 I10 Resting Blood Pressure:: 136/72 Resting Blood Pressure:: 140/60 [place] [employer] Hypertension Guidelines Peak Exercise Blood Pressure:: 140/60 Outcomes/Goals: Able to verbalize/achieve optimal blood pressure <130/80, Incorporates diet changes & exercise for blood pressure control by DC and Other additional outcomes/goals Interventions/plan: Instruct on optimal blood pressure, hypertension & medications, Instruct on effects of sodium, alcohol, stress, exercise &hypertension and Other additional plan/interventions 30 day Reassessments:: Progressing Reassessment Notes & Comments:: Pt's BP's are slightly elevated on most days. Effects of sodium explained. Will continue to monitor and report to pt's physician if needed. Tobacco Cessation Referral Smoking Cessation Referral:: No Individual Education/Counseling:: No Education Schedule Given:: Yes Psychosocial - 30-Day Assess Referral to Behavioral Health PS - Interventions: Yes: Attend Stress Management Classes Outcomes/Goals: See list Psychosocial Outcomes/Goals:: ID's personal stressors & 2 strategies to manage stress by discharge and Other Additional outcome/goals: Psychosocial - 60-Day Assess VIsit Date of Eval: 04/29/25 Session #:: 20 History of previous Mental disease:: No Psychosocial Test Tool Used:: [employer] QOL Cardiac and PHQ-9 Questionnaire phq-9 Severity See PHQ-9 Score: 2 Referral to Behavioral Health PS - Interventions: Yes: Attend Stress Management Classes Outcomes/Goals: See list Psychosocial Outcomes/Goals:: ID's personal stressors & 2 strategies to manage stress by discharge and Other Additional outcome/goals: Intervention/Plan: See List Interventions/Plan:: Assess stressors,coping strategies & signs of derpression on admission, Instruct/assist pt to develop coping & personal stress Mgt strategies, Refer to Behavioral Health if appropriate, Refer to Physician if appropriate, Instruct patient to recognize signs & symptoms of depression, Instruct patient to recog and Other additional plan/intervention 30-day Reassessments: 30 day Reassessments:: Met Reassessment Notes & Comments:: Pt denies any psychosocial issues at this time. Psychosocial - 90-Day Assess Referral to Behavioral Health PS - Interventions: Yes: Attend Stress Management Classes Psychosocial - Final Assessmen Referral to Behavioral Health PS - Interventions: Yes: Attend Stress Management Classes Nutrition - 90-Day Assessment Weight Mgt (Other Care) Height: 6 ft 4 in Weight:: 196 lb 8 oz BMI: 23.9 Nutrition - Final Assessment Weight Mgt (Other Care) Height: 6 ft 4 in Weight:: 196 lb 8 oz BMI: 23.9
[2025-04-29 08:35] VITALS: BP 136/72; BP 140/60; BMI 23.9
== END 2025-05-07 23:59 ==
LOC: CR 10:15
PROVIDERS: PCP Family Medicine; Referring Provider Internal Medicine Cardiovascular Disease; Visit Provider Internal Medicine Cardiovascular Disease
DX: Z95.1 Presence of aortocoronary bypass graft (principal)
CPT/HCPCS: 93798